=== PATIENT | female | born 1945 | race Caucasian/White ===

== ENCOUNTER 2017-05-06 14:33 | Emergency (ER) | payer MEDICARE, BC, OTHER ==
--- NOTE | 2017-05-06 14:46 | EDM.PDOC ---
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 She complains also of left ribs which she injured in the past they have left wrist and left knee pain. She has had a total knee replacement. Should not pass out or blackout and she did not strike her face but says that after she went to the ground she may have skidded her face so there is some sensitivity to the skin there. She has no facial pain no neck or back pain and no chest pain except underneath the breast on the left. Prior to this event she was in her usual state of good health and was having a normal day and had no systemic complaints of dizziness lightheadedness chest pain shortness of breath abdominal pain nausea vomiting fevers or chills. Patient denies any neurosensory changes and arrives without backboard and collar due to her lack of pain there. Patient says her last INR was 2.2. She states that she is on Coumadin currently because of a history of A. fib and because of her simple fall with anticoagulation she merited trauma alert. Review of systems: As per history of present illness and below otherwise all systems reviewed and negative. Past medical history: As per history of present illness and as reviewed below otherwise noncontributory. Surgical history: As per history of present illness and as reviewed below otherwise noncontributory. Social history: No reported history of drug or alcohol abuse. Family history: As per history of present illness and as reviewed below otherwise noncontributory. Physical exam: Gen.: Well-developed overweight female who is nontoxic and speaking clearly and easily in the ED. Vital signs were noted by me HEENT: Atraumatic, normocephalic, pupils reactive, negative for conjunctival pallor or scleral icterus, mucous membranes moist, throat clear, neck supple, nontender, trachea midline. There are no midline step-offs in his defects of the cervical spine. There is some pinkish erythema at her mid for head and left cheek area but there are no palpable bony deformities or tenderness and no discrete skin breaks. Teeth are intact. Lungs: Clear to auscultation, breath sounds equal bilaterally, chest tender at the left anterior and lateral ribs without ecchymosis crepitus defects or deformities. There is no worker breathing or sensory muscle use Heart: S1S2, regular rate and irregular rhythm no overt murmurs Abdomen: Soft, nondistended, nontender. Negative for masses or hepatosplenomegaly. Negative for costovertebral tenderness. Pelvis: Stable nontender. Genitourinary: Deferred. Rectal: Deferred. Extremities: Atraumatic appearing throughout but there is some mild tenderness at the left dorsal wrist as well as the anterior knee without defects deformities ecchymosis or gross swelling. Patient has full range of motion of all of these extremities. The legs are, negative for cords or calf pain. Neurovascular unremarkable. Neuro: Awake, alert, oriented. Cranial nerves II through XII unremarkable. Cerebellum unremarkable. Motor and sensory unremarkable throughout. Exam nonfocal. Back: There are no midline step-offs in his defects of the thoracic or lumbar spine no posterior rib or posterior pelvis tenderness. Diagnostics: X-ray of left wrist left knee and left ribs with chest CBC CMP INR EKG Therapeutics: Nebo Please note that because this is a trauma alert was called I will inform and notify Dr. Niadu our surgeon on-call of the findings if it mandates his involvement but at this point it seems to be all injuries that can be managed as an outpatient pending those testing results. All x-rays are negative for any acute findings and the patient is aware of this. She is also aware of her INR of 1.49 and she will contact [facility] where she manages her Coumadin to ask for adjustments in her dosing. I have offered the patient a wrist splint and an Everett bandage for her knee and she declines at this time. Impression: Simple fall with left wrist left knee and left chest wall contusions stable history of Coumadin use with subtherapeutic INR Definitive disposition and diagnosis as appropriate pending reevaluation and review of above. lt rib Pain Score (Numeric/FACES): 8 - Related Data Allergies Allergy/AdvReac Type Severity Reaction Status Date / Time amoxicillin Allergy Rash Verified 11/05/15 11:23 cephalexin monohydrate Allergy Rash Verified 11/05/15 11:23 [From Keflex] Penicillins Allergy Rash Verified 11/05/15 11:23 rofecoxib [From Vioxx] Allergy Rash Verified 11/05/15 11:23 tetanus toxoid, adsorbed Allergy Rash Verified 11/05/15 11:23 valacyclovir HCl Allergy Rash Verified 11/05/15 11:23 [From Valtrex] wool Allergy Rash Verified 11/05/15 11:23 Avalox Allergy Rash Uncoded 11/05/15 11:23 Bextra Allergy Rash Uncoded 11/05/15 11:23 celebrex Allergy Rash Uncoded 11/05/15 11:23 ferlacit Allergy Hypotension Uncoded 11/05/15 11:23 macrobid Allergy Rash Uncoded 11/05/15 11:23 plastic tape Allergy Rash Uncoded 11/05/15 11:23 Zofran Allergy Rash Uncoded 11/05/15 11:23 ED ROS GENERAL - Review of Systems Review Of Systems: ROS reveals no pertinent complaints other than HPI. ED EXAM, GENERAL - Physical Exam Exam: See Below (See dictation) Course - Vital Signs Last Recorded V/S: Last Vital Signs Temp 36.3 C 05/06/17 15:00 Pulse 83 05/06/17 15:00 Resp 18 05/06/17 15:00 BP 107/66 05/06/17 15:00 Pulse Ox 95 05/06/17 15:00 - Orders/Labs/Meds Orders: Active Orders 24 hr Category Date Time Status EKG Documentation Completion [RC] STAT Care 05/06/17 14:46 Active Labs: Laboratory Tests 05/06/17 05/06/17 05/06/17 Range/Units 15:10 15:10 15:10 WBC 6.79 (4.0-11.0) K/uL RBC 3.89 L (4.30-5.90) M/uL Hgb 11.7 L (12.0-16.0) g/dL Hct 36.1 (36.0-46.0) % MCV 92.8 (80.0-98.0) fL MCH 30.1 (27.0-32.0) pg MCHC 32.4 (31.0-37.0) g/dL RDW Std Deviation 44.9 (28.0-62.0) fl RDW Coeff of Radha 13 (11.0-15.0) % Plt Count 185 (150-400) K/uL MPV 10.60 (7.40-12.00) fL Neut % (Auto) 66.3 (48.0-80.0) % Lymph % (Auto) 23.7 (16.0-40.0) % [place] % (Auto) 7.4 (0.0-15.0) % Eos % (Auto) 2.2 (0.0-7.0) % Baso % (Auto) 0.4 (0.0-1.5) % Neut # (Auto) 4.5 (1.4-5.7) K/uL Lymph # (Auto) 1.6 (0.6-2.4) K/uL [place] # (Auto) 0.5 (0.0-0.8) K/uL Eos # (Auto) 0.2 (0.0-0.7) K/uL Baso # (Auto) 0.0 (0.0-0.1) K/uL Nucleated RBC % 0.0 /100WBC Nucleated RBCs # 0 K/uL INR 1.49 H (0.86-1.11) Sodium 141 (136-146) mmol/L Potassium 3.8 (3.5-5.1) mmol/L Chloride 105 (98-110) mmol/L Carbon Dioxide 26 (21-31) mmol/L BUN 28 H (6.0-23.0) mg/dL Creatinine 1.2 (0.6-1.5) mg/dL Est Cr Clr Drug Dosing 44.63 mL/min Estimated GFR (MDRD) 44.5 ml/min Glucose 123 H (60-110) mg/dL Calcium 9.2 (8.8-10.8) mg/dL Total Bilirubin 0.4 (0.1-1.5) mg/dL AST 23 (5-40) IU/L ALT 13 (8-54) IU/L Alkaline Phosphatase 72 (40-150) Total Protein 7.1 (6.0-8.0) g/dL Albumin 3.7 (3.4-4.8) g/dL Globulin 3.4 (2.0-3.5) g/dL Albumin/Globulin Ratio 1.1 L (1.3-2.8) Meds: Medications Discontinued Medications Generic Name Dose Route Start Last Admin Trade Name Freq PRN Reason Stop Dose Admin Hydrocodone Bitart/Acetaminophen 1 tab 05/06/17 15:09 Nebo 325-7.5 Mg PO 05/06/17 15:10 ONETIME ONE Ketorolac Tromethamine 60 mg 05/06/17 15:24 05/06/17 15:49 Toradol IM 05/06/17 15:25 60 mg ONETIME ONE Administration Departure - Departure Time of Disposition: 16:52 Disposition: Home, Self-Care 01 Condition: Good Clinical Impression: Subtherapeutic international normalized ratio (INR) Chest wall contusion Qualifiers: Encounter type: initial encounter Laterality: left Qualified Code(s): S20.212A - Contusion of left front wall of thorax, initial encounter Contusion of wrist, left Qualifiers: Encounter type: initial encounter Qualified Code(s): S60.212A - Contusion of left wrist, initial encounter Fall Qualifiers: Encounter type: initial encounter Qualified Code(s): W19.XXXA - Unspecified fall, initial encounter Contusion of left knee Qualifiers: Encounter type: initial encounter Qualified Code(s): S80.02XA - Contusion of left knee, initial encounter - Discharge Information Referrals: PCP,None [Ordering Only Provider] - Additional Instructions: The following information is given to patients seen in the emergency department who are being discharged to home. This information is to outline your options for follow-up care. We provide all patients seen in our emergency department with a follow-up referral. The need for follow-up, as well as the timing and circumstances, are variable depending upon the specifics of your emergency department visit. If you don't have a primary care physician on staff, we will provide you with a referral. We always advise you to contact your personal physician following an emergency department visit to inform them of the circumstance of the visit and for follow-up with them and/or the need for any referrals to a consulting specialist. The emergency department will also refer you to a specialist when appropriate. This referral assures that you have the opportunity for followup care with a specialist. All of these measure are taken in an effort to provide you with optimal care, which includes your followup. Under all circumstances we always encourage you to contact your private physician who remains a resource for coordinating your care. When calling for followup care, please make the office aware that this follow-up is from your recent emergency room visit. If for any reason you are refused follow-up, please contact the [facility] emergency department at and ask to speak to the emergency department charge nurse. [facility] Primary [facility]- [facility] Medicine [facility] [address], [place] [address] [address] Please follow-up with one of the clinic providers for further care and evaluation of today's events and return to ER as needed and as discussed. Ice and elevate all areas of discomfort and use medications [id number] for pain. - My Orders Last 24 Hours: My Active Orders 05/06/17 14:46 EKG Documentation Completion [RC] STAT - Assessment/Plan Last 24 Hours: My Active Orders 05/06/17 14:46 EKG Documentation Completion [RC] STAT
[2017-05-06] MEDS ORDERED: Acetaminophen/HYDROcodone 325-7.5 MG Tab PO ONE (15:09)
[2017-05-06] MEDS ORDERED: Ketorolac 60 MG/2 ML SDV IM ONE (15:24)
--- NOTE | 2017-05-06 16:40 | CR ---
EXAMINATION: PA chest and left RIBS HISTORY: Trauma. FINDINGS: The trachea is midline. The cardiomediastinal silhouette is within normal limits. No pulmonary infilt rates, effusions or pneumothorax. Bilateral shoulder replacement hardware noted. No definite acute appearing displaced left-sided rib f racture identified. IMPRESSION: No acute cardiopulmonary process.
--- NOTE | 2017-05-06 16:41 | CR ---
EXAMINATION: Left knee HISTORY: Pain COMPARISON: None TECHNIQUE: 3 views FINDINGS: Left total knee hardware is demonstrated in good position. Definite fracture or acute osseo us abnormality noted. There is a well-corticated ossific densities superior to the patella, likely so ft tissue calcification or old injury. There is induration of Hoffa's fat pad and likely a trace join t effusion. No mineralization appears osteopenic. IMPRESSION: 1. Left total knee hardware without a definite acute osseous abnormality. 2. Probable trace joint effusion.
--- NOTE | 2017-05-06 16:42 | CR ---
EXAMINATION: Left wrist HISTORY: Trauma COMPARISON: None TECHNIQUE: 3 views FINDINGS: There is no acute osseous abnormality, dislocation, or fracture. 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 The osseous structures appear otherwise mildly osteopenic. Mild v ascular calcifications. IMPRESSION: 1. Degenerative changes without acute findings.
== END 2017-05-06 17:45 | disposition home or self-care (01) ==
LOC: MW.ED 14:33
DX: S80.02XA Contusion of left knee, initial encounter (principal); S60.212A Contusion of left wrist, initial encounter; S20.212A Contusion of left front wall of thorax, initial encounter; R79.1 Abnormal coagulation profile; Z96.659 Presence of unspecified artificial knee joint; Z79.01 Long term (current) use of anticoagulants; Z88.0 Allergy status to penicillin; Z88.8 Allergy status to other drugs, medicaments and biological substances; Z91.048 Other nonmedicinal substance allergy status; Z88.7 Allergy status to serum and vaccine; W19.XXXA Unspecified fall, initial encounter; Y93.89 Activity, other specified
CPT/HCPCS: 36415; 71101; 73110; 73562; 80053; 85025; 85610; 93005; 96372; 99285; A9270; J1885; 99284; G0390

== ENCOUNTER 2017-07-04 07:42 | Emergency (ER) | payer MEDICARE, BC, OTHER ==
--- NOTE | 2017-07-04 10:09 | CT ---
CT of the abdomen and pelvis without contrast. HISTORY: Pain TECHNIQUE: Axial CT images were obtained of the abdomen and pelvis without contrast. Coronal and sagi ttal reconstructions obtained. FINDINGS: The lung bases are clear, no pleural effusion. The liver, spleen, adrenal glands, and pancreas appear unremarkable for noncontrast examination. Cyst ectomy. There is no bulky retroperitoneal lymphadenopathy. No abdominal ascites. Minimal nonspecific contreras mesentery appearance. There are no calcifications noted within the kidneys or along the courses of the ureters bilaterally. The large and small bowel are normal in caliber without evidence of obstruction. There is no bulky p elvic lymphadenopathy. No free fluid. No free air. The urinary bladder appears normal. Sutural calcif ications noted along the ventral abdomen. No evidence of an inguinal hernia. Degenerative changes noted within the lumbar spine. Subacute appearing lateral anterolateral rib frac tures are noted. IMPRESSION: 1. No acute findings within the abdomen or pelvis. 2. Subacute appearing anterolateral rib fractures bilaterally.
--- NOTE | 2017-07-04 10:16 | EDM.PDOC ---
ED HPI GENERAL MEDICAL PROBLEM - General Chief Complaint: Lower Extremity Injury/Pain Stated Complaint: LEFT LEG PAIN Time Seen by Provider: 07/04/17 07:50 Source of Information: Reports: Patient History Limitations: Reports: No Limitations - History of Present Illness INITIAL COMMENTS - FREE TEXT/NARRATIVE: History of present illness: [] Review of systems: As per history of present illness and below otherwise all systems reviewed and negative. Past medical history: As per history of present illness and as reviewed below otherwise noncontributory. Surgical history: As per history of present illness and as reviewed below otherwise noncontributory. Social history: No reported history of drug or alcohol abuse. Family history: As per history of present illness and as reviewed below otherwise noncontributory. Physical exam: General: Well developed, well nourished in NAD HEENT: Atraumatic, normocephalic, pupils reactive, negative for conjunctival pallor or scleral icterus, mucous membranes moist, throat clear, neck supple, nontender, trachea midline. Lungs: Clear to auscultation, breath sounds equal bilaterally, chest nontender. Heart: S1S2, regular, negative for clicks, rubs, or JVD. Abdomen: Soft, nondistended, nontender. Negative for masses or hepatosplenomegaly. Negative for costovertebral tenderness. Pelvis: Stable nontender. Genitourinary: Deferred. Rectal: Deferred. Extremities: Atraumatic, negative for cords or calf pain. Neurovascular unremarkable. Neuro: Awake, alert, oriented. Cranial nerves II through XII unremarkable. Cerebellum unremarkable. Motor and sensory unremarkable throughout. Exam nonfocal. Diagnostics: [] Therapeutics: [] Impression: [] Plan: [] Definitive disposition and diagnosis as appropriate pending reevaluation and review of above. left groin Pain Score (Numeric/FACES): 10 - Related Data Allergies Allergy/AdvReac Type Severity Reaction Status Date / Time amoxicillin Allergy Rash Verified 07/04/17 07:55 cephalexin monohydrate Allergy Rash Verified 07/04/17 07:55 [From Keflex] Penicillins Allergy Rash Verified 07/04/17 07:55 rofecoxib [From Vioxx] Allergy Rash Verified 07/04/17 07:55 tetanus toxoid, adsorbed Allergy Rash Verified 07/04/17 07:55 valacyclovir HCl Allergy Rash Verified 07/04/17 07:55 [From Valtrex] wool Allergy Rash Verified 07/04/17 07:55 Avalox Allergy Rash Uncoded 07/04/17 07:55 Bextra Allergy Rash Uncoded 07/04/17 07:55 celebrex Allergy Rash Uncoded 07/04/17 07:55 ferlacit Allergy Hypotension Uncoded 07/04/17 07:55 macrobid Allergy Rash Uncoded 07/04/17 07:55 plastic tape Allergy Rash Uncoded 07/04/17 07:55 Zofran Allergy Rash Uncoded 07/04/17 07:55 Home Meds: Home Meds Acetaminophen [Tylenol] 07/04/17 [History] Bumetanide 2 mg PO BID 07/04/17 [History] Carvedilol [Coreg] 25 mg PO BID 07/04/17 [History] Cyclobenzaprine [Flexeril] 10 mg PO BID PRN #16 tablet 07/04/17 [Rx] Gabapentin [Neurontin] 300 mg PO TID 07/04/17 [History] Metolazone 2.5 mg PO ASDIRECTED 07/04/17 [History] Naproxen Sodium [Aleve] 07/04/17 [History] Potassium Chloride 10 meq PO BID 07/04/17 [History] Warfarin [Coumadin] 0.5 tab PO DAILY 07/04/17 [History] diphenhydrAMINE [Benadryl] 50 mg PO Q4H 07/04/17 [History] rOPINIRole HCl [Requip] 3 mg PO TID 07/04/17 [History] traMADol [Ultram] 50 mg PO ONETIME PRN 07/04/17 [History] Past Medical History HEENT History: Reports: Cataract Cardiovascular History: Reports: Afib Musculoskeletal History: Reports: Other (See Below) Other Musculoskeletal History: MS - Infectious Disease History Infectious Disease History: Reports: Chicken Pox, Measles, Mumps, Shingles - Past Surgical History HEENT Surgical History: Reports: Cataract Surgery, Tonsillectomy GI Surgical History: Reports: Appendectomy, Cholecystectomy, Other (See Below) Other GI Surgeries/Procedures: gastric by pass surgery Female Surgical History: Reports: Hysterectomy, Other (See Below) Other Female Surgeries/Procedures: bladder suspension Musculoskeletal Surgical History: Reports: Knee Replacement, Shoulder Replacement Social & Family History - Family History Family Medical History: Noncontributory - Tobacco Use Smoking Status *Q: Never Smoker Second Hand Smoke Exposure: No - Caffeine Use Caffeine Use: Reports: Coffee, Soda, Tea - Recreational Drug Use Recreational Drug Use: No Review of Systems - Review of Systems Review Of Systems: See Below (See history of present illness) ED EXAM, GENERAL - Physical Exam Exam: See Below (See history of present illness) Course - Vital Signs Last Recorded V/S: Last Vital Signs Temp 97.6 F 07/04/17 07:55 Pulse 82 07/04/17 10:09 Resp 16 07/04/17 10:09 BP 113/60 07/04/17 10:09 Pulse Ox 95 07/04/17 10:09 - Orders/Labs/Meds Labs: Laboratory Tests 07/04/17 07/04/17 Range/Units 08:27 08:27 WBC 5.63 (4.0-11.0) K/uL RBC 3.58 L (4.30-5.90) M/uL Hgb 10.6 L (12.0-16.0) g/dL Hct 33.3 L (36.0-46.0) % MCV 93.0 (80.0-98.0) fL MCH 29.6 (27.0-32.0) pg MCHC 31.8 (31.0-37.0) g/dL RDW Std Deviation 46.9 (28.0-62.0) fl RDW Coeff of Radha 14 (11.0-15.0) % Plt Count 192 (150-400) K/uL MPV 10.10 (7.40-12.00) fL Neut % (Auto) 61.4 (48.0-80.0) % Lymph % (Auto) 26.1 (16.0-40.0) % [place] % (Auto) 8.0 (0.0-15.0) % Eos % (Auto) 4.1 (0.0-7.0) % Baso % (Auto) 0.4 (0.0-1.5) % Neut # (Auto) 3.5 (1.4-5.7) K/uL Lymph # (Auto) 1.5 (0.6-2.4) K/uL [place] # (Auto) 0.5 (0.0-0.8) K/uL Eos # (Auto) 0.2 (0.0-0.7) K/uL Baso # (Auto) 0.0 (0.0-0.1) K/uL Nucleated RBC % 0.0 /100WBC Nucleated RBCs # 0 K/uL INR 1.48 H (0.86-1.11) Departure - Departure Time of Disposition: 10:16 Disposition: Home, Self-Care 01 Condition: Good Clinical Impression: Strain of left inguinal muscle Qualifiers: Encounter type: initial encounter Qualified Code(s): S39.013A - Strain of muscle, fascia and tendon of pelvis, initial encounter - Discharge Information Prescriptions: Cyclobenzaprine [Flexeril] 10 mg PO BID PRN #16 tablet PRN Reason: Pain Referrals: Jen Penn DO [Primary Care Provider] - Forms: ED Department Discharge Additional Instructions: The following information is given to patients seen in the emergency department who are being discharged to home. This information is to outline your options for follow-up care. We provide all patients seen in our emergency department with a follow-up referral. The need for follow-up, as well as the timing and circumstances, are variable depending upon the specifics of your emergency department visit. If you don't have a primary care physician on staff, we will provide you with a referral. We always advise you to contact your personal physician following an emergency department visit to inform them of the circumstance of the visit and for follow-up with them and/or the need for any referrals to a consulting specialist. The emergency department will also refer you to a specialist when appropriate. This referral assures that you have the opportunity for follow-up care with a specialist. All of these measure are taken in an effort to provide you with optimal care, which includes your follow-up. Under all circumstances we always encourage you to contact your private physician who remains a resource for coordinating your care. When calling for follow-up care, please make the office aware that this follow-up is from your recent emergency room visit. If for any reason you are refused follow-up, please contact the [facility] Emergency Department at and asked to speak to the emergency department charge nurse. Flexeril, ice and heat to the area follow-up with primary care as needed return if symptoms worsen or change [facility] [address] [place] [address]
== END 2017-07-04 10:38 | disposition home or self-care (01) ==
LOC: MW.ED 07:42
DX: S39.012A Strain of muscle, fascia and tendon of lower back, initial encounter (principal); I48.91 Unspecified atrial fibrillation; Z79.01 Long term (current) use of anticoagulants; Z88.0 Allergy status to penicillin; Z88.1 Allergy status to other antibiotic agents; Z88.7 Allergy status to serum and vaccine; Z91.048 Other nonmedicinal substance allergy status; X58.XXXA Exposure to other specified factors, initial encounter; Z88.8 Allergy status to other drugs, medicaments and biological substances
CPT/HCPCS: 36415; 74176; 74176-26; 85025; 85610; 99282; 99284-25

== ENCOUNTER 2018-01-12 17:28 | Emergency (ER) | payer MEDICARE, BC, OTHER ==
[2018-01-12] MEDS ORDERED: Ketorolac 60 MG/2 ML SDV IM ONE (18:04)
--- NOTE | 2018-01-12 19:06 | EDM.PDOC ---
ED HPI GENERAL MEDICAL PROBLEM - General Chief Complaint: Back Pain or Injury Stated Complaint: BACK PAIN Time Seen by Provider: 01/12/18 17:29 Source of Information: Reports: Patient History Limitations: Reports: No Limitations - History of Present Illness INITIAL COMMENTS - FREE TEXT/NARRATIVE: HISTORY AND PHYSICAL: History of present illness: Patient is a 72-year-old male who presents to the emergency room today with complaints of low back pain without sciatica. She states she recently did drive in the car over the past few days and has been sedentary. While at work she twisted to grab something off a shelf and had immediate pain to her low back that spread across to both sides. It does not radiate down glutes or down the leg. She denies any recent injury, trauma or fall. States she has used a leftover muscle relaxer which has not seemed to help at this time. She denies any fever, chills, chest pain, shortness of breath or cough. Denies any abdominal pain, nausea, vomiting, diarrhea/constipation or dysuria. Review of systems: As per history of present illness and below otherwise all systems reviewed and negative. Past medical history: As per history of present illness and as reviewed below otherwise noncontributory. Surgical history: As per history of present illness and as reviewed below otherwise noncontributory. Social history: No reported history of drug or alcohol abuse. Family history: As per history of present illness and as reviewed below otherwise noncontributory. Physical exam: General: Well-developed and well-nourished 72-year-old female. Alert and oriented. Nontoxic appearing and in no acute distress. HEENT: Atraumatic, normocephalic, pupils equal and reactive bilaterally, negative for conjunctival pallor or scleral icterus, mucous membranes moist, throat clear, neck supple, nontender, trachea midline. No drooling or trismus noted. No meningeal signs Lungs: Clear to auscultation, breath sounds equal bilaterally, chest nontender. Heart: S1S2, regular rate and rhythm without overt murmur Abdomen: Soft, nondistended, nontender. Negative for masses or hepatosplenomegaly. Negative for costovertebral tenderness. Pelvis: Stable nontender. Genitourinary: Deferred. Rectal: Deferred. Skin: Intact, warm, dry. No lesions or rashes noted. C-spine/Back: No pinpoint vertebral tenderness upon palpation. No crepitus, step -offs or obvious deformities. Patient is ambulatory and able to walk on her heels and toes. Denies any urinary or fecal incontinence. Deep tendon reflexes intact. Denies any numbness or tingling to her distal extremities. Musculoskeletal tenderness when palpating above the area her iliac crests bilaterally Extremities: Atraumatic, moves all extremities per self without difficulty or deficits. negative for cords or calf pain. Neurovascular unremarkable. Neuro: Awake, alert, oriented. Cranial nerves II through XII unremarkable. Cerebellum unremarkable. Motor and sensory unremarkable throughout. Exam nonfocal. Notes: I will obtain a lumbar x-ray at this time. IM Toradol and Flexeril given while waiting for results. Pain does appear muscle related in nature. X-ray shows no evidence of fracture or dislocations. She does have degenerative disc disease throughout the lumbar spine. Grade 1 spondylolysis at L4-L5. This information was shared with the patient. She is aware of the limitations that x- ray provides. Since she already has Flexeril and felt that this did not help alleviate her pain, I will give her [place]. Encouraged her to not to combine this with other medications that cause sedation such as tramadol for Flexeril. We discussed following up with her primary care provider for further evaluation and management as she may need physical therapy if she continues to have discomfort. She is agreeable to plan of care. Denies any further questions or concerns at this time. Diagnostics: Lumbar Xray Therapeutics: Toradol, Norflex Impression: Lumbar Back Pain Degenerative disc disease Plan: 1. Gentle heat and stretching. Avoid in-activity as this can tighten the muscles and cause increased pain. 2. [place] is a narcotic, so do not take when driving or needing to be functioning outside the house. 3. Follow up with your primary care provider later this week. Return to the ED as needed as discuss. Definitive disposition and diagnosis as appropriate pending reevaluation and review of above. Duration: Day(s): Location: Reports: Back Back Pain Score (Numeric/FACES): 8 - Related Data Allergies Allergy/AdvReac Type Severity Reaction Status Date / Time amoxicillin Allergy Rash Verified 01/12/18 17:39 cephalexin monohydrate Allergy Rash Verified 01/12/18 17:39 [From Keflex] Penicillins Allergy Rash Verified 01/12/18 17:39 rofecoxib [From Vioxx] Allergy Rash Verified 01/12/18 17:39 tetanus toxoid, adsorbed Allergy Rash Verified 01/12/18 17:39 valacyclovir HCl Allergy Rash Verified 01/12/18 17:39 [From Valtrex] wool Allergy Rash Verified 01/12/18 17:39 Avalox Allergy Rash Uncoded 01/12/18 17:39 Bextra Allergy Rash Uncoded 01/12/18 17:39 celebrex Allergy Rash Uncoded 01/12/18 17:39 ferlacit Allergy Hypotension Uncoded 01/12/18 17:39 macrobid Allergy Rash Uncoded 01/12/18 17:39 plastic tape Allergy Rash Uncoded 01/12/18 17:39 Zofran Allergy Rash Uncoded 01/12/18 17:39 Home Meds: Home Meds Acetaminophen [Tylenol] 07/04/17 [History] Bumetanide 2 mg PO BID 07/04/17 [History] Carvedilol [Coreg] 25 mg PO BID 07/04/17 [History] Cyclobenzaprine [Flexeril] 10 mg PO BID PRN #16 tablet 07/04/17 [Rx] Gabapentin [Neurontin] 300 mg PO TID 07/04/17 [History] Metolazone 2.5 mg PO ASDIRECTED 07/04/17 [History] Naproxen Sodium [Aleve] 07/04/17 [History] Potassium Chloride 10 meq PO BID 07/04/17 [History] Warfarin [Coumadin] 0.5 tab PO DAILY 07/04/17 [History] diphenhydrAMINE [Benadryl] 50 mg PO Q4H 07/04/17 [History] rOPINIRole HCl [Requip] 3 mg PO TID 07/04/17 [History] traMADol [Ultram] 50 mg PO ONETIME PRN 07/04/17 [History] Past Medical History HEENT History: Reports: Cataract Cardiovascular History: Reports: Afib Musculoskeletal History: Reports: Other (See Below) Other Musculoskeletal History: MS - Infectious Disease History Infectious Disease History: Reports: Chicken Pox, Measles, Mumps, Shingles - Past Surgical History HEENT Surgical History: Reports: Cataract Surgery, Tonsillectomy GI Surgical History: Reports: Appendectomy, Cholecystectomy, Other (See Below) Other GI Surgeries/Procedures: gastric by pass surgery Female Surgical History: Reports: Hysterectomy, Other (See Below) Other Female Surgeries/Procedures: bladder suspension Musculoskeletal Surgical History: Reports: Knee Replacement, Shoulder Replacement Social & Family History - Family History Family Medical History: Noncontributory - Tobacco Use Smoking Status *Q: Never Smoker - Caffeine Use Caffeine Use: Reports: Coffee, Soda, Tea ED ROS GENERAL - Review of Systems Review Of Systems: ROS reveals no pertinent complaints other than HPI. ED EXAM,LOWER BACK PAIN/INJURY - Physical Exam Exam: See Below (See dictation) Course - Vital Signs Last Recorded V/S: Last Vital Signs Temp 97 F 01/12/18 17:42 Pulse 87 01/12/18 17:42 Resp 20 01/12/18 17:42 BP 123/66 01/12/18 17:42 Pulse Ox 97 01/12/18 17:42 - Orders/Labs/Meds Orders: Active Orders 24 hr Category Date Time Status Lumbar Spine 2 or 3V [CR] Stat Exams 01/12/18 18:04 Taken Meds: Medications Discontinued Medications Generic Name Dose Route Start Last Admin Trade Name Juniorq PRN Reason Stop Dose Admin Ketorolac Tromethamine 60 mg 01/12/18 18:04 01/12/18 18:25 Toradol IM 01/12/18 18:05 60 mg ONETIME ONE Administration Orphenadrine Citrate 60 mg 01/12/18 18:04 01/12/18 18:25 Norflex IM 01/12/18 18:05 60 mg NOW STA Administration Departure - Departure Time of Disposition: 19:06 Disposition: Home, Self-Care 01 Clinical Impression: Lumbar back pain Degenerative disc disease Qualifiers: Spinal region: lumbar Qualified Code(s): M51.36 - Other intervertebral disc degeneration, lumbar region - Discharge Information Referrals: PCP,None [Primary Care Provider] - Forms: ED Department Discharge Additional Instructions: The following information is given to patients seen in the emergency department who are being discharged to home. This information is to outline your options for follow-up care. We provide all patients seen in our emergency department with a follow-up referral. The need for follow-up, as well as the timing and circumstances, are variable depending upon the specifics of your emergency department visit. If you don't have a primary care physician on staff, we will provide you with a referral. We always advise you to contact your personal physician following an emergency department visit to inform them of the circumstance of the visit and for follow-up with them and/or the need for any referrals to a consulting specialist. The emergency department will also refer you to a specialist when appropriate. This referral assures that you have the opportunity for follow-up care with a specialist. All of these measure are taken in an effort to provide you with optimal care, which includes your follow-up. Under all circumstances we always encourage you to contact your private physician who remains a resource for coordinating your care. When calling for follow-up care, please make the office aware that this follow-up is from your recent emergency room visit. If for any reason you are refused follow-up, please contact the [facility] Emergency Department at and asked to speak to the emergency department charge nurse. [facility] [address] [place] [id number] 1. Gentle heat and stretching. Avoid in-activity as this can tighten the muscles and cause increased pain. 2. [place] is a narcotic, so do not take when driving or needing to be functioning outside the house. 3. Follow up with your primary care provider later this week. Return to the ED as needed as discuss. - My Orders Last 24 Hours: My Active Orders 01/12/18 18:04 Lumbar Spine 2 or 3V [CR] Stat - Assessment/Plan Last 24 Hours: My Active Orders 01/12/18 18:04 Lumbar Spine 2 or 3V [CR] Stat
--- NOTE | 2018-01-13 08:54 | CR ---
EXAM DATE: 01/12/18 PATIENT'S AGE: 72 Patient: KATYA DAILEY Facility: [place], [place] Site . Site : 1945 Study: XRay Spine Lumbar [id number]/18/2018 7:37:43 PM Ordering Physician: Doctor Beebe Final Report: INDICATION: Pain. FINDINGS: Three views of the lumbar spine were obtained. There is no acute fracture seen. There is scoliosis concave right. There is grade 1 spondylolisthesis of L4 on L5. There is marked degenerative disc disease at L4-5 can L5-S1 level as well as degenerative facet changes at L4-5 and L5-S1. There is marked degenerative disk disease in the visualized portion of the lower thoracic spine and at the T12-L1 level. There is moderate degenerative disc disease at the L1-2 level. There are vascular calcifications. The bones are osteopenic. IMPRESSION: Grade 1 spondylolysis of L4-L5. Degenerative disc disease in the lumbar spine most pronounced at the L4-5 and L5 -S1. Degenerative facet change L4-5 and L5-S1. Degenerative disk disease lower thoracic spine. No acute bone abnormality seen. Dictated by Kenyon Iglesias MD @ 01/12/2018 7:56:10 PM Dictated by: Kenyon Iglesias MD @ 01/12/2018 19:56:24 (Electronic Signature) Report Signed by Proxy. VINH
== END 2018-01-12 20:04 | disposition home or self-care (01) ==
LOC: MW.ED 17:28
DX: M51.36 Other intervertebral disc degeneration, lumbar region (principal); Z88.8 Allergy status to other drugs, medicaments and biological substances; Z79.899 Other long term (current) drug therapy; Z88.7 Allergy status to serum and vaccine; Z91.048 Other nonmedicinal substance allergy status; Z88.1 Allergy status to other antibiotic agents; Z79.01 Long term (current) use of anticoagulants
CPT/HCPCS: 72100; 96372; 99283; J1885; J2360

== ENCOUNTER 2018-04-05 15:55 | Inpatient (IN) | payer MEDICARE, BC, OTHER ==
--- NOTE | 2018-04-05 16:11 | EDM.PDOC ---
ED HPI GENERAL MEDICAL PROBLEM - General Chief Complaint: Chest Pain Stated Complaint: SHORTNESS OF BREATH Time Seen by Provider: 04/05/18 16:05 Source of Information: Reports: Patient History Limitations: Reports: No Limitations - History of Present Illness INITIAL COMMENTS - FREE TEXT/NARRATIVE: History of present illness: []Patient started having chest pain at 3 PM today. She has been having increasing leg swelling and Dr. Rush told her to take one extra diuretic pill per dose for the last week but it has not been helping. Patient has been having increasing anemia and had a colonoscopy 3 days ago in [place] which she was told just showed hemorrhoids. She has not been given the formal reading. Review of systems: As per history of present illness and below otherwise all systems reviewed and negative. Past medical history: As per history of present illness and as reviewed below otherwise noncontributory. Surgical history: As per history of present illness and as reviewed below otherwise noncontributory. Social history: No reported history of drug or alcohol abuse. Family history: As per history of present illness and as reviewed below otherwise noncontributory. Physical exam: General: Well developed, well nourished in NAD HEENT: Atraumatic, normocephalic, pupils reactive, negative for conjunctival pallor or scleral icterus, mucous membranes moist, throat clear, neck supple, nontender, trachea midline. Lungs: Clear to auscultation, breath sounds equal bilaterally, chest nontender. Heart: S1S2, regular, negative for clicks, rubs, or JVD. Abdomen: Soft, nondistended, nontender. Negative for masses or hepatosplenomegaly. Negative for costovertebral tenderness. Pelvis: Stable nontender. Genitourinary: Deferred. Rectal: Deferred. Extremities: Atraumatic, 2+ pitting edema bilateral, pulses palpable distally negative for cords or calf pain. Neurovascular unremarkable. Neuro: Awake, alert, oriented. Cranial nerves II through XII unremarkable. Cerebellum unremarkable. Motor and sensory unremarkable throughout. Exam nonfocal. Skin:warm and dry Diagnostics: EKG, CBC, chemistry, troponin, BNP, TSH, INR, chest x-ray and UA, type and screen Therapeutics: Aspirin, Lasix ED Course: Unremarkable Impression: A. fib controlled rate, anemia, chest pain Prescriptions: None Plan: Admit to Dr. Bowman for observation and rule out ME, transfuse blood. Definitive disposition and diagnosis as appropriate pending reevaluation and review of above. chest left side Pain Score (Numeric/FACES): 8 - Related Data Allergies Allergy/AdvReac Type Severity Reaction Status Date / Time amoxicillin Allergy Rash Verified 01/12/18 17:39 cephalexin monohydrate Allergy Rash Verified 01/12/18 17:39 [From Keflex] Penicillins Allergy Rash Verified 01/12/18 17:39 rofecoxib [From Vioxx] Allergy Rash Verified 01/12/18 17:39 tetanus toxoid, adsorbed Allergy Rash Verified 01/12/18 17:39 valacyclovir HCl Allergy Rash Verified 01/12/18 17:39 [From Valtrex] wool Allergy Rash Verified 01/12/18 17:39 Avalox Allergy Rash Uncoded 01/12/18 17:39 Bextra Allergy Rash Uncoded 01/12/18 17:39 celebrex Allergy Rash Uncoded 01/12/18 17:39 ferlacit Allergy Hypotension Uncoded 01/12/18 17:39 macrobid Allergy Rash Uncoded 01/12/18 17:39 plastic tape Allergy Rash Uncoded 01/12/18 17:39 Zofran Allergy Rash Uncoded 01/12/18 17:39 Home Meds: Home Meds Bumetanide 2 mg PO BID 07/04/17 [History] Gabapentin [Neurontin] 300 mg PO TID 07/04/17 [History] Naproxen Sodium [Aleve] 220 mg PO BID PRN 07/04/17 [History] Potassium Chloride 10 meq PO BIDMEALS 07/04/17 [History] Warfarin [Coumadin] 5 mg PO DAILY 07/04/17 [History] diphenhydrAMINE [Benadryl] 50 mg PO TID 07/04/17 [History] metOLazone [Metolazone] 2.5 mg PO MOWEFR 07/04/17 [History] traMADol [Ultram] 50 mg PO Q8H PRN 07/04/17 [History] Acetaminophen [Tylenol Extra Strength] 500 mg PO Q6H PRN 04/05/18 [History] Latanoprost [Xalatan] 1 drop OP BEDTIME 04/05/18 [History] Metoprolol Succinate 100 mg PO DAILY 04/05/18 [History] Nitroglycerin [Nitrostat] 0.3 mg SL Q5M PRN MDD 0.9 04/05/18 [History] rOPINIRole HCl [rOPINIRole] 3 mg PO TID 04/05/18 [History] Past Medical History HEENT History: Reports: Cataract Cardiovascular History: Reports: Afib Musculoskeletal History: Reports: Other (See Below) Other Musculoskeletal History: MS - Infectious Disease History Infectious Disease History: Reports: Chicken Pox, Measles, Mumps, Shingles - Past Surgical History HEENT Surgical History: Reports: Cataract Surgery, Tonsillectomy GI Surgical History: Reports: Appendectomy, Cholecystectomy, Other (See Below) Other GI Surgeries/Procedures: gastric by pass surgery Female Surgical History: Reports: Hysterectomy, Other (See Below) Other Female Surgeries/Procedures: bladder suspension Musculoskeletal Surgical History: Reports: Knee Replacement, Shoulder Replacement Social & Family History - Family History Family Medical History: Noncontributory - Caffeine Use Caffeine Use: Reports: Coffee, Soda, Tea ED ROS GENERAL - Review of Systems Review Of Systems: ROS reveals no pertinent complaints other than HPI. ED EXAM, GENERAL - Physical Exam Exam: See Below (See history of present illness) Course - Vital Signs Last Recorded V/S: Last Vital Signs Temp 98.2 F 04/05/18 16:04 Pulse 103 H 04/05/18 16:04 Resp 20 04/05/18 16:04 BP 117/52 L 04/05/18 16:04 Pulse Ox 97 04/05/18 16:04 - Orders/Labs/Meds Orders: Active Orders 24 hr Category Date Time Status Patient Status [ADT] Stat ADT 04/05/18 17:17 Active EKG 12 Lead [EKG Documentation Completion] [RC] STAT Care 04/05/18 16:00 Active Insert Pena Catheter [Insert Urinary Catheter] [OM.PC] Care 04/05/18 16:45 Ordered Q24H Urinary Catheter Assessment [RC] ASDIRECTED Care 04/05/18 16:37 Active Chest 1V Frontal [CR] Stat Exams 04/05/18 16:15 Taken CULTURE URINE [RM] Stat Lab 04/05/18 17:20 Ordered INR,PT,PROTHROMBIN TIME [COAG] Stat Lab 04/05/18 16:07 Received RED BLOOD CELLS LP [BBK] Stat Lab 04/05/18 16:31 Ordered TYPE AND SCREEN [BBK] Stat Lab 04/05/18 16:31 Ordered UA W/MICROSCOPIC [URIN] Stat Lab 04/05/18 16:55 Ordered Sodium Chloride 0.9% [Saline Flush] Med 04/05/18 16:14 Active 10 ml FLUSH ASDIRECTED PRN Sodium Chloride 0.9% [Saline Flush] Med 04/05/18 16:14 Active 2.5 ml FLUSH ASDIRECTED PRN Saline Lock Insert [OM.PC] Stat Ot 04/05/18 16:11 Ordered Transfuse Red Blood Cells [COMM] Stat Ot 04/05/18 17:09 Ordered Medication Orders Sodium Chloride (Saline Flush) 10 ml FLUSH ASDIRECTED PRN PRN Reason: Keep Vein Open Sodium Chloride (Saline Flush) 2.5 ml FLUSH ASDIRECTED PRN PRN Reason: Keep Vein Open Labs: Laboratory Tests 04/05/18 04/05/18 04/05/18 Range/Units 16:07 16:07 16:07 WBC 10.50 (4.0-11.0) K/uL RBC 3.07 L (4.30-5.90) M/uL Hgb 7.5 L (12.0-16.0) g/dL Hct 24.6 L (36.0-46.0) % MCV 80.1 (80.0-98.0) fL MCH 24.4 L (27.0-32.0) pg MCHC 30.5 L (31.0-37.0) g/dL RDW Std Deviation 44.3 (28.0-62.0) fl RDW Coeff of Radha 15 (11.0-15.0) % Plt Count 310 (150-400) K/uL MPV 9.10 (7.40-12.00) fL Neut % (Auto) 77.0 (48.0-80.0) % Lymph % (Auto) 14.9 L (16.0-40.0) % [place] % (Auto) 7.6 (0.0-15.0) % Eos % (Auto) 0.3 (0.0-7.0) % Baso % (Auto) 0.2 (0.0-1.5) % Neut # (Auto) 8.1 H (1.4-5.7) K/uL Lymph # (Auto) 1.6 (0.6-2.4) K/uL [place] # (Auto) 0.8 (0.0-0.8) K/uL Eos # (Auto) 0.0 (0.0-0.7) K/uL Baso # (Auto) 0.0 (0.0-0.1) K/uL Nucleated RBC % 0.0 /100WBC Nucleated RBCs # 0 K/uL Sodium 137 (136-145) mmol/L Potassium 2.8 L (3.5-5.1) mmol/L Chloride 96 L (98-107) mmol/L Carbon Dioxide 33.0 H (21.0-32.0) mmol/L BUN 27 H (7.0-18.0) mg/dL Creatinine 1.4 H (0.6-1.0) mg/dL Est Cr Clr Drug Dosing 37.72 mL/min Estimated GFR (MDRD) 37.2 ml/min Glucose 129 H (74-106) mg/dL Calcium 8.7 (8.5-10.1) mg/dL Total Bilirubin 0.4 (0.2-1.0) mg/dL AST 21 (15-37) IU/L ALT 21 (14-63) IU/L Alkaline Phosphatase 83 (46-116) U/L Troponin I < 0.050 (0.000-0.056) ng/mL B-Natriuretic Peptide 296 H (<100) PG/ML Total Protein 7.4 (6.4-8.2) g/dL Albumin 3.2 L (3.4-5.0) g/dL Globulin 4.2 H (2.0-3.5) g/dL Albumin/Globulin Ratio 0.8 L (1.3-2.8) TSH 3rd Generation 0.47 (0.36-3.74) uIU/mL Urine Color Urine Appearance Urine pH (5.0-8.0) Ur Specific [place] (1.001-1.035) Urine Protein (NEGATIVE) mg/dL Urine Glucose (UA) (NEGATIVE) mg/dL Urine Ketones (NEGATIVE) mg/dL Urine Occult Blood (NEGATIVE) Urine Nitrite (NEGATIVE) Urine Bilirubin (NEGATIVE) Urine Urobilinogen (<2.0) EU/dL Ur Leukocyte Esterase (NEGATIVE) Urine RBC (0-2/HPF) Urine WBC (0-5/HPF) Ur Epithelial Cells (NONE-FEW) Urine Bacteria (NEGATIVE) 04/05/18 Range/Units 16:55 WBC (4.0-11.0) K/uL RBC (4.30-5.90) M/uL Hgb (12.0-16.0) g/dL Hct (36.0-46.0) % MCV (80.0-98.0) fL MCH (27.0-32.0) pg MCHC (31.0-37.0) g/dL RDW Std Deviation (28.0-62.0) fl RDW Coeff of Radha (11.0-15.0) % Plt Count (150-400) K/uL MPV (7.40-12.00) fL Neut % (Auto) (48.0-80.0) % Lymph % (Auto) (16.0-40.0) % [place] % (Auto) (0.0-15.0) % Eos % (Auto) (0.0-7.0) % Baso % (Auto) (0.0-1.5) % Neut # (Auto) (1.4-5.7) K/uL Lymph # (Auto) (0.6-2.4) K/uL [place] # (Auto) (0.0-0.8) K/uL Eos # (Auto) (0.0-0.7) K/uL Baso # (Auto) (0.0-0.1) K/uL Nucleated RBC % /100WBC Nucleated RBCs # K/uL Sodium (136-145) mmol/L Potassium (3.5-5.1) mmol/L Chloride (98-107) mmol/L Carbon Dioxide (21.0-32.0) mmol/L BUN (7.0-18.0) mg/dL Creatinine (0.6-1.0) mg/dL Est Cr Clr Drug Dosing mL/min Estimated GFR (MDRD) ml/min Glucose (74-106) mg/dL Calcium (8.5-10.1) mg/dL Total Bilirubin (0.2-1.0) mg/dL AST (15-37) IU/L ALT (14-63) IU/L Alkaline Phosphatase (46-116) U/L Troponin I (0.000-0.056) ng/mL B-Natriuretic Peptide (<100) PG/ML Total Protein (6.4-8.2) g/dL Albumin (3.4-5.0) g/dL Globulin (2.0-3.5) g/dL Albumin/Globulin Ratio (1.3-2.8) TSH 3rd Generation (0.36-3.74) uIU/mL Urine Color YELLOW Urine Appearance CLEAR Urine pH 6.0 (5.0-8.0) Ur Specific [place] 1.010 (1.001-1.035) Urine Protein NEGATIVE (NEGATIVE) mg/dL Urine Glucose (UA) NEGATIVE (NEGATIVE) mg/dL Urine Ketones NEGATIVE (NEGATIVE) mg/dL Urine Occult Blood NEGATIVE (NEGATIVE) Urine Nitrite POSITIVE H (NEGATIVE) Urine Bilirubin NEGATIVE (NEGATIVE) Urine Urobilinogen 0.2 (<2.0) EU/dL Ur Leukocyte Esterase NEGATIVE (NEGATIVE) Urine RBC RARE (0-2/HPF) Urine WBC 4-6 (0-5/HPF) Ur Epithelial Cells FEW (NONE-FEW) Urine Bacteria 2+ H (NEGATIVE) Meds: Medications Generic Name Dose Route Start Last Admin Trade Name Freq PRN Reason Stop Dose Admin Sodium Chloride 10 ml 04/05/18 16:14 Saline Flush FLUSH ASDIRECTED PRN Keep Vein Open Sodium Chloride 2.5 ml 04/05/18 16:14 Saline Flush FLUSH ASDIRECTED PRN Keep Vein Open Discontinued Medications Generic Name Dose Route Start Last Admin Trade Name Freq PRN Reason Stop Dose Admin Aspirin 324 mg 04/05/18 16:16 04/05/18 16:25 Aspirin PO 04/05/18 16:17 324 mg ONETIME ONE Administration Furosemide 40 mg 04/05/18 16:15 04/05/18 16:26 Lasix IVPUSH 04/05/18 16:16 40 mg NOW ONE Administration Departure - Departure Time of Disposition: 17:23 Disposition: Home, Self-Care 01 Condition: Good Clinical Impression: Chest pain Qualifiers: Chest pain type: unspecified Qualified Code(s): R07.9 - Chest pain, unspecified Anemia Qualifiers: Anemia type: unspecified type Qualified Code(s): D64.9 - Anemia, unspecified Referrals: PCP,None [Primary Care Provider] - Forms: ED Department Discharge - My Orders Last 24 Hours: My Active Orders 04/05/18 16:00 EKG 12 Lead [EKG Documentation Completion] [RC] STAT 04/05/18 16:07 INR,PT,PROTHROMBIN TIME [COAG] Stat 04/05/18 16:11 Saline Lock Insert [OM.PC] Stat 04/05/18 16:14 Sodium Chloride 0.9% [Saline Flush] 10 ml FLUSH ASDIRECTED PRN Sodium Chloride 0.9% [Saline Flush] 2.5 ml FLUSH ASDIRECTED PRN 04/05/18 16:15 Chest 1V Frontal [CR] Stat 04/05/18 16:31 RED BLOOD CELLS LP [BBK] Stat TYPE AND SCREEN [BBK] Stat 04/05/18 16:37 Urinary Catheter Assessment [RC] ASDIRECTED 04/05/18 16:45 Insert Pena Catheter [Insert Urinary Catheter] [OM.PC] Q24H 04/05/18 16:55 UA W/MICROSCOPIC [URIN] Stat 04/05/18 17:09 Transfuse Red Blood Cells [COMM] Stat 04/05/18 17:17 Patient Status [ADT] Stat 04/05/18 17:20 CULTURE URINE [RM] Stat - Assessment/Plan Last 24 Hours: My Active Orders 04/05/18 16:00 EKG 12 Lead [EKG Documentation Completion] [RC] STAT 04/05/18 16:07 INR,PT,PROTHROMBIN TIME [COAG] Stat 04/05/18 16:11 Saline Lock Insert [OM.PC] Stat 04/05/18 16:14 Sodium Chloride 0.9% [Saline Flush] 10 ml FLUSH ASDIRECTED PRN Sodium Chloride 0.9% [Saline Flush] 2.5 ml FLUSH ASDIRECTED PRN 04/05/18 16:15 Chest 1V Frontal [CR] Stat 04/05/18 16:31 RED BLOOD CELLS LP [BBK] Stat TYPE AND SCREEN [BBK] Stat 04/05/18 16:37 Urinary Catheter Assessment [RC] ASDIRECTED 04/05/18 16:45 Insert Pena Catheter [Insert Urinary Catheter] [OM.PC] Q24H 04/05/18 16:55 UA W/MICROSCOPIC [URIN] Stat 04/05/18 17:09 Transfuse Red Blood Cells [COMM] Stat 04/05/18 17:17 Patient Status [ADT] Stat 04/05/18 17:20 CULTURE URINE [RM] Stat
[2018-04-05] MEDS ORDERED: Sodium Chloride 0.9% 10 ML Syringe FLUSH PRN (16:14)
[2018-04-05] MEDS ORDERED: Furosemide 40 MG/4 ML VIAL IVPUSH ONE ×2 (16:15→22:00)
[2018-04-05] MEDS ORDERED: Aspirin 81 MG Tab.Chew PO ONE (16:16)
[2018-04-05 16:53] LABS: CHLORIDE,CL 96 mmol/L (98-107); SODIUM,NA 137 mmol/L (136-145)
[2018-04-05] MEDS ORDERED: Potassium Chloride 20 MEQ Tab.ER PO ONE ×2 (17:39→21:00)
[2018-04-05] MEDS ORDERED: Magnesium Sulfate/Water 2 GM in Premix Bag 1 BAG IV ONE (18:17)
[2018-04-05] MEDS ORDERED: Nitroglycerin 0.4 MG Tab.SL SL PRN (18:17)
--- NOTE | 2018-04-05 18:27 | PCM.HP ---
H&P History of Present Illness - General Date of Service: 04/05/18 Admit Problem/Dx: Admission Diagnosis/Problem Admission Diagnosis/Problem Chest pain - History of Present Illness Initial Comments - Free Text/Narative: The patient is a 72-year-old female who presented to the ER today with chest pain. The patient reports she has had several episodes throughout the day of exertional chest pain that feels like a twinge with no radiation with associated shortness of breath. She has a history of angina and notes that the pain is different, so she didn't take her home nitroglycerin for it. She also noted that she's had increased swelling in her extremities bilaterally, over the past week and a half. Her PCP, Dr. Penn, directed her to take an extra diuretic pill per dose, but this is not helping. She has history of CHF, but no shortness of breath except with the exertional chest pain. In the ER she was found to be anemic with a hemoglobin of 7.5. She reports that 3 days ago in [place], she had a colonoscopy done and she was told she has hemorrhoids. She denies any bright red blood per stool or dark tarry stools. She has no history of gastric ulcers or bleeding issues. She is on warfarin for A. fib. In the ER , they did lab work, a CBC which showed a low hemoglobin and INR, which was subtherapeutic, CMP that showed a low potassium, elevated BUN and creatinine, a negative initial troponin, elevated BNP, TSH within normal limits and a UA that showed signs of a UTI. A chest x-ray showed mild atelectasis and an EKG showed A. fib. 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 chest left side Pain Score (Numeric/FACES): 8 - Related Data Allergies/Adverse Reactions: Allergies Allergy/AdvReac Type Severity Reaction Status Date / Time amoxicillin Allergy Rash Verified 01/12/18 17:39 cephalexin monohydrate Allergy Rash Verified 01/12/18 17:39 [From Keflex] Penicillins Allergy Rash Verified 01/12/18 17:39 rofecoxib [From Vioxx] Allergy Rash Verified 01/12/18 17:39 tetanus toxoid, adsorbed Allergy Rash Verified 01/12/18 17:39 valacyclovir HCl Allergy Rash Verified 01/12/18 17:39 [From Valtrex] wool Allergy Rash Verified 01/12/18 17:39 Avalox Allergy Rash Uncoded 01/12/18 17:39 Bextra Allergy Rash Uncoded 01/12/18 17:39 celebrex Allergy Rash Uncoded 01/12/18 17:39 ferlacit Allergy Hypotension Uncoded 01/12/18 17:39 macrobid Allergy Rash Uncoded 01/12/18 17:39 plastic tape Allergy Rash Uncoded 01/12/18 17:39 Zofran Allergy Rash Uncoded 01/12/18 17:39 Home Medications: Home Meds Bumetanide 2 mg PO BID 07/04/17 [History] Gabapentin [Neurontin] 300 mg PO TID 07/04/17 [History] Naproxen Sodium [Aleve] 220 mg PO BID PRN 07/04/17 [History] Potassium Chloride 10 meq PO BIDMEALS 07/04/17 [History] Warfarin [Coumadin] 5 mg PO DAILY 07/04/17 [History] diphenhydrAMINE [Benadryl] 50 mg PO TID 07/04/17 [History] metOLazone [Metolazone] 2.5 mg PO MOWEFR 07/04/17 [History] traMADol [Ultram] 50 mg PO Q8H PRN 07/04/17 [History] Acetaminophen [Tylenol Extra Strength] 500 mg PO Q6H PRN 04/05/18 [History] Latanoprost [Xalatan] 1 drop OP BEDTIME 04/05/18 [History] Metoprolol Succinate 100 mg PO DAILY 04/05/18 [History] Nitroglycerin [Nitrostat] 0.3 mg SL Q5M PRN MDD 0.9 04/05/18 [History] rOPINIRole HCl [rOPINIRole] 3 mg PO TID 04/05/18 [History] Past Medical History HEENT History: Reports: Cataract Cardiovascular History: Reports: Afib, Angina, Other (See Below) (CHF) Respiratory History: Reports: None Genitourinary History: Reports: None Musculoskeletal History: Reports: Fibromyalgia, Other (See Below) (osteopenia) Neurological History: Reports: None, MS Psychiatric History: Reports: None Endocrine/Metabolic History: Reports: None Hematologic History: Reports: None, Anticoagulation Therapy Immunologic History: Reports: None Oncologic (Cancer) History: Reports: Basal Cell Carcinoma - Infectious Disease History Infectious Disease History: Reports: Chicken Pox, Measles, Mumps, Shingles - Past Surgical History HEENT Surgical History: Reports: Cataract Surgery, Tonsillectomy GI Surgical History: Reports: Appendectomy, Cholecystectomy, Other (See Below) Other GI Surgeries/Procedures: gastric by pass surgery Female Surgical History: Reports: Hysterectomy, Other (See Below) Other Female Surgeries/Procedures: bladder suspension Musculoskeletal Surgical History: Reports: Knee Replacement, Shoulder Replacement Social & Family History - Family History Family Medical History: Noncontributory - Tobacco Use Smoking Status *Q: Never Smoker Second Hand Smoke Exposure: No - Caffeine Use Caffeine Use: Reports: Coffee, Tea - Alcohol Use Date of Last Drink: 07/21/17 - Recreational Drug Use Recreational Drug Use: No H&P Review of Systems - Review of Systems: Review Of Systems: See Below General: Reports: No Symptoms HEENT: Reports: No Symptoms Pulmonary: Reports: Shortness of Breath (with exertional chest pain, none at rest) Cardiovascular: Reports: Chest Pain, Dyspnea on Exertion, Edema. Denies: Orthopnea Gastrointestinal: Reports: No Symptoms. Denies: Abdominal Pain, Black Stool, Bloody Stool, Hematochezia, Melena Genitourinary: Reports: No Symptoms Musculoskeletal: Reports: No Symptoms Skin: Reports: No Symptoms Psychiatric: Reports: No Symptoms Neurological: Reports: No Symptoms Hematologic/Lymphatic: Reports: Anemia Immunologic: Reports: No Symptoms Exam - Exam Exam: See Below - Vital Signs Vital Signs: Last Vital Signs Temp 98.3 F 04/05/18 17:56 Pulse 95 04/05/18 17:56 Resp 18 04/05/18 17:56 BP 123/64 04/05/18 17:56 Pulse Ox 95 04/05/18 17:56 Weight: 142.428 kg - Exam General: Alert, Oriented, Cooperative HEENT: Conjunctiva Clear, EOMI, Mucosa Moist & [place], Posterior Pharynx Clear, Pupils Equal, Pupils Reactive Neck: Supple, Trachea Midline Lungs: Clear to Auscultation, Normal Respiratory Effort Cardiovascular: Regular Rate, Regular Rhythm GI/Abdominal Exam: Normal Bowel Sounds, Soft, Non-Tender, No Distention Rectal (Female) Exam: Normal Rectal Tone, Hemorrhoids (external). No: Black Stool, Bloody Stool Extremities: Pedal Edema (2+ pitting) Skin: Warm, Dry Neuro Extensive - Mental Status: Alert, Oriented x3 Psychiatric: Alert, Normal Affect, Normal Mood - Patient Data Lab Results Last 24 hrs: Laboratory Results - last 24 hr 04/05/18 04/05/18 04/05/18 Range/Units 16:07 16:07 16:07 WBC 10.50 (4.0-11.0) K/uL RBC 3.07 L (4.30-5.90) M/uL Hgb 7.5 L (12.0-16.0) g/dL Hct 24.6 L (36.0-46.0) % MCV 80.1 (80.0-98.0) fL MCH 24.4 L (27.0-32.0) pg MCHC 30.5 L (31.0-37.0) g/dL RDW Std Deviation 44.3 (28.0-62.0) fl RDW Coeff of Radha 15 (11.0-15.0) % Plt Count 310 (150-400) K/uL MPV 9.10 (7.40-12.00) fL Neut % (Auto) 77.0 (48.0-80.0) % Lymph % (Auto) 14.9 L (16.0-40.0) % [place] % (Auto) 7.6 (0.0-15.0) % Eos % (Auto) 0.3 (0.0-7.0) % Baso % (Auto) 0.2 (0.0-1.5) % Neut # (Auto) 8.1 H (1.4-5.7) K/uL Lymph # (Auto) 1.6 (0.6-2.4) K/uL [place] # (Auto) 0.8 (0.0-0.8) K/uL Eos # (Auto) 0.0 (0.0-0.7) K/uL Baso # (Auto) 0.0 (0.0-0.1) K/uL Nucleated RBC % 0.0 /100WBC Nucleated RBCs # 0 K/uL INR Sodium 137 (136-145) mmol/L Potassium 2.8 L (3.5-5.1) mmol/L Chloride 96 L (98-107) mmol/L Carbon Dioxide 33.0 H (21.0-32.0) mmol/L BUN 27 H (7.0-18.0) mg/dL Creatinine 1.4 H (0.6-1.0) mg/dL Est Cr Clr Drug Dosing 37.72 mL/min Estimated GFR (MDRD) 37.2 ml/min Glucose 129 H (74-106) mg/dL Calcium 8.7 (8.5-10.1) mg/dL Magnesium (1.8-2.4) mg/dL Total Bilirubin 0.4 (0.2-1.0) mg/dL AST 21 (15-37) IU/L ALT 21 (14-63) IU/L Alkaline Phosphatase 83 (46-116) U/L Troponin I < 0.050 (0.000-0.056) ng/mL B-Natriuretic Peptide 296 H (<100) PG/ML Total Protein 7.4 (6.4-8.2) g/dL Albumin 3.2 L (3.4-5.0) g/dL Globulin 4.2 H (2.0-3.5) g/dL Albumin/Globulin Ratio 0.8 L (1.3-2.8) TSH 3rd Generation 0.47 (0.36-3.74) uIU/mL Urine Color Urine Appearance Urine pH (5.0-8.0) Ur Specific [place] (1.001-1.035) Urine Protein (NEGATIVE) mg/dL Urine Glucose (UA) (NEGATIVE) mg/dL Urine Ketones (NEGATIVE) mg/dL Urine Occult Blood (NEGATIVE) Urine Nitrite (NEGATIVE) Urine Bilirubin (NEGATIVE) Urine Urobilinogen (<2.0) EU/dL Ur Leukocyte Esterase (NEGATIVE) Urine RBC (0-2/HPF) Urine WBC (0-5/HPF) Ur Epithelial Cells (NONE-FEW) Urine Bacteria (NEGATIVE) 04/05/18 04/05/18 04/05/18 Range/Units 16:07 16:07 16:55 WBC (4.0-11.0) K/uL RBC (4.30-5.90) M/uL Hgb (12.0-16.0) g/dL Hct (36.0-46.0) % MCV (80.0-98.0) fL MCH (27.0-32.0) pg MCHC (31.0-37.0) g/dL RDW Std Deviation (28.0-62.0) fl RDW Coeff of Radha (11.0-15.0) % Plt Count (150-400) K/uL MPV (7.40-12.00) fL Neut % (Auto) (48.0-80.0) % Lymph % (Auto) (16.0-40.0) % [place] % (Auto) (0.0-15.0) % Eos % (Auto) (0.0-7.0) % Baso % (Auto) (0.0-1.5) % Neut # (Auto) (1.4-5.7) K/uL Lymph # (Auto) (0.6-2.4) K/uL [place] # (Auto) (0.0-0.8) K/uL Eos # (Auto) (0.0-0.7) K/uL Baso # (Auto) (0.0-0.1) K/uL Nucleated RBC % /100WBC Nucleated RBCs # K/uL INR 1.12 Sodium (136-145) mmol/L Potassium (3.5-5.1) mmol/L Chloride (98-107) mmol/L Carbon Dioxide (21.0-32.0) mmol/L BUN (7.0-18.0) mg/dL Creatinine (0.6-1.0) mg/dL Est Cr Clr Drug Dosing mL/min Estimated GFR (MDRD) ml/min Glucose (74-106) mg/dL Calcium (8.5-10.1) mg/dL Magnesium 1.7 L (1.8-2.4) mg/dL Total Bilirubin (0.2-1.0) mg/dL AST (15-37) IU/L ALT (14-63) IU/L Alkaline Phosphatase (46-116) U/L Troponin I (0.000-0.056) ng/mL B-Natriuretic Peptide (<100) PG/ML Total Protein (6.4-8.2) g/dL Albumin (3.4-5.0) g/dL Globulin (2.0-3.5) g/dL Albumin/Globulin Ratio (1.3-2.8) TSH 3rd Generation (0.36-3.74) uIU/mL Urine Color YELLOW Urine Appearance CLEAR Urine pH 6.0 (5.0-8.0) Ur Specific [place] 1.010 (1.001-1.035) Urine Protein NEGATIVE (NEGATIVE) mg/dL Urine Glucose (UA) NEGATIVE (NEGATIVE) mg/dL Urine Ketones NEGATIVE (NEGATIVE) mg/dL Urine Occult Blood NEGATIVE (NEGATIVE) Urine Nitrite POSITIVE H (NEGATIVE) Urine Bilirubin NEGATIVE (NEGATIVE) Urine Urobilinogen 0.2 (<2.0) EU/dL Ur Leukocyte Esterase NEGATIVE (NEGATIVE) Urine RBC RARE (0-2/HPF) Urine WBC 4-6 (0-5/HPF) Ur Epithelial Cells FEW (NONE-FEW) Urine Bacteria 2+ H (NEGATIVE) Result Diagrams: 04/05/18 16:07 04/05/18 16:07 Problem List Initiated/Reviewed/Updated: Yes Orders Last 24hrs: Active Orders 24 hr Category Date Time Status Patient Status [ADT] Stat ADT 04/05/18 17:17 Active Insert Pena Catheter [Insert Urinary Catheter] [OM.PC] Care 04/05/18 16:45 Ordered Q24H Intake and Output Strict [RC] ASDIRECTED Care 04/05/18 18:17 Ordered Urinary Catheter Assessment [RC] ASDIRECTED Care 04/05/18 16:37 Active Vital Signs [RC] PER UNIT ROUTINE Care 04/05/18 18:17 Ordered Chest 1V Frontal [CR] Stat Exams 04/05/18 16:15 Taken Venous Doppler Lwr Ext Bi [US] Routine Exams 04/05/18 18:26 Ordered CULTURE URINE [RM] Stat Lab 04/05/18 16:55 Ordered FERRITIN [CHEM] Routine Lab 04/05/18 18:17 Ordered IRON/TIBC [CHEM] Routine Lab 04/05/18 18:17 Ordered RED BLOOD CELLS LP [BBK] Stat Lab 04/05/18 16:31 Ordered RETICULOCYTE COUNT [HEME] Routine Lab 04/05/18 18:17 Ordered TROPONIN I [CHEM] Routine Lab 04/06/18 00:00 Ordered TROPONIN I [CHEM] Routine Lab 04/06/18 08:00 Ordered TYPE AND SCREEN [BBK] Stat Lab 04/05/18 16:31 Ordered UA W/MICROSCOPIC [URIN] Stat Lab 04/05/18 16:55 Ordered Furosemide [Lasix] Med 04/05/18 22:00 Once 40 mg IVPUSH NOW ONE Magnesium Sulfate/Water [Magnesium Sulfate 2 GM in Med 04/05/18 18:17 Ordered Water 50 ML] 2 gm Premix Bag 1 bag IV ONETIME Morphine Med 04/05/18 18:17 Ordered 2 mg IVPUSH Q2H PRN Nitroglycerin [Nitrostat] Med 04/05/18 18:17 Ordered 0.4 mg SL Q5M PRN Potassium Chloride [Klor-Con M20] Med 04/05/18 21:00 Once 40 meq PO ONETIME ONE Sodium Chloride 0.9% [Saline Flush] Med 04/05/18 16:14 Active 10 ml FLUSH ASDIRECTED PRN Sodium Chloride 0.9% [Saline Flush] Med 04/05/18 16:14 Active 2.5 ml FLUSH ASDIRECTED PRN Saline Lock Insert [OM.PC] Stat Oth 04/05/18 16:11 Ordered Transfuse Red Blood Cells [COMM] Stat Oth 04/05/18 17:09 Ordered Resuscitation Status Routine Resus Stat 04/05/18 18:17 Ordered Medication Orders Furosemide (Lasix) 40 mg IVPUSH NOW ONE Stop: 04/05/18 22:01 Magnesium Sulfate 2 gm/ Premix 50 mls @ 50 mls/hr IV ONETIME ONE Stop: 04/05/18 19:16 Morphine Sulfate (Morphine) 2 mg IVPUSH Q2H PRN PRN Reason: Chest Pain Nitroglycerin (Nitrostat) 0.4 mg SL Q5M PRN PRN Reason: Chest Pain Potassium Chloride (Klor-Con M20) 40 meq PO ONETIME ONE Stop: 04/05/18 21:01 Sodium Chloride (Saline Flush) 10 ml FLUSH ASDIRECTED PRN PRN Reason: Keep Vein Open Sodium Chloride (Saline Flush) 2.5 ml FLUSH ASDIRECTED PRN PRN Reason: Keep Vein Open Assessment/Plan Comment:: 1. admit for observation 2. Code Status- full 3. Vitals per routine 4. I/Os strict 5. Diet- heart healthy 6. Chest pain-exertional- trend troponins, place on telemetry, morphine and nitro as needed for chest pain 7. Bilateral lower extremity edema likely related to CHF- This is likely related to CHF but we will get a US to rule out DVT. She received 40 mg of lasix in the ER. We will give her an additional 40 after her 1st unit of blood. 8. Anemia- will give her 2 units of blood. Started on PPi Hemoccult, iron studies, ferritin, and reticulocyte count pending 9. NISREEN- monitor, no fluids due to CHF 10. UTI- UC pending, antibiotics with macrobid 11. Hypokalemia- she was given 80 mEq in the ER, will give another 40 mEq tonight and recheck in the AM 12. Hypomagnesemia- will replace with 2 grams and recheck in the AM.
[2018-04-05] MEDS: Pantoprazole 40 MG Vial IVPUSH SCH (20:11)
[2018-04-05] MEDS: diphenhydrAMINE 50 MG Cap PO SCH (21:42)
[2018-04-05] MEDS: rOPINIRole 1 MG Tab PO SCH (21:42)
[2018-04-05] MEDS: Gabapentin 300 MG Cap PO SCH (21:42)
[2018-04-05] MEDS: Nitrofurantoin Monohydrate/Macrocrystalline 100 MG Cap PO SCH (21:42)
[2018-04-05] MEDS: Latanoprost 0.005% Ophth Soln 2.5 ML Bottle EYERT SCH (22:24)
[2018-04-06] MEDS: rOPINIRole 1 MG Tab PO SCH ×3 (06:44→21:34)
[2018-04-06] MEDS: Gabapentin 300 MG Cap PO SCH ×3 (06:44→21:33)
[2018-04-06] MEDS: diphenhydrAMINE 50 MG Cap PO SCH ×3 (06:44→21:33)
[2018-04-06] MEDS ORDERED: Ondansetron 4 MG/2 ML SDV IVPUSH PRN (08:09)
--- NOTE | 2018-04-06 08:41 | PCM.PN ---
- General Info Date of Service: 04/06/18 Subjective Update: Patient is 72 year old female admitted for chest pain, bilateral edema, and anemia. She has not had any chest pain since admission. Her troponins have been negative so far. She did receive lasix yesterday and notes improvement in her edema, she feels like they have gone down and they are softer this morning. She denies shortness of breath but does not orthopnea at baseline. She notes she has to sleep elevated or in her chair. She received 2 units of blood yesterday and developed fever and chills after the 2nd unit. She endorses some nausea this morning which is new. - Review of Systems General: Reports: Fever, Chills HEENT: Reports: No Symptoms Pulmonary: Reports: No Symptoms Cardiovascular: Reports: Orthopnea, Edema Gastrointestinal: Reports: Nausea. Denies: Abdominal Pain, Vomiting Genitourinary: Reports: No Symptoms Musculoskeletal: Reports: No Symptoms Skin: Reports: No Symptoms Neurological: Reports: No Symptoms Psychiatric: Reports: No Symptoms - Patient Data Vitals - Most Recent: Last Vital Signs Temp 98.7 F 04/06/18 07:56 Pulse 104 H 04/06/18 07:56 Resp 18 04/06/18 07:56 BP 158/77 H 04/06/18 07:56 Pulse Ox 93 L 04/06/18 07:56 Weight - Most Recent: 142.428 kg I&O - Last 24 Hours: Intake & Output 04/05/18 04/06/18 04/06/18 22:59 06:59 14:59 Intake Total 397 950 Output Total 6250 Balance 397 -5300 Lab Results Last 24 Hours: Laboratory Results - last 24 hr 04/05/18 04/05/18 04/05/18 Range/Units 16:07 16:07 16:07 WBC 10.50 (4.0-11.0) K/uL RBC 3.07 L (4.30-5.90) M/uL Hgb 7.5 L (12.0-16.0) g/dL Hct 24.6 L (36.0-46.0) % MCV 80.1 (80.0-98.0) fL MCH 24.4 L (27.0-32.0) pg MCHC 30.5 L (31.0-37.0) g/dL RDW Std Deviation 44.3 (28.0-62.0) fl RDW Coeff of Radha 15 (11.0-15.0) % Plt Count 310 (150-400) K/uL MPV 9.10 (7.40-12.00) fL Neut % (Auto) 77.0 (48.0-80.0) % Lymph % (Auto) 14.9 L (16.0-40.0) % [place] % (Auto) 7.6 (0.0-15.0) % Eos % (Auto) 0.3 (0.0-7.0) % Baso % (Auto) 0.2 (0.0-1.5) % Neut # (Auto) 8.1 H (1.4-5.7) K/uL Lymph # (Auto) 1.6 (0.6-2.4) K/uL Merrick # (Auto) 0.8 (0.0-0.8) K/uL Eos # (Auto) 0.0 (0.0-0.7) K/uL Baso # (Auto) 0.0 (0.0-0.1) K/uL Nucleated RBC % 0.0 /100WBC Nucleated RBCs # 0 K/uL Absolute Retic (20-80) K/uL Percent Retic (0.5-1.5) % Immature Retic Fraction % INR Sodium 137 (136-145) mmol/L Potassium 2.8 L (3.5-5.1) mmol/L Chloride 96 L (98-107) mmol/L Carbon Dioxide 33.0 H (21.0-32.0) mmol/L BUN 27 H (7.0-18.0) mg/dL Creatinine 1.4 H (0.6-1.0) mg/dL Est Cr Clr Drug Dosing 37.72 mL/min Estimated GFR (MDRD) 37.2 ml/min Glucose 129 H (74-106) mg/dL Calcium 8.7 (8.5-10.1) mg/dL Magnesium (1.8-2.4) mg/dL Iron (50-175) ug/dL TIBC (250-450) ug/dL % Saturation (20-55) % Ferritin (8-252) ng/mL Total Bilirubin 0.4 (0.2-1.0) mg/dL AST 21 (15-37) IU/L ALT 21 (14-63) IU/L Alkaline Phosphatase 83 (46-116) U/L Troponin I < 0.050 (0.000-0.056) ng/mL B-Natriuretic Peptide 296 H (<100) PG/ML Total Protein 7.4 (6.4-8.2) g/dL Albumin 3.2 L (3.4-5.0) g/dL Globulin 4.2 H (2.0-3.5) g/dL Albumin/Globulin Ratio 0.8 L (1.3-2.8) TSH 3rd Generation 0.47 (0.36-3.74) uIU/mL Urine Color Urine Appearance Urine pH (5.0-8.0) Ur Specific [place] (1.001-1.035) Urine Protein (NEGATIVE) mg/dL Urine Glucose (UA) (NEGATIVE) mg/dL Urine Ketones (NEGATIVE) mg/dL Urine Occult Blood (NEGATIVE) Urine Nitrite (NEGATIVE) Urine Bilirubin (NEGATIVE) Urine Urobilinogen (<2.0) EU/dL Ur Leukocyte Esterase (NEGATIVE) Urine RBC (0-2/HPF) Urine WBC (0-5/HPF) Ur Epithelial Cells (NONE-FEW) Urine Bacteria (NEGATIVE) Blood Type Antibody Screen Crossmatch 04/05/18 04/05/18 04/05/18 Range/Units 16:07 16:07 16:07 WBC (4.0-11.0) K/uL RBC 3.03 L (4.30-5.90) M/uL Hgb (12.0-16.0) g/dL Hct (36.0-46.0) % MCV (80.0-98.0) fL MCH (27.0-32.0) pg MCHC (31.0-37.0) g/dL RDW Std Deviation (28.0-62.0) fl RDW Coeff of Radha (11.0-15.0) % Plt Count (150-400) K/uL MPV (7.40-12.00) fL Neut % (Auto) (48.0-80.0) % Lymph % (Auto) (16.0-40.0) % Merrick % (Auto) (0.0-15.0) % Eos % (Auto) (0.0-7.0) % Baso % (Auto) (0.0-1.5) % Neut # (Auto) (1.4-5.7) K/uL Lymph # (Auto) (0.6-2.4) K/uL Merrick # (Auto) (0.0-0.8) K/uL Eos # (Auto) (0.0-0.7) K/uL Baso # (Auto) (0.0-0.1) K/uL Nucleated RBC % /100WBC Nucleated RBCs # K/uL Absolute Retic 66.70 (20-80) K/uL Percent Retic 2.2 H (0.5-1.5) % Immature Retic Fraction 32 % INR 1.12 Sodium (136-145) mmol/L Potassium (3.5-5.1) mmol/L Chloride (98-107) mmol/L Carbon Dioxide (21.0-32.0) mmol/L BUN (7.0-18.0) mg/dL Creatinine (0.6-1.0) mg/dL Est Cr Clr Drug Dosing mL/min Estimated GFR (MDRD) ml/min Glucose (74-106) mg/dL Calcium (8.5-10.1) mg/dL Magnesium 1.7 L (1.8-2.4) mg/dL Iron (50-175) ug/dL TIBC (250-450) ug/dL % Saturation (20-55) % Ferritin (8-252) ng/mL Total Bilirubin (0.2-1.0) mg/dL AST (15-37) IU/L ALT (14-63) IU/L Alkaline Phosphatase (46-116) U/L Troponin I (0.000-0.056) ng/mL B-Natriuretic Peptide (<100) PG/ML Total Protein (6.4-8.2) g/dL Albumin (3.4-5.0) g/dL Globulin (2.0-3.5) g/dL Albumin/Globulin Ratio (1.3-2.8) TSH 3rd Generation (0.36-3.74) uIU/mL Urine Color Urine Appearance Urine pH (5.0-8.0) Ur Specific [place] (1.001-1.035) Urine Protein (NEGATIVE) mg/dL Urine Glucose (UA) (NEGATIVE) mg/dL Urine Ketones (NEGATIVE) mg/dL Urine Occult Blood (NEGATIVE) Urine Nitrite (NEGATIVE) Urine Bilirubin (NEGATIVE) Urine Urobilinogen (<2.0) EU/dL Ur Leukocyte Esterase (NEGATIVE) Urine RBC (0-2/HPF) Urine WBC (0-5/HPF) Ur Epithelial Cells (NONE-FEW) Urine Bacteria (NEGATIVE) Blood Type Antibody Screen Crossmatch 04/05/18 04/05/18 04/05/18 Range/Units 16:07 16:42 16:55 WBC (4.0-11.0) K/uL RBC (4.30-5.90) M/uL Hgb (12.0-16.0) g/dL Hct (36.0-46.0) % MCV (80.0-98.0) fL MCH (27.0-32.0) pg MCHC (31.0-37.0) g/dL RDW Std Deviation (28.0-62.0) fl RDW Coeff of Radha (11.0-15.0) % Plt Count (150-400) K/uL MPV (7.40-12.00) fL Neut % (Auto) (48.0-80.0) % Lymph % (Auto) (16.0-40.0) % [place] % (Auto) (0.0-15.0) % Eos % (Auto) (0.0-7.0) % Baso % (Auto) (0.0-1.5) % Neut # (Auto) (1.4-5.7) K/uL Lymph # (Auto) (0.6-2.4) K/uL [place] # (Auto) (0.0-0.8) K/uL Eos # (Auto) (0.0-0.7) K/uL Baso # (Auto) (0.0-0.1) K/uL Nucleated RBC % /100WBC Nucleated RBCs # K/uL Absolute Retic (20-80) K/uL Percent Retic (0.5-1.5) % Immature Retic Fraction % INR Sodium (136-145) mmol/L Potassium (3.5-5.1) mmol/L Chloride (98-107) mmol/L Carbon Dioxide (21.0-32.0) mmol/L BUN (7.0-18.0) mg/dL Creatinine (0.6-1.0) mg/dL Est Cr Clr Drug Dosing mL/min Estimated GFR (MDRD) ml/min Glucose (74-106) mg/dL Calcium (8.5-10.1) mg/dL Magnesium (1.8-2.4) mg/dL Iron 16 L (50-175) ug/dL TIBC 466 H (250-450) ug/dL % Saturation 3.43 L (20-55) % Ferritin 27 (8-252) ng/mL Total Bilirubin (0.2-1.0) mg/dL AST (15-37) IU/L ALT (14-63) IU/L Alkaline Phosphatase (46-116) U/L Troponin I (0.000-0.056) ng/mL B-Natriuretic Peptide (<100) PG/ML Total Protein (6.4-8.2) g/dL Albumin (3.4-5.0) g/dL Globulin (2.0-3.5) g/dL Albumin/Globulin Ratio (1.3-2.8) TSH 3rd Generation (0.36-3.74) uIU/mL Urine Color YELLOW Urine Appearance CLEAR Urine pH 6.0 (5.0-8.0) Ur Specific [place] 1.010 (1.001-1.035) Urine Protein NEGATIVE (NEGATIVE) mg/dL Urine Glucose (UA) NEGATIVE (NEGATIVE) mg/dL Urine Ketones NEGATIVE (NEGATIVE) mg/dL Urine Occult Blood NEGATIVE (NEGATIVE) Urine Nitrite POSITIVE H (NEGATIVE) Urine Bilirubin NEGATIVE (NEGATIVE) Urine Urobilinogen 0.2 (<2.0) EU/dL Ur Leukocyte Esterase NEGATIVE (NEGATIVE) Urine RBC RARE (0-2/HPF) Urine WBC 4-6 (0-5/HPF) Ur Epithelial Cells FEW (NONE-FEW) Urine Bacteria 2+ H (NEGATIVE) Blood Type A POSITIVE Antibody Screen NEGATIVE Crossmatch See Detail 04/06/18 04/06/18 04/06/18 Range/Units 00:20 03:35 03:35 WBC 11.06 H (4.0-11.0) K/uL RBC 3.44 L (4.30-5.90) M/uL Hgb 8.5 L (12.0-16.0) g/dL Hct 27.5 L (36.0-46.0) % MCV 79.9 L (80.0-98.0) fL MCH 24.7 L (27.0-32.0) pg MCHC 30.9 L (31.0-37.0) g/dL RDW Std Deviation 44.3 (28.0-62.0) fl RDW Coeff of Radha 15 (11.0-15.0) % Plt Count 259 (150-400) K/uL MPV 9.10 (7.40-12.00) fL Neut % (Auto) 73.8 (48.0-80.0) % Lymph % (Auto) 15.3 L (16.0-40.0) % [place] % (Auto) 10.1 (0.0-15.0) % Eos % (Auto) 0.5 (0.0-7.0) % Baso % (Auto) 0.3 (0.0-1.5) % Neut # (Auto) 8.2 H (1.4-5.7) K/uL Lymph # (Auto) 1.7 (0.6-2.4) K/uL [place] # (Auto) 1.1 H (0.0-0.8) K/uL Eos # (Auto) 0.1 (0.0-0.7) K/uL Baso # (Auto) 0.0 (0.0-0.1) K/uL Nucleated RBC % 0.0 /100WBC Nucleated RBCs # 0 K/uL Absolute Retic (20-80) K/uL Percent Retic (0.5-1.5) % Immature Retic Fraction % INR Sodium 138 (136-145) mmol/L Potassium 3.3 L (3.5-5.1) mmol/L Chloride 97 L (98-107) mmol/L Carbon Dioxide 35.6 H (21.0-32.0) mmol/L BUN 25 H (7.0-18.0) mg/dL Creatinine 1.3 H (0.6-1.0) mg/dL Est Cr Clr Drug Dosing 40.62 mL/min Estimated GFR (MDRD) 40.5 ml/min Glucose 129 H (74-106) mg/dL Calcium 8.9 (8.5-10.1) mg/dL Magnesium (1.8-2.4) mg/dL Iron (50-175) ug/dL TIBC (250-450) ug/dL % Saturation (20-55) % Ferritin (8-252) ng/mL Total Bilirubin 1.4 H (0.2-1.0) mg/dL AST 20 (15-37) IU/L ALT 24 (14-63) IU/L Alkaline Phosphatase 79 (46-116) U/L Troponin I < 0.050 (0.000-0.056) ng/mL B-Natriuretic Peptide (<100) PG/ML Total Protein 7.3 (6.4-8.2) g/dL Albumin 3.2 L (3.4-5.0) g/dL Globulin 4.1 H (2.0-3.5) g/dL Albumin/Globulin Ratio 0.8 L (1.3-2.8) TSH 3rd Generation (0.36-3.74) uIU/mL Urine Color Urine Appearance Urine pH (5.0-8.0) Ur Specific [place] (1.001-1.035) Urine Protein (NEGATIVE) mg/dL Urine Glucose (UA) (NEGATIVE) mg/dL Urine Ketones (NEGATIVE) mg/dL Urine Occult Blood (NEGATIVE) Urine Nitrite (NEGATIVE) Urine Bilirubin (NEGATIVE) Urine Urobilinogen (<2.0) EU/dL Ur Leukocyte Esterase (NEGATIVE) Urine RBC (0-2/HPF) Urine WBC (0-5/HPF) Ur Epithelial Cells (NONE-FEW) Urine Bacteria (NEGATIVE) Blood Type Antibody Screen Crossmatch Tye Results Last 24 Hours: Microbiology 04/05/18 18:40 Stool Occult Blood (TYE) - Final Stool / Feces POSITIVE OCCULT BLOOD Med Orders - Current: Current Medications Diphenhydramine HCl (Benadryl) 50 mg PO TID [facility] Last Admin: 04/06/18 06:44 Dose: 50 mg Gabapentin (Neurontin) 300 mg PO TID [facility] Last Admin: 04/06/18 06:44 Dose: 300 mg Latanoprost (Xalatan 0.005% Ophth Soln) 0 ml EYERT BEDTIME [facility] Last Admin: 04/05/18 22:24 Dose: 1 drop Metoprolol Succinate (Toprol Xl) 100 mg PO DAILY [facility] Morphine Sulfate (Morphine) 2 mg IVPUSH Q2H PRN PRN Reason: Chest Pain Naproxen (Naproxen Sodium) 220 mg PO BID PRN PRN Reason: Pain Nitrofurantoin Macrocrystals (Macrobid) 100 mg PO BID [facility] Last Admin: 04/05/18 21:42 Dose: 100 mg Nitroglycerin (Nitrostat) 0.4 mg SL Q5M PRN PRN Reason: Chest Pain Ondansetron HCl (Zofran) 4 mg IVPUSH Q4H PRN PRN Reason: Nausea/Vomiting Pantoprazole Sodium (Protonix Iv) 40 mg IVPUSH Q24H [facility] Last Admin: 04/05/18 20:11 Dose: 40 mg Potassium Chloride (Klor-Con M20) 40 meq PO ONETIME ONE Stop: 04/06/18 09:01 Ropinirole HCl (Requip) 3 mg PO TID [facility] Last Admin: 04/06/18 06:44 Dose: 3 mg Sodium Chloride (Saline Flush) 10 ml FLUSH ASDIRECTED PRN PRN Reason: Keep Vein Open Sodium Chloride (Saline Flush) 2.5 ml FLUSH ASDIRECTED PRN PRN Reason: Keep Vein Open Discontinued Medications Aspirin (Aspirin) 324 mg PO ONETIME ONE Stop: 04/05/18 16:17 Last Admin: 04/05/18 16:25 Dose: 324 mg Furosemide (Lasix) 40 mg IVPUSH NOW ONE Stop: 04/05/18 16:16 Last Admin: 04/05/18 16:26 Dose: 40 mg Furosemide (Lasix) 40 mg IVPUSH NOW ONE Stop: 04/05/18 22:01 Last Admin: 04/05/18 22:25 Dose: 40 mg Magnesium Sulfate 2 gm/ Premix 50 mls @ 50 mls/hr IV ONETIME ONE Stop: 04/05/18 19:16 Last Admin: 04/05/18 18:55 Dose: 50 mls/hr Potassium Chloride (Klor-Con M20) 80 meq PO ONETIME ONE Stop: 04/05/18 17:40 Last Admin: 04/05/18 18:24 Dose: 80 meq Potassium Chloride (Klor-Con M20) 40 meq PO ONETIME ONE Stop: 04/05/18 21:01 Last Admin: 04/05/18 20:15 Dose: 40 meq - Exam General: Alert, Oriented, Cooperative Lungs: Clear to Auscultation, Normal Respiratory Effort Cardiovascular: Irregular Rhythm GI/Abdominal Exam: Normal Bowel Sounds, Soft, Non-Tender, No Distention Extremities: Pedal Edema (improved) Skin: Warm, Dry Neurological: No New Focal Deficit Psy/Mental Status: Alert, Normal Affect, Normal Mood - Problem List Review Problem List Initiated/Reviewed/Updated: Yes - My Orders Last 24 Hours: My Active Orders 04/05/18 18:17 Intake and Output Strict [RC] Q12H Vital Signs [RC] Q4H Morphine 2 mg IVPUSH Q2H PRN Nitroglycerin [Nitrostat] 0.4 mg SL Q5M PRN Resuscitation Status Routine 04/05/18 19:46 Naproxen Sodium 220 mg PO BID PRN 04/05/18 20:00 Pantoprazole [ProTONIX IV] 40 mg IVPUSH Q24H 04/05/18 21:00 Latanoprost [Xalatan 0.005% Ophth Soln] 0 ml EYERT BEDTIME Nitrofurantoin [place]/Macrocryst [Macrobid] 100 mg PO BID 04/05/18 22:00 Gabapentin [Neurontin] 300 mg PO TID diphenhydrAMINE [Benadryl] 50 mg PO TID rOPINIRole [Requip] 3 mg PO TID 04/06/18 Venous Doppler Lwr Ext Bi [US] Routine 04/06/18 08:09 Ondansetron [Zofran] 4 mg IVPUSH Q4H PRN 04/06/18 08:20 TROPONIN I [CHEM] Routine 04/06/18 09:00 Metoprolol Succinate [Toprol XL] 100 mg PO DAILY Potassium Chloride [Klor-Con M20] 40 meq PO ONETIME ONE 04/06/18 Breakfast Heart Healthy Diet [DIET] 04/07/18 05:11 INR,PT,PROTHROMBIN TIME [COAG] AM MAGNESIUM [CHEM] AM - Plan Plan:: 1. Chest [id number]- troponins negative x 3, and no episodes of chest pain, continue telemetry, morphine and nitro as needed for chest pain 2. Bilateral lower extremity edema likely related to CHF- improved with lasix, denies SOB. DVT ruled out with US. Will give additional dose of lasix after unit of blood today. 3. Anemia s/p 2 units of PRBCs with positive hemoccult and hemorrhoids. Patient continues to deny any blood in stool or melena. Continue on PPI. Will give additional unit of blood today. Will start ferrous sulfate today. 4. NISREEN- improved -monitor, no fluids due to CHF 5. UTI- UC pending, antibiotics switched to Levaquin due to fever, chills, and elevated WBC. Lactic acid was within normal limits. Blood cultures ordered. 6. Hypokalemia- improved but still low, will give an additional 40 mEq 7. Hypomagnesemia- resolved
[2018-04-06] MEDS ORDERED: Potassium Chloride 20 MEQ Tab.ER PO ONE (09:00)
[2018-04-06] MEDS: Metoprolol Succinate 100 MG Tab.ER PO SCH (09:13)
[2018-04-06] MEDS: Nitrofurantoin Monohydrate/Macrocrystalline 100 MG Cap PO SCH (09:14)
[2018-04-06] MEDS: Morphine 2 MG/ML Syringe IVPUSH PRN ×2 (09:18→20:37)
--- NOTE | 2018-04-06 09:35 | US ---
ULTRASOUND EXAMINATION OF the bilateral lower extremities WITH DOPPLER HISTORY: Edema FINDINGS: Examination of left and right legs were performed from the groin to the calf region. All visualized segments including common femoral, proximal greater saphenous, superficial femoral, popliteal and jose f veins appear patent with good compressibility and augmentation. There is no evidence of a deep vei n thrombosis. IMPRESSION: No evidence of a DVT.
[2018-04-06] MEDS: Levofloxacin/Dextrose 5%-Water 750 MG in Premix Bag 1 BAG IV SCH (12:10)
[2018-04-06] MEDS: Acetaminophen 500 MG Tab PO PRN (12:44)
[2018-04-06] MEDS: Ferrous Sulfate 325 MG Tab PO SCH (17:59)
[2018-04-06] MEDS: Furosemide 40 MG/4 ML VIAL IVPUSH ONE ×2 (18:10→20:57)
--- NOTE | 2018-04-06 18:48 | US ---
EXAM DATE: 04/05/18 PATIENT'S AGE: 72 Patient: KATYA DAILEY Facility: [place], [place] Site . Site : 1945 Study: XRay Chest [id number]/[id number] 5:06:47 PM Ordering Physician: Barrett Giron Final Report: INDICATION: Chest Pain, shortness of breath TECHNIQUE: Chest radiograph 1 view COMPARISON: None FINDINGS: Moderate degradation of image quality noted due to body habitus. Mediastinum: The mediastinum is normal in appearance. The heart silhouette is normal in size and morphology. Lung: Mild bibasilar subsegmental atelectasis is noted. A punctate granuloma is noted in the lateral right lung base. No sign of pleural effusion seen. No pneumothorax is identified. Musculoskeletal: Bilateral shoulder arthroplasties noted. IMPRESSION: 1. Mild bibasilar subsegmental atelectasis is noted. Dictated by: Yordy Tinsley MD @ 04/05/2018 17:21:32 (Electronic Signature) Report Signed by Proxy. [facility]
[2018-04-06] MEDS: Pantoprazole 40 MG Vial IVPUSH SCH (20:36)
[2018-04-06] MEDS: Latanoprost 0.005% Ophth Soln 2.5 ML Bottle EYERT SCH (21:32)
[2018-04-07] MEDS: Acetaminophen 500 MG Tab PO PRN ×2 (03:35→15:01)
[2018-04-07] MEDS: Morphine 2 MG/ML Syringe IVPUSH PRN ×3 (04:34→13:05)
[2018-04-07] MEDS: rOPINIRole 1 MG Tab PO SCH ×3 (05:54→21:04)
[2018-04-07] MEDS: diphenhydrAMINE 50 MG Cap PO SCH ×3 (05:54→21:03)
[2018-04-07] MEDS: Gabapentin 300 MG Cap PO SCH ×3 (05:54→21:04)
--- NOTE | 2018-04-07 08:15 | PCM.PN ---
- General Info Date of Service: 04/07/18 Subjective Update: The patient is a 72 year old female originally admitted for chest pain, anemia, and CHF. The patient has been chest pain free since admission. She received another unit of blood yesterday, totaling 3 since admission. Yesterday she was experiencing fever and shaking chills, so her antibiotics were switched to Levaquin, blood cultures were drawn and are pending, and a lactate was done which was not elevated. She reports the shaking chills have resolved. She did have a fever of 100.8 which resolved with Tylenol. She was placed on oxygen last night when her O2 dropped down to 86%. This morning she denied shortness of breath, and was trialed on RA and was satting at 92%. The edema in her legs has improved, they are less painful and the patient is able to move them at this point. She has not been ambulatory since admission. She says she has a wheelchair at home when she can't walk. She want to go home today because she is scheduled to go on a trip to [place] on . She is considering leaving [place]. - Review of Systems General: Reports: Fever, Weakness HEENT: Reports: No Symptoms Pulmonary: Reports: No Symptoms Cardiovascular: Reports: Edema. Denies: Chest Pain Gastrointestinal: Reports: No Symptoms Genitourinary: Reports: No Symptoms Musculoskeletal: Reports: Leg Pain Skin: Reports: No Symptoms Neurological: Reports: No Symptoms Psychiatric: Reports: No Symptoms - Patient Data Vitals - Most Recent: Last Vital Signs Temp 98.6 F 04/07/18 04:39 Pulse 110 H 04/07/18 03:00 Resp 16 04/07/18 03:00 BP 116/62 04/07/18 03:00 Pulse Ox 93 L 04/07/18 05:15 Weight - Most Recent: 142.428 kg I&O - Last 24 Hours: Intake & Output 04/06/18 04/07/18 04/07/18 22:59 06:59 14:59 Intake Total 1706 500 Output Total 1300 2000 Balance 406 -1500 Lab Results Last 24 Hours: Laboratory Results - last 24 hr 04/05/18 04/06/18 04/06/18 Range/Units 16:42 03:35 08:20 WBC (4.0-11.0) K/uL RBC (4.30-5.90) M/uL Hgb (12.0-16.0) g/dL Hct (36.0-46.0) % MCV (80.0-98.0) fL MCH (27.0-32.0) pg MCHC (31.0-37.0) g/dL RDW Std Deviation (28.0-62.0) fl RDW Coeff of Radha (11.0-15.0) % Plt Count (150-400) K/uL MPV (7.40-12.00) fL Neut % (Auto) (48.0-80.0) % Lymph % (Auto) (16.0-40.0) % [place] % (Auto) (0.0-15.0) % Eos % (Auto) (0.0-7.0) % Baso % (Auto) (0.0-1.5) % Neut # (Auto) (1.4-5.7) K/uL Lymph # (Auto) (0.6-2.4) K/uL [place] # (Auto) (0.0-0.8) K/uL Eos # (Auto) (0.0-0.7) K/uL Baso # (Auto) (0.0-0.1) K/uL Nucleated RBC % /100WBC Nucleated RBCs # K/uL INR Lactate (0.20-2.00) mmol/L Sodium (136-145) mmol/L Potassium (3.5-5.1) mmol/L Chloride (98-107) mmol/L Carbon Dioxide (21.0-32.0) mmol/L BUN (7.0-18.0) mg/dL Creatinine (0.6-1.0) mg/dL Est Cr Clr Drug Dosing mL/min Estimated GFR (MDRD) ml/min Glucose (74-106) mg/dL Calcium (8.5-10.1) mg/dL Magnesium (1.8-2.4) mg/dL Total Bilirubin (0.2-1.0) mg/dL AST (15-37) IU/L ALT (14-63) IU/L Alkaline Phosphatase (46-116) U/L Troponin I < 0.050 (0.000-0.056) ng/mL Total Protein (6.4-8.2) g/dL Albumin (3.4-5.0) g/dL Globulin (2.0-3.5) g/dL Albumin/Globulin Ratio (1.3-2.8) Crossmatch See Detail See Detail Tx Rx Implicated Unit 1 [id number] Unit 1 Component RBC Pre-Trans Vis Hemolysis NEGATIVE Pre-Trans Icterus NEGATIVE Post-Trans Blood Type A POSITIVE Post-Tx Visible Hemolys NEGATIVE Post-Trans Icterus NEGATIVE Post-Trans ALVARO Poly NEGATIVE Reaction Interpretation NON-HEM TRANSF RX 04/06/18 04/06/18 04/06/18 Range/Units 08:20 09:07 12:00 WBC (4.0-11.0) K/uL RBC (4.30-5.90) M/uL Hgb (12.0-16.0) g/dL Hct (36.0-46.0) % MCV (80.0-98.0) fL MCH (27.0-32.0) pg MCHC (31.0-37.0) g/dL RDW Std Deviation (28.0-62.0) fl RDW Coeff of Radha (11.0-15.0) % Plt Count (150-400) K/uL MPV (7.40-12.00) fL Neut % (Auto) (48.0-80.0) % Lymph % (Auto) (16.0-40.0) % [place] % (Auto) (0.0-15.0) % Eos % (Auto) (0.0-7.0) % Baso % (Auto) (0.0-1.5) % Neut # (Auto) (1.4-5.7) K/uL Lymph # (Auto) (0.6-2.4) K/uL [place] # (Auto) (0.0-0.8) K/uL Eos # (Auto) (0.0-0.7) K/uL Baso # (Auto) (0.0-0.1) K/uL Nucleated RBC % /100WBC Nucleated RBCs # K/uL INR 1.13 Lactate 1.0 (0.20-2.00) mmol/L Sodium (136-145) mmol/L Potassium (3.5-5.1) mmol/L Chloride (98-107) mmol/L Carbon Dioxide (21.0-32.0) mmol/L BUN (7.0-18.0) mg/dL Creatinine (0.6-1.0) mg/dL Est Cr Clr Drug Dosing mL/min Estimated GFR (MDRD) ml/min Glucose (74-106) mg/dL Calcium (8.5-10.1) mg/dL Magnesium 1.8 (1.8-2.4) mg/dL Total Bilirubin (0.2-1.0) mg/dL AST (15-37) IU/L ALT (14-63) IU/L Alkaline Phosphatase (46-116) U/L Troponin I (0.000-0.056) ng/mL Total Protein (6.4-8.2) g/dL Albumin (3.4-5.0) g/dL Globulin (2.0-3.5) g/dL Albumin/Globulin Ratio (1.3-2.8) Crossmatch Tx Rx Implicated Unit 1 Unit 1 Component Pre-Trans Vis Hemolysis Pre-Trans Icterus Post-Trans Blood Type Post-Tx Visible Hemolys Post-Trans Icterus Post-Trans ALVARO Poly Reaction Interpretation 04/06/18 04/07/18 04/07/18 Range/Units 12:15 05:05 05:05 WBC 14.55 H (4.0-11.0) K/uL RBC 3.69 L (4.30-5.90) M/uL Hgb 9.3 L 9.1 L (12.0-16.0) g/dL Hct 29.7 L 29.8 L (36.0-46.0) % MCV 80.8 (80.0-98.0) fL MCH 24.7 L (27.0-32.0) pg MCHC 30.5 L (31.0-37.0) g/dL RDW Std Deviation 44.9 (28.0-62.0) fl RDW Coeff of Radha 15 (11.0-15.0) % Plt Count 239 (150-400) K/uL MPV 9.60 (7.40-12.00) fL Neut % (Auto) 77.7 (48.0-80.0) % Lymph % (Auto) 11.6 L (16.0-40.0) % [place] % (Auto) 10.5 (0.0-15.0) % Eos % (Auto) 0.0 (0.0-7.0) % Baso % (Auto) 0.2 (0.0-1.5) % Neut # (Auto) 11.3 H (1.4-5.7) K/uL Lymph # (Auto) 1.7 (0.6-2.4) K/uL [place] # (Auto) 1.5 H (0.0-0.8) K/uL Eos # (Auto) 0.0 (0.0-0.7) K/uL Baso # (Auto) 0.0 (0.0-0.1) K/uL Nucleated RBC % 0.0 /100WBC Nucleated RBCs # 0 K/uL INR 1.23 Lactate (0.20-2.00) mmol/L Sodium (136-145) mmol/L Potassium (3.5-5.1) mmol/L Chloride (98-107) mmol/L Carbon Dioxide (21.0-32.0) mmol/L BUN (7.0-18.0) mg/dL Creatinine (0.6-1.0) mg/dL Est Cr Clr Drug Dosing mL/min Estimated GFR (MDRD) ml/min Glucose (74-106) mg/dL Calcium (8.5-10.1) mg/dL Magnesium (1.8-2.4) mg/dL Total Bilirubin (0.2-1.0) mg/dL AST (15-37) IU/L ALT (14-63) IU/L Alkaline Phosphatase (46-116) U/L Troponin I (0.000-0.056) ng/mL Total Protein (6.4-8.2) g/dL Albumin (3.4-5.0) g/dL Globulin (2.0-3.5) g/dL Albumin/Globulin Ratio (1.3-2.8) Crossmatch Tx Rx Implicated Unit 1 Unit 1 Component Pre-Trans Vis Hemolysis Pre-Trans Icterus Post-Trans Blood Type Post-Tx Visible Hemolys Post-Trans Icterus Post-Trans ALVARO Poly Reaction Interpretation 04/07/18 Range/Units 05:05 WBC (4.0-11.0) K/uL RBC (4.30-5.90) M/uL Hgb (12.0-16.0) g/dL Hct (36.0-46.0) % MCV (80.0-98.0) fL MCH (27.0-32.0) pg MCHC (31.0-37.0) g/dL RDW Std Deviation (28.0-62.0) fl RDW Coeff of Radha (11.0-15.0) % Plt Count (150-400) K/uL MPV (7.40-12.00) fL Neut % (Auto) (48.0-80.0) % Lymph % (Auto) (16.0-40.0) % [place] % (Auto) (0.0-15.0) % Eos % (Auto) (0.0-7.0) % Baso % (Auto) (0.0-1.5) % Neut # (Auto) (1.4-5.7) K/uL Lymph # (Auto) (0.6-2.4) K/uL [place] # (Auto) (0.0-0.8) K/uL Eos # (Auto) (0.0-0.7) K/uL Baso # (Auto) (0.0-0.1) K/uL Nucleated RBC % /100WBC Nucleated RBCs # K/uL INR Lactate (0.20-2.00) mmol/L Sodium 136 (136-145) mmol/L Potassium 3.6 (3.5-5.1) mmol/L Chloride 96 L (98-107) mmol/L Carbon Dioxide 36.9 H (21.0-32.0) mmol/L BUN 25 H (7.0-18.0) mg/dL Creatinine 1.5 H (0.6-1.0) mg/dL Est Cr Clr Drug Dosing 35.20 mL/min Estimated GFR (MDRD) 34.3 ml/min Glucose 136 H (74-106) mg/dL Calcium 8.6 (8.5-10.1) mg/dL Magnesium (1.8-2.4) mg/dL Total Bilirubin 1.9 H (0.2-1.0) mg/dL AST 25 (15-37) IU/L ALT 19 (14-63) IU/L Alkaline Phosphatase 84 (46-116) U/L Troponin I (0.000-0.056) ng/mL Total Protein 7.4 (6.4-8.2) g/dL Albumin 2.9 L (3.4-5.0) g/dL Globulin 4.5 H (2.0-3.5) g/dL Albumin/Globulin Ratio 0.6 L (1.3-2.8) Crossmatch Tx Rx Implicated Unit 1 Unit 1 Component Pre-Trans Vis Hemolysis Pre-Trans Icterus Post-Trans Blood Type Post-Tx Visible Hemolys Post-Trans Icterus Post-Trans ALVARO Poly Reaction Interpretation Tye Results Last 24 Hours: Microbiology 04/05/18 16:55 Urine Culture - Final Urine, Clean Catch Escherichia Coli Med Orders - Current: Current Medications Acetaminophen (Tylenol Extra Strength) 500 mg PO Q6H PRN PRN Reason: Pain Last Admin: 04/07/18 03:35 Dose: 500 mg Diphenhydramine HCl (Benadryl) 50 mg PO TID [facility] Last Admin: 04/07/18 05:54 Dose: 50 mg Ferrous Sulfate (Ferrous Sulfate) 325 mg PO BIDMEALS [facility] Last Admin: 04/06/18 17:59 Dose: 325 mg Gabapentin (Neurontin) 300 mg PO TID [facility] Last Admin: 04/07/18 05:54 Dose: 300 mg Levofloxacin/Dextrose 750 mg/ (Premix) 150 mls @ 100 mls/hr IV Q48H [facility] Last Admin: 04/06/18 12:10 Dose: 100 mls/hr Latanoprost (Xalatan 0.005% Ophth Soln) 0 ml EYERT BEDTIME [facility] Last Admin: 04/06/18 21:32 Dose: 1 drop Metoprolol Succinate (Toprol Xl) 100 mg PO DAILY [facility] Last Admin: 04/06/18 09:13 Dose: 100 mg Morphine Sulfate (Morphine) 2 mg IVPUSH Q2H PRN PRN Reason: Chest Pain Last Admin: 04/07/18 04:34 Dose: 2 mg Nitroglycerin (Nitrostat) 0.4 mg SL Q5M PRN PRN Reason: Chest Pain Ondansetron HCl (Zofran) 4 mg IVPUSH Q4H PRN PRN Reason: Nausea/Vomiting Pantoprazole Sodium (Protonix Iv) 40 mg IVPUSH Q24H [facility] Last Admin: 04/06/18 20:36 Dose: 40 mg Ropinirole HCl (Requip) 3 mg PO TID [facility] Last Admin: 04/07/18 05:54 Dose: 3 mg Sodium Chloride (Saline Flush) 10 ml FLUSH ASDIRECTED PRN PRN Reason: Keep Vein Open Sodium Chloride (Saline Flush) 2.5 ml FLUSH ASDIRECTED PRN PRN Reason: Keep Vein Open Discontinued Medications Aspirin (Aspirin) 324 mg PO ONETIME ONE Stop: 04/05/18 16:17 Last Admin: 04/05/18 16:25 Dose: 324 mg Furosemide (Lasix) 40 mg IVPUSH NOW ONE Stop: 04/05/18 16:16 Last Admin: 04/05/18 16:26 Dose: 40 mg Furosemide (Lasix) 40 mg IVPUSH NOW ONE Stop: 04/05/18 22:01 Last Admin: 04/05/18 22:25 Dose: 40 mg Furosemide (Lasix) 40 mg IVPUSH NOW ONE Stop: 04/06/18 16:01 Last Admin: 04/06/18 20:57 Dose: Not Given Magnesium Sulfate 2 gm/ Premix 50 mls @ 50 mls/hr IV ONETIME ONE Stop: 04/05/18 19:16 Last Admin: 04/05/18 18:55 Dose: 50 mls/hr Naproxen (Naproxen Sodium) 220 mg PO BID PRN PRN Reason: Pain Nitrofurantoin Macrocrystals (Macrobid) 100 mg PO BID [facility] Last Admin: 04/06/18 09:14 Dose: 100 mg Potassium Chloride (Klor-Con M20) 80 meq PO ONETIME ONE Stop: 04/05/18 17:40 Last Admin: 04/05/18 18:24 Dose: 80 meq Potassium Chloride (Klor-Con M20) 40 meq PO ONETIME ONE Stop: 04/05/18 21:01 Last Admin: 04/05/18 20:15 Dose: 40 meq Potassium Chloride (Klor-Con M20) 40 meq PO ONETIME ONE Stop: 04/06/18 09:01 Last Admin: 04/06/18 09:14 Dose: 40 meq - Exam General: Alert, Oriented, Cooperative Cardiovascular: Irregular Rhythm GI/Abdominal Exam: Normal Bowel Sounds, Soft, Non-Tender Extremities: Pedal Edema (improved) Skin: Warm, Dry Neurological: No New Focal Deficit Psy/Mental Status: Alert, Normal Affect, Normal Mood - Problem List Review Problem List Initiated/Reviewed/Updated: Yes - My Orders Last 24 Hours: My Active Orders 04/06/18 08:09 Ondansetron [Zofran] 4 mg IVPUSH Q4H PRN 04/06/18 09:00 Metoprolol Succinate [Toprol XL] 100 mg PO DAILY 04/06/18 10:31 Acetaminophen [Tylenol Extra Strength] 500 mg PO Q6H PRN 04/06/18 17:00 Ferrous Sulfate 325 mg PO BIDMEALS - Plan Plan:: Patient willing to stay one more night. Her trip to [facility] is on . 1. Chest eanf-orooaqvvkv-zdseueiq- troponins negative x 3, and no episodes of chest pain, continue telemetry, morphine and nitro as needed for chest pain 2. Bilateral lower extremity edema likely related to CHF- improved with lasix is able to lift legs now, denies SOB. DVT ruled out with US. She is not ambulating so PT consult was placed. 3. Anemia s/p 3 units of PRBCs with positive hemoccult and hemorrhoids. Hemoglobin went from 9.3 before additional unit of blood given to 9.1 post unit. We will recheck a hemoglobin this afternoon. Continue on PPI BID. Will Continue ferrous sulfate. [place] records only showed hemorrhoids on colonoscopy , no EGD was done at the time. 4. NISREEN- her BUN is stable but Cr is slightly worse at 1.5 -monitor, no fluids due to CHF 5. UTI growing Ecoli, pansensitive- continue Levaquin. Meghann's white count is up from 11 to 14.55 with fever overnight. Lactic acid was within normal limits. Blood cultures pending 6. Hypokalemia- resolved 7. Hypomagnesemia- resolved
[2018-04-07] MEDS: Metoprolol Succinate 100 MG Tab.ER PO SCH (08:54)
[2018-04-07] MEDS: Ferrous Sulfate 325 MG Tab PO SCH ×2 (08:55→16:24)
[2018-04-07] MEDS: Pantoprazole 40 MG Vial IVPUSH SCH (11:18)
[2018-04-07] MEDS: Latanoprost 0.005% Ophth Soln 2.5 ML Bottle EYERT SCH (21:00)
[2018-04-08] MEDS: Acetaminophen 500 MG Tab PO PRN ×4 (00:38→23:29)
[2018-04-08] MEDS: Pantoprazole 40 MG Vial IVPUSH SCH ×3 (01:00→22:50)
[2018-04-08] MEDS: Gabapentin 300 MG Cap PO SCH ×3 (05:42→21:11)
[2018-04-08] MEDS: diphenhydrAMINE 50 MG Cap PO SCH ×3 (05:42→21:10)
[2018-04-08] MEDS: rOPINIRole 1 MG Tab PO SCH ×3 (05:43→21:11)
--- NOTE | 2018-04-08 08:23 | PCM.PN ---
- General Info Date of Service: 04/08/18 Subjective Update: The patient is a 72 year old female who is here for anemia, CHF, NISREEN, and UTI. She was transfused another unit last night and her hemoglobin increased from 8.7 to 9.7. She denies bright red blood per rectum currently but she has not had a bowel movement in the last day so she is unsure if she has melena. Patient does have a history of Afib and yesterday she was having some tachycardia in the 110s but overnight she was rate controlled in the 90s. She has been on/off oxygen throughout her stay, she usually gets short of breath with any exertion. At rest she does not have shortness of breath, she denies chest pain or abdominal pain. - Review of Systems General: Reports: No Symptoms HEENT: Reports: No Symptoms Pulmonary: Reports: No Symptoms Cardiovascular: Reports: No Symptoms Gastrointestinal: Reports: No Symptoms Genitourinary: Reports: No Symptoms Musculoskeletal: Reports: Foot Pain Skin: Reports: No Symptoms Neurological: Reports: No Symptoms Psychiatric: Reports: No Symptoms - Patient Data Vitals - Most Recent: Last Vital Signs Temp 98.9 F 04/08/18 05:00 Pulse 96 04/08/18 05:00 Resp 18 04/08/18 05:00 BP 121/63 04/08/18 05:00 Pulse Ox 96 04/08/18 05:00 Weight - Most Recent: 143.335 kg I&O - Last 24 Hours: Intake & Output 04/07/18 04/08/18 04/08/18 22:59 06:59 14:59 Intake Total 653 587 Output Total 650 500 Balance 3 87 Lab Results Last 24 Hours: Laboratory Results - last 24 hr 04/05/18 04/06/18 04/07/18 Range/Units 16:42 03:35 17:09 WBC (4.0-11.0) K/uL RBC (4.30-5.90) M/uL Hgb 8.7 L (12.0-16.0) g/dL Hct 27.9 L (36.0-46.0) % MCV (80.0-98.0) fL MCH (27.0-32.0) pg MCHC (31.0-37.0) g/dL RDW Std Deviation (28.0-62.0) fl RDW Coeff of Radha (11.0-15.0) % Plt Count (150-400) K/uL MPV (7.40-12.00) fL Neut % (Auto) (48.0-80.0) % Lymph % (Auto) (16.0-40.0) % [place] % (Auto) (0.0-15.0) % Eos % (Auto) (0.0-7.0) % Baso % (Auto) (0.0-1.5) % Neut # (Auto) (1.4-5.7) K/uL Lymph # (Auto) (0.6-2.4) K/uL [place] # (Auto) (0.0-0.8) K/uL Eos # (Auto) (0.0-0.7) K/uL Baso # (Auto) (0.0-0.1) K/uL Nucleated RBC % /100WBC Nucleated RBCs # K/uL Sodium (136-145) mmol/L Potassium (3.5-5.1) mmol/L Chloride (98-107) mmol/L Carbon Dioxide (21.0-32.0) mmol/L BUN (7.0-18.0) mg/dL Creatinine (0.6-1.0) mg/dL Est Cr Clr Drug Dosing mL/min Estimated GFR (MDRD) ml/min Glucose (74-106) mg/dL Calcium (8.5-10.1) mg/dL Crossmatch See Detail See Detail 04/08/18 04/08/18 Range/Units 05:00 05:00 WBC 14.36 H (4.0-11.0) K/uL RBC 3.89 L (4.30-5.90) M/uL Hgb 9.7 L (12.0-16.0) g/dL Hct 31.7 L (36.0-46.0) % MCV 81.5 (80.0-98.0) fL MCH 24.9 L (27.0-32.0) pg MCHC 30.6 L (31.0-37.0) g/dL RDW Std Deviation 46.1 (28.0-62.0) fl RDW Coeff of Radha 16 H (11.0-15.0) % Plt Count 251 (150-400) K/uL MPV 10.00 (7.40-12.00) fL Neut % (Auto) 80.9 H (48.0-80.0) % Lymph % (Auto) 10.7 L (16.0-40.0) % [place] % (Auto) 8.2 (0.0-15.0) % Eos % (Auto) 0.1 (0.0-7.0) % Baso % (Auto) 0.1 (0.0-1.5) % Neut # (Auto) 11.6 H (1.4-5.7) K/uL Lymph # (Auto) 1.5 (0.6-2.4) K/uL [place] # (Auto) 1.2 H (0.0-0.8) K/uL Eos # (Auto) 0.0 (0.0-0.7) K/uL Baso # (Auto) 0.0 (0.0-0.1) K/uL Nucleated RBC % 0.0 /100WBC Nucleated RBCs # 0 K/uL Sodium 133 L (136-145) mmol/L Potassium 3.6 (3.5-5.1) mmol/L Chloride 94 L (98-107) mmol/L Carbon Dioxide 33.7 H (21.0-32.0) mmol/L BUN 29 H (7.0-18.0) mg/dL Creatinine 1.6 H (0.6-1.0) mg/dL Est Cr Clr Drug Dosing 33.00 mL/min Estimated GFR (MDRD) 31.9 ml/min Glucose 142 H (74-106) mg/dL Calcium 9.0 (8.5-10.1) mg/dL Crossmatch Tye Results Last 24 Hours: Microbiology 04/06/18 12:00 Aerobic Blood Culture - Preliminary Blood - Venous - Lab Draw NO GROWTH AFTER 1 DAY Anaerobic Blood Culture - Preliminary NO GROWTH AFTER 1 DAY 04/06/18 12:00 Aerobic Blood Culture - Preliminary Blood - Venous NO GROWTH AFTER 1 DAY Anaerobic Blood Culture - Preliminary NO GROWTH AFTER 1 DAY 04/05/18 16:55 Urine Culture - Final Urine, Clean Catch Escherichia Coli Med Orders - Current: Current Medications Acetaminophen (Tylenol Extra Strength) 500 mg PO Q6H PRN PRN Reason: Pain Last Admin: 04/08/18 06:52 Dose: 500 mg Diphenhydramine HCl (Benadryl) 50 mg PO TID [facility] Last Admin: 04/08/18 05:42 Dose: 50 mg Ferrous Sulfate (Ferrous Sulfate) 325 mg PO BIDMEALS [facility] Last Admin: 04/07/18 16:24 Dose: 325 mg Gabapentin (Neurontin) 300 mg PO TID [facility] Last Admin: 04/08/18 05:42 Dose: 300 mg Levofloxacin/Dextrose 750 mg/ (Premix) 150 mls @ 100 mls/hr IV Q48H [facility] Last Admin: 04/06/18 12:10 Dose: 100 mls/hr Latanoprost (Xalatan 0.005% Ophth Soln) 0 ml EYERT BEDTIME [facility] Last Admin: 04/07/18 21:00 Dose: 1 drop Metoprolol Succinate (Toprol Xl) 100 mg PO DAILY [facility] Last Admin: 04/07/18 08:54 Dose: 100 mg Morphine Sulfate (Morphine) 2 mg IVPUSH Q2H PRN PRN Reason: Chest Pain Last Admin: 04/07/18 13:05 Dose: 2 mg Nitroglycerin (Nitrostat) 0.4 mg SL Q5M PRN PRN Reason: Chest Pain Ondansetron HCl (Zofran) 4 mg IVPUSH Q4H PRN PRN Reason: Nausea/Vomiting Pantoprazole Sodium (Protonix Iv) 40 mg IVPUSH Q12H [facility] Last Admin: 04/08/18 01:00 Dose: 40 mg Ropinirole HCl (Requip) 3 mg PO TID [facility] Last Admin: 04/08/18 05:43 Dose: Not Given Sodium Chloride (Saline Flush) 10 ml FLUSH ASDIRECTED PRN PRN Reason: Keep Vein Open Sodium Chloride (Saline Flush) 2.5 ml FLUSH ASDIRECTED PRN PRN Reason: Keep Vein Open Discontinued Medications Aspirin (Aspirin) 324 mg PO ONETIME ONE Stop: 04/05/18 16:17 Last Admin: 04/05/18 16:25 Dose: 324 mg Furosemide (Lasix) 40 mg IVPUSH NOW ONE Stop: 04/05/18 16:16 Last Admin: 04/05/18 16:26 Dose: 40 mg Furosemide (Lasix) 40 mg IVPUSH NOW ONE Stop: 04/05/18 22:01 Last Admin: 04/05/18 22:25 Dose: 40 mg Furosemide (Lasix) 40 mg IVPUSH NOW ONE Stop: 04/06/18 16:01 Last Admin: 04/06/18 20:57 Dose: Not Given Magnesium Sulfate 2 gm/ Premix 50 mls @ 50 mls/hr IV ONETIME ONE Stop: 04/05/18 19:16 Last Admin: 04/05/18 18:55 Dose: 50 mls/hr Naproxen (Naproxen Sodium) 220 mg PO BID PRN PRN Reason: Pain Nitrofurantoin Macrocrystals (Macrobid) 100 mg PO BID [facility] Last Admin: 04/06/18 09:14 Dose: 100 mg Pantoprazole Sodium (Protonix Iv) 40 mg IVPUSH Q24H [facility] Last Admin: 04/06/18 20:36 Dose: 40 mg Potassium Chloride (Klor-Con M20) 80 meq PO ONETIME ONE Stop: 04/05/18 17:40 Last Admin: 04/05/18 18:24 Dose: 80 meq Potassium Chloride (Klor-Con M20) 40 meq PO ONETIME ONE Stop: 04/05/18 21:01 Last Admin: 04/05/18 20:15 Dose: 40 meq Potassium Chloride (Klor-Con M20) 40 meq PO ONETIME ONE Stop: 04/06/18 09:01 Last Admin: 04/06/18 09:14 Dose: 40 meq - Exam General: Alert, Oriented, Cooperative Lungs: Clear to Auscultation, Normal Respiratory Effort Cardiovascular: Irregular Rhythm GI/Abdominal Exam: Normal Bowel Sounds, Soft, Non-Tender Extremities: Pedal Edema Skin: Warm, Dry, Ecchymosis (left upper extremity) Neurological: No New Focal Deficit Psy/Mental Status: Alert, Normal Affect, Normal Mood - Problem List Review Problem List Initiated/Reviewed/Updated: Yes - My Orders Last 24 Hours: My Active Orders 04/07/18 09:01 Consult to Physical Therapy [PT Evaluation and Treatment] [CONS] Routine 04/07/18 11:33 Admission Status [Patient Status] [ADT] Routine 04/07/18 18:44 Transfuse PRBC [Transfuse Red Blood Cells] [COMM] Per Unit Routine - Plan Plan:: 1. Chest amlb-likxukqvzg-qydbbwjj- troponins negative x 3, and no episodes of chest pain, continue telemetry, morphine and nitro as needed for chest pain 2. Bilateral lower extremity edema likely related to CHF- improved. She has not been ambulating, she was ambulatory to a degree at home before admission. PT consulted and working with her. 3. Anemia s/p 4 units of PRBCs with positive hemoccult and hemorrhoids. She received an additional unit of blood last night with increase in hemoglobin from 8.7 to 9.7. Continue on PPI BID. Will Continue ferrous sulfate. [place] records only showed hemorrhoids on colonoscopy, no EGD was done at the time. Dr. Naidu of general surgery has been consulted and will see patient later today. 4. NISREEN- slightly worse, BUN from 25 to 29 and Cr from 1.5 to 1.6 -monitor, no fluids due to CHF 5. UTI growing Ecoli, pansensitive- continue Levaquin q48. Paitent's white count is stable with no fever overnight. Blood cultures pending. Will get CT ab/ pelvis w/o contrast to look for any intra-abdominal infection 6. Afib- rate controlled, currently holding warfarin for possible GI bleed.
[2018-04-08] MEDS: Ferrous Sulfate 325 MG Tab PO SCH ×2 (09:16→16:15)
[2018-04-08] MEDS: Metoprolol Succinate 100 MG Tab.ER PO SCH (09:17)
[2018-04-08] MEDS: Morphine 2 MG/ML Syringe IVPUSH PRN ×2 (11:19→13:21)
[2018-04-08] MEDS: Nystatin Topical Powder 15 GM Bottle TOP SCH ×2 (12:01→21:13)
[2018-04-08] MEDS: Sodium Chloride 0.9% 2.5 ML Syringe FLUSH PRN ×5 (12:04→13:22)
[2018-04-08] MEDS: Levofloxacin/Dextrose 5%-Water 750 MG in Premix Bag 1 BAG IV SCH (12:16)
--- NOTE | 2018-04-08 12:48 | CT ---
CT of the abdomen and pelvis without contrast. HISTORY: TECHNIQUE: Axial CT images were obtained of the abdomen and pelvis without contrast. Coronal and sagi ttal reconstructions obtained. FINDINGS: Mild interstitial prominence within the lung bases. Trace right pleural effusion. The liver, spleen, adrenal glands, and pancreas appear unremarkable for noncontrast examination. The gallbladder appears normal. There is no bulky retroperitoneal lymphadenopathy. No abdominal ascites. Mild generalized anasarca. 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 There are no calcifications noted within the kidneys or along the courses of the ureters bilaterally. Mild vascular calcifications are noted. Minimal left and mild to moderate right perirenal stranding. The large and small bowel are normal in caliber without evidence of obstruction. There is no bulky p elvic lymphadenopathy. No free fluid. No free air. There is a Pena catheter within the urinary bladd er. Degenerative changes noted within the lumbar spine. Hemangioma noted at T10. Grade 1 anterolisthesis of L4 on L5. IMPRESSION: 1. Mild to moderate right and minimal left perirenal stranding, underlying pyelonephritis is not excl uded. 2. No evidence of obstructive uropathy. 3. Mild generalized anasarca. 4. Trace right pleural effusion.
--- NOTE | 2018-04-08 15:04 | PCM.SN ---
- Free Text/Narrative Note: Pt seen, chart reviewed; pt denied hx of black tarry stool, BRBPR, hematemisis/ hemoptysis/hematuria, epigastric pain; physical exam, no abd pain; pt received 1 RBC yesterday, and h/h increased by 1 unit, from 8.7 to 9.7, no signs or symptoms of active bleeding; guaiac positive brown stool, mostly from micro bleeding from colon; and pt had a normal colonoscopy 6 days ago; pt is taking coumadin for afid, so there is a reason for anemia, although INR on admission was normal at 1.1; EGD is not indicated; colonoscopy was normal 6 days ago; agree with blood transfusion to top up to h/h > 10; strict i/o, pt would benefit from HemOnc consult; addition, pt BARRERA/SOB/chest pain/BMI of 48/CHF/ water retention, pt remarked she gain 40 lbs in couple weeks; cardiology clearance in anticipation of elective outpation endoscopy would be benefitial; will follow pt with you
[2018-04-08] MEDS: Latanoprost 0.005% Ophth Soln 2.5 ML Bottle EYERT SCH (21:14)
--- NOTE | 2018-04-09 00:46 | PCM.SN ---
- Free Text/Narrative Note: Called by nursing as they have been unable to obtain PIV access for blood administration. 18g PIV started to Rt AC, secured with tape and tegaderm. Draws and flushes with ease.
[2018-04-09] MEDS: rOPINIRole 1 MG Tab PO SCH ×2 (05:29→15:15)
[2018-04-09] MEDS: Gabapentin 300 MG Cap PO SCH ×2 (05:29→15:15)
[2018-04-09] MEDS: diphenhydrAMINE 50 MG Cap PO SCH ×2 (05:29→15:15)
--- NOTE | 2018-04-09 07:12 | PCM.PN ---
- General Info Date of Service: 04/09/18 Subjective Update: The patient is a 72 year-old female who is being worked up for her anemia. She is received a total of 5 units of blood since admission. Dr. Naidu was consulted yesterday who recommended keeping her hemoglobin above 10 and recommended outpatient EGD with cardiac clearance beforehand. Last night the patient received 1 unit of blood and her hemoglobin only increased from 9.3- 9.4. She continues to deny any bright red blood per rectum or black tarry stools. The patient also has some ambulatory dysfunction. PT is working with her. She noted that yesterday when she tried to stand on her feet, she felt like she was going to pass out. She states she can't walk. When asked how she is going to go home safely, she said that her daughter and grandson's girlfriend would take care of her, she is not open to the idea of possible swing bed at [facility]. She did spike a fever overnight to 101, was given Tylenol with resolution. This morning she reports she's eating, drinking, going to the bathroom without difficulty. She denies any chest pain, shortness of breath, or abdominal pain. Her only complaint is left foot pain. Yesterday she complained of bilateral feet pain, but her right one has improved. - Review of Systems General: Reports: Fever HEENT: Reports: No Symptoms Pulmonary: Reports: No Symptoms Cardiovascular: Reports: Edema. Denies: Chest Pain Gastrointestinal: Reports: No Symptoms Genitourinary: Reports: No Symptoms Musculoskeletal: Reports: Foot Pain (left) Neurological: Reports: No Symptoms Psychiatric: Reports: No Symptoms - Patient Data Vitals - Most Recent: Last Vital Signs Temp 97.3 F 04/09/18 05:00 Pulse 94 04/09/18 05:00 Resp 18 04/09/18 05:00 BP 112/73 04/09/18 05:00 Pulse Ox 95 04/09/18 05:00 Weight - Most Recent: 143.335 kg I&O - Last 24 Hours: Intake & Output 04/08/18 04/09/18 04/09/18 22:59 06:59 14:59 Intake Total 650 850 Output Total 750 500 Balance -100 350 Lab Results Last 24 Hours: Laboratory Results - last 24 hr 04/06/18 04/08/18 04/08/18 Range/Units 03:35 14:04 19:55 WBC (4.0-11.0) K/uL RBC (4.30-5.90) M/uL Hgb 9.3 L (12.0-16.0) g/dL Hct 30.4 L (36.0-46.0) % MCV (80.0-98.0) fL MCH (27.0-32.0) pg MCHC (31.0-37.0) g/dL RDW Std Deviation (28.0-62.0) fl RDW Coeff of Radha (11.0-15.0) % Plt Count (150-400) K/uL MPV (7.40-12.00) fL Neut % (Auto) (48.0-80.0) % Lymph % (Auto) (16.0-40.0) % [place] % (Auto) (0.0-15.0) % Eos % (Auto) (0.0-7.0) % Baso % (Auto) (0.0-1.5) % Neut # (Auto) (1.4-5.7) K/uL Lymph # (Auto) (0.6-2.4) K/uL [place] # (Auto) (0.0-0.8) K/uL Eos # (Auto) (0.0-0.7) K/uL Baso # (Auto) (0.0-0.1) K/uL Nucleated RBC % /100WBC Nucleated RBCs # K/uL Sodium (136-145) mmol/L Potassium (3.5-5.1) mmol/L Chloride (98-107) mmol/L Carbon Dioxide (21.0-32.0) mmol/L BUN (7.0-18.0) mg/dL Creatinine (0.6-1.0) mg/dL Est Cr Clr Drug Dosing mL/min Estimated GFR (MDRD) ml/min Glucose (74-106) mg/dL Calcium (8.5-10.1) mg/dL Blood Type A POSITIVE Antibody Screen NEGATIVE Crossmatch See Detail See Detail 04/09/18 04/09/18 Range/Units 05:37 05:37 WBC 12.58 H (4.0-11.0) K/uL RBC 3.72 L (4.30-5.90) M/uL Hgb 9.4 L (12.0-16.0) g/dL Hct 30.5 L (36.0-46.0) % MCV 82.0 (80.0-98.0) fL MCH 25.3 L (27.0-32.0) pg MCHC 30.8 L (31.0-37.0) g/dL RDW Std Deviation 46.5 (28.0-62.0) fl RDW Coeff of Radha 16 H (11.0-15.0) % Plt Count 204 (150-400) K/uL MPV 9.80 (7.40-12.00) fL Neut % (Auto) 80.9 H (48.0-80.0) % Lymph % (Auto) 10.2 L (16.0-40.0) % [place] % (Auto) 8.7 (0.0-15.0) % Eos % (Auto) 0.1 (0.0-7.0) % Baso % (Auto) 0.1 (0.0-1.5) % Neut # (Auto) 10.2 H (1.4-5.7) K/uL Lymph # (Auto) 1.3 (0.6-2.4) K/uL [place] # (Auto) 1.1 H (0.0-0.8) K/uL Eos # (Auto) 0.0 (0.0-0.7) K/uL Baso # (Auto) 0.0 (0.0-0.1) K/uL Nucleated RBC % 0.0 /100WBC Nucleated RBCs # 0 K/uL Sodium 136 (136-145) mmol/L Potassium 3.4 L (3.5-5.1) mmol/L Chloride 95 L (98-107) mmol/L Carbon Dioxide 35.6 H (21.0-32.0) mmol/L BUN 34 H (7.0-18.0) mg/dL Creatinine 1.6 H (0.6-1.0) mg/dL Est Cr Clr Drug Dosing 33.00 mL/min Estimated GFR (MDRD) 31.9 ml/min Glucose 149 H (74-106) mg/dL Calcium 8.7 (8.5-10.1) mg/dL Blood Type Antibody Screen Crossmatch Tye Results Last 24 Hours: Microbiology 04/06/18 12:00 Aerobic Blood Culture - Preliminary Blood - Venous - Lab Draw NO GROWTH AFTER 2 DAYS Anaerobic Blood Culture - Preliminary NO GROWTH AFTER 2 DAYS 04/06/18 12:00 Aerobic Blood Culture - Preliminary Blood - Venous NO GROWTH AFTER 2 DAYS Anaerobic Blood Culture - Preliminary NO GROWTH AFTER 2 DAYS Med Orders - Current: Current Medications Acetaminophen (Tylenol Extra Strength) 500 mg PO Q6H PRN PRN Reason: Pain Last Admin: 04/08/18 23:29 Dose: 500 mg Diphenhydramine HCl (Benadryl) 50 mg PO TID [facility] Last Admin: 04/09/18 05:29 Dose: 50 mg Ferrous Sulfate (Ferrous Sulfate) 325 mg PO BIDMEALS [facility] Last Admin: 04/08/18 16:15 Dose: 325 mg Gabapentin (Neurontin) 300 mg PO TID [facility] Last Admin: 04/09/18 05:29 Dose: 300 mg Levofloxacin/Dextrose 750 mg/ (Premix) 150 mls @ 100 mls/hr IV Q48H [facility] Last Admin: 04/08/18 12:16 Dose: 100 mls/hr Latanoprost (Xalatan 0.005% Ophth Soln) 0 ml EYERT BEDTIME [facility] Last Admin: 04/08/18 21:14 Dose: 1 drop Metoprolol Succinate (Toprol Xl) 100 mg PO DAILY [facility] Last Admin: 04/08/18 09:17 Dose: 100 mg Morphine Sulfate (Morphine) 2 mg IVPUSH Q2H PRN PRN Reason: Chest Pain Last Admin: 04/08/18 13:21 Dose: 2 mg Nitroglycerin (Nitrostat) 0.4 mg SL Q5M PRN PRN Reason: Chest Pain Nystatin (Nystop) 0 gm TOP BID [facility] Last Admin: 04/08/18 21:13 Dose: 1 applic Ondansetron HCl (Zofran) 4 mg IVPUSH Q4H PRN PRN Reason: Nausea/Vomiting Pantoprazole Sodium (Protonix Iv) 40 mg IVPUSH Q12H [facility] Last Admin: 04/08/18 22:50 Dose: 40 mg Ropinirole HCl (Requip) 3 mg PO TID [facility] Last Admin: 04/09/18 05:29 Dose: 3 mg Sodium Chloride (Saline Flush) 10 ml FLUSH ASDIRECTED PRN PRN Reason: Keep Vein Open Last Admin: 04/08/18 12:03 Dose: 10 ml Sodium Chloride (Saline Flush) 2.5 ml FLUSH ASDIRECTED PRN PRN Reason: Keep Vein Open Last Admin: 04/08/18 13:22 Dose: 2.5 ml Discontinued Medications Aspirin (Aspirin) 324 mg PO ONETIME ONE Stop: 04/05/18 16:17 Last Admin: 04/05/18 16:25 Dose: 324 mg Furosemide (Lasix) 40 mg IVPUSH NOW ONE Stop: 04/05/18 16:16 Last Admin: 04/05/18 16:26 Dose: 40 mg Furosemide (Lasix) 40 mg IVPUSH NOW ONE Stop: 04/05/18 22:01 Last Admin: 04/05/18 22:25 Dose: 40 mg Furosemide (Lasix) 40 mg IVPUSH NOW ONE Stop: 04/06/18 16:01 Last Admin: 04/06/18 20:57 Dose: Not Given Magnesium Sulfate 2 gm/ Premix 50 mls @ 50 mls/hr IV ONETIME ONE Stop: 04/05/18 19:16 Last Admin: 04/05/18 18:55 Dose: 50 mls/hr Naproxen (Naproxen Sodium) 220 mg PO BID PRN PRN Reason: Pain Nitrofurantoin Macrocrystals (Macrobid) 100 mg PO BID [facility] Last Admin: 04/06/18 09:14 Dose: 100 mg Pantoprazole Sodium (Protonix Iv) 40 mg IVPUSH Q24H [facility] Last Admin: 04/06/18 20:36 Dose: 40 mg Potassium Chloride (Klor-Con M20) 80 meq PO ONETIME ONE Stop: 04/05/18 17:40 Last Admin: 04/05/18 18:24 Dose: 80 meq Potassium Chloride (Klor-Con M20) 40 meq PO ONETIME ONE Stop: 04/05/18 21:01 Last Admin: 04/05/18 20:15 Dose: 40 meq Potassium Chloride (Klor-Con M20) 40 meq PO ONETIME ONE Stop: 04/06/18 09:01 Last Admin: 04/06/18 09:14 Dose: 40 meq - Exam General: Alert, Oriented, Cooperative, No Acute Distress Lungs: Clear to Auscultation, Normal Respiratory Effort Cardiovascular: Irregular Rhythm GI/Abdominal Exam: Normal Bowel Sounds, Soft, Non-Tender, No Distention Extremities: Pedal Edema (L>R, right improving) Skin: Warm, Dry Neurological: No New Focal Deficit Psy/Mental Status: Alert, Normal Affect, Normal Mood - Problem List Review Problem List Initiated/Reviewed/Updated: Yes - My Orders Last 24 Hours: My Active Orders 04/08/18 08:31 Consult to Physician [CONS] Routine 04/08/18 08:32 Notify Provider Consults [RC] ASDIRECTED 04/08/18 10:45 Nystatin [Nystop] See Dose Instructions TOP BID 04/08/18 19:22 Transfuse Red Blood Cells [COMM] Stat - Plan Plan:: 1. Bilateral lower extremity edema likely related to CHF- improved. She has not been ambulating, she was ambulatory to a degree at home before admission. Originally she was not open to temporary placement at [facility] but she spoke to our CM and agreed that it may be best. CM is working on [employer] application.. PT consulted and working with her. 2. Anemia s/p 5 units of PRBCs with positive hemoccult and hemorrhoids. She received an additional unit of blood last night with increase in hemoglobin from 9.3-9.4. Continue on PPI BID. Will Continue ferrous sulfate. [place] records only showed hemorrhoids on colonoscopy, no EGD was done at the time. Dr. Naidu, general surgery, was consulted yesterday and he plans to perform an EGD this afternoon. Patient will be placed NPO until after the procedure. Dr. Naidu had recommended keeping her hemoglobin above 10 so we will transfuse her another unit this morning. 3. NISREEN- no improvement, BUN from 29 to 34 and Cr stable at 1.6 -monitor, no fluids due to CHF 4. UTI growing Ecoli, pansensitive- continue Levaquin q48. Paitent's white count starting to go down. CT showed signs of stranding around the kidneys R>L suggestive of pyleonephritis. 5. Afib- rate controlled on metoprolol, currently holding warfarin for possible GI bleed. 6. Hypokalemia- will replace with 40 mEq today, recheck in the AM.
[2018-04-09] MEDS: Ferrous Sulfate 325 MG Tab PO SCH ×2 (08:25→17:28)
[2018-04-09] MEDS: Metoprolol Succinate 100 MG Tab.ER PO SCH (08:25)
--- NOTE | 2018-04-09 08:38 | CONS ---
DATE OF CONSULTATION: 04/08/2018 DATE OF : 1945 PRIMARY CARE PHYSICIAN: None PCP REASON FOR CONSULTATION: Consult called this morning for anemia. The patient is seen shortly after consult question from Dr. Bowman and Dr. Saldaña. HISTORY OF PRESENT ILLNESS: The patient is a 72-year-old lady and morbidly obese, BMI of 48.0, weight 316 pounds, complained about chest pain three days ago and the patient was admitted for further management. The patient has atrial fib, on Coumadin 7.5 mg every day and was noted to be anemic to 7.5 in the emergency room and the patient has since received a full packed cell transfusion and hemoglobin is 9.7 this morning. Currently, the patient denies any abdominal pain. The patient remarked she is regularly short of breath, almost all the time, and also have chest pain. It has been going on for years and patient also says she gained 40 pounds for the last several weeks because of fluid retention and that makes her difficult to breathe. Other than that, she says her appetite is good and she eats well, and denied black tarry stool, and denied bright red blood per rectum, and denied change in bowel habit, and denied epigastric pain, and denied hematemesis or hematuria or hemoptysis. The patient did have a colonoscopy done 6 days ago in [place] and the report is not available at the time of dictation. MEDICATIONS: Please refer to nursing note for details. ALLERGIES: Of note, the patient is allergic to amoxicillin, Keflex, and insulins, Valacyclovir, and wool, and more. I will have the nursing staff to confirm about the allergy. When the patient has more than 4 to 5 allergies, makes it difficult for doctor to care the patient. I will have the nursing staff to confirm each single one allergy and reenter the allergy. PAST MEDICAL HISTORY: Significant for atrial fib, angina, fibromyalgia, osteopenia, and basal cell carcinoma. PAST SURGICAL HISTORY: Cataract surgery, tonsil and adenoid, cholecystectomy, gastric bypass, hysterectomy, bladder suspension, total knee replacement, and shoulder replacement. FAMILY HISTORY: Noncontributory. SOCIAL HISTORY: Denied tobacco abuse or alcohol abuse. The patient is a social drinker. PHYSICAL EXAMINATION: GENERAL: A very pleasant lady with full makeup, in no acute distress. HEENT: Normocephalic and atraumatic. Sclerae anicteric. LUNGS: Clear to auscultation. HEART: Irregular and regular with skipped beat. No murmur. ABDOMEN: Soft and nondistended. No pulsating tender midline abdominal structure. Nontender. No epigastric pain. Well-healed surgical scar and upper midline surgical scar. EXTREMITIES: No extremity edema. LABORATORY DATA: Upon consultation, white count is 14, and H and H is 9.7 and 32, and platelet is 250. INR is 1.23 the last one day before, lactate is 1.0, BUN is 29, creatinine is 1.6, glucose is 142. BNP is 296 three days ago. UA three days ago has some wbc and bacteria. ASSESSMENT AND PLAN: The patient basically admitted for atrial fibrillation with chest pain exertion and anemia with acute kidney injury, congestive heart failure, hypokalemic, and hypomagnesium, and the patient is still on oxygen this morning on examination. The patient denied black tarry stool ever, and there is no hematuria, hematemesis, hemoptysis, and the patient is guaiac-positive, suggests micro- bleeding. With patient's BMI of 48, active congestive heart failure, and no hard core sign of active bleeding, EGD is unlikely. Otherwise, probably no finding on esophagogastroduodenoscopy. For the time being, she got packed cells yesterday and her H and H go from 8.7 to 9.7, suggesting there is no active bleeding. We will initiate gastrointestinal bleeding protocol, two large-bore IV access 18-gauge and above, and straight in and out, and Pena to monitor urine output as you are doing, by the way her urine output is quite lauro, and also patient is on Coumadin. Long question is that the patient has any change in the diet as Coumadin is quite sensitive to diet, although on admission, INH is 1.15, which is normal. In light of the situation, the patient's esophagogastroduodenoscopy may be low-yield, patient is likely currently in congestive heart failure, elective procedure; although, elective procedure is probably not advised. We will follow the patient with you and if there is hard core active bleeding, maybe at that time, esophagogastroduodenoscopy and colonoscopy should be repeated and for the time being, we will await the colonoscopy report from [place]. We will follow the patient with you. We will follow the patient with you. JHOAN / VIDAL /[id number]
[2018-04-09] MEDS ORDERED: oxyCODONE 5 MG Tab PO PRN (08:40)
[2018-04-09] MEDS ORDERED: Morphine 2 MG/ML Syringe IVPUSH ONE ×2 (09:08→17:26)
--- NOTE | 2018-04-09 09:14 | PCM.SURGPN ---
- General Info Date of Service: 04/09/18 - Review of Systems General: Reports: No Symptoms (no BM since admission; got 1 rbc overnight; h/h increased from 9.3 to 9.4; no abd pain) - Patient Data Vitals - Most Recent: Last Vital Signs Temp 97.3 F 04/09/18 05:00 Pulse 94 04/09/18 05:00 Resp 18 04/09/18 05:00 BP 112/73 04/09/18 05:00 Pulse Ox 95 04/09/18 05:00 Weight - Most Recent: 316 lb I&O - Last 24 Hours: Intake & Output 04/08/18 04/09/18 04/09/18 22:59 06:59 14:59 Intake Total 650 850 Output Total 750 500 Balance -100 350 Lab Results Last 24 Hrs: Laboratory Results - last 24 hr 04/06/18 04/08/18 04/08/18 Range/Units 03:35 14:04 19:55 WBC (4.0-11.0) K/uL RBC (4.30-5.90) M/uL Hgb 9.3 L (12.0-16.0) g/dL Hct 30.4 L (36.0-46.0) % MCV (80.0-98.0) fL MCH (27.0-32.0) pg MCHC (31.0-37.0) g/dL RDW Std Deviation (28.0-62.0) fl RDW Coeff of Radha (11.0-15.0) % Plt Count (150-400) K/uL MPV (7.40-12.00) fL Neut % (Auto) (48.0-80.0) % Lymph % (Auto) (16.0-40.0) % [place] % (Auto) (0.0-15.0) % Eos % (Auto) (0.0-7.0) % Baso % (Auto) (0.0-1.5) % Neut # (Auto) (1.4-5.7) K/uL Lymph # (Auto) (0.6-2.4) K/uL [place] # (Auto) (0.0-0.8) K/uL Eos # (Auto) (0.0-0.7) K/uL Baso # (Auto) (0.0-0.1) K/uL Nucleated RBC % /100WBC Nucleated RBCs # K/uL Sodium (136-145) mmol/L Potassium (3.5-5.1) mmol/L Chloride (98-107) mmol/L Carbon Dioxide (21.0-32.0) mmol/L BUN (7.0-18.0) mg/dL Creatinine (0.6-1.0) mg/dL Est Cr Clr Drug Dosing mL/min Estimated GFR (MDRD) ml/min Glucose (74-106) mg/dL Calcium (8.5-10.1) mg/dL Blood Type A POSITIVE Antibody Screen NEGATIVE Crossmatch See Detail See Detail 04/09/18 04/09/18 Range/Units 05:37 05:37 WBC 12.58 H (4.0-11.0) K/uL RBC 3.72 L (4.30-5.90) M/uL Hgb 9.4 L (12.0-16.0) g/dL Hct 30.5 L (36.0-46.0) % MCV 82.0 (80.0-98.0) fL MCH 25.3 L (27.0-32.0) pg MCHC 30.8 L (31.0-37.0) g/dL RDW Std Deviation 46.5 (28.0-62.0) fl RDW Coeff of Radha 16 H (11.0-15.0) % Plt Count 204 (150-400) K/uL MPV 9.80 (7.40-12.00) fL Neut % (Auto) 80.9 H (48.0-80.0) % Lymph % (Auto) 10.2 L (16.0-40.0) % [place] % (Auto) 8.7 (0.0-15.0) % Eos % (Auto) 0.1 (0.0-7.0) % Baso % (Auto) 0.1 (0.0-1.5) % Neut # (Auto) 10.2 H (1.4-5.7) K/uL Lymph # (Auto) 1.3 (0.6-2.4) K/uL [place] # (Auto) 1.1 H (0.0-0.8) K/uL Eos # (Auto) 0.0 (0.0-0.7) K/uL Baso # (Auto) 0.0 (0.0-0.1) K/uL Nucleated RBC % 0.0 /100WBC Nucleated RBCs # 0 K/uL Sodium 136 (136-145) mmol/L Potassium 3.4 L (3.5-5.1) mmol/L Chloride 95 L (98-107) mmol/L Carbon Dioxide 35.6 H (21.0-32.0) mmol/L BUN 34 H (7.0-18.0) mg/dL Creatinine 1.6 H (0.6-1.0) mg/dL Est Cr Clr Drug Dosing 33.00 mL/min Estimated GFR (MDRD) 31.9 ml/min Glucose 149 H (74-106) mg/dL Calcium 8.7 (8.5-10.1) mg/dL Blood Type Antibody Screen Crossmatch Tye Results Last 24 Hrs: Microbiology 04/06/18 12:00 Aerobic Blood Culture - Preliminary Blood - Venous - Lab Draw NO GROWTH AFTER 2 DAYS Anaerobic Blood Culture - Preliminary NO GROWTH AFTER 2 DAYS 04/06/18 12:00 Aerobic Blood Culture - Preliminary Blood - Venous NO GROWTH AFTER 2 DAYS Anaerobic Blood Culture - Preliminary NO GROWTH AFTER 2 DAYS Med Orders - Current: Current Medications Acetaminophen (Tylenol Extra Strength) 500 mg PO Q6H PRN PRN Reason: Pain Last Admin: 04/08/18 23:29 Dose: 500 mg Diphenhydramine HCl (Benadryl) 50 mg PO TID [facility] Last Admin: 04/09/18 05:29 Dose: 50 mg Ferrous Sulfate (Ferrous Sulfate) 325 mg PO BIDMEALS [facility] Last Admin: 04/08/18 16:15 Dose: 325 mg Gabapentin (Neurontin) 300 mg PO TID [facility] Last Admin: 04/09/18 05:29 Dose: 300 mg Levofloxacin/Dextrose 750 mg/ (Premix) 150 mls @ 100 mls/hr IV Q48H [facility] Last Admin: 04/08/18 12:16 Dose: 100 mls/hr Latanoprost (Xalatan 0.005% Ophth Soln) 0 ml EYERT BEDTIME [facility] Last Admin: 04/08/18 21:14 Dose: 1 drop Metoprolol Succinate (Toprol Xl) 100 mg PO DAILY [facility] Last Admin: 04/08/18 09:17 Dose: 100 mg Morphine Sulfate (Morphine) 2 mg IVPUSH Q2H PRN PRN Reason: Chest Pain Last Admin: 04/08/18 13:21 Dose: 2 mg Nitroglycerin (Nitrostat) 0.4 mg SL Q5M PRN PRN Reason: Chest Pain Nystatin (Nystop) 0 gm TOP BID [facility] Last Admin: 04/08/18 21:13 Dose: 1 applic Ondansetron HCl (Zofran) 4 mg IVPUSH Q4H PRN PRN Reason: Nausea/Vomiting Oxycodone HCl (Oxycodone) 5 mg PO Q8H PRN PRN Reason: Pain (severe 7-10) Pantoprazole Sodium (Protonix Iv) 40 mg IVPUSH Q12H [facility] Last Admin: 04/08/18 22:50 Dose: 40 mg Ropinirole HCl (Requip) 3 mg PO TID [facility] Last Admin: 04/09/18 05:29 Dose: 3 mg Sodium Chloride (Saline Flush) 10 ml FLUSH ASDIRECTED PRN PRN Reason: Keep Vein Open Last Admin: 04/08/18 12:03 Dose: 10 ml Sodium Chloride (Saline Flush) 2.5 ml FLUSH ASDIRECTED PRN PRN Reason: Keep Vein Open Last Admin: 04/08/18 13:22 Dose: 2.5 ml Discontinued Medications Aspirin (Aspirin) 324 mg PO ONETIME ONE Stop: 04/05/18 16:17 Last Admin: 04/05/18 16:25 Dose: 324 mg Furosemide (Lasix) 40 mg IVPUSH NOW ONE Stop: 04/05/18 16:16 Last Admin: 04/05/18 16:26 Dose: 40 mg Furosemide (Lasix) 40 mg IVPUSH NOW ONE Stop: 04/05/18 22:01 Last Admin: 04/05/18 22:25 Dose: 40 mg Furosemide (Lasix) 40 mg IVPUSH NOW ONE Stop: 04/06/18 16:01 Last Admin: 04/06/18 20:57 Dose: Not Given Magnesium Sulfate 2 gm/ Premix 50 mls @ 50 mls/hr IV ONETIME ONE Stop: 04/05/18 19:16 Last Admin: 04/05/18 18:55 Dose: 50 mls/hr Morphine Sulfate (Morphine) 2 mg IVPUSH ONETIME ONE Stop: 04/09/18 09:09 Naproxen (Naproxen Sodium) 220 mg PO BID PRN PRN Reason: Pain Nitrofurantoin Macrocrystals (Macrobid) 100 mg PO BID [facility] Last Admin: 04/06/18 09:14 Dose: 100 mg Pantoprazole Sodium (Protonix Iv) 40 mg IVPUSH Q24H [facility] Last Admin: 04/06/18 20:36 Dose: 40 mg Potassium Chloride (Klor-Con M20) 80 meq PO ONETIME ONE Stop: 04/05/18 17:40 Last Admin: 04/05/18 18:24 Dose: 80 meq Potassium Chloride (Klor-Con M20) 40 meq PO ONETIME ONE Stop: 04/05/18 21:01 Last Admin: 04/05/18 20:15 Dose: 40 meq Potassium Chloride (Klor-Con M20) 40 meq PO ONETIME ONE Stop: 04/06/18 09:01 Last Admin: 04/06/18 09:14 Dose: 40 meq - Exam General: Alert, Oriented GI/Abdominal Exam: Soft - Problem List Review Problem List Initiated/Reviewed/Updated: Yes - My Orders Last 24 Hours: Active Orders 24 hr Category Date Time Status Notify Provider Consults [RC] ASDIRECTED Care 04/08/18 08:32 Active Verify Patient Consent Obtain [RC] ASDIRECTED Care 04/09/18 08:53 Active Consult to Physician [CONS] Routine Cons 04/08/18 08:31 Active Nothing per Oral After Midnight Diet [DIET] Diet 04/09/18 Breakfast Active Nystatin [Nystop] Med 04/08/18 10:45 Active See Dose Instructions TOP BID oxyCODONE Med 04/09/18 08:40 Active 5 mg PO Q8H PRN Transfuse Red Blood Cells [COMM] Stat Oth 04/08/18 19:22 Ordered Medication Orders Acetaminophen (Tylenol Extra Strength) 500 mg PO Q6H PRN PRN Reason: Pain Last Admin: 04/08/18 23:29 Dose: 500 mg Admin: 04/08/18 16:15 Dose: 500 mg Admin: 04/08/18 06:52 Dose: 500 mg Admin: 04/08/18 00:38 Dose: 500 mg Admin: 04/07/18 15:01 Dose: 500 mg Admin: 04/07/18 03:35 Dose: 500 mg Admin: 04/06/18 12:44 Dose: 500 mg Diphenhydramine HCl (Benadryl) 50 mg PO TID [facility] Last Admin: 04/09/18 05:29 Dose: 50 mg Admin: 04/08/18 21:10 Dose: 50 mg Admin: 04/08/18 13:31 Dose: 50 mg Admin: 04/08/18 05:42 Dose: 50 mg Admin: 04/07/18 21:03 Dose: 50 mg Admin: 04/07/18 15:00 Dose: 50 mg Admin: 04/07/18 05:54 Dose: 50 mg Admin: 04/06/18 21:33 Dose: 50 mg Admin: 04/06/18 14:56 Dose: 50 mg Admin: 04/06/18 06:44 Dose: 50 mg Admin: 04/05/18 21:42 Dose: 50 mg Ferrous Sulfate (Ferrous Sulfate) 325 mg PO BIDMEALS [facility] Last Admin: 04/08/18 16:15 Dose: 325 mg Admin: 04/08/18 09:16 Dose: 325 mg Admin: 04/07/18 16:24 Dose: 325 mg Admin: 04/07/18 08:55 Dose: 325 mg Admin: 04/06/18 17:59 Dose: 325 mg Gabapentin (Neurontin) 300 mg PO TID [facility] Last Admin: 04/09/18 05:29 Dose: 300 mg Admin: 04/08/18 21:11 Dose: 300 mg Admin: 04/08/18 13:31 Dose: 300 mg Admin: 04/08/18 05:42 Dose: 300 mg Admin: 04/07/18 21:04 Dose: 300 mg Admin: 04/07/18 15:01 Dose: 300 mg Admin: 04/07/18 05:54 Dose: 300 mg Admin: 04/06/18 21:33 Dose: 300 mg Admin: 04/06/18 14:56 Dose: 300 mg Admin: 04/06/18 06:44 Dose: 300 mg Admin: 04/05/18 21:42 Dose: 300 mg Levofloxacin/Dextrose 750 mg/ (Premix) 150 mls @ 100 mls/hr IV Q48H [facility] Last Admin: 04/08/18 12:16 Dose: 100 mls/hr Infusion: 04/06/18 13:40 Dose: 100 mls/hr Admin: 04/06/18 12:10 Dose: 100 mls/hr Latanoprost (Xalatan 0.005% Ophth Soln) 0 ml EYERT BEDTIME [facility] Last Admin: 04/08/18 21:14 Dose: 1 drop Admin: 04/07/18 21:00 Dose: 1 drop Admin: 04/06/18 21:32 Dose: 1 drop Admin: 04/05/18 22:24 Dose: 1 drop Metoprolol Succinate (Toprol Xl) 100 mg PO DAILY [facility] Last Admin: 04/08/18 09:17 Dose: 100 mg Admin: 04/07/18 08:54 Dose: 100 mg Admin: 04/06/18 09:13 Dose: 100 mg Morphine Sulfate (Morphine) 2 mg IVPUSH Q2H PRN PRN Reason: Chest Pain Last Admin: 04/08/18 13:21 Dose: 2 mg Admin: 04/08/18 11:19 Dose: 2 mg Admin: 04/07/18 13:05 Dose: 2 mg Admin: 04/07/18 08:30 Dose: 2 mg Admin: 04/07/18 04:34 Dose: 2 mg Admin: 04/06/18 20:37 Dose: 2 mg Admin: 04/06/18 09:18 Dose: 2 mg Nitroglycerin (Nitrostat) 0.4 mg SL Q5M PRN PRN Reason: Chest Pain Nystatin (Nystop) 0 gm TOP BID [facility] Last Admin: 04/08/18 21:13 Dose: 1 applic Admin: 04/08/18 12:01 Dose: 1 applic Ondansetron HCl (Zofran) 4 mg IVPUSH Q4H PRN PRN Reason: Nausea/Vomiting Oxycodone HCl (Oxycodone) 5 mg PO Q8H PRN PRN Reason: Pain (severe 7-10) Pantoprazole Sodium (Protonix Iv) 40 mg IVPUSH Q12H [facility] Last Admin: 04/08/18 22:50 Dose: 40 mg Admin: 04/08/18 12:01 Dose: 40 mg Admin: 04/08/18 01:00 Dose: 40 mg Admin: 04/07/18 11:18 Dose: 40 mg Ropinirole HCl (Requip) 3 mg PO TID [facility] Last Admin: 04/09/18 05:29 Dose: 3 mg Admin: 04/08/18 21:11 Dose: 3 mg Admin: 04/08/18 13:31 Dose: 3 mg Admin: 04/08/18 05:43 Dose: Admin: 04/07/18 21:04 Dose: 3 mg Admin: 04/07/18 15:01 Dose: 3 mg Admin: 04/07/18 05:54 Dose: 3 mg Admin: 04/06/18 21:34 Dose: 3 mg Admin: 04/06/18 14:56 Dose: 3 mg Admin: 04/06/18 06:44 Dose: 3 mg Admin: 04/05/18 21:42 Dose: 3 mg Sodium Chloride (Saline Flush) 10 ml FLUSH ASDIRECTED PRN PRN Reason: Keep Vein Open Last Admin: 04/08/18 12:03 Dose: 10 ml Sodium Chloride (Saline Flush) 2.5 ml FLUSH ASDIRECTED PRN PRN Reason: Keep Vein Open Last Admin: 04/08/18 13:22 Dose: 2.5 ml Admin: 04/08/18 13:21 Dose: 2.5 ml Admin: 04/08/18 13:20 Dose: 2.5 ml Admin: 04/08/18 12:05 Dose: 2.5 ml Admin: 04/08/18 12:04 Dose: 2.5 ml - Plan Plan (Free Text/Narrative):: keep npo, tentatively scheduled egd later today, as pt had a piece of pizza toast; talked to pt, pt concurred
[2018-04-09] MEDS: Pantoprazole 40 MG Vial IVPUSH SCH (10:14)
[2018-04-09] MEDS: Nystatin Topical Powder 15 GM Bottle TOP SCH (10:20)
--- NOTE | 2018-04-09 12:15 | PCM.PREANE ---
Preanesthetic Assessment - Anesthesia/Transfusion/Family Hx Anesthesia History: Prior Anesthesia Without Reaction Family History of Anesthesia Reaction: No Intubation History: Unknown - Review of Systems General: No Symptoms Pulmonary: No Symptoms Cardiovascular: No Symptoms Gastrointestinal: No Symptoms, Other (UGI bleeding) Neurological: No Symptoms Other: Reports: None - Physical Assessment Pulse: 101 O2 Sat by Pulse Oximetry: 96 Respiratory Rate: 16 Blood Pressure: 110/68 Temperature: 37.3 C Vital Signs: Last Vital Signs Temp 37.3 C 04/09/18 11:51 Pulse 108 H 04/09/18 11:51 Resp 16 04/09/18 11:51 BP 128/74 04/09/18 11:51 Pulse Ox 96 04/09/18 11:51 Height: 1.73 m Weight: 143.335 kg ASA Class: 3 Mental Status: Alert & Oriented x3 Airway Class: Mallampati = 2 Dentition: Reports: Dentures (upper and lower) Thyro-Mental Finger Breadths: 3 Mouth Opening Finger Breadths: 2 ROM/Head Extension: Limited/Partial Lungs: Normal Respiratory Effort, Decreased Breath Sounds Cardiovascular: Regular Rate, Irregular Rhythm - Lab Values: Laboratory Last Values WBC 12.58 K/uL (4.0-11.0) H 04/09/18 05:37 RBC 3.72 M/uL (4.30-5.90) L 04/09/18 05:37 Hgb 9.4 g/dL (12.0-16.0) L 04/09/18 05:37 Hct 30.5 % (36.0-46.0) L 04/09/18 05:37 MCV 82.0 fL (80.0-98.0) 04/09/18 05:37 MCH 25.3 pg (27.0-32.0) L 04/09/18 05:37 MCHC 30.8 g/dL (31.0-37.0) L 04/09/18 05:37 RDW Std Deviation 46.5 fl (28.0-62.0) 04/09/18 05:37 RDW Coeff of Radha 16 % (11.0-15.0) H 04/09/18 05:37 Plt Count 204 K/uL (150-400) 04/09/18 05:37 MPV 9.80 fL (7.40-12.00) 04/09/18 05:37 Neut % (Auto) 80.9 % (48.0-80.0) H 04/09/18 05:37 Lymph % (Auto) 10.2 % (16.0-40.0) L 04/09/18 05:37 [place] % (Auto) 8.7 % (0.0-15.0) 04/09/18 05:37 Eos % (Auto) 0.1 % (0.0-7.0) 04/09/18 05:37 Baso % (Auto) 0.1 % (0.0-1.5) 04/09/18 05:37 Neut # (Auto) 10.2 K/uL (1.4-5.7) H 04/09/18 05:37 Lymph # (Auto) 1.3 K/uL (0.6-2.4) 04/09/18 05:37 [place] # (Auto) 1.1 K/uL (0.0-0.8) H 04/09/18 05:37 Eos # (Auto) 0.0 K/uL (0.0-0.7) 04/09/18 05:37 Baso # (Auto) 0.0 K/uL (0.0-0.1) 04/09/18 05:37 Nucleated RBC % 0.0 /100WBC 04/09/18 05:37 Nucleated RBCs # 0 K/uL 04/09/18 05:37 Absolute Retic 66.70 K/uL (20-80) 04/05/18 16:07 Percent Retic 2.2 % (0.5-1.5) H 04/05/18 16:07 Immature Retic Fraction 32 % 04/05/18 16:07 INR 1.23 04/07/18 05:05 Lactate 1.0 mmol/L (0.20-2.00) 04/06/18 12:00 Sodium 136 mmol/L (136-145) 04/09/18 05:37 Potassium 3.4 mmol/L (3.5-5.1) L 04/09/18 05:37 Chloride 95 mmol/L (98-107) L 04/09/18 05:37 Carbon Dioxide 35.6 mmol/L (21.0-32.0) H 04/09/18 05:37 BUN 34 mg/dL (7.0-18.0) H 04/09/18 05:37 Creatinine 1.6 mg/dL (0.6-1.0) H 04/09/18 05:37 Est Cr Clr Drug Dosing 33.00 mL/min 04/09/18 05:37 Estimated GFR (MDRD) 31.9 ml/min 04/09/18 05:37 Glucose 149 mg/dL (74-106) H 04/09/18 05:37 Calcium 8.7 mg/dL (8.5-10.1) 04/09/18 05:37 Magnesium 1.8 mg/dL (1.8-2.4) 04/06/18 08:20 Iron 16 ug/dL (50-175) L 04/05/18 16:07 TIBC 466 ug/dL (250-450) H 04/05/18 16:07 % Saturation 3.43 % (20-55) L 04/05/18 16:07 Ferritin 27 ng/mL (8-252) 04/05/18 16:07 Total Bilirubin 1.9 mg/dL (0.2-1.0) H 04/07/18 05:05 AST 25 IU/L (15-37) 04/07/18 05:05 ALT 19 IU/L (14-63) 04/07/18 05:05 Alkaline Phosphatase 84 U/L (46-116) 04/07/18 05:05 Troponin I < 0.050 ng/mL (0.000-0.056) 04/06/18 08:20 B-Natriuretic Peptide 296 PG/ML (<100) H 04/05/18 16:07 Total Protein 7.4 g/dL (6.4-8.2) 04/07/18 05:05 Albumin 2.9 g/dL (3.4-5.0) L 04/07/18 05:05 Globulin 4.5 g/dL (2.0-3.5) H 04/07/18 05:05 Albumin/Globulin Ratio 0.6 (1.3-2.8) L 04/07/18 05:05 TSH 3rd Generation 0.47 uIU/mL (0.36-3.74) 04/05/18 16:07 Urine Color YELLOW 04/05/18 16:55 Urine Appearance CLEAR 04/05/18 16:55 Urine pH 6.0 (5.0-8.0) 04/05/18 16:55 Ur Specific [place] 1.010 (1.001-1.035) 04/05/18 16:55 Urine Protein NEGATIVE mg/dL (NEGATIVE) 04/05/18 16:55 Urine Glucose (UA) NEGATIVE mg/dL (NEGATIVE) 04/05/18 16:55 Urine Ketones NEGATIVE mg/dL (NEGATIVE) 04/05/18 16:55 Urine Occult Blood NEGATIVE (NEGATIVE) 04/05/18 16:55 Urine Nitrite POSITIVE (NEGATIVE) H 04/05/18 16:55 Urine Bilirubin NEGATIVE (NEGATIVE) 04/05/18 16:55 Urine Urobilinogen 0.2 EU/dL (<2.0) 04/05/18 16:55 Ur Leukocyte Esterase NEGATIVE (NEGATIVE) 04/05/18 16:55 Urine RBC RARE (0-2/HPF) 04/05/18 16:55 Urine WBC 4-6 (0-5/HPF) 04/05/18 16:55 Ur Epithelial Cells FEW (NONE-FEW) 04/05/18 16:55 Urine Bacteria 2+ (NEGATIVE) H 04/05/18 16:55 Blood Type A POSITIVE 04/08/18 19:55 Antibody Screen NEGATIVE 04/08/18 19:55 Crossmatch See Detail 04/08/18 19:55 Tx Rx Implicated Unit 1 [id number] 04/06/18 03:35 Unit 1 Component RBC 04/06/18 03:35 Pre-Trans Vis Hemolysis NEGATIVE 04/06/18 03:35 Pre-Trans Icterus NEGATIVE 04/06/18 03:35 Post-Trans Blood Type A POSITIVE 04/06/18 03:35 Post-Tx Visible Hemolys NEGATIVE 04/06/18 03:35 Post-Trans Icterus NEGATIVE 04/06/18 03:35 Post-Trans ALVARO Poly NEGATIVE 04/06/18 03:35 Reaction Interpretation NON-HEM TRANSF RX 04/06/18 03:35 - Allergies Allergies/Adverse Reactions: Allergies Allergy/AdvReac Type Severity Reaction Status Date / Time amoxicillin Allergy Rash Verified 01/12/18 17:39 cephalexin monohydrate Allergy Rash Verified 01/12/18 17:39 [From Keflex] Penicillins Allergy Rash Verified 01/12/18 17:39 rofecoxib [From Vioxx] Allergy Rash Verified 01/12/18 17:39 tetanus toxoid, adsorbed Allergy Rash Verified 01/12/18 17:39 valacyclovir HCl Allergy Rash Verified 01/12/18 17:39 [From Valtrex] wool Allergy Rash Verified 01/12/18 17:39 Avalox Allergy Rash Uncoded 01/12/18 17:39 Bextra Allergy Rash Uncoded 01/12/18 17:39 celebrex Allergy Rash Uncoded 01/12/18 17:39 ferlacit Allergy Hypotension Uncoded 01/12/18 17:39 macrobid Allergy Rash Uncoded 01/12/18 17:39 plastic tape Allergy Rash Uncoded 01/12/18 17:39 Zofran Allergy Rash Uncoded 01/12/18 17:39 - Blood Blood Available: No - Anesthesia Plan Pre-Op Medication Ordered: None - Acknowledgements Anesthesia Type Planned: MAC Pt an Appropriate Candidate for the Planned Anesthesia: Yes Alternatives and Risks of Anesthesia Discussed w Pt/Guardian: Yes Pt/Guardian Understands and Agrees with Anesthesia Plan: Yes PreAnesthesia Questionnaire HEENT History: Reports: Cataract Other HEENT History: Bline to left eye Cardiovascular History: Reports: Afib, Angina (use to take 2 NTG per day in 90' s. 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 BNP 296 (CHF)) Respiratory History: Reports: SOB (on exertion) Genitourinary History: Reports: None Musculoskeletal History: Reports: Fibromyalgia, Other (See Below) (osteopenia) Other Musculoskeletal History: MS more than 50 years Neurological History: Reports: None, MS Psychiatric History: Reports: None Endocrine/Metabolic History: Reports: None Hematologic History: Reports: Anemia (Hg 9.4 after 4 units of PRBC), Anticoagulation Therapy Immunologic History: Reports: None Oncologic (Cancer) History: Reports: Basal Cell Carcinoma - Infectious Disease History Infectious Disease History: Reports: Chicken Pox, Measles, Mumps, Shingles - Past Surgical History HEENT Surgical History: Reports: Cataract Surgery, Tonsillectomy GI Surgical History: Reports: Appendectomy, Cholecystectomy, Colonoscopy ( in [place]), Other (See Below) Other GI Surgeries/Procedures: gastric by pass surgery Female Surgical History: Reports: Hysterectomy, Other (See Below) Other Female Surgeries/Procedures: bladder suspension Musculoskeletal Surgical History: Reports: Knee Replacement (bilateral knee replacement), Shoulder Replacement (bilateral shoulder replacement) - SUBSTANCE USE Smoking Status *Q: Never Smoker Tobacco Use Within Last Twelve Months: No Second Hand Smoke Exposure: No Date of Last Drink: 07/21/17 Recreational Drug Use History: No - HOME MEDS Home Medications: Home Meds Bumetanide 2 mg PO BID 07/04/17 [History] Gabapentin [Neurontin] 300 mg PO TID 07/04/17 [History] Naproxen Sodium [Aleve] 220 mg PO BID PRN 07/04/17 [History] Potassium Chloride 10 meq PO BIDMEALS 07/04/17 [History] Warfarin [Coumadin] 5 mg PO DAILY 07/04/17 [History] diphenhydrAMINE [Benadryl] 50 mg PO TID 07/04/17 [History] metOLazone [Metolazone] 2.5 mg PO MOWEFR 07/04/17 [History] traMADol [Ultram] 50 mg PO Q8H PRN 07/04/17 [History] Acetaminophen [Tylenol Extra Strength] 500 mg PO Q6H PRN 04/05/18 [History] Latanoprost [Xalatan] 1 drop OP BEDTIME 04/05/18 [History] Metoprolol Succinate 100 mg PO DAILY 04/05/18 [History] Nitroglycerin [Nitrostat] 0.3 mg SL Q5M PRN MDD 0.9 04/05/18 [History] rOPINIRole HCl [rOPINIRole] 3 mg PO TID 04/05/18 [History] - CURRENT (IN HOUSE) MEDS Current Meds: Current Medications Acetaminophen (Tylenol Extra Strength) 500 mg PO Q6H PRN PRN Reason: Pain Last Admin: 04/08/18 23:29 Dose: 500 mg Diphenhydramine HCl (Benadryl) 50 mg PO TID [facility] Last Admin: 04/09/18 05:29 Dose: 50 mg Ferrous Sulfate (Ferrous Sulfate) 325 mg PO BIDMEALS [facility] Last Admin: 04/09/18 08:25 Dose: 325 mg Gabapentin (Neurontin) 300 mg PO TID [facility] Last Admin: 04/09/18 05:29 Dose: 300 mg Levofloxacin/Dextrose 750 mg/ (Premix) 150 mls @ 100 mls/hr IV Q48H [facility] Last Admin: 04/08/18 12:16 Dose: 100 mls/hr Latanoprost (Xalatan 0.005% Ophth Soln) 0 ml EYERT BEDTIME [facility] Last Admin: 04/08/18 21:14 Dose: 1 drop Metoprolol Succinate (Toprol Xl) 100 mg PO DAILY [facility] Last Admin: 04/09/18 08:25 Dose: 100 mg Morphine Sulfate (Morphine) 2 mg IVPUSH Q2H PRN PRN Reason: Chest Pain Last Admin: 04/08/18 13:21 Dose: 2 mg Nitroglycerin (Nitrostat) 0.4 mg SL Q5M PRN PRN Reason: Chest Pain Nystatin (Nystop) 0 gm TOP BID [facility] Last Admin: 04/09/18 10:20 Dose: 1 applic Ondansetron HCl (Zofran) 4 mg IVPUSH Q4H PRN PRN Reason: Nausea/Vomiting Oxycodone HCl (Oxycodone) 5 mg PO Q8H PRN PRN Reason: Pain (severe 7-10) Pantoprazole Sodium (Protonix Iv) 40 mg IVPUSH Q12H [facility] Last Admin: 04/09/18 10:14 Dose: 40 mg Ropinirole HCl (Requip) 3 mg PO TID [facility] Last Admin: 04/09/18 05:29 Dose: 3 mg Sodium Chloride (Saline Flush) 10 ml FLUSH ASDIRECTED PRN PRN Reason: Keep Vein Open Last Admin: 04/08/18 12:03 Dose: 10 ml Sodium Chloride (Saline Flush) 2.5 ml FLUSH ASDIRECTED PRN PRN Reason: Keep Vein Open Last Admin: 04/08/18 13:22 Dose: 2.5 ml Discontinued Medications Aspirin (Aspirin) 324 mg PO ONETIME ONE Stop: 04/05/18 16:17 Last Admin: 04/05/18 16:25 Dose: 324 mg Furosemide (Lasix) 40 mg IVPUSH NOW ONE Stop: 04/05/18 16:16 Last Admin: 04/05/18 16:26 Dose: 40 mg Furosemide (Lasix) 40 mg IVPUSH NOW ONE Stop: 04/05/18 22:01 Last Admin: 04/05/18 22:25 Dose: 40 mg Furosemide (Lasix) 40 mg IVPUSH NOW ONE Stop: 04/06/18 16:01 Last Admin: 04/06/18 20:57 Dose: Not Given Magnesium Sulfate 2 gm/ Premix 50 mls @ 50 mls/hr IV ONETIME ONE Stop: 04/05/18 19:16 Last Admin: 04/05/18 18:55 Dose: 50 mls/hr Morphine Sulfate (Morphine) 2 mg IVPUSH ONETIME ONE Stop: 04/09/18 09:09 Last Admin: 04/09/18 09:21 Dose: 2 mg Naproxen (Naproxen Sodium) 220 mg PO BID PRN PRN Reason: Pain Nitrofurantoin Macrocrystals (Macrobid) 100 mg PO BID [facility] Last Admin: 04/06/18 09:14 Dose: 100 mg Pantoprazole Sodium (Protonix Iv) 40 mg IVPUSH Q24H [facility] Last Admin: 04/06/18 20:36 Dose: 40 mg Potassium Chloride (Klor-Con M20) 80 meq PO ONETIME ONE Stop: 04/05/18 17:40 Last Admin: 04/05/18 18:24 Dose: 80 meq Potassium Chloride (Klor-Con M20) 40 meq PO ONETIME ONE Stop: 04/05/18 21:01 Last Admin: 04/05/18 20:15 Dose: 40 meq Potassium Chloride (Klor-Con M20) 40 meq PO ONETIME ONE Stop: 04/06/18 09:01 Last Admin: 04/06/18 09:14 Dose: 40 meq
[2018-04-09] MEDS ORDERED: diphenhydrAMINE 50 MG/ML SDV IVPUSH ONE (13:23)
[2018-04-09] MEDS: Acetaminophen 500 MG Tab PO PRN (13:47)
[2018-04-09] MEDS ORDERED: Promethazine 25 MG/ML SDV IM ONE ×2 (14:36→16:45)
[2018-04-09] MEDS ORDERED: fentaNYL 100 MCG/2 ML SDV ONE (14:58)
[2018-04-09] MEDS ORDERED: Propofol 200 MG/20 ML SDV ONE (14:58)
--- NOTE | 2018-04-09 15:44 | PCM.SN ---
- Free Text/Narrative Note: Saw pt in preperation for scheduled EGD to r/o side of bleeding. Pt admitted with anemia and occult pos stool. Also actice CHF. Pt has received transfusions yest and today and has had what is assumed to be febrile transfusion reaction being treated with antipyretic. Pt c/o dyspnea, is diaphoretic, weak. and has rales posteriorly to mid lung rodriguez bilat. Pt is certainly not stable for an elective anesthetic for a diagnostic EGD in the absence of hematemesis or acute bleeding. Would recommend treating the fluid overload and congestive failure, prior to rescheduling the EGD. Discussed with Dr Naidu and patient and her family..
--- NOTE | 2018-04-09 15:59 | PCM.SN ---
- Free Text/Narrative Note: pt did not look like this yesterday and this morning; may have an acute event since then; egd cancelled, concerned pt would be on ventilator after egd; strict i/o, transfuse to keep h/h > 10
--- NOTE | 2018-04-09 17:42 | PCM.SN ---
- Free Text/Narrative Note: The patient was receiving her 6th unit of blood this afternoon and had a reaction. She spiked a temp to 102.5 and because nauseous. She was given tylenol, benadryl, and zofran. She was also scheduled for an EGD this afternoon but general surgery and anesthesia did not feel comfortable performing the procedure. They are afraid they would need to intubate her and inevitably be on a ventilator for a while. She also developed acute epigastric pain. There is concern for perforation so stat cxr and abdominal x-ray were ordered and did not show any free air. After discussion with care team and patient it was deemed that she requires a higher level of care and should be transferred. Spoke to Dr. Hernandez, ED provider at [facility] in [place], who accepted the patient at 1730.
--- NOTE | 2018-04-10 12:41 | CR ---
EXAM DATE: 04/07/18 PATIENT'S AGE: 72 Patient: KATYA DAILEY Facility: [place], [place] Site . Site : 1945 Study: XRay Chest [id number]/13/2018 6:42:47 PM Ordering Physician: Gracie Srivastava Final Report: Indication: Acute abdominal pain Technique: Upright frontal views chest Comparison: April 05, 2018 Findings/Impression: Stable cardiomediastinal silhouette. Clear lungs. No pneumothorax or effusion. No free air. Status post bilateral shoulder arthroplasties. Dictated by Mariella Chaves MD @ Apr 09 2018 7:08PM (Electronic Signature) Report Signed by Proxy. VINH
--- NOTE | 2018-04-10 12:42 | CR ---
EXAM DATE: 04/07/18 PATIENT'S AGE: 72 Patient: KATYA DAILEY Facility: [place], [place] Site . Site : 1945 Study: XRay Abdomen [id number]/13/2018 6:43:45 PM Ordering Physician: Gracie Srivastava Final Report: Indication: Abdominal pain Technique: KUB 2 view Comparison: None Findings/Impression: : Images are significantly limited by patient body habitus. Nonspecific bowel gas pattern. No free air identified. Degenerative changes in the spine. Consider CT abdomen pelvis for further evaluation if clinically indicated. Dictated by Mariella Chaves MD @ Apr 09 2018 7:18PM (Electronic Signature) Report Signed by Proxy. VINH
== END 2018-04-09 18:30 | DRG 313 ==
LOC: MW.ED 15:55 → MW.MS 17:17 → OBSVTOIN 04-07 11:33 → MW.MS 04-07 13:58
PROVIDERS: ADMIT Internal Medicine; ATTEND Internal Medicine
PROC: 30233N1 Transfusion of Nonautologous Red Blood Cells into Peripheral Vein, Percutaneous Approach (ICD-10-PCS; principal; 2018-04-07)
DX: R07.9 Chest pain, unspecified (principal); N17.9 Acute kidney failure, unspecified; N39.0 Urinary tract infection, site not specified; Z68.42 Body mass index [BMI] 45.0-49.9, adult; D64.9 Anemia, unspecified; Z88.8 Allergy status to other drugs, medicaments and biological substances; R60.9 Edema, unspecified; Y84.8 Other medical procedures as the cause of abnormal reaction of the patient, or of later complication, without mention of misadventure at the time of the procedure; R50.84 Febrile nonhemolytic transfusion reaction; T80.89XA Other complications following infusion, transfusion and therapeutic injection, initial encounter; E66.01 Morbid (severe) obesity due to excess calories; I50.9 Heart failure, unspecified; E87.6 Hypokalemia; E83.42 Hypomagnesemia; I48.91 Unspecified atrial fibrillation; M79.7 Fibromyalgia; Z88.0 Allergy status to penicillin; Z88.1 Allergy status to other antibiotic agents; Z88.7 Allergy status to serum and vaccine; Z79.899 Other long term (current) drug therapy; Z79.01 Long term (current) use of anticoagulants; Z85.828 Personal history of other malignant neoplasm of skin
CPT/HCPCS: 36415 ×2; 36430 ×2; 51702; 71045; 80053 ×3; 81001; 82272; 82728; 83550; 83605; 83735 ×2; 83880; 84443; 84484 ×3; 85014; 85018; 85025 ×3; 85045; 85610 ×3; 86850; 86900; 86901; 86920 ×2; 86921 ×2; 86922 ×2; 87040 ×2; 87086; 93005; 93970; 96374; 97110; 97162; 99285; A9270 ×28; C9113 ×3; J1940 ×3; J1956; J2270 ×4; J3475; P9016 ×3; 74018; 74018-26; 74176; 74176-26; 80048; 85652; 87088; 87186; 96365; 96366; 96367; 96375; 96376; 97530-GP; 99284; G0378; J1200; J2405; J2550; J2704; J3010

== ENCOUNTER 2019-04-09 15:34 | Emergency (ER) | payer MEDICARE, BC, OTHER ==
[2019-04-09] MEDS ORDERED: Sodium Chloride 0.9% 2.5 ML Syringe FLUSH PRN (15:41)
[2019-04-09] MEDS ORDERED: Sodium Chloride 0.9% 10 ML Syringe FLUSH PRN (15:41)
--- NOTE | 2019-04-09 16:11 | EDM.PDOC ---
ED HPI GENERAL MEDICAL PROBLEM - General Chief Complaint: General Stated Complaint: AMB Time Seen by Provider: 04/09/19 15:35 Source of Information: Reports: Patient History Limitations: Reports: No Limitations - History of Present Illness INITIAL COMMENTS - FREE TEXT/NARRATIVE: HISTORY AND PHYSICAL: History of present illness: Patient is a 73-year-old female presents to the ED via EMS for weakness and fever. Past medical history of atrial fibrillation and anemia. She states she broke her femur after having a fall 2 months ago in [place]. She received 2 months of rehab and returned home 2 weeks ago. She states she hasn't been doing well since then but notes over the past 2 days she has been having more weakness. She states she has been trying to get in to [place] but has not been able to. She denies chest pain, shortness of breath, nausea, vomiting, abdominal pain, dysuria, hematuria. Review of systems: As per history of present illness and below otherwise all systems reviewed and negative. Past medical history: As per history of present illness and as reviewed below otherwise noncontributory. Surgical history: As per history of present illness and as reviewed below otherwise noncontributory. Social history: No reported history of drug or alcohol abuse. Family history: As per history of present illness and as reviewed below otherwise noncontributory. Physical exam: General: Patient sitting comfortably in no acute distress and nontoxic appearing HEENT: Atraumatic, normocephalic, pupils reactive, negative for conjunctival pallor or scleral icterus, mucous membranes moist, throat clear, neck supple, nontender, trachea midline. No meningeal signs. Lungs: Clear to auscultation, breath sounds equal bilaterally, chest nontender. Heart: S1S2, regular, negative for clicks, rubs, or overt murmur. Abdomen: Soft, nondistended, nontender. Negative for masses or hepatosplenomegaly. Negative for costovertebral tenderness. No rigidity, rebound , guarding. Pelvis: Stable nontender. Genitourinary: Deferred. Rectal: Deferred. Extremities: Atraumatic, negative for cords or calf pain. Neurovascular unremarkable. Neuro: Awake, alert, oriented. Cranial nerves II through XII unremarkable. Cerebellum unremarkable. Motor and sensory unremarkable throughout. Exam nonfocal. Notes: Discussed with Dr. Manning, he does not believe patient meets criteria for admission. Patient understands and is agreeable to this. Diagnostics: CBC, CMP, UA, PT/INR, CXR, EKG Therapeutics: 10mg Diltiazem Prescriptions: Ciprofloxacin Impression: UTI, atrial fibrillation with RVR Plan: Drink plenty of fluids and take antibiotic as directed. Follow up with primary care provider Return to ED as needed as discussed Definitive disposition and diagnosis as appropriate pending reevaluation and review of above. - Related Data Allergies Allergy/AdvReac Type Severity Reaction Status Date / Time amoxicillin Allergy Rash Verified 04/09/19 15:38 cephalexin monohydrate Allergy Rash Verified 04/09/19 15:38 [From Keflex] Penicillins Allergy Rash Verified 04/09/19 15:38 rofecoxib [From Vioxx] Allergy Rash Verified 04/09/19 15:38 tetanus toxoid, adsorbed Allergy Rash Verified 04/09/19 15:38 valacyclovir HCl Allergy Rash Verified 04/09/19 15:38 [From Valtrex] wool Allergy Rash Verified 04/09/19 15:38 Avalox Allergy Rash Uncoded 04/09/19 15:38 Bextra Allergy Rash Uncoded 04/09/19 15:38 celebrex Allergy Rash Uncoded 04/09/19 15:38 ferlacit Allergy Hypotension Uncoded 04/09/19 15:38 macrobid Allergy Rash Uncoded 04/09/19 15:38 plastic tape Allergy Rash Uncoded 04/09/19 15:38 Zofran Allergy Rash Uncoded 04/09/19 15:38 Home Meds: Home Meds Bumetanide 2 mg PO BID 07/04/17 [History] Gabapentin [Neurontin] 300 mg PO TID 07/04/17 [History] Naproxen Sodium [Aleve] 220 mg PO BID PRN 07/04/17 [History] Potassium Chloride 10 meq PO BIDMEALS 07/04/17 [History] Warfarin [Coumadin] 5 mg PO DAILY 07/04/17 [History] diphenhydrAMINE [Benadryl] 50 mg PO TID 07/04/17 [History] metOLazone [Metolazone] 2.5 mg PO MOWEFR 07/04/17 [History] traMADol [Ultram] 50 mg PO Q8H PRN 07/04/17 [History] Acetaminophen [Tylenol Extra Strength] 500 mg PO Q6H PRN 04/05/18 [History] Latanoprost [Xalatan] 1 drop OP BEDTIME 04/05/18 [History] Metoprolol Succinate 100 mg PO DAILY 04/05/18 [History] Nitroglycerin [Nitrostat] 0.3 mg SL Q5M PRN MDD 0.9 04/05/18 [History] rOPINIRole HCl [rOPINIRole] 3 mg PO TID 04/05/18 [History] Ciprofloxacin HCl [Cipro] 500 mg PO BID 10 Days #20 tablet 04/09/19 [Rx] Past Medical History HEENT History: Reports: Cataract Other HEENT History: Bline to left eye Cardiovascular History: Reports: Afib, Angina, Other (See Below) Respiratory History: Reports: SOB Genitourinary History: Reports: None Musculoskeletal History: Reports: Fibromyalgia, Other (See Below) Other Musculoskeletal History: MS more than 50 years Neurological History: Reports: None, MS Psychiatric History: Reports: None Endocrine/Metabolic History: Reports: None Hematologic History: Reports: Anemia, Anticoagulation Therapy Immunologic History: Reports: None Oncologic (Cancer) History: Reports: Basal Cell Carcinoma - Infectious Disease History Infectious Disease History: Reports: Chicken Pox, Measles, Mumps, Shingles - Past Surgical History HEENT Surgical History: Reports: Cataract Surgery, Tonsillectomy GI Surgical History: Reports: Appendectomy, Cholecystectomy, Colonoscopy, Other (See Below) Other GI Surgeries/Procedures: gastric by pass surgery Female Surgical History: Reports: Hysterectomy, Other (See Below) Other Female Surgeries/Procedures: bladder suspension Musculoskeletal Surgical History: Reports: Knee Replacement, Shoulder Replacement, Other (See Below) Other Musculoskeletal Surgeries/Procedures:: left femur surgery Social & Family History - Family History Family Medical History: Noncontributory - Tobacco Use Smoking Status *Q: Never Smoker - Caffeine Use Caffeine Use: Reports: Coffee, Tea - Recreational Drug Use Recreational Drug Use: No ED ROS GENERAL - Review of Systems Review Of Systems: ROS reveals no pertinent complaints other than HPI. ED EXAM, GENERAL - Physical Exam Exam: See Below (see dictation) Course - Vital Signs Last Recorded V/S: Last Vital Signs Temp 97.4 F 04/09/19 17:03 Pulse 95 04/09/19 17:03 Resp 22 H 04/09/19 17:03 BP 147/85 H 04/09/19 17:03 Pulse Ox 96 04/09/19 17:03 - Orders/Labs/Meds Orders: Active Orders 24 hr Category Date Time Status EKG Documentation Completion [RC] STAT Care 04/09/19 15:41 Active CULTURE BLOOD [BC] Stat Lab 04/09/19 17:09 Ordered CULTURE BLOOD [BC] Stat Lab 04/09/19 17:09 Ordered CULTURE URINE [RM] Stat Lab 04/09/19 16:40 Received LACTATE WITH REFLEX [BG] Stat Lab 04/09/19 17:09 Ordered Sodium Chloride 0.9% [Normal Saline] 500 ml Med 04/09/19 16:15 Active IV STAT Sodium Chloride 0.9% [Saline Flush] Med 04/09/19 15:41 Active 10 ml FLUSH ASDIRECTED PRN Sodium Chloride 0.9% [Saline Flush] Med 04/09/19 15:41 Active 2.5 ml FLUSH ASDIRECTED PRN Blood Culture x2 Reflex Set [OM.PC] Stat Oth 04/09/19 17:09 Ordered Saline Lock Insert [OM.PC] Stat Oth 04/09/19 15:41 Ordered Medication Orders Sodium Chloride (Normal Saline) 500 mls @ 999 mls/hr IV STAT SITA Last Admin: 04/09/19 16:49 Dose: 999 mls/hr Sodium Chloride (Saline Flush) 10 ml FLUSH ASDIRECTED PRN PRN Reason: Keep Vein Open Sodium Chloride (Saline Flush) 2.5 ml FLUSH ASDIRECTED PRN PRN Reason: Keep Vein Open Labs: Laboratory Tests 04/09/19 04/09/19 04/09/19 Range/Units 16:05 16:05 16:05 WBC 13.68 H (4.0-11.0) K/uL RBC 3.42 L (4.30-5.90) M/uL Hgb 9.9 L (12.0-16.0) g/dL Hct 32.2 L (36.0-46.0) % MCV 94.2 (80.0-98.0) fL MCH 28.9 (27.0-32.0) pg MCHC 30.7 L (31.0-37.0) g/dL RDW Std Deviation 56.8 (28.0-62.0) fl RDW Coeff of Radha 17 H (11.0-15.0) % Plt Count 235 (150-400) K/uL MPV 9.50 (7.40-12.00) fL Neut % (Auto) 69.5 (48.0-80.0) % Lymph % (Auto) 20.1 (16.0-40.0) % Dickinson % (Auto) 9.9 (0.0-15.0) % Eos % (Auto) 0.4 (0.0-7.0) % Baso % (Auto) 0.1 (0.0-1.5) % Neut # (Auto) 9.5 H (1.4-5.7) K/uL Lymph # (Auto) 2.8 H (0.6-2.4) K/uL Dickinson # (Auto) 1.4 H (0.0-0.8) K/uL Eos # (Auto) 0.1 (0.0-0.7) K/uL Baso # (Auto) 0.0 (0.0-0.1) K/uL Nucleated RBC % 0.0 /100WBC Nucleated RBCs # 0 K/uL INR 0.99 Sodium 138 (136-145) mmol/L Potassium 3.9 (3.5-5.1) mmol/L Chloride 103 (98-107) mmol/L Carbon Dioxide 27.1 (21.0-32.0) mmol/L BUN 19 H (7.0-18.0) mg/dL Creatinine 2.0 H (0.6-1.0) mg/dL Est Cr Clr Drug Dosing 26.03 mL/min Estimated GFR (MDRD) 24.6 ml/min Glucose 138 H (74-106) mg/dL Calcium 9.0 (8.5-10.1) mg/dL Total Bilirubin 0.5 (0.2-1.0) mg/dL AST 15 (15-37) IU/L ALT 13 L (14-63) IU/L Alkaline Phosphatase 93 (46-116) U/L Troponin I < 0.050 (0.000-0.056) ng/mL B-Natriuretic Peptide (<100) PG/ML Total Protein 6.4 (6.4-8.2) g/dL Albumin 2.2 L (3.4-5.0) g/dL Globulin 4.2 H (2.6-4.0) g/dL Albumin/Globulin Ratio 0.5 L (0.9-1.6) Urine Color Urine Appearance Urine pH (5.0-8.0) Ur Specific [place] (1.001-1.035) Urine Protein (NEGATIVE) mg/dL Urine Glucose (UA) (NEGATIVE) mg/dL Urine Ketones (NEGATIVE) mg/dL Urine Occult Blood (NEGATIVE) Urine Nitrite (NEGATIVE) Urine Bilirubin (NEGATIVE) Urine Urobilinogen (<2.0) EU/dL Ur Leukocyte Esterase (NEGATIVE) Urine RBC (0-2/HPF) Urine WBC (0-5/HPF) Ur Epithelial Cells (NONE-FEW) Urine Bacteria (NEGATIVE) Urine Mucus (NONE-MOD) 04/09/19 04/09/19 Range/Units 16:05 16:40 WBC (4.0-11.0) K/uL RBC (4.30-5.90) M/uL Hgb (12.0-16.0) g/dL Hct (36.0-46.0) % MCV (80.0-98.0) fL MCH (27.0-32.0) pg MCHC (31.0-37.0) g/dL RDW Std Deviation (28.0-62.0) fl RDW Coeff of Radha (11.0-15.0) % Plt Count (150-400) K/uL MPV (7.40-12.00) fL Neut % (Auto) (48.0-80.0) % Lymph % (Auto) (16.0-40.0) % Dickinson % (Auto) (0.0-15.0) % Eos % (Auto) (0.0-7.0) % Baso % (Auto) (0.0-1.5) % Neut # (Auto) (1.4-5.7) K/uL Lymph # (Auto) (0.6-2.4) K/uL Dickinson # (Auto) (0.0-0.8) K/uL Eos # (Auto) (0.0-0.7) K/uL Baso # (Auto) (0.0-0.1) K/uL Nucleated RBC % /100WBC Nucleated RBCs # K/uL INR Sodium (136-145) mmol/L Potassium (3.5-5.1) mmol/L Chloride (98-107) mmol/L Carbon Dioxide (21.0-32.0) mmol/L BUN (7.0-18.0) mg/dL Creatinine (0.6-1.0) mg/dL Est Cr Clr Drug Dosing mL/min Estimated GFR (MDRD) ml/min Glucose (74-106) mg/dL Calcium (8.5-10.1) mg/dL Total Bilirubin (0.2-1.0) mg/dL AST (15-37) IU/L ALT (14-63) IU/L Alkaline Phosphatase (46-116) U/L Troponin I (0.000-0.056) ng/mL B-Natriuretic Peptide 273 H (<100) PG/ML Total Protein (6.4-8.2) g/dL Albumin (3.4-5.0) g/dL Globulin (2.6-4.0) g/dL Albumin/Globulin Ratio (0.9-1.6) Urine Color YELLOW Urine Appearance HAZY Urine pH 5.0 (5.0-8.0) Ur Specific [place] 1.025 (1.001-1.035) Urine Protein NEGATIVE (NEGATIVE) mg/dL Urine Glucose (UA) NEGATIVE (NEGATIVE) mg/dL Urine Ketones NEGATIVE (NEGATIVE) mg/dL Urine Occult Blood TRACE-INTACT H (NEGATIVE) Urine Nitrite POSITIVE H (NEGATIVE) Urine Bilirubin NEGATIVE (NEGATIVE) Urine Urobilinogen 0.2 (<2.0) EU/dL Ur Leukocyte Esterase NEGATIVE (NEGATIVE) Urine RBC 0-2 (0-2/HPF) Urine WBC 1-3 (0-5/HPF) Ur Epithelial Cells FEW (NONE-FEW) Urine Bacteria 2+ H (NEGATIVE) Urine Mucus LIGHT (NONE-MOD) Meds: Medications Generic Name Dose Route Start Last Admin Trade Name Freq PRN Reason Stop Dose Admin Sodium Chloride 500 mls @ 999 mls/hr 04/09/19 16:15 04/09/19 16:49 Normal Saline IV 999 mls/hr STAT SITA Administration Sodium Chloride 10 ml 04/09/19 15:41 Saline Flush FLUSH ASDIRECTED PRN Keep Vein Open Sodium Chloride 2.5 ml 04/09/19 15:41 Saline Flush FLUSH ASDIRECTED PRN Keep Vein Open Discontinued Medications Generic Name Dose Route Start Last Admin Trade Name Freq PRN Reason Stop Dose Admin Diltiazem HCl 10 mg 04/09/19 16:40 04/09/19 17:03 Diltiazem IVPUSH 04/09/19 16:41 10 mg ONETIME ONE Administration Departure - Departure Time of Disposition: 17:40 Disposition: Home, Self-Care 01 Condition: Good Clinical Impression: UTI (urinary tract infection), Generalized weakness - Discharge Information Referrals: PCP,Unknown [Primary Care Provider] - Forms: ED Department Discharge Additional Instructions: The following information is given to patients seen in the emergency department who are being discharged to home. This information is to outline your options for follow-up care. We provide all patients seen in our emergency department with a follow-up referral. The need for follow-up, as well as the timing and circumstances, are variable depending upon the specifics of your emergency department visit. If you don't have a primary care physician on staff, we will provide you with a referral. We always advise you to contact your personal physician following an emergency department visit to inform them of the circumstance of the visit and for follow-up with them and/or the need for any referrals to a consulting specialist. The emergency department will also refer you to a specialist when appropriate. This referral assures that you have the opportunity for follow-up care with a specialist. All of these measure are taken in an effort to provide you with optimal care, which includes your follow-up. Under all circumstances we always encourage you to contact your private physician who remains a resource for coordinating your care. When calling for follow-up care, please make the office aware that this follow-up is from your recent emergency room visit. If for any reason you are refused follow-up, please contact the [facility] Emergency Department at and asked to speak to the emergency department charge nurse. [facility] [address] [place] [id number] [address] Drink plenty of fluids and take antibiotic as directed. Follow up with primary care provider Return to ED as needed as discussed - My Orders Last 24 Hours: My Active Orders 04/09/19 15:41 EKG Documentation Completion [RC] STAT Sodium Chloride 0.9% [Saline Flush] 10 ml FLUSH ASDIRECTED PRN Sodium Chloride 0.9% [Saline Flush] 2.5 ml FLUSH ASDIRECTED PRN Saline Lock Insert [OM.PC] Stat 04/09/19 16:15 Sodium Chloride 0.9% [Normal Saline] 500 ml IV STAT 04/09/19 16:40 CULTURE URINE [RM] Stat 04/09/19 17:09 CULTURE BLOOD [BC] Stat CULTURE BLOOD [BC] Stat LACTATE WITH REFLEX [BG] Stat Blood Culture x2 Reflex Set [OM.PC] Stat - Assessment/Plan Last 24 Hours: My Active Orders 04/09/19 15:41 EKG Documentation Completion [RC] STAT Sodium Chloride 0.9% [Saline Flush] 10 ml FLUSH ASDIRECTED PRN Sodium Chloride 0.9% [Saline Flush] 2.5 ml FLUSH ASDIRECTED PRN Saline Lock Insert [OM.PC] Stat 04/09/19 16:15 Sodium Chloride 0.9% [Normal Saline] 500 ml IV STAT 04/09/19 16:40 CULTURE URINE [RM] Stat 04/09/19 17:09 CULTURE BLOOD [BC] Stat CULTURE BLOOD [BC] Stat LACTATE WITH REFLEX [BG] Stat Blood Culture x2 Reflex Set [OM.PC] Stat
[2019-04-09] MEDS ORDERED: Sodium Chloride 0.9% 500 ML IV SCH (16:15)
[2019-04-09] MEDS ORDERED: Diltiazem 25 MG/5 ML SDV IVPUSH ONE (16:40)
[2019-04-09 16:42] LABS: BLOOD UREA NITROGEN,BUN 19 mg/dL (7.0-18.0); CARBON DIOXIDE,CO2 27.1 mmol/L (21.0-32.0); CHLORIDE,CL 103 mmol/L (98-107); GLUCOSE RANDOM 138 mg/dL (74-106); POTASSIUM,K 3.9 mmol/L (3.5-5.1); SODIUM,NA 138 mmol/L (136-145)
--- NOTE | 2019-04-09 16:54 | CR ---
INDICATION: Pain and shortness of breath TECHNIQUE: Chest 1 view. COMPARISON: None FINDINGS: Cardiovascular and mediastinum: Heart size and vasculature are normal in caliber and appearance. Mediastinum is within normal limits. Lungs and pleural space: Lungs are clear. No sign of infiltrate or mass. No sign of pleural effusion. No pneumothorax. Bones and soft tissues: Bilateral shoulder arthroplasties. IMPRESSION: Unremarkable chest. Dictated by Ferdinand Nair MD @ 04/09/2019 4:52:21 PM Dictated by: Ferdinand Nair MD @ 04/09/2019 16:52:24 (Electronically Signed)
== END 2019-04-09 18:34 | disposition home or self-care (01) ==
LOC: MW.ED 15:34
DX: N39.0 Urinary tract infection, site not specified (principal); M62.81 Muscle weakness (generalized); Z88.8 Allergy status to other drugs, medicaments and biological substances; Z79.01 Long term (current) use of anticoagulants; Z79.899 Other long term (current) drug therapy; Z91.048 Other nonmedicinal substance allergy status; Z98.890 Other specified postprocedural states; Z90.49 Acquired absence of other specified parts of digestive tract; Z90.710 Acquired absence of both cervix and uterus
CPT/HCPCS: 36415; 71045; 80053; 81001; 83605; 83880; 84484; 85025; 85610; 87040; 87086; 93005; 96361; 96374; 99285; J3490; J7040; 87077; 87088; 87186

== ENCOUNTER 2019-10-19 12:43 | Emergency (ER) | payer MEDICARE, BC, OTHER ==
[2019-10-19] MEDS ORDERED: traMADol 50 MG Tab PO ONE (13:11)
--- NOTE | 2019-10-19 13:43 | EDM.PDOC ---
ED HPI GENERAL MEDICAL PROBLEM - General Chief Complaint: Lower Extremity Injury/Pain Stated Complaint: BACK/LEG PAIN Time Seen by Provider: 10/19/19 12:46 Source of Information: Reports: Patient History Limitations: Reports: No Limitations - History of Present Illness INITIAL COMMENTS - FREE TEXT/NARRATIVE: HISTORY AND PHYSICAL: History of present illness: Patient is a 74-year-old female who presents to the ED today via EMS with concern of exacerbation of low back pain. Patient states she has had chronic low back pain and has had to have multiple injections in the past. Patient states she has had issues with right sciatic nerve pain and is also had to have injections for this. Patient states that she is having the right sciatic nerve pain again today and has been having this going for the past couple days. Patient denies any trauma or injury to her back. Patient states that she is having a harder time getting around her house due to the pain. Patient states per her baseline she uses a walker and a wheelchair to get around her house and this morning was able to use the walker to get to the bathroom but had pain with doing so. Patient denies any saddle anesthesia or loss/retention of bowel/ bladder function. Patient denies fever, chills, chest pain, shortness of breath, or cough. Denies headache, neck stiff ness, change in vision, syncope, or near syncope. Denies nausea, vomiting, abdominal pain, diarrhea, constipation, or dysuria. Has not noted any blood in urine or stool. Patient has been eating and drinking appropriately. Review of systems: As per history of present illness and below otherwise all systems reviewed and negative. Past medical history: As per history of present illness and as reviewed below otherwise noncontributory. Surgical history: As per history of present illness and as reviewed below otherwise noncontributory. Social history: See social history for further information Family history: As per history of present illness and as reviewed below otherwise noncontributory. Physical exam: General: Patient is alert, oriented, and in no acute distress. Patient sitting comfortably on exam table. HEENT: Atraumatic, normocephalic, pupils equal and reactive bilaterally, negative for conjunctival pallor or scleral icterus, mucous membranes moist, TMs normal bilaterally, throat clear, neck supple, nontender, trachea midline. No drooling or trismus noted. No meningeal signs. No hot potato voice noted. Lungs: Clear to auscultation, breath sounds equal bilaterally, chest nontender. Heart: S1S2, regular rate and rhythm without overt murmur Abdomen: Soft, nondistended, nontender. Negative for masses or hepatosplenomegaly. Negative for costovertebral tenderness. Pelvis: Stable nontender. Genitourinary: Deferred. Rectal: Deferred. Skin: Intact, warm, dry. No lesions or rashes noted. Extremities: No obvious deformity of the complete spine. No step-offs, crepitus to palpation of the complete spine. Patient does have mild pain with palpation of the lumbar spine and pain with palpation over the right SI joint. SLR intact but limited due to pain. Otherwise, atraumatic, negative for cords or calf pain. Neurovascular unremarkable. Neuro: Awake, alert, oriented. Cranial nerves II through XII unremarkable. Cerebellum unremarkable. Motor and sensory unremarkable throughout. Exam nonfocal. Notes: Patient expresses improvement of symptoms today in the ED. Patient states she does have an appointment with her primary care provider this next week for her back. Patient states she does have tramadol available to her at home and will use this for pain management. Discussed the importance for follow-up with a primary care provider. Voices understanding and is agreeable to plan of care. Denies any further questions or concerns at this time. Diagnostics: Lumbar CT Therapeutics: Tramadol Prescription: None Impression: Acute on chronic low back pain Plan: 1. The medication you received today does cause drowsiness, so do not drive for the remaining day. 2. When resting please lay on a flat firm surface. Limit your mobility to prevent muscle stiffness. Get up to ambulate/move around/gentle stretching multiple times throughout the day. May alternate heat and ice to painful areas. 3. Tylenol as needed for back pain. Otherwise, take tramadol as directed. Tramadol, this medication may cause drowsiness, so do not take it while driving or needing to be functioning outside of the home. 4. Follow-up with your primary care provider as scheduled and as discussed. Return to the ED as needed and as discussed. Definitive disposition and diagnosis as appropriate pending reevaluation and review of above. - Related Data Allergies Allergy/AdvReac Type Severity Reaction Status Date / Time amoxicillin Allergy Rash Verified 10/19/19 12:50 cephalexin monohydrate Allergy Rash Verified 10/19/19 12:50 [From Keflex] Penicillins Allergy Rash Verified 10/19/19 12:50 rofecoxib [From Vioxx] Allergy Rash Verified 10/19/19 12:50 tetanus toxoid, adsorbed Allergy Rash Verified 10/19/19 12:50 valacyclovir HCl Allergy Rash Verified 10/19/19 12:50 [From Valtrex] wool Allergy Rash Verified 10/19/19 12:50 ferlacit Allergy Severe Hypotension Uncoded 10/19/19 12:50 Avalox Allergy Rash Uncoded 10/19/19 12:50 Bextra Allergy Rash Uncoded 10/19/19 12:50 celebrex Allergy Rash Uncoded 10/19/19 12:50 macrobid Allergy Rash Uncoded 10/19/19 12:50 plastic tape Allergy Rash Uncoded 10/19/19 12:50 Zofran Allergy Rash Uncoded 10/19/19 12:50 Home Meds: Home Meds Bumetanide [Bumex] 1 mg PO DAILY 04/12/19 [History] Ferrous Sulfate 325 mg PO TID 04/12/19 [History] Gabapentin [Neurontin] 300 mg PO TID 04/12/19 [History] Latanoprost/Pf [Latanoprost 0.005% Eye Drop] 7.5 ml OP DAILY 04/12/19 [History] Metoprolol Succinate 100 mg PO DAILY 04/12/19 [History] allopurinoL [Zyloprim] 150 mg PO DAILY 04/12/19 [History] Acetaminophen [Tylenol] 650 mg PO Q6H PRN tablet 04/16/19 [Rx] Potassium Chloride meq PO DAILY 10/19/19 [History] Warfarin Sodium [Coumadin] 1 mg PO ASDIRECTED 10/19/19 [History] Warfarin Sodium [Coumadin] 6 mg PO ASDIRECTED 10/19/19 [History] diphenhydrAMINE [Benadryl] 50 mg PO TID 10/19/19 [History] metOLazone [Metolazone] 2.5 mg PO ASDIRECTED 10/19/19 [History] rOPINIRole [Requip] 3 mg PO TID 10/19/19 [History] traMADol [Ultram] 100 mg PO ASDIRECTED PRN 10/19/19 [History] Past Medical History HEENT History: Reports: Cataract, Impaired Vision 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 Cardiovascular History: Reports: Afib, Angina, Heart Failure Respiratory History: Reports: Bronchitis, Recurrent, SOB Genitourinary History: Reports: Pyelonephritis, Urinary Incontinence Musculoskeletal History: Reports: Fibromyalgia, Osteoarthritis, Osteoporosis, Other (See Below) Other Musculoskeletal History: MS more than 50 years Neurological History: Reports: None, MS Psychiatric History: Reports: None Endocrine/Metabolic History: Reports: Obesity/BMI 30+ Hematologic History: Reports: Anemia Immunologic History: Reports: None Oncologic (Cancer) History: Reports: Malignant Melanoma Dermatologic History: Reports: Other (See Below) Other Dermatologic History: melanoma to top of head - Infectious Disease History Infectious Disease History: Reports: Chicken Pox, Measles, Mumps - Past Surgical History HEENT Surgical History: Reports: Cataract Surgery, Tonsillectomy Cardiovascular Surgical History: Reports: Other (See Below) Other Cardiovascular Surgeries/Procedures: angiogram without stents Respiratory Surgical History: Reports: Other (See Below) Other Respiratory Surgeries/Procedures: bronchoscopy February 2019 GI Surgical History: Reports: Appendectomy, Cholecystectomy, Colonoscopy, Other (See Below) Other GI Surgeries/Procedures: gastric bypass surgery Female Surgical History: Reports: Hysterectomy, Other (See Below) Other Female Surgeries/Procedures: bladder suspension Neurological Surgical History: Reports: None Musculoskeletal Surgical History: Reports: Knee Replacement, Shoulder Replacement, Other (See Below) Other Musculoskeletal Surgeries/Procedures:: left femur surgery Dermatological Surgical History: Reports: None Social & Family History - Family History Family Medical History: Noncontributory - Tobacco Use Smoking Status *Q: Never Smoker - Caffeine Use Caffeine Use: Reports: Tea - Recreational Drug Use Recreational Drug Use: No Review of Systems - Review of Systems Review Of Systems: Comprehensive ROS is negative, except as noted in HPI. ED EXAM, GENERAL - Physical Exam Exam: See Below (see dictation) Course - Vital Signs Last Recorded V/S: Last Vital Signs Temp 95.5 F L 10/19/19 12:50 Pulse 94 10/19/19 12:50 Resp 17 10/19/19 12:50 BP 116/72 10/19/19 12:50 Pulse Ox 98 10/19/19 12:50 - Orders/Labs/Meds Meds: Medications Discontinued Medications Generic Name Dose Route Start Last Admin Trade Name Freq PRN Reason Stop Dose Admin Tramadol HCl 50 mg 10/19/19 13:11 10/19/19 13:18 Ultram PO 10/19/19 13:12 50 mg ONETIME ONE Administration Departure - Departure Time of Disposition: 14:25 Disposition: Home, Self-Care 01 Clinical Impression: Acute exacerbation of chronic low back pain - Discharge Information Referrals: Jen Penn DO [Primary Care Provider] - Forms: ED Department Discharge Additional Instructions: The following information is given to patients seen in the emergency department who are being discharged to home. This information is to outline your options for follow-up care. We provide all patients seen in our emergency department with a follow-up referral. The need for follow-up, as well as the timing and circumstances, are variable depending upon the specifics of your emergency department visit. If you don't have a primary care physician on staff, we will provide you with a referral. We always advise you to contact your personal physician following an emergency department visit to inform them of the circumstance of the visit and for follow-up with them and/or the need for any referrals to a consulting specialist. The emergency department will also refer you to a specialist when appropriate. This referral assures that you have the opportunity for follow-up care with a specialist. All of these measure are taken in an effort to provide you with optimal care, which includes your follow-up. Under all circumstances we always encourage you to contact your private physician who remains a resource for coordinating your care. When calling for follow-up care, please make the office aware that this follow-up is from your recent emergency room visit. If for any reason you are refused follow-up, please contact the [facility] Emergency Department at and asked to speak to the emergency department charge nurse. [facility] [address] [place] [id number] [address] 1. The medication you received today does cause drowsiness, so do not drive for the remaining day. 2. When resting please lay on a flat firm surface. Limit your mobility to prevent muscle stiffness. Get up to ambulate/move around/gentle stretching multiple times throughout the day. May alternate heat and ice to painful areas. 3. Tylenol as needed for back pain. Otherwise, take tramadol as directed. Tramadol, this medication may cause drowsiness, so do not take it while driving or needing to be functioning outside of the home. 4. Follow-up with your primary care provider as scheduled and as discussed. Return to the ED as needed and as discussed. Sepsis Event Note - Evaluation Sepsis Screening Result: No Definite Risk - Focused Exam Vital Signs: Vital Signs Temp Pulse Resp BP Pulse Ox 10/19/19 12:50 95.5 F L 94 17 116/72 98 Date Exam was Performed: 10/19/19 Time Exam was Performed: 14:23
--- NOTE | 2019-10-19 14:10 | CT ---
CT lumbar spine Technique: Multiple axial sections were obtained from above the T10 vertebral body inferiorly through the L5-S1 disc. Reconstructed sagittal and coronal images were obtained. Findings: T9-10: Disc space narrowing is noted with vacuum disc phenomena. Lucent lesion is seen within the right side of T10. This is most likely due to a hemangioma. No central canal stenosis is seen. Neural foramina that are seen appear to be patent. T10-11: Mild disc space narrowing is seen. There appears to be anterior fusion of osteophytes. No central canal stenosis is seen. Neural foramina appear to be patent. T11-12: Disc space narrowing and vacuum disc phenomena is seen. Posterior disc is preserved. No central canal stenosis is seen. Mild neural foraminal stenosis is noted on the left side. Right neural foramen is patent T12-L1: Posterior disc is preserved. No central canal stenosis or neural foraminal stenosis is seen. L1-2: Posterior disc is preserved. Fairly severe degenerative apophyseal change is noted. No central canal stenosis or neural foraminal stenosis is seen. L2-3: Posterior disc maintains concave margin. No central canal stenosis is seen. Fairly severe degenerative apophyseal change is noted. Neural foramina are felt to be patent with the nerve roots exit. L3-4: Slight circumferential disc bulge is noted. Vacuum disc phenomena is seen. Severe degenerative apophyseal change is noted with thickening of the ligamentum flavum. Findings cause mild to moderate central canal stenosis. Neural foramina appear to be patent where the nerve roots exit. L4-5: Endplate concavity is noted of L5. Posterior disc space narrowing is noted. Vacuum disc phenomena is noted. Severe degenerative apophyseal change is noted. Findings cause moderate to severe central canal stenosis. Degenerative apophyseal change causes mild spondylolisthesis at L4-5 measuring about 7 mm. Neural foramina appear narrowed on both sides. L5-S1: Severe degenerative apophyseal change is noted. Mild central canal stenosis is seen. Bilateral neural foraminal stenosis is seen. No acute fracture is seen. Impression: 1. Diffuse degenerative change as noted above. Diagnostic code #3 This report was dictated in MDT
== END 2019-10-19 14:56 | disposition home or self-care (01) ==
LOC: MW.ED 12:43
DX: M54.5 Low back pain (principal); I50.9 Heart failure, unspecified; I48.91 Unspecified atrial fibrillation; M19.90 Unspecified osteoarthritis, unspecified site; E66.9 Obesity, unspecified; Z68.41 Body mass index [BMI] 40.0-44.9, adult; Z88.1 Allergy status to other antibiotic agents; Z88.8 Allergy status to other drugs, medicaments and biological substances; Z88.0 Allergy status to penicillin; Z88.7 Allergy status to serum and vaccine; Z91.048 Other nonmedicinal substance allergy status; Z79.899 Other long term (current) drug therapy
CPT/HCPCS: 72131; 99284; A9270

== ENCOUNTER 2019-12-04 15:08 | Emergency (ER) | payer MEDICARE, BC, OTHER ==
[2019-12-04] MEDS ORDERED: Sodium Chloride 0.9% 10 ML Syringe FLUSH PRN (15:25)
[2019-12-04] MEDS ORDERED: Sodium Chloride 0.9% 2.5 ML Syringe FLUSH PRN ×2 (15:25)
--- NOTE | 2019-12-04 15:29 | EDM.PDOC ---
ED HPI GENERAL MEDICAL PROBLEM - General Chief Complaint: Lower Extremity Injury/Pain Stated Complaint: LEG PAIN Time Seen by Provider: 12/04/19 15:10 - History of Present Illness INITIAL COMMENTS - FREE TEXT/NARRATIVE: History of present illness: [Patient presents with left leg swelling and pain with increased edema over the past day she denies any chest pain or shortness of breath but both legs are quite edematous and swollen. 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 Has prior history of congestive heart failure] Review of systems: As per history of present illness and below otherwise all systems reviewed and negative. Past medical history: As per history of present illness and as reviewed below otherwise noncontributory. Surgical history: As per history of present illness and as reviewed below otherwise noncontributory. Social history: No reported history of drug or alcohol abuse. Family history: As per history of present illness and as reviewed below otherwise noncontributory. Physical exam: HEENT: Atraumatic, normocephalic, pupils reactive, negative for conjunctival pallor or scleral icterus, mucous membranes moist, throat clear, neck supple, nontender, trachea midline. Lungs: Clear to auscultation, breath sounds equal bilaterally, chest nontender. Heart: S1S2, regular, negative for clicks, rubs, or JVD. Abdomen: Soft, nondistended, nontender. Negative for masses or hepatosplenomegaly. Negative for costovertebral tenderness. Pelvis: Stable nontender. Genitourinary: Deferred. Rectal: Deferred. Extremities: Atraumatic, negative for cords or calf pain. Neurovascular unremarkable. 2+ edema the legs are tense and swollen and tender the left is much worse than the right Neuro: Awake, alert, oriented. Cranial nerves II through XII unremarkable. Cerebellum unremarkable. Motor and sensory unremarkable throughout. Exam nonfocal. Diagnostics: [] Therapeutics: [] Impression: Lower extremity swelling [] Plan: Cardiovascular work-up with labs x-ray and an ultrasound of the lower extremity [] Definitive disposition and diagnosis as appropriate pending reevaluation and review of above. Left leg Pain Score (Numeric/FACES): 7 - Related Data Allergies Allergy/AdvReac Type Severity Reaction Status Date / Time amoxicillin Allergy Rash Verified 12/04/19 15:23 cephalexin monohydrate Allergy Rash Verified 12/04/19 15:23 [From Keflex] Penicillins Allergy Rash Verified 12/04/19 15:23 rofecoxib [From Vioxx] Allergy Rash Verified 12/04/19 15:23 tetanus toxoid, adsorbed Allergy Rash Verified 12/04/19 15:23 valacyclovir HCl Allergy Rash Verified 12/04/19 15:23 [From Valtrex] wool Allergy Rash Verified 12/04/19 15:23 ferlacit Allergy Severe Hypotension Uncoded 12/04/19 15:23 Avalox Allergy Rash Uncoded 12/04/19 15:23 Bextra Allergy Rash Uncoded 12/04/19 15:23 celebrex Allergy Rash Uncoded 12/04/19 15:23 macrobid Allergy Rash Uncoded 12/04/19 15:23 plastic tape Allergy Rash Uncoded 12/04/19 15:23 Zofran Allergy Rash Uncoded 12/04/19 15:23 Home Meds: Home Meds Bumetanide [Bumex] 1 mg PO DAILY 04/12/19 [History] Ferrous Sulfate 325 mg PO TID 04/12/19 [History] Gabapentin [Neurontin] 300 mg PO TID 04/12/19 [History] Latanoprost/Pf [Latanoprost 0.005% Eye Drop] 7.5 ml OP DAILY 04/12/19 [History] Metoprolol Succinate 100 mg PO DAILY 04/12/19 [History] allopurinoL [Zyloprim] 150 mg PO DAILY 04/12/19 [History] Acetaminophen [Tylenol] 650 mg PO Q6H PRN tablet 04/16/19 [Rx] Potassium Chloride 10 meq PO DAILY 10/19/19 [History] Warfarin Sodium [Coumadin] 1 mg PO ASDIRECTED 10/19/19 [History] Warfarin Sodium [Coumadin] 6 mg PO ASDIRECTED 10/19/19 [History] diphenhydrAMINE [Benadryl] 50 mg PO TID 10/19/19 [History] metOLazone [Metolazone] 2.5 mg PO ASDIRECTED 10/19/19 [History] rOPINIRole [Requip] 3 mg PO TID 03/24/20 [History] traMADol [Ultram] 100 mg PO ASDIRECTED PRN 10/19/19 [History] Past Medical History HEENT History: Reports: Cataract, Impaired Vision 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 Cardiovascular History: Reports: Afib, Angina, Heart Failure Respiratory History: Reports: Bronchitis, Recurrent, SOB Genitourinary History: Reports: Pyelonephritis, Urinary Incontinence Musculoskeletal History: Reports: Fibromyalgia, Osteoarthritis, Osteoporosis, Other (See Below) Other Musculoskeletal History: MS more than 50 years Neurological History: Reports: None, MS Psychiatric History: Reports: None Endocrine/Metabolic History: Reports: Obesity/BMI 30+ Hematologic History: Reports: Anemia Immunologic History: Reports: None Oncologic (Cancer) History: Reports: Malignant Melanoma Dermatologic History: Reports: Other (See Below) Other Dermatologic History: melanoma to top of head - Infectious Disease History Infectious Disease History: Reports: Chicken Pox, Measles, Mumps - Past Surgical History HEENT Surgical History: Reports: Cataract Surgery, Tonsillectomy Cardiovascular Surgical History: Reports: Other (See Below) Other Cardiovascular Surgeries/Procedures: angiogram without stents Respiratory Surgical History: Reports: Other (See Below) Other Respiratory Surgeries/Procedures: bronchoscopy February 2019 GI Surgical History: Reports: Appendectomy, Cholecystectomy, Colonoscopy, Other (See Below) Other GI Surgeries/Procedures: gastric bypass surgery Female Surgical History: Reports: Hysterectomy, Other (See Below) Other Female Surgeries/Procedures: bladder suspension Neurological Surgical History: Reports: None Musculoskeletal Surgical History: Reports: Knee Replacement, Shoulder Replacement, Other (See Below) Other Musculoskeletal Surgeries/Procedures:: left femur surgery Dermatological Surgical History: Reports: None Social & Family History - Family History Family Medical History: Noncontributory - Caffeine Use Caffeine Use: Reports: Tea Review of Systems - Review of Systems Review Of Systems: See Below ED EXAM, GENERAL - Physical Exam Exam: See Below Course - Vital Signs Text/Narrative:: Doppler ultrasound of the left lower extremities negative for DVT per radiology Last Recorded V/S: Last Vital Signs Temp 36.8 C 12/04/19 15:27 Pulse 99 12/04/19 15:27 Resp 18 12/04/19 15:27 BP 125/74 12/04/19 15:27 Pulse Ox 97 12/04/19 15:27 - Orders/Labs/Meds Orders: Active Orders 24 hr Category Date Time Status EKG Documentation Completion [RC] STAT Care 12/04/19 15:25 Active Sodium Chloride 0.9% [Saline Flush] Med 12/04/19 15:25 Active 10 ml FLUSH ASDIRECTED PRN Sodium Chloride 0.9% [Saline Flush] Med 12/04/19 15:25 Active 2.5 ml FLUSH ASDIRECTED PRN Sodium Chloride 0.9% [Saline Flush] Med 12/04/19 15:25 Active 2.5 ml FLUSH ASDIRECTED PRN Saline Lock Insert [OM.PC] Stat Oth 12/04/19 15:25 Ordered Medication Orders Sodium Chloride (Saline Flush) 2.5 ml FLUSH ASDIRECTED PRN PRN Reason: Keep Vein Open Sodium Chloride (Saline Flush) 10 ml FLUSH ASDIRECTED PRN PRN Reason: Keep Vein Open Sodium Chloride (Saline Flush) 2.5 ml FLUSH ASDIRECTED PRN PRN Reason: Keep Vein Open Labs: Laboratory Tests 12/04/19 12/04/19 12/04/19 Range/Units 15:37 15:37 15:37 WBC 6.59 (4.0-11.0) K/uL RBC 3.58 L (4.30-5.90) M/uL Hgb 9.0 L (12.0-16.0) g/dL Hct 30.6 L (36.0-46.0) % MCV 85.5 (80.0-98.0) fL MCH 25.1 L (27.0-32.0) pg MCHC 29.4 L (31.0-37.0) g/dL RDW Std Deviation 51.3 (28.0-62.0) fl RDW Coeff of Radha 16 H (11.0-15.0) % Plt Count 238 (150-400) K/uL MPV 10.10 (7.40-12.00) fL Neut % (Auto) 63.9 (48.0-80.0) % Lymph % (Auto) 25.6 (16.0-40.0) % Cocke % (Auto) 8.2 (0.0-15.0) % Eos % (Auto) 2.0 (0.0-7.0) % Baso % (Auto) 0.3 (0.0-1.5) % Neut # (Auto) 4.2 (1.4-5.7) K/uL Lymph # (Auto) 1.7 (0.6-2.4) K/uL Cocke # (Auto) 0.5 (0.0-0.8) K/uL Eos # (Auto) 0.1 (0.0-0.7) K/uL Baso # (Auto) 0.0 (0.0-0.1) K/uL Nucleated RBC % 0.0 /100WBC Nucleated RBCs # 0 K/uL INR 1.86 Sodium 137 (136-145) mmol/L Potassium 3.5 (3.5-5.1) mmol/L Chloride 100 (98-107) mmol/L Carbon Dioxide 28.2 (21.0-32.0) mmol/L BUN 20 H (7.0-18.0) mg/dL Creatinine 1.2 H (0.6-1.0) mg/dL Est Cr Clr Drug Dosing 41.21 mL/min Estimated GFR (MDRD) 44.2 ml/min Glucose 133 H (74-106) mg/dL Calcium 7.7 L (8.5-10.1) mg/dL Total Bilirubin 0.3 (0.2-1.0) mg/dL AST 24 (15-37) IU/L ALT 21 (14-63) IU/L Alkaline Phosphatase 124 H (46-116) U/L Troponin I < 0.050 (0.000-0.056) ng/mL B-Natriuretic Peptide (<100) PG/ML Total Protein 7.2 (6.4-8.2) g/dL Albumin 3.2 L (3.4-5.0) g/dL Globulin 4.0 (2.6-4.0) g/dL Albumin/Globulin Ratio 0.8 L (0.9-1.6) 12/04/19 Range/Units 15:37 WBC (4.0-11.0) K/uL RBC (4.30-5.90) M/uL Hgb (12.0-16.0) g/dL Hct (36.0-46.0) % MCV (80.0-98.0) fL MCH (27.0-32.0) pg MCHC (31.0-37.0) g/dL RDW Std Deviation (28.0-62.0) fl RDW Coeff of Radha (11.0-15.0) % Plt Count (150-400) K/uL MPV (7.40-12.00) fL Neut % (Auto) (48.0-80.0) % Lymph % (Auto) (16.0-40.0) % Cocke % (Auto) (0.0-15.0) % Eos % (Auto) (0.0-7.0) % Baso % (Auto) (0.0-1.5) % Neut # (Auto) (1.4-5.7) K/uL Lymph # (Auto) (0.6-2.4) K/uL Cocke # (Auto) (0.0-0.8) K/uL Eos # (Auto) (0.0-0.7) K/uL Baso # (Auto) (0.0-0.1) K/uL Nucleated RBC % /100WBC Nucleated RBCs # K/uL INR Sodium (136-145) mmol/L Potassium (3.5-5.1) mmol/L Chloride (98-107) mmol/L Carbon Dioxide (21.0-32.0) mmol/L BUN (7.0-18.0) mg/dL Creatinine (0.6-1.0) mg/dL Est Cr Clr Drug Dosing mL/min Estimated GFR (MDRD) ml/min Glucose (74-106) mg/dL Calcium (8.5-10.1) mg/dL Total Bilirubin (0.2-1.0) mg/dL AST (15-37) IU/L ALT (14-63) IU/L Alkaline Phosphatase (46-116) U/L Troponin I (0.000-0.056) ng/mL B-Natriuretic Peptide 174 H (<100) PG/ML Total Protein (6.4-8.2) g/dL Albumin (3.4-5.0) g/dL Globulin (2.6-4.0) g/dL Albumin/Globulin Ratio (0.9-1.6) Meds: Medications Generic Name Dose Route Start Last Admin Trade Name Freq PRN Reason Stop Dose Admin Sodium Chloride 2.5 ml 12/04/19 15:25 Saline Flush FLUSH ASDIRECTED PRN Keep Vein Open Sodium Chloride 10 ml 12/04/19 15:25 Saline Flush FLUSH ASDIRECTED PRN Keep Vein Open Sodium Chloride 2.5 ml 12/04/19 15:25 Saline Flush FLUSH ASDIRECTED PRN Keep Vein Open Discontinued Medications Generic Name Dose Route Start Last Admin Trade Name Marlon PRN Reason Stop Dose Admin Furosemide 40 mg 12/04/19 17:12 Lasix IVPUSH 12/04/19 17:13 NOW ONE Departure - Departure Time of Disposition: 17:29 Disposition: Home, Self-Care 01 Condition: Good Clinical Impression: Peripheral edema - Discharge Information *PRESCRIPTION DRUG MONITORING PROGRAM REVIEWED*: Not Applicable *COPY OF PRESCRIPTION DRUG MONITORING REPORT IN PATIENT FERNANDEZ: Not Applicable Instructions: Peripheral Edema Referrals: Jen Penn DO [Primary Care Provider] - Forms: ED Department Discharge Additional Instructions: The following information is given to patients seen in the emergency department who are being discharged to home. This information is to outline your options for follow-up care. We provide all patients seen in our emergency department with a follow-up referral. The need for follow-up, as well as the timing and circumstances, are variable depending upon the specifics of your emergency department visit. If you don't have a primary care physician on staff, we will provide you with a referral. We always advise you to contact your personal physician following an emergency department visit to inform them of the circumstance of the visit and for follow-up with them and/or the need for any referrals to a consulting specialist. The emergency department will also refer you to a specialist when appropriate. This referral assures that you have the opportunity for follow-up care with a specialist. All of these measure are taken in an effort to provide you with optimal care, which includes your follow-up. Under all circumstances we always encourage you to contact your private physician who remains a resource for coordinating your care. When calling for follow-up care, please make the office aware that this follow-up is from your recent emergency room visit. If for any reason you are refused follow-up, please contact the Emergency Department at and asked to speak to the emergency department charge nurse. Sepsis Event Note - Focused Exam Vital Signs: Vital Signs Temp Pulse Resp BP Pulse Ox 12/04/19 15:27 36.8 C 99 18 125/74 97 Date Exam was Performed: 12/04/19 Time Exam was Performed: 17:29 - My Orders Last 24 Hours: My Active Orders 12/04/19 15:25 EKG Documentation Completion [RC] STAT Sodium Chloride 0.9% [Saline Flush] 10 ml FLUSH ASDIRECTED PRN Sodium Chloride 0.9% [Saline Flush] 2.5 ml FLUSH ASDIRECTED PRN Sodium Chloride 0.9% [Saline Flush] 2.5 ml FLUSH ASDIRECTED PRN Saline Lock Insert [OM.PC] Stat - Assessment/Plan Last 24 Hours: My Active Orders 12/04/19 15:25 EKG Documentation Completion [RC] STAT Sodium Chloride 0.9% [Saline Flush] 10 ml FLUSH ASDIRECTED PRN Sodium Chloride 0.9% [Saline Flush] 2.5 ml FLUSH ASDIRECTED PRN Sodium Chloride 0.9% [Saline Flush] 2.5 ml FLUSH ASDIRECTED PRN Saline Lock Insert [OM.PC] Stat
[2019-12-04 16:05] LABS: BLOOD UREA NITROGEN,BUN 20 mg/dL (7.0-18.0); CARBON DIOXIDE,CO2 28.2 mmol/L (21.0-32.0); CHLORIDE,CL 100 mmol/L (98-107); GLUCOSE RANDOM 133 mg/dL (74-106); POTASSIUM,K 3.5 mmol/L (3.5-5.1); SODIUM,NA 137 mmol/L (136-145)
--- NOTE | 2019-12-04 16:06 | CR ---
Chest: Portable view of the chest was obtained. Comparison: Prior chest x-ray of 04/09/19. Heart size and mediastinum are normal. Bilateral shoulder prosthesis are seen. Lungs are clear no acute parenchymal change. Surgical clips are seen within the left upper abdomen. Impression: 1. Nothing acute is appreciated on portable chest x-ray. Diagnostic code #2 This report was dictated in MDT
--- NOTE | 2019-12-04 16:57 | US ---
Left lower extremity deep venous ultrasound: Duplex and color Doppler evaluation was obtained of the left common femoral, proximal greater saphenous, superficial femoral, popliteal, posterior tibial and peroneal veins. Comparison: Previous left lower extremity deep venous ultrasound of 04/26/19. Findings: Subcutaneous edema seen within the popliteal fossa. Lymph node is noted within the left groin believed to be within normal limits. Peroneal veins and popliteal vein are not optimally seen but show no evidence of definite venous thrombosis. Other vein show normal compression and Doppler blood flow. Impression: 1. Subcutaneous edema within the left popliteal fossa. 2. No evidence of deep venous thrombosis is seen within the left lower extremity. Diagnostic code #2 This report was dictated in MDT
[2019-12-04] MEDS ORDERED: Furosemide 40 MG/4 ML VIAL IVPUSH ONE (17:12)
== END 2019-12-04 17:56 | disposition home or self-care (01) ==
LOC: MW.ED 15:08
DX: R60.0 Localized edema (principal); I48.91 Unspecified atrial fibrillation; I50.9 Heart failure, unspecified; G35 Multiple sclerosis; M19.90 Unspecified osteoarthritis, unspecified site; E66.9 Obesity, unspecified; Z68.45 Body mass index [BMI] 70 or greater, adult; Z88.1 Allergy status to other antibiotic agents; Z88.0 Allergy status to penicillin; Z88.8 Allergy status to other drugs, medicaments and biological substances; Z91.048 Other nonmedicinal substance allergy status
CPT/HCPCS: 36415; 71045; 80053; 83880; 84484; 85025; 85610; 93005; 93971; 96374; 99284; J1940; 99283

== ENCOUNTER 2020-01-01 15:53 | Emergency (ER) | payer MEDICARE, BC, OTHER ==
--- NOTE | 2020-01-01 16:08 | EDM.PDOC ---
ED HPI GENERAL MEDICAL PROBLEM - General Chief Complaint: Trauma Stated Complaint: FELL Time Seen by Provider: 01/01/20 15:53 Source of Information: Reports: Patient History Limitations: Reports: No Limitations - History of Present Illness INITIAL COMMENTS - FREE TEXT/NARRATIVE: HISTORY AND PHYSICAL: Trauma Alert was called upon patient arrival due to fall and being on Coumadin. Dr Bonds was directly involved in this case. History of present illness: Patient is a 74-year-old female who presents to the emergency room with complaints of fall. Patient typically uses a wheelchair and had brought herself near the sink to start washing dishes. As she was scooting forward she moved too far on the seat and had fallen from a seated position onto her left hip. Her left shoulder had hit the cupboard as she fell onto her bottom. She denies hitting her head or having any loss of consciousness. She did not have any assistance to help her up so she called EMS who stated she had sat for approximately 15 to 30 minutes while they arrived on scene. Patient voices concern as approximately a year ago she did have a compound left femur fracture which did require surgery and plate placement. Patient reports that just prior to falling she had felt well and did not have any symptoms. Patient denies any fever, chills, headache, change in vision, syncope or near syncope. Denies any chest pain, back pain, shortness of breath or cough. Denies any abdominal pain, nausea, vomiting, diarrhea, constipation or dysuria. Has not noted any blood in urine or stool. Patient has been eating and drinking appropriately. Review of systems: As per history of present illness and below otherwise all systems reviewed and negative. Past medical history: As per history of present illness and as reviewed below otherwise noncontributory. Surgical history: As per history of present illness and as reviewed below otherwise noncontributory. Social history: See social history for further information Family history: As per history of present illness and as reviewed below otherwise noncontributory. Physical exam: General: Well-developed and well-nourished 74-year-old female. Alert and oriented -answering all questions appropriately. Nontoxic-appearing and in no acute distress. HEENT: No obvious injury is noted, nontender, no crepitus, normocephalic, pupils equal and reactive bilaterally, negative for conjunctival pallor or scleral icterus, mucous membranes moist, TMs normal bilaterally, throat clear, neck supple, nontender, trachea midline. No drooling or trismus noted. No meningeal signs. No hot potato voice noted. Lungs: Clear to auscultation, breath sounds equal bilaterally, chest nontender. Heart: S1S2, regular rate and rhythm without overt murmur Abdomen: Soft, nondistended, nontender. Negative for masses or hepatosplenomegaly. Negative for costovertebral tenderness. Pelvis: Stable, mild tenderness with palpation of the left hip shoots to mid thigh.. Skin: Small skin tear to left elbow. Various bruising noted to upper and lower extremities. Intact, warm, dry. No lesions or rashes noted. Extremities: Moves all extremities per self without deficits, she does have pain with range of motion of the left shoulder and at the left hip. Tender at both sites as well. No external or internal rotation is noted of the left lower extremity. Negative foot drop. Negative for cords or calf pain. Neurovascular unremarkable. C-spine/Back: No pinpoint vertebral tenderness upon palpation. No crepitus, step -offs or obvious deformities. Equal strength of bilateral lower extremities with foot push and pull. Denies any urinary or fecal incontinence. Denies any numbness, tingling or saddle paresthesia. Neuro: Awake, alert, oriented. Cranial nerves II through XII unremarkable. Cerebellum unremarkable. Motor and sensory unremarkable throughout. Exam nonfocal. Notes: Patient has known atrial fibrillation, EKG that was done at 1557 shows atrial fib with a rate of 82 and a left bundle branch block. This was compared with her previous EKG on 12/04/2019, no changes. CBC does show some chronic anemia today's hemoglobin was 8.9, a month ago it was 9.0 and hematocrit of 29.9 and a month ago 30.6. BUN and creatinine are slightly elevated, this does also appear chronic. X-ray of the left femur shows incomplete healed distal femur fracture which is held in place with plate and screws, orthopedic hardware remains in place. Knee prosthesis noted. Nothing acute is appreciated. Chest x-ray is unremarkable. X-ray of the left shoulder shows a prosthesis with components being aligned. The bony structures are intact without any obvious acute fracture. Pelvic x-ray shows osteoporosis with mild degenerative changes. No acute findings are noted. Patient continues to be alert, oriented and answering questions appropriately. She states she feels comfortable to go home. We discussed signs and symptoms that would prompt her to return to the emergency room. Patient is nontoxic in appearance and appropriate for discharge. Supportive care measures were reviewed and discussed. Voices understanding and is agreeable to plan of care. Denies any further questions or concerns at this time. Diagnostics: CBC, CMP, troponin, EKG, PT/INR, 1 view chest, left shoulder, pelvis with left hip, left femur Therapeutics: Morphine, bacitracin Prescription: None Impression: Fall Left hip injury Left shoulder injury Anemia Plan: 1. X-rays of the shoulder, pelvis, hip and femur are within normal limits, no new fractures. Rest, ice, elevate the affected extremity. 2. Tylenol and/or Ibuprofen as needed for pain management. 3. Follow up with the Orthopedic provider as we discussed. Return to the ED as needed and as discussed. Definitive disposition and diagnosis as appropriate pending reevaluation and review of above. Onset: Today Left leg Pain Score (Numeric/FACES): 7 - Related Data Allergies Allergy/AdvReac Type Severity Reaction Status Date / Time amoxicillin Allergy Rash Verified 01/01/20 16:02 cephalexin monohydrate Allergy Rash Verified 01/01/20 16:02 [From Keflex] Penicillins Allergy Rash Verified 01/01/20 16:02 rofecoxib [From Vioxx] Allergy Rash Verified 01/01/20 16:02 tetanus toxoid, adsorbed Allergy Rash Verified 01/01/20 16:02 valacyclovir HCl Allergy Rash Verified 01/01/20 16:02 [From Valtrex] wool Allergy Rash Verified 01/01/20 16:02 ferlacit Allergy Severe Hypotension Uncoded 01/01/20 16:02 Avalox Allergy Rash Uncoded 01/01/20 16:02 Bextra Allergy Rash Uncoded 01/01/20 16:02 celebrex Allergy Rash Uncoded 01/01/20 16:02 macrobid Allergy Rash Uncoded 01/01/20 16:02 plastic tape Allergy Rash Uncoded 01/01/20 16:02 Zofran Allergy Rash Uncoded 01/01/20 16:02 Home Meds: Home Meds Bumetanide [Bumex] 1 mg PO DAILY 04/12/19 [History] Ferrous Sulfate 325 mg PO TID 04/12/19 [History] Gabapentin [Neurontin] 300 mg PO TID 04/12/19 [History] Latanoprost/Pf [Latanoprost 0.005% Eye Drop] 7.5 ml OP DAILY 04/12/19 [History] Metoprolol Succinate 100 mg PO DAILY 04/12/19 [History] allopurinoL [Zyloprim] 150 mg PO DAILY 04/12/19 [History] Acetaminophen [Tylenol] 650 mg PO Q6H PRN tablet 04/16/19 [Rx] Potassium Chloride 10 meq PO DAILY 10/19/19 [History] Warfarin Sodium [Coumadin] 1 mg PO ASDIRECTED 10/19/19 [History] Warfarin Sodium [Coumadin] 6 mg PO ASDIRECTED 10/19/19 [History] diphenhydrAMINE [Benadryl] 50 mg PO TID 10/19/19 [History] metOLazone [Metolazone] 2.5 mg PO ASDIRECTED 10/19/19 [History] rOPINIRole [Requip] 3 mg PO TID 10/19/19 [History] traMADol [Ultram] 100 mg PO ASDIRECTED PRN 10/19/19 [History] Past Medical History HEENT History: Reports: Cataract, Impaired Vision 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 Cardiovascular History: Reports: Afib, Angina, Heart Failure Respiratory History: Reports: Bronchitis, Recurrent, SOB Genitourinary History: Reports: Pyelonephritis, Urinary Incontinence Musculoskeletal History: Reports: Fibromyalgia, Osteoarthritis, Osteoporosis, Other (See Below) Other Musculoskeletal History: MS more than 50 years Neurological History: Reports: None, MS Psychiatric History: Reports: None Endocrine/Metabolic History: Reports: Obesity/BMI 30+ Hematologic History: Reports: Anemia Immunologic History: Reports: None Oncologic (Cancer) History: Reports: Malignant Melanoma Dermatologic History: Reports: Other (See Below) Other Dermatologic History: melanoma to top of head - Infectious Disease History Infectious Disease History: Reports: Chicken Pox, Measles, Mumps - Past Surgical History HEENT Surgical History: Reports: Cataract Surgery, Tonsillectomy Cardiovascular Surgical History: Reports: Other (See Below) Other Cardiovascular Surgeries/Procedures: angiogram without stents Respiratory Surgical History: Reports: Other (See Below) Other Respiratory Surgeries/Procedures: bronchoscopy February 2019 GI Surgical History: Reports: Appendectomy, Cholecystectomy, Colonoscopy, Other (See Below) Other GI Surgeries/Procedures: gastric bypass surgery Female Surgical History: Reports: Hysterectomy, Other (See Below) Other Female Surgeries/Procedures: bladder suspension Neurological Surgical History: Reports: None Musculoskeletal Surgical History: Reports: Knee Replacement, Shoulder Replacement, Other (See Below) Other Musculoskeletal Surgeries/Procedures:: left femur surgery Dermatological Surgical History: Reports: None Social & Family History - Family History Family Medical History: Noncontributory - Caffeine Use Caffeine Use: Reports: Tea Review of Systems - Review of Systems Review Of Systems: Comprehensive ROS is negative, except as noted in HPI. ED EXAM, GENERAL - Physical Exam Exam: See Below (See dictation) Course - Vital Signs Last Recorded V/S: Last Vital Signs Temp 98.4 F 01/01/20 16:35 Pulse 86 01/01/20 18:13 Resp 16 01/01/20 18:13 BP 137/59 L 01/01/20 18:13 Pulse Ox 96 01/01/20 18:13 - Orders/Labs/Meds Orders: Active Orders 24 hr Category Date Time Status EKG Documentation Completion [RC] STAT Care 01/01/20 15:55 Active Labs: Laboratory Tests 01/01/20 01/01/20 01/01/20 Range/Units 16:05 16:05 16:05 WBC 5.43 (4.0-11.0) K/uL RBC 3.54 L (4.30-5.90) M/uL Hgb 8.9 L (12.0-16.0) g/dL Hct 29.9 L (36.0-46.0) % MCV 84.5 (80.0-98.0) fL MCH 25.1 L (27.0-32.0) pg MCHC 29.8 L (31.0-37.0) g/dL RDW Std Deviation 52.5 (28.0-62.0) fl RDW Coeff of Radha 17 H (11.0-15.0) % Plt Count 218 (150-400) K/uL MPV 9.70 (7.40-12.00) fL Neut % (Auto) 61.7 (48.0-80.0) % Lymph % (Auto) 25.0 (16.0-40.0) % [place] % (Auto) 10.9 (0.0-15.0) % Eos % (Auto) 2.0 (0.0-7.0) % Baso % (Auto) 0.4 (0.0-1.5) % Neut # (Auto) 3.4 (1.4-5.7) K/uL Lymph # (Auto) 1.4 (0.6-2.4) K/uL [place] # (Auto) 0.6 (0.0-0.8) K/uL Eos # (Auto) 0.1 (0.0-0.7) K/uL Baso # (Auto) 0.0 (0.0-0.1) K/uL Nucleated RBC % 0.0 /100WBC Nucleated RBCs # 0 K/uL INR 2.10 Sodium 140 (136-145) mmol/L Potassium 3.5 (3.5-5.1) mmol/L Chloride 101 (98-107) mmol/L Carbon Dioxide 27.9 (21.0-32.0) mmol/L BUN 24 H (7.0-18.0) mg/dL Creatinine 1.3 H (0.6-1.0) mg/dL Est Cr Clr Drug Dosing 39.46 mL/min Estimated GFR (MDRD) 40.3 ml/min Glucose 129 H (74-106) mg/dL Calcium 8.1 L (8.5-10.1) mg/dL Total Bilirubin 0.4 (0.2-1.0) mg/dL AST 28 (15-37) IU/L ALT 16 (14-63) IU/L Alkaline Phosphatase 122 H (46-116) U/L Troponin I (0.000-0.056) ng/mL Total Protein 7.2 (6.4-8.2) g/dL Albumin 3.2 L (3.4-5.0) g/dL Globulin 4.0 (2.6-4.0) g/dL Albumin/Globulin Ratio 0.8 L (0.9-1.6) 01/01/20 Range/Units 16:05 WBC (4.0-11.0) K/uL RBC (4.30-5.90) M/uL Hgb (12.0-16.0) g/dL Hct (36.0-46.0) % MCV (80.0-98.0) fL MCH (27.0-32.0) pg MCHC (31.0-37.0) g/dL RDW Std Deviation (28.0-62.0) fl RDW Coeff of Radha (11.0-15.0) % Plt Count (150-400) K/uL MPV (7.40-12.00) fL Neut % (Auto) (48.0-80.0) % Lymph % (Auto) (16.0-40.0) % [place] % (Auto) (0.0-15.0) % Eos % (Auto) (0.0-7.0) % Baso % (Auto) (0.0-1.5) % Neut # (Auto) (1.4-5.7) K/uL Lymph # (Auto) (0.6-2.4) K/uL [place] # (Auto) (0.0-0.8) K/uL Eos # (Auto) (0.0-0.7) K/uL Baso # (Auto) (0.0-0.1) K/uL Nucleated RBC % /100WBC Nucleated RBCs # K/uL INR Sodium (136-145) mmol/L Potassium (3.5-5.1) mmol/L Chloride (98-107) mmol/L Carbon Dioxide (21.0-32.0) mmol/L BUN (7.0-18.0) mg/dL Creatinine (0.6-1.0) mg/dL Est Cr Clr Drug Dosing mL/min Estimated GFR (MDRD) ml/min Glucose (74-106) mg/dL Calcium (8.5-10.1) mg/dL Total Bilirubin (0.2-1.0) mg/dL AST (15-37) IU/L ALT (14-63) IU/L Alkaline Phosphatase (46-116) U/L Troponin I < 0.050 (0.000-0.056) ng/mL Total Protein (6.4-8.2) g/dL Albumin (3.4-5.0) g/dL Globulin (2.6-4.0) g/dL Albumin/Globulin Ratio (0.9-1.6) Meds: Medications Discontinued Medications Generic Name Dose Route Start Last Admin Trade Name Freq PRN Reason Stop Dose Admin Bacitracin 1 dose 01/01/20 16:21 01/01/20 16:32 Bacitracin Oint 1 Gm TOP 01/01/20 16:22 1 dose ONETIME ONE Administration Morphine Sulfate 2 mg 01/01/20 16:21 01/01/20 16:33 Morphine IVPUSH 01/01/20 16:22 2 mg ONETIME ONE Administration Departure - Departure Time of Disposition: 19:02 Disposition: Home, Self-Care 01 Clinical Impression: Fall Qualifiers: Encounter type: initial encounter Qualified Code(s): W19.XXXA - Unspecified fall, initial encounter Anemia Qualifiers: Anemia type: unspecified type Qualified Code(s): D64.9 - Anemia, unspecified Injury of left shoulder Qualifiers: Encounter type: initial encounter Qualified Code(s): S49.92XA - Unspecified injury of left shoulder and upper arm, initial encounter Injury of left hip Qualifiers: Encounter type: initial encounter Qualified Code(s): S79.912A - Unspecified injury of left hip, initial encounter - Discharge Information Referrals: Jen Penn DO [Primary Care Provider] - Forms: ED Department Discharge Additional Instructions: The following information is given to patients seen in the emergency department who are being discharged to home. This information is to outline your options for follow-up care. We provide all patients seen in our emergency department with a follow-up referral. The need for follow-up, as well as the timing and circumstances, are variable depending upon the specifics of your emergency department visit. If you don't have a primary care physician on staff, we will provide you with a referral. We always advise you to contact your personal physician following an emergency department visit to inform them of the circumstance of the visit and for follow-up with them and/or the need for any referrals to a consulting specialist. The emergency department will also refer you to a specialist when appropriate. This referral assures that you have the opportunity for follow-up care with a specialist. All of these measure are taken in an effort to provide you with optimal care, which includes your follow-up. Under all circumstances we always encourage you to contact your private physician who remains a resource for coordinating your care. When calling for follow-up care, please make the office aware that this follow-up is from your recent emergency room visit. If for any reason you are refused follow-up, please contact the [facility] Emergency Department at and asked to speak to the emergency department charge nurse. [facility] [address] [place] [address] [facility] [address] [place] [id number] 1. X-rays of the shoulder, pelvis, hip and femur are within normal limits, no new fractures. Rest, ice, elevate the affected extremity. 2. Tylenol and/or Ibuprofen as needed for pain management. 3. Follow up with the Orthopedic provider as we discussed. Return to the ED as needed and as discussed. Sepsis Event Note - Focused Exam Vital Signs: Vital Signs Temp Pulse Resp BP Pulse Ox 01/01/20 18:13 86 16 137/59 L 96 01/01/20 17:35 80 16 120/67 96 01/01/20 17:05 76 15 112/60 97 01/01/20 16:35 98.4 F 80 16 116/62 98 01/01/20 16:20 81 17 112/51 L 97 01/01/20 16:05 92 17 122/72 97 01/01/20 15:53 97.6 F 89 18 127/62 98 Date Exam was Performed: 01/01/20 Time Exam was Performed: 18:59 - My Orders Last 24 Hours: My Active Orders 01/01/20 15:55 EKG Documentation Completion [RC] STAT - Assessment/Plan Last 24 Hours: My Active Orders 01/01/20 15:55 EKG Documentation Completion [RC] STAT
--- NOTE | 2020-01-01 16:11 | PCM.SN.2 ---
- Free Text/Narrative Note: Patient was presented to be by the mid-level provider. I have personally independently seen and evaluated the patient at bedside and, if available, have spoken with the with the family. I agree with the history, physical, medical decision making, and plan of treatment as documented by the mid-level provider. I have performed the medical decision making for this patient, including assessing the results of all diagnostic testing and I have instructed the mid- level provider to document the results. In brief, this is a 74-year-old female with a past medical history of atrial fibrillation on warfarin, hypertension, congestive heart failure presenting with injuries after a fall. Patient was transferring around her wheelchair when she fell onto her left side. No head impact or loss of conscious. Arrives to the ER complaining of pain to the left hip and the left proximal humerus over the lateral aspect. Has some contusions to left upper extremity. CBC shows a stable chronic anemia. INR is therapeutic. Unchanged baseline renal insufficiency. Mild alkaline phosphatase elevation at 122. Obtained x- rays of left shoulder, chest, left femur, left hip. Twelve-lead EKG is nonischemic. No wounds to repair. Imaging studies are negative. Pain is well controlled. Plan to discharge home with outpatient primary care follow-up. Refer to the nurse practitioner's note for further information about the course.
[2020-01-01] MEDS ORDERED: Bacitracin Oint 1 GM U/D Packet TOP ONE (16:21)
[2020-01-01] MEDS ORDERED: Morphine 2 MG/ML Syringe IVPUSH ONE (16:21)
[2020-01-01 16:36] LABS: CARBON DIOXIDE,CO2 27.9 mmol/L (21.0-32.0); POTASSIUM,K 3.5 mmol/L (3.5-5.1)
--- NOTE | 2020-01-01 17:43 | CR ---
Chest: Portable view of the chest was obtained. Comparison: Prior chest x-ray of 12/04/19. Bilateral shoulder prosthesis are noted. Heart size and mediastinum are normal. Lungs are clear with no acute parenchymal change. Bony structures are grossly intact. Impression: 1. Nothing acute is seen on portable chest x-ray. Diagnostic code #1 This report was dictated in MDT
--- NOTE | 2020-01-01 17:44 | CR ---
Left shoulder: 3 views left shoulder were obtained. Comparison: No prior left shoulder study is available. Left shoulder prosthesis is seen. Components are aligned. Underlying bony structures are intact. Impression: 1. Left shoulder prosthesis. 2. Nothing acute is seen on left shoulder study. Diagnostic code #2 This report was dictated in MDT
--- NOTE | 2020-01-01 17:44 | CR ---
Left femur: AP and lateral views left femur were obtained. Comparison: Prior left femur study of 12/31/19. Previous fracture within the distal femur is noted. Alignment is stable from prior study. Fracture is incompletely healed. Orthopedic hardware remains in place. Knee prosthesis is noted. Impression: 1. Incompletely healed distal femur fracture held in place with plate and screws. 2. Knee prosthesis. 3. Nothing acute is appreciated. Diagnostic code #2 This report was dictated in MDT
--- NOTE | 2020-01-01 18:31 | CR ---
Pelvis: AP view of the pelvis was obtained. Comparison: No prior pelvis exam is available. Bony structures are osteoporotic. Mild degenerative change is seen within the lumbar spine and within the sacroiliac joints. No discrete fracture or other bony abnormality is appreciated. Impression: 1. Osteoporosis and mild degenerative change. 2. Nothing acute is definitely appreciated on AP pelvis study. Diagnostic code #2 This report was dictated in MDT
== END 2020-01-01 19:23 | disposition home or self-care (01) ==
LOC: MW.ED 15:53
DX: S49.92XA Unspecified injury of left shoulder and upper arm, initial encounter (principal); S79.912A Unspecified injury of left hip, initial encounter; D64.9 Anemia, unspecified; I50.9 Heart failure, unspecified; I48.91 Unspecified atrial fibrillation; E66.9 Obesity, unspecified; Z68.41 Body mass index [BMI] 40.0-44.9, adult; Z88.0 Allergy status to penicillin; Z88.7 Allergy status to serum and vaccine; Z91.048 Other nonmedicinal substance allergy status; Z88.1 Allergy status to other antibiotic agents; Z79.899 Other long term (current) drug therapy; V00.811A Fall from moving wheelchair (powered), initial encounter
CPT/HCPCS: 36415; 71045; 72170; 73030; 73552; 80053; 84484; 85025; 85610; 93005; 96374; 99284; J2270

== ENCOUNTER 2020-01-18 03:41 | Emergency (ER) | payer MEDICARE, BC, OTHER ==
[2020-01-18] MEDS ORDERED: Sodium Chloride 0.9% 10 ML Syringe FLUSH PRN (04:08)
[2020-01-18] MEDS ORDERED: Sodium Chloride 0.9% 2.5 ML Syringe FLUSH PRN (04:08)
[2020-01-18] MEDS ORDERED: Morphine 4 MG/ML Syringe IVPUSH ONE ×2 (04:10→06:04)
--- NOTE | 2020-01-18 04:12 | EDM.PDOC ---
ED HPI GENERAL MEDICAL PROBLEM - General Chief Complaint: Lower Extremity Injury/Pain Stated Complaint: EMS ARRIVAL Time Seen by Provider: 01/18/20 04:07 Source of Information: Reports: Patient History Limitations: Reports: No Limitations - History of Present Illness INITIAL COMMENTS - FREE TEXT/NARRATIVE: 74-year-old female with history of left femur fracture, CHF, Afib on Coumadin was BIBA for worsening pain in the left lower extremity for 1 week. Pain is described as a constant, severe, burning pain from the left hip and radiates to her knee, exacerbated with weight bearing. She notes increasing bruising and swelling over the last week, she takes hydrocodone 5/325 and tramadol as needed for pain, but she did not take them for 2 days. She only took 2 tabs of tylenol for her pain yesterday. Currently her pain is rated at 10/10, she chose not to take her pain meds and decided to come in. She denies fever, chills, SOB, chest pain, abdominal pain, new falls. She uses a walker for ambulation. She was seen at the clinic yesterday, her INR = 2.6 as tested yesterday. She was told to come in for IV diuresis if her symptoms continue to worsen. ROS: A 10-point review of systems, other than pertinent positives and negatives as stated per HPI, is otherwise negative PHYSICAL EXAM General: AOx4, GCS = 15, mild distress, obese HEENT: dry mucous membrane Neck: supple, no meningismus, no Kernig or Brudzinski Cardiac: Irregular rhythm, tachycardia, HR = 118. Respiratory: CTAB, no crackles or rales, no wheezing Abdomen: Soft, nontender, no rebound or guarding, nondistended, no pulsatile mass. Back: nontender Musculoskeletal: NVI distally, left thigh with ecchymosis and swelling, tender to palpation. DP +2 bilaterally. Neuro: No focal deficits Left Leg Pain Score (Numeric/FACES): 10 - Related Data Allergies Allergy/AdvReac Type Severity Reaction Status Date / Time amoxicillin Allergy Rash Verified 01/18/20 03:50 cephalexin monohydrate Allergy Rash Verified 01/18/20 03:50 [From Keflex] Penicillins Allergy Rash Verified 01/18/20 03:50 rofecoxib [From Vioxx] Allergy Rash Verified 01/18/20 03:50 tetanus toxoid, adsorbed Allergy Rash Verified 01/18/20 03:50 valacyclovir HCl Allergy Rash Verified 01/18/20 03:50 [From Valtrex] wool Allergy Rash Verified 01/18/20 03:50 ferlacit Allergy Severe Hypotension Uncoded 01/18/20 03:50 Avalox Allergy Rash Uncoded 01/18/20 03:50 Bextra Allergy Rash Uncoded 01/18/20 03:50 celebrex Allergy Rash Uncoded 01/18/20 03:50 macrobid Allergy Rash Uncoded 01/18/20 03:50 plastic tape Allergy Rash Uncoded 01/18/20 03:50 Zofran Allergy Rash Uncoded 01/18/20 03:50 Home Meds: Home Meds Bumetanide [Bumex] 2 mg PO BID 04/12/19 [History] Gabapentin [Neurontin] 300 mg PO TID 04/12/19 [History] Latanoprost/Pf [Latanoprost 0.005% Eye Drop] 7.5 ml OP DAILY 04/12/19 [History] Metoprolol Succinate 100 mg PO DAILY 04/12/19 [History] allopurinoL [Zyloprim] 150 mg PO DAILY 04/12/19 [History] Acetaminophen [Tylenol] 650 mg PO Q6H PRN tablet 04/16/19 [Rx] Warfarin Sodium [Coumadin] 6 mg PO ASDIRECTED 10/19/19 [History] Warfarin Sodium [Coumadin] 7 mg PO ASDIRECTED 10/19/19 [History] diphenhydrAMINE [Benadryl] 50 mg PO ASDIRECTED 10/19/19 [History] metOLazone [Metolazone] 2.5 mg PO ASDIRECTED 10/19/19 [History] rOPINIRole [Requip] 3 mg PO TID PRN 10/19/19 [History] Albuterol [Proair HFA] 2 puff INH ASDIRECTED PRN 01/18/20 [History] Ciprofloxacin [Ciprofloxacin HCl] 500 mg PO BID #10 tab 01/18/20 [Rx] Cyclobenzaprine [Flexeril] 10 mg PO TID PRN 01/18/20 [History] Ferrous Sulfate [High Potency Iron] 65 mg PO DAILY 01/18/20 [History] Hydrocodone/Acetaminophen [Hydrocodone-Acetamin 5-325 mg] 1 each PO ASDIRECTED PRN 01/18/20 [History] Pot Citrate 1 tab PO DAILY 01/18/20 [History] Past Medical History HEENT History: Reports: Cataract, Impaired Vision 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 Cardiovascular History: Reports: Afib, Angina, Heart Failure Respiratory History: Reports: Bronchitis, Recurrent, SOB Genitourinary History: Reports: Pyelonephritis, Urinary Incontinence Musculoskeletal History: Reports: Fibromyalgia, Osteoarthritis, Osteoporosis, Other (See Below) Other Musculoskeletal History: MS more than 50 years Neurological History: Reports: None, MS Psychiatric History: Reports: None Endocrine/Metabolic History: Reports: Obesity/BMI 30+ Hematologic History: Reports: Anemia Immunologic History: Reports: None Oncologic (Cancer) History: Reports: Malignant Melanoma Dermatologic History: Reports: Other (See Below) Other Dermatologic History: melanoma to top of head - Infectious Disease History Infectious Disease History: Reports: Chicken Pox, Measles, Mumps - Past Surgical History HEENT Surgical History: Reports: Cataract Surgery, Tonsillectomy Cardiovascular Surgical History: Reports: Other (See Below) Other Cardiovascular Surgeries/Procedures: angiogram without stents Respiratory Surgical History: Reports: Other (See Below) Other Respiratory Surgeries/Procedures: bronchoscopy February 2019 GI Surgical History: Reports: Appendectomy, Cholecystectomy, Colonoscopy, Other (See Below) Other GI Surgeries/Procedures: gastric bypass surgery Female Surgical History: Reports: Hysterectomy, Other (See Below) Other Female Surgeries/Procedures: bladder suspension Neurological Surgical History: Reports: None Musculoskeletal Surgical History: Reports: Knee Replacement, Shoulder Replacement, Other (See Below) Other Musculoskeletal Surgeries/Procedures:: left femur surgery Dermatological Surgical History: Reports: None Social & Family History - Family History Family Medical History: Noncontributory - Caffeine Use Caffeine Use: Reports: Tea Review of Systems - Review of Systems Review Of Systems: Comprehensive ROS is negative, except as noted in HPI. ED EXAM, GENERAL - Physical Exam Exam: See Below (see dictation) EKG INTERPRETATION EKG Interpretation Comments: 110 Bpm, afib, normal QRS interval, no STEMI. EKG and rhythm strip interpreted by me at 0409 Course - Vital Signs Last Recorded V/S: Last Vital Signs Temp 97.7 F 01/18/20 03:59 Pulse 90 01/18/20 05:37 Resp 16 01/18/20 05:37 BP 126/73 01/18/20 05:37 Pulse Ox 97 01/18/20 05:37 - Orders/Labs/Meds Orders: Active Orders 24 hr Category Date Time Status EKG Documentation Completion [RC] STAT Care 01/18/20 04:09 Active Sodium Chloride 0.9% [Saline Flush] Med 01/18/20 04:08 Active 10 ml FLUSH ASDIRECTED PRN Sodium Chloride 0.9% [Saline Flush] Med 01/18/20 04:08 Active 2.5 ml FLUSH ASDIRECTED PRN Saline Lock Insert [OM.PC] Stat Oth 01/18/20 04:08 Ordered Medication Orders Sodium Chloride (Saline Flush) 10 ml FLUSH ASDIRECTED PRN PRN Reason: Keep Vein Open Sodium Chloride (Saline Flush) 2.5 ml FLUSH ASDIRECTED PRN PRN Reason: Keep Vein Open Labs: Laboratory Tests 01/18/20 01/18/20 01/18/20 Range/Units 04:35 04:35 04:35 WBC 7.39 (4.0-11.0) K/uL RBC 3.33 L (4.30-5.90) M/uL Hgb 8.3 L (12.0-16.0) g/dL Hct 28.3 L (36.0-46.0) % MCV 85.0 (80.0-98.0) fL MCH 24.9 L (27.0-32.0) pg MCHC 29.3 L (31.0-37.0) g/dL RDW Std Deviation 54.2 (28.0-62.0) fl RDW Coeff of Radha 18 H (11.0-15.0) % Plt Count 267 (150-400) K/uL MPV 9.50 (7.40-12.00) fL Neut % (Auto) 65.9 (48.0-80.0) % Lymph % (Auto) 23.1 (16.0-40.0) % [place] % (Auto) 8.1 (0.0-15.0) % Eos % (Auto) 2.6 (0.0-7.0) % Baso % (Auto) 0.3 (0.0-1.5) % Neut # (Auto) 4.9 (1.4-5.7) K/uL Lymph # (Auto) 1.7 (0.6-2.4) K/uL [place] # (Auto) 0.6 (0.0-0.8) K/uL Eos # (Auto) 0.2 (0.0-0.7) K/uL Baso # (Auto) 0.0 (0.0-0.1) K/uL Nucleated RBC % 0.0 /100WBC Nucleated RBCs # 0 K/uL INR 2.36 APTT 45.0 H (18.6-31.3) SEC Sodium 139 (136-145) mmol/L Potassium 3.7 (3.5-5.1) mmol/L Chloride 102 (98-107) mmol/L Carbon Dioxide 29.9 (21.0-32.0) mmol/L BUN 27 H (7.0-18.0) mg/dL Creatinine 1.4 H (0.6-1.0) mg/dL Est Cr Clr Drug Dosing TNP Estimated GFR (MDRD) 37.0 ml/min Glucose 119 H (74-106) mg/dL Calcium 8.5 (8.5-10.1) mg/dL Phosphorus 4.3 (2.6-4.7) mg/dL Magnesium 1.6 L (1.8-2.4) mg/dL Total Bilirubin 0.8 (0.2-1.0) mg/dL AST 27 (15-37) IU/L ALT 22 (14-63) IU/L Alkaline Phosphatase 115 (46-116) U/L Creatine Kinase 72 (26-308) U/L Troponin I <0.050 (0.000-0.056) ng/mL B-Natriuretic Peptide (<100) PG/ML Total Protein 7.1 (6.4-8.2) g/dL Albumin 3.0 L (3.4-5.0) g/dL Globulin 4.1 H (2.6-4.0) g/dL Albumin/Globulin Ratio 0.7 L (0.9-1.6) Urine Color Urine Appearance Urine pH (5.0-8.0) Ur Specific [place] (1.001-1.035) Urine Protein (NEGATIVE) mg/dL Urine Glucose (UA) (NEGATIVE) mg/dL Urine Ketones (NEGATIVE) mg/dL Urine Occult Blood (NEGATIVE) Urine Nitrite (NEGATIVE) Urine Bilirubin (NEGATIVE) Urine Urobilinogen (<2.0) EU/dL Ur Leukocyte Esterase (NEGATIVE) Urine RBC (0-2/HPF) Urine WBC (0-5/HPF) Ur Epithelial Cells (NONE-FEW) Urine Bacteria (NEGATIVE) 01/18/20 01/18/20 Range/Units 04:35 06:05 WBC (4.0-11.0) K/uL RBC (4.30-5.90) M/uL Hgb (12.0-16.0) g/dL Hct (36.0-46.0) % MCV (80.0-98.0) fL MCH (27.0-32.0) pg MCHC (31.0-37.0) g/dL RDW Std Deviation (28.0-62.0) fl RDW Coeff of Radha (11.0-15.0) % Plt Count (150-400) K/uL MPV (7.40-12.00) fL Neut % (Auto) (48.0-80.0) % Lymph % (Auto) (16.0-40.0) % [place] % (Auto) (0.0-15.0) % Eos % (Auto) (0.0-7.0) % Baso % (Auto) (0.0-1.5) % Neut # (Auto) (1.4-5.7) K/uL Lymph # (Auto) (0.6-2.4) K/uL [place] # (Auto) (0.0-0.8) K/uL Eos # (Auto) (0.0-0.7) K/uL Baso # (Auto) (0.0-0.1) K/uL Nucleated RBC % /100WBC Nucleated RBCs # K/uL INR APTT (18.6-31.3) SEC Sodium (136-145) mmol/L Potassium (3.5-5.1) mmol/L Chloride (98-107) mmol/L Carbon Dioxide (21.0-32.0) mmol/L BUN (7.0-18.0) mg/dL Creatinine (0.6-1.0) mg/dL Est Cr Clr Drug Dosing Estimated GFR (MDRD) ml/min Glucose (74-106) mg/dL Calcium (8.5-10.1) mg/dL Phosphorus (2.6-4.7) mg/dL Magnesium (1.8-2.4) mg/dL Total Bilirubin (0.2-1.0) mg/dL AST (15-37) IU/L ALT (14-63) IU/L Alkaline Phosphatase (46-116) U/L Creatine Kinase (26-308) U/L Troponin I (0.000-0.056) ng/mL B-Natriuretic Peptide 206 H (<100) PG/ML Total Protein (6.4-8.2) g/dL Albumin (3.4-5.0) g/dL Globulin (2.6-4.0) g/dL Albumin/Globulin Ratio (0.9-1.6) Urine Color YELLOW Urine Appearance CLEAR Urine pH 6.0 (5.0-8.0) Ur Specific [place] 1.020 (1.001-1.035) Urine Protein NEGATIVE (NEGATIVE) mg/dL Urine Glucose (UA) NEGATIVE (NEGATIVE) mg/dL Urine Ketones NEGATIVE (NEGATIVE) mg/dL Urine Occult Blood NEGATIVE (NEGATIVE) Urine Nitrite POSITIVE H (NEGATIVE) Urine Bilirubin NEGATIVE (NEGATIVE) Urine Urobilinogen 0.2 (<2.0) EU/dL Ur Leukocyte Esterase NEGATIVE (NEGATIVE) Urine RBC 0-2 (0-2/HPF) Urine WBC 2-4 (0-5/HPF) Ur Epithelial Cells FEW (NONE-FEW) Urine Bacteria 4+ H (NEGATIVE) Meds: Medications Generic Name Dose Route Start Last Admin Trade Name Freq PRN Reason Stop Dose Admin Sodium Chloride 10 ml 01/18/20 04:08 Saline Flush FLUSH ASDIRECTED PRN Keep Vein Open Sodium Chloride 2.5 ml 01/18/20 04:08 Saline Flush FLUSH ASDIRECTED PRN Keep Vein Open Discontinued Medications Generic Name Dose Route Start Last Admin Trade Name Freq PRN Reason Stop Dose Admin Diltiazem HCl 20 mg 01/18/20 04:36 01/18/20 04:44 Diltiazem IVPUSH 01/18/20 04:37 20 mg ONETIME ONE Administration Furosemide 20 mg 01/18/20 06:04 01/18/20 06:13 Lasix IVPUSH 01/18/20 06:05 20 mg NOW ONE Administration Morphine Sulfate 4 mg 01/18/20 04:10 01/18/20 04:44 Morphine IVPUSH 01/18/20 04:11 4 mg ONETIME ONE Administration Morphine Sulfate 4 mg 01/18/20 06:04 01/18/20 06:13 Morphine IVPUSH 01/18/20 06:05 4 mg ONETIME ONE Administration - Re-Assessments/Exams Free Text/Narrative Re-Assessment/Exam: 01/18/20 04:36 Ordered 4mg morphine for pain, and cardizem 20mg IVP for rate control. 01/18/20 06:05 Pain down to 6/10, HR down to 90s, will redose morphine 4mg IV, and diurese with IV lasix 20mg. 01/18/20 06:50 After 2nd dose of morphine, her pain is down to 4. She improved clinically and is stable for discharge. I performed a repeat examination and the patient has not demonstrated any new abnormal findings. Patient exhibits normal vital signs. I advised the patient to return to the ER for reevaluation if symptoms worsened, and to follow up with their PCP within 2-3 days. I instructed her to take her hydrocodone/acetaminophen or tramadol for pain rated greater than 7/10. MEDICAL DECISION MAKING: I reviewed the patients past medical records, lab and radiographic findings. I discussed the case with the patient. My differential diagnosis included: Intractable pain, DVT, supratherapeutic INR, A. fib with RVR. Patient presented with A. fib with RVR with her heart rate in the 120s, she rate control was achieved with 20 mg IV Cardizem. Her ultrasound on her left lower extremity did not reveal a DVT. She is therapeutic on her INR. She presented with a chief complaint of pain and swelling to her left leg, however she only took Tylenol for her pain, she did not want to take her tramadol or hydrocodone as prescribed as needed. She received IV morphine here with relief of her pain. She was comfortable to be discharged home since her pain was much improved. She did get IV Lasix for additional diuresis. Her hemoglobin was found to be 8.3 today, it was 8.9 on 01/01/2020. She denies symptoms of anemia, shortness of breath, near syncope. I do not think she needs emergent blood transfusion at this time. Her urine demonstrated a urinary tract infection, she is stable for outpatient antibiotic treatment. Departure - Departure Time of Disposition: 06:50 Disposition: Home, Self-Care 01 Condition: Good Clinical Impression: Leg pain, left, Atrial fibrillation with RVR UTI (urinary tract infection) Qualifiers: Urinary tract infection type: acute cystitis Hematuria presence: without hematuria Qualified Code(s): N30.00 - Acute cystitis without hematuria - Discharge Information *PRESCRIPTION DRUG MONITORING PROGRAM REVIEWED*: Not Applicable *COPY OF PRESCRIPTION DRUG MONITORING REPORT IN PATIENT FERNANDEZ: Not Applicable Prescriptions: Ciprofloxacin [Ciprofloxacin HCl] 500 mg PO BID #10 tab Instructions: What You Need to Know About Warfarin, Urinary Tract Infection, Adult, [id number], Pain Medicine Instructions, [id number], Atrial Fibrillation, [id number] Referrals: Jen Penn DO [Primary Care Provider] - 2 Days Forms: ED Department Discharge Additional Instructions: The following information is given to patients seen in the emergency department who are being discharged to home. This information is to outline your options for follow-up care. We provide all patients seen in our emergency department with a follow-up referral. The need for follow-up, as well as the timing and circumstances, are variable depending upon the specifics of your emergency department visit. If you don't have a primary care physician on staff, we will provide you with a referral. We always advise you to contact your personal physician following an emergency department visit to inform them of the circumstance of the visit and for follow-up with them and/or the need for any referrals to a consulting specialist. The emergency department will also refer you to a specialist when appropriate. This referral assures that you have the opportunity for follow-up care with a specialist. All of these measure are taken in an effort to provide you with optimal care, which includes your follow-up. Under all circumstances we always encourage you to contact your private physician who remains a resource for coordinating your care. When calling for follow-up care, please make the office aware that this follow-up is from your recent emergency room visit. If for any reason you are refused follow-up, please contact the [facility] Emergency Department at and asked to speak to the emergency department charge nurse. Sepsis Event Note (ED) - Evaluation Sepsis Screening Result: No Definite Risk - Focused Exam Vital Signs: Vital Signs Temp Pulse Resp BP Pulse Ox 01/18/20 05:37 90 16 126/73 97 01/18/20 05:15 89 16 126/69 95 01/18/20 05:00 103 H 16 119/72 99 01/18/20 04:45 125 H 18 134/76 99 01/18/20 04:15 116 H 18 134/80 98 01/18/20 04:00 108 H 18 133/80 97 01/18/20 03:59 97.7 F 115 H 18 135/68 98 - My Orders Last 24 Hours: My Active Orders 01/18/20 04:08 Sodium Chloride 0.9% [Saline Flush] 10 ml FLUSH ASDIRECTED PRN Sodium Chloride 0.9% [Saline Flush] 2.5 ml FLUSH ASDIRECTED PRN Saline Lock Insert [OM.PC] Stat 01/18/20 04:09 EKG Documentation Completion [RC] STAT - Assessment/Plan Last 24 Hours: My Active Orders 01/18/20 04:08 Sodium Chloride 0.9% [Saline Flush] 10 ml FLUSH ASDIRECTED PRN Sodium Chloride 0.9% [Saline Flush] 2.5 ml FLUSH ASDIRECTED PRN Saline Lock Insert [OM.PC] Stat 01/18/20 04:09 EKG Documentation Completion [RC] STAT
[2020-01-18] MEDS ORDERED: Diltiazem 25 MG/5 ML SDV IVPUSH ONE (04:36)
[2020-01-18 05:07] LABS: BLOOD UREA NITROGEN,BUN 27 mg/dL (7.0-18.0); CARBON DIOXIDE,CO2 29.9 mmol/L (21.0-32.0); CHLORIDE,CL 102 mmol/L (98-107); GLUCOSE RANDOM 119 mg/dL (74-106); POTASSIUM,K 3.7 mmol/L (3.5-5.1); SODIUM,NA 139 mmol/L (136-145)
--- NOTE | 2020-01-18 05:07 | CR ---
INDICATION: Weak TECHNIQUE: Chest 1 views COMPARISON: Chest x-ray 01/01/2020 FINDINGS: Cardiovascular and mediastinum: Normal heart size with aortic tortuosity. Lungs and pleural spaces: No pleural effusion or pneumothorax. Bilateral bronchial wall thickening. Bones and soft tissues: Bilateral shoulder replacements. Left upper quadrant surgical clips. IMPRESSION: Bilateral bronchial wall thickening which can be seen in bronchitis or reactive airways disease. Dictated by Kuldeep Winters MD @ Jan 18 2020 5:03AM Signed by Dr. Kuldeep Winters @ Jan 18 2020 5:04AM
--- NOTE | 2020-01-18 05:09 | CR ---
Indication: Weakness and pain Technique: One view Comparison: Pelvis 01/01/2020 Findings: Bones: Osteopenia without evidence of acute fracture. Joint spaces: Unremarkable. Soft tissues: Suture material overlies the lower abdomen. Dictated by Kuldeep Winters MD @ Jan 18 2020 5:05AM Signed by Dr. Kuldeep Winters @ Jan 18 2020 5:07AM
--- NOTE | 2020-01-18 05:11 | CR ---
Indication: Weak, pain Technique: Two views, 4 films Comparison: Left femur 01/01/2020 Findings: Bones: There is an old distal femoral metaphyseal fracture with posterior and medial displacement of the distal fracture fragment with bony bridging. The patient is status post lateral plate and screw fixation of the distal femur. No definite evidence of hardware fracture. No acute interval change compared to the prior exam. Joint spaces: Status post left total knee replacement without dislocation. Soft tissues: Atherosclerosis. Dictated by Kuldeep Winters MD @ Jan 18 2020 5:07AM Signed by Dr. Kuldeep Winters @ Jan 18 2020 5:10AM
--- NOTE | 2020-01-18 05:52 | US ---
INDICATION: Leg pain and swelling TECHNIQUE: Ultrasound venous duplex lower left extremity. Compression venous exam was performed using franco-scale, color Doppler, and spectral Doppler analysis. COMPARISON: Left lower extremity ultrasound 12/04/2019 FINDINGS: Sonographic imaging demonstrates the left common femoral, deep femoral, superficial femoral, popliteal, posterior tibial and greater saphenous and the contralateral right common femoral veins to be fully compressible with normal color Doppler blood flow. Minimal areas of subcutaneous edema without focal collection. IMPRESSION: No evidence of deep venous thrombosis left lower extremity. Dictated by Kuldeep Winters MD @ Jan 18 2020 5:49AM Signed by Dr. Kuldeep Winters @ Jan 18 2020 5:51AM
[2020-01-18] MEDS ORDERED: Furosemide 40 MG/4 ML VIAL IVPUSH ONE (06:04)
== END 2020-01-18 07:27 | disposition home or self-care (01) ==
LOC: MW.ED 03:41
DX: S70.12XA Contusion of left thigh, initial encounter (principal); I48.91 Unspecified atrial fibrillation; N30.00 Acute cystitis without hematuria; I11.0 Hypertensive heart disease with heart failure; E66.9 Obesity, unspecified; Z79.899 Other long term (current) drug therapy; Z88.8 Allergy status to other drugs, medicaments and biological substances; Z88.1 Allergy status to other antibiotic agents; Z88.0 Allergy status to penicillin; Z91.048 Other nonmedicinal substance allergy status; Z88.7 Allergy status to serum and vaccine; W19.XXXA Unspecified fall, initial encounter
CPT/HCPCS: 36415; 71045; 72170; 73552; 80053; 81001; 82550; 83735; 83880; 84100; 84484; 85025; 85610; 85730; 93005; 93971; 96374; 96375; 96376; 99285; J1940; J2270; J3490; 99284

== ENCOUNTER 2020-03-30 10:05 | Observation (INO) | payer MEDICARE, BC ==
[2020-03-30] MEDS ORDERED: Sodium Chloride 0.9% 2.5 ML Syringe FLUSH PRN ×2 (10:14→13:46)
[2020-03-30] MEDS ORDERED: Sodium Chloride 0.9% 10 ML Syringe FLUSH PRN (10:14)
[2020-03-30] MEDS ORDERED: Morphine 2 MG/ML SYRINGE IVPUSH ONE (10:17)
--- NOTE | 2020-03-30 10:23 | EDM.PDOC ---
ED HPI GENERAL MEDICAL PROBLEM - General Chief Complaint: Trauma Stated Complaint: FALL Time Seen by Provider: 03/30/20 10:13 Source of Information: Reports: Patient - History of Present Illness INITIAL COMMENTS - FREE TEXT/NARRATIVE: History of present illness: 74-year-old female brought by EMS as a trauma activation after a fall. Apparently the patient was walking pushing her wheelchair while trying to transfer (primarily wheelchair dependent), when she lost her balance and fell. She struck her chest on the arm of the wheelchair and is now having pain in the chest and abdomen. Denies any head or neck injury and does not have any headache. However she is on anticoagulation for atrial fibrillation. Review of systems: As per history of present illness and below otherwise all systems reviewed and negative. Past medical history: As per history of present illness and as reviewed below otherwise noncontributory. Atrial fibrillation Surgical history: As per history of present illness and as reviewed below otherwise noncontributory. Cardiac stents Social history: No reported history of drug or alcohol abuse. No tobacco Family history: As per history of present illness and as reviewed below otherwise noncontributory. Physical exam: GEN: no acute distress, well appearing HEENT: Atraumatic, normocephalic, mucous membranes moist, no facial tenderness. No skull tenderness. No hematoma or contusion seen Neck: supple, nontender, trachea midline. No midline C-spine tenderness. Lungs: No respiratory distress. Left anterior chest with ecchymosis and tenderness. No crepitus or palpable rib fractures. Right chest wall nontender. Heart: RRR Abdomen: Soft, nondistended, no ecchymosis or signs of trauma, however the patient does have diffuse abdominal tenderness without rebound or guarding. Back: nontender Extremities: Both lower extremities are erythematous, appear to have chronic venous stasis, patient does report tender to the touch but that this is a chronic issue for her. There is nonpitting edema bilaterally, 1+. She is able to lift and move both legs with out any assistance. No hip tenderness. Full range of motion of both hips. Pelvis is stable. Neurovascularly intact. Neuro: Awake, alert, oriented. Neuro Exam nonfocal. Skin: warm, dry, chronic stasis appearing erythema of both lower extremities Diagnostics: Watson scan Therapeutics: [] MDM: Impression: [] Plan: [] Definitive disposition and diagnosis as appropriate pending reevaluation and review of above. abdomen, chest, ribs, low back, right leg Pain Score (Numeric/FACES): 10 - Related Data Allergies Allergy/AdvReac Type Severity Reaction Status Date / Time amoxicillin Allergy Rash Verified 03/30/20 10:14 cephalexin monohydrate Allergy Rash Verified 03/30/20 10:14 [From Keflex] Penicillins Allergy Rash Verified 03/30/20 10:14 rofecoxib [From Vioxx] Allergy Rash Verified 03/30/20 10:14 tetanus toxoid, adsorbed Allergy Rash Verified 03/30/20 10:14 valacyclovir HCl Allergy Rash Verified 03/30/20 10:14 [From Valtrex] wool Allergy Rash Verified 03/30/20 10:14 ferlacit Allergy Severe Hypotension Uncoded 03/30/20 10:14 Avalox Allergy Rash Uncoded 03/30/20 10:14 Bextra Allergy Rash Uncoded 03/30/20 10:14 celebrex Allergy Rash Uncoded 03/30/20 10:14 macrobid Allergy Rash Uncoded 03/30/20 10:14 plastic tape Allergy Rash Uncoded 03/30/20 10:14 Zofran Allergy Rash Uncoded 03/30/20 10:14 Home Meds: Home Meds Bumetanide [Bumex] 2 mg PO BID 04/12/19 [History] Gabapentin [Neurontin] 300 mg PO TID 04/12/19 [History] Latanoprost/Pf [Latanoprost 0.005% Eye Drop] 7.5 ml OP DAILY 04/12/19 [History] Metoprolol Succinate 100 mg PO DAILY 04/12/19 [History] allopurinoL [Zyloprim] 150 mg PO DAILY 04/12/19 [History] Acetaminophen [Tylenol] 650 mg PO Q6H PRN tablet 04/16/19 [Rx] Warfarin Sodium [Coumadin] 6 mg PO ASDIRECTED 10/19/19 [History] Warfarin Sodium [Coumadin] 7 mg PO ASDIRECTED 10/19/19 [History] diphenhydrAMINE [Benadryl] 50 mg PO ASDIRECTED 10/19/19 [History] metOLazone [Metolazone] 2.5 mg PO ASDIRECTED 10/19/19 [History] rOPINIRole [Requip] 3 mg PO TID PRN 10/19/19 [History] Albuterol [Proair HFA] 2 puff INH ASDIRECTED PRN 01/18/20 [History] Ciprofloxacin [Ciprofloxacin HCl] 500 mg PO BID #10 tab 01/18/20 [Rx] Cyclobenzaprine [Flexeril] 10 mg PO TID PRN 01/18/20 [History] Ferrous Sulfate [High Potency Iron] 65 mg PO DAILY 01/18/20 [History] Hydrocodone/Acetaminophen [Hydrocodone-Acetamin 5-325 mg] 1 each PO ASDIRECTED PRN 01/18/20 [History] Pot Citrate 1 tab PO DAILY 01/18/20 [History] Past Medical History HEENT History: Reports: Cataract, Impaired Vision 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 Cardiovascular History: Reports: Afib, Angina, Heart Failure Respiratory History: Reports: Bronchitis, Recurrent, SOB Genitourinary History: Reports: Pyelonephritis, Urinary Incontinence Musculoskeletal History: Reports: Fibromyalgia, Osteoarthritis, Osteoporosis, Other (See Below) Other Musculoskeletal History: MS more than 50 years Neurological History: Reports: None, MS Psychiatric History: Reports: None Endocrine/Metabolic History: Reports: Obesity/BMI 30+ Hematologic History: Reports: Anemia Immunologic History: Reports: None Oncologic (Cancer) History: Reports: Malignant Melanoma Dermatologic History: Reports: Other (See Below) Other Dermatologic History: melanoma to top of head - Infectious Disease History Infectious Disease History: Reports: Chicken Pox, Measles, Mumps - Past Surgical History HEENT Surgical History: Reports: Cataract Surgery, Tonsillectomy Cardiovascular Surgical History: Reports: Other (See Below) Other Cardiovascular Surgeries/Procedures: angiogram without stents Respiratory Surgical History: Reports: Other (See Below) Other Respiratory Surgeries/Procedures: bronchoscopy February 2019 GI Surgical History: Reports: Appendectomy, Cholecystectomy, Colonoscopy, Other (See Below) Other GI Surgeries/Procedures: gastric bypass surgery Female Surgical History: Reports: Hysterectomy, Other (See Below) Other Female Surgeries/Procedures: bladder suspension Neurological Surgical History: Reports: None Musculoskeletal Surgical History: Reports: Knee Replacement, Shoulder Replacement, Other (See Below) Other Musculoskeletal Surgeries/Procedures:: left femur surgery Dermatological Surgical History: Reports: None Social & Family History - Family History Family Medical History: Noncontributory - Caffeine Use Caffeine Use: Reports: Tea Review of Systems - Review of Systems Review Of Systems: See Below (See HPI) ED EXAM, GENERAL - Physical Exam Exam: See Below (see HPI) Course - Vital Signs Text/Narrative:: Patient with fall on anticoagulation. No head injury. No head or neck pain. Does have chest wall pain and tenderness as well as diffuse abdominal tenderness. CT scan of the head/neck/chest/abdomen/pelvis shows questionable eighth rib fracture, no other acute traumatic injury seen. Patient does take warfarin. Her INR is elevated though no signs of active bleeding. Will hold Coumadin. As the patient had a moderate trauma with questionable rib fracture and does live alone and does not have any physical assistance at home and due to concern for adequate pain control as the patient received morphine here and has not yet had significant symptom improvement, will admit the patient. Case was discussed with trauma surgeon, who came to evaluate the patient and request admit to medicine. Case discussed with Dr. Bowman who admit accepts the patient. COVID swab negative. Last Recorded V/S: Last Vital Signs Temp 96.1 F L 03/30/20 10:10 Pulse 92 03/30/20 10:10 Resp 22 H 03/30/20 10:10 BP 113/64 03/30/20 10:10 Pulse Ox 97 03/30/20 10:10 - Orders/Labs/Meds Orders: Active Orders 24 hr Category Date Time Status Patient Status [ADT] Routine ADT 03/30/20 12:08 Active CORONAVIRUS COVID-19 PCR PHL Stat Lab 03/30/20 11:53 Ordered Sodium Chloride 0.9% [Saline Flush] Med 03/30/20 10:14 Active 10 ml FLUSH ASDIRECTED PRN Sodium Chloride 0.9% [Saline Flush] Med 03/30/20 10:14 Active 2.5 ml FLUSH ASDIRECTED PRN Saline Lock Insert [OM.PC] Stat Oth 03/30/20 10:14 Ordered Medication Orders Sodium Chloride (Saline Flush) 10 ml FLUSH ASDIRECTED PRN PRN Reason: Keep Vein Open Last Admin: 03/30/20 10:21 Dose: 10 ml Documented by: [id number] Sodium Chloride (Saline Flush) 2.5 ml FLUSH ASDIRECTED PRN PRN Reason: Keep Vein Open Last Admin: 03/30/20 10:22 Dose: 2.5 ml Documented by: [id number] Labs: Laboratory Tests 03/30/20 03/30/20 03/30/20 Range/Units 10:20 10:20 10:20 WBC 7.11 (4.0-11.0) K/uL RBC 3.31 L (4.30-5.90) M/uL Hgb 8.9 L (12.0-16.0) g/dL Hct 29.0 L (36.0-46.0) % MCV 87.6 (80.0-98.0) fL MCH 26.9 L (27.0-32.0) pg MCHC 30.7 L (31.0-37.0) g/dL RDW Std Deviation 53.4 (28.0-62.0) fl RDW Coeff of Radha 17 H (11.0-15.0) % Plt Count 227 (150-400) K/uL MPV 9.20 (7.40-12.00) fL Neut % (Auto) 69.9 (48.0-80.0) % Lymph % (Auto) 19.7 (16.0-40.0) % [place] % (Auto) 8.7 (0.0-15.0) % Eos % (Auto) 1.4 (0.0-7.0) % Baso % (Auto) 0.3 (0.0-1.5) % Neut # (Auto) 5.0 (1.4-5.7) K/uL Lymph # (Auto) 1.4 (0.6-2.4) K/uL [place] # (Auto) 0.6 (0.0-0.8) K/uL Eos # (Auto) 0.1 (0.0-0.7) K/uL Baso # (Auto) 0.0 (0.0-0.1) K/uL Nucleated RBC % 0.0 /100WBC Nucleated RBCs # 0 K/uL INR Sodium 140 (136-145) mmol/L Potassium 4.1 (3.5-5.1) mmol/L Chloride 105 (98-107) mmol/L Carbon Dioxide 25.5 (21.0-32.0) mmol/L BUN 12 (7.0-18.0) mg/dL Creatinine 1.2 H (0.6-1.0) mg/dL Est Cr Clr Drug Dosing 42.75 mL/min Estimated GFR (MDRD) 44.2 ml/min Glucose 124 H (74-106) mg/dL Calcium 9.0 (8.5-10.1) mg/dL Creatine Kinase 115 (26-308) U/L SARS Virus RNA (PCR) (NEGATIVE) 03/30/20 03/30/20 Range/Units 10:20 12:18 WBC (4.0-11.0) K/uL RBC (4.30-5.90) M/uL Hgb (12.0-16.0) g/dL Hct (36.0-46.0) % MCV (80.0-98.0) fL MCH (27.0-32.0) pg MCHC (31.0-37.0) g/dL RDW Std Deviation (28.0-62.0) fl RDW Coeff of Radha (11.0-15.0) % Plt Count (150-400) K/uL MPV (7.40-12.00) fL Neut % (Auto) (48.0-80.0) % Lymph % (Auto) (16.0-40.0) % [place] % (Auto) (0.0-15.0) % Eos % (Auto) (0.0-7.0) % Baso % (Auto) (0.0-1.5) % Neut # (Auto) (1.4-5.7) K/uL Lymph # (Auto) (0.6-2.4) K/uL Kitt[place] # (Auto) (0.0-0.8) K/uL Eos # (Auto) (0.0-0.7) K/uL Baso # (Auto) (0.0-0.1) K/uL Nucleated RBC % /100WBC Nucleated RBCs # K/uL INR 5.11 Sodium (136-145) mmol/L Potassium (3.5-5.1) mmol/L Chloride (98-107) mmol/L Carbon Dioxide (21.0-32.0) mmol/L BUN (7.0-18.0) mg/dL Creatinine (0.6-1.0) mg/dL Est Cr Clr Drug Dosing mL/min Estimated GFR (MDRD) ml/min Glucose (74-106) mg/dL Calcium (8.5-10.1) mg/dL Creatine Kinase (26-308) U/L SARS Virus RNA (PCR) NEGATIVE (NEGATIVE) Meds: Medications Generic Name Dose Route Start Last Admin Trade Name Freq PRN Reason Stop Dose Admin Sodium Chloride 10 ml 03/30/20 10:14 03/30/20 10:21 Saline Flush FLUSH 10 ml ASDIRECTED PRN Administration Keep Vein Open Sodium Chloride 2.5 ml 03/30/20 10:14 03/30/20 10:22 Saline Flush FLUSH 2.5 ml ASDIRECTED PRN Administration Keep Vein Open Discontinued Medications Generic Name Dose Route Start Last Admin Trade Name Freq PRN Reason Stop Dose Admin Acetaminophen 1,000 mg 03/30/20 11:51 03/30/20 12:19 Tylenol Extra Strength PO 03/30/20 11:52 1,000 mg ONETIME ONE Administration Lidocaine 700 mg 03/30/20 11:51 03/30/20 12:21 Lidoderm 5% TOP 03/30/20 11:52 700 mg ONETIME ONE Administration Morphine Sulfate 2 mg 03/30/20 10:17 03/30/20 10:22 Morphine IVPUSH 03/30/20 10:18 2 mg ONETIME ONE Administration - Re-Assessments/Exams Free Text/Narrative Re-Assessment/Exam: 03/30/20 11:52 Resting, no acute distress. She does report she still has some pain in the left side of her chest at the site of the fracture. Discussed recommendation for admission with the patient for monitoring, to evaluate for any delayed bleeding as she is on warfarin, and for pain control given her rib fracture. She does agree with this plan. 03/30/20 11:54 Dr. Brothers's nurse called back, she is in a case but will come to ED in 5 min. 03/30/20 12:[address] Brothers, she requests to admit the patient to medicine but she will evaluate the patient and perform trauma consultation. 03/30/20 12:08 Dr. Bowman accepts the patient for admission. Observation Departure - Departure Time of Disposition: 11:55 Disposition: Refer to Observation Clinical Impression: Elevated INR Rib fracture Qualifiers: Encounter type: initial encounter Rib fracture type: single rib Fracture type: closed Laterality: left Qualified Code(s): S22.32XA - Fracture of one rib, left side, initial encounter for closed fracture - Discharge Information Sepsis Event Note (ED) - Evaluation Sepsis Screening Result: No Definite Risk - Focused Exam Vital Signs: Vital Signs Temp Pulse Resp BP Pulse Ox 03/30/20 10:10 96.1 F L 92 22 H 113/64 97 - My Orders Last 24 Hours: My Active Orders 03/30/20 10:14 Sodium Chloride 0.9% [Saline Flush] 10 ml FLUSH ASDIRECTED PRN Sodium Chloride 0.9% [Saline Flush] 2.5 ml FLUSH ASDIRECTED PRN Saline Lock Insert [OM.PC] Stat 03/30/20 11:53 CORONAVIRUS COVID-19 PCR PHL Stat 03/30/20 12:08 Patient Status [ADT] Routine - Assessment/Plan Last 24 Hours: My Active Orders 03/30/20 10:14 Sodium Chloride 0.9% [Saline Flush] 10 ml FLUSH ASDIRECTED PRN Sodium Chloride 0.9% [Saline Flush] 2.5 ml FLUSH ASDIRECTED PRN Saline Lock Insert [OM.PC] Stat 03/30/20 11:53 CORONAVIRUS COVID-19 PCR PHL Stat 03/30/20 12:08 Patient Status [ADT] Routine
[2020-03-30 10:39] LABS: CARBON DIOXIDE,CO2 25.5 mmol/L (21.0-32.0); POTASSIUM,K 4.1 mmol/L (3.5-5.1)
--- NOTE | 2020-03-30 10:45 | CR ---
Chest: Portable view of the chest was obtained. Comparison: Prior chest x-ray of 01/18/20. Heart size and mediastinum are within normal limits for portable technique. Lungs are clear with no acute parenchymal change. Bilateral shoulder prosthesis are noted. Impression: 1. Nothing acute is appreciated on portable chest x-ray. Diagnostic code #2 This report was dictated in MDT
--- NOTE | 2020-03-30 10:58 | CT ---
Head CT Technique: Multiple axial sections through the brain were obtained. Intravenous contrast was not utilized. Comparison: No prior intracranial imaging is available. Findings: Ventricles along with basal cisterns and sulci over the convexities are mildly prominent. No abnormal parenchymal densities are seen. No evidence of intracranial hemorrhage. No midline shift or mass effect is seen. Minimal areas of diminished density are scattered within the periventricular white matter compatible with small vessel ischemic demyelination change. Bone window settings were reviewed. Visualized paranasal sinuses and visualized mastoid sinuses show nothing acute. No acute calvarial finding is seen. Impression: 1. Senescent change as noted above. 2. No acute intracranial abnormality is appreciated. Diagnostic code #2 This report was dictated in MDT
--- NOTE | 2020-03-30 11:05 | CT ---
CT abdomen and pelvis Technique: Multiple axial sections were obtained from above the dome of the diaphragm inferiorly through the pubic symphysis. Intravenous contrast was utilized. No oral contrast has been given. Reconstructed coronal and sagittal images were obtained. Comparison: No prior CT abdomen or pelvis exam is available. Findings: Visualized lung bases show nothing acute. Liver contains no focal parenchymal abnormality. Spleen appears within normal limits. Surgical clips appear to be present within the left upper abdomen. Prior gastric surgery is also noted. Adrenal glands show nothing acute. Kidneys show symmetric contrast enhancement without nothing acute. Mild cortical thinning is seen within both kidneys. Pancreas shows no discrete abnormality. Aorta shows no aneurysm. No retroperitoneal adenopathy or mesenteric abnormalities are seen. No pelvic mass or adenopathy is seen. No free fluid or inflammatory change is appreciated. Appendix is not visualized with certainty. Bone window settings were reviewed. Scattered degenerative change is noted within the spine. No acute osseous finding is appreciated. Impression: 1. Findings as noted above. 2. Nothing acute is appreciated on CT study of the abdomen and pelvis. Diagnostic code #2 This report was dictated in MDT
--- NOTE | 2020-03-30 11:10 | CT ---
CT cervical spine Technique: Multiple axial sections were obtained from above C1 inferiorly to the top in T3. Reconstructed coronal and sagittal images were reviewed. Comparison: No prior cervical spine imaging is available. Findings: Degenerative change is noted between the dens and anterior arch of C1. Diffuse degenerative change scattered throughout the apophyseal joints. Vertebral body heights and disc spaces are fairly well preserved. Artifact noted from patient's body size. Minimal right sided neural foraminal stenosis noted at C4-C5. Other neural foramina are fairly well patent. No bony central canal stenosis is seen. No fracture is appreciated. No abnormal subluxation is appreciated. Impression: 1. Osteopenia and degenerative change. 2. No acute fracture or abnormal subluxation is seen. Diagnostic code #3 This report was dictated in MDT
--- NOTE | 2020-03-30 11:19 | CT ---
CT chest Technique: Multiple axial sections through the chest were obtained. Reconstructed coronal and sagittal images were obtained. Comparison: No prior chest CT, prior chest x-ray performed earlier on the same day (10:18 AM). Findings: No pericardial thickening is seen. Aorta shows no aneurysm. Mediastinum shows no hematoma or adenopathy. Left thyroid nodule is seen measuring 3.7 cm. Lungs are clear with no acute parenchymal change. No pleural effusions are seen. No pneumothorax is identified. Bilateral shoulder prosthesis are noted. Bone window settings were reviewed. Sagittal images suggest an acute rib fracture within the left lateral eighth rib. No other acute fracture is suggested. Several old healed rib fractures are noted. Diffuse degenerative change is scattered throughout the spine. Lateral reconstructed images of the sternum appear intact. Impression: 1. Possible nondisplaced acute fracture within the lateral left eighth rib. 2. Left thyroid nodule. This is nonspecific and biopsy would be needed to determine etiology if clinically indicated. 3. No other acute abnormality is seen. Diagnostic code #3 This report was dictated in MDT
[2020-03-30] MEDS ORDERED: Lidocaine 5% 700 MG Patch TOP ONE (11:51)
[2020-03-30] MEDS ORDERED: Acetaminophen 500 MG Tab PO ONE (11:51)
--- NOTE | 2020-03-30 13:13 | PCM.CONS ---
H&P History of Present Illness - General Date of Service: 03/30/20 Admit Problem/Dx: Admission Diagnosis/Problem Admission Diagnosis/Problem Rib injury Source of Information: Patient History Limitations: Reports: No Limitations - History of Present Illness Initial Comments - Free Text/Narative: Patient is a 74 year old female who presents after a fall while transferring at home. She was using her walker and fell. She hit her left side and chest. She is not sure if she briefly loss consciousness or not. She complains of left sided chest pain with deep inspiration. She denies any pain elsewhere other than her usual chronic pain. Her vitals were stable on arrival. She had bruising over her left breast and chest wall. CT head, cervical, chest, abdomen and pelvis showed no acute injury other than a possible left lateral 8th rib fracture. The patient is on coumadin and has multiple medical problems. She does complain of lower extremity swelling, skin changes, and weeping. She was supposed to see her PCP about this today. She was told to wear compression stockings but states that she cannot tolerate them. abdomen, chest, ribs, low back, right leg Pain Score (Numeric/FACES): 10 - Related Data Allergies/Adverse Reactions: Allergies Allergy/AdvReac Type Severity Reaction Status Date / Time amoxicillin Allergy Rash Verified 03/30/20 10:14 cephalexin monohydrate Allergy Rash Verified 03/30/20 10:14 [From Keflex] Penicillins Allergy Rash Verified 03/30/20 10:14 rofecoxib [From Vioxx] Allergy Rash Verified 03/30/20 10:14 tetanus toxoid, adsorbed Allergy Rash Verified 03/30/20 10:14 valacyclovir HCl Allergy Rash Verified 03/30/20 10:14 [From Valtrex] wool Allergy Rash Verified 03/30/20 10:14 ferlacit Allergy Severe Hypotension Uncoded 03/30/20 10:14 Avalox Allergy Rash Uncoded 03/30/20 10:14 Bextra Allergy Rash Uncoded 03/30/20 10:14 celebrex Allergy Rash Uncoded 03/30/20 10:14 macrobid Allergy Rash Uncoded 03/30/20 10:14 plastic tape Allergy Rash Uncoded 03/30/20 10:14 Zofran Allergy Rash Uncoded 03/30/20 10:14 Home Medications: Home Meds Bumetanide [Bumex] 2 mg PO BID 04/12/19 [History] Gabapentin [Neurontin] 300 mg PO TID 04/12/19 [History] Latanoprost/Pf [Latanoprost 0.005% Eye Drop] 7.5 ml OP DAILY 04/12/19 [History] Metoprolol Succinate 100 mg PO DAILY 04/12/19 [History] allopurinoL [Zyloprim] 150 mg PO DAILY 04/12/19 [History] Acetaminophen [Tylenol] 650 mg PO Q6H PRN tablet 04/16/19 [Rx] Warfarin Sodium [Coumadin] 6 mg PO ASDIRECTED 10/19/19 [History] Warfarin Sodium [Coumadin] 7 mg PO ASDIRECTED 10/19/19 [History] diphenhydrAMINE [Benadryl] 50 mg PO ASDIRECTED 10/19/19 [History] metOLazone [Metolazone] 2.5 mg PO ASDIRECTED 10/19/19 [History] rOPINIRole [Requip] 3 mg PO TID PRN 10/19/19 [History] Albuterol [Proair HFA] 2 puff INH ASDIRECTED PRN 01/18/20 [History] Ciprofloxacin [Ciprofloxacin HCl] 500 mg PO BID #10 tab 01/18/20 [Rx] Cyclobenzaprine [Flexeril] 10 mg PO TID PRN 01/18/20 [History] Ferrous Sulfate [High Potency Iron] 65 mg PO DAILY 01/18/20 [History] Hydrocodone/Acetaminophen [Hydrocodone-Acetamin 5-325 mg] 1 each PO ASDIRECTED PRN 01/18/20 [History] Pot Citrate 1 tab PO DAILY 01/18/20 [History] Past Medical History HEENT History: Reports: Cataract, Impaired Vision 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 Cardiovascular History: Reports: Afib, Angina, Heart Failure Respiratory History: Reports: Bronchitis, Recurrent, SOB Genitourinary History: Reports: Pyelonephritis, Urinary Incontinence Musculoskeletal History: Reports: Fibromyalgia, Osteoarthritis, Osteoporosis, Other (See Below) Other Musculoskeletal History: MS more than 50 years Neurological History: Reports: None, MS Psychiatric History: Reports: None Endocrine/Metabolic History: Reports: Obesity/BMI 30+ Hematologic History: Reports: Anemia Immunologic History: Reports: None Oncologic (Cancer) History: Reports: Malignant Melanoma Dermatologic History: Reports: Other (See Below) Other Dermatologic History: melanoma to top of head - Infectious Disease History Infectious Disease History: Reports: Chicken Pox, Measles, Mumps - Past Surgical History HEENT Surgical History: Reports: Cataract Surgery, Tonsillectomy Cardiovascular Surgical History: Reports: Other (See Below) Other Cardiovascular Surgeries/Procedures: angiogram without stents Respiratory Surgical History: Reports: Other (See Below) Other Respiratory Surgeries/Procedures: bronchoscopy February 2019 GI Surgical History: Reports: Appendectomy, Cholecystectomy, Colonoscopy, Other (See Below) Other GI Surgeries/Procedures: gastric bypass surgery Female Surgical History: Reports: Hysterectomy, Other (See Below) Other Female Surgeries/Procedures: bladder suspension Neurological Surgical History: Reports: None Musculoskeletal Surgical History: Reports: Knee Replacement, Shoulder Replacement, Other (See Below) Other Musculoskeletal Surgeries/Procedures:: left femur surgery Dermatological Surgical History: Reports: None Social & Family History - Family History Family Medical History: Noncontributory - Tobacco Use Smoking Status *Q: Never Smoker - Caffeine Use Caffeine Use: Reports: Tea - Recreational Drug Use Recreational Drug Use: No H&P Review of Systems - Review of Systems: Review Of Systems: Comprehensive ROS is negative, except as noted in HPI. Exam - Exam Exam: See Below - Vital Signs Vital Signs: Last Vital Signs Temp 35.6 C L 03/30/20 10:10 Pulse 92 03/30/20 10:10 Resp 22 H 03/30/20 10:10 BP 113/64 03/30/20 10:10 Pulse Ox 97 03/30/20 10:10 Weight: 128.82 kg - Exam Quality Assessment: Supplemental Oxygen General: Alert, Oriented, Cooperative HEENT: Conjunctiva Clear, EACs Clear, EOMI, Hearing Intact, Mucosa Moist & Floyd, Nares Patent, Normal Nasal Septum, Posterior Pharynx Clear, Pupils Equal, Pupils Reactive Neck: Supple, Trachea Midline Lungs: Clear to Auscultation, Normal Respiratory Effort, Other (Bruising over the left breast and lateral left chest wall ) Cardiovascular: Regular Rate, Regular Rhythm GI/Abdominal Exam: Soft, Non-Tender, No Distention, No Mass. No: Guarding, Rigid, Rebound, Tender Rectal (Female) Exam: Normal Exam, Normal Rectal Tone Back Exam: Normal Inspection, Full Range of Motion Extremities: Other (The pateints bilateral lower legs show signs of venous insufficiency. She has 1+ pitting edema and areas of serous drainage. There are chronic small wounds on her anterior shins. ) Peripheral Pulses: 1+: Dorsalis Pedis (L), Dorsalis Pedis (R) Skin: Warm, Dry, Intact Neuro Extensive - Mental Status: Alert, Oriented x3 Neuro Extensive - Motor, Sensory, Reflexes: No: Motor/Sensory Deficits Psychiatric: Alert, Normal Affect, Normal Mood - Patient Data Lab Results Last 24 hrs: Laboratory Results - last 24 hr 03/30/20 03/30/20 03/30/20 Range/Units 10:20 10:20 10:20 WBC 7.11 (4.0-11.0) K/uL RBC 3.31 L (4.30-5.90) M/uL Hgb 8.9 L (12.0-16.0) g/dL Hct 29.0 L (36.0-46.0) % MCV 87.6 (80.0-98.0) fL MCH 26.9 L (27.0-32.0) pg MCHC 30.7 L (31.0-37.0) g/dL RDW Std Deviation 53.4 (28.0-62.0) fl RDW Coeff of Radha 17 H (11.0-15.0) % Plt Count 227 (150-400) K/uL MPV 9.20 (7.40-12.00) fL Neut % (Auto) 69.9 (48.0-80.0) % Lymph % (Auto) 19.7 (16.0-40.0) % Terry % (Auto) 8.7 (0.0-15.0) % Eos % (Auto) 1.4 (0.0-7.0) % Baso % (Auto) 0.3 (0.0-1.5) % Neut # (Auto) 5.0 (1.4-5.7) K/uL Lymph # (Auto) 1.4 (0.6-2.4) K/uL Terry # (Auto) 0.6 (0.0-0.8) K/uL Eos # (Auto) 0.1 (0.0-0.7) K/uL Baso # (Auto) 0.0 (0.0-0.1) K/uL Nucleated RBC % 0.0 /100WBC Nucleated RBCs # 0 K/uL INR Sodium 140 (136-145) mmol/L Potassium 4.1 (3.5-5.1) mmol/L Chloride 105 (98-107) mmol/L Carbon Dioxide 25.5 (21.0-32.0) mmol/L BUN 12 (7.0-18.0) mg/dL Creatinine 1.2 H (0.6-1.0) mg/dL Est Cr Clr Drug Dosing 42.75 mL/min Estimated GFR (MDRD) 44.2 ml/min Glucose 124 H (74-106) mg/dL Calcium 9.0 (8.5-10.1) mg/dL Creatine Kinase 115 (26-308) U/L 03/30/20 Range/Units 10:20 WBC (4.0-11.0) K/uL RBC (4.30-5.90) M/uL Hgb (12.0-16.0) g/dL Hct (36.0-46.0) % MCV (80.0-98.0) fL MCH (27.0-32.0) pg MCHC (31.0-37.0) g/dL RDW Std Deviation (28.0-62.0) fl RDW Coeff of Radha (11.0-15.0) % Plt Count (150-400) K/uL MPV (7.40-12.00) fL Neut % (Auto) (48.0-80.0) % Lymph % (Auto) (16.0-40.0) % Terry % (Auto) (0.0-15.0) % Eos % (Auto) (0.0-7.0) % Baso % (Auto) (0.0-1.5) % Neut # (Auto) (1.4-5.7) K/uL Lymph # (Auto) (0.6-2.4) K/uL Terry # (Auto) (0.0-0.8) K/uL Eos # (Auto) (0.0-0.7) K/uL Baso # (Auto) (0.0-0.1) K/uL Nucleated RBC % /100WBC Nucleated RBCs # K/uL INR 5.11 Sodium (136-145) mmol/L Potassium (3.5-5.1) mmol/L Chloride (98-107) mmol/L Carbon Dioxide (21.0-32.0) mmol/L BUN (7.0-18.0) mg/dL Creatinine (0.6-1.0) mg/dL Est Cr Clr Drug Dosing mL/min Estimated GFR (MDRD) ml/min Glucose (74-106) mg/dL Calcium (8.5-10.1) mg/dL Creatine Kinase (26-308) U/L Result Diagrams: 03/30/20 10:20 03/30/20 10:20 Sepsis Event Note - Evaluation Sepsis Screening Result: No Definite Risk - Focused Exam Vital Signs: Vital Signs Temp Pulse Resp BP Pulse Ox 03/30/20 10:10 35.6 C L 92 22 H 113/64 97 Consult PN Assessment/Plan Procedures: Procedures ASSAY OF BLOOD/URIC ACID (04/10/19) ASSAY OF CK (CPK) (01/18/20) ASSAY OF FERRITIN (04/07/18) ASSAY OF LACTIC ACID (04/10/19) ASSAY OF MAGNESIUM (01/18/20) ASSAY OF NATRIURETIC PEPTIDE (01/18/20) ASSAY OF PHOSPHORUS (01/18/20) ASSAY OF TROPONIN QUANT (01/18/20) ASSAY OF VANCOMYCIN (04/10/19) ASSAY THYROID STIM HORMONE (04/07/18) AUTOMATED RETICULOCYTE COUNT (04/07/18) BLOOD CULTURE FOR BACTERIA (04/10/19) BLOOD TRANSFUSION SERVICE (04/07/18) BLOOD TYPING SEROLOGIC ABO (04/07/18) BLOOD TYPING SEROLOGIC RH(D) (04/07/18) COMPATIBILITY TEST ANTIGLOB (04/07/18) COMPATIBILITY TEST INCUBATE (04/07/18) COMPATIBILITY TEST SPIN (04/07/18) COMPLETE CBC W/AUTO DIFF WBC (01/18/20) COMPREHEN METABOLIC PANEL (01/18/20) CT ABD & PELVIS W/O CONTRAST (04/07/18) CT LUMBAR SPINE W/O DYE (10/19/19) CULTURE AEROBIC IDENTIFY (04/10/19) ELECTROCARDIOGRAM TRACING (01/18/20) EMERGENCY DEPT VISIT (01/18/20) EMERGENCY DEPT VISIT (01/01/20) EMERGENCY DEPT VISIT (04/10/19) EMERGENCY DEPT VISIT (01/12/18) EMERGENCY DEPT VISIT (07/04/17) EMERGENCY DEPT VISIT (05/06/17) EVALUATION OF WHEEZING (11/19/17) EXTREMITY STUDY (01/18/20) EXTREMITY STUDY (04/07/18) GLUCOSE BLOOD TEST (04/10/19) HEMATOCRIT (04/07/18) HEMOGLOBIN (04/07/18) HYDRATE IV INFUSION ADD-ON (04/10/19) HYDRATION IV INFUSION INIT (04/10/19) INSERT TEMP BLADDER CATH (04/07/18) IRON BINDING TEST (04/07/18) METABOLIC PANEL TOTAL CA (04/10/19) MICROBE SUSCEPTIBLE JEFFREY (04/10/19) OCCULT BLD FECES 1-3 TESTS (04/07/18) OFFICE/OUTPATIENT VISIT EST (08/12/19) OT EVAL LOW COMPLEX 30 MIN (04/10/19) PROTHROMBIN TIME (01/18/20) PT EVAL LOW COMPLEX 20 MIN (04/10/19) PT EVAL MOD COMPLEX 30 MIN (04/07/18) PT EVALUATION (02/22/14) RBC ANTIBODY SCREEN (04/07/18) RBC SED RATE AUTOMATED (04/07/18) ROUTINE VENIPUNCTURE (01/18/20) THER/PROPH/DIAG INJ IV PUSH (01/18/20) THER/PROPH/DIAG INJ SC/IM (04/10/19) THER/PROPH/DIAG IV INF ADDON (10/19/18) THER/PROPH/DIAG IV INF INIT (10/19/18) THERAPEUTIC ACTIVITIES (04/10/19) THERAPEUTIC EXERCISES (04/10/19) THROMBOPLASTIN TIME PARTIAL (01/18/20) TX/PRO/DX INJ NEW DRUG ADDON (01/18/20) TX/PRO/DX INJ SAME DRUG WOM[employer] (01/18/20) TX/PROPH/DG ADDL SEQ IV INF (04/07/18) URINALYSIS AUTO W/SCOPE (01/18/20) URINE BACTERIA CULTURE (04/10/19) URINE CULTURE/COLONY COUNT (04/10/19) X-RAY EXAM ABDOMEN 1 VIEW (04/07/18) X-RAY EXAM CHEST 1 VIEW (01/18/20) X-RAY EXAM L-S SPINE 2/3 VWS (01/12/18) X-RAY EXAM OF FEMUR 2/> (01/18/20) X-RAY EXAM OF KNEE 3 (05/06/17) X-RAY EXAM OF PELVIS (01/18/20) X-RAY EXAM OF SHOULDER (01/01/20) X-RAY EXAM OF WRIST (05/06/17) X-RAY EXAM UNILAT RIBS/CHEST (05/06/17) (1) Chest wall contusion SNOMED Code(s): 73845582 Code(s): S20.219A - CONTUSION OF UNSPECIFIED FRONT WALL OF THORAX, INIT ENCNTR Current Visit: No Qualifiers: Encounter type: initial encounter Laterality: left Qualified Code(s): S20.212A - Contusion of left front wall of thorax, initial encounter (2) Fall SNOMED Code(s): 8760806, 340321016 Code(s): W19.XXXA - UNSPECIFIED FALL, INITIAL ENCOUNTER Current Visit: No Qualifiers: Encounter type: initial encounter Qualified Code(s): W19.XXXA - Unspecified fall, initial encounter Problem List Initiated/Reviewed/Updated: Yes Plan: Agree with monitoring patient overnight. Will order CXR for am. I reviewed her images and see no signs of hemothorax. I was unable to identify a definitive rib fracture. Ok to continue anticoagulation for now. Will re-examine patient in the morning and new imaging. If there are any changes overnight please do not hesitate to call. Appreciate my medicine [facility] assistance in caring for this patient.
[2020-03-30] MEDS ORDERED: Docusate Sodium 100 MG Cap PO PRN (13:46)
[2020-03-30] MEDS ORDERED: Acetaminophen 325 MG Tab PO PRN (13:46)
[2020-03-30] MEDS ORDERED: Ondansetron 4 MG/2 ML SDV IVPUSH PRN (13:46)
[2020-03-30] MEDS ORDERED: Morphine 2 MG/ML SYRINGE IVPUSH PRN (13:57)
--- NOTE | 2020-03-30 14:07 | PCM.HP.2 ---
H&P History of Present Illness - General Date of Service: 03/30/20 Admit Problem/Dx: Admission Diagnosis/Problem Admission Diagnosis/Problem Rib fracture, fall, supratherapeutic INR Source of Information: Patient, Old Records (PCP, Dr Penn notes reviewed) History Limitations: Reports: No Limitations - History of Present Illness Initial Comments - Free Text/Narative: This 74 year old female with pmh of chronic afib, diastolic CHF with peripheral edema and lymphedema, gout, anemia, and osteoporosis presented to the ED with complaints of a fall. She reports she got up from bed early this morning to go to the bathroom. She was using her wheelchair as a walker to steady her gait to the bathroom. She reports she felt weak all over and then stated falling. He landed on her abdomen, unsure if she struck her head or not. She was wedged between her bed and wheel chair and noted to be having l sided anterior chest pain. She managed to sit up an call 911 to come help her. She denies chest pain or overt dizziness with the event. No shortness of breath or abdominal pain. No headache, sinus congestion, sore throat or neck pain. She denies fevers of chills. No urinary concerns at home no diarrhea or constipation. No black or bloody BMs. She reports she has been following with PCP lately for peripheral edema and OT as outpatient for lymphedema. She reports she can't stand SAMIR hose. Pain currently is 3/10, with movement it definitely increases. In the ED anemia noted at 8.9, baseline 9.5. INR 5.11. Na 140, K+4.1 Cr 1.2 BUN 12, CXR negative. Head CT negative, cervical spine negative, abdomen/pelvis CT negative. Chest CT revealed left lateral 8th rib fracture and thyroid nodule. She was given Morphine and lidocaine patch for pain. Dr Brothers consulted due to trauma alert being called. COVID negative. She will be admitted observation due to fall and further monitoring secondary to anticoagulation. PCP, Dr Penn abdomen, chest, ribs, low back, right leg Pain Score (Numeric/FACES): 10 - Related Data Allergies/Adverse Reactions: Allergies Allergy/AdvReac Type Severity Reaction Status Date / Time amoxicillin Allergy Rash Verified 03/30/20 15:26 cephalexin monohydrate Allergy Rash Verified 03/30/20 15:26 [From Keflex] Penicillins Allergy Rash Verified 03/30/20 15:26 rofecoxib [From Vioxx] Allergy Rash Verified 03/30/20 15:26 tetanus toxoid, adsorbed Allergy Rash Verified 03/30/20 15:26 valacyclovir HCl Allergy Rash Verified 03/30/20 15:26 [From Valtrex] wool Allergy Rash Verified 03/30/20 15:26 ferlacit Allergy Severe Hypotension Uncoded 03/30/20 15:26 Avalox Allergy Rash Uncoded 03/30/20 15:26 Bextra Allergy Rash Uncoded 03/30/20 15:26 celebrex Allergy Rash Uncoded 03/30/20 15:26 macrobid Allergy Rash Uncoded 03/30/20 15:26 plastic tape Allergy Rash Uncoded 03/30/20 15:26 Zofran Allergy Rash Uncoded 03/30/20 15:26 Home Medications: Home Meds Bumetanide [Bumex] 2 mg PO TID 04/12/19 [History] Gabapentin [Neurontin] 300 mg PO TID 04/12/19 [History] Latanoprost/Pf [Latanoprost 0.005% Eye Drop] 7.5 ml OP DAILY 04/12/19 [History] Metoprolol Succinate 100 mg PO DAILY 04/12/19 [History] allopurinoL [Zyloprim] 150 mg PO DAILY 04/12/19 [History] Acetaminophen [Tylenol] 650 mg PO Q6H PRN tablet 04/16/19 [Rx] Warfarin Sodium [Coumadin] 6 mg PO ASDIRECTED 10/19/19 [History] Warfarin Sodium [Coumadin] 7 mg PO ASDIRECTED 10/19/19 [History] diphenhydrAMINE [Benadryl] 50 mg PO ASDIRECTED 10/19/19 [History] metOLazone [Metolazone] 2.5 mg PO ASDIRECTED 10/19/19 [History] rOPINIRole [Requip] 3 mg PO TID PRN 10/19/19 [History] Albuterol [Proair HFA] 2 puff INH ASDIRECTED PRN 01/18/20 [History] Cyclobenzaprine [Flexeril] 10 mg PO TID PRN 06/23/20 [History] Ferrous Sulfate [High Potency Iron] 65 mg PO DAILY 01/18/20 [History] Diclofenac Sodium [Diclo Gel] 1 applic TOP QID PRN 03/30/20 [History] Potassium Citrate [Potassium Citrate ER] 10 meq PO DAILY 03/30/20 [History] traMADol HCl [Tramadol HCl] 50 mg PO Q12HR PRN 03/30/20 [History] Past Medical History HEENT History: Reports: Cataract, Impaired Vision 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 Denies: Diabetes, Type II Hematologic History: Reports: Anemia Immunologic History: Reports: None Oncologic (Cancer) History: Reports: Malignant Melanoma Dermatologic History: Reports: Other (See Below) Other Dermatologic History: melanoma to top of head - Infectious Disease History Infectious Disease History: Reports: Chicken Pox, Measles, Mumps - Past Surgical History HEENT Surgical History: Reports: Cataract Surgery, Tonsillectomy Cardiovascular Surgical History: Reports: Other (See Below) Other Cardiovascular Surgeries/Procedures: angiogram without stents Respiratory Surgical History: Reports: Other (See Below) Other Respiratory Surgeries/Procedures: bronchoscopy February 2019 GI Surgical History: Reports: Appendectomy, Cholecystectomy, Colonoscopy, Other (See Below) Other GI Surgeries/Procedures: gastric bypass surgery Female Surgical History: Reports: Hysterectomy, Other (See Below) Other Female Surgeries/Procedures: bladder suspension Neurological Surgical History: Reports: None Musculoskeletal Surgical History: Reports: Knee Replacement, Shoulder Replacement, Other (See Below) Other Musculoskeletal Surgeries/Procedures:: left femur surgery Dermatological Surgical History: Reports: None Social & Family History - Family History Family Medical History: Noncontributory - Tobacco Use Smoking Status *Q: Never Smoker - Caffeine Use Caffeine Use: Reports: Tea - Recreational Drug Use Recreational Drug Use: No H&P Review of Systems - Review of Systems: Review Of Systems: See Below General: Reports: No Symptoms. Denies: Fever, Chills, Weakness HEENT: Reports: No Symptoms. Denies: Headaches, Sinus Congestion, Sore Throat, Vertigo Pulmonary: Reports: No Symptoms. Denies: Shortness of Breath, Wheezing, Cough Cardiovascular: Reports: Chest Pain (L anterior chest), Edema (significant to legs, which is actually improved.). Denies: Palpitations, Dyspnea on Exertion Gastrointestinal: Reports: No Symptoms. Denies: Abdominal Pain, Black Stool, Bloody Stool, Nausea, Vomiting Genitourinary: Reports: No Symptoms. Denies: Dysuria, Frequency, Burning Skin: Reports: Bruising (L chest and breast) Neurological: Reports: No Symptoms Hematologic/Lymphatic: Reports: No Symptoms Immunologic: Reports: No Symptoms Exam - Exam Exam: See Below - Vital Signs Vital Signs: Last Vital Signs Temp 96.1 F L 03/30/20 10:10 Pulse 92 03/30/20 10:10 Resp 22 H 03/30/20 10:10 BP 113/64 03/30/20 10:10 Pulse Ox 97 03/30/20 10:10 Weight: 128.82 kg - Exam General: Alert, Oriented, Cooperative HEENT: Conjunctiva Clear, Mucosa Moist & Vancleave, Pupils Equal Neck: Supple, Trachea Midline Lungs: Clear to Auscultation, Normal Respiratory Effort Cardiovascular: Regular Rate, Irregular Rhythm GI/Abdominal Exam: Normal Bowel Sounds, Soft, Non-Tender Extremities: Normal Inspection, Normal Range of Motion, Non-Tender, Pedal Edema (+2 pitting edema bilaterally extending distally from hips to feet) Skin: Ecchymosis (bruising to L anterior chest and breast. no crepitus noted. ) Neuro Extensive - Mental Status: Alert, Oriented x3 Neuro Extensive - Motor, Sensory, Reflexes: CN II-XII Intact, Normal Gait Psychiatric: Alert, Normal Affect, Normal Mood - Patient Data Lab Results Last 24 hrs: Laboratory Results - last 24 hr 03/30/20 03/30/20 03/30/20 Range/Units 10:20 10:20 10:20 WBC 7.11 (4.0-11.0) K/uL RBC 3.31 L (4.30-5.90) M/uL Hgb 8.9 L (12.0-16.0) g/dL Hct 29.0 L (36.0-46.0) % MCV 87.6 (80.0-98.0) fL MCH 26.9 L (27.0-32.0) pg MCHC 30.7 L (31.0-37.0) g/dL RDW Std Deviation 53.4 (28.0-62.0) fl RDW Coeff of Radha 17 H (11.0-15.0) % Plt Count 227 (150-400) K/uL MPV 9.20 (7.40-12.00) fL Neut % (Auto) 69.9 (48.0-80.0) % Lymph % (Auto) 19.7 (16.0-40.0) % [place] % (Auto) 8.7 (0.0-15.0) % Eos % (Auto) 1.4 (0.0-7.0) % Baso % (Auto) 0.3 (0.0-1.5) % Neut # (Auto) 5.0 (1.4-5.7) K/uL Lymph # (Auto) 1.4 (0.6-2.4) K/uL [place] # (Auto) 0.6 (0.0-0.8) K/uL Eos # (Auto) 0.1 (0.0-0.7) K/uL Baso # (Auto) 0.0 (0.0-0.1) K/uL Nucleated RBC % 0.0 /100WBC Nucleated RBCs # 0 K/uL INR Sodium 140 (136-145) mmol/L Potassium 4.1 (3.5-5.1) mmol/L Chloride 105 (98-107) mmol/L Carbon Dioxide 25.5 (21.0-32.0) mmol/L BUN 12 (7.0-18.0) mg/dL Creatinine 1.2 H (0.6-1.0) mg/dL Est Cr Clr Drug Dosing 42.75 mL/min Estimated GFR (MDRD) 44.2 ml/min Glucose 124 H (74-106) mg/dL Calcium 9.0 (8.5-10.1) mg/dL Creatine Kinase 115 (26-308) U/L SARS Virus RNA (PCR) (NEGATIVE) 03/30/20 03/30/20 Range/Units 10:20 12:18 WBC (4.0-11.0) K/uL RBC (4.30-5.90) M/uL Hgb (12.0-16.0) g/dL Hct (36.0-46.0) % MCV (80.0-98.0) fL MCH (27.0-32.0) pg MCHC (31.0-37.0) g/dL RDW Std Deviation (28.0-62.0) fl RDW Coeff of Radha (11.0-15.0) % Plt Count (150-400) K/uL MPV (7.40-12.00) fL Neut % (Auto) (48.0-80.0) % Lymph % (Auto) (16.0-40.0) % [place] % (Auto) (0.0-15.0) % Eos % (Auto) (0.0-7.0) % Baso % (Auto) (0.0-1.5) % Neut # (Auto) (1.4-5.7) K/uL Lymph # (Auto) (0.6-2.4) K/uL [place] # (Auto) (0.0-0.8) K/uL Eos # (Auto) (0.0-0.7) K/uL Baso # (Auto) (0.0-0.1) K/uL Nucleated RBC % /100WBC Nucleated RBCs # K/uL INR 5.11 Sodium (136-145) mmol/L Potassium (3.5-5.1) mmol/L Chloride (98-107) mmol/L Carbon Dioxide (21.0-32.0) mmol/L BUN (7.0-18.0) mg/dL Creatinine (0.6-1.0) mg/dL Est Cr Clr Drug Dosing mL/min Estimated GFR (MDRD) ml/min Glucose (74-106) mg/dL Calcium (8.5-10.1) mg/dL Creatine Kinase (26-308) U/L SARS Virus RNA (PCR) NEGATIVE (NEGATIVE) Result Diagrams: 03/30/20 10:20 03/30/20 10:20 Sepsis Event Note - Evaluation Sepsis Screening Result: No Definite Risk - Focused Exam Vital Signs: Vital Signs Temp Pulse Resp BP Pulse Ox 03/30/20 10:10 96.1 F L 92 22 H 113/64 97 - Problem List (1) Fall SNOMED Code(s): 2963593, 224718560 ICD Code: W19.XXXA - UNSPECIFIED FALL, INITIAL ENCOUNTER Status: Acute Current Visit: No Qualifiers: Encounter type: initial encounter Qualified Code(s): W19.XXXA - Unspecified fall, initial encounter (2) Rib fracture SNOMED Code(s): 56793163 ICD Code: S22.39XA - FRACTURE OF ONE RIB, UNSP SIDE, INIT FOR CLOS FX Status: Acute Current Visit: Yes Qualifiers: Encounter type: initial encounter Rib fracture type: single rib Fracture type: closed Laterality: left Qualified Code(s): S22.32XA - Fracture of one rib, left side, initial encounter for closed fracture (3) Chest wall contusion SNOMED Code(s): 12771201 ICD Code: S20.219A - CONTUSION OF UNSPECIFIED FRONT WALL OF THORAX, INIT ENCNTR Status: Acute Current Visit: No Qualifiers: Encounter type: initial encounter Laterality: left Qualified Code(s): S2 0.212A - Contusion of left front wall of thorax, initial encounter (4) Generalized weakness SNOMED Code(s): 97253526 ICD Code: R53.1 - WEAKNESS Status: Acute Current Visit: No (5) Elevated INR SNOMED Code(s): 206530697 ICD Code: R79.1 - ABNORMAL COAGULATION PROFILE Status: Acute Current Visit: Yes (6) Diastolic heart failure SNOMED Code(s): 942313863 ICD Code: I50.30 - UNSPECIFIED DIASTOLIC (CONGESTIVE) HEART FAILURE Status: Chronic Current Visit: Yes Qualifiers: Heart failure chronicity: chronic Qualified Code(s): I50.32 - Chronic diastolic (congestive) heart failure (7) Atrial fibrillation SNOMED Code(s): 70037372 ICD Code: I48.91 - UNSPECIFIED ATRIAL FIBRILLATION Status: Chronic Current Visit: Yes (8) Anticoagulated with warfarin SNOMED Code(s): 09624652 ICD Code: Z79.01 - CUT OFF MACHINE UNLOADER (CURRENT) USE OF ANTICOAGULANTS Status: Chronic Current Visit: Yes (9) Degenerative disc disease SNOMED Code(s): 16806253 ICD Code: VNL1226 - Status: Chronic Current Visit: No Qualifiers: Spinal region: lumbar Qualified Code(s): M51.36 - Other intervertebral disc degeneration, lumbar region (10) Gout SNOMED Code(s): 41265366 ICD Code: M10.9 - GOUT, UNSPECIFIED Status: Chronic Current Visit: No (11) Lumbar back pain SNOMED Code(s): 054204320 ICD Code: M54.5 - LOW BACK PAIN Status: Chronic Current Visit: No (12) Anemia SNOMED Code(s): 486885940 ICD Code: D64.9 - ANEMIA, UNSPECIFIED Status: Chronic Priority: High Current Visit: No Qualifiers: Anemia type: unspecified type Qualified Code(s): D64.9 - Anemia, unspecified (13) Venous stasis dermatitis of both lower extremities SNOMED Code(s): 88373698 ICD Code: I87.2 - VENOUS INSUFFICIENCY (CHRONIC) (PERIPHERAL) Status: Chronic Current Visit: Yes Problem List Initiated/Reviewed/Updated: Yes Orders Last 24hrs: Active Orders 24 hr Category Date Time Status Patient Status [ADT] Routine ADT 03/30/20 12:08 Active Elevate Extremity [RC] BID Care 03/30/20 13:57 Ordered Height and Weight [RC] DAILY Care 03/30/20 13:46 Ordered IS (RT) [RT Incentive Spirometry] [RC] Q1HWA Care 03/30/20 13:59 Ordered Intake and Output Strict [RC] ASDIRECTED Care 03/30/20 13:51 Ordered May Shower [RC] ASDIRECTED Care 03/30/20 13:46 Ordered Neuro Check [RC] Q4H Care 03/30/20 13:55 Ordered Oxygen Therapy [RC] PRN Care 03/30/20 13:46 Ordered Turn, Cough, Deep Breathe [RC] .PRN Care 03/30/20 13:59 Ordered Up With Assistance [RC] ASDIRECTED Care 03/30/20 13:46 Ordered VTE/DVT Education [RC] PER UNIT ROUTINE Care 03/30/20 13:46 Ordered Vital Signs [RC] Q4H Care 03/30/20 13:46 Ordered OT Evaluation and Treatment [CONS] Routine Cons 03/30/20 13:52 Ordered PT Evaluation and Treatment [CONS] Routine Cons 03/30/20 13:52 Ordered 2 Gram Sodium Diet [DIET] Diet 03/30/20 Lunch Ordered Chest 1V Frontal [CR] Timed Exams 03/31/20 07:00 Ordered BASIC METABOLIC PANEL,BMP [CHEM] AM Lab 03/31/20 05:11 Ordered CBC WITH AUTO DIFF [HEME] AM Lab 03/31/20 05:11 Ordered CORONAVIRUS COVID-19 PCR PHL Stat Lab 03/30/20 11:53 Ordered INR,PT,PROTHROMBIN TIME [COAG] AM Lab 03/31/20 05:11 Ordered Acetaminophen [TylenoL] Med 03/30/20 13:46 Ordered 650 mg PO Q4H PRN Docusate Sodium [Colace] Med 03/30/20 21:00 Ordered 100 mg PO BID Morphine Med 03/30/20 13:57 Ordered 2 mg IVPUSH Q3H PRN Ondansetron [Zofran] Med 03/30/20 13:46 Ordered 4 mg IVPUSH Q4H PRN Sodium Chloride 0.9% [Saline Flush] Med 03/30/20 13:46 Ordered 2.5 ml FLUSH ASDIRECTED PRN Saline Lock Insert [OM.PC] Routine Oth 03/30/20 13:46 Ordered Resuscitation Status Routine Resus Stat 03/30/20 13:46 Ordered Medication Orders Acetaminophen (Tylenol) 650 mg PO Q4H PRN PRN Reason: Pain (Mild 1-3)/fever Docusate Sodium (Colace) 100 mg PO BID SITA Morphine Sulfate (Morphine) 2 mg IVPUSH Q3H PRN PRN Reason: Pain Ondansetron HCl (Zofran) 4 mg IVPUSH Q4H PRN PRN Reason: Nausea Sodium Chloride (Saline Flush) 2.5 ml FLUSH ASDIRECTED PRN PRN Reason: Keep Vein Open Assessment/Plan Comment:: This 73 year old female admitted with fall, L lateral 8th rib fracture 1. Fall with rib fracture - Consult Dr Brothers for trauma - CXR in am - PT/OT to evaluate and treat - Encourage IS and CDB - Morphine for pain 2 mg IV PRN - Tramadol PRN for pain - Unsure of mechanism of fall, she doesn't remember parts, which is concerning f or syncope - ECHO - Monitor on telemetry - Obtain Orthostatic VS on admission - Check UA 2. Afib with Coumadin - INR 5.11, hold Coumadin today. Recheck INR in am - Continue home medications, Metoprolol and Diltiazem 3. Anemia, chronic - No active bleeding, baseline hgb 9.5 - Monitor daily 4. CHF Diastolic, chronic - Peripheral edema noted, but at baseline - Venous stasis dermatitis, no active infection. - Reports legs are improving from what they were previous. - Continue Bumex - Consult OT VTE prophylaxis: Coumadin Code Status: FULL CODE Dispo: 1-2 days
[2020-03-30] MEDS ORDERED: Albuterol HFA 18 Gm Inhaler INH PRN (16:39)
[2020-03-30] MEDS ORDERED: rOPINIRole 1 MG Tab PO PRN (16:39)
[2020-03-30] MEDS ORDERED: Cyclobenzaprine 10 MG Tab PO PRN (16:39)
[2020-03-30] MEDS ORDERED: DICLOFENAC SODIUM TOP PRN (16:39)
[2020-03-30] MEDS: traMADol 50 MG Tab PO PRN (19:40)
[2020-03-30] MEDS: Docusate Sodium 100 MG Cap PO SCH (20:54)
[2020-03-30] MEDS ORDERED: Levofloxacin/Dextrose 5%-Water 750 MG in Premix Bag 1 BAG IV SCH (21:00)
[2020-03-30] MEDS: Gabapentin 300 MG Cap PO SCH (21:01)
[2020-03-30] MEDS: Bumetanide 1 MG Tab PO SCH (21:01)
[2020-03-31] MEDS: traMADol 50 MG Tab PO PRN ×2 (00:28→09:46)
[2020-03-31] MEDS: Gabapentin 300 MG Cap PO SCH ×2 (06:44→14:08)
[2020-03-31] MEDS: Bumetanide 1 MG Tab PO SCH ×2 (06:44→14:09)
[2020-03-31 07:16] LABS: CARBON DIOXIDE,CO2 27.2 mmol/L (21.0-32.0); POTASSIUM,K 3.8 mmol/L (3.5-5.1)
--- NOTE | 2020-03-31 07:21 | CR ---
INDICATION: Left lateral 8th rib fracture. Follow-up TECHNIQUE: Chest 1 view Comparison: 03/30/[address] Findings: Cardiac silhouette size is within normal limits. Aorta is mildly tortuous, similar to prior. No focal lung consolidation, pleural effusion or pneumothorax. Possible nondisplaced left lateral 8th rib fracture better assessed on prior CT. Bilateral shoulder arthroplasties. Impression: No acute cardiopulmonary abnormality. Dictated by Ferdinand Moore MD @ Mar 31 2020 7:16AM Signed by Dr. Ferdinand Moore @ Mar 31 2020 7:19AM
[2020-03-31] MEDS ORDERED: Metoprolol Succinate 100 MG Tab.ER PO SCH (09:00)
[2020-03-31] MEDS ORDERED: Potassium Chloride 10 MEQ Tab.ER PO SCH (09:00)
[2020-03-31] MEDS ORDERED: Allopurinol 100 MG Tab PO SCH (09:00)
[2020-03-31] MEDS ORDERED: Ferrous Sulfate 325 MG Tab PO SCH (09:00)
[2020-03-31] MEDS ORDERED: Non-Formulary Medication 1 Each (Latanoprost/Pf [Latanoprost 0.005% Eye Drop] 7.5 ML) OP SCH (09:00)
[2020-03-31] MEDS: Docusate Sodium 100 MG Cap PO SCH (09:33)
--- NOTE | 2020-03-31 09:49 | PCM.CONSN ---
- General Info Date of Service: 03/31/20 Functional Status: Reports: Pain Controlled, Tolerating Diet, Ambulating, Urinating, Other (New bruising and pain on right breast this am ) - Review of Systems General: Reports: No Symptoms HEENT: Reports: No Symptoms Pulmonary: Reports: Other (Pain with deep breathing. Pain along breasts ) Cardiovascular: Reports: No Symptoms Gastrointestinal: Reports: No Symptoms Genitourinary: Reports: No Symptoms Musculoskeletal: Reports: No Symptoms Skin: Reports: No Symptoms Neurological: Reports: No Symptoms Psychiatric: Reports: No Symptoms - Patient Data Vitals - Most Recent: Last Vital Signs Temp 37.2 C 03/31/20 05:00 Pulse 100 03/31/20 09:34 Resp 18 03/31/20 05:00 BP 111/61 03/31/20 09:34 Pulse Ox 97 03/31/20 05:00 Orthostatic Blood Pressure [ 117/87 Standing] Orthostatic Blood Pressure [ 130/59 Sitting] Orthostatic Blood Pressure [ 116/70 Supine] Weight - Most Recent: 126.552 kg I&O - Last 24 Hours: Intake & Output 03/30/20 03/31/20 03/31/20 22:59 06:59 14:59 Intake Total 350 Output Total 2875 Balance -2525 Lab Results Last 24 Hours: Laboratory Results - last 24 hr 03/30/20 03/30/20 03/30/20 Range/Units 10:20 10:20 10:20 WBC 7.11 (4.0-11.0) K/uL RBC 3.31 L (4.30-5.90) M/uL Hgb 8.9 L (12.0-16.0) g/dL Hct 29.0 L (36.0-46.0) % MCV 87.6 (80.0-98.0) fL MCH 26.9 L (27.0-32.0) pg MCHC 30.7 L (31.0-37.0) g/dL RDW Std Deviation 53.4 (28.0-62.0) fl RDW Coeff of Radha 17 H (11.0-15.0) % Plt Count 227 (150-400) K/uL MPV 9.20 (7.40-12.00) fL Neut % (Auto) 69.9 (48.0-80.0) % Lymph % (Auto) 19.7 (16.0-40.0) % [place] % (Auto) 8.7 (0.0-15.0) % Eos % (Auto) 1.4 (0.0-7.0) % Baso % (Auto) 0.3 (0.0-1.5) % Neut # (Auto) 5.0 (1.4-5.7) K/uL Lymph # (Auto) 1.4 (0.6-2.4) K/uL [place] # (Auto) 0.6 (0.0-0.8) K/uL Eos # (Auto) 0.1 (0.0-0.7) K/uL Baso # (Auto) 0.0 (0.0-0.1) K/uL Nucleated RBC % 0.0 /100WBC Nucleated RBCs # 0 K/uL INR Sodium 140 (136-145) mmol/L Potassium 4.1 (3.5-5.1) mmol/L Chloride 105 (98-107) mmol/L Carbon Dioxide 25.5 (21.0-32.0) mmol/L BUN 12 (7.0-18.0) mg/dL Creatinine 1.2 H (0.6-1.0) mg/dL Est Cr Clr Drug Dosing 42.75 mL/min Estimated GFR (MDRD) 44.2 ml/min Glucose 124 H (74-106) mg/dL Calcium 9.0 (8.5-10.1) mg/dL Creatine Kinase 115 (26-308) U/L Urine Color Urine Appearance Urine pH (5.0-8.0) Ur Specific [place] (1.001-1.035) Urine Protein (NEGATIVE) mg/dL Urine Glucose (UA) (NEGATIVE) mg/dL Urine Ketones (NEGATIVE) mg/dL Urine Occult Blood (NEGATIVE) Urine Nitrite (NEGATIVE) Urine Bilirubin (NEGATIVE) Urine Urobilinogen (<2.0) EU/dL Ur Leukocyte Esterase (NEGATIVE) Urine RBC (0-2/HPF) Urine WBC (0-5/HPF) Ur Epithelial Cells (NONE-FEW) Urine Bacteria (NEGATIVE) SARS Virus RNA (PCR) (NEGATIVE) 03/30/20 03/30/20 03/30/20 Range/Units 10:20 12:18 19:25 WBC (4.0-11.0) K/uL RBC (4.30-5.90) M/uL Hgb (12.0-16.0) g/dL Hct (36.0-46.0) % MCV (80.0-98.0) fL MCH (27.0-32.0) pg MCHC (31.0-37.0) g/dL RDW Std Deviation (28.0-62.0) fl RDW Coeff of Radha (11.0-15.0) % Plt Count (150-400) K/uL MPV (7.40-12.00) fL Neut % (Auto) (48.0-80.0) % Lymph % (Auto) (16.0-40.0) % [place] % (Auto) (0.0-15.0) % Eos % (Auto) (0.0-7.0) % Baso % (Auto) (0.0-1.5) % Neut # (Auto) (1.4-5.7) K/uL Lymph # (Auto) (0.6-2.4) K/uL [place] # (Auto) (0.0-0.8) K/uL Eos # (Auto) (0.0-0.7) K/uL Baso # (Auto) (0.0-0.1) K/uL Nucleated RBC % /100WBC Nucleated RBCs # K/uL INR 5.11 Sodium (136-145) mmol/L Potassium (3.5-5.1) mmol/L Chloride (98-107) mmol/L Carbon Dioxide (21.0-32.0) mmol/L BUN (7.0-18.0) mg/dL Creatinine (0.6-1.0) mg/dL Est Cr Clr Drug Dosing mL/min Estimated GFR (MDRD) ml/min Glucose (74-106) mg/dL Calcium (8.5-10.1) mg/dL Creatine Kinase (26-308) U/L Urine Color YELLOW Urine Appearance CLEAR Urine pH 6.0 (5.0-8.0) Ur Specific [place] 1.010 (1.001-1.035) Urine Protein NEGATIVE (NEGATIVE) mg/dL Urine Glucose (UA) NEGATIVE (NEGATIVE) mg/dL Urine Ketones NEGATIVE (NEGATIVE) mg/dL Urine Occult Blood NEGATIVE (NEGATIVE) Urine Nitrite POSITIVE H (NEGATIVE) Urine Bilirubin NEGATIVE (NEGATIVE) Urine Urobilinogen 0.2 (<2.0) EU/dL Ur Leukocyte Esterase NEGATIVE (NEGATIVE) Urine RBC 0-1 (0-2/HPF) Urine WBC 0-1 (0-5/HPF) Ur Epithelial Cells RARE (NONE-FEW) Urine Bacteria 3+ H (NEGATIVE) SARS Virus RNA (PCR) NEGATIVE (NEGATIVE) 03/31/20 03/31/20 03/31/20 Range/Units 06:36 06:36 06:36 WBC 5.75 (4.0-11.0) K/uL RBC 3.35 L (4.30-5.90) M/uL Hgb 8.9 L (12.0-16.0) g/dL Hct 29.3 L (36.0-46.0) % MCV 87.5 (80.0-98.0) fL MCH 26.6 L (27.0-32.0) pg MCHC 30.4 L (31.0-37.0) g/dL RDW Std Deviation 53.4 (28.0-62.0) fl RDW Coeff of Radha 17 H (11.0-15.0) % Plt Count 254 (150-400) K/uL MPV 9.70 (7.40-12.00) fL Neut % (Auto) 64.5 (48.0-80.0) % Lymph % (Auto) 24.0 (16.0-40.0) % [place] % (Auto) 8.7 (0.0-15.0) % Eos % (Auto) 2.6 (0.0-7.0) % Baso % (Auto) 0.2 (0.0-1.5) % Neut # (Auto) 3.7 (1.4-5.7) K/uL Lymph # (Auto) 1.4 (0.6-2.4) K/uL [place] # (Auto) 0.5 (0.0-0.8) K/uL Eos # (Auto) 0.2 (0.0-0.7) K/uL Baso # (Auto) 0.0 (0.0-0.1) K/uL Nucleated RBC % 0.0 /100WBC Nucleated RBCs # 0 K/uL INR 4.90 Sodium 141 (136-145) mmol/L Potassium 3.8 (3.5-5.1) mmol/L Chloride 103 (98-107) mmol/L Carbon Dioxide 27.2 (21.0-32.0) mmol/L BUN 11 (7.0-18.0) mg/dL Creatinine 1.3 H (0.6-1.0) mg/dL Est Cr Clr Drug Dosing 39.46 mL/min Estimated GFR (MDRD) 40.3 ml/min Glucose 105 (74-106) mg/dL Calcium 9.0 (8.5-10.1) mg/dL Creatine Kinase (26-308) U/L Urine Color Urine Appearance Urine pH (5.0-8.0) Ur Specific [place] (1.001-1.035) Urine Protein (NEGATIVE) mg/dL Urine Glucose (UA) (NEGATIVE) mg/dL Urine Ketones (NEGATIVE) mg/dL Urine Occult Blood (NEGATIVE) Urine Nitrite (NEGATIVE) Urine Bilirubin (NEGATIVE) Urine Urobilinogen (<2.0) EU/dL Ur Leukocyte Esterase (NEGATIVE) Urine RBC (0-2/HPF) Urine WBC (0-5/HPF) Ur Epithelial Cells (NONE-FEW) Urine Bacteria (NEGATIVE) SARS Virus RNA (PCR) (NEGATIVE) Med Orders - Current: Current Medications Acetaminophen (Tylenol) 650 mg PO Q4H PRN PRN Reason: Pain (Mild 1-3)/fever Albuterol (Ventolin Hfa) 2 gm INH ASDIRECTED PRN PRN Reason: Shortness of Breath Allopurinol (Zyloprim) 150 mg PO DAILY [facility] Last Admin: 03/31/20 09:33 Dose: 150 mg Documented by: Bumetanide (Bumex) 2 mg PO TID [facility] Last Admin: 03/31/20 06:44 Dose: 2 mg Documented by: Cyclobenzaprine HCl (Flexeril) 10 mg PO TID PRN PRN Reason: Spasms Docusate Sodium (Colace) 100 mg PO BID [facility] Last Admin: 03/31/20 09:33 Dose: Not Given Documented by: Ferrous Sulfate (Ferrous Sulfate) 65 mg PO DAILY [facility] Gabapentin (Neurontin) 300 mg PO TID [facility] Last Admin: 03/31/20 06:44 Dose: 300 mg Documented by: Levofloxacin/Dextrose 750 mg/ (Premix) 150 mls @ 100 mls/hr IV Q48H [facility] Last Admin: 03/30/20 20:54 Dose: 100 mls/hr Documented by: Metoprolol Succinate (Toprol Xl) 100 mg PO DAILY [facility] Last Admin: 03/31/20 09:34 Dose: 100 mg Documented by: Morphine Sulfate (Morphine) 2 mg IVPUSH Q3H PRN PRN Reason: Pain Non-Formulary Medication (Latanoprost/Pf [Latanoprost 0.005% Eye Drop]) 7.5 ml OP DAILY [facility] Ondansetron HCl (Zofran) 4 mg IVPUSH Q4H PRN PRN Reason: Nausea Diclofenac Sodium [ (Diclo Gel] 1 Applic) 1 each TOP QID PRN PRN Reason: Pain Potassium Chloride (Klor-Con 10) 10 meq PO DAILY [facility] Last Admin: 03/31/20 09:32 Dose: 10 meq Documented by: Ropinirole HCl (Requip) 3 mg PO TID PRN PRN Reason: restless leg Last Admin: 03/30/20 21:05 Dose: 3 mg Documented by: Sodium Chloride (Saline Flush) 2.5 ml FLUSH ASDIRECTED PRN PRN Reason: Keep Vein Open Tramadol HCl (Ultram) 50 mg PO Q4H PRN PRN Reason: Pain Last Admin: 03/31/20 00:28 Dose: 50 mg Documented by: Discontinued Medications Acetaminophen (Tylenol Extra Strength) 1,000 mg PO ONETIME ONE Stop: 03/30/20 11:52 Last Admin: 03/30/20 12:19 Dose: 1,000 mg Documented by: Docusate Sodium (Colace) 100 mg PO BID PRN PRN Reason: Constipation Lidocaine (Lidoderm 5%) 700 mg TOP ONETIME ONE Stop: 03/30/20 11:52 Last Admin: 03/30/20 12:21 Dose: 700 mg Documented by: Morphine Sulfate (Morphine) 2 mg IVPUSH ONETIME ONE Stop: 03/30/20 10:18 Last Admin: 03/30/20 10:22 Dose: 2 mg Documented by: Sodium Chloride (Saline Flush) 10 ml FLUSH ASDIRECTED PRN PRN Reason: Keep Vein Open Last Admin: 03/30/20 10:21 Dose: 10 ml Documented by: Sodium Chloride (Saline Flush) 2.5 ml FLUSH ASDIRECTED PRN PRN Reason: Keep Vein Open Last Admin: 03/30/20 10:22 Dose: 2.5 ml Documented by: - Exam Quality Assessment: Supplemental Oxygen General: Alert, Oriented HEENT: Pupils Equal, Pupils Reactive Neck: Supple, Trachea Midline Lungs: Clear to Auscultation, Normal Respiratory Effort Cardiovascular: Regular Rate, Regular Rhythm GI/Abdominal Exam: Soft, Non-Tender, No Distention, No Mass Back Exam: Normal Inspection, Full Range of Motion Extremities: Other (No change. No new areas of brusing ) Skin: Ecchymosis (Large brusing over left breast. New area of bruising on the right lateral breast. ) Neurological: No New Focal Deficit Psy/Mental Status: Alert, Normal Affect, Normal Mood Sepsis Event Note - Evaluation Sepsis Screening Result: No Definite Risk - Focused Exam Vital Signs: Vital Signs Temp Pulse Pulse Resp BP BP Pulse Ox 03/31/20 09:34 100 111/61 03/31/20 05:00 37.2 C 104 H 18 122/65 97 03/31/20 00:05 35.9 C L 97 19 116/73 99 Consult PN Assessment/Plan Procedures: Procedures ASSAY OF BLOOD/URIC ACID (04/10/19) ASSAY OF CK (CPK) (01/18/20) ASSAY OF FERRITIN (04/07/18) ASSAY OF LACTIC ACID (04/10/19) ASSAY OF MAGNESIUM (01/18/20) ASSAY OF NATRIURETIC PEPTIDE (01/18/20) ASSAY OF PHOSPHORUS (01/18/20) ASSAY OF TROPONIN QUANT (01/18/20) ASSAY OF VANCOMYCIN (04/10/19) ASSAY THYROID STIM HORMONE (04/07/18) AUTOMATED RETICULOCYTE COUNT (04/07/18) BLOOD CULTURE FOR BACTERIA (04/10/19) BLOOD TRANSFUSION SERVICE (04/07/18) BLOOD TYPING SEROLOGIC ABO (04/07/18) BLOOD TYPING SEROLOGIC RH(D) (04/07/18) COMPATIBILITY TEST ANTIGLOB (04/07/18) COMPATIBILITY TEST INCUBATE (04/07/18) COMPATIBILITY TEST SPIN (04/07/18) COMPLETE CBC W/AUTO DIFF WBC (01/18/20) COMPREHEN METABOLIC PANEL (01/18/20) CT ABD & PELVIS W/O CONTRAST (04/07/18) CT LUMBAR SPINE W/O DYE (10/19/19) CULTURE AEROBIC IDENTIFY (04/10/19) ELECTROCARDIOGRAM TRACING (01/18/20) EMERGENCY DEPT VISIT (01/18/20) EMERGENCY DEPT VISIT (01/01/20) EMERGENCY DEPT VISIT (04/10/19) EMERGENCY DEPT VISIT (01/12/18) EMERGENCY DEPT VISIT (07/04/17) EMERGENCY DEPT VISIT (05/06/17) EVALUATION OF WHEEZING (11/19/17) EXTREMITY STUDY (01/18/20) EXTREMITY STUDY (04/07/18) GLUCOSE BLOOD TEST (04/10/19) HEMATOCRIT (04/07/18) HEMOGLOBIN (04/07/18) HYDRATE IV INFUSION ADD-ON (04/10/19) HYDRATION IV INFUSION INIT (04/10/19) INSERT TEMP BLADDER CATH (04/07/18) IRON BINDING TEST (04/07/18) METABOLIC PANEL TOTAL CA (04/10/19) MICROBE SUSCEPTIBLE JEFFREY (04/10/19) OCCULT BLD FECES 1-3 TESTS (04/07/18) OFFICE/OUTPATIENT VISIT EST (08/12/19) OT EVAL LOW COMPLEX 30 MIN (04/10/19) PROTHROMBIN TIME (01/18/20) PT EVAL LOW COMPLEX 20 MIN (04/10/19) PT EVAL MOD COMPLEX 30 MIN (04/07/18) PT EVALUATION (02/22/14) RBC ANTIBODY SCREEN (04/07/18) RBC SED RATE AUTOMATED (04/07/18) ROUTINE VENIPUNCTURE (01/18/20) THER/PROPH/DIAG INJ IV PUSH (01/18/20) THER/PROPH/DIAG INJ SC/IM (04/10/19) THER/PROPH/DIAG IV INF ADDON (10/19/18) THER/PROPH/DIAG IV INF INIT (10/19/18) THERAPEUTIC ACTIVITIES (04/10/19) THERAPEUTIC EXERCISES (04/10/19) THROMBOPLASTIN TIME PARTIAL (01/18/20) TX/PRO/DX INJ NEW DRUG ADDON (01/18/20) TX/PRO/DX INJ SAME DRUG LINE WALKER (01/18/20) TX/PROPH/DG ADDL SEQ IV INF (04/07/18) URINALYSIS AUTO W/SCOPE (01/18/20) URINE BACTERIA CULTURE (04/10/19) URINE CULTURE/COLONY COUNT (04/10/19) X-RAY EXAM ABDOMEN 1 VIEW (04/07/18) X-RAY EXAM CHEST 1 VIEW (01/18/20) X-RAY EXAM L-S SPINE 2/3 VWS (01/12/18) X-RAY EXAM OF FEMUR 2/> (01/18/20) X-RAY EXAM OF KNEE 3 (05/06/17) X-RAY EXAM OF PELVIS (01/18/20) X-RAY EXAM OF SHOULDER (01/01/20) X-RAY EXAM OF WRIST (05/06/17) X-RAY EXAM UNILAT RIBS/CHEST (05/06/17) (1) Chest wall contusion SNOMED Code(s): 21658752 Code(s): S20.219A - CONTUSION OF UNSPECIFIED FRONT WALL OF THORAX, INIT ENCNTR Current Visit: No Qualifiers: Encounter type: initial encounter Laterality: left Qualified Code(s): S20.212A - Contusion of left front wall of thorax, initial encounter (2) Fall SNOMED Code(s): 4075382, 125826622 Code(s): W19.XXXA - UNSPECIFIED FALL, INITIAL ENCOUNTER Current Visit: No Qualifiers: Encounter type: initial encounter Qualified Code(s): W19.XXXA - Unspecified fall, initial encounter Problem List Initiated/Reviewed/Updated: Yes Plan: CXR this am was stable. no evidence of a hemothorax or pneumothorax. The patient likely hit her right breast during her fall yesterday but due to the chest wall trauma on the left side being more significant she did not notice the pain on the right. Her chest x-ray showed no evidence of trauma to the right side of the chest.the patient is stable from a trauma standpoint. I would recommend [id number] pain medications and a lidocaine patch as needed for pain control. Follow up with PCP. Ok to discharge from a trauma standpoint. Call with any questions.
--- NOTE | 2020-03-31 12:53 | PCM.DCSUM1 ---
<Mele Abbott - Last Filed: 03/31/20 21:08> Discharge Summary - Hospital Course Free Text/Narrative:: 74 year old female with pmh of chronic afib, diastolic CHF with peripheral edema and lymphedema, gout, anemia, and osteoporosis presented to the ED with complaints of a fall. She reports she got up from bed early this morning to go to the bathroom. She was using her wheelchair as a walker to steady her gait to the bathroom. She reports she felt weak all over and then stated falling. He landed on her abdomen, unsure if she struck her head or not. She was wedged between her bed and wheel chair and noted to be having l sided anterior chest pain. She managed to sit up an call 911 to come help her. She denies chest pain or overt dizziness with the event. No shortness of breath or abdominal pain. No headache, sinus congestion, sore throat or neck pain. She denies fevers of chills. No urinary concerns at home no diarrhea or constipation. No black or bloody BMs. She reports she has been following with PCP lately for peripheral edema and OT as outpatient for lymphedema. She reports she can't stand SAMIR hose. Pain currently is 3/10, with movement it definitely increases. In the ED anemia noted at 8.9, baseline 9.5. INR 5.11. Na 140, K+4.1 Cr 1.2 BUN 12, CXR negative. Head CT negative, cervical spine negative, abdomen/pelvis CT negative. Chest CT revealed left lateral 8th rib fracture and thyroid nodule. She was given Morphine and lidocaine patch for pain. Dr Brothers consulted due to trauma alert being called. COVID negative Hospital course; admitted for concerns about fall, unwitnessed and not of unknown etiology and in a patient with supratherapeutic INR; warfarin was held; pain was controlled with morphine and PT OT evaluated patient. Except for supratherapeutic INR and positive UA; labs are otherwise reassuring. Patient was started on Levaquin initially but discharged on Ciprofloxacin for asymptomatic UTI. Advised to discontinue use of warfarin for next 2 days and restart on Friday and Friday and recheck INR on Friday. Patient requested discharge. Echocardiogram ordered and completed awaiting results. Incentive spirometry provided to patient advised to take deep breaths to avoid respiratory complications. Patient advised to discontinue tramadol use and was sent home for PRN oxycodone for pain control. Patient understood plan all questions answered. Patient discharged in stable condition - Discharge Data Discharge Date: 03/31/20 Discharge Disposition: Home, Self-Care 01 Condition: Stable - Referral to Home Health Primary Care Physician: Jen Penn DO - Patient Summary/Data Consults: Consultations 03/30/20 13:52 OT Evaluation and Treatment [CONS] Routine PT Evaluation and Treatment [CONS] Routine 03/30/20 15:29 Consult to Physician [CONS] Routine - Patient Instructions Diet: Heart Healthy Diet Driving: Do Not Drive Notify Provider of: Fever, Increased Pain, Nausea and/or Vomiting Other/Special Instructions: PLEASE HOLD OFF ON YOUR WARFARIN FOR TODAY AND TOMRROW; START AGAIN ON FRIDAY AND FRIDAY; RECHECK INR WITH YOUR OUTPATIENT PROVIDER - Discharge Plan *PRESCRIPTION DRUG MONITORING PROGRAM REVIEWED*: No *COPY OF PRESCRIPTION DRUG MONITORING REPORT IN PATIENT FERNANDEZ: No Prescriptions/Med Rec: Ciprofloxacin [Ciprofloxacin HCl] 250 mg PO BID 3 Days #6 tablet Hydrocodone/Acetaminophen [Hydrocodone-Acetamin 5-325 mg] 1 each PO TID PRN 3 Days #9 tablet PRN Reason: Pain Home Medications: Home Meds Bumetanide [Bumex] 2 mg PO TID 04/12/19 [History] Gabapentin [Neurontin] 300 mg PO TID 04/12/19 [History] Latanoprost/Pf [Latanoprost 0.005% Eye Drop] 7.5 ml OP DAILY 04/12/19 [History] Metoprolol Succinate 100 mg PO DAILY 04/12/19 [History] allopurinoL [Zyloprim] 150 mg PO DAILY 04/12/19 [History] Acetaminophen [Tylenol] 650 mg PO Q6H PRN tablet 04/16/19 [Rx] Warfarin Sodium [Coumadin] 6 mg PO ASDIRECTED 10/19/19 [History] Warfarin Sodium [Coumadin] 7 mg PO ASDIRECTED 10/19/19 [History] diphenhydrAMINE [Benadryl] 50 mg PO ASDIRECTED 10/19/19 [History] metOLazone [Metolazone] 2.5 mg PO ASDIRECTED 10/19/19 [History] rOPINIRole [Requip] 3 mg PO TID PRN 10/19/19 [History] Albuterol [Proair HFA] 2 puff INH ASDIRECTED PRN 01/18/20 [History] Cyclobenzaprine [Flexeril] 10 mg PO TID PRN 01/18/20 [History] Ferrous Sulfate [High Potency Iron] 65 mg PO DAILY 01/18/20 [History] Diclofenac Sodium [Diclo Gel] 1 applic TOP QID PRN 03/30/20 [History] Potassium Citrate [Potassium Citrate ER] 10 meq PO DAILY 03/30/20 [History] traMADol HCl [Tramadol HCl] 50 mg PO Q12HR PRN 03/30/20 [History] Acetaminophen [Tylenol] 650 mg PO Q4H PRN tablet 03/31/20 [Rx] Ciprofloxacin [Ciprofloxacin HCl] 250 mg PO BID 3 Days #6 tablet 03/31/20 [Rx] Hydrocodone/Acetaminophen [Hydrocodone-Acetamin 5-325 mg] 1 each PO TID PRN 3 Days #9 tablet 03/31/20 [Rx] Patient Handouts: Acetaminophen; Hydrocodone tablets or capsules, Nitrofurantoin tablets or capsules, Rib Fracture, [id number] Referrals: [facility] [Outside] Jen Penn DO [Primary Care Provider] - 04/07/20 10:00 am - Discharge Summary/Plan Comment DC Time >30 min.: No - Patient Data Vitals - Most Recent: Last Vital Signs Temp 99.1 F 03/31/20 09:00 Pulse 100 03/31/20 09:34 Resp 18 03/31/20 09:00 BP 111/61 03/31/20 09:34 Pulse Ox 96 03/31/20 09:00 Orthostatic Blood Pressure [ 117/87 Standing] Orthostatic Blood Pressure [ 130/59 Sitting] Orthostatic Blood Pressure [ 116/70 Supine] Weight - Most Recent: 126.552 kg I&O - Last 24 hours: Intake & Output 03/30/20 03/31/20 03/31/20 22:59 06:59 14:59 Intake Total 350 Output Total 2875 Balance -9055 Lab Results - Last 24 hrs: Laboratory Results - last 24 hr 03/30/20 03/30/20 03/31/20 Range/Units 12:18 19:25 06:36 WBC 5.75 (4.0-11.0) K/uL RBC 3.35 L (4.30-5.90) M/uL Hgb 8.9 L (12.0-16.0) g/dL Hct 29.3 L (36.0-46.0) % MCV 87.5 (80.0-98.0) fL MCH 26.6 L (27.0-32.0) pg MCHC 30.4 L (31.0-37.0) g/dL RDW Std Deviation 53.4 (28.0-62.0) fl RDW Coeff of Radha 17 H (11.0-15.0) % Plt Count 254 (150-400) K/uL MPV 9.70 (7.40-12.00) fL Neut % (Auto) 64.5 (48.0-80.0) % Lymph % (Auto) 24.0 (16.0-40.0) % Clay % (Auto) 8.7 (0.0-15.0) % Eos % (Auto) 2.6 (0.0-7.0) % Baso % (Auto) 0.2 (0.0-1.5) % Neut # (Auto) 3.7 (1.4-5.7) K/uL Lymph # (Auto) 1.4 (0.6-2.4) K/uL Clay # (Auto) 0.5 (0.0-0.8) K/uL Eos # (Auto) 0.2 (0.0-0.7) K/uL Baso # (Auto) 0.0 (0.0-0.1) K/uL Nucleated RBC % 0.0 /100WBC Nucleated RBCs # 0 K/uL INR Sodium (136-145) mmol/L Potassium (3.5-5.1) mmol/L Chloride (98-107) mmol/L Carbon Dioxide (21.0-32.0) mmol/L BUN (7.0-18.0) mg/dL Creatinine (0.6-1.0) mg/dL Est Cr Clr Drug Dosing mL/min Estimated GFR (MDRD) ml/min Glucose (74-106) mg/dL Calcium (8.5-10.1) mg/dL Urine Color YELLOW Urine Appearance CLEAR Urine pH 6.0 (5.0-8.0) Ur Specific [place] 1.010 (1.001-1.035) Urine Protein NEGATIVE (NEGATIVE) mg/dL Urine Glucose (UA) NEGATIVE (NEGATIVE) mg/dL Urine Ketones NEGATIVE (NEGATIVE) mg/dL Urine Occult Blood NEGATIVE (NEGATIVE) Urine Nitrite POSITIVE H (NEGATIVE) Urine Bilirubin NEGATIVE (NEGATIVE) Urine Urobilinogen 0.2 (<2.0) EU/dL Ur Leukocyte Esterase NEGATIVE (NEGATIVE) Urine RBC 0-1 (0-2/HPF) Urine WBC 0-1 (0-5/HPF) Ur Epithelial Cells RARE (NONE-FEW) Urine Bacteria 3+ H (NEGATIVE) SARS Virus RNA (PCR) NEGATIVE (NEGATIVE) 03/31/20 03/31/20 Range/Units 06:36 06:36 WBC (4.0-11.0) K/uL RBC (4.30-5.90) M/uL Hgb (12.0-16.0) g/dL Hct (36.0-46.0) % MCV (80.0-98.0) fL MCH (27.0-32.0) pg MCHC (31.0-37.0) g/dL RDW Std Deviation (28.0-62.0) fl RDW Coeff of Radha (11.0-15.0) % Plt Count (150-400) K/uL MPV (7.40-12.00) fL Neut % (Auto) (48.0-80.0) % Lymph % (Auto) (16.0-40.0) % Clay % (Auto) (0.0-15.0) % Eos % (Auto) (0.0-7.0) % Baso % (Auto) (0.0-1.5) % Neut # (Auto) (1.4-5.7) K/uL Lymph # (Auto) (0.6-2.4) K/uL Clay # (Auto) (0.0-0.8) K/uL Eos # (Auto) (0.0-0.7) K/uL Baso # (Auto) (0.0-0.1) K/uL Nucleated RBC % /100WBC Nucleated RBCs # K/uL INR 4.90 Sodium 141 (136-145) mmol/L Potassium 3.8 (3.5-5.1) mmol/L Chloride 103 (98-107) mmol/L Carbon Dioxide 27.2 (21.0-32.0) mmol/L BUN 11 (7.0-18.0) mg/dL Creatinine 1.3 H (0.6-1.0) mg/dL Est Cr Clr Drug Dosing 39.46 mL/min Estimated GFR (MDRD) 40.3 ml/min Glucose 105 (74-106) mg/dL Calcium 9.0 (8.5-10.1) mg/dL Urine Color Urine Appearance Urine pH (5.0-8.0) Ur Specific [place] (1.001-1.035) Urine Protein (NEGATIVE) mg/dL Urine Glucose (UA) (NEGATIVE) mg/dL Urine Ketones (NEGATIVE) mg/dL Urine Occult Blood (NEGATIVE) Urine Nitrite (NEGATIVE) Urine Bilirubin (NEGATIVE) Urine Urobilinogen (<2.0) EU/dL Ur Leukocyte Esterase (NEGATIVE) Urine RBC (0-2/HPF) Urine WBC (0-5/HPF) Ur Epithelial Cells (NONE-FEW) Urine Bacteria (NEGATIVE) SARS Virus RNA (PCR) (NEGATIVE) Med Orders - Current: Current Medications Acetaminophen (Tylenol) 650 mg PO Q4H PRN PRN Reason: Pain (Mild 1-3)/fever Albuterol (Ventolin Hfa) 2 gm INH ASDIRECTED PRN PRN Reason: Shortness of Breath Allopurinol (Zyloprim) 150 mg PO DAILY [facility] Last Admin: 03/31/20 09:33 Dose: 150 mg Documented by: Bumetanide (Bumex) 2 mg PO TID [facility] Last Admin: 03/31/20 06:44 Dose: 2 mg Documented by: Cyclobenzaprine HCl (Flexeril) 10 mg PO TID PRN PRN Reason: Spasms Docusate Sodium (Colace) 100 mg PO BID [facility] Last Admin: 03/31/20 09:33 Dose: Not Given Documented by: Gabapentin (Neurontin) 300 mg PO TID [facility] Last Admin: 03/31/20 06:44 Dose: 300 mg Documented by: Levofloxacin/Dextrose 750 mg/ (Premix) 150 mls @ 100 mls/hr IV Q48H [facility] Last Admin: 03/30/20 20:54 Dose: 100 mls/hr Documented by: Metoprolol Succinate (Toprol Xl) 100 mg PO DAILY [facility] Last Admin: 03/31/20 09:34 Dose: 100 mg Documented by: Morphine Sulfate (Morphine) 2 mg IVPUSH Q3H PRN PRN Reason: Pain Non-Formulary Medication (Latanoprost/Pf [Latanoprost 0.005% Eye Drop]) 7.5 ml OP DAILY [facility] Ondansetron HCl (Zofran) 4 mg IVPUSH Q4H PRN PRN Reason: Nausea Diclofenac Sodium [ (Diclo Gel] 1 Applic) 1 each TOP QID PRN PRN Reason: Pain Ferrous Sulfate 65mg 1 each PO DAILY [facility] Potassium Chloride (Klor-Con 10) 10 meq PO DAILY [facility] Last Admin: 03/31/20 09:32 Dose: 10 meq Documented by: Ropinirole HCl (Requip) 3 mg PO TID PRN PRN Reason: restless leg Last Admin: 03/30/20 21:05 Dose: 3 mg Documented by: Sodium Chloride (Saline Flush) 2.5 ml FLUSH ASDIRECTED PRN PRN Reason: Keep Vein Open Tramadol HCl (Ultram) 50 mg PO Q4H PRN PRN Reason: Pain Last Admin: 03/31/20 09:46 Dose: 50 mg Documented by: Discontinued Medications Acetaminophen (Tylenol Extra Strength) 1,000 mg PO ONETIME ONE Stop: 03/30/20 11:52 Last Admin: 03/30/20 12:19 Dose: 1,000 mg Documented by: Docusate Sodium (Colace) 100 mg PO BID PRN PRN Reason: Constipation Ferrous Sulfate (Ferrous Sulfate) 65 mg PO DAILY [facility] Lidocaine (Lidoderm 5%) 700 mg TOP ONETIME ONE Stop: 03/30/20 11:52 Last Admin: 03/30/20 12:21 Dose: 700 mg Documented by: Morphine Sulfate (Morphine) 2 mg IVPUSH ONETIME ONE Stop: 03/30/20 10:18 Last Admin: 03/30/20 10:22 Dose: 2 mg Documented by: Sodium Chloride (Saline Flush) 10 ml FLUSH ASDIRECTED PRN PRN Reason: Keep Vein Open Last Admin: 03/30/20 10:21 Dose: 10 ml Documented by: Sodium Chloride (Saline Flush) 2.5 ml FLUSH ASDIRECTED PRN PRN Reason: Keep Vein Open Last Admin: 03/30/20 10:22 Dose: 2.5 ml Documented by: <Katie Hedrick - Last Filed: 04/03/20 11:33> Discharge Summary - Hospital Course Free Text/Narrative:: I have seen and evaluated the patient and agree with the residents note unless specified in my note - Referral to Home Health Primary Care Physician: Jen Penn DO - Patient Summary/Data Consults: Consultations 03/30/20 13:52 OT Evaluation and Treatment [CONS] Routine PT Evaluation and Treatment [CONS] Routine 03/30/20 15:29 Consult to Physician [CONS] Routine - Patient Data Vitals - Most Recent: Last Vital Signs Temp 37.3 C 03/31/20 09:00 Pulse 100 03/31/20 09:34 Resp 18 03/31/20 09:00 BP 111/61 03/31/20 09:34 Pulse Ox 96 03/31/20 09:00 Orthostatic Blood Pressure [ 117/87 Standing] Orthostatic Blood Pressure [ 130/59 Sitting] Orthostatic Blood Pressure [ 116/70 Supine] Med Orders - Current: Current Medications Discontinued Medications Acetaminophen (Tylenol Extra Strength) 1,000 mg PO ONETIME ONE Stop: 03/30/20 11:52 Last Admin: 03/30/20 12:19 Dose: 1,000 mg Documented by: Acetaminophen (Tylenol) 650 mg PO Q4H PRN PRN Reason: Pain (Mild 1-3)/fever Albuterol (Ventolin Hfa) 2 gm INH ASDIRECTED PRN PRN Reason: Shortness of Breath Allopurinol (Zyloprim) 150 mg PO DAILY [facility] Last Admin: 03/31/20 09:33 Dose: 150 mg Documented by: Bumetanide (Bumex) 2 mg PO TID [facility] Last Admin: 03/31/20 14:09 Dose: Not Given Documented by: Cyclobenzaprine HCl (Flexeril) 10 mg PO TID PRN PRN Reason: Spasms Docusate Sodium (Colace) 100 mg PO BID PRN PRN Reason: Constipation Docusate Sodium (Colace) 100 mg PO BID [facility] Last Admin: 03/31/20 09:33 Dose: Not Given Documented by: Ferrous Sulfate (Ferrous Sulfate) 65 mg PO DAILY [facility] Gabapentin (Neurontin) 300 mg PO TID [facility] Last Admin: 03/31/20 14:08 Dose: 300 mg Documented by: Levofloxacin/Dextrose 750 mg/ (Premix) 150 mls @ 100 mls/hr IV Q48H [facility] Last Admin: 03/30/20 20:54 Dose: 100 mls/hr Documented by: Lidocaine (Lidoderm 5%) 700 mg TOP ONETIME ONE Stop: 03/30/20 11:52 Last Admin: 03/30/20 12:21 Dose: 700 mg Documented by: Metoprolol Succinate (Toprol Xl) 100 mg PO DAILY [facility] Last Admin: 03/31/20 09:34 Dose: 100 mg Documented by: Morphine Sulfate (Morphine) 2 mg IVPUSH ONETIME ONE Stop: 03/30/20 10:18 Last Admin: 03/30/20 10:22 Dose: 2 mg Documented by: Morphine Sulfate (Morphine) 2 mg IVPUSH Q3H PRN PRN Reason: Pain Non-Formulary Medication (Latanoprost/Pf [Latanoprost 0.005% Eye Drop]) 7.5 ml OP DAILY [facility] Ondansetron HCl (Zofran) 4 mg IVPUSH Q4H PRN PRN Reason: Nausea Diclofenac Sodium [ (Diclo Gel] 1 Applic) 1 each TOP QID PRN PRN Reason: Pain Ferrous Sulfate 65mg 1 each PO DAILY [facility] Potassium Chloride (Klor-Con 10) 10 meq PO DAILY [facility] Last Admin: 03/31/20 09:32 Dose: 10 meq Documented by: Ropinirole HCl (Requip) 3 mg PO TID PRN PRN Reason: restless leg Last Admin: 03/30/20 21:05 Dose: 3 mg Documented by: Sodium Chloride (Saline Flush) 10 ml FLUSH ASDIRECTED PRN PRN Reason: Keep Vein Open Last Admin: 03/30/20 10:21 Dose: 10 ml Documented by: Sodium Chloride (Saline Flush) 2.5 ml FLUSH ASDIRECTED PRN PRN Reason: Keep Vein Open Last Admin: 03/30/20 10:22 Dose: 2.5 ml Documented by: Sodium Chloride (Saline Flush) 2.5 ml FLUSH ASDIRECTED PRN PRN Reason: Keep Vein Open Tramadol HCl (Ultram) 50 mg PO Q4H PRN PRN Reason: Pain Last Admin: 03/31/20 09:46 Dose: 50 mg Documented by:
== END 2020-03-31 14:30 | disposition home or self-care (01) ==
LOC: MW.ED 10:05 → MW.MS 12:32
PROVIDERS: ADMIT Internal Medicine; ATTEND Internal Medicine
DX: S22.32XA Fracture of one rib, left side, initial encounter for closed fracture (principal); E04.1 Nontoxic single thyroid nodule; R79.1 Abnormal coagulation profile; E66.9 Obesity, unspecified; I48.20 Chronic atrial fibrillation, unspecified; I50.30 Unspecified diastolic (congestive) heart failure; D64.9 Anemia, unspecified; M81.0 Age-related osteoporosis without current pathological fracture; Z20.828 Contact with and (suspected) exposure to other viral communicable diseases; Z88.0 Allergy status to penicillin; Z88.1 Allergy status to other antibiotic agents; Z88.7 Allergy status to serum and vaccine; Z88.8 Allergy status to other drugs, medicaments and biological substances; Z79.01 Long term (current) use of anticoagulants; Z79.899 Other long term (current) drug therapy; V00.811A Fall from moving wheelchair (powered), initial encounter; Y92.009 Unspecified place in unspecified non-institutional (private) residence as the place of occurrence of the external cause; Z68.41 Body mass index [BMI] 40.0-44.9, adult
CPT/HCPCS: 36415; 70450; 71045; 71260; 72125; 74177; 80048; 81001; 82550; 85025; 85610; 87086; 87088; 87186; 93306; 96374; 97161; 97168; 99285; A9270; J1956; J2270; U0002

== ENCOUNTER 2020-04-12 23:16 | Observation (INO) | payer MEDICARE, BC ==
--- NOTE | 2020-04-12 23:30 | EDM.PDOC ---
ED HPI GENERAL MEDICAL PROBLEM - General Chief Complaint: Lower Extremity Injury/Pain Stated Complaint: WEAKNESS Time Seen by Provider: 04/12/20 23:30 Source of Information: Reports: Patient, EMS History Limitations: Reports: No Limitations - History of Present Illness INITIAL COMMENTS - FREE TEXT/NARRATIVE: 74F PMHx Afib on warfarin,lumbar back pain, DJD, CHF on lasix, chronic lymphedema, wheelchair bound at baseline, frequent falls presents for falls, generalized weakness, inability to walk. Patient lives alone at home. Typically gets around mostly in wheelchair but does get up to use bathroom, transfer, etc. Lately has been very weak and unable to get up. Fell on 03/30 and was here diagnosed with rib fracture. Has had a few falls out of wheelchair since then with latest fall this morning. She called for lift assist. This evening she feels that she's unable to get up on her own or care for herself. left leg Pain Score (Numeric/FACES): 5 - Related Data Allergies Allergy/AdvReac Type Severity Reaction Status Date / Time amoxicillin Allergy Rash Verified 04/12/20 23:25 cephalexin monohydrate Allergy Rash Verified 04/13/20 02:29 [From Keflex] Penicillins Allergy Rash Verified 04/12/20 23:25 rofecoxib [From Vioxx] Allergy Rash Verified 04/12/20 23:25 tetanus toxoid, adsorbed Allergy Rash Verified 04/12/20 23:25 valacyclovir HCl Allergy Rash Verified 04/12/20 23:25 [From Valtrex] wool Allergy Rash Verified 04/12/20 23:25 ferlacit Allergy Severe Hypotension Uncoded 04/12/20 23:25 Avalox Allergy Rash Uncoded 04/12/20 23:25 Bextra Allergy Rash Uncoded 04/12/20 23:25 celebrex Allergy Rash Uncoded 04/12/20 23:25 macrobid Allergy Rash Uncoded 04/12/20 23:25 plastic tape Allergy Rash Uncoded 04/12/20 23:25 Zofran Allergy Rash Uncoded 04/12/20 23:25 Home Meds: Home Meds Bumetanide [Bumex] 2 mg PO TID 04/12/19 [History] Gabapentin [Neurontin] 300 mg PO TID 04/12/19 [History] Latanoprost/Pf [Latanoprost 0.005% Eye Drop] 7.5 ml OP DAILY 04/12/19 [History] Metoprolol Succinate 100 mg PO DAILY 04/12/19 [History] allopurinoL [Zyloprim] 150 mg PO DAILY 04/12/19 [History] Acetaminophen [Tylenol] 650 mg PO Q6H PRN tablet 04/16/19 [Rx] Warfarin Sodium [Coumadin] 6 mg PO ASDIRECTED 10/19/19 [History] Warfarin Sodium [Coumadin] 7 mg PO ASDIRECTED 10/19/19 [History] diphenhydrAMINE [Benadryl] 50 mg PO ASDIRECTED 10/19/19 [History] metOLazone [Metolazone] 2.5 mg PO ASDIRECTED 10/19/19 [History] rOPINIRole [Requip] 3 mg PO TID PRN 10/19/19 [History] Albuterol [Proair HFA] 2 puff INH ASDIRECTED PRN 01/18/20 [History] Cyclobenzaprine [Flexeril] 10 mg PO TID PRN 01/18/20 [History] Ferrous Sulfate [High Potency Iron] 65 mg PO DAILY 01/18/20 [History] Diclofenac Sodium [Diclo Gel] 1 applic TOP QID PRN 03/30/20 [History] Potassium Citrate [Potassium Citrate ER] 10 meq PO DAILY 03/30/20 [History] traMADol HCl [Tramadol HCl] 50 mg PO Q12HR PRN 03/30/20 [History] Acetaminophen [Tylenol] 650 mg PO Q4H PRN tablet 03/31/20 [Rx] Hydrocodone/Acetaminophen [Hydrocodone-Acetamin 5-325 mg] 1 each PO TID PRN 3 D ays #9 tablet 03/31/20 [Rx] Past Medical History HEENT History: Reports: Cataract, Impaired Vision 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 Cardiovascular History: Reports: Afib, Angina, Heart Failure Respiratory History: Reports: Bronchitis, Recurrent, SOB Genitourinary History: Reports: Pyelonephritis, Urinary Incontinence [employer] History: Reports: Musculoskeletal History: Reports: Fibromyalgia, Osteoarthritis, Osteoporosis, Other (See Below) Other Musculoskeletal History: MS more than 50 years Neurological History: Reports: MS Psychiatric History: Reports: None Endocrine/Metabolic History: Reports: Obesity/BMI 30+ Hematologic History: Reports: Anemia Immunologic History: Reports: None Oncologic (Cancer) History: Reports: Malignant Melanoma Dermatologic History: Reports: Other (See Below) Other Dermatologic History: melanoma to top of head - Infectious Disease History Infectious Disease History: Reports: Chicken Pox, Measles, Mumps - Past Surgical History HEENT Surgical History: Reports: Cataract Surgery, Tonsillectomy Cardiovascular Surgical History: Reports: Other (See Below) Other Cardiovascular Surgeries/Procedures: angiogram without stents Respiratory Surgical History: Reports: Other (See Below) Other Respiratory Surgeries/Procedures: bronchoscopy February 2019 GI Surgical History: Reports: Appendectomy, Cholecystectomy, Colonoscopy, Other (See Below) Other GI Surgeries/Procedures: gastric bypass surgery Female Surgical History: Reports: Hysterectomy, Other (See Below) Other Female Surgeries/Procedures: bladder suspension Neurological Surgical History: Reports: None Musculoskeletal Surgical History: Reports: Knee Replacement, Shoulder Replacement, Other (See Below) Other Musculoskeletal Surgeries/Procedures:: left femur surgery Dermatological Surgical History: Reports: None Social & Family History - Family History Family Medical History: Noncontributory - Tobacco Use Smoking Status *Q: Never Smoker - Caffeine Use Caffeine Use: Reports: Tea - Recreational Drug Use Recreational Drug Use: No Review of Systems - Review of Systems Review Of Systems: Comprehensive ROS is negative, except as noted in HPI. ED EXAM, GENERAL - Physical Exam Exam: See Below Exam Limited By: No Limitations General Appearance: Alert, WD/WN, No Apparent Distress Eye Exam: Bilateral Eye: EOMI, PERRL Ears: Normal External Exam Nose: Normal Inspection Throat/Mouth: Normal Inspection, Normal Voice, No Airway Compromise Head: Atraumatic, Normocephalic Neck: Normal Inspection, Non-Tender, Full Range of Motion. No: Tender Lateral, Tender Midline Respiratory/Chest: No Respiratory Distress, Lungs Clear, Normal Breath Sounds, No Accessory Muscle Use, Chest Non-Tender Cardiovascular: Normal Peripheral Pulses, Other (significant b/l pitting edema of LE) GI/Abdominal: Soft, Non-Tender Extremities: Normal Inspection, Non-Tender Neurological: Alert Psychiatric: Normal Affect, Normal Mood Skin Exam: Warm, Dry, Intact Course - Vital Signs Last Recorded V/S: Last Vital Signs Temp 98.2 F 04/12/20 23:21 Pulse 108 H 04/12/20 23:21 Resp 20 04/12/20 23:21 BP 113/67 04/12/20 23:21 Pulse Ox 98 04/12/20 23:21 - Orders/Labs/Meds Orders: Active Orders 24 hr Category Date Time Status Cardiac Monitoring [RC] . DIRECTED Care 04/12/20 23:31 Active EKG Documentation Completion [RC] STAT Care 04/12/20 23:31 Active Pulse Oximetry [RC] ASDIRECTED Care 04/12/20 23:31 Active Urinary Catheter Assessment [RC] ASDIRECTED Care 04/12/20 23:33 Active Urinary Catheter Insertion [Insert Urinary Catheter] [ Care 04/12/20 23:45 Ordered OM.PC] Q24H CORONAVIRUS COVID-19 PCR PHL Stat Lab 04/13/20 00:13 Received Sodium Chloride 0.9% [Saline Flush] Med 04/12/20 23:31 Active 10 ml FLUSH ASDIRECTED PRN Sodium Chloride 0.9% [Saline Flush] Med 04/12/20 23:31 Active 2.5 ml FLUSH ASDIRECTED PRN Saline Lock Insert [OM.PC] Stat Oth 04/12/20 23:31 Ordered Medication Orders Sodium Chloride (Saline Flush) 10 ml FLUSH ASDIRECTED PRN PRN Reason: Keep Vein Open Sodium Chloride (Saline Flush) 2.5 ml FLUSH ASDIRECTED PRN PRN Reason: Keep Vein Open Labs: Laboratory Tests 04/12/20 04/12/20 04/12/20 Range/Units 23:40 23:40 23:40 WBC 10.35 (4.0-11.0) K/uL RBC 3.69 L (4.30-5.90) M/uL Hgb 9.9 L (12.0-16.0) g/dL Hct 31.8 L (36.0-46.0) % MCV 86.2 (80.0-98.0) fL MCH 26.8 L (27.0-32.0) pg MCHC 31.1 (31.0-37.0) g/dL RDW Std Deviation 51.0 (28.0-62.0) fl RDW Coeff of Radha 16 H (11.0-15.0) % Plt Count 265 (150-400) K/uL MPV 10.00 (7.40-12.00) fL Neut % (Auto) 80.7 H (48.0-80.0) % Lymph % (Auto) 11.4 L (16.0-40.0) % [place] % (Auto) 7.1 (0.0-15.0) % Eos % (Auto) 0.6 (0.0-7.0) % Baso % (Auto) 0.2 (0.0-1.5) % Neut # (Auto) 8.4 H (1.4-5.7) K/uL Lymph # (Auto) 1.2 (0.6-2.4) K/uL [place] # (Auto) 0.7 (0.0-0.8) K/uL Eos # (Auto) 0.1 (0.0-0.7) K/uL Baso # (Auto) 0.0 (0.0-0.1) K/uL Nucleated RBC % 0.0 /100WBC Nucleated RBCs # 0 K/uL INR 2.70 APTT 35.4 H (18.6-31.3) SEC Lactate 1.4 (0.20-2.00) mmol/L Sodium (136-145) mmol/L Potassium (3.5-5.1) mmol/L Chloride (98-107) mmol/L Carbon Dioxide (21.0-32.0) mmol/L BUN (7.0-18.0) mg/dL Creatinine (0.6-1.0) mg/dL Est Cr Clr Drug Dosing mL/min Estimated GFR (MDRD) ml/min Glucose (74-106) mg/dL Calcium (8.5-10.1) mg/dL Magnesium (1.8-2.4) mg/dL Total Bilirubin (0.2-1.0) mg/dL AST (15-37) IU/L ALT (14-63) IU/L Alkaline Phosphatase (46-116) U/L Troponin I (0.000-0.056) ng/mL B-Natriuretic Peptide (<100) PG/ML Total Protein (6.4-8.2) g/dL Albumin (3.4-5.0) g/dL Globulin (2.6-4.0) g/dL Albumin/Globulin Ratio (0.9-1.6) Urine Color Urine Appearance Urine pH (5.0-8.0) Ur Specific [place] (1.001-1.035) Urine Protein (NEGATIVE) mg/dL Urine Glucose (UA) (NEGATIVE) mg/dL Urine Ketones (NEGATIVE) mg/dL Urine Occult Blood (NEGATIVE) Urine Nitrite (NEGATIVE) Urine Bilirubin (NEGATIVE) Urine Urobilinogen (<2.0) EU/dL Ur Leukocyte Esterase (NEGATIVE) Urine RBC (0-2/HPF) Urine WBC (0-5/HPF) Ur Epithelial Cells (NONE-FEW) Urine Bacteria (NEGATIVE) Urine Mucus (NONE-MOD) SARS CoV-2 RNA Rapid AGUILA (NEGATIVE) 04/12/20 04/12/20 04/13/20 Range/Units 23:40 23:40 00:00 WBC (4.0-11.0) K/uL RBC (4.30-5.90) M/uL Hgb (12.0-16.0) g/dL Hct (36.0-46.0) % MCV (80.0-98.0) fL MCH (27.0-32.0) pg MCHC (31.0-37.0) g/dL RDW Std Deviation (28.0-62.0) fl RDW Coeff of Radha (11.0-15.0) % Plt Count (150-400) K/uL MPV (7.40-12.00) fL Neut % (Auto) (48.0-80.0) % Lymph % (Auto) (16.0-40.0) % [place] % (Auto) (0.0-15.0) % Eos % (Auto) (0.0-7.0) % Baso % (Auto) (0.0-1.5) % Neut # (Auto) (1.4-5.7) K/uL Lymph # (Auto) (0.6-2.4) K/uL [place] # (Auto) (0.0-0.8) K/uL Eos # (Auto) (0.0-0.7) K/uL Baso # (Auto) (0.0-0.1) K/uL Nucleated RBC % /100WBC Nucleated RBCs # K/uL INR APTT (18.6-31.3) SEC Lactate (0.20-2.00) mmol/L Sodium 140 (136-145) mmol/L Potassium 4.0 (3.5-5.1) mmol/L Chloride 103 (98-107) mmol/L Carbon Dioxide 22.6 (21.0-32.0) mmol/L BUN 21 H (7.0-18.0) mg/dL Creatinine 1.3 H (0.6-1.0) mg/dL Est Cr Clr Drug Dosing 40.88 mL/min Estimated GFR (MDRD) 40.3 ml/min Glucose 120 H (74-106) mg/dL Calcium 8.8 (8.5-10.1) mg/dL Magnesium 2.0 (1.8-2.4) mg/dL Total Bilirubin 0.9 (0.2-1.0) mg/dL AST 64 H (15-37) IU/L ALT 33 (14-63) IU/L Alkaline Phosphatase 139 H (46-116) U/L Troponin I < 0.050 (0.000-0.056) ng/mL B-Natriuretic Peptide 186 H (<100) PG/ML Total Protein 7.4 (6.4-8.2) g/dL Albumin 3.4 (3.4-5.0) g/dL Globulin 4.0 (2.6-4.0) g/dL Albumin/Globulin Ratio 0.9 (0.9-1.6) Urine Color YELLOW Urine Appearance SLT CLOUDY Urine pH 5.5 (5.0-8.0) Ur Specific [place] 1.020 (1.001-1.035) Urine Protein NEGATIVE (NEGATIVE) mg/dL Urine Glucose (UA) NEGATIVE (NEGATIVE) mg/dL Urine Ketones TRACE H (NEGATIVE) mg/dL Urine Occult Blood TRACE-INTACT H (NEGATIVE) Urine Nitrite POSITIVE H (NEGATIVE) Urine Bilirubin NEGATIVE (NEGATIVE) Urine Urobilinogen 0.2 (<2.0) EU/dL Ur Leukocyte Esterase NEGATIVE (NEGATIVE) Urine RBC 0-2 (0-2/HPF) Urine WBC 0-2 (0-5/HPF) Ur Epithelial Cells FEW (NONE-FEW) Urine Bacteria 3+ H (NEGATIVE) Urine Mucus LIGHT (NONE-MOD) SARS CoV-2 RNA Rapid AGUILA (NEGATIVE) 04/13/20 Range/Units 00:05 WBC (4.0-11.0) K/uL RBC (4.30-5.90) M/uL Hgb (12.0-16.0) g/dL Hct (36.0-46.0) % MCV (80.0-98.0) fL MCH (27.0-32.0) pg MCHC (31.0-37.0) g/dL RDW Std Deviation (28.0-62.0) fl RDW Coeff of Radha (11.0-15.0) % Plt Count (150-400) K/uL MPV (7.40-12.00) fL Neut % (Auto) (48.0-80.0) % Lymph % (Auto) (16.0-40.0) % [place] % (Auto) (0.0-15.0) % Eos % (Auto) (0.0-7.0) % Baso % (Auto) (0.0-1.5) % Neut # (Auto) (1.4-5.7) K/uL Lymph # (Auto) (0.6-2.4) K/uL [place] # (Auto) (0.0-0.8) K/uL Eos # (Auto) (0.0-0.7) K/uL Baso # (Auto) (0.0-0.1) K/uL Nucleated RBC % /100WBC Nucleated RBCs # K/uL INR APTT (18.6-31.3) SEC Lactate (0.20-2.00) mmol/L Sodium (136-145) mmol/L Potassium (3.5-5.1) mmol/L Chloride (98-107) mmol/L Carbon Dioxide (21.0-32.0) mmol/L BUN (7.0-18.0) mg/dL Creatinine (0.6-1.0) mg/dL Est Cr Clr Drug Dosing mL/min Estimated GFR (MDRD) ml/min Glucose (74-106) mg/dL Calcium (8.5-10.1) mg/dL Magnesium (1.8-2.4) mg/dL Total Bilirubin (0.2-1.0) mg/dL AST (15-37) IU/L ALT (14-63) IU/L Alkaline Phosphatase (46-116) U/L Troponin I (0.000-0.056) ng/mL B-Natriuretic Peptide (<100) PG/ML Total Protein (6.4-8.2) g/dL Albumin (3.4-5.0) g/dL Globulin (2.6-4.0) g/dL Albumin/Globulin Ratio (0.9-1.6) Urine Color Urine Appearance Urine pH (5.0-8.0) Ur Specific [place] (1.001-1.035) Urine Protein (NEGATIVE) mg/dL Urine Glucose (UA) (NEGATIVE) mg/dL Urine Ketones (NEGATIVE) mg/dL Urine Occult Blood (NEGATIVE) Urine Nitrite (NEGATIVE) Urine Bilirubin (NEGATIVE) Urine Urobilinogen (<2.0) EU/dL Ur Leukocyte Esterase (NEGATIVE) Urine RBC (0-2/HPF) Urine WBC (0-5/HPF) Ur Epithelial Cells (NONE-FEW) Urine Bacteria (NEGATIVE) Urine Mucus (NONE-MOD) SARS CoV-2 RNA Rapid AGUILA NEGATIVE (NEGATIVE) Meds: Medications Generic Name Dose Route Start Last Admin Trade Name Marlon PRN Reason Stop Dose Admin Sodium Chloride 10 ml 04/12/20 23:31 Saline Flush FLUSH ASDIRECTED PRN Keep Vein Open Sodium Chloride 2.5 ml 04/12/20 23:31 Saline Flush FLUSH ASDIRECTED PRN Keep Vein Open Discontinued Medications Generic Name Dose Route Start Last Admin Trade Name Marlon PRN Reason Stop Dose Admin Sodium Chloride 500 mls @ 999 mls/hr 04/12/20 23:47 04/13/20 00:19 Normal Saline IV 04/13/20 00:17 999 mls/hr .BOLUS ONE Administration Ceftriaxone Sodium 1 gm/ 50 mls @ 200 mls/hr 04/13/20 00:34 04/13/20 01:07 Sodium Chloride IV 04/13/20 00:48 Not Given ONETIME ONE Ceftriaxone Sodium/Dextrose Confirm 04/13/20 00:52 04/13/20 01:07 Rocephin In Dextrose,Iso-Osm 1 Gm/50 Ml Administered 04/13/20 00:53 Not Given Dose 50 mls @ as directed .ROUTE .STK-MED ONE Ceftriaxone Sodium/Dextrose 1 50 mls @ 100 mls/hr 04/13/20 01:29 04/13/20 01:00 gm/ Premix IV 04/13/20 01:58 100 mls/hr ONETIME ONE Administration - Re-Assessments/Exams Free Text/Narrative Re-Assessment/Exam: 04/12/20 23:47 Will get extensive labs/imaging. Anticipate admit 04/13/20 02:46 Imaging unremarkable; will admit patient for further workup/management of UTI/frequent falls. 04/13/20 02:56 Dr. Hedrick agrees to accept patient for observation admission Departure - Departure Time of Disposition: 02:56 Disposition: Admitted As Inpatient 68 Condition: Good Clinical Impression: UTI (urinary tract infection) Qualifiers: Urinary tract infection type: acute cystitis Hematuria presence: without hematuria Qualified Code(s): N30.00 - Acute cystitis without hematuria - Discharge Information Referrals: Jen Penn DO [Primary Care Provider] - Forms: ED Department Discharge Sepsis Event Note (ED) - Evaluation Sepsis Screening Result: No Definite Risk - Focused Exam Vital Signs: Vital Signs Temp Pulse Resp BP Pulse Ox 04/12/20 23:21 98.2 F 108 H 20 113/67 98 - My Orders Last 24 Hours: My Active Orders 04/12/20 23:31 Cardiac Monitoring [RC] . DIRECTED EKG Documentation Completion [RC] STAT Pulse Oximetry [RC] ASDIRECTED Sodium Chloride 0.9% [Saline Flush] 10 ml FLUSH ASDIRECTED PRN Sodium Chloride 0.9% [Saline Flush] 2.5 ml FLUSH ASDIRECTED PRN Saline Lock Insert [OM.PC] Stat 04/12/20 23:33 Urinary Catheter Assessment [RC] ASDIRECTED 04/12/20 23:45 Urinary Catheter Insertion [Insert Urinary Catheter] [OM.PC] Q24H 04/13/20 00:13 CORONAVIRUS COVID-19 PCR PHL Stat - Assessment/Plan Last 24 Hours: My Active Orders 04/12/20 23:31 Cardiac Monitoring [RC] . DIRECTED EKG Documentation Completion [RC] STAT Pulse Oximetry [RC] ASDIRECTED Sodium Chloride 0.9% [Saline Flush] 10 ml FLUSH ASDIRECTED PRN Sodium Chloride 0.9% [Saline Flush] 2.5 ml FLUSH ASDIRECTED PRN Saline Lock Insert [OM.PC] Stat 04/12/20 23:33 Urinary Catheter Assessment [RC] ASDIRECTED 04/12/20 23:45 Urinary Catheter Insertion [Insert Urinary Catheter] [OM.PC] Q24H 04/13/20 00:13 CORONAVIRUS COVID-19 PCR PHL Stat
[2020-04-12] MEDS ORDERED: Sodium Chloride 0.9% 2.5 ML Syringe FLUSH PRN (23:31)
[2020-04-12] MEDS ORDERED: Sodium Chloride 0.9% 10 ML Syringe FLUSH PRN (23:31)
[2020-04-12] MEDS ORDERED: Sodium Chloride 0.9% 500 ML IV ONE (23:47)
[2020-04-13] MEDS ORDERED: cefTRIAXone 1 GM in Sodium Chloride 0.9% 50 ML IV ONE (00:34)
[2020-04-13 00:55] LABS: BLOOD UREA NITROGEN,BUN 21 mg/dL (7.0-18.0); CARBON DIOXIDE,CO2 22.6 mmol/L (21.0-32.0); CHLORIDE,CL 103 mmol/L (98-107); GLUCOSE RANDOM 120 mg/dL (74-106); SODIUM,NA 140 mmol/L (136-145)
[2020-04-13] MEDS ORDERED: cefTRIAXone 1 GM in Premix Bag 1 BAG IV ONE (01:29)
--- NOTE | 2020-04-13 02:41 | CT ---
HISTORY: Fall. TECHNIQUE: Noncontrast CT cervical spine. COMPARISON: 03/30/2020. FINDINGS: There is no acute cervical fracture or acute cervical malalignment. Degenerative disc and joint disease is present within the cervical spine. - At C1-C2, there is severe arthrosis of the articulation of the lateral masses of C1 and C2 with chronic bony erosion. At C2-C3, no central canal or foraminal stenosis. At C3-C4, no central canal or foraminal stenosis. At C4-C5, no central canal or foraminal stenosis. At C5-C6, no central canal or foraminal stenosis. At C6-C7, no central canal or foraminal stenosis. At C7-T1, no central canal or foraminal stenosis. IMPRESSION: No acute cervical fracture. Dictated by Barrera Emerson MD @ 04/13/2020 2:39:55 AM Please note that all CT scans at this facility use dose modulation, iterative reconstruction, and/or weight-based dosing when appropriate to reduce radiation dose to as low as reasonably achievable. Dictated by: Barrera Emerson MD @ 04/13/2020 02:39:59 (Electronically Signed)
--- NOTE | 2020-04-13 02:43 | CR ---
HISTORY: Fall. TECHNIQUE: One view pelvis. COMPARISON: 01/18/2020. FINDINGS: Examination is mildly limited by patient body habitus. No definite acute pelvic fracture. No hip joint space narrowing. Degenerative changes within the lumbar spine. There are likely degenerative changes of the sacroiliac joints. There are a few prominent gas-filled small bowel loops within the left abdomen. IMPRESSION: 1. Examination is mildly limited by patient body habitus. 2. No acute fracture. Dictated by Barrera Emerson MD @ 04/13/2020 2:42:11 AM Dictated by: Barrera Emerson MD @ 04/13/2020 02:42:18 (Electronically Signed)
--- NOTE | 2020-04-13 02:45 | CT ---
HISTORY: Fall. TECHNIQUE: Noncontrast head CT. COMPARISON: 03/30/2020. FINDINGS: There is no acute intracranial hemorrhage. There is a area of encephalomalacia involving the right occipital lobe which is unchanged and likely relates to remote infarction. Areas of white matter low attenuation are nonspecific but likely reflect sequelae of chronic small vessel ischemic changes. No mass effect or midline shift. No hydrocephalus. No extra-axial collection or hematoma. The mastoid air cells are clear. Paranasal sinuses are clear. No acute skull fracture. IMPRESSION: 1. No acute intracranial injury or acute intracranial disease. 2. 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 3. Chronic small vessel ischemic changes. Dictated by Barrera Emerson MD @ 04/13/2020 2:44:40 AM Please note that all CT scans at this facility use dose modulation, iterative reconstruction, and/or weight-based dosing when appropriate to reduce radiation dose to as low as reasonably achievable. Dictated by: Barrera Emerson MD @ 04/13/2020 02:44:44 (Electronically Signed)
--- NOTE | 2020-04-13 02:47 | CR ---
HISTORY: Fall. TECHNIQUE: One view of the chest. COMPARISON: 03/31/2020. FINDINGS: No focal lung infiltrate or pulmonary edema. No pneumothorax or pleural effusion. Cardiac size is upper limits of normal accounting for technique. Prior bilateral shoulder replacements. IMPRESSION: No acute disease. Dictated by Barrera Emerson MD @ 04/13/2020 2:45:59 AM Dictated by: Barrera Emerson MD @ 04/13/2020 02:46:04 (Electronically Signed)
[2020-04-13] MEDS ORDERED: Acetaminophen 325 MG Tab PO PRN (04:06)
[2020-04-13] MEDS ORDERED: Albuterol/Ipratropium 3.0-0.5 MG/3 ML Neb Soln NEB PRN (04:07)
--- NOTE | 2020-04-13 08:08 | PCM.HP.2 ---
<Mele Abbott - Last Filed: 04/13/20 15:20> H&P History of Present Illness - General Date of Service: 04/13/20 Admit Problem/Dx: Admission Diagnosis/Problem Admission Diagnosis/Problem UTI (urinary tract infection) due to urinary indwelling catheter Source of Information: Patient History Limitations: Reports: No Limitations - History of Present Illness Initial Comments - Free Text/Narative: 74F PMHx Afib on warfarin,lumbar back pain, DJD, CHF on lasix, chronic lymphedema, wheelchair bound at baseline, frequent falls: presenting today after slipping out of her wheelchair. Patient lives alone at home. Typically gets around mostly in wheelchair but does get up to use bathroom, transfer, etc. Lately has been very weak and unable to get up. Fell on 03/30 and was here diagnosed with rib fracture. Has had a few falls out of wheelchair since then with latest fall this morning. She called for lift assist. This evening she feels that she's unable to get up on her own or care for herself. ED course : +UTI Imaging unremarkable Given IV fluids +CTX Bedside: pt is tired but endorses increase frequency of falls (last admission was fall resulting in trauma alert with broken ribs); mentions she would like to not be placed in a residential. left leg Pain Score (Numeric/FACES): 5 - Related Data Allergies/Adverse Reactions: Allergies Allergy/AdvReac Type Severity Reaction Status Date / Time amoxicillin Allergy Rash Verified 04/13/20 05:00 cephalexin monohydrate Allergy Rash Verified 04/13/20 05:00 [From Keflex] Penicillins Allergy Rash Verified 04/13/20 05:00 rofecoxib [From Vioxx] Allergy Rash Verified 04/13/20 05:00 tetanus toxoid, adsorbed Allergy Rash Verified 04/13/20 05:00 valacyclovir HCl Allergy Rash Verified 04/13/20 05:00 [From Valtrex] wool Allergy Rash Verified 04/13/20 05:00 ferlacit Allergy Severe Hypotension Uncoded 04/13/20 05:00 Avalox Allergy Rash Uncoded 04/13/20 05:00 Bextra Allergy Rash Uncoded 04/13/20 05:00 celebrex Allergy Rash Uncoded 04/13/20 05:00 macrobid Allergy Rash Uncoded 04/13/20 05:00 plastic tape Allergy Rash Uncoded 04/13/20 05:00 Zofran Allergy Rash Uncoded 04/13/20 05:00 Home Medications: Home Meds Bumetanide [Bumex] 2 mg PO TID 04/12/19 [History] Gabapentin [Neurontin] 300 mg PO TID 04/12/19 [History] Latanoprost/Pf [Latanoprost 0.005% Eye Drop] 1 drop EYERT DAILY 04/12/19 [History] Metoprolol Succinate 100 mg PO DAILY 04/12/19 [History] allopurinoL [Zyloprim] 150 mg PO DAILY 04/12/19 [History] Warfarin Sodium [Coumadin] 6 mg PO TUTHSA 10/19/19 [History] Warfarin Sodium [Coumadin] 7 mg PO SUMOWEFR 10/19/19 [History] metOLazone [Metolazone] 2.5 mg PO MOWEFR 10/19/19 [History] rOPINIRole [Requip] 3 mg PO TID PRN 10/19/19 [History] Albuterol [Proair HFA] 2 puff INH ASDIRECTED PRN 01/18/20 [History] Cyclobenzaprine [Flexeril] 10 mg PO TID PRN 01/18/20 [History] Ferrous Sulfate [High Potency Iron] 65 mg PO DAILY 01/18/20 [History] Diclofenac Sodium [Diclo Gel] 1 applic TOP QID PRN 03/30/20 [History] Potassium Citrate [Potassium Citrate ER] 10 meq PO DAILY 03/30/20 [History] traMADol HCl [Tramadol HCl] 50 mg PO Q12HR PRN 03/30/20 [History] Acetaminophen [Tylenol] 650 mg PO Q4H PRN tablet 03/31/20 [Rx] Hydrocodone/Acetaminophen [Hydrocodone-Acetamin 5-325 mg] 1 each PO TID PRN 3 Days #9 tablet 03/31/20 [Rx] Acetaminophen [Tylenol] 650 mg PO Q6H PRN tablet 04/15/20 [Rx] Levofloxacin [Levaquin] 500 mg PO DAILY 5 Days #5 tablet 04/15/20 [Rx] Past Medical History HEENT History: Reports: Cataract, Impaired Vision 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 Cardiovascular History: Reports: Afib, Angina, Heart Failure Respiratory History: Reports: Bronchitis, Recurrent, SOB Genitourinary History: Reports: Pyelonephritis, Urinary Incontinence, UTI, Recurrent [employer] History: Reports: Musculoskeletal History: Reports: Fibromyalgia, Osteoarthritis, Osteoporosis, Other (See Below) Other Musculoskeletal History: MS more than 50 years Neurological History: Reports: MS Psychiatric History: Reports: None Endocrine/Metabolic History: Reports: Obesity/BMI 30+ Hematologic History: Reports: Anemia Immunologic History: Reports: None Oncologic (Cancer) History: Reports: Malignant Melanoma Dermatologic History: Reports: Other (See Below) Other Dermatologic History: melanoma to top of head - Infectious Disease History Infectious Disease History: Reports: Chicken Pox, Measles, Mumps - Past Surgical History HEENT Surgical History: Reports: Cataract Surgery, Tonsillectomy Cardiovascular Surgical History: Reports: Other (See Below) Other Cardiovascular Surgeries/Procedures: angiogram without stents Respiratory Surgical History: Reports: Other (See Below) Other Respiratory Surgeries/Procedures: bronchoscopy February 2019 GI Surgical History: Reports: Appendectomy, Bariatric Procedure, Cholecystectomy, Colonoscopy, Other (See Below) Other GI Surgeries/Procedures: gastric bypass surgery Female Surgical History: Reports: Hysterectomy, Other (See Below) Other Female Surgeries/Procedures: bladder suspension Neurological Surgical History: Reports: None Musculoskeletal Surgical History: Reports: Knee Replacement, Shoulder Replacement, Other (See Below) Other Musculoskeletal Surgeries/Procedures:: left femur surgery Dermatological Surgical History: Reports: None Social & Family History - Family History Family Medical History: Noncontributory - Tobacco Use Smoking Status *Q: Unknown Ever Smoked Second Hand Smoke Exposure: Yes - Caffeine Use Caffeine Use: Reports: Coffee, Tea - Recreational Drug Use Recreational Drug Use: No H&P Review of Systems - Review of Systems: Review Of Systems: See Below General: Reports: Weakness, Fatigue. Denies: Fever, Chills HEENT: Reports: No Symptoms Pulmonary: Reports: No Symptoms Cardiovascular: Reports: No Symptoms Gastrointestinal: Reports: Diarrhea. Denies: Constipation Genitourinary: Reports: Dysuria, Burning Musculoskeletal: Reports: No Symptoms Skin: Reports: No Symptoms Psychiatric: Reports: No Symptoms Neurological: Reports: No Symptoms Hematologic/Lymphatic: Reports: Easy Bleeding Exam - Exam Exam: See Below - Vital Signs Vital Signs: Last Vital Signs Temp 98.8 F 04/13/20 05:44 Pulse 95 04/13/20 05:44 Resp 18 04/13/20 04:15 BP 121/60 04/13/20 05:44 Pulse Ox 97 04/13/20 05:44 Weight: 128.82 kg - Exam General: Alert, Oriented, Cooperative HEENT: EOMI Neck: Supple, Trachea Midline Lungs: Clear to Auscultation, Normal Respiratory Effort Cardiovascular: Regular Rate, Irregular Rhythm GI/Abdominal Exam: Soft, Non-Tender Extremities: Other (+ower extremity lymphedema ) Skin: Warm Neuro Extensive - Mental Status: Alert, Oriented x3 Neuro Extensive - Motor, Sensory, Reflexes: CN II-XII Intact Psychiatric: Alert - Patient Data Lab Results Last 24 hrs: Laboratory Results - last 24 hr 04/12/20 04/12/20 04/12/20 Range/Units 23:40 23:40 23:40 WBC 10.35 (4.0-11.0) K/uL RBC 3.69 L (4.30-5.90) M/uL Hgb 9.9 L (12.0-16.0) g/dL Hct 31.8 L (36.0-46.0) % MCV 86.2 (80.0-98.0) fL MCH 26.8 L (27.0-32.0) pg MCHC 31.1 (31.0-37.0) g/dL RDW Std Deviation 51.0 (28.0-62.0) fl RDW Coeff of Radha 16 H (11.0-15.0) % Plt Count 265 (150-400) K/uL MPV 10.00 (7.40-12.00) fL Neut % (Auto) 80.7 H (48.0-80.0) % Lymph % (Auto) 11.4 L (16.0-40.0) % Aiken % (Auto) 7.1 (0.0-15.0) % Eos % (Auto) 0.6 (0.0-7.0) % Baso % (Auto) 0.2 (0.0-1.5) % Neut # (Auto) 8.4 H (1.4-5.7) K/uL Lymph # (Auto) 1.2 (0.6-2.4) K/uL Aiken # (Auto) 0.7 (0.0-0.8) K/uL Eos # (Auto) 0.1 (0.0-0.7) K/uL Baso # (Auto) 0.0 (0.0-0.1) K/uL Nucleated RBC % 0.0 /100WBC Nucleated RBCs # 0 K/uL INR 2.70 APTT 35.4 H (18.6-31.3) SEC Lactate 1.4 (0.20-2.00) mmol/L Sodium (136-145) mmol/L Potassium (3.5-5.1) mmol/L Chloride (98-107) mmol/L Carbon Dioxide (21.0-32.0) mmol/L BUN (7.0-18.0) mg/dL Creatinine (0.6-1.0) mg/dL Est Cr Clr Drug Dosing mL/min Estimated GFR (MDRD) ml/min Glucose (74-106) mg/dL Calcium (8.5-10.1) mg/dL Magnesium (1.8-2.4) mg/dL Total Bilirubin (0.2-1.0) mg/dL AST (15-37) IU/L ALT (14-63) IU/L Alkaline Phosphatase (46-116) U/L Troponin I (0.000-0.056) ng/mL B-Natriuretic Peptide (<100) PG/ML Total Protein (6.4-8.2) g/dL Albumin (3.4-5.0) g/dL Globulin (2.6-4.0) g/dL Albumin/Globulin Ratio (0.9-1.6) Urine Color Urine Appearance Urine pH (5.0-8.0) Ur Specific [place] (1.001-1.035) Urine Protein (NEGATIVE) mg/dL Urine Glucose (UA) (NEGATIVE) mg/dL Urine Ketones (NEGATIVE) mg/dL Urine Occult Blood (NEGATIVE) Urine Nitrite (NEGATIVE) Urine Bilirubin (NEGATIVE) Urine Urobilinogen (<2.0) EU/dL Ur Leukocyte Esterase (NEGATIVE) Urine RBC (0-2/HPF) Urine WBC (0-5/HPF) Ur Epithelial Cells (NONE-FEW) Urine Bacteria (NEGATIVE) Urine Mucus (NONE-MOD) SARS CoV-2 RNA Rapid AGUILA (NEGATIVE) 04/12/20 04/12/20 04/13/20 Range/Units 23:40 23:40 00:00 WBC (4.0-11.0) K/uL RBC (4.30-5.90) M/uL Hgb (12.0-16.0) g/dL Hct (36.0-46.0) % MCV (80.0-98.0) fL MCH (27.0-32.0) pg MCHC (31.0-37.0) g/dL RDW Std Deviation (28.0-62.0) fl RDW Coeff of Radha (11.0-15.0) % Plt Count (150-400) K/uL MPV (7.40-12.00) fL Neut % (Auto) (48.0-80.0) % Lymph % (Auto) (16.0-40.0) % Aiken % (Auto) (0.0-15.0) % Eos % (Auto) (0.0-7.0) % Baso % (Auto) (0.0-1.5) % Neut # (Auto) (1.4-5.7) K/uL Lymph # (Auto) (0.6-2.4) K/uL Aiken # (Auto) (0.0-0.8) K/uL Eos # (Auto) (0.0-0.7) K/uL Baso # (Auto) (0.0-0.1) K/uL Nucleated RBC % /100WBC Nucleated RBCs # K/uL INR APTT (18.6-31.3) SEC Lactate (0.20-2.00) mmol/L Sodium 140 (136-145) mmol/L Potassium 4.0 (3.5-5.1) mmol/L Chloride 103 (98-107) mmol/L Carbon Dioxide 22.6 (21.0-32.0) mmol/L BUN 21 H (7.0-18.0) mg/dL Creatinine 1.3 H (0.6-1.0) mg/dL Est Cr Clr Drug Dosing 40.88 mL/min Estimated GFR (MDRD) 40.3 ml/min Glucose 120 H (74-106) mg/dL Calcium 8.8 (8.5-10.1) mg/dL Magnesium 2.0 (1.8-2.4) mg/dL Total Bilirubin 0.9 (0.2-1.0) mg/dL AST 64 H (15-37) IU/L ALT 33 (14-63) IU/L Alkaline Phosphatase 139 H (46-116) U/L Troponin I < 0.050 (0.000-0.056) ng/mL B-Natriuretic Peptide 186 H (<100) PG/ML Total Protein 7.4 (6.4-8.2) g/dL Albumin 3.4 (3.4-5.0) g/dL Globulin 4.0 (2.6-4.0) g/dL Albumin/Globulin Ratio 0.9 (0.9-1.6) Urine Color YELLOW Urine Appearance SLT CLOUDY Urine pH 5.5 (5.0-8.0) Ur Specific [place] 1.020 (1.001-1.035) Urine Protein NEGATIVE (NEGATIVE) mg/dL Urine Glucose (UA) NEGATIVE (NEGATIVE) mg/dL Urine Ketones TRACE H (NEGATIVE) mg/dL Urine Occult Blood TRACE-INTACT H (NEGATIVE) Urine Nitrite POSITIVE H (NEGATIVE) Urine Bilirubin NEGATIVE (NEGATIVE) Urine Urobilinogen 0.2 (<2.0) EU/dL Ur Leukocyte Esterase NEGATIVE (NEGATIVE) Urine RBC 0-2 (0-2/HPF) Urine WBC 0-2 (0-5/HPF) Ur Epithelial Cells FEW (NONE-FEW) Urine Bacteria 3+ H (NEGATIVE) Urine Mucus LIGHT (NONE-MOD) SARS CoV-2 RNA Rapid AGUILA (NEGATIVE) 04/13/20 Range/Units 00:05 WBC (4.0-11.0) K/uL RBC (4.30-5.90) M/uL Hgb (12.0-16.0) g/dL Hct (36.0-46.0) % MCV (80.0-98.0) fL MCH (27.0-32.0) pg MCHC (31.0-37.0) g/dL RDW Std Deviation (28.0-62.0) fl RDW Coeff of Radha (11.0-15.0) % Plt Count (150-400) K/uL MPV (7.40-12.00) fL Neut % (Auto) (48.0-80.0) % Lymph % (Auto) (16.0-40.0) % Aiken % (Auto) (0.0-15.0) % Eos % (Auto) (0.0-7.0) % Baso % (Auto) (0.0-1.5) % Neut # (Auto) (1.4-5.7) K/uL Lymph # (Auto) (0.6-2.4) K/uL Aiken # (Auto) (0.0-0.8) K/uL Eos # (Auto) (0.0-0.7) K/uL Baso # (Auto) (0.0-0.1) K/uL Nucleated RBC % /100WBC Nucleated RBCs # K/uL INR APTT (18.6-31.3) SEC Lactate (0.20-2.00) mmol/L Sodium (136-145) mmol/L Potassium (3.5-5.1) mmol/L Chloride (98-107) mmol/L Carbon Dioxide (21.0-32.0) mmol/L BUN (7.0-18.0) mg/dL Creatinine (0.6-1.0) mg/dL Est Cr Clr Drug Dosing mL/min Estimated GFR (MDRD) ml/min Glucose (74-106) mg/dL Calcium (8.5-10.1) mg/dL Magnesium (1.8-2.4) mg/dL Total Bilirubin (0.2-1.0) mg/dL AST (15-37) IU/L ALT (14-63) IU/L Alkaline Phosphatase (46-116) U/L Troponin I (0.000-0.056) ng/mL B-Natriuretic Peptide (<100) PG/ML Total Protein (6.4-8.2) g/dL Albumin (3.4-5.0) g/dL Globulin (2.6-4.0) g/dL Albumin/Globulin Ratio (0.9-1.6) Urine Color Urine Appearance Urine pH (5.0-8.0) Ur Specific [place] (1.001-1.035) Urine Protein (NEGATIVE) mg/dL Urine Glucose (UA) (NEGATIVE) mg/dL Urine Ketones (NEGATIVE) mg/dL Urine Occult Blood (NEGATIVE) Urine Nitrite (NEGATIVE) Urine Bilirubin (NEGATIVE) Urine Urobilinogen (<2.0) EU/dL Ur Leukocyte Esterase (NEGATIVE) Urine RBC (0-2/HPF) Urine WBC (0-5/HPF) Ur Epithelial Cells (NONE-FEW) Urine Bacteria (NEGATIVE) Urine Mucus (NONE-MOD) SARS CoV-2 RNA Rapid AGUILA NEGATIVE (NEGATIVE) Result Diagrams: 04/13/20 08:45 04/12/20 23:40 Sepsis Event Note - Evaluation Sepsis Screening Result: No Definite Risk - Focused Exam Vital Signs: Vital Signs Temp Pulse Resp BP Pulse Ox 04/13/20 05:44 98.8 F 95 121/60 97 04/13/20 04:15 103 H 18 129/78 95 04/13/20 03:00 105 H 16 136/71 96 04/13/20 02:00 102 H 16 132/77 95 04/12/20 23:21 98.2 F 108 H 20 113/67 98 Problem List Initiated/Reviewed/Updated: Yes Orders Last 24hrs: Active Orders 24 hr Category Date Time Status Patient Status [ADT] Routine ADT 04/13/20 03:08 Active Ambulate [RC] ASDIRECTED Care 04/13/20 04:02 Active Antiembolic Devices [RC] PER UNIT ROUTINE Care 04/13/20 04:07 Active Cardiac Monitoring [RC] . DIRECTED Care 04/12/20 23:31 Active EKG Documentation Completion [RC] STAT Care 04/12/20 23:31 Active Oxygen Therapy Adult [Oxygen Therapy] [RC] ASDIRECTED Care 04/13/20 04:04 Active Pulse Oximetry [RC] ASDIRECTED Care 04/12/20 23:31 Active RT Aerosol Therapy [RC] ASDIRECTED Care 04/13/20 04:08 Active Urinary Catheter Assessment [RC] ASDIRECTED Care 04/12/20 23:33 Active Urinary Catheter Insertion [Insert Urinary Catheter] [ Care 04/12/20 23:45 Ordered OM.PC] Q24H Vital Signs [RC] Q4H Care 04/13/20 04:00 Active Heart Healthy Diet [DIET] Diet 04/13/20 Breakfast Active CORONAVIRUS COVID-19 PCR PHL Stat Lab 04/13/20 00:13 Received Acetaminophen [TylenoL] Med 04/13/20 04:06 Active 650 mg PO Q6H PRN Albuterol/Ipratropium [DuoNeb 3.0-0.5 MG/3 ML] Med 04/13/20 04:07 Active 3 ml NEB Q4HRRT PRN Sodium Chloride 0.9% [Saline Flush] Med 04/12/20 23:31 Active 10 ml FLUSH ASDIRECTED PRN Sodium Chloride 0.9% [Saline Flush] Med 04/12/20 23:31 Active 2.5 ml FLUSH ASDIRECTED PRN cefTRIAXone [Rocephin in Dextrose,Iso-Osm 1 GM/50 ML] 1 Med 04/13/20 09:00 Active gm Premix Bag 1 bag IV Q24H SCD [Sequential Compression Device] [OM.PC] Routine Oth 04/13/20 04:07 Ordered Saline Lock Insert [OM.PC] Stat Oth 04/12/20 23:31 Ordered Medication Orders Acetaminophen (Tylenol) 650 mg PO Q6H PRN PRN Reason: Pain Albuterol/Ipratropium (Duoneb 3.0-0.5 Mg/3 Ml) 3 ml NEB Q4HRRT PRN PRN Reason: Shortness of Breath Ceftriaxone Sodium/Dextrose 1 (gm/ Premix) 50 mls @ 100 mls/hr IV Q24H SITA Sodium Chloride (Saline Flush) 10 ml FLUSH ASDIRECTED PRN PRN Reason: Keep Vein Open Sodium Chloride (Saline Flush) 2.5 ml FLUSH ASDIRECTED PRN PRN Reason: Keep Vein Open Assessment/Plan Comment:: Assessment: 1. Frequent Falls w. UTI 2. Recurrent UTI 3. Normocytic Anemia 4. NISREEN 5. COVID negative Plan Admit to observation. Full code. I/O's per routine Vitals per routine 1. UTI: continue CTX daily unitl Cx+sensitivities return Frequent UTI + falls in past ; continue to monitor; PT/OT consult placed to assess balance/transfers etc. 2. HTN: hold BP meds for now until perfusion is r.o as part of her reason for increasing falls/lethargy Continue home pain meds + warfarin regimen; INR checked and adjusted accordingly <Katie Hedrick - Last Filed: 04/15/20 13:35> H&P History of Present Illness - General Admit Problem/Dx: Admission Diagnosis/Problem Admission Diagnosis/Problem UTI (urinary tract infection) due to urinary indwelling catheter Exam - Vital Signs Vital Signs: Last Vital Signs Temp 36.3 C 04/15/20 11:59 Pulse 85 04/15/20 11:59 Resp 18 04/15/20 11:59 BP 111/63 04/15/20 11:59 Pulse Ox 96 04/15/20 11:59 - Patient Data Lab Results Last 24 hrs: Laboratory Results - last 24 hr 04/13/20 04/15/20 04/15/20 Range/Units 00:13 06:07 06:07 WBC 6.72 (4.0-11.0) K/uL RBC 3.29 L (4.30-5.90) M/uL Hgb 8.8 L (12.0-16.0) g/dL Hct 28.6 L (36.0-46.0) % MCV 86.9 (80.0-98.0) fL MCH 26.7 L (27.0-32.0) pg MCHC 30.8 L (31.0-37.0) g/dL RDW Std Deviation 52.6 (28.0-62.0) fl RDW Coeff of Radha 17 H (11.0-15.0) % Plt Count 200 (150-400) K/uL MPV 9.40 (7.40-12.00) fL Neut % (Auto) 67.3 (48.0-80.0) % Lymph % (Auto) 19.6 (16.0-40.0) % [place] % (Auto) 8.0 (0.0-15.0) % Eos % (Auto) 4.8 (0.0-7.0) % Baso % (Auto) 0.3 (0.0-1.5) % Neut # (Auto) 4.5 (1.4-5.7) K/uL Lymph # (Auto) 1.3 (0.6-2.4) K/uL [place] # (Auto) 0.5 (0.0-0.8) K/uL Eos # (Auto) 0.3 (0.0-0.7) K/uL Baso # (Auto) 0.0 (0.0-0.1) K/uL Nucleated RBC % 0.0 /100WBC Nucleated RBCs # 0 K/uL INR Sodium 140 (136-145) mmol/L Potassium 3.6 (3.5-5.1) mmol/L Chloride 106 (98-107) mmol/L Carbon Dioxide 25.0 (21.0-32.0) mmol/L BUN 14 (7.0-18.0) mg/dL Creatinine 1.0 (0.6-1.0) mg/dL Est Cr Clr Drug Dosing 51.30 mL/min Estimated GFR (MDRD) 54.5 ml/min Glucose 119 H (74-106) mg/dL Calcium 8.3 L (8.5-10.1) mg/dL SARS-CoV-2 (PCR) NOT DETECTED (NOT DETECT) 04/15/20 Range/Units 06:07 WBC (4.0-11.0) K/uL RBC (4.30-5.90) M/uL Hgb (12.0-16.0) g/dL Hct (36.0-46.0) % MCV (80.0-98.0) fL MCH (27.0-32.0) pg MCHC (31.0-37.0) g/dL RDW Std Deviation (28.0-62.0) fl RDW Coeff of Radha (11.0-15.0) % Plt Count (150-400) K/uL MPV (7.40-12.00) fL Neut % (Auto) (48.0-80.0) % Lymph % (Auto) (16.0-40.0) % [place] % (Auto) (0.0-15.0) % Eos % (Auto) (0.0-7.0) % Baso % (Auto) (0.0-1.5) % Neut # (Auto) (1.4-5.7) K/uL Lymph # (Auto) (0.6-2.4) K/uL [place] # (Auto) (0.0-0.8) K/uL Eos # (Auto) (0.0-0.7) K/uL Baso # (Auto) (0.0-0.1) K/uL Nucleated RBC % /100WBC Nucleated RBCs # K/uL INR 2.57 Sodium (136-145) mmol/L Potassium (3.5-5.1) mmol/L Chloride (98-107) mmol/L Carbon Dioxide (21.0-32.0) mmol/L BUN (7.0-18.0) mg/dL Creatinine (0.6-1.0) mg/dL Est Cr Clr Drug Dosing mL/min Estimated GFR (MDRD) ml/min Glucose (74-106) mg/dL Calcium (8.5-10.1) mg/dL SARS-CoV-2 (PCR) (NOT DETECT) Result Diagrams: 04/15/20 06:07 04/15/20 06:07 Tye Results Last 24 hrs: Microbiology 04/15/20 12:30 Stool Occult Blood (TYE) - Final Stool / Feces 04/13/20 00:00 Urine Culture - Final Urine, Catheterized Klebsiella Pneumoniae Sepsis Event Note - Focused Exam Vital Signs: Vital Signs Temp Pulse Pulse Resp BP BP Pulse Ox 04/15/20 11:59 36.3 C 85 18 111/63 96 04/15/20 09:25 102 H 116/58 L 04/15/20 08:02 37.2 C 102 H 16 116/58 L 95 04/15/20 03:00 37.0 C 95 18 117/68 96 Orders Last 24hrs: Active Orders 24 hr Category Date Time Status Ready for Discharge [RC] PER UNIT ROUTINE Care 04/15/20 11:37 Active BASIC METABOLIC PANEL,BMP [CHEM] AM Lab 04/16/20 05:11 Ordered CBC WITH AUTO DIFF [HEME] AM Lab 04/16/20 05:11 Ordered INR,PT,PROTHROMBIN TIME [COAG] DAILY Lab 04/16/20 05:00 Ordered INR,PT,PROTHROMBIN TIME [COAG] DAILY Lab 04/17/20 05:00 Ordered INR,PT,PROTHROMBIN TIME [COAG] DAILY Lab 04/18/20 05:00 Ordered Medication Orders Acetaminophen (Tylenol) 650 mg PO Q6H PRN PRN Reason: Pain Hydrocodone Bitart/Acetaminophen (Douglas 325-5 Mg) 1 tab PO TID PRN PRN Reason: Pain Last Admin: 04/14/20 17:11 Dose: 1 tab Documented by: Admin: 04/14/20 00:36 Dose: 1 tab Documented by: MAGDALENA Albuterol/Ipratropium (Duoneb 3.0-0.5 Mg/3 Ml) 3 ml NEB Q4HRRT PRN PRN Reason: Shortness of Breath Allopurinol (Zyloprim) 150 mg PO DAILY SITA Last Admin: 04/15/20 09:24 Dose: 150 mg Documented by: Admin: 04/14/20 09:05 Dose: 150 mg Documented by: SONIDO Cosigned by: HYUN Admin: 04/13/20 15:21 Dose: 150 mg Documented by: ALTAGRACIA Gabapentin (Neurontin) 300 mg PO TID [facility] Last Admin: 04/15/20 06:32 Dose: 300 mg Documented by: Admin: 04/14/20 23:31 Dose: 300 mg Documented by: Admin: 04/14/20 13:18 Dose: 300 mg Documented by: Admin: 04/14/20 06:11 Dose: 300 mg Documented by: Admin: 04/13/20 22:59 Dose: 300 mg Documented by: Admin: 04/13/20 15:25 Dose: 300 mg Documented by: ALTAGRACIA Ceftriaxone Sodium/Dextrose 1 (gm/ Premix) 50 mls @ 100 mls/hr IV Q24H [facility] Last Admin: 04/15/20 01:45 Dose: 100 mls/hr Documented by: Infusion: 04/14/20 01:09 Dose: 100 mls/hr Documented by: Admin: 04/14/20 00:39 Dose: 100 mls/hr Documented by: MAGDALENA Metoprolol Succinate (Toprol Xl) 100 mg PO DAILY [facility] Admin: 04/15/20 09:25 Dose: 100 mg Documented by: Admin: 04/14/20 09:02 Dose: 100 mg Documented by: SONIDO Cosigned by: HYUN Admin: 04/13/20 15:22 Dose: 100 mg Documented by: ALTAGRACIA Ropinirole HCl (Requip) 3 mg PO TID PRN PRN Reason: restless leg Last Admin: 04/15/20 03:10 Dose: 3 mg Documented by: Admin: 04/14/20 02:23 Dose: 3 mg Documented by: MAGDALENA Sodium Chloride (Saline Flush) 10 ml FLUSH ASDIRECTED PRN PRN Reason: Keep Vein Open Sodium Chloride (Saline Flush) 2.5 ml FLUSH ASDIRECTED PRN PRN Reason: Keep Vein Open Warfarin Sodium (Coumadin Sliding Scale) 0 each PO DAILY@1400 SITA Last Admin: 04/14/20 15:05 Dose: Not Given Documented by: KIZZY Assessment/Plan Comment:: I performed a history and physical exam of the patient and discussed management with resident. I have reviewed the residents note and agree with documented findings and plan unless otherwise specified in my note.
[2020-04-13] MEDS ORDERED: WARFARIN SODIUM 6 MG PO SCH (08:15)
[2020-04-13] MEDS ORDERED: cefTRIAXone 1 GM in Premix Bag 1 BAG IV SCH (09:00)
[2020-04-13] MEDS ORDERED: Sodium Chloride 0.9% 1,000 ML IV SCH (11:45)
[2020-04-13] MEDS ORDERED: Warfarin 2 MG Tab PO SCH (14:00)
[2020-04-13] MEDS ORDERED: Warfarin 2.5 MG Tab PO SCH ×2 (14:00→15:35)
[2020-04-13] MEDS: Allopurinol 100 MG Tab PO SCH (15:21)
[2020-04-13] MEDS: Metoprolol Succinate 100 MG Tab.ER PO SCH (15:22)
[2020-04-13] MEDS: Gabapentin 100 MG Cap PO SCH ×2 (15:25→22:59)
[2020-04-13] MEDS ORDERED: Sodium Chloride 0.9% 1,000 ML IV ONE (22:00)
[2020-04-14] MEDS: Acetaminophen/HYDROcodone 325-5 MG Tab PO PRN ×2 (00:36→17:11)
[2020-04-14] MEDS: cefTRIAXone 1 GM in Premix Bag 1 BAG IV SCH (00:39)
[2020-04-14] MEDS: rOPINIRole 1 MG Tab PO PRN (02:23)
[2020-04-14] MEDS: Gabapentin 100 MG Cap PO SCH ×3 (06:11→23:31)
[2020-04-14 06:48] LABS: CARBON DIOXIDE,CO2 24.1 mmol/L (21.0-32.0); POTASSIUM,K 3.4 mmol/L (3.5-5.1)
[2020-04-14] MEDS ORDERED: Potassium Chloride 20 MEQ Tab.ER PO ONE (07:48)
[2020-04-14] MEDS: Metoprolol Succinate 100 MG Tab.ER PO SCH (09:02)
[2020-04-14] MEDS: Allopurinol 100 MG Tab PO SCH (09:05)
--- NOTE | 2020-04-14 11:37 | PCM.PN ---
<Mele Abbott - Last Filed: 04/14/20 11:33> - General Info Date of Service: 04/14/20 Subjective Update: Bedside: less lethargic and no acute complaints. mentions to me in past taking Benadryl with her antibiotics Functional Status: Reports: Pain Controlled - Review of Systems General: Reports: No Symptoms HEENT: Reports: No Symptoms Pulmonary: Reports: No Symptoms Cardiovascular: Reports: No Symptoms Gastrointestinal: Reports: No Symptoms Genitourinary: Reports: No Symptoms Musculoskeletal: Reports: No Symptoms, Other (recent rib fracture; mild discomfort w. deep inspiration ) Skin: Reports: No Symptoms Neurological: Reports: No Symptoms - Patient Data Vitals - Most Recent: Last Vital Signs Temp 98.8 F 04/14/20 07:06 Pulse 111 H 04/14/20 09:02 Resp 16 04/14/20 07:06 BP 113/64 04/14/20 09:02 Pulse Ox 96 04/14/20 07:06 Weight - Most Recent: 117.662 kg I&O - Last 24 Hours: Intake & Output 04/13/20 04/14/20 04/14/20 22:59 06:59 14:59 Intake Total 500 370 Balance 500 370 Lab Results Last 24 Hours: Laboratory Results - last 24 hr 04/14/20 04/14/20 04/14/20 Range/Units 05:25 05:25 05:25 WBC 8.10 (4.0-11.0) K/uL RBC 3.29 L (4.30-5.90) M/uL Hgb 8.8 L (12.0-16.0) g/dL Hct 28.6 L (36.0-46.0) % MCV 86.9 (80.0-98.0) fL MCH 26.7 L (27.0-32.0) pg MCHC 30.8 L (31.0-37.0) g/dL RDW Std Deviation 52.7 (28.0-62.0) fl RDW Coeff of Radha 17 H (11.0-15.0) % Plt Count 213 (150-400) K/uL MPV 10.30 (7.40-12.00) fL Neut % (Auto) 69.0 (48.0-80.0) % Lymph % (Auto) 19.1 (16.0-40.0) % [place] % (Auto) 8.1 (0.0-15.0) % Eos % (Auto) 3.6 (0.0-7.0) % Baso % (Auto) 0.2 (0.0-1.5) % Neut # (Auto) 5.6 (1.4-5.7) K/uL Lymph # (Auto) 1.6 (0.6-2.4) K/uL [place] # (Auto) 0.7 (0.0-0.8) K/uL Eos # (Auto) 0.3 (0.0-0.7) K/uL Baso # (Auto) 0.0 (0.0-0.1) K/uL Nucleated RBC % 0.0 /100WBC Nucleated RBCs # 0 K/uL INR 3.96 Sodium 140 (136-145) mmol/L Potassium 3.4 L (3.5-5.1) mmol/L Chloride 105 (98-107) mmol/L Carbon Dioxide 24.1 (21.0-32.0) mmol/L BUN 15 (7.0-18.0) mg/dL Creatinine 1.1 H (0.6-1.0) mg/dL Est Cr Clr Drug Dosing 46.63 mL/min Estimated GFR (MDRD) 48.8 ml/min Glucose 113 H (74-106) mg/dL Calcium 8.2 L (8.5-10.1) mg/dL Med Orders - Current: Current Medications Acetaminophen (Tylenol) 650 mg PO Q6H PRN PRN Reason: Pain Hydrocodone Bitart/Acetaminophen (Doyline 325-5 Mg) 1 tab PO TID PRN PRN Reason: Pain Last Admin: 04/14/20 00:36 Dose: 1 tab Documented by: Albuterol/Ipratropium (Duoneb 3.0-0.5 Mg/3 Ml) 3 ml NEB Q4HRRT PRN PRN Reason: Shortness of Breath Allopurinol (Zyloprim) 150 mg PO DAILY [facility] Last Admin: 04/14/20 09:05 Dose: 150 mg Documented by: Gabapentin (Neurontin) 300 mg PO TID [facility] Last Admin: 04/14/20 06:11 Dose: 300 mg Documented by: Ceftriaxone Sodium/Dextrose 1 (gm/ Premix) 50 mls @ 100 mls/hr IV Q24H [facility] Last Admin: 04/14/20 00:39 Dose: 100 mls/hr Documented by: Metoprolol Succinate (Toprol Xl) 100 mg PO DAILY [facility] Last Admin: 04/14/20 09:02 Dose: 100 mg Documented by: Ropinirole HCl (Requip) 3 mg PO TID PRN PRN Reason: restless leg Last Admin: 04/14/20 02:23 Dose: 3 mg Documented by: Sodium Chloride (Saline Flush) 10 ml FLUSH ASDIRECTED PRN PRN Reason: Keep Vein Open Sodium Chloride (Saline Flush) 2.5 ml FLUSH ASDIRECTED PRN PRN Reason: Keep Vein Open Warfarin Sodium (Coumadin Sliding Scale) 0 each PO DAILY@1400 [facility] Discontinued Medications Sodium Chloride (Normal Saline) 500 mls @ 999 mls/hr IV .BOLUS ONE Stop: 04/13/20 00:17 Last Admin: 04/13/20 00:19 Dose: 999 mls/hr Documented by: Ceftriaxone Sodium 1 gm/ (Sodium Chloride) 50 mls @ 200 mls/hr IV ONETIME ONE Stop: 04/13/20 00:48 Last Admin: 04/13/20 01:07 Dose: Not Given Documented by: Ceftriaxone Sodium/Dextrose (Rocephin In Dextrose,Iso-Osm 1 Gm/50 Ml) Confirm Administered Dose 50 mls @ as directed .ROUTE .STK-MED ONE Stop: 04/13/20 00:53 Last Admin: 04/13/20 01:07 Dose: Not Given Documented by: Ceftriaxone Sodium/Dextrose 1 (gm/ Premix) 50 mls @ 100 mls/hr IV ONETIME ONE Stop: 04/13/20 01:58 Last Admin: 04/13/20 01:00 Dose: 100 mls/hr Documented by: Ceftriaxone Sodium/Dextrose 1 (gm/ Premix) 50 mls @ 100 mls/hr IV Q24H [facility] Sodium Chloride (Normal Saline) 1,000 mls @ 125 mls/hr IV Q8H [facility] Stop: 04/13/20 19:44 Last Admin: 04/13/20 13:36 Dose: 125 mls/hr Documented by: Sodium Chloride (Normal Saline) 1,000 mls @ 125 mls/hr IV ONETIME ONE Stop: 04/14/20 05:59 Last Admin: 04/13/20 22:00 Dose: 125 mls/hr Documented by: Potassium Chloride (Klor-Con M20) 40 meq PO ONETIME ONE Stop: 04/14/20 07:49 Last Admin: 04/14/20 09:05 Dose: 40 meq Documented by: Warfarin Sodium (Coumadin) 2.5 mg PO 04/13/20@1400 [facility] Stop: 04/13/20 14:01 Last Admin: 04/13/20 16:08 Dose: 2.5 mg Documented by: Warfarin Sodium (Coumadin) 2.5 mg PO 04/13/20@1535 [facility] Stop: 04/13/20 15:36 Last Admin: 04/13/20 16:08 Dose: Not Given Documented by: - Exam Quality Assessment: No: Supplemental Oxygen General: Alert, Oriented HEENT: EOMI, Mucous Membr. Moist/[place] Neck: Supple Lungs: Other (decreased bs; possibly do to body habitus; bracing due to rib fracture/contusion ) Cardiovascular: Other (mildly tachycardi at times ) GI/Abdominal Exam: Soft, Non-Tender Back Exam: Normal Inspection Extremities: Other (+1-2 pitting edema of l/e b.l ) Skin: Warm Wound/Incisions: Healing Well Neurological: No New Focal Deficit Psy/Mental Status: Alert, Normal Affect, Normal Mood Sepsis Event Note - Evaluation Sepsis Screening Result: No Definite Risk - Focused Exam Vital Signs: Vital Signs Temp Pulse Pulse Resp BP BP Pulse Ox 04/14/20 09:02 111 H 113/64 04/14/20 07:06 98.8 F 101 H 16 111/60 96 04/14/20 04:00 98.9 F 103 H 17 105/55 L 95 04/14/20 00:19 96.5 F L 96 20 115/60 98 - Problem List Review Problem List Initiated/Reviewed/Updated: Yes - My Orders Last 24 Hours: My Active Orders 04/13/20 14:00 Gabapentin [Neurontin] 300 mg PO TID Metoprolol Succinate [Toprol XL] 100 mg PO DAILY Warfarin Sliding Scale [Coumadin Sliding Scale] 0 each PO DAILY@1400 allopurinoL [Zyloprim] 150 mg PO DAILY 04/13/20 14:05 Acetaminophen/HYDROcodone [Doyline 325-5 MG] 1 tab PO TID PRN 04/14/20 07:51 Hemoccult [OCCULT BLOOD DIAGNOSTIC] [OP] Routine 04/15/20 05:11 BASIC METABOLIC PANEL,BMP [CHEM] AM CBC WITH AUTO DIFF [HEME] AM 04/16/20 05:11 BASIC METABOLIC PANEL,BMP [CHEM] AM CBC WITH AUTO DIFF [HEME] AM - Plan Plan:: Assessment: 1. Frequent Falls w. UTI 2. Recurrent UTI 3. Normocytic Anemia 4. NISREEN 5. COVID negative Plan Admit to observation. Full code. I/O's per routine Vitals per routine 1. UTI: continue CTX daily unitl Cx+sensitivities return Frequent UTI + falls in past ; continue to monitor; PT/OT consult placed to assess balance/transfers etc. Falls could also be attributed to patients liberal use of Benadryl to possible reactions to antibiotics (concners about penicillin allergy); has not had any reactions here in inpatient 2. HTN: continue home meds for HTN/Rate control Continue home pain meds + warfarin regimen; INR checked and adjusted accordingly <Katie Hedrick - Last Filed: 04/15/20 14:08> - General Info Subjective Update: I have seen and evaluated the patient and agree with the residents note unless specified in my note - Patient Data Vitals - Most Recent: Last Vital Signs Temp 36.3 C 04/15/20 11:59 Pulse 85 04/15/20 11:59 Resp 18 04/15/20 11:59 BP 111/63 04/15/20 11:59 Pulse Ox 96 04/15/20 11:59 I&O - Last 24 Hours: Intake & Output 04/14/20 04/15/20 04/15/20 22:59 06:59 14:59 Intake Total 500 360 Output Total 350 601 Balance 150 -241 Lab Results Last 24 Hours: Laboratory Results - last 24 hr 04/13/20 04/15/20 04/15/20 Range/Units 00:13 06:07 06:07 WBC 6.72 (4.0-11.0) K/uL RBC 3.29 L (4.30-5.90) M/uL Hgb 8.8 L (12.0-16.0) g/dL Hct 28.6 L (36.0-46.0) % MCV 86.9 (80.0-98.0) fL MCH 26.7 L (27.0-32.0) pg MCHC 30.8 L (31.0-37.0) g/dL RDW Std Deviation 52.6 (28.0-62.0) fl RDW Coeff of Radha 17 H (11.0-15.0) % Plt Count 200 (150-400) K/uL MPV 9.40 (7.40-12.00) fL Neut % (Auto) 67.3 (48.0-80.0) % Lymph % (Auto) 19.6 (16.0-40.0) % [place] % (Auto) 8.0 (0.0-15.0) % Eos % (Auto) 4.8 (0.0-7.0) % Baso % (Auto) 0.3 (0.0-1.5) % Neut # (Auto) 4.5 (1.4-5.7) K/uL Lymph # (Auto) 1.3 (0.6-2.4) K/uL [place] # (Auto) 0.5 (0.0-0.8) K/uL Eos # (Auto) 0.3 (0.0-0.7) K/uL Baso # (Auto) 0.0 (0.0-0.1) K/uL Nucleated RBC % 0.0 /100WBC Nucleated RBCs # 0 K/uL INR Sodium 140 (136-145) mmol/L Potassium 3.6 (3.5-5.1) mmol/L Chloride 106 (98-107) mmol/L Carbon Dioxide 25.0 (21.0-32.0) mmol/L BUN 14 (7.0-18.0) mg/dL Creatinine 1.0 (0.6-1.0) mg/dL Est Cr Clr Drug Dosing 51.30 mL/min Estimated GFR (MDRD) 54.5 ml/min Glucose 119 H (74-106) mg/dL Calcium 8.3 L (8.5-10.1) mg/dL SARS-CoV-2 (PCR) NOT DETECTED (NOT DETECT) 04/15/20 Range/Units 06:07 WBC (4.0-11.0) K/uL RBC (4.30-5.90) M/uL Hgb (12.0-16.0) g/dL Hct (36.0-46.0) % MCV (80.0-98.0) fL MCH (27.0-32.0) pg MCHC (31.0-37.0) g/dL RDW Std Deviation (28.0-62.0) fl RDW Coeff of Radha (11.0-15.0) % Plt Count (150-400) K/uL MPV (7.40-12.00) fL Neut % (Auto) (48.0-80.0) % Lymph % (Auto) (16.0-40.0) % [place] % (Auto) (0.0-15.0) % Eos % (Auto) (0.0-7.0) % Baso % (Auto) (0.0-1.5) % Neut # (Auto) (1.4-5.7) K/uL Lymph # (Auto) (0.6-2.4) K/uL [place] # (Auto) (0.0-0.8) K/uL Eos # (Auto) (0.0-0.7) K/uL Baso # (Auto) (0.0-0.1) K/uL Nucleated RBC % /100WBC Nucleated RBCs # K/uL INR 2.57 Sodium (136-145) mmol/L Potassium (3.5-5.1) mmol/L Chloride (98-107) mmol/L Carbon Dioxide (21.0-32.0) mmol/L BUN (7.0-18.0) mg/dL Creatinine (0.6-1.0) mg/dL Est Cr Clr Drug Dosing mL/min Estimated GFR (MDRD) ml/min Glucose (74-106) mg/dL Calcium (8.5-10.1) mg/dL SARS-CoV-2 (PCR) (NOT DETECT) [place] Results Last 24 Hours: Microbiology 04/15/20 12:30 Stool Occult Blood (TYE) - Final Stool / Feces 04/13/20 00:00 Urine Culture - Final Urine, Catheterized Klebsiella Pneumoniae Med Orders - Current: Current Medications Acetaminophen (Tylenol) 650 mg PO Q6H PRN PRN Reason: Pain Hydrocodone Bitart/Acetaminophen (Doyline 325-5 Mg) 1 tab PO TID PRN PRN Reason: Pain Last Admin: 04/14/20 17:11 Dose: 1 tab Documented by: Albuterol/Ipratropium (Duoneb 3.0-0.5 Mg/3 Ml) 3 ml NEB Q4HRRT PRN PRN Reason: Shortness of Breath Allopurinol (Zyloprim) 150 mg PO DAILY [facility] Last Admin: 04/15/20 09:24 Dose: 150 mg Documented by: Gabapentin (Neurontin) 300 mg PO TID [facility] Last Admin: 04/15/20 06:32 Dose: 300 mg Documented by: Ceftriaxone Sodium/Dextrose 1 (gm/ Premix) 50 mls @ 100 mls/hr IV Q24H [facility] Last Admin: 04/15/20 01:45 Dose: 100 mls/hr Documented by: Metoprolol Succinate (Toprol Xl) 100 mg PO DAILY [facility] Last Admin: 04/15/20 09:25 Dose: 100 mg Documented by: Ropinirole HCl (Requip) 3 mg PO TID PRN PRN Reason: restless leg Last Admin: 04/15/20 03:10 Dose: 3 mg Documented by: Sodium Chloride (Saline Flush) 10 ml FLUSH ASDIRECTED PRN PRN Reason: Keep Vein Open Sodium Chloride (Saline Flush) 2.5 ml FLUSH ASDIRECTED PRN PRN Reason: Keep Vein Open Warfarin Sodium (Coumadin Sliding Scale) 0 each PO DAILY@1400 [facility] Last Admin: 04/14/20 15:05 Dose: Not Given Documented by: Discontinued Medications Sodium Chloride (Normal Saline) 500 mls @ 999 mls/hr IV .BOLUS ONE Stop: 04/13/20 00:17 Last Admin: 04/13/20 00:19 Dose: 999 mls/hr Documented by: Ceftriaxone Sodium 1 gm/ (Sodium Chloride) 50 mls @ 200 mls/hr IV ONETIME ONE Stop: 04/13/20 00:48 Last Admin: 04/13/20 01:07 Dose: Not Given Documented by: Ceftriaxone Sodium/Dextrose (Rocephin In Dextrose,Iso-Osm 1 Gm/50 Ml) Confirm Administered Dose 50 mls @ as directed .ROUTE .STK-MED ONE Stop: 04/13/20 00:53 Last Admin: 04/13/20 01:07 Dose: Not Given Documented by: Ceftriaxone Sodium/Dextrose 1 (gm/ Premix) 50 mls @ 100 mls/hr IV ONETIME ONE Stop: 04/13/20 01:58 Last Admin: 04/13/20 01:00 Dose: 100 mls/hr Documented by: Ceftriaxone Sodium/Dextrose 1 (gm/ Premix) 50 mls @ 100 mls/hr IV Q24H [facility] Sodium Chloride (Normal Saline) 1,000 mls @ 125 mls/hr IV Q8H [facility] Stop: 04/13/20 19:44 Last Admin: 04/13/20 13:36 Dose: 125 mls/hr Documented by: Sodium Chloride (Normal Saline) 1,000 mls @ 125 mls/hr IV ONETIME ONE Stop: 04/14/20 05:59 Last Admin: 04/13/20 22:00 Dose: 125 mls/hr Documented by: Potassium Chloride (Klor-Con M20) 40 meq PO ONETIME ONE Stop: 04/14/20 07:49 Last Admin: 04/14/20 09:05 Dose: 40 meq Documented by: Warfarin Sodium (Coumadin) 2.5 mg PO 04/13/20@1400 [facility] Stop: 04/13/20 14:01 Last Admin: 04/13/20 16:08 Dose: 2.5 mg Documented by: Warfarin Sodium (Coumadin) 2.5 mg PO 04/13/20@1535 [facility] Stop: 04/13/20 15:36 Last Admin: 04/13/20 16:08 Dose: Not Given Documented by: Sepsis Event Note - Focused Exam Vital Signs: Vital Signs Temp Pulse Pulse Resp BP BP Pulse Ox 04/15/20 11:59 36.3 C 85 18 111/63 96 04/15/20 09:25 102 H 116/58 L 04/15/20 08:02 37.2 C 102 H 16 116/58 L 95 04/15/20 03:00 37.0 C 95 18 117/68 96 - My Orders Last 24 Hours: My Active Orders 04/16/20 05:00 INR,PT,PROTHROMBIN TIME [COAG] DAILY 04/17/20 05:00 INR,PT,PROTHROMBIN TIME [COAG] DAILY 04/18/20 05:00 INR,PT,PROTHROMBIN TIME [COAG] DAILY
[2020-04-14] MEDS: Warfarin Sliding Scale PO SCH (15:05)
[2020-04-15] MEDS: cefTRIAXone 1 GM in Premix Bag 1 BAG IV SCH (01:45)
[2020-04-15] MEDS: rOPINIRole 1 MG Tab PO PRN (03:10)
[2020-04-15] MEDS: Gabapentin 100 MG Cap PO SCH ×2 (06:32→14:40)
[2020-04-15 06:40] LABS: POTASSIUM,K 3.6 mmol/L (3.5-5.1)
[2020-04-15] MEDS: Allopurinol 100 MG Tab PO SCH (09:24)
[2020-04-15] MEDS: Metoprolol Succinate 100 MG Tab.ER PO SCH (09:25)
--- NOTE | 2020-04-15 11:38 | PCM.DCSUM1 ---
Discharge Summary - Hospital Course Free Text/Narrative:: 74F PMHx Afib on warfarin,lumbar back pain, DJD, CHF on lasix, chronic lymphedema, wheelchair bound at baseline, frequent falls: presenting today after slipping out of her wheelchair. Patient lives alone at home. Typically gets around mostly in wheelchair but does get up to use bathroom, transfer, etc. Lately has been very weak and unable to get up. Fell on 03/30 and was here diagnosed with rib fracture. Has had a few falls out of wheelchair since then with latest fall this morning. She called for lift assist. This evening she feels that she's unable to get up on her own or care for herself. ED course : +UTI Imaging unremarkable Given IV fluids +CTX Hospital Course: Discovered UTI on UA; + of klebsiella pneumoniae : sent home on Ciprofloxacin; pt was able to ambulate with PT at baseline on day of discharge ; concerns about slipping out of chair were discussed with patient; home health with OT ordered; anti-slip covers for the wheelchair will be ordered to prevent falling out of chair; found to be sleeping in chair while leaning forward; concners about etiology of falls Hemoccult negative Advised to follow up with outpatient PCP - Discharge Data Discharge Date: 04/15/20 Discharge Disposition: Home, Self-Care 01 Condition: Fair - Referral to Home Health Primary Care Physician: Jen Penn DO - Patient Summary/Data Consults: Consultations 04/13/20 08:17 Consult to Physical Therapy [PT Evaluation and Treatment] [CONS] Routine - Patient Instructions Diet: Heart Healthy Diet Notify Provider of: Fever, Increased Pain, Nausea and/or Vomiting - Discharge Plan *PRESCRIPTION DRUG MONITORING PROGRAM REVIEWED*: No *COPY OF PRESCRIPTION DRUG MONITORING REPORT IN PATIENT FERNANDEZ: No Prescriptions/Med Rec: Levofloxacin [Levaquin] 500 mg PO DAILY 5 Days #5 tablet Home Medications: Home Meds Bumetanide [Bumex] 2 mg PO TID 04/12/19 [History] Gabapentin [Neurontin] 300 mg PO TID 04/12/19 [History] Latanoprost/Pf [Latanoprost 0.005% Eye Drop] 1 drop EYERT DAILY 04/12/19 [History] Metoprolol Succinate 100 mg PO DAILY 04/12/19 [History] allopurinoL [Zyloprim] 150 mg PO DAILY 04/12/19 [History] Warfarin Sodium [Coumadin] 6 mg PO TUTHSA 10/19/19 [History] Warfarin Sodium [Coumadin] 7 mg PO SUMOWEFR 10/19/19 [History] metOLazone [Metolazone] 2.5 mg PO MOWEFR 10/19/19 [History] rOPINIRole [Requip] 3 mg PO TID PRN 10/19/19 [History] Albuterol [Proair HFA] 2 puff INH ASDIRECTED PRN 01/18/20 [History] Cyclobenzaprine [Flexeril] 10 mg PO TID PRN 01/18/20 [History] Ferrous Sulfate [High Potency Iron] 65 mg PO DAILY 01/18/20 [History] Diclofenac Sodium [Diclo Gel] 1 applic TOP QID PRN 03/30/20 [History] Potassium Citrate [Potassium Citrate ER] 10 meq PO DAILY 03/30/20 [History] traMADol HCl [Tramadol HCl] 50 mg PO Q12HR PRN 03/30/20 [History] Acetaminophen [Tylenol] 650 mg PO Q4H PRN tablet 03/31/20 [Rx] Hydrocodone/Acetaminophen [Hydrocodone-Acetamin 5-325 mg] 1 each PO TID PRN 3 Days #9 tablet 03/31/20 [Rx] Acetaminophen [Tylenol] 650 mg PO Q6H PRN tablet 04/15/20 [Rx] Levofloxacin [Levaquin] 500 mg PO DAILY 5 Days #5 tablet 04/15/20 [Rx] Patient Handouts: Urinary Tract Infection, Adult, Levofloxacin tablets Referrals: Jen Penn DO [Primary Care Provider] - 04/26/20 8:00 am - Discharge Summary/Plan Comment DC Time >30 min.: No - Patient Data Vitals - Most Recent: Last Vital Signs Temp 99.0 F 04/15/20 08:02 Pulse 102 H 04/15/20 09:25 Resp 16 04/15/20 08:02 BP 116/58 L 04/15/20 09:25 Pulse Ox 95 04/15/20 08:02 Weight - Most Recent: 117.662 kg I&O - Last 24 hours: Intake & Output 04/14/20 04/15/20 04/15/20 22:59 06:59 14:59 Intake Total 500 360 Output Total 350 601 Balance 150 -241 Lab Results - Last 24 hrs: Laboratory Results - last 24 hr 04/13/20 04/15/20 04/15/20 Range/Units 00:13 06:07 06:07 WBC 6.72 (4.0-11.0) K/uL RBC 3.29 L (4.30-5.90) M/uL Hgb 8.8 L (12.0-16.0) g/dL Hct 28.6 L (36.0-46.0) % MCV 86.9 (80.0-98.0) fL MCH 26.7 L (27.0-32.0) pg MCHC 30.8 L (31.0-37.0) g/dL RDW Std Deviation 52.6 (28.0-62.0) fl RDW Coeff of Radha 17 H (11.0-15.0) % Plt Count 200 (150-400) K/uL MPV 9.40 (7.40-12.00) fL Neut % (Auto) 67.3 (48.0-80.0) % Lymph % (Auto) 19.6 (16.0-40.0) % [place] % (Auto) 8.0 (0.0-15.0) % Eos % (Auto) 4.8 (0.0-7.0) % Baso % (Auto) 0.3 (0.0-1.5) % Neut # (Auto) 4.5 (1.4-5.7) K/uL Lymph # (Auto) 1.3 (0.6-2.4) K/uL [place] # (Auto) 0.5 (0.0-0.8) K/uL Eos # (Auto) 0.3 (0.0-0.7) K/uL Baso # (Auto) 0.0 (0.0-0.1) K/uL Nucleated RBC % 0.0 /100WBC Nucleated RBCs # 0 K/uL INR Sodium 140 (136-145) mmol/L Potassium 3.6 (3.5-5.1) mmol/L Chloride 106 (98-107) mmol/L Carbon Dioxide 25.0 (21.0-32.0) mmol/L BUN 14 (7.0-18.0) mg/dL Creatinine 1.0 (0.6-1.0) mg/dL Est Cr Clr Drug Dosing 51.30 mL/min Estimated GFR (MDRD) 54.5 ml/min Glucose 119 H (74-106) mg/dL Calcium 8.3 L (8.5-10.1) mg/dL SARS-CoV-2 (PCR) NOT DETECTED (NOT DETECT) 04/15/20 Range/Units 06:07 WBC (4.0-11.0) K/uL RBC (4.30-5.90) M/uL Hgb (12.0-16.0) g/dL Hct (36.0-46.0) % MCV (80.0-98.0) fL MCH (27.0-32.0) pg MCHC (31.0-37.0) g/dL RDW Std Deviation (28.0-62.0) fl RDW Coeff of Radha (11.0-15.0) % Plt Count (150-400) K/uL MPV (7.40-12.00) fL Neut % (Auto) (48.0-80.0) % Lymph % (Auto) (16.0-40.0) % [place] % (Auto) (0.0-15.0) % Eos % (Auto) (0.0-7.0) % Baso % (Auto) (0.0-1.5) % Neut # (Auto) (1.4-5.7) K/uL Lymph # (Auto) (0.6-2.4) K/uL [place] # (Auto) (0.0-0.8) K/uL Eos # (Auto) (0.0-0.7) K/uL Baso # (Auto) (0.0-0.1) K/uL Nucleated RBC % /100WBC Nucleated RBCs # K/uL INR 2.57 Sodium (136-145) mmol/L Potassium (3.5-5.1) mmol/L Chloride (98-107) mmol/L Carbon Dioxide (21.0-32.0) mmol/L BUN (7.0-18.0) mg/dL Creatinine (0.6-1.0) mg/dL Est Cr Clr Drug Dosing mL/min Estimated GFR (MDRD) ml/min Glucose (74-106) mg/dL Calcium (8.5-10.1) mg/dL SARS-CoV-2 (PCR) (NOT DETECT) JEFFREY Results - Last 24 hrs: Microbiology 04/13/20 00:00 Urine Culture - Final Urine, Catheterized Klebsiella Pneumoniae Med Orders - Current: Current Medications Acetaminophen (Tylenol) 650 mg PO Q6H PRN PRN Reason: Pain Hydrocodone Bitart/Acetaminophen ([place] 325-5 Mg) 1 tab PO TID PRN PRN Reason: Pain Last Admin: 04/14/20 17:11 Dose: 1 tab Documented by: Albuterol/Ipratropium (Duoneb 3.0-0.5 Mg/3 Ml) 3 ml NEB Q4HRRT PRN PRN Reason: Shortness of Breath Allopurinol (Zyloprim) 150 mg PO DAILY [facility] Last Admin: 04/15/20 09:24 Dose: 150 mg Documented by: Gabapentin (Neurontin) 300 mg PO TID [facility] Last Admin: 04/15/20 06:32 Dose: 300 mg Documented by: Ceftriaxone Sodium/Dextrose 1 (gm/ Premix) 50 mls @ 100 mls/hr IV Q24H [facility] Last Admin: 04/15/20 01:45 Dose: 100 mls/hr Documented by: Metoprolol Succinate (Toprol Xl) 100 mg PO DAILY [facility] Last Admin: 04/15/20 09:25 Dose: 100 mg Documented by: Ropinirole HCl (Requip) 3 mg PO TID PRN PRN Reason: restless leg Last Admin: 04/15/20 03:10 Dose: 3 mg Documented by: Sodium Chloride (Saline Flush) 10 ml FLUSH ASDIRECTED PRN PRN Reason: Keep Vein Open Sodium Chloride (Saline Flush) 2.5 ml FLUSH ASDIRECTED PRN PRN Reason: Keep Vein Open Warfarin Sodium (Coumadin Sliding Scale) 0 each PO DAILY@1400 [facility] Last Admin: 04/14/20 15:05 Dose: Not Given Documented by: Discontinued Medications Sodium Chloride (Normal Saline) 500 mls @ 999 mls/hr IV .BOLUS ONE Stop: 04/13/20 00:17 Last Admin: 04/13/20 00:19 Dose: 999 mls/hr Documented by: Ceftriaxone Sodium 1 gm/ (Sodium Chloride) 50 mls @ 200 mls/hr IV ONETIME ONE Stop: 04/13/20 00:48 Last Admin: 04/13/20 01:07 Dose: Not Given Documented by: Ceftriaxone Sodium/Dextrose (Rocephin In Dextrose,Iso-Osm 1 Gm/50 Ml) Confirm Administered Dose 50 mls @ as directed .ROUTE .STK-MED ONE Stop: 04/13/20 00:53 Last Admin: 04/13/20 01:07 Dose: Not Given Documented by: Ceftriaxone Sodium/Dextrose 1 (gm/ Premix) 50 mls @ 100 mls/hr IV ONETIME ONE Stop: 04/13/20 01:58 Last Admin: 04/13/20 01:00 Dose: 100 mls/hr Documented by: Ceftriaxone Sodium/Dextrose 1 (gm/ Premix) 50 mls @ 100 mls/hr IV Q24H [facility] Sodium Chloride (Normal Saline) 1,000 mls @ 125 mls/hr IV Q8H [facility] Stop: 04/13/20 19:44 Last Admin: 04/13/20 13:36 Dose: 125 mls/hr Documented by: Sodium Chloride (Normal Saline) 1,000 mls @ 125 mls/hr IV ONETIME ONE Stop: 04/14/20 05:59 Last Admin: 04/13/20 22:00 Dose: 125 mls/hr Documented by: Potassium Chloride (Klor-Con M20) 40 meq PO ONETIME ONE Stop: 04/14/20 07:49 Last Admin: 04/14/20 09:05 Dose: 40 meq Documented by: Warfarin Sodium (Coumadin) 2.5 mg PO 04/13/20@1400 [facility] Stop: 04/13/20 14:01 Last Admin: 04/13/20 16:08 Dose: 2.5 mg Documented by: Warfarin Sodium (Coumadin) 2.5 mg PO 04/13/20@1535 [facility] Stop: 04/13/20 15:36 Last Admin: 04/13/20 16:08 Dose: Not Given Documented by:
[2020-04-15] MEDS ORDERED: Warfarin 2 MG Tab PO ONE (14:15)
[2020-04-15] MEDS: Warfarin Sliding Scale PO SCH (14:40)
== END 2020-04-15 17:54 | disposition home or self-care (01) ==
LOC: MW.ED 23:16 → MW.MS 04-13 03:08
PROVIDERS: ADMIT Student in an Organized Health Care Education/Training Program; ATTEND Student in an Organized Health Care Education/Training Program
DX: N30.00 Acute cystitis without hematuria (principal); I50.9 Heart failure, unspecified; E66.9 Obesity, unspecified; R29.6 Repeated falls; D64.9 Anemia, unspecified; I89.0 Lymphedema, not elsewhere classified; B96.1 Klebsiella pneumoniae [K. pneumoniae] as the cause of diseases classified elsewhere; Z20.828 Contact with and (suspected) exposure to other viral communicable diseases; M47.816 Spondylosis without myelopathy or radiculopathy, lumbar region; N17.9 Acute kidney failure, unspecified; I48.91 Unspecified atrial fibrillation; Z79.899 Other long term (current) drug therapy; Z68.41 Body mass index [BMI] 40.0-44.9, adult; Z88.0 Allergy status to penicillin; Z88.1 Allergy status to other antibiotic agents; Z88.7 Allergy status to serum and vaccine; Z88.8 Allergy status to other drugs, medicaments and biological substances; Z79.01 Long term (current) use of anticoagulants; W05.0XXA Fall from non-moving wheelchair, initial encounter; Y92.009 Unspecified place in unspecified non-institutional (private) residence as the place of occurrence of the external cause
CPT/HCPCS: 36415; 51702; 70450; 71045; 72125; 72170; 80048; 80053; 81001; 82272; 83605; 83735; 83880; 84484; 85025; 85610; 85730; 87086; 87088; 87186; 93005; 96365; 97161; 97530; 99285; A9270; J0696; J7030; U0002; 96361

== ENCOUNTER 2020-04-23 19:27 | Inpatient (IN) | payer MEDICARE, BC, OTHER ==
--- NOTE | 2020-04-23 19:38 | EDM.PDOC ---
ED HPI GENERAL MEDICAL PROBLEM - General Chief Complaint: Neuro Symptoms/Deficits Stated Complaint: CHEST PAIN Time Seen by Provider: 04/23/20 19:32 - History of Present Illness INITIAL COMMENTS - FREE TEXT/NARRATIVE: History of present illness: [] The patient was too weak to get up. She denies syncope. She has residual chest pain from her prior rib fracture. She fell 03/30/2020 and was evaluated for rib fracture. She was too weak to get up on 04/12/2020 and was admitted for 3 nights. She says rehab and physical therapy evaluation did not happen then and she went home by herself but has her daughter in and out at times. She was working for 5 hours this morning to try to get up off the floor and she called EMS and they put her back in her wheelchair. She decided today that she is no longer able to get up and get to the bathroom and take care of her self. She is wheelchair-bound but usually ambulates to the bathroom. She says she has been evaluated 3 or 4 times for weakness and inability to take care of her self at home during the last couple of months. Says she has been fairly weak since she broke her hip in 2018. At that time her daughter moved here and takes care of her. She has had several visits in the last month but says that she is not much worse than she has been but her daughter is been in residential for a month so she is by herself. Review of systems: As per history of present illness and below otherwise all systems reviewed and negative. Past medical history: As per history of present illness and as reviewed below otherwise noncontributory. Admission 12 April for nights for weakness and inability to get up safely was reviewed. Surgical history: As per history of present illness and as reviewed below otherwise noncontributory. Social history: No reported history of drug or alcohol abuse. Family history: As per history of present illness and as reviewed below otherwise noncontributory. Physical exam: Constitutional - well developed, well-nourished and in no acute distress HEENT - normocephalic, no evidence of trauma - external nose and mouth normal - no mass in neck and no JVD - mucosae moist EYES - full EOM, PERRL, no icterus - no evidence of inflammation, injection, or drainage Respiratory - no respiratory distress, equal bilateral expansion, lungs clear to auscultation and no abnormal lung sounds Cardiovascular - Regular Rhythm with S1 and S2 appreciated and no murmur, gallop or rub. GI - abdomen soft without distension or organomegaly - normal bowel sounds - no guard or rebound Musculoskeletal no gross deformity of long bones or joints - no tenderness, swelling or edema Neurologic - Alert and oriented times four - CN II-XII grossly intact - motor sensory and coordination symmetrically normal Psychiatric - appropriate mood and affect with normal thought content Hematologic - No petechiae or purpura - mucosa appropriate color and sclera not pale - normal nail bed color and refill Integument - no rash or evidence of trauma - normal turgor Diagnostics: [] Therapeutics: [] Impression: [] Plan: [] Definitive disposition and diagnosis as appropriate pending reevaluation and review of above. - Related Data Allergies Allergy/AdvReac Type Severity Reaction Status Date / Time amoxicillin Allergy Rash Verified 04/23/20 19:42 cephalexin monohydrate Allergy Rash Verified 04/23/20 19:42 [From Keflex] Penicillins Allergy Rash Verified 04/23/20 19:42 rofecoxib [From Vioxx] Allergy Rash Verified 04/23/20 19:42 tetanus toxoid, adsorbed Allergy Rash Verified 04/23/20 19:42 valacyclovir HCl Allergy Rash Verified 04/23/20 19:42 [From Valtrex] wool Allergy Rash Verified 04/23/20 19:42 ferlacit Allergy Severe Hypotension Uncoded 04/23/20 19:42 Avalox Allergy Rash Uncoded 04/23/20 19:42 Bextra Allergy Rash Uncoded 04/23/20 19:42 celebrex Allergy Rash Uncoded 04/23/20 19:42 macrobid Allergy Rash Uncoded 04/23/20 19:42 plastic tape Allergy Rash Uncoded 04/23/20 19:42 Zofran Allergy Rash Uncoded 04/23/20 19:42 Home Meds: Home Meds Bumetanide [Bumex] 2 mg PO TID 04/12/19 [History] Gabapentin [Neurontin] 300 mg PO TID 04/12/19 [History] Latanoprost/Pf [Latanoprost 0.005% Eye Drop] 1 drop EYERT DAILY 04/12/19 [History] Metoprolol Succinate 100 mg PO DAILY 04/12/19 [History] allopurinoL [Zyloprim] 150 mg PO DAILY 04/12/19 [History] Warfarin Sodium [Coumadin] 6 mg PO TUTHSA 10/19/19 [History] Warfarin Sodium [Coumadin] 7 mg PO SUMOWEFR 10/19/19 [History] metOLazone [Metolazone] 2.5 mg PO MOWEFR 10/19/19 [History] rOPINIRole [Requip] 3 mg PO TID PRN 10/19/19 [History] Albuterol [Proair HFA] 2 puff INH ASDIRECTED PRN 01/18/20 [History] Cyclobenzaprine [Flexeril] 10 mg PO TID PRN 01/18/20 [History] Ferrous Sulfate [High Potency Iron] 65 mg PO DAILY 01/18/20 [History] Diclofenac Sodium [Diclo Gel] 1 applic TOP QID PRN 03/30/20 [History] Potassium Citrate [Potassium Citrate ER] 10 meq PO DAILY 03/30/20 [History] traMADol HCl [Tramadol HCl] 50 mg PO Q12HR PRN 03/30/20 [History] Acetaminophen [Tylenol] 650 mg PO Q4H PRN tablet 03/31/20 [Rx] Hydrocodone/Acetaminophen [Hydrocodone-Acetamin 5-325 mg] 1 each PO TID PRN 3 Days #9 tablet 03/31/20 [Rx] Acetaminophen [Tylenol] 650 mg PO Q6H PRN tablet 04/15/20 [Rx] Levofloxacin [Levaquin] 500 mg PO DAILY 5 Days #5 tablet 04/15/20 [Rx] Past Medical History HEENT History: Reports: Cataract, Impaired Vision 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 Cardiovascular History: Reports: Afib, Angina, Heart Failure Respiratory History: Reports: Bronchitis, Recurrent, SOB Genitourinary History: Reports: Pyelonephritis, Urinary Incontinence, UTI, Recurrent TIRE CURER History: Reports: Musculoskeletal History: Reports: Fibromyalgia, Osteoarthritis, Osteoporosis, Other (See Below) Other Musculoskeletal History: MS more than 50 years Neurological History: Reports: MS Psychiatric History: Reports: None Endocrine/Metabolic History: Reports: Obesity/BMI 30+ Hematologic History: Reports: Anemia Immunologic History: Reports: None Oncologic (Cancer) History: Reports: Malignant Melanoma Dermatologic History: Reports: Other (See Below) Other Dermatologic History: melanoma to top of head - Infectious Disease History Infectious Disease History: Reports: Chicken Pox, Measles, Mumps - Past Surgical History HEENT Surgical History: Reports: Cataract Surgery, Tonsillectomy Cardiovascular Surgical History: Reports: Other (See Below) Other Cardiovascular Surgeries/Procedures: angiogram without stents Respiratory Surgical History: Reports: Other (See Below) Other Respiratory Surgeries/Procedures: bronchoscopy February 2019 GI Surgical History: Reports: Appendectomy, Bariatric Procedure, Cholecystectomy, Colonoscopy, Other (See Below) Other GI Surgeries/Procedures: gastric bypass surgery Female Surgical History: Reports: Hysterectomy, Other (See Below) Other Female Surgeries/Procedures: bladder suspension Neurological Surgical History: Reports: None Musculoskeletal Surgical History: Reports: Knee Replacement, Shoulder Replacement, Other (See Below) Other Musculoskeletal Surgeries/Procedures:: left femur surgery Dermatological Surgical History: Reports: None Social & Family History - Family History Family Medical History: Noncontributory - Caffeine Use Caffeine Use: Reports: Coffee, Tea ED ROS GENERAL - Review of Systems Review Of Systems: Comprehensive ROS is negative, except as noted in HPI. ED EXAM, GENERAL - Physical Exam Exam: See Below Free Text/Narrative:: My physical exam as in the HPI EKG INTERPRETATION EKG Date: 04/23/20 Rhythm: A-Fib P-Wave: Absent QRS: Other (There is no significant R wave throughout the precordium. There is virtually no significant R wave in the inferior leads this is compared to prior no change) Comparison: No Change EKG Interpretation Comments: Impression is no acute injury Course - Vital Signs Text/Narrative:: Patient was dehydrated and unable to void in the emergency department. Case was discussed with Dr. Gracie Haro. Patient has elevated CPK and possible rhabdomyolysis. The patient was admitted to observation status pending social service and rehab evaluation for home care or placement. Last Recorded V/S: Last Vital Signs Temp 96.6 F L 04/23/20 19:36 Pulse 106 H 04/23/20 19:36 Resp 18 04/23/20 19:36 BP 134/74 04/23/20 19:36 Pulse Ox 95 04/23/20 19:36 - Orders/Labs/Meds Orders: Active Orders 24 hr Category Date Time Status Admission Status [Patient Status] [ADT] Stat ADT 04/23/20 20:39 Ordered EKG Documentation Completion [RC] AM Care 04/23/20 19:43 Active UA RFX JEFFREY AND CULT IF INDIC [URIN] Stat Lab 04/23/20 19:45 Ordered Sodium Chloride 0.9% [Saline Flush] Med 04/23/20 19:43 Active 10 ml FLUSH ASDIRECTED PRN Sodium Chloride 0.9% [Saline Flush] Med 04/23/20 19:43 Active 2.5 ml FLUSH ASDIRECTED PRN Saline Lock Insert [OM.PC] Stat Oth 04/23/20 19:43 Ordered Medication Orders Sodium Chloride (Saline Flush) 10 ml FLUSH ASDIRECTED PRN PRN Reason: Keep Vein Open Sodium Chloride (Saline Flush) 2.5 ml FLUSH ASDIRECTED PRN PRN Reason: Keep Vein Open Labs: Laboratory Tests 04/23/20 04/23/20 04/23/20 Range/Units 19:30 19:30 19:30 WBC 11.21 H (4.0-11.0) K/uL RBC 3.49 L (4.30-5.90) M/uL Hgb 9.4 L (12.0-16.0) g/dL Hct 29.6 L (36.0-46.0) % MCV 84.8 (80.0-98.0) fL MCH 26.9 L (27.0-32.0) pg MCHC 31.8 (31.0-37.0) g/dL RDW Std Deviation 49.7 (28.0-62.0) fl RDW Coeff of Radha 16 H (11.0-15.0) % Plt Count 231 (150-400) K/uL MPV 9.80 (7.40-12.00) fL Neut % (Auto) 75.6 (48.0-80.0) % Lymph % (Auto) 10.7 L (16.0-40.0) % Day % (Auto) 12.9 (0.0-15.0) % Eos % (Auto) 0.5 (0.0-7.0) % Baso % (Auto) 0.3 (0.0-1.5) % Neut # (Auto) 8.5 H (1.4-5.7) K/uL Lymph # (Auto) 1.2 (0.6-2.4) K/uL Day # (Auto) 1.5 H (0.0-0.8) K/uL Eos # (Auto) 0.1 (0.0-0.7) K/uL Baso # (Auto) 0.0 (0.0-0.1) K/uL Nucleated RBC % 0.0 /100WBC Nucleated RBCs # 0 K/uL INR 2.17 Sodium 136 (136-145) mmol/L Potassium 3.9 (3.5-5.1) mmol/L Chloride 102 (98-107) mmol/L Carbon Dioxide 21.2 (21.0-32.0) mmol/L BUN 12 (7.0-18.0) mg/dL Creatinine 1.2 H (0.6-1.0) mg/dL Est Cr Clr Drug Dosing 42.75 mL/min Estimated GFR (MDRD) 44.2 ml/min Glucose 120 H (74-106) mg/dL Calcium 9.0 (8.5-10.1) mg/dL Magnesium 1.9 (1.8-2.4) mg/dL Total Bilirubin 1.0 (0.2-1.0) mg/dL AST 38 H (15-37) IU/L ALT 25 (14-63) IU/L Alkaline Phosphatase 140 H (46-116) U/L Creatine Kinase (26-308) U/L Troponin I < 0.050 (0.000-0.056) ng/mL Total Protein 7.5 (6.4-8.2) g/dL Albumin 3.3 L (3.4-5.0) g/dL Globulin 4.2 H (2.6-4.0) g/dL Albumin/Globulin Ratio 0.8 L (0.9-1.6) 04/23/20 Range/Units 19:30 WBC (4.0-11.0) K/uL RBC (4.30-5.90) M/uL Hgb (12.0-16.0) g/dL Hct (36.0-46.0) % MCV (80.0-98.0) fL MCH (27.0-32.0) pg MCHC (31.0-37.0) g/dL RDW Std Deviation (28.0-62.0) fl RDW Coeff of Radha (11.0-15.0) % Plt Count (150-400) K/uL MPV (7.40-12.00) fL Neut % (Auto) (48.0-80.0) % Lymph % (Auto) (16.0-40.0) % Day % (Auto) (0.0-15.0) % Eos % (Auto) (0.0-7.0) % Baso % (Auto) (0.0-1.5) % Neut # (Auto) (1.4-5.7) K/uL Lymph # (Auto) (0.6-2.4) K/uL Day # (Auto) (0.0-0.8) K/uL Eos # (Auto) (0.0-0.7) K/uL Baso # (Auto) (0.0-0.1) K/uL Nucleated RBC % /100WBC Nucleated RBCs # K/uL INR Sodium (136-145) mmol/L Potassium (3.5-5.1) mmol/L Chloride (98-107) mmol/L Carbon Dioxide (21.0-32.0) mmol/L BUN (7.0-18.0) mg/dL Creatinine (0.6-1.0) mg/dL Est Cr Clr Drug Dosing mL/min Estimated GFR (MDRD) ml/min Glucose (74-106) mg/dL Calcium (8.5-10.1) mg/dL Magnesium (1.8-2.4) mg/dL Total Bilirubin (0.2-1.0) mg/dL AST (15-37) IU/L ALT (14-63) IU/L Alkaline Phosphatase (46-116) U/L Creatine Kinase 518 H (26-308) U/L Troponin I (0.000-0.056) ng/mL Total Protein (6.4-8.2) g/dL Albumin (3.4-5.0) g/dL Globulin (2.6-4.0) g/dL Albumin/Globulin Ratio (0.9-1.6) Meds: Medications Generic Name Dose Route Start Last Admin Trade Name Freq PRN Reason Stop Dose Admin Sodium Chloride 10 ml 04/23/20 19:43 Saline Flush FLUSH ASDIRECTED PRN Keep Vein Open Sodium Chloride 2.5 ml 04/23/20 19:43 Saline Flush FLUSH ASDIRECTED PRN Keep Vein Open Departure - Departure Time of Disposition: 20:42 Disposition: Refer to Observation Condition: Good Clinical Impression: Weakness, Dehydration, Rhabdomyolysis, Failure to thrive - Discharge Information [facility] - Forms: ED Department Discharge Sepsis Event Note (ED) - Focused Exam Vital Signs: Vital Signs Temp Pulse Resp BP Pulse Ox 04/23/20 19:36 96.6 F L 106 H 18 134/74 95 - My Orders Last 24 Hours: My Active Orders 04/23/20 19:43 EKG Documentation Completion [RC] AM Sodium Chloride 0.9% [Saline Flush] 10 ml FLUSH ASDIRECTED PRN Sodium Chloride 0.9% [Saline Flush] 2.5 ml FLUSH ASDIRECTED PRN Saline Lock Insert [OM.PC] Stat 04/23/20 19:45 UA RFX JEFFREY AND CULT IF INDIC [URIN] Stat 04/23/20 20:39 Admission Status [Patient Status] [ADT] Stat - Assessment/Plan Last 24 Hours: My Active Orders 04/23/20 19:43 EKG Documentation Completion [RC] AM Sodium Chloride 0.9% [Saline Flush] 10 ml FLUSH ASDIRECTED PRN Sodium Chloride 0.9% [Saline Flush] 2.5 ml FLUSH ASDIRECTED PRN Saline Lock Insert [OM.PC] Stat 04/23/20 19:45 UA RFX JEFFREY AND CULT IF INDIC [URIN] Stat 04/23/20 20:39 Admission Status [Patient Status] [ADT] Stat
[2020-04-23] MEDS ORDERED: Sodium Chloride 0.9% 2.5 ML Syringe FLUSH PRN (19:43)
[2020-04-23] MEDS ORDERED: Sodium Chloride 0.9% 10 ML Syringe FLUSH PRN (19:43)
[2020-04-23 20:01] LABS: BLOOD UREA NITROGEN,BUN 12 mg/dL (7.0-18.0); CARBON DIOXIDE,CO2 21.2 mmol/L (21.0-32.0); CHLORIDE,CL 102 mmol/L (98-107); GLUCOSE RANDOM 120 mg/dL (74-106); POTASSIUM,K 3.9 mmol/L (3.5-5.1); SODIUM,NA 136 mmol/L (136-145)
--- NOTE | 2020-04-23 20:14 | CR ---
Chest: Frontal view of the chest was obtained. Comparison: Previous chest CT of 03/30/20. Findings: Heart felt to be slightly enlarged. Tortuous thoracic aorta is noted. Mild increased density is seen within the upper right lung. Lungs otherwise are clear. Surgical clips are seen within the left upper abdomen. Bilateral shoulder prosthesis are noted. Impression: 1. Slight increased density within the right upper chest. This is either due to atelectasis or small area of pneumonia. 2. Slight cardiomegaly. 3. Other findings as noted above which are nonacute. Diagnostic code #3 This report was dictated in MDT
--- NOTE | 2020-04-23 22:14 | PCM.PRNOTE ---
- Free Text/Narrative Note: Anes Note I was called to ER to provide IV access for this patient. I was not able to place an IV in the left or right arm after 6 attempts. Time with patient [id number] Augie Peoples [employer]
[2020-04-23] MEDS ORDERED: Acetaminophen 325 MG Tab PO PRN (22:54)
[2020-04-23] MEDS ORDERED: traMADol 50 MG Tab PO PRN (22:54)
[2020-04-23] MEDS ORDERED: Warfarin Sliding Scale PO SCH (23:00)
--- NOTE | 2020-04-23 23:00 | PCM.HP.2 ---
H&P History of Present Illness - General Date of Service: 04/23/20 Admit Problem/Dx: Admission Diagnosis/Problem Admission Diagnosis/Problem Rhabdomyolysis - History of Present Illness Initial Comments - Free Text/Narative: 74 yo female with pmh of CHF, a.fib who was hospitalized twice this month for falls with rib fracture and recurrent UTI. She presented to the ED after slipping out of her wheelchair. She was unable to get up. Patient reports generalized weakness. She denies any fevers, shortness of breath or chest pain. - Related Data Allergies/Adverse Reactions: Allergies Allergy/AdvReac Type Severity Reaction Status Date / Time amoxicillin Allergy Rash Verified 04/24/20 01:30 cephalexin monohydrate Allergy Rash Verified 04/24/20 01:30 [From Keflex] Penicillins Allergy Rash Verified 04/24/20 01:30 rofecoxib [From Vioxx] Allergy Rash Verified 04/24/20 01:30 tetanus toxoid, adsorbed Allergy Rash Verified 04/24/20 01:30 valacyclovir HCl Allergy Rash Verified 04/24/20 01:30 [From Valtrex] wool Allergy Rash Verified 04/24/20 01:30 ferlacit Allergy Severe Hypotension Uncoded 04/24/20 01:30 Avalox Allergy Rash Uncoded 04/24/20 01:30 Bextra Allergy Rash Uncoded 04/24/20 01:30 celebrex Allergy Rash Uncoded 04/24/20 01:30 macrobid Allergy Rash Uncoded 04/24/20 01:30 plastic tape Allergy Rash Uncoded 04/24/20 01:30 Zofran Allergy Rash Uncoded 04/24/20 01:30 Home Medications: Home Meds Bumetanide [Bumex] 2 mg PO TID 04/12/19 [History] Gabapentin [Neurontin] 300 mg PO TID 04/12/19 [History] Latanoprost/Pf [Latanoprost 0.005% Eye Drop] 1 drop EYERT BEDTIME 04/12/19 [History] Metoprolol Succinate 100 mg PO DAILY 04/12/19 [History] allopurinoL [Zyloprim] 150 mg PO DAILY 04/12/19 [History] Warfarin Sodium [Coumadin] 6 mg PO TUTHSA 10/19/19 [History] Warfarin Sodium [Coumadin] 7 mg PO SUMOWEFR 10/19/19 [History] metOLazone [Metolazone] 2.5 mg PO MOWEFR 10/19/19 [History] rOPINIRole [Requip] 3 mg PO TID PRN 10/19/19 [History] Albuterol [Proair HFA] 2 puff INH Q4H PRN 01/18/20 [History] Cyclobenzaprine [Flexeril] 10 mg PO TID PRN 01/18/20 [History] Ferrous Sulfate [High Potency Iron] 325 mg PO DAILY 01/18/20 [History] Diclofenac Sodium [Diclo Gel] 1 applic TOP QID PRN 03/30/20 [History] Potassium Citrate [Potassium Citrate ER] 10 meq PO DAILY 03/30/20 [History] traMADol HCl [Tramadol HCl] 50 mg PO Q12HR PRN 03/30/20 [History] Acetaminophen [Tylenol] 650 mg PO Q4H PRN tablet 03/31/20 [Rx] Hydrocodone/Acetaminophen [Hydrocodone-Acetamin 5-325 mg] 1 each PO TID PRN 3 Days #9 tablet 03/31/20 [Rx] Acetaminophen [Tylenol] 650 mg PO Q6H PRN tablet 04/15/20 [Rx] Past Medical History HEENT History: Reports: Cataract, Impaired Vision 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 Cardiovascular History: Reports: Afib, Angina, Heart Failure Respiratory History: Reports: Bronchitis, Recurrent, SOB Genitourinary History: Reports: Pyelonephritis, Urinary Incontinence, UTI, Recurrent [employer] COOKING History: Reports: Musculoskeletal History: Reports: Fibromyalgia, Osteoarthritis, Osteoporosis, Other (See Below) Other Musculoskeletal History: MS more than 50 years Neurological History: Reports: MS Psychiatric History: Reports: None Endocrine/Metabolic History: Reports: Obesity/BMI 30+ Hematologic History: Reports: Anemia Immunologic History: Reports: None Oncologic (Cancer) History: Reports: Malignant Melanoma Dermatologic History: Reports: Other (See Below) Other Dermatologic History: melanoma to top of head - Infectious Disease History Infectious Disease History: Reports: Chicken Pox, Measles, Mumps - Past Surgical History HEENT Surgical History: Reports: Cataract Surgery, Tonsillectomy Cardiovascular Surgical History: Reports: Other (See Below) Other Cardiovascular Surgeries/Procedures: angiogram without stents Respiratory Surgical History: Reports: Other (See Below) Other Respiratory Surgeries/Procedures: bronchoscopy February 2019 GI Surgical History: Reports: Appendectomy, Bariatric Procedure, Cholecystectomy, Colonoscopy, Other (See Below) Other GI Surgeries/Procedures: gastric bypass surgery Female Surgical History: Reports: Hysterectomy, Other (See Below) Other Female Surgeries/Procedures: bladder suspension Neurological Surgical History: Reports: None Musculoskeletal Surgical History: Reports: Knee Replacement, Shoulder Replacement, Other (See Below) Other Musculoskeletal Surgeries/Procedures:: left femur surgery Dermatological Surgical History: Reports: None Social & Family History - Family History Family Medical History: Noncontributory - Tobacco Use Smoking Status *Q: Never Smoker Second Hand Smoke Exposure: No - Caffeine Use Caffeine Use: Reports: Coffee, Tea - Recreational Drug Use Recreational Drug Use: No H&P Review of Systems - Review of Systems: Review Of Systems: Comprehensive ROS is negative, except as noted in HPI. Exam - Exam Exam: See Below - Vital Signs Vital Signs: Last Vital Signs Temp 35.9 C L 04/23/20 19:36 Pulse 110 H 04/23/20 20:30 Resp 20 04/23/20 20:30 BP 143/80 H 04/23/20 20:30 Pulse Ox 98 04/23/20 20:30 Weight: 128.82 kg - Exam General: Alert, Oriented HEENT: Mucosa Moist & Mcloud Neck: Supple Lungs: Clear to Auscultation, Normal Respiratory Effort Cardiovascular: Regular Rate, Regular Rhythm GI/Abdominal Exam: Soft, Non-Tender Extremities: Non-Tender, No Pedal Edema Skin: Warm, Dry, Intact Neurological: Cranial Nerves Intact. No: Focal Deficit - Patient Data Lab Results Last 24 hrs: Laboratory Results - last 24 hr 04/23/20 04/23/20 04/23/20 Range/Units 19:30 19:30 19:30 WBC 11.21 H (4.0-11.0) K/uL RBC 3.49 L (4.30-5.90) M/uL Hgb 9.4 L (12.0-16.0) g/dL Hct 29.6 L (36.0-46.0) % MCV 84.8 (80.0-98.0) fL MCH 26.9 L (27.0-32.0) pg MCHC 31.8 (31.0-37.0) g/dL RDW Std Deviation 49.7 (28.0-62.0) fl RDW Coeff of Radha 16 H (11.0-15.0) % Plt Count 231 (150-400) K/uL MPV 9.80 (7.40-12.00) fL Neut % (Auto) 75.6 (48.0-80.0) % Lymph % (Auto) 10.7 L (16.0-40.0) % [place] % (Auto) 12.9 (0.0-15.0) % Eos % (Auto) 0.5 (0.0-7.0) % Baso % (Auto) 0.3 (0.0-1.5) % Neut # (Auto) 8.5 H (1.4-5.7) K/uL Lymph # (Auto) 1.2 (0.6-2.4) K/uL [place] # (Auto) 1.5 H (0.0-0.8) K/uL Eos # (Auto) 0.1 (0.0-0.7) K/uL Baso # (Auto) 0.0 (0.0-0.1) K/uL Nucleated RBC % 0.0 /100WBC Nucleated RBCs # 0 K/uL INR 2.17 Sodium 136 (136-145) mmol/L Potassium 3.9 (3.5-5.1) mmol/L Chloride 102 (98-107) mmol/L Carbon Dioxide 21.2 (21.0-32.0) mmol/L BUN 12 (7.0-18.0) mg/dL Creatinine 1.2 H (0.6-1.0) mg/dL Est Cr Clr Drug Dosing 42.75 mL/min Estimated GFR (MDRD) 44.2 ml/min Glucose 120 H (74-106) mg/dL Calcium 9.0 (8.5-10.1) mg/dL Magnesium 1.9 (1.8-2.4) mg/dL Total Bilirubin 1.0 (0.2-1.0) mg/dL AST 38 H (15-37) IU/L ALT 25 (14-63) IU/L Alkaline Phosphatase 140 H (46-116) U/L Creatine Kinase (26-308) U/L Troponin I < 0.050 (0.000-0.056) ng/mL Total Protein 7.5 (6.4-8.2) g/dL Albumin 3.3 L (3.4-5.0) g/dL Globulin 4.2 H (2.6-4.0) g/dL Albumin/Globulin Ratio 0.8 L (0.9-1.6) Urine Color Urine Appearance Urine pH (5.0-8.0) Ur Specific Graham (1.001-1.035) Urine Protein (NEGATIVE) mg/dL Urine Glucose (UA) (NEGATIVE) mg/dL Urine Ketones (NEGATIVE) mg/dL Urine Occult Blood (NEGATIVE) Urine Nitrite (NEGATIVE) Urine Bilirubin (NEGATIVE) Urine Urobilinogen (<2.0) EU/dL Ur Leukocyte Esterase (NEGATIVE) 04/23/20 04/23/20 Range/Units 19:30 22:30 WBC (4.0-11.0) K/uL RBC (4.30-5.90) M/uL Hgb (12.0-16.0) g/dL Hct (36.0-46.0) % MCV (80.0-98.0) fL MCH (27.0-32.0) pg MCHC (31.0-37.0) g/dL RDW Std Deviation (28.0-62.0) fl RDW Coeff of Radha (11.0-15.0) % Plt Count (150-400) K/uL MPV (7.40-12.00) fL Neut % (Auto) (48.0-80.0) % Lymph % (Auto) (16.0-40.0) % [place] % (Auto) (0.0-15.0) % Eos % (Auto) (0.0-7.0) % Baso % (Auto) (0.0-1.5) % Neut # (Auto) (1.4-5.7) K/uL Lymph # (Auto) (0.6-2.4) K/uL [place] # (Auto) (0.0-0.8) K/uL Eos # (Auto) (0.0-0.7) K/uL Baso # (Auto) (0.0-0.1) K/uL Nucleated RBC % /100WBC Nucleated RBCs # K/uL INR Sodium (136-145) mmol/L Potassium (3.5-5.1) mmol/L Chloride (98-107) mmol/L Carbon Dioxide (21.0-32.0) mmol/L BUN (7.0-18.0) mg/dL Creatinine (0.6-1.0) mg/dL Est Cr Clr Drug Dosing mL/min Estimated GFR (MDRD) ml/min Glucose (74-106) mg/dL Calcium (8.5-10.1) mg/dL Magnesium (1.8-2.4) mg/dL Total Bilirubin (0.2-1.0) mg/dL AST (15-37) IU/L ALT (14-63) IU/L Alkaline Phosphatase (46-116) U/L Creatine Kinase 518 H (26-308) U/L Troponin I (0.000-0.056) ng/mL Total Protein (6.4-8.2) g/dL Albumin (3.4-5.0) g/dL Globulin (2.6-4.0) g/dL Albumin/Globulin Ratio (0.9-1.6) Urine Color YELLOW Urine Appearance CLEAR Urine pH 5.5 (5.0-8.0) Ur Specific [place] 1.020 (1.001-1.035) Urine Protein NEGATIVE (NEGATIVE) mg/dL Urine Glucose (UA) NEGATIVE (NEGATIVE) mg/dL Urine Ketones TRACE H (NEGATIVE) mg/dL Urine Occult Blood NEGATIVE (NEGATIVE) Urine Nitrite NEGATIVE (NEGATIVE) Urine Bilirubin NEGATIVE (NEGATIVE) Urine Urobilinogen 0.2 (<2.0) EU/dL Ur Leukocyte Esterase NEGATIVE (NEGATIVE) Result Diagrams: 04/25/20 05:23 04/25/20 05:23 Sepsis Event Note - Evaluation Sepsis Screening Result: No Definite Risk - Focused Exam Vital Signs: Vital Signs Temp Pulse Resp BP Pulse Ox 04/23/20 20:30 110 H 20 143/80 H 98 04/23/20 20:00 117 H 20 135/72 96 04/23/20 19:36 35.9 C L 106 H 18 134/74 95 Problem List Initiated/Reviewed/Updated: Yes Orders Last 24hrs: Active Orders 24 hr Category Date Time Status Admission Status [Patient Status] [ADT] Stat ADT 04/23/20 20:39 Active Antiembolic Devices [RC] PER UNIT ROUTINE Care 04/23/20 22:56 Ordered EKG Documentation Completion [RC] AM Care 04/23/20 19:43 Active Oxygen Therapy [RC] PRN Care 04/23/20 22:55 Ordered Up ad Flor[place]ma [RC] ASDIRECTED Care 04/23/20 22:55 Ordered VTE/DVT Education [RC] PER UNIT ROUTINE Care 04/23/20 22:55 Ordered Vital Signs [RC] Q4H Care 04/23/20 22:55 Ordered Consult to Case Management/Header Setup Operator [CONS] Cons 04/23/20 22:55 Ordered Routine PT Evaluation and Treatment [CONS] Routine Cons 04/23/20 22:55 Ordered Regular Diet [DIET] Diet 04/23/20 Breakfast Ordered BASIC METABOLIC PANEL,BMP [CHEM] AM Lab 04/24/20 05:11 Ordered CBC WITH AUTO DIFF [HEME] AM Lab 04/24/20 05:11 Ordered CREATINE KINASE,CK [CHEM] AM Lab 04/24/20 05:11 Ordered INR,PT,PROTHROMBIN TIME [COAG] AM Lab 04/24/20 05:11 Ordered Acetaminophen [TylenoL] Med 04/23/20 22:54 Ordered 650 mg PO Q6H PRN Acetaminophen/HYDROcodone Med 04/23/20 22:54 Ordered 1 each PO TID PRN Diclofenac Sodium [Diclo Gel] Med 04/23/20 22:54 Ordered 1 applic TOP QID PRN Gabapentin [Neurontin] Med 04/24/20 06:00 Ordered 300 mg PO TID Latanoprost/Pf [Latanoprost 0.005% Eye Drop] Med 04/24/20 09:00 Ordered 1 drop EYERT DAILY Metoprolol Succinate [Toprol XL] Med 04/24/20 09:00 Ordered 100 mg PO DAILY Sodium Chloride 0.9% [Saline Flush] Med 04/23/20 19:43 Active 10 ml FLUSH ASDIRECTED PRN Sodium Chloride 0.9% [Saline Flush] Med 04/23/20 19:43 Active 2.5 ml FLUSH ASDIRECTED PRN Warfarin Sliding Scale [Coumadin Sliding Scale] Med 04/23/20 23:00 Ordered 7 mg PO SUMOWEFR Warfarin Sodium [Coumadin] Med 04/25/20 22:54 Ordered 6 mg PO TUTHSA rOPINIRole [Requip] Med 04/23/20 22:54 Ordered 3 mg PO TID PRN traMADol [Ultram] Med 04/23/20 22:54 Ordered 50 mg PO Q12HR PRN Saline Lock Insert [OM.PC] Stat Oth 04/23/20 19:43 Ordered Sequential Compression Device [OM.PC] Per Unit Routine Oth 04/23/20 22:56 Ordered Resuscitation Status Routine Resus Stat 04/23/20 22:55 Ordered Medication Orders Acetaminophen (Tylenol) 650 mg PO Q6H PRN PRN Reason: Pain Gabapentin (Neurontin) 300 mg PO TID SITA Metoprolol Succinate (Toprol Xl) 100 mg PO DAILY [facility] Non-Formulary Medication (Diclofenac Sodium [Diclo Gel]) 1 applic TOP QID PRN PRN Reason: Pain Non-Formulary Medication (Latanoprost/Pf [Latanoprost 0.005% Eye Drop]) 1 drop EYERT DAILY [facility] Non-Formulary Medication (Warfarin Sodium [Coumadin]) 6 mg PO TUTHSA [facility] Non-Formulary Medication (Acetaminophen/Hydrocodone) 1 each PO TID PRN PRN Reason: Pain Ropinirole HCl (Requip) 3 mg PO TID PRN PRN Reason: restless leg Sodium Chloride (Saline Flush) 10 ml FLUSH ASDIRECTED PRN PRN Reason: Keep Vein Open Sodium Chloride (Saline Flush) 2.5 ml FLUSH ASDIRECTED PRN PRN Reason: Keep Vein Open Tramadol HCl (Ultram) 50 mg PO Q12HR PRN PRN Reason: Pain Warfarin Sodium (Coumadin Sliding Scale) each PO SUMOWEFR [facility] Assessment/Plan Comment:: 74 yo female admitted for generalized weakness. Will observe overnight. Will consult case management in the morning. Will consult PT.
[2020-04-24] MEDS ORDERED: Sodium Chloride 0.9% 1,000 ML IV SCH (02:30)
[2020-04-24 07:07] LABS: CARBON DIOXIDE,CO2 23.4 mmol/L (21.0-32.0); POTASSIUM,K 3.7 mmol/L (3.5-5.1)
[2020-04-24] MEDS ORDERED: DICLOFENAC SODIUM TOP PRN (07:49)
[2020-04-24] MEDS ORDERED: rOPINIRole 1 MG Tab PO PRN (07:52)
[2020-04-24] MEDS: Gabapentin 300 MG Cap PO SCH ×3 (08:27→22:15)
[2020-04-24] MEDS: Acetaminophen/HYDROcodone 325-5 MG Tab PO PRN (09:02)
[2020-04-24] MEDS: Metoprolol Succinate 100 MG Tab.ER PO SCH (09:03)
--- NOTE | 2020-04-24 11:25 | PCM.PN ---
- General Info Date of Service: 04/24/20 - Review of Systems Systems Review Comment:: patient still feels weak, denies any fevers - Patient Data Vitals - Most Recent: Last Vital Signs Temp 36.7 C 04/24/20 07:20 Pulse 125 H 04/24/20 09:03 Resp 18 04/24/20 07:20 BP 117/61 04/24/20 09:03 Pulse Ox 95 04/24/20 07:20 Weight - Most Recent: 128.82 kg I&O - Last 24 Hours: Intake & Output 04/23/20 04/24/20 04/24/20 22:59 06:59 14:59 Intake Total 400 Output Total 600 Balance -200 Lab Results Last 24 Hours: Laboratory Results - last 24 hr 04/23/20 04/23/20 04/23/20 Range/Units 19:30 19:30 19:30 WBC 11.21 H (4.0-11.0) K/uL RBC 3.49 L (4.30-5.90) M/uL Hgb 9.4 L (12.0-16.0) g/dL Hct 29.6 L (36.0-46.0) % MCV 84.8 (80.0-98.0) fL MCH 26.9 L (27.0-32.0) pg MCHC 31.8 (31.0-37.0) g/dL RDW Std Deviation 49.7 (28.0-62.0) fl RDW Coeff of Radha 16 H (11.0-15.0) % Plt Count 231 (150-400) K/uL MPV 9.80 (7.40-12.00) fL Neut % (Auto) 75.6 (48.0-80.0) % Lymph % (Auto) 10.7 L (16.0-40.0) % Rice % (Auto) 12.9 (0.0-15.0) % Eos % (Auto) 0.5 (0.0-7.0) % Baso % (Auto) 0.3 (0.0-1.5) % Neut # (Auto) 8.5 H (1.4-5.7) K/uL Lymph # (Auto) 1.2 (0.6-2.4) K/uL Rice # (Auto) 1.5 H (0.0-0.8) K/uL Eos # (Auto) 0.1 (0.0-0.7) K/uL Baso # (Auto) 0.0 (0.0-0.1) K/uL Nucleated RBC % 0.0 /100WBC Nucleated RBCs # 0 K/uL INR 2.17 Sodium 136 (136-145) mmol/L Potassium 3.9 (3.5-5.1) mmol/L Chloride 102 (98-107) mmol/L Carbon Dioxide 21.2 (21.0-32.0) mmol/L BUN 12 (7.0-18.0) mg/dL Creatinine 1.2 H (0.6-1.0) mg/dL Est Cr Clr Drug Dosing 42.75 mL/min Estimated GFR (MDRD) 44.2 ml/min Glucose 120 H (74-106) mg/dL Calcium 9.0 (8.5-10.1) mg/dL Magnesium 1.9 (1.8-2.4) mg/dL Total Bilirubin 1.0 (0.2-1.0) mg/dL AST 38 H (15-37) IU/L ALT 25 (14-63) IU/L Alkaline Phosphatase 140 H (46-116) U/L Creatine Kinase (26-308) U/L Troponin I < 0.050 (0.000-0.056) ng/mL Total Protein 7.5 (6.4-8.2) g/dL Albumin 3.3 L (3.4-5.0) g/dL Globulin 4.2 H (2.6-4.0) g/dL Albumin/Globulin Ratio 0.8 L (0.9-1.6) Urine Color Urine Appearance Urine pH (5.0-8.0) Ur Specific [place] (1.001-1.035) Urine Protein (NEGATIVE) mg/dL Urine Glucose (UA) (NEGATIVE) mg/dL Urine Ketones (NEGATIVE) mg/dL Urine Occult Blood (NEGATIVE) Urine Nitrite (NEGATIVE) Urine Bilirubin (NEGATIVE) Urine Urobilinogen (<2.0) EU/dL Ur Leukocyte Esterase (NEGATIVE) SARS-CoV-2 RNA (AGUILA) (NEGATIVE) 04/23/20 04/23/20 04/23/20 Range/Units 19:30 22:30 23:00 WBC (4.0-11.0) K/uL RBC (4.30-5.90) M/uL Hgb (12.0-16.0) g/dL Hct (36.0-46.0) % MCV (80.0-98.0) fL MCH (27.0-32.0) pg MCHC (31.0-37.0) g/dL RDW Std Deviation (28.0-62.0) fl RDW Coeff of Radha (11.0-15.0) % Plt Count (150-400) K/uL MPV (7.40-12.00) fL Neut % (Auto) (48.0-80.0) % Lymph % (Auto) (16.0-40.0) % Rice % (Auto) (0.0-15.0) % Eos % (Auto) (0.0-7.0) % Baso % (Auto) (0.0-1.5) % Neut # (Auto) (1.4-5.7) K/uL Lymph # (Auto) (0.6-2.4) K/uL [place] # (Auto) (0.0-0.8) K/uL Eos # (Auto) (0.0-0.7) K/uL Baso # (Auto) (0.0-0.1) K/uL Nucleated RBC % /100WBC Nucleated RBCs # K/uL INR Sodium (136-145) mmol/L Potassium (3.5-5.1) mmol/L Chloride (98-107) mmol/L Carbon Dioxide (21.0-32.0) mmol/L BUN (7.0-18.0) mg/dL Creatinine (0.6-1.0) mg/dL Est Cr Clr Drug Dosing mL/min Estimated GFR (MDRD) ml/min Glucose (74-106) mg/dL Calcium (8.5-10.1) mg/dL Magnesium (1.8-2.4) mg/dL Total Bilirubin (0.2-1.0) mg/dL AST (15-37) IU/L ALT (14-63) IU/L Alkaline Phosphatase (46-116) U/L Creatine Kinase 518 H (26-308) U/L Troponin I (0.000-0.056) ng/mL Total Protein (6.4-8.2) g/dL Albumin (3.4-5.0) g/dL Globulin (2.6-4.0) g/dL Albumin/Globulin Ratio (0.9-1.6) Urine Color YELLOW Urine Appearance CLEAR Urine pH 5.5 (5.0-8.0) Ur Specific [place] 1.020 (1.001-1.035) Urine Protein NEGATIVE (NEGATIVE) mg/dL Urine Glucose (UA) NEGATIVE (NEGATIVE) mg/dL Urine Ketones TRACE H (NEGATIVE) mg/dL Urine Occult Blood NEGATIVE (NEGATIVE) Urine Nitrite NEGATIVE (NEGATIVE) Urine Bilirubin NEGATIVE (NEGATIVE) Urine Urobilinogen 0.2 (<2.0) EU/dL Ur Leukocyte Esterase NEGATIVE (NEGATIVE) SARS-CoV-2 RNA (AGUILA) NEGATIVE (NEGATIVE) 04/24/20 04/24/20 04/24/20 Range/Units 06:25 06:25 06:25 WBC 8.59 (4.0-11.0) K/uL RBC 3.31 L (4.30-5.90) M/uL Hgb 8.9 L (12.0-16.0) g/dL Hct 28.4 L (36.0-46.0) % MCV 85.8 (80.0-98.0) fL MCH 26.9 L (27.0-32.0) pg MCHC 31.3 (31.0-37.0) g/dL RDW Std Deviation 51.0 (28.0-62.0) fl RDW Coeff of Radha 16 H (11.0-15.0) % Plt Count 221 (150-400) K/uL MPV 9.70 (7.40-12.00) fL Neut % (Auto) 65.6 (48.0-80.0) % Lymph % (Auto) 21.4 (16.0-40.0) % Rice % (Auto) 12.0 (0.0-15.0) % Eos % (Auto) 0.9 (0.0-7.0) % Baso % (Auto) 0.1 (0.0-1.5) % Neut # (Auto) 5.6 (1.4-5.7) K/uL Lymph # (Auto) 1.8 (0.6-2.4) K/uL Rice # (Auto) 1.0 H (0.0-0.8) K/uL Eos # (Auto) 0.1 (0.0-0.7) K/uL Baso # (Auto) 0.0 (0.0-0.1) K/uL Nucleated RBC % 0.0 /100WBC Nucleated RBCs # 0 K/uL INR 2.25 Sodium 140 (136-145) mmol/L Potassium 3.7 (3.5-5.1) mmol/L Chloride 105 (98-107) mmol/L Carbon Dioxide 23.4 (21.0-32.0) mmol/L BUN 10 (7.0-18.0) mg/dL Creatinine 1.1 H (0.6-1.0) mg/dL Est Cr Clr Drug Dosing 46.63 mL/min Estimated GFR (MDRD) 48.8 ml/min Glucose 116 H (74-106) mg/dL Calcium 8.1 L (8.5-10.1) mg/dL Magnesium (1.8-2.4) mg/dL Total Bilirubin (0.2-1.0) mg/dL AST (15-37) IU/L ALT (14-63) IU/L Alkaline Phosphatase (46-116) U/L Creatine Kinase 359 H (26-308) U/L Troponin I (0.000-0.056) ng/mL Total Protein (6.4-8.2) g/dL Albumin (3.4-5.0) g/dL Globulin (2.6-4.0) g/dL Albumin/Globulin Ratio (0.9-1.6) Urine Color Urine Appearance Urine pH (5.0-8.0) Ur Specific [place] (1.001-1.035) Urine Protein (NEGATIVE) mg/dL Urine Glucose (UA) (NEGATIVE) mg/dL Urine Ketones (NEGATIVE) mg/dL Urine Occult Blood (NEGATIVE) Urine Nitrite (NEGATIVE) Urine Bilirubin (NEGATIVE) Urine Urobilinogen (<2.0) EU/dL Ur Leukocyte Esterase (NEGATIVE) SARS-CoV-2 RNA (AGUILA) (NEGATIVE) Med Orders - Current: Current Medications Acetaminophen (Tylenol) 650 mg PO Q6H PRN PRN Reason: Pain Hydrocodone Bitart/Acetaminophen ([place] 325-5 Mg) 1 tab PO TID PRN PRN Reason: pain Last Admin: 04/24/20 09:02 Dose: 1 tab Documented by: Gabapentin (Neurontin) 300 mg PO TID [facility] Last Admin: 04/24/20 08:27 Dose: 300 mg Documented by: Sodium Chloride (Normal Saline) 1,000 mls @ 100 mls/hr IV ASDIRECTED [facility] Last Admin: 04/24/20 02:40 Dose: 100 mls/hr Documented by: Metoprolol Succinate (Toprol Xl) 100 mg PO DAILY [facility] Last Admin: 04/24/20 09:03 Dose: 100 mg Documented by: Diclofenac Sodium [ (Diclo Gel]) 1 each TOP QID PRN PRN Reason: Pain Latanoprost 0.005% (Eye Drop) 1 each EYERT BEDTIME SITA Ropinirole HCl (Requip) 3 mg PO TID PRN PRN Reason: restless leg Sodium Chloride (Saline Flush) 10 ml FLUSH ASDIRECTED PRN PRN Reason: Keep Vein Open Sodium Chloride (Saline Flush) 2.5 ml FLUSH ASDIRECTED PRN PRN Reason: Keep Vein Open Tramadol HCl (Ultram) 50 mg PO Q12H PRN PRN Reason: Pain Warfarin Sodium 5 mg/ Warfarin (Sodium 2 mg) 7 mg PO 04/24/20@1400 [facility] Stop: 04/24/20 14:01 Warfarin Sodium (Coumadin Ask) 1 each PO DAILY@1400 [facility] - Exam General: Alert, Oriented Neck: Supple Lungs: Clear to Auscultation, Normal Respiratory Effort Cardiovascular: Regular Rate, Regular Rhythm GI/Abdominal Exam: Soft, Non-Tender, No Distention Extremities: Non-Tender, No Pedal Edema Skin: Warm, Dry, Intact Neurological: No New Focal Deficit Sepsis Event Note - Evaluation Sepsis Screening Result: No Definite Risk - Focused Exam Vital Signs: Vital Signs Temp Pulse Pulse Resp BP BP BP 04/24/20 09:03 125 H 117/61 04/24/20 07:20 36.7 C 103 H 18 105/63 04/24/20 03:52 36.7 C 118 H 19 115/58 L 04/24/20 00:45 36.8 C 110 H 20 131/67 04/23/20 23:30 108 H 20 139/76 Pulse Ox 04/24/20 09:03 04/24/20 07:20 95 04/24/20 03:52 94 L 04/24/20 00:45 97 04/23/20 23:30 95 - Problem List Review Problem List Initiated/Reviewed/Updated: Yes - My Orders Last 24 Hours: My Active Orders 04/23/20 22:54 Acetaminophen [TylenoL] 650 mg PO Q6H PRN traMADol [Ultram] 50 mg PO Q12H PRN 04/23/20 22:55 Oxygen Therapy [RC] PRN Up ad [place] [RC] ASDIRECTED VTE/DVT Education [RC] PER UNIT ROUTINE Vital Signs [RC] Q4H Consult to Case Management/Turf Manager [CONS] Routine PT Evaluation and Treatment [CONS] Routine Resuscitation Status Routine 04/23/20 22:56 Antiembolic Devices [RC] PER UNIT ROUTINE Sequential Compression Device [OM.PC] Per Unit Routine 04/24/20 02:24 Telemetry Monitoring [Cardiac Monitoring] [RC] Q8H 04/24/20 02:30 Sodium Chloride 0.9% [Normal Saline] 1,000 ml IV ASDIRECTED 04/24/20 07:49 Patient's Own Medication [Ptom] 1 each TOP QID PRN 04/24/20 07:51 Acetaminophen/HYDROcodone [[place] 325-5 MG] 1 tab PO TID PRN 04/24/20 07:52 rOPINIRole [Requip] 3 mg PO TID PRN 04/24/20 08:00 Gabapentin [Neurontin] 300 mg PO TID 04/24/20 09:00 Metoprolol Succinate [Toprol XL] 100 mg PO DAILY 04/24/20 14:00 Warfarin Dosing [Coumadin Ask] 1 each PO DAILY@1400 Warfarin [Coumadin] 7 mg PO 04/24/20@1400 04/24/20 21:00 Patient's Own Medication [Ptom] 1 each EYERT BEDTIME 04/25/20 05:11 BASIC METABOLIC PANEL,BMP [CHEM] AM CBC WITH AUTO DIFF [HEME] AM CPK [CREATINE KINASE,CK] [CHEM] AM - Plan Plan:: 74 yo female admitted for generalized weakness and mild rhabdomyolyses, dehydration. Case management consulted. PT consulted
[2020-04-25] MEDS: Gabapentin 300 MG Cap PO SCH ×3 (05:23→21:56)
[2020-04-25 06:10] LABS: CARBON DIOXIDE,CO2 24.4 mmol/L (21.0-32.0); POTASSIUM,K 3.6 mmol/L (3.5-5.1)
[2020-04-25] MEDS: Acetaminophen/HYDROcodone 325-5 MG Tab PO PRN (09:52)
[2020-04-25] MEDS: Metoprolol Succinate 100 MG Tab.ER PO SCH (09:54)
--- NOTE | 2020-04-25 13:52 | PCM.PN ---
- General Info Date of Service: 04/25/20 - Review of Systems Systems Review Comment:: feeling stronger, able to get to bathroom today - Patient Data Vitals - Most Recent: Last Vital Signs Temp 36.2 C 04/25/20 11:43 Pulse 103 H 04/25/20 11:43 Resp 17 04/25/20 11:43 BP 109/60 04/25/20 11:43 Pulse Ox 96 04/25/20 11:43 Weight - Most Recent: 128.82 kg I&O - Last 24 Hours: Intake & Output 04/24/20 04/25/20 04/25/20 22:59 06:59 14:59 Intake Total 1831 Output Total 500 Balance 1331 Lab Results Last 24 Hours: Laboratory Results - last 24 hr 04/24/20 04/25/20 04/25/20 Range/Units 17:19 05:23 05:23 WBC 9.41 (4.0-11.0) K/uL RBC 3.45 L (4.30-5.90) M/uL Hgb 9.3 L (12.0-16.0) g/dL Hct 30.2 L (36.0-46.0) % MCV 87.5 (80.0-98.0) fL MCH 27.0 (27.0-32.0) pg MCHC 30.8 L (31.0-37.0) g/dL RDW Std Deviation 52.9 (28.0-62.0) fl RDW Coeff of Radha 17 H (11.0-15.0) % Plt Count 229 (150-400) K/uL MPV 10.60 (7.40-12.00) fL Neut % (Auto) 72.1 (48.0-80.0) % Lymph % (Auto) 17.4 (16.0-40.0) % [place] % (Auto) 8.0 (0.0-15.0) % Eos % (Auto) 2.3 (0.0-7.0) % Baso % (Auto) 0.2 (0.0-1.5) % Neut # (Auto) 6.8 H (1.4-5.7) K/uL Lymph # (Auto) 1.6 (0.6-2.4) K/uL [place] # (Auto) 0.8 (0.0-0.8) K/uL Eos # (Auto) 0.2 (0.0-0.7) K/uL Baso # (Auto) 0.0 (0.0-0.1) K/uL Nucleated RBC % 0.0 /100WBC Nucleated RBCs # 0 K/uL INR Sodium 140 (136-145) mmol/L Potassium 3.6 (3.5-5.1) mmol/L Chloride 105 (98-107) mmol/L Carbon Dioxide 24.4 (21.0-32.0) mmol/L BUN 12 (7.0-18.0) mg/dL Creatinine 1.0 (0.6-1.0) mg/dL Est Cr Clr Drug Dosing 51.30 mL/min Estimated GFR (MDRD) 54.5 ml/min Glucose 134 H (74-106) mg/dL POC Glucose 129 H (60-110) mg/dL Calcium 8.5 (8.5-10.1) mg/dL Creatine Kinase 243 (26-308) U/L 04/25/20 Range/Units 08:18 WBC (4.0-11.0) K/uL RBC (4.30-5.90) M/uL Hgb (12.0-16.0) g/dL Hct (36.0-46.0) % MCV (80.0-98.0) fL MCH (27.0-32.0) pg MCHC (31.0-37.0) g/dL RDW Std Deviation (28.0-62.0) fl RDW Coeff of Radha (11.0-15.0) % Plt Count (150-400) K/uL MPV (7.40-12.00) fL Neut % (Auto) (48.0-80.0) % Lymph % (Auto) (16.0-40.0) % [place] % (Auto) (0.0-15.0) % Eos % (Auto) (0.0-7.0) % Baso % (Auto) (0.0-1.5) % Neut # (Auto) (1.4-5.7) K/uL Lymph # (Auto) (0.6-2.4) K/uL Wilson # (Auto) (0.0-0.8) K/uL Eos # (Auto) (0.0-0.7) K/uL Baso # (Auto) (0.0-0.1) K/uL Nucleated RBC % /100WBC Nucleated RBCs # K/uL INR 2.37 Sodium (136-145) mmol/L Potassium (3.5-5.1) mmol/L Chloride (98-107) mmol/L Carbon Dioxide (21.0-32.0) mmol/L BUN (7.0-18.0) mg/dL Creatinine (0.6-1.0) mg/dL Est Cr Clr Drug Dosing mL/min Estimated GFR (MDRD) ml/min Glucose (74-106) mg/dL POC Glucose (60-110) mg/dL Calcium (8.5-10.1) mg/dL Creatine Kinase (26-308) U/L Med Orders - Current: Current Medications Acetaminophen (Tylenol) 650 mg PO Q6H PRN PRN Reason: Pain Hydrocodone Bitart/Acetaminophen ([place] 325-5 Mg) 1 tab PO TID PRN PRN Reason: pain Last Admin: 04/25/20 09:52 Dose: 1 tab Documented by: Gabapentin (Neurontin) 300 mg PO TID [facility] Last Admin: 04/25/20 05:23 Dose: 300 mg Documented by: Metoprolol Succinate (Toprol Xl) 100 mg PO DAILY [facility] Last Admin: 04/25/20 09:54 Dose: 100 mg Documented by: Diclofenac Sodium [ (Diclo Gel]) 1 each TOP QID PRN PRN Reason: Pain Latanoprost 0.005% (Eye Drop) 1 each EYERT BEDTIME [facility] Last Admin: 04/24/20 22:17 Dose: Not Given Documented by: Ropinirole HCl (Requip) 3 mg PO TID PRN PRN Reason: restless leg Sodium Chloride (Saline Flush) 10 ml FLUSH ASDIRECTED PRN PRN Reason: Keep Vein Open Sodium Chloride (Saline Flush) 2.5 ml FLUSH ASDIRECTED PRN PRN Reason: Keep Vein Open Tramadol HCl (Ultram) 50 mg PO Q12H PRN PRN Reason: Pain Warfarin Sodium (Coumadin Ask) 1 each PO DAILY@1400 [facility] Last Admin: 04/24/20 14:05 Dose: Not Given Documented by: Discontinued Medications Sodium Chloride (Normal Saline) 1,000 mls @ 100 mls/hr IV ASDIRECTED [facility] Last Admin: 04/24/20 02:40 Dose: 100 mls/hr Documented by: Warfarin Sodium 5 mg/ Warfarin (Sodium 2 mg) 7 mg PO 04/24/20@1400 [facility] Stop: 04/24/20 14:01 Last Admin: 04/24/20 14:04 Dose: 7 mg Documented by: - Exam General: Alert, Oriented Neck: Supple Lungs: Clear to Auscultation, Normal Respiratory Effort Cardiovascular: Regular Rate, Regular Rhythm GI/Abdominal Exam: Soft, Non-Tender, No Distention Extremities: Non-Tender, No Pedal Edema Skin: Warm, Dry, Intact Neurological: No New Focal Deficit Sepsis Event Note - Evaluation Sepsis Screening Result: No Definite Risk - Focused Exam Vital Signs: Vital Signs Temp Pulse Pulse Resp BP BP Pulse Ox 04/25/20 11:43 36.2 C 103 H 17 109/60 96 04/25/20 09:54 110 H 113/57 L 04/25/20 07:08 36.4 C 114 H 20 122/70 95 04/25/20 04:30 36.8 C 78 16 126/78 94 L - Problem List Review Problem List Initiated/Reviewed/Updated: Yes - My Orders Last 24 Hours: My Active Orders 04/24/20 14:00 Warfarin Dosing [Coumadin Ask] 1 each PO DAILY@1400 04/24/20 21:00 Patient's Own Medication [Ptom] 1 each EYERT BEDTIME 04/25/20 09:50 Communication Order [RC] ROUTINE 04/26/20 05:11 BASIC METABOLIC PANEL,BMP [CHEM] AM CBC WITH AUTO DIFF [HEME] AM 04/26/20 08:02 INR,PT,PROTHROMBIN TIME [COAG] DAILY 04/27/20 08:02 INR,PT,PROTHROMBIN TIME [COAG] DAILY 04/28/20 08:02 INR,PT,PROTHROMBIN TIME [COAG] DAILY 04/29/20 08:02 INR,PT,PROTHROMBIN TIME [COAG] DAILY - Plan Plan:: 74 yo female admitted for generalized weakness and debility. Continue PT, Anticipate discharge to SNF on .
[2020-04-25] MEDS ORDERED: Warfarin 2 MG Tab PO ONE (14:15)
[2020-04-25] MEDS ORDERED: WARFARIN SODIUM 6 MG PO SCH (22:54)
[2020-04-26 05:46] LABS: CARBON DIOXIDE,CO2 23.9 mmol/L (21.0-32.0); POTASSIUM,K 3.7 mmol/L (3.5-5.1)
[2020-04-26] MEDS: Gabapentin 300 MG Cap PO SCH ×3 (05:48→21:07)
[2020-04-26] MEDS: Metoprolol Succinate 100 MG Tab.ER PO SCH (09:39)
--- NOTE | 2020-04-26 10:50 | PCM.PN ---
- General Info Date of Service: 04/26/20 - Review of Systems Systems Review Comment:: feeling well - Patient Data Vitals - Most Recent: Last Vital Signs Temp 37.5 C 04/26/20 07:00 Pulse 108 H 04/26/20 09:39 Resp 16 04/26/20 07:00 BP 105/57 L 04/26/20 09:39 Pulse Ox 96 04/26/20 07:00 Weight - Most Recent: 128.82 kg I&O - Last 24 Hours: Intake & Output 04/25/20 04/26/20 04/26/20 22:59 06:59 14:59 Intake Total 680 Output Total 1100 Balance -420 Lab Results Last 24 Hours: Laboratory Results - last 24 hr 04/26/20 04/26/20 04/26/20 Range/Units 05:22 05:22 08:11 WBC 8.53 (4.0-11.0) K/uL RBC 3.13 L (4.30-5.90) M/uL Hgb 8.6 L (12.0-16.0) g/dL Hct 27.5 L (36.0-46.0) % MCV 87.9 (80.0-98.0) fL MCH 27.5 (27.0-32.0) pg MCHC 31.3 (31.0-37.0) g/dL RDW Std Deviation 54.1 (28.0-62.0) fl RDW Coeff of Radha 17 H (11.0-15.0) % Plt Count 227 (150-400) K/uL MPV 9.40 (7.40-12.00) fL Neut % (Auto) 68.6 (48.0-80.0) % Lymph % (Auto) 19.6 (16.0-40.0) % [place] % (Auto) 8.0 (0.0-15.0) % Eos % (Auto) 3.6 (0.0-7.0) % Baso % (Auto) 0.2 (0.0-1.5) % Neut # (Auto) 5.9 H (1.4-5.7) K/uL Lymph # (Auto) 1.7 (0.6-2.4) K/uL [place] # (Auto) 0.7 (0.0-0.8) K/uL Eos # (Auto) 0.3 (0.0-0.7) K/uL Baso # (Auto) 0.0 (0.0-0.1) K/uL Nucleated RBC % 0.0 /100WBC Nucleated RBCs # 0 K/uL INR 2.46 Sodium 140 (136-145) mmol/L Potassium 3.7 (3.5-5.1) mmol/L Chloride 106 (98-107) mmol/L Carbon Dioxide 23.9 (21.0-32.0) mmol/L BUN 14 (7.0-18.0) mg/dL Creatinine 1.1 H (0.6-1.0) mg/dL Est Cr Clr Drug Dosing 46.63 mL/min Estimated GFR (MDRD) 48.8 ml/min Glucose 115 H (74-106) mg/dL Calcium 7.9 L (8.5-10.1) mg/dL Med Orders - Current: Current Medications Acetaminophen (Tylenol) 650 mg PO Q6H PRN PRN Reason: Pain Hydrocodone Bitart/Acetaminophen ([place] 325-5 Mg) 1 tab PO TID PRN PRN Reason: pain Last Admin: 04/25/20 09:52 Dose: 1 tab Documented by: Gabapentin (Neurontin) 300 mg PO TID [facility] Last Admin: 04/26/20 05:48 Dose: 300 mg Documented by: Metoprolol Succinate (Toprol Xl) 100 mg PO DAILY [facility] Last Admin: 04/26/20 09:39 Dose: 100 mg Documented by: Diclofenac Sodium [ (Diclo Gel]) 1 each TOP QID PRN PRN Reason: Pain Latanoprost 0.005% (Eye Drop) 1 each EYERT BEDTIME [facility] Last Admin: 04/25/20 20:29 Dose: Not Given Documented by: Ropinirole HCl (Requip) 3 mg PO TID PRN PRN Reason: restless leg Sodium Chloride (Saline Flush) 10 ml FLUSH ASDIRECTED PRN PRN Reason: Keep Vein Open Sodium Chloride (Saline Flush) 2.5 ml FLUSH ASDIRECTED PRN PRN Reason: Keep Vein Open Tramadol HCl (Ultram) 50 mg PO Q12H PRN PRN Reason: Pain Warfarin Sodium (Coumadin Ask) 1 each PO DAILY@1400 [facility] Last Admin: 04/25/20 14:22 Dose: Not Given Documented by: Warfarin Sodium (Coumadin) 5 mg PO DAILY@1400 [facility] Stop: 04/26/20 14:01 Warfarin Sodium (Coumadin) 2 mg PO DAILY@1400 [facility] Stop: 04/26/20 14:01 Discontinued Medications Sodium Chloride (Normal Saline) 1,000 mls @ 100 mls/hr IV ASDIRECTED [facility] Last Admin: 04/24/20 02:40 Dose: 100 mls/hr Documented by: Warfarin Sodium 5 mg/ Warfarin (Sodium 2 mg) 7 mg PO 04/24/20@1400 [facility] Stop: 04/24/20 14:01 Last Admin: 04/24/20 14:04 Dose: 7 mg Documented by: Warfarin Sodium (Coumadin) 6 mg PO DAILY@1415 [facility] Stop: 04/25/20 14:16 Last Admin: 04/25/20 14:22 Dose: 6 mg Documented by: - Exam General: Alert, Oriented Neck: Supple Lungs: Clear to Auscultation, Normal Respiratory Effort Cardiovascular: Regular Rate, Regular Rhythm GI/Abdominal Exam: Soft, Non-Tender, No Distention Extremities: Non-Tender, No Pedal Edema Skin: Warm, Dry, Intact Neurological: No New Focal Deficit Sepsis Event Note - Evaluation Sepsis Screening Result: No Definite Risk - Focused Exam Vital Signs: Vital Signs Temp Pulse Pulse Resp BP BP Pulse Ox 04/26/20 09:39 108 H 105/57 L 04/26/20 07:00 37.5 C 108 H 16 105/57 L 96 04/26/20 03:45 37.7 C 97 17 112/57 L 97 - Problem List Review Problem List Initiated/Reviewed/Updated: Yes - My Orders Last 24 Hours: My Active Orders 04/26/20 14:00 Warfarin [Coumadin] 2 mg PO DAILY@1400 [facility] Warfarin [Coumadin] 5 mg PO DAILY@1400 [facility] 04/27/20 08:02 INR,PT,PROTHROMBIN TIME [COAG] DAILY 04/28/20 08:02 INR,PT,PROTHROMBIN TIME [COAG] DAILY 04/29/20 08:02 INR,PT,PROTHROMBIN TIME [COAG] DAILY - Plan Plan:: 74 yo female admitted for generalized weakness and debility. Continue PT, Anticipate discharge to SNF on .
[2020-04-26] MEDS ORDERED: Warfarin 5 MG Tab PO ONE (14:00)
[2020-04-26] MEDS ORDERED: Warfarin 2 MG Tab PO ONE (14:00)
[2020-04-26] MEDS: Acetaminophen/HYDROcodone 325-5 MG Tab PO PRN (21:07)
[2020-04-27] MEDS: Gabapentin 300 MG Cap PO SCH ×2 (06:29→13:19)
[2020-04-27] MEDS: Acetaminophen/HYDROcodone 325-5 MG Tab PO PRN (08:24)
[2020-04-27] MEDS: Metoprolol Succinate 100 MG Tab.ER PO SCH (08:26)
[2020-04-27] MEDS ORDERED: Warfarin 5 MG Tab PO ONE (14:00)
--- NOTE | 2020-04-27 14:56 | PCM.DCSUM1 ---
Discharge Summary - Hospital Course Brief History: 74 yo female with pmh of CHF, a.fib who was hospitalized twice this month for falls with rib fracture and recurrent UTI. She presented to the ED after slipping out of her wheelchair. She was unable to get up. Patient reports generalized weakness. She denies any fevers, shortness of breath or chest pain. Diagnosis: Stroke: No - Discharge Data Discharge Date: 04/27/20 Discharge Disposition: DC/Tfer to SNF 03 Condition: Good - Referral to Home Health Primary Care Physician: Jen Penn DO - Discharge Diagnosis/Problem(s) (1) Dehydration SNOMED Code(s): 18946538 ICD Code: E86.0 - DEHYDRATION Status: Acute Current Visit: Yes (2) Generalized weakness SNOMED Code(s): 82642181 ICD Code: R53.1 - WEAKNESS Status: Acute Current Visit: Yes (3) Acute exacerbation of chronic low back pain SNOMED Code(s): 038675228 ICD Code: M54.5 - LOW BACK PAIN; G89.29 - OTHER CHRONIC PAIN Status: Acute Current Visit: No (4) Peripheral edema SNOMED Code(s): 175006315 ICD Code: R60.9 - EDEMA, UNSPECIFIED Status: Acute Current Visit: No (5) Anemia SNOMED Code(s): 218030111 ICD Code: D64.9 - ANEMIA, UNSPECIFIED Status: Chronic Priority: High Current Visit: No Qualifiers: Anemia type: unspecified type Qualified Code(s): D64.9 - Anemia, unspecified (6) Anticoagulated with warfarin SNOMED Code(s): 01404888 ICD Code: Z79.01 - Status: Chronic Current Visit: No (7) Atrial fibrillation SNOMED Code(s): 11027051 ICD Code: I48.91 - UNSPECIFIED ATRIAL FIBRILLATION Status: Chronic Current Visit: No (8) Degenerative disc disease SNOMED Code(s): 13575478 ICD Code: OVA6021 - Status: Chronic Current Visit: No Qualifiers: Spinal region: lumbar Qualified Code(s): M51.36 - Other intervertebral disc degeneration, lumbar region (9) Diastolic heart failure SNOMED Code(s): 573259746 ICD Code: I50.30 - UNSPECIFIED DIASTOLIC (CONGESTIVE) HEART FAILURE Status: Chronic Current Visit: No Qualifiers: Heart failure chronicity: chronic Qualified Code(s): I50.32 - Chronic diastolic (congestive) heart failure (10) Gout SNOMED Code(s): 48147523 ICD Code: M10.9 - GOUT, UNSPECIFIED Status: Chronic Current Visit: No (11) Lumbar back pain SNOMED Code(s): 227416757 ICD Code: M54.5 - LOW BACK PAIN Status: Chronic Current Visit: No (12) Venous stasis dermatitis of both lower extremities SNOMED Code(s): 27880831 ICD Code: I87.2 - VENOUS INSUFFICIENCY (CHRONIC) (PERIPHERAL) Status: Chronic Current Visit: No - Patient Summary/Data Consults: Consultations 04/23/20 22:55 Consult to Case Management/Tooth Inspector [CONS] Routine PT Evaluation and Treatment [CONS] Routine Hospital Course: Admitting Diagnoses: Falls Debility Self care deficit Discharge Diagnoses: Falls Debility Self care deficit Other PMH: Diastolic CHF Lymphedema recurrent UTIs Anticoagulated on Warfarin Afib Gout Osteoporosis Ewa was admitted and evaluated by PT. She was feeling much better after ge tting moving, but understands she is a very high fall risk and needs aggressive physical therapy within a SNF to help keep her at home and independent. Today she is doing well. No chest pain and recently returned to her room from a shower. She is to resume all home medications and INR has been stable on home dosing. She is to return to the ED or clinic if concerns should arise. I spoke with Dr Cooley regarding transfer to [facility], he has accepted care upon discharge. - Patient Instructions Diet: Heart Healthy Diet Fluid Restriction: 2000 mL Activity: As Tolerated, No Strenuous Activities Driving: Do Not Drive Showering/Bathing: May Shower Notify Provider of: Fever, Increased Pain, Swelling and Redness, Drainage, Nausea and/or Vomiting Other/Special Instructions: Monitor daily weights. PT/OT to evaluate and treat - Discharge Plan *PRESCRIPTION DRUG MONITORING PROGRAM REVIEWED*: Not Applicable *COPY OF PRESCRIPTION DRUG MONITORING REPORT IN PATIENT FERNANDEZ: Not Applicable Prescriptions/Med Rec: Hydrocodone/Acetaminophen [Hydrocodone-Acetamin 5-325 mg] 1 each PO TID PRN 3 Days #15 tablet PRN Reason: Pain traMADol HCl [Tramadol HCl] 50 mg PO Q12HR PRN #15 PRN Reason: Pain Home Medications: Home Meds Bumetanide [Bumex] 2 mg PO TID 04/12/19 [History] Gabapentin [Neurontin] 300 mg PO TID 04/12/19 [History] Latanoprost/Pf [Latanoprost 0.005% Eye Drop] 1 drop EYERT BEDTIME 04/12/19 [History] Metoprolol Succinate 100 mg PO DAILY 04/12/19 [History] allopurinoL [Zyloprim] 150 mg PO DAILY 04/12/19 [History] Warfarin Sodium [Coumadin] 6 mg PO TUTHSA 10/19/19 [History] Warfarin Sodium [Coumadin] 7 mg PO SUMOWEFR 10/19/19 [History] metOLazone [Metolazone] 2.5 mg PO MOWEFR 10/19/19 [History] rOPINIRole [Requip] 3 mg PO TID PRN 10/19/19 [History] Albuterol [Proair HFA] 2 puff INH Q4H PRN 01/18/20 [History] Cyclobenzaprine [Flexeril] 10 mg PO TID PRN 01/18/20 [History] Ferrous Sulfate [High Potency Iron] 325 mg PO DAILY 01/18/20 [History] Diclofenac Sodium [Diclo Gel] 1 applic TOP QID PRN 03/30/20 [History] Potassium Citrate [Potassium Citrate ER] 10 meq PO DAILY 03/30/20 [History] Acetaminophen [Tylenol] 650 mg PO Q4H PRN tablet 03/31/20 [Rx] Hydrocodone/Acetaminophen [Hydrocodone-Acetamin 5-325 mg] 1 each PO TID PRN 3 Days #15 tablet 04/27/20 [Rx] traMADol HCl [Tramadol HCl] 50 mg PO Q12HR PRN #15 04/27/20 [Rx] Oxygen Therapy Mode: Room Air Referrals: Margie Saldaña DO [Ordering Only Provider] - 05/02/20 12:30 pm (Please arrive 15 minutes early with your identification, insurance and your own facemask.) Jen Penn DO [Primary Care Provider] - () - Discharge Summary/Plan Comment DC Time >30 min.: No - Patient Data Vitals - Most Recent: Last Vital Signs Temp 94.8 F L 04/27/20 11:27 Pulse 88 04/27/20 11:27 Resp 20 04/27/20 11:27 BP 123/57 L 04/27/20 11:27 Pulse Ox 97 04/27/20 11:27 Weight - Most Recent: 128.82 kg I&O - Last 24 hours: Intake & Output 04/26/20 04/27/20 04/27/20 22:59 06:59 14:59 Intake Total 500 480 580 Output Total 860 Balance 500 -380 580 Lab Results - Last 24 hrs: Laboratory Results - last 24 hr 04/27/20 04/27/20 Range/Units 08:05 11:45 INR 2.76 SARS-CoV-2 RNA ([place]) NEGATIVE (NEGATIVE) Med Orders - Current: Current Medications Acetaminophen (Tylenol) 650 mg PO Q6H PRN PRN Reason: Pain Hydrocodone Bitart/Acetaminophen ([place] 325-5 Mg) 1 tab PO TID PRN PRN Reason: pain Last Admin: 04/27/20 08:24 Dose: 1 tab Documented by: Gabapentin (Neurontin) 300 mg PO TID [facility] Last Admin: 04/27/20 13:19 Dose: 300 mg Documented by: Metoprolol Succinate (Toprol Xl) 100 mg PO DAILY [facility] Last Admin: 04/27/20 08:26 Dose: 100 mg Documented by: Diclofenac Sodium [ (Diclo Gel]) 1 each TOP QID PRN PRN Reason: Pain Latanoprost 0.005% (Eye Drop) 1 each EYERT BEDTIME [facility] Last Admin: 04/26/20 21:13 Dose: Not Given Documented by: Ropinirole HCl (Requip) 3 mg PO TID PRN PRN Reason: restless leg Sodium Chloride (Saline Flush) 10 ml FLUSH ASDIRECTED PRN PRN Reason: Keep Vein Open Sodium Chloride (Saline Flush) 2.5 ml FLUSH ASDIRECTED PRN PRN Reason: Keep Vein Open Tramadol HCl (Ultram) 50 mg PO Q12H PRN PRN Reason: Pain Warfarin Sodium (Coumadin Ask) 1 each PO DAILY@1400 [facility] Last Admin: 04/27/20 13:19 Dose: Not Given Documented by: Discontinued Medications Sodium Chloride (Normal Saline) 1,000 mls @ 100 mls/hr IV ASDIRECTED [facility] Last Admin: 04/24/20 02:40 Dose: 100 mls/hr Documented by: Warfarin Sodium 5 mg/ Warfarin (Sodium 2 mg) 7 mg PO 04/24/20@1400 [facility] Stop: 04/24/20 14:01 Last Admin: 04/24/20 14:04 Dose: 7 mg Documented by: Warfarin Sodium (Coumadin) 6 mg PO DAILY@1415 [facility] Stop: 04/25/20 14:16 Last Admin: 04/25/20 14:22 Dose: 6 mg Documented by: Warfarin Sodium (Coumadin) 5 mg PO DAILY@1400 [facility] Stop: 04/26/20 14:01 Last Admin: 04/26/20 14:05 Dose: 5 mg Documented by: Warfarin Sodium (Coumadin) 2 mg PO DAILY@1400 [facility] Stop: 04/26/20 14:01 Last Admin: 04/26/20 14:05 Dose: 2 mg Documented by: Warfarin Sodium (Coumadin) 5 mg PO DAILY@1400 [facility] Stop: 04/27/20 14:01 Last Admin: 04/27/20 13:19 Dose: 5 mg Documented by:
== END 2020-04-27 14:10 | DRG 558 ==
LOC: MW.ED 19:27 → MW.MS 20:39 → OBSVTOIN 04-24 11:52 → MW.MS 04-24 15:05
PROVIDERS: ADMIT Internal Medicine; ATTEND Internal Medicine
DX: R53.1 Weakness (principal); M62.82 Rhabdomyolysis; I48.20 Chronic atrial fibrillation, unspecified; I50.9 Heart failure, unspecified; I48.91 Unspecified atrial fibrillation; R29.6 Repeated falls; I50.32 Chronic diastolic (congestive) heart failure; W19.XXXD Unspecified fall, subsequent encounter; Z91.81 History of falling; Z99.3 Dependence on wheelchair; H54.40 Blindness, one eye, unspecified eye; R32 Unspecified urinary incontinence; Z87.440 Personal history of urinary (tract) infections; M19.90 Unspecified osteoarthritis, unspecified site; Z68.41 Body mass index [BMI] 40.0-44.9, adult; M79.7 Fibromyalgia; G35 Multiple sclerosis; R53.81 Other malaise; E86.0 Dehydration; Z85.820 Personal history of malignant melanoma of skin; Z98.49 Cataract extraction status, unspecified eye; Z98.62 Peripheral vascular angioplasty status; M54.5 Low back pain; Z98.84 Bariatric surgery status; G89.29 Other chronic pain; D64.9 Anemia, unspecified; Z20.828 Contact with and (suspected) exposure to other viral communicable diseases; M51.36 Other intervertebral disc degeneration, lumbar region; Z98.890 Other specified postprocedural states; M10.9 Gout, unspecified; Z88.7 Allergy status to serum and vaccine; I87.2 Venous insufficiency (chronic) (peripheral); Z91.048 Other nonmedicinal substance allergy status; E66.9 Obesity, unspecified; M81.0 Age-related osteoporosis without current pathological fracture; Z96.659 Presence of unspecified artificial knee joint; Z96.619 Presence of unspecified artificial shoulder joint; R62.7 Adult failure to thrive; Z79.01 Long term (current) use of anticoagulants; Z88.0 Allergy status to penicillin; Z88.1 Allergy status to other antibiotic agents; Z88.8 Allergy status to other drugs, medicaments and biological substances; Z91.09 Other allergy status, other than to drugs and biological substances; Z79.899 Other long term (current) drug therapy; Z90.49 Acquired absence of other specified parts of digestive tract; Z90.710 Acquired absence of both cervix and uterus; S22.39XD Fracture of one rib, unspecified side, subsequent encounter for fracture with routine healing
CPT/HCPCS: 36415 ×2; 71045; 80048; 80053; 81003; 82550 ×2; 83735; 84484; 85025 ×2; 85610 ×2; 93005; 99285; A9270 ×3; G0378 ×2; J7030; U0002; 36410; 82962; 97110-GP; 97161-GP; 97530-GP; 99218; 99231; 99238; 99284

== ENCOUNTER 2020-04-30 00:17 | Emergency (ER) | payer MEDICARE, BC ==
[2020-04-30 01:32] LABS: BLOOD UREA NITROGEN,BUN 17 mg/dL (7.0-18.0); CARBON DIOXIDE,CO2 35.4 mmol/L (21.0-32.0); CHLORIDE,CL 98 mmol/L (98-107); GLUCOSE RANDOM 119 mg/dL (74-106); POTASSIUM,K 3.5 mmol/L (3.5-5.1); SODIUM,NA 140 mmol/L (136-145)
--- NOTE | 2020-04-30 03:47 | EDM.PDOC ---
ED HPI GENERAL MEDICAL PROBLEM - General Chief Complaint: General Stated Complaint: SOB Time Seen by Provider: 04/30/20 00:39 - History of Present Illness INITIAL COMMENTS - FREE TEXT/NARRATIVE: CHIEF COMPLAINT(S): Sent in from care home HISTORY OF PRESENT ILLNESS: This is a 74-year-old woman with a past medical history of atrial fibrillation and heart failure who comes to the emergency department with a chief complaint of sent in from care home. The patient states that she was sent in from care home because they recorded a fever. She states that she has not had any chills, chest pain, shortness of breath, abd ominal pain, nausea or vomiting. She denies any dysuria or hematuria. She denies any cough. She denies any known contact with anybody with coronavirus. She states that she has had some increased urinary output however she just started Bumex. This was reiterated by the care home. REVIEW OF SYSTEMS: Constitutional: Positive for fever Eyes: Denies eye pain Ears, Nose, Mouth, & Throat: Denies earache Cardiovascular: Denies chest pain Respiratory: Denies shortness of breath Gastrointestinal: Denies Nausea, vomiting, diarrhea, hematochezia. Genitourinary: Positive for polyuria. Denies hematuria, dysuria Skin:Denies a rash Neurological: Denies blurred vision Psychiatric: Denies depression PAST MEDICAL HISTORY: As per history of present illness and as reviewed below otherwise noncontributory. SURGICAL HISTORY: As per history of present illness and as reviewed below otherwise noncontributory. LMP: Menopausal SOCIAL HISTORY: As per history of present illness and as reviewed below otherwise noncontributory. FAMILY HISTORY: As per history of present illness and as reviewed below otherwise noncontributory. EXAMINATION OF ORGAN SYSTEMS/BODY AREAS: Constitutional: Blood pressure was 110/54, heart rate 117, respiratory rate 16 with an oxygen saturation of 95% on room air. Temperature 37.7 orally. General: Overall well-appearing woman who is in no acute distress. Psychiatric: Appropriate mood and affect. Eyes: No scleral icterus or conjunctival erythema ENMT: Moist mucous membranes. No pharyngeal erythema Cardiovascular: Regular, rate, and rhythym. No gallops, murmurs, or rubs. Bilateral upper extremity pulses symmetric and intact. No peripheral edema. No JVD. Respiratory: Lungs clear to auscultation bilaterally. No wheezes, rales, or rhonchi. Gastrointestinal: Soft, non-tender, non-distended. Normoactive bowel sounds Genitourinary: No suprapubic tenderness Musculoskeletal: Normal range of motion. Skin: No lesions or abrasions. Neurological: Alert, GCS 15 MEDICAL DECISION MAKING AND COURSE IN THE ED WITH INTERPRETATION/REVIEW OF DIAGNOSTIC STUDIES: This is a 74-year-old woman with a past medical history of CHF and atrial fibrillation who comes to the emergency department with an concern for fever and polyuria who is mildly tachycardic but overall appears well. There is no evidence of any abnormality on examination. Given the patient was recently started on Bumex I do believe her increased urinary output is secondary to this medication. Patient is afebrile here without any antipyretic administration therefore I do not believe the temperature was accurate at the care home. We did repeat the temperature here multiple times. Given the patient was recently admitted we will obtain laboratory analysis to evaluate for any change. Will obtain CBC and CMP. Laboratory: CBC reveals hemoglobin of 10.2 and hematocrit of 32.3 which is increased from recently. CMP reveals elevated creatinine of 1.3 which is up from prior at 1.1 otherwise it is unremarkable. Given the elevation in her creatinine I did contact Dr. Hedrick to discuss possible observation admission. I do believe the patient is experiencing dehydration secondary to Bumex administration and increased urinary output. She recommended obtaining a urinalysis to evaluate for any signs of infection given the fever recording at the care home. If the urinalysis is negative the patient should be stable for discharge and will be encouraged to maintain adequate p.o. intake. Urinaylysis was a clean catch and was negative for leukocyte esterase, negative for nitrites, and negative for blood. WBC count 0-1. Interpretation: negative. On reevaluation, the patient continued to remain stable. I did discuss that at this time she be stable for discharge. On my evaluation, the patient was no longer tachycardic without any intervention, was not tachypneic, and had a oxygen saturation of 96% on room air. DISPOSITION: The patient was discharged home in stable condition. The patient will follow up with PCP as needed CONDITION: Fair PROCEDURES: None FINAL IMPRESSION(S)/DIAGNOSES: 1. Acute dehydration likely secondary to polyuria secondary to Bumex admi nistration Simeon Patiño M.D. - Related Data Allergies Allergy/AdvReac Type Severity Reaction Status Date / Time amoxicillin Allergy Rash Verified 04/30/20 00:39 cephalexin monohydrate Allergy Rash Verified 04/30/20 00:39 [From Keflex] Penicillins Allergy Rash Verified 04/30/20 00:39 rofecoxib [From Vioxx] Allergy Rash Verified 04/30/20 00:39 tetanus toxoid, adsorbed Allergy Rash Verified 04/30/20 00:39 valacyclovir HCl Allergy Rash Verified 04/30/20 00:39 [From Valtrex] wool Allergy Rash Verified 04/30/20 00:39 ferlacit Allergy Severe Hypotension Uncoded 04/30/20 00:39 Avalox Allergy Rash Uncoded 04/30/20 00:39 Bextra Allergy Rash Uncoded 04/30/20 00:39 celebrex Allergy Rash Uncoded 04/30/20 00:39 macrobid Allergy Rash Uncoded 04/30/20 00:39 plastic tape Allergy Rash Uncoded 04/30/20 00:39 Zofran Allergy Rash Uncoded 04/30/20 00:39 Home Meds: Home Meds Bumetanide [Bumex] 2 mg PO TID 04/12/19 [History] Gabapentin [Neurontin] 300 mg PO TID 04/12/19 [History] Latanoprost/Pf [Latanoprost 0.005% Eye Drop] 1 drop EYERT BEDTIME 04/12/19 [History] Metoprolol Succinate 100 mg PO DAILY 04/12/19 [History] allopurinoL [Zyloprim] 150 mg PO DAILY 04/12/19 [History] Warfarin Sodium [Coumadin] 6 mg PO TUTHSA 10/19/19 [History] Warfarin Sodium [Coumadin] 7 mg PO SUMOWEFR 10/19/19 [History] metOLazone [Metolazone] 2.5 mg PO MOWEFR 10/19/19 [History] rOPINIRole [Requip] 3 mg PO TID PRN 10/19/19 [History] Albuterol [Proair HFA] 2 puff INH Q4H PRN 01/18/20 [History] Cyclobenzaprine [Flexeril] 10 mg PO TID PRN 01/18/20 [History] Ferrous Sulfate [High Potency Iron] 325 mg PO DAILY 01/18/20 [History] Diclofenac Sodium [Diclo Gel] 1 applic TOP QID PRN 03/30/20 [History] Potassium Citrate [Potassium Citrate ER] 10 meq PO DAILY 03/30/20 [History] Acetaminophen [Tylenol] 650 mg PO Q4H PRN tablet 03/31/20 [Rx] Hydrocodone/Acetaminophen [Hydrocodone-Acetamin 5-325 mg] 1 each PO TID PRN 3 Days #15 tablet 04/27/20 [Rx] traMADol HCl [Tramadol HCl] 50 mg PO Q12HR PRN #15 04/27/20 [Rx] Past Medical History HEENT History: Reports: Cataract, Impaired Vision 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 Cardiovascular History: Reports: Afib, Angina, Heart Failure Respiratory History: Reports: Bronchitis, Recurrent, SOB Genitourinary History: Reports: Pyelonephritis, Urinary Incontinence, UTI, Recurrent [employer] History: Reports: Musculoskeletal History: Reports: Fibromyalgia, Osteoarthritis, Osteoporosis, Other (See Below) Other Musculoskeletal History: MS more than 50 years Neurological History: Reports: MS Psychiatric History: Reports: None Endocrine/Metabolic History: Reports: Obesity/BMI 30+ Hematologic History: Reports: Anemia Immunologic History: Reports: None Oncologic (Cancer) History: Reports: Malignant Melanoma Dermatologic History: Reports: Other (See Below) Other Dermatologic History: melanoma to top of head - Infectious Disease History Infectious Disease History: Reports: Chicken Pox, Measles, Mumps - Past Surgical History HEENT Surgical History: Reports: Cataract Surgery, Tonsillectomy Cardiovascular Surgical History: Reports: Other (See Below) Other Cardiovascular Surgeries/Procedures: angiogram without stents Respiratory Surgical History: Reports: Other (See Below) Other Respiratory Surgeries/Procedures: bronchoscopy February 2019 GI Surgical History: Reports: Appendectomy, Bariatric Procedure, Cholecystectomy, Colonoscopy, Other (See Below) Other GI Surgeries/Procedures: gastric bypass surgery Female Surgical History: Reports: Hysterectomy, Other (See Below) Other Female Surgeries/Procedures: bladder suspension Neurological Surgical History: Reports: None Musculoskeletal Surgical History: Reports: Knee Replacement, Shoulder Replacement, Other (See Below) Other Musculoskeletal Surgeries/Procedures:: left femur surgery Dermatological Surgical History: Reports: None Social & Family History - Family History Family Medical History: Noncontributory - Caffeine Use Caffeine Use: Reports: Coffee, Tea ED ROS GENERAL - Review of Systems Review Of Systems: See Below ED EXAM, GENERAL - Physical Exam Exam: See Below Course - Vital Signs Last Recorded V/S: Last Vital Signs Temp 37.7 C 04/30/20 00:31 Pulse 78 04/30/20 04:17 Resp 20 04/30/20 04:17 BP 117/78 04/30/20 04:17 Pulse Ox 93 L 04/30/20 04:17 - Orders/Labs/Meds Labs: Laboratory Tests 04/30/20 04/30/20 04/30/20 Range/Units 00:58 00:58 02:36 WBC 9.09 (4.0-11.0) K/uL RBC 3.73 L (4.30-5.90) M/uL Hgb 10.2 L (12.0-16.0) g/dL Hct 32.3 L (36.0-46.0) % MCV 86.6 (80.0-98.0) fL MCH 27.3 (27.0-32.0) pg MCHC 31.6 (31.0-37.0) g/dL RDW Std Deviation 53.6 (28.0-62.0) fl RDW Coeff of Radha 18 H (11.0-15.0) % Plt Count 267 (150-400) K/uL MPV 9.30 (7.40-12.00) fL Neut % (Auto) 62.1 (48.0-80.0) % Lymph % (Auto) 24.8 (16.0-40.0) % [place] % (Auto) 10.8 (0.0-15.0) % Eos % (Auto) 2.0 (0.0-7.0) % Baso % (Auto) 0.3 (0.0-1.5) % Neut # (Auto) 5.7 (1.4-5.7) K/uL Lymph # (Auto) 2.3 (0.6-2.4) K/uL [place] # (Auto) 1.0 H (0.0-0.8) K/uL Eos # (Auto) 0.2 (0.0-0.7) K/uL Baso # (Auto) 0.0 (0.0-0.1) K/uL Sodium 140 (136-145) mmol/L Potassium 3.5 (3.5-5.1) mmol/L Chloride 98 (98-107) mmol/L Carbon Dioxide 35.4 H (21.0-32.0) mmol/L BUN 17 (7.0-18.0) mg/dL Creatinine 1.3 H (0.6-1.0) mg/dL Est Cr Clr Drug Dosing TNP Estimated GFR (MDRD) 40.3 ml/min Glucose 119 H (74-106) mg/dL Calcium 8.1 L (8.5-10.1) mg/dL Total Bilirubin 0.5 (0.2-1.0) mg/dL AST 21 (15-37) IU/L ALT 22 (14-63) IU/L Alkaline Phosphatase 118 H (46-116) U/L Total Protein 7.2 (6.4-8.2) g/dL Albumin 3.0 L (3.4-5.0) g/dL Globulin 4.2 H (2.6-4.0) g/dL Albumin/Globulin Ratio 0.7 L (0.9-1.6) Urine Color YELLOW Urine Appearance CLEAR Urine pH 6.0 (5.0-8.0) Ur Specific [place] 1.010 (1.001-1.035) Urine Protein NEGATIVE (NEGATIVE) mg/dL Urine Glucose (UA) NEGATIVE (NEGATIVE) mg/dL Urine Ketones NEGATIVE (NEGATIVE) mg/dL Urine Occult Blood NEGATIVE (NEGATIVE) Urine Nitrite NEGATIVE (NEGATIVE) Urine Bilirubin NEGATIVE (NEGATIVE) Urine Urobilinogen 0.2 (<2.0) EU/dL Ur Leukocyte Esterase NEGATIVE (NEGATIVE) Urine RBC 0-1 (0-2/HPF) Urine WBC 0-1 (0-5/HPF) Ur Epithelial Cells RARE (NONE-FEW) Urine Bacteria RARE (NEGATIVE) Departure - Departure Time of Disposition: 03:46 Disposition: DC/Tfer to Other 70 Condition: Good Clinical Impression: Dehydration - Discharge Information *PRESCRIPTION DRUG MONITORING PROGRAM REVIEWED*: No *COPY OF PRESCRIPTION DRUG MONITORING REPORT IN PATIENT FERNANDEZ: No Instructions: Dehydration, Elderly, [id number] Referrals: PCP,None [Primary Care Provider] - Forms: ED Department Discharge Additional Instructions: The patient is informed of any results of their evaluation and diagnostic workup and all questions are answered. They are given discharge instructions and return precautions. The patient is stable for discharge. The patient states they understand and agree with the plan and that they will return if their symptoms get worse or if they have any new concerns. The following information is given to patients seen in the emergency department who are being discharged to home. This information is to outline your options for follow-up care. We provide all patients seen in our emergency department with a follow-up referral. The need for follow-up, as well as the timing and circumstances, are variable depending upon the specifics of your emergency department visit. If you don't have a primary care physician on staff, we will provide you with a referral. We always advise you to contact your personal physician following an emergency department visit to inform them of the circumstance of the visit and for follow-up with them and/or the need for any referrals to a consulting specia list. The emergency department will also refer you to a specialist when appropriate. This referral assures that you have the opportunity for follow-up care with a specialist. All of these measure are taken in an effort to provide you with optimal care, which includes your follow-up. Under all circumstances we always encourage you to contact your private physician who remains a resource for coordinating your care. When calling for follow-up care, please make the office aware that this follow-up is from your recent emergency room visit. If for any reason you are refused follow-up, please contact the [facility] Emergency Department at and asked to speak to the emergency department charge nurse. [facility] [address] [place] [id number] [facility] [address] [place] [id number] Sepsis Event Note (ED) - Evaluation Sepsis Screening Result: No Definite Risk - Focused Exam Vital Signs: Vital Signs Temp Pulse Resp BP Pulse Ox 04/30/20 04:17 78 20 117/78 93 L 04/30/20 00:31 37.7 C 117 H 16 110/54 L 95
== END 2020-04-30 04:20 | disposition other institution (70) ==
LOC: MW.ED 00:17
DX: E86.0 Dehydration (principal); I50.9 Heart failure, unspecified; I48.91 Unspecified atrial fibrillation; E66.9 Obesity, unspecified; Z88.1 Allergy status to other antibiotic agents; Z88.0 Allergy status to penicillin; Z88.7 Allergy status to serum and vaccine; Z91.09 Other allergy status, other than to drugs and biological substances; Z88.8 Allergy status to other drugs, medicaments and biological substances; Z91.048 Other nonmedicinal substance allergy status; Z79.899 Other long term (current) drug therapy; Z90.49 Acquired absence of other specified parts of digestive tract; Z90.710 Acquired absence of both cervix and uterus
CPT/HCPCS: 36415; 80053; 81001; 85025; 99283

== ENCOUNTER 2020-05-06 00:18 | Emergency (ER) | payer MEDICARE, BC ==
[2020-05-06] MEDS ORDERED: Sodium Chloride 0.9% 10 ML Syringe FLUSH PRN (00:28)
[2020-05-06] MEDS ORDERED: Sodium Chloride 0.9% 2.5 ML Syringe FLUSH PRN (00:28)
--- NOTE | 2020-05-06 00:32 | EDM.PDOC ---
ED HPI GENERAL MEDICAL PROBLEM - General Stated Complaint: FALL Time Seen by Provider: 05/06/20 00:27 - History of Present Illness INITIAL COMMENTS - FREE TEXT/NARRATIVE: History of present illness: [] The patient had a fall and hit her head. She is on warfarin. She had an INR over 8 a day ago and was 4 yesterday. She says she got a [place] for pain in her legs which is chronic. She got up quickly and fell forward on her head. She remembers it. She had no loss of consciousness. Patient has no other complaint other than her original leg pain which was there prior to the fall and her pain in the right forehead from the fall. It is mild and tolerable. Nothing makes it better or worse. Review of systems: As per history of present illness and below otherwise all systems reviewed and negative. Past medical history: As per history of present illness and as reviewed below otherwise noncontributory. Surgical history: As per history of present illness and as reviewed below otherwise noncontributory. Social history: No reported history of drug or alcohol abuse. Family history: As per history of present illness and as reviewed below otherwise noncontributory. Physical exam: Constitutional - well developed, well-nourished and in no acute distress HEENT -hematoma and abrasions above the right brow to the hairline and the right forehead. Was normocephalic, no evidence of trauma - external nose and mouth normal - no mass in neck and no JVD - mucosae moist EYES - full EOM, PERRL, no icterus - no evidence of inflammation, injection, or drainage Respiratory - no respiratory distress, equal bilateral expansion, lungs clear to auscultation and no abnormal lung sounds Cardiovascular - Regular Rhythm with S1 and S2 appreciated and no murmur, gallop or rub. GI - abdomen soft without distension or organomegaly - normal bowel sounds - no guard or rebound Musculoskeletal no gross deformity of long bones or joints - no tenderness, but there is edema that is market below the knees in both lower extremities left greater than right. Neurologic - Alert and oriented times four - CN II-XII grossly intact - motor sensory and coordination symmetrically normal Psychiatric - appropriate mood and affect with normal thought content Hematologic - No petechiae or purpura - mucosa appropriate color and sclera not pale - normal nail bed color and refill Integument -redness below the upper third of the legs. Otherwise no rash or evidence of trauma - normal turgor Diagnostics: [] Therapeutics: [] Impression: [] Plan: [] Definitive disposition and diagnosis as appropriate pending reevaluation and review of above. Right Head Pain Score (Numeric/FACES): 10 - Related Data Allergies Allergy/AdvReac Type Severity Reaction Status Date / Time amoxicillin Allergy Rash Verified 05/06/20 01:06 cephalexin monohydrate Allergy Rash Verified 05/06/20 01:06 [From Keflex] Penicillins Allergy Rash Verified 05/06/20 01:06 rofecoxib [From Vioxx] Allergy Rash Verified 05/06/20 01:06 tetanus toxoid, adsorbed Allergy Rash Verified 05/06/20 01:06 valacyclovir HCl Allergy Rash Verified 05/06/20 01:06 [From Valtrex] wool Allergy Rash Verified 05/06/20 01:06 ferlacit Allergy Severe Hypotension Uncoded 05/06/20 01:06 Avalox Allergy Rash Uncoded 05/06/20 01:06 Bextra Allergy Rash Uncoded 05/06/20 01:06 celebrex Allergy Rash Uncoded 05/06/20 01:06 macrobid Allergy Rash Uncoded 05/06/20 01:06 plastic tape Allergy Rash Uncoded 05/06/20 01:06 Zofran Allergy Rash Uncoded 05/06/20 01:06 Home Meds: Home Meds Bumetanide [Bumex] 2 mg PO TID 04/12/19 [History] Gabapentin [Neurontin] 300 mg PO TID 04/12/19 [History] Latanoprost/Pf [Latanoprost 0.005% Eye Drop] 1 drop EYERT BEDTIME 04/12/19 [History] Metoprolol Succinate 100 mg PO DAILY 04/12/19 [History] allopurinoL [Zyloprim] 150 mg PO DAILY 04/12/19 [History] Warfarin Sodium [Coumadin] 6 mg PO TUTHSA 10/19/19 [History] Warfarin Sodium [Coumadin] 7 mg PO SUMOWEFR 10/19/19 [History] metOLazone [Metolazone] 2.5 mg PO MOWEFR 10/19/19 [History] rOPINIRole [Requip] 3 mg PO TID PRN 10/19/19 [History] Albuterol [Proair HFA] 2 puff INH Q4H PRN 01/18/20 [History] Cyclobenzaprine [Flexeril] 10 mg PO TID PRN 01/18/20 [History] Ferrous Sulfate [High Potency Iron] 325 mg PO DAILY 01/18/20 [History] Diclofenac Sodium [Diclo Gel] 1 applic TOP QID PRN 03/30/20 [History] Potassium Citrate [Potassium Citrate ER] 10 meq PO DAILY 03/30/20 [History] Acetaminophen [Tylenol] 650 mg PO Q4H PRN tablet 03/31/20 [Rx] Hydrocodone/Acetaminophen [Hydrocodone-Acetamin 5-325 mg] 1 each PO TID PRN 3 Days #15 tablet 04/27/20 [Rx] traMADol HCl [Tramadol HCl] 50 mg PO Q12HR PRN #15 04/27/20 [Rx] Past Medical History HEENT History: Reports: Cataract, Impaired Vision 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 Cardiovascular History: Reports: Afib, Angina, Heart Failure Respiratory History: Reports: Bronchitis, Recurrent, SOB Genitourinary History: Reports: Pyelonephritis, Urinary Incontinence, UTI, R ecurrent [employer] History: Reports: Musculoskeletal History: Reports: Fibromyalgia, Osteoarthritis, Osteoporosis, Other (See Below) Other Musculoskeletal History: MS more than 50 years Neurological History: Reports: MS Psychiatric History: Reports: None Endocrine/Metabolic History: Reports: Obesity/BMI 30+ Hematologic History: Reports: Anemia Immunologic History: Reports: None Oncologic (Cancer) History: Reports: Malignant Melanoma Dermatologic History: Reports: Other (See Below) Other Dermatologic History: melanoma to top of head - Infectious Disease History Infectious Disease History: Reports: Chicken Pox, Measles, Mumps - Past Surgical History HEENT Surgical History: Reports: Cataract Surgery, Tonsillectomy Cardiovascular Surgical History: Reports: Other (See Below) Other Cardiovascular Surgeries/Procedures: angiogram without stents Respiratory Surgical History: Reports: Other (See Below) Other Respiratory Surgeries/Procedures: bronchoscopy February 2019 GI Surgical History: Reports: Appendectomy, Bariatric Procedure, Cholecystectomy, Colonoscopy, Other (See Below) Other GI Surgeries/Procedures: gastric bypass surgery Female Surgical History: Reports: Hysterectomy, Other (See Below) Other Female Surgeries/Procedures: bladder suspension Neurological Surgical History: Reports: None Musculoskeletal Surgical History: Reports: Knee Replacement, Shoulder Replacement, Other (See Below) Other Musculoskeletal Surgeries/Procedures:: left femur surgery Dermatological Surgical History: Reports: None Social & Family History - Family History Family Medical History: Noncontributory - Caffeine Use Caffeine Use: Reports: Coffee, Tea ED ROS GENERAL - Review of Systems Review Of Systems: Comprehensive ROS is negative, except as noted in HPI. ED EXAM, GENERAL - Physical Exam Exam: See Below Free Text/Narrative:: My physical exam as in the HPI EKG INTERPRETATION EKG Interpretation Comments: EKG performed 05/06/2028 1241 and read at 12:50 AM Rhythm atrial fibrillation heart rate 97 IA there is no P wave QT 527 axis -40 is left bundle branch block pattern. The ST and T waves are difficult to discern because there is a lot of baseline wander in his EKG in which the patient was not able to lie still. When compared to 04/23/2020 there is no obvious change. Impression no obvious acute injury or rhythm disturbance causing her fall. Course - Vital Signs Last Recorded V/S: Last Vital Signs Temp 98.2 F 05/06/20 00:18 Pulse 91 05/06/20 00:18 Resp 18 05/06/20 00:18 BP 88/55 L 05/06/20 00:18 Pulse Ox 94 L 05/06/20 00:18 - Orders/Labs/Meds Orders: Active Orders 24 hr Category Date Time Status EKG Documentation Completion [RC] AM Care 05/06/20 00:28 Active Sodium Chloride 0.9% [Saline Flush] Med 05/06/20 00:28 Active 10 ml FLUSH ASDIRECTED PRN Sodium Chloride 0.9% [Saline Flush] Med 05/06/20 00:28 Active 2.5 ml FLUSH ASDIRECTED PRN Saline Lock Insert [OM.PC] Stat Oth 05/06/20 00:28 Ordered Medication Orders Sodium Chloride (Saline Flush) 10 ml FLUSH ASDIRECTED PRN PRN Reason: Keep Vein Open Sodium Chloride (Saline Flush) 2.5 ml FLUSH ASDIRECTED PRN PRN Reason: Keep Vein Open Labs: Laboratory Tests 05/06/20 05/06/20 05/06/20 Range/Units 00:19 00:19 00:19 WBC 10.48 (4.0-11.0) K/uL RBC 4.28 L (4.30-5.90) M/uL Hgb 11.7 L (12.0-16.0) g/dL Hct 37.0 (36.0-46.0) % MCV 86.4 (80.0-98.0) fL MCH 27.3 (27.0-32.0) pg MCHC 31.6 (31.0-37.0) g/dL RDW Std Deviation 53.5 (28.0-62.0) fl RDW Coeff of Radha 17 H (11.0-15.0) % Plt Count 253 (150-400) K/uL MPV 10.30 (7.40-12.00) fL Neut % (Auto) 74.4 (48.0-80.0) % Lymph % (Auto) 15.2 L (16.0-40.0) % Steele % (Auto) 9.1 (0.0-15.0) % Eos % (Auto) 1.1 (0.0-7.0) % Baso % (Auto) 0.2 (0.0-1.5) % Neut # (Auto) 7.8 H (1.4-5.7) K/uL Lymph # (Auto) 1.6 (0.6-2.4) K/uL Steele # (Auto) 1.0 H (0.0-0.8) K/uL Eos # (Auto) 0.1 (0.0-0.7) K/uL Baso # (Auto) 0.0 (0.0-0.1) K/uL INR 3.89 Sodium 134 L (136-145) mmol/L Potassium 2.7 L (3.5-5.1) mmol/L Chloride 88 L (98-107) mmol/L Carbon Dioxide 37.2 H (21.0-32.0) mmol/L BUN 51 H (7.0-18.0) mg/dL Creatinine 1.7 H (0.6-1.0) mg/dL Est Cr Clr Drug Dosing TNP Estimated GFR (MDRD) 29.5 ml/min Glucose 162 H (74-106) mg/dL Calcium 8.7 (8.5-10.1) mg/dL Total Bilirubin 0.8 (0.2-1.0) mg/dL AST 38 H (15-37) IU/L ALT 24 (14-63) IU/L Alkaline Phosphatase 125 H (46-116) U/L Total Protein 7.8 (6.4-8.2) g/dL Albumin 3.2 L (3.4-5.0) g/dL Globulin 4.6 H (2.6-4.0) g/dL Albumin/Globulin Ratio 0.7 L (0.9-1.6) Meds: Medications Generic Name Dose Route Start Last Admin Trade Name Freq PRN Reason Stop Dose Admin Sodium Chloride 10 ml 05/06/20 00:28 Saline Flush FLUSH ASDIRECTED PRN Keep Vein Open Sodium Chloride 2.5 ml 05/06/20 00:28 Saline Flush FLUSH ASDIRECTED PRN Keep Vein Open Departure - Departure Time of Disposition: 01:31 Disposition: DC/Tfer to SNF 03 Condition: Good Clinical Impression: Contusion of face - Discharge Information Instructions: Facial or Scalp Contusion Additional Instructions: There is no acute fracture or intracranial injury on the CT but there was a thyroid nodule discovered and that if it is not been investigated in the past and needs to be reported to the primary attending responsible for this patient. [facility] - Primary Care [address] [place] [address] [place] [address] The following information is given to patients seen in the emergency department who are being discharged to home. This information is to outline your options for follow-up care. We provide all patients seen in our emergency department with a follow-up referral. The need for follow-up, as well as the timing and circumstances, are variable depending upon the specifics of your emergency department visit. If you don't have a primary care physician on staff, we will provide you with a referral. We always advise you to contact your personal physician following an emergency department visit to inform them of the circumstance of the visit and for follow-up with them and/or the need for any referrals to a consulting specialist. The emergency department will also refer you to a specialist when appropriate. This referral assures that you have the opportunity for follow-up care with a specialist. All of these measure are taken in an effort to provide you with optimal care, which includes your follow-up. Under all circumstances we always encourage you to contact your private physician who remains a resource for coordinating your care. When calling for follow-up care, please make the office aware that this follow-up is from your recent emergency room visit. If for any reason you are refused follow-up, please contact the [facility] Emergency Department at and asked to speak to the emergency department charge nurse. Sepsis Event Note (ED) - Focused Exam Vital Signs: Vital Signs Temp Pulse Resp BP Pulse Ox 05/06/20 00:18 98.2 F 91 18 88/55 L 94 L - My Orders Last 24 Hours: My Active Orders 05/06/20 00:28 EKG Documentation Completion [RC] AM Sodium Chloride 0.9% [Saline Flush] 10 ml FLUSH ASDIRECTED PRN Sodium Chloride 0.9% [Saline Flush] 2.5 ml FLUSH ASDIRECTED PRN Saline Lock Insert [OM.PC] Stat - Assessment/Plan Last 24 Hours: My Active Orders 05/06/20 00:28 EKG Documentation Completion [RC] AM Sodium Chloride 0.9% [Saline Flush] 10 ml FLUSH ASDIRECTED PRN Sodium Chloride 0.9% [Saline Flush] 2.5 ml FLUSH ASDIRECTED PRN Saline Lock Insert [OM.PC] Stat
[2020-05-06 00:46] LABS: BLOOD UREA NITROGEN,BUN 51 mg/dL (7.0-18.0); CARBON DIOXIDE,CO2 37.2 mmol/L (21.0-32.0); CHLORIDE,CL 88 mmol/L (98-107); GLUCOSE RANDOM 162 mg/dL (74-106); POTASSIUM,K 2.7 mmol/L (3.5-5.1); SODIUM,NA 134 mmol/L (136-145)
--- NOTE | 2020-05-06 00:54 | CT ---
INDICATION: Fall and hit head and on blood thinners TECHNIQUE: CT Head without i.v. contrast. COMPARISON: 04/13/2020 FINDINGS: CSF space: Unremarkable for age. Brain: No evidence of mass, acute infarction or hemorrhage is seen. No mass-effect or midline shift is seen. Mild diffuse cortical atrophy is noted. Small weakening encephalomalacia is present medial right occipital lobe without interval change. Calvarium: The visualized paranasal sinuses are well aerated. The mastoid air cells are clear. The patient is status post bilateral cataract removal. The calvarium is unremarkable in appearance with no fractures identified. A small scalp hematoma is present the right frontal region. IMPRESSION: 1. No evidence of acute infarction, intracranial hemorrhage, or mass-effect seen. Dictated by Yordy Tinsley MD @ 05/06/2020 12:53:52 AM Prelim Report By Dr. Yordy Tinsley @ 05/06/2020 12:54:01 AM Please note that all CT scans at this facility use dose modulation, iterative reconstruction, and/or weight-based dosing when appropriate to reduce radiation dose to as low as reasonably achievable. Dictated by: MD @ 05/06/2020 00:54:27 (Electronically Signed)
--- NOTE | 2020-05-06 01:01 | CT ---
Indication: Fall, Trauma Technique: Nonenhanced axial CT imaging through the cervical spine. Sagittal and coronal reconstructions are provided. Comparison: CT cervical spine without contrast 04/13/2020 Findings: The cervical vertebral bodies are normal in height. No fracture is demonstrated. There is normal spinal alignment. The atlantoaxial and atlantooccipital relationships are maintained. There is no prevertebral edema. Again demonstrated are multilevel degenerative changes, most pronounced at the left C1-2 articulation, not significantly changed from prior. There is an heterogeneous enlargement of the left thyroid lobe with an underlying 4 x 3 cm nodule. Impression: 1. No acute fracture or traumatic malalignment. Stable degenerative changes. 2. Left thyroid nodule. Follow-up thyroid ultrasound is recommended as an outpatient, if not previously performed. Please note that all CT scans at this facility use dose modulation, iterative reconstruction, and/or weight-based dosing when appropriate to reduce radiation dose to as low as reasonably achievable. Dictated by Beatriz Adorno MD @ May 06 2020 12:54AM Signed by Dr. Beatriz Adorno @ May 06 2020 1:00AM
--- NOTE | 2020-05-06 01:24 | CR ---
INDICATION: Pelvis injury from fall and trauma TECHNIQUE: Pelvis radiograph 1 view on 2 films COMPARISON: None FINDINGS: Severe degradation of image quality noted due to body habitus. Bone: No acute fractures or aggressive bone lesions are identified. Diffuse osteopenia is present. Metallic plate fixation of the left proximal femur is partially visualized. Joint: The hip joint is unremarkable. The visualized sacroiliac joints are unremarkable in appearance. The pubic symphysis is normal in appearance. Soft tissue: Unremarkable. The visualized bowel gas pattern of the pelvis is unremarkable in appearance. No radiopaque foreign bodies are seen. IMPRESSION: 1. No acute osseous injuries or abnormalities are noted. 2. If there is pain or tenderness over the hips, dedicated views of the hips are recommended. Dictated by Yordy Tinsley MD @ 05/06/2020 1:23:20 AM Dictated by: Yordy Tinsley MD @ 05/06/2020 01:23:24 (Electronically Signed)
--- NOTE | 2020-05-06 01:24 | CR ---
INDICATION: Trauma, fall TECHNIQUE: Portable semiupright AP view of the chest COMPARISON: AP chest radiograph 04/23/2020 FINDINGS: The lungs are clear. There is no sizable pleural effusion or pneumothorax. The cardiomediastinal silhouette is normal. Bilateral shoulder arthroplasties are noted. IMPRESSION: No acute intrathoracic process. Dictated by Beatriz Adorno MD @ May 06 2020 1:22AM Signed by Dr. Beatriz Adorno @ May 06 2020 1:23AM
== END 2020-05-06 02:25 ==
LOC: MW.ED 00:18
DX: S00.83XA Contusion of other part of head, initial encounter (principal); I48.91 Unspecified atrial fibrillation; I50.9 Heart failure, unspecified; G35 Multiple sclerosis; M19.90 Unspecified osteoarthritis, unspecified site; E66.9 Obesity, unspecified; Z68.37 Body mass index [BMI] 37.0-37.9, adult; Z79.01 Long term (current) use of anticoagulants; Z88.1 Allergy status to other antibiotic agents; Z88.0 Allergy status to penicillin; Z88.8 Allergy status to other drugs, medicaments and biological substances; Z88.7 Allergy status to serum and vaccine; Z91.048 Other nonmedicinal substance allergy status; Z79.899 Other long term (current) drug therapy; W06.XXXA Fall from bed, initial encounter
CPT/HCPCS: 36415; 70450; 70450-26; 71045; 71045-26; 72125; 72125-26; 72170; 72170-26; 80053; 85025; 85610; 93005; 99284-25

== ENCOUNTER 2020-07-20 21:58 | Emergency (ER) | payer MEDICARE, BC ==
--- NOTE | 2020-07-20 22:17 | EDM.PDOC ---
ED HPI GENERAL MEDICAL PROBLEM - General Chief Complaint: General Stated Complaint: LOWER BACK PAIN Time Seen by Provider: 07/20/20 22:00 Source of Information: Reports: Longterm Records History Limitations: Reports: No Limitations - History of Present Illness INITIAL COMMENTS - FREE TEXT/NARRATIVE: 75-year-old female past medical history sciatica presents for right lower back pain radiating down her leg consistent with history of sciatica. States that she had not had problems with her sciatica in several years, used to get back injections but has not had them in several years. Symptoms of the last 2-week that symptoms seem to be worsening. She saw her primary care physician was given Percocet and Flexeril. This helped initially but the pain came back. She has not had an MRI in a long time. She denies muscle paralysis, urinary symptoms, fevers. Right Leg Pain Score (Numeric/FACES): 10 - Related Data Allergies Allergy/AdvReac Type Severity Reaction Status Date / Time amoxicillin Allergy Rash Verified 05/06/20 01:06 cephalexin monohydrate Allergy Rash Verified 05/06/20 01:06 [From Keflex] Penicillins Allergy Rash Verified 05/06/20 01:06 rofecoxib [From Vioxx] Allergy Rash Verified 05/06/20 01:06 tetanus toxoid, adsorbed Allergy Rash Verified 05/06/20 01:06 valacyclovir HCl Allergy Rash Verified 05/06/20 01:06 [From Valtrex] wool Allergy Rash Verified 05/06/20 01:06 ferlacit Allergy Severe Hypotension Uncoded 05/06/20 01:06 Avalox Allergy Rash Uncoded 05/06/20 01:06 Bextra Allergy Rash Uncoded 05/06/20 01:06 celebrex Allergy Rash Uncoded 05/06/20 01:06 macrobid Allergy Rash Uncoded 05/06/20 01:06 plastic tape Allergy Rash Uncoded 05/06/20 01:06 Zofran Allergy Rash Uncoded 05/06/20 01:06 Home Meds: Home Meds Bumetanide [Bumex] 2 mg PO TID 04/12/19 [History] Gabapentin [Neurontin] 300 mg PO TID 04/12/19 [History] Latanoprost/Pf [Latanoprost 0.005% Eye Drop] 1 drop EYERT BEDTIME 04/12/19 [History] Metoprolol Succinate 100 mg PO DAILY 04/12/19 [History] allopurinoL [Zyloprim] 150 mg PO DAILY 04/12/19 [History] Warfarin Sodium [Coumadin] 6 mg PO TUTHSA 10/19/19 [History] Warfarin Sodium [Coumadin] 7 mg PO SUMOWEFR 10/19/19 [History] metOLazone [Metolazone] 2.5 mg PO MOWEFR 10/19/19 [History] rOPINIRole [Requip] 3 mg PO TID PRN 10/19/19 [History] Albuterol [Proair HFA] 2 puff INH Q4H PRN 01/18/20 [History] Cyclobenzaprine [Flexeril] 10 mg PO TID PRN 01/18/20 [History] Ferrous Sulfate [High Potency Iron] 325 mg PO DAILY 01/18/20 [History] Diclofenac Sodium [Diclo Gel] 1 applic TOP QID PRN 03/30/20 [History] Potassium Citrate [Potassium Citrate ER] 10 meq PO DAILY 03/30/20 [History] Acetaminophen [Tylenol] 650 mg PO Q4H PRN tablet 03/31/20 [Rx] Hydrocodone/Acetaminophen [Hydrocodone-Acetamin 5-325 mg] 1 each PO TID PRN 3 Days #15 tablet 04/27/20 [Rx] traMADol HCl [Tramadol HCl] 50 mg PO Q12HR PRN #15 04/27/20 [Rx] oxyCODONE HCl/Acetaminophen [Percocet 5-325 mg Tablet] 1 each PO Q4H PRN 3 Days #18 tablet 07/20/20 [Rx] Past Medical History HEENT History: Reports: Cataract, Impaired Vision 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 Cardiovascular History: Reports: Afib, Angina, Heart Failure Respiratory History: Reports: Bronchitis, Recurrent, SOB Genitourinary History: Reports: Pyelonephritis, Urinary Incontinence, UTI, Recurrent 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: Musculoskeletal History: Reports: Fibromyalgia, Osteoarthritis, Osteoporosis, Other (See Below) Other Musculoskeletal History: MS more than 50 years Neurological History: Reports: MS Psychiatric History: Reports: None Endocrine/Metabolic History: Reports: Obesity/BMI 30+ Hematologic History: Reports: Anemia Immunologic History: Reports: None Oncologic (Cancer) History: Reports: Malignant Melanoma Dermatologic History: Reports: Other (See Below) Other Dermatologic History: melanoma to top of head - Infectious Disease History Infectious Disease History: Reports: Chicken Pox, Measles, Mumps - Past Surgical History HEENT Surgical History: Reports: Cataract Surgery, Tonsillectomy Cardiovascular Surgical History: Reports: Other (See Below) Other Cardiovascular Surgeries/Procedures: angiogram without stents Respiratory Surgical History: Reports: Other (See Below) Other Respiratory Surgeries/Procedures: bronchoscopy February 2019 GI Surgical History: Reports: Appendectomy, Bariatric Procedure, Cholecystectomy, Colonoscopy, Other (See Below) Other GI Surgeries/Procedures: gastric bypass surgery Female Surgical History: Reports: Hysterectomy, Other (See Below) Other Female Surgeries/Procedures: bladder suspension Neurological Surgical History: Reports: None Musculoskeletal Surgical History: Reports: Knee Replacement, Shoulder Replacement, Other (See Below) Other Musculoskeletal Surgeries/Procedures:: left femur surgery Dermatological Surgical History: Reports: None Social & Family History - Family History Family Medical History: No Pertinent Family History - Caffeine Use Caffeine Use: Reports: Coffee, Tea ED ROS GENERAL - Review of Systems Review Of Systems: Comprehensive ROS is negative, except as noted in HPI. ED EXAM, GENERAL - Physical Exam Exam: See Below Exam Limited By: No Limitations General Appearance: Alert, WD/WN, No Apparent Distress Throat/Mouth: Normal Voice, No Airway Compromise Head: Atraumatic, Normocephalic Neck: Normal Inspection Respiratory/Chest: No Respiratory Distress, Lungs Clear, Normal Breath Sounds, No Accessory Muscle Use Cardiovascular: Normal Peripheral Pulses, Regular Rate, Rhythm Back Exam: Normal Inspection, Other (R paraspinal lumbar musculature TTP w/ radiation down R buttocks/leg, R gluteal musclature TTP) Neurological: Alert Psychiatric: Normal Affect, Normal Mood Skin Exam: Warm, Dry, Intact, Normal Color Course - Vital Signs Last Recorded V/S: Last Vital Signs Temp 97.5 F 07/20/20 22:13 Pulse 81 07/20/20 22:13 Resp 18 07/20/20 22:13 BP 131/67 07/20/20 22:13 Pulse Ox 94 L 07/20/20 22:13 - Orders/Labs/Meds Meds: Medications Discontinued Medications Generic Name Dose Route Start Last Admin Trade Name Freq PRN Reason Stop Dose Admin Dexamethasone 10 mg 07/20/20 22:21 07/20/20 22:29 Decadron IM 07/20/20 22:22 10 mg ONETIME ONE Administration Ketorolac Tromethamine 30 mg 07/20/20 22:22 07/20/20 22:29 Toradol IM 07/20/20 22:23 30 mg ONETIME ONE Administration Oxycodone/Acetaminophen 1 tab 07/20/20 22:21 07/20/20 22:28 Percocet 325-10 Mg PO 07/20/20 22:22 1 tab ONETIME ONE Administration - Re-Assessments/Exams Free Text/Narrative Re-Assessment/Exam: 07/20/20 22:28 Recommended the patient follow-up with a specialist. He would likely benefit from repeat MRI and spinal injections. Patient does not have diabetes so we will give systemic steroids, analgesia. We will follow-up reassessment and disposition accordingly. 07/20/20 23:05 Will d/c with spine f/u Departure - Departure Time of Disposition: 23:06 Disposition: Home, Self-Care 01 Condition: Good Clinical Impression: Sciatic nerve pain Qualifiers: Laterality: right Qualified Code(s): M54.31 - Sciatica, right side - Discharge Information Prescriptions: oxyCODONE HCl/Acetaminophen [Percocet 5-325 mg Tablet] 1 each PO Q4H PRN 3 Days #18 tablet PRN Reason: Pain Instructions: Sciatica, [id number] Referrals: Jen Penn DO [Primary Care Provider] - Forms: ED Department Discharge Additional Instructions: The following information is given to patients seen in the emergency department who are being discharged to home. This information is to outline your options for follow-up care. We provide all patients seen in our emergency department with a follow-up referral. The need for follow-up, as well as the timing and circumstances, are variable depending upon the specifics of your emergency department visit. If you don't have a primary care physician on staff, we will provide you with a referral. We always advise you to contact your personal physician following an emergency department visit to inform them of the circumstance of the visit and for follow-up with them and/or the need for any referrals to a consulting specialist. The emergency department will also refer you to a specialist when appropriate. This referral assures that you have the opportunity for follow-up care with a specialist. All of these measure are taken in an effort to provide you with optimal care, which includes your follow-up. Under all circumstances we always encourage you to contact your private physician who remains a resource for coordinating your care. When calling for follow-up care, please make the office aware that this follow-up is from your recent emergency room visit. If for any reason you are refused follow-up, please contact the [facility] Emergency Department at and asked to speak to the emergency department charge nurse. Please follow up with your primary care physician. If you do not have a primary care physician, see below: [facility] [address] [place] [id number] [facility] [address] [place] [address] Call and see if the orthopedists locally deal with sciatic pain: [facility] [address] [place] [address], [address] [place] [address] If they don't, you can follow-up with neurosurgery in [place]: [address] [place] [address] Sepsis Event Note (ED) - Focused Exam Vital Signs: Vital Signs Temp Pulse Resp BP Pulse Ox 07/20/20 22:13 97.5 F 81 18 131/67 94 L
[2020-07-20] MEDS ORDERED: Acetaminophen/oxyCODONE 325-10 MG Tab PO ONE (22:21)
[2020-07-20] MEDS ORDERED: Dexamethasone 10 MG/ML SDV IM ONE (22:21)
[2020-07-20] MEDS ORDERED: Ketorolac 30 MG/ML SDV IM ONE (22:22)
== END 2020-07-20 23:30 | disposition home or self-care (01) ==
LOC: MW.ED 21:58
DX: M54.41 Lumbago with sciatica, right side (principal); I50.9 Heart failure, unspecified; I48.91 Unspecified atrial fibrillation; E66.9 Obesity, unspecified; Z88.0 Allergy status to penicillin; Z88.7 Allergy status to serum and vaccine; Z88.8 Allergy status to other drugs, medicaments and biological substances; Z91.09 Other allergy status, other than to drugs and biological substances; Z79.01 Long term (current) use of anticoagulants; Z79.899 Other long term (current) drug therapy; Z68.36 Body mass index [BMI] 36.0-36.9, adult
CPT/HCPCS: 96372; 99283; A9270; J1100; J1885

== ENCOUNTER 2020-08-05 08:58 | Emergency (ER) | payer MEDICARE, BC ==
--- NOTE | 2020-08-05 09:22 | EDM.PDOC ---
ED HPI GENERAL MEDICAL PROBLEM - General Chief Complaint: Back Pain or Injury Stated Complaint: BACK PAIN Time Seen by Provider: 08/05/20 09:10 Source of Information: Reports: Patient History Limitations: Reports: No Limitations - History of Present Illness INITIAL COMMENTS - FREE TEXT/NARRATIVE: 75-year-old female presents today for back pain. Patient that she has had back pain for the past few years been taking tramadol and hydrocodone for pain. Patient is scheduled see her pain specialist on the and have a injection for back pain. Patient presents today because she ran of her medication and cannot take the back pain. Patient denies any urinary incontinence saddle anesthesia or other symptoms. Patient has any injuries to her back. Patient denies any nausea vomiting. Patient drove her soft here today and is able to ambulate with a walker. Patient also states she had MRI a few days ago did show arthritis changes. Patient has no other complaints - Related Data Allergies Allergy/AdvReac Type Severity Reaction Status Date / Time amoxicillin Allergy Rash Verified 08/05/20 09:19 cephalexin monohydrate Allergy Rash Verified 08/05/20 09:19 [From Keflex] Penicillins Allergy Rash Verified 08/05/20 09:19 rofecoxib [From Vioxx] Allergy Rash Verified 08/05/20 09:19 tetanus toxoid, adsorbed Allergy Rash Verified 08/05/20 09:19 valacyclovir HCl Allergy Rash Verified 08/05/20 09:19 [From Valtrex] wool Allergy Rash Verified 08/05/20 09:19 ferlacit Allergy Severe Hypotension Uncoded 08/05/20 09:19 Avalox Allergy Rash Uncoded 08/05/20 09:19 Bextra Allergy Rash Uncoded 08/05/20 09:19 celebrex Allergy Rash Uncoded 05/06/20 01:06 macrobid Allergy Rash Uncoded 08/05/20 09:19 plastic tape Allergy Rash Uncoded 08/05/20 09:19 Zofran Allergy Rash Uncoded 08/05/20 09:19 Home Meds: Home Meds Bumetanide [Bumex] 2 mg PO TID 04/12/19 [History] Gabapentin [Neurontin] 300 mg PO TID 04/12/19 [History] Latanoprost/Pf [Latanoprost 0.005% Eye Drop] 1 drop EYERT BEDTIME 04/12/19 [History] Metoprolol Succinate 100 mg PO DAILY 04/12/19 [History] allopurinoL [Zyloprim] 150 mg PO DAILY 04/12/19 [History] Warfarin Sodium [Coumadin] 6 mg PO TUTHSA 10/19/19 [History] Warfarin Sodium [Coumadin] 7 mg PO SUMOWEFR 10/19/19 [History] metOLazone [Metolazone] 2.5 mg PO MOWEFR 10/19/19 [History] rOPINIRole [Requip] 3 mg PO TID PRN 10/19/19 [History] Albuterol [Proair HFA] 2 puff INH Q4H PRN 01/18/20 [History] Cyclobenzaprine [Flexeril] 10 mg PO TID PRN 01/18/20 [History] Ferrous Sulfate [High Potency Iron] 325 mg PO DAILY 01/18/20 [History] Diclofenac Sodium [Diclo Gel] 1 applic TOP QID PRN 03/30/20 [History] Potassium Citrate [Potassium Citrate ER] 10 meq PO DAILY 03/30/20 [History] Acetaminophen [Tylenol] 650 mg PO Q4H PRN tablet 03/31/20 [Rx] Hydrocodone/Acetaminophen [Hydrocodone-Acetamin 5-325 mg] 1 each PO TID PRN 3 Days #15 tablet 04/27/20 [Rx] traMADol HCl [Tramadol HCl] 50 mg PO Q12HR PRN #15 04/27/20 [Rx] oxyCODONE HCl/Acetaminophen [Percocet 5-325 mg Tablet] 1 each PO Q4H PRN 3 Days #18 tablet 07/20/20 [Rx] Acetaminophen/oxyCODONE [Percocet 325-5 MG] 1 each PO Q8HR 5 Days #20 tab 08/05/20 [Rx] Past Medical History HEENT History: Reports: Cataract, Impaired Vision 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 Cardiovascular History: Reports: Afib, Angina, Heart Failure Respiratory History: Reports: Bronchitis, Recurrent, SOB Genitourinary History: Reports: Pyelonephritis, Urinary Incontinence, UTI, Recurrent 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: Musculoskeletal History: Reports: Fibromyalgia, Osteoarthritis, Osteoporosis, Other (See Below) Other Musculoskeletal History: MS more than 50 years Neurological History: Reports: MS Psychiatric History: Reports: None Endocrine/Metabolic History: Reports: Obesity/BMI 30+ Hematologic History: Reports: Anemia Immunologic History: Reports: None Oncologic (Cancer) History: Reports: Malignant Melanoma Dermatologic History: Reports: Other (See Below) Other Dermatologic History: melanoma to top of head - Infectious Disease History Infectious Disease History: Reports: Chicken Pox, Measles, Mumps - Past Surgical History HEENT Surgical History: Reports: Cataract Surgery, Tonsillectomy Cardiovascular Surgical History: Reports: Other (See Below) Other Cardiovascular Surgeries/Procedures: angiogram without stents Respiratory Surgical History: Reports: Other (See Below) Other Respiratory Surgeries/Procedures: bronchoscopy February 2019 GI Surgical History: Reports: Appendectomy, Bariatric Procedure, Cholecystectomy, Colonoscopy, Other (See Below) Other GI Surgeries/Procedures: gastric bypass surgery Female Surgical History: Reports: Hysterectomy, Other (See Below) Other Female Surgeries/Procedures: bladder suspension Neurological Surgical History: Reports: None Musculoskeletal Surgical History: Reports: Knee Replacement, Shoulder Replacement, Other (See Below) Other Musculoskeletal Surgeries/Procedures:: left femur surgery Dermatological Surgical History: Reports: None Social & Family History - Family History Family Medical History: No Pertinent Family History - Caffeine Use Caffeine Use: Reports: None ED ROS GENERAL - Review of Systems Review Of Systems: See Below Constitutional: Reports: No Symptoms HEENT: Reports: No Symptoms Respiratory: Reports: No Symptoms Cardiovascular: Reports: No Symptoms Endocrine: Reports: No Symptoms GI/Abdominal: Reports: No Symptoms : Reports: No Symptoms Musculoskeletal: Reports: Back Pain Skin: Reports: No Symptoms Neurological: Reports: No Symptoms Psychiatric: Reports: No Symptoms Hematologic/Lymphatic: Reports: No Symptoms Immunologic: Reports: No Symptoms ED EXAM, GENERAL - Physical Exam Exam: See Below Exam Limited By: No Limitations General Appearance: Alert, WD/WN Respiratory/Chest: No Respiratory Distress, Lungs Clear Cardiovascular: Regular Rate, Rhythm GI/Abdominal: Normal Bowel Sounds, Soft, Non-Tender Back Exam: Normal Inspection, Paraspinal Tenderness. No: CVA Tenderness (L), CVA Tenderness (R), Muscle Spasm, Vertebral Tenderness Neurological: Alert, Oriented, CN II-XII Intact, Normal Cognition, Memory Loss Remote Events Departure - Departure Time of Disposition: 09:20 Disposition: Home, Self-Care 01 Condition: Good Clinical Impression: Lumbago - Discharge Information *PRESCRIPTION DRUG MONITORING PROGRAM REVIEWED*: Not Applicable *COPY OF PRESCRIPTION DRUG MONITORING REPORT IN PATIENT FERNANDEZ: Not Applicable Instructions: Back Exercises, [id number], Chronic Back Pain Referrals: Jen Penn DO [Primary Care Provider] - Additional Instructions: The following information is given to patients seen in the emergency department who are being discharged to home. This information is to outline your options for follow-up care. We provide all patients seen in our emergency department with a follow-up referral. The need for follow-up, as well as the timing and circumstances, are variable depending upon the specifics of your emergency department visit. If you don't have a primary care physician on staff, we will provide you with a referral. We always advise you to contact your personal physician following an emergency department visit to inform them of the circumstance of the visit and for follow-up with them and/or the need for any referrals to a consulting specialist. The emergency department will also refer you to a specialist when appropriate. This referral assures that you have the opportunity for follow-up care with a specialist. All of these measure are taken in an effort to provide you with optimal care, which includes your follow-up. Under all circumstances we always encourage you to contact your private physician who remains a resource for coordinating your care. When calling for follow-up care, please make the office aware that this follow-up is from your recent emergency room visit. If for any reason you are refused follow-up, please contact the [facility] Emergency Department at and asked to speak to the emergency department charge nurse. Please follow up with your primary care physician. If you do not have a primary care physician, see below: [facility] [address] [place] [id number] [facility] [address] [place] [phone] Continue to follow-up with your pain specialist on the . If you have any loss control of your bladder numbness or tailbone area or difficulty walking please return to the ED immediately. - Assessment/Plan Assessment:: Is a 75-year-old female presents today for back pain. Patient recent MRI that showed fatty changes. Patient has no concerning findings on examination. Patient scheduled your pain specialist on the . Patient just needs pain control. Patient has been on narcotics in the past. Will attempt to control patient's pain and sent home with a 3-day course of pain medication.
== END 2020-08-05 09:58 | disposition home or self-care (01) ==
LOC: MW.ED 08:58
DX: M54.5 Low back pain (principal); I50.9 Heart failure, unspecified; I48.91 Unspecified atrial fibrillation; E66.9 Obesity, unspecified; Z88.0 Allergy status to penicillin; Z88.1 Allergy status to other antibiotic agents; Z88.7 Allergy status to serum and vaccine; Z88.8 Allergy status to other drugs, medicaments and biological substances; Z79.01 Long term (current) use of anticoagulants; Z79.899 Other long term (current) drug therapy
CPT/HCPCS: 99282; 99283

== ENCOUNTER 2021-09-17 13:12 | Emergency (ER) | payer MEDICARE, BC ==
[2021-09-17] MEDS: Dexamethasone 10 MG/ML SDV IM ONE (13:53)
== END 2021-09-17 15:10 | disposition home or self-care (01) ==
LOC: MW.ED 13:12
DX: M54.2 Cervicalgia (principal); I48.91 Unspecified atrial fibrillation; I50.9 Heart failure, unspecified; E66.9 Obesity, unspecified; Z68.41 Body mass index [BMI] 40.0-44.9, adult; Z88.0 Allergy status to penicillin; Z88.1 Allergy status to other antibiotic agents; Z88.8 Allergy status to other drugs, medicaments and biological substances; Z79.01 Long term (current) use of anticoagulants; Z79.899 Other long term (current) drug therapy
CPT/HCPCS: 70450; 72125; 96372; 99283; J1100

== ENCOUNTER 2021-11-03 12:05 | Inpatient (IN) | payer MEDICARE, BC, OTHER ==
[2021-11-03] MEDS ORDERED: Sodium Chloride 0.9% 1,000 ML IV ONE ×3 (13:51→17:27)
[2021-11-03] MEDS ORDERED: Sodium Chloride 0.9% 2.5 ML Syringe FLUSH PRN (13:51)
[2021-11-03] MEDS ORDERED: Ondansetron 4 MG/2 ML SDV IVPUSH ONE (13:51)
[2021-11-03] MEDS ORDERED: Sodium Chloride 0.9% 10 ML Syringe FLUSH PRN (13:51)
[2021-11-03] MEDS ORDERED: Acetaminophen 500 MG Tab PO ONE (13:53)
[2021-11-03 15:06] LABS: CARBON DIOXIDE,CO2 30.1 mmol/L (21.0-32.0); POTASSIUM,K 2.8 mmol/L (3.5-5.1)
[2021-11-03 15:21] LABS: CORONAVIRUS COVID-19 NAA NEGATIVE (NEGATIVE); INFLUENZA A NAA NEGATIVE (NEGATIVE); INFLUENZA B NAA NEGATIVE (NEGATIVE)
[2021-11-03] MEDS ORDERED: Levofloxacin/Dextrose 5%-Water 500 MG in Premix Bag 1 BAG IV ONE (15:33)
[2021-11-03] MEDS ORDERED: metroNIDAZOLE/Normal Saline 500 MG in Premix Bag 1 BAG IV ONE (15:35)
[2021-11-03] MEDS ORDERED: Potassium Chloride Riders 40 MEQ in Premix Bag 1 BAG IV ONE (15:35)
[2021-11-03] MEDS ORDERED: Sodium Chloride 0.9% 500 ML IV SCH (16:30)
[2021-11-03] MEDS ORDERED: methylPREDNISolone Sodium Succinate 125 MG/2 ML SDV IVPUSH ONE (16:34)
[2021-11-03] MEDS ORDERED: Famotidine 20 MG/2 ML SDV IVPUSH ONE (16:34)
[2021-11-03] MEDS ORDERED: Enoxaparin 150 MG/1 ML Syringe SUBCUT ONE (16:34)
[2021-11-03] MEDS ORDERED: Iopamidol 755 MG/ML 500 ML Multipack Bottle IVPUSH ONE (18:20)
[2021-11-03] MEDS ORDERED: Morphine 2 MG/ML SYRINGE IVPUSH PRN (19:31)
[2021-11-03] MEDS ORDERED: Ondansetron 4 MG/2 ML SDV IVPUSH PRN (19:31)
[2021-11-03] MEDS ORDERED: Acetaminophen 325 MG Tab PO PRN (19:31)
[2021-11-03] MEDS ORDERED: Albuterol/Ipratropium 3.0-0.5 MG/3 ML Neb Soln NEB PRN (19:31)
[2021-11-03] MEDS: Pantoprazole 40 MG in Sodium Chloride 0.9% 10 ML IVPUSH SCH (20:31)
[2021-11-03] MEDS: Lactated Ringers 1,000 ML IV SCH (21:13)
[2021-11-04] MEDS: Lactated Ringers 1,000 ML IV SCH (04:55)
[2021-11-04 06:58] LABS: CARBON DIOXIDE,CO2 27.6 mmol/L (21.0-32.0); POTASSIUM,K 3.3 mmol/L (3.5-5.1)
[2021-11-04] MEDS: rOPINIRole 1 MG Tab PO PRN ×2 (09:18→22:19)
[2021-11-04] MEDS: Heparin Sodium 5,000 Units/ML Vial SUBCUT SCH ×2 (09:19→17:17)
[2021-11-04] MEDS: Pantoprazole 40 MG in Sodium Chloride 0.9% 10 ML IVPUSH SCH (09:19)
[2021-11-04] MEDS ORDERED: Lactated Ringers 1,000 ML IV SCH ×2 (09:36→21:45)
[2021-11-04] MEDS ORDERED: Potassium Chloride 20 MEQ Tab.ER PO ONE (11:10)
[2021-11-04] MEDS: Gabapentin 100 MG Cap PO SCH ×2 (11:56→21:31)
[2021-11-04] MEDS ORDERED: Lactated Ringers 500 ML IV ONE (17:35)
[2021-11-04] MEDS ORDERED: Lactated Ringers 500 ML IV SCH (17:37)
[2021-11-04] MEDS: Latanoprost 0.005% Ophth Soln 2.5 ML Bottle EYERT SCH (22:15)
[2021-11-05] MEDS: Heparin Sodium 5,000 Units/ML Vial SUBCUT SCH ×3 (00:06→16:10)
[2021-11-05] MEDS: Lactated Ringers 1,000 ML IV SCH ×2 (03:55→21:18)
[2021-11-05] MEDS: Gabapentin 100 MG Cap PO SCH ×3 (05:12→21:19)
[2021-11-05] MEDS: rOPINIRole 1 MG Tab PO PRN ×2 (06:25→21:26)
[2021-11-05 06:35] LABS: CARBON DIOXIDE,CO2 27.4 mmol/L (21.0-32.0); POTASSIUM,K 3.3 mmol/L (3.5-5.1)
[2021-11-05] MEDS: Pantoprazole 40 MG in Sodium Chloride 0.9% 10 ML IVPUSH SCH (08:00)
[2021-11-05] MEDS ORDERED: Cyclobenzaprine 10 MG Tab PO PRN (10:05)
[2021-11-05] MEDS ORDERED: Potassium Chloride Riders 40 MEQ in Premix Bag 1 BAG IV ONE (10:06)
[2021-11-05] MEDS ORDERED: Magnesium Oxide 400 MG Tab PO ONE (10:07)
[2021-11-05] MEDS: Metoprolol Tartrate 25 MG Tab PO SCH ×2 (10:31→21:18)
[2021-11-05] MEDS ORDERED: Levofloxacin/Dextrose 5%-Water 750 MG in Premix Bag 1 BAG IV SCH (16:00)
[2021-11-05] MEDS ORDERED: Levofloxacin/Dextrose 5%-Water 500 MG in Premix Bag 1 BAG IV SCH (19:45)
[2021-11-05] MEDS: Latanoprost 0.005% Ophth Soln 2.5 ML Bottle EYERT SCH (21:19)
[2021-11-06] MEDS: Heparin Sodium 5,000 Units/ML Vial SUBCUT SCH ×2 (00:45→09:59)
[2021-11-06] MEDS: Gabapentin 100 MG Cap PO SCH ×2 (05:56→13:50)
[2021-11-06 06:26] LABS: CARBON DIOXIDE,CO2 26.8 mmol/L (21.0-32.0); POTASSIUM,K 3.8 mmol/L (3.5-5.1)
[2021-11-06] MEDS: Lactated Ringers 1,000 ML IV SCH (07:37)
[2021-11-06] MEDS ORDERED: Metoprolol Tartrate 50 MG Tab PO SCH (09:30)
[2021-11-06] MEDS: Pantoprazole 40 MG in Sodium Chloride 0.9% 10 ML IVPUSH SCH (09:48)
[2021-11-06] MEDS ORDERED: Cefdinir 300 MG Cap PO SCH (13:30)
[2021-11-06] MEDS ORDERED: Famotidine 20 MG/2 ML SDV IVPUSH PRN (13:44)
[2021-11-06] MEDS ORDERED: diphenhydrAMINE 50 MG/ML SDV IVPUSH PRN (13:45)
== END 2021-11-06 15:05 | disposition home health service (06) | DRG 871 ==
LOC: MW.ED 12:05 → MW.ICU 18:19 → MW.MS 11-05 11:26
PROVIDERS: ADMIT Student in an Organized Health Care Education/Training Program; ATTEND Student in an Organized Health Care Education/Training Program
DX: A41.9 Sepsis, unspecified organism (principal); N12 Tubulo-interstitial nephritis, not specified as acute or chronic; H54.7 Unspecified visual loss; I48.91 Unspecified atrial fibrillation; I50.9 Heart failure, unspecified; A41.51 Sepsis due to Escherichia coli [E. coli]; N17.0 Acute kidney failure with tubular necrosis; N10 Acute pyelonephritis; I50.32 Chronic diastolic (congestive) heart failure; Z68.41 Body mass index [BMI] 40.0-44.9, adult; E66.9 Obesity, unspecified; M19.90 Unspecified osteoarthritis, unspecified site; M81.0 Age-related osteoporosis without current pathological fracture; D64.9 Anemia, unspecified; R32 Unspecified urinary incontinence; M79.7 Fibromyalgia; H54.40 Blindness, one eye, unspecified eye; R77.8 Other specified abnormalities of plasma proteins; E87.6 Hypokalemia; G35 Multiple sclerosis; I95.9 Hypotension, unspecified; R41.0 Disorientation, unspecified; T42.6X5A Adverse effect of other antiepileptic and sedative-hypnotic drugs, initial encounter; Z20.822 Contact with and (suspected) exposure to COVID-19; R65.20 Severe sepsis without septic shock; Z88.0 Allergy status to penicillin; Z88.1 Allergy status to other antibiotic agents; Z88.8 Allergy status to other drugs, medicaments and biological substances; Z88.7 Allergy status to serum and vaccine; Z79.01 Long term (current) use of anticoagulants; Z79.899 Other long term (current) drug therapy; Z79.52 Long term (current) use of systemic steroids; Z85.820 Personal history of malignant melanoma of skin; Z90.710 Acquired absence of both cervix and uterus; Z90.49 Acquired absence of other specified parts of digestive tract; Z98.84 Bariatric surgery status; Z87.440 Personal history of urinary (tract) infections; Z91.048 Other nonmedicinal substance allergy status
CPT/HCPCS: 0240U; 36415; 51702; 51798; 71045; 74177; 80048; 80053; 81001; 82436; 82570; 82947; 83605; 83690; 83735; 84100; 84133; 84300; 84484; 85025; 85730; 87040; 87086; 87088; 87186; 93005; 93970; 96365; 96366; 96368; 96372; 96375; 99285; 93010; 99284; A9270-GY; C9113; J1644; J1650; J1956; J2405; J2930; J3480; J3490; J7030; J7040; J7120; Q9967

== ENCOUNTER 2022-02-02 05:43 | Inpatient (IN) | payer MEDICARE, BC ==
[2022-02-02] MEDS ORDERED: Sodium Chloride 0.9% 2.5 ML Syringe FLUSH PRN (06:01)
[2022-02-02] MEDS ORDERED: Sodium Chloride 0.9% 1,000 ML IV ONE (06:01)
[2022-02-02] MEDS ORDERED: Sodium Chloride 0.9% 10 ML Syringe FLUSH PRN (06:01)
[2022-02-02] MEDS ORDERED: Acetaminophen 325 MG Tab PO ONE (08:23)
[2022-02-02] MEDS ORDERED: Potassium Chloride 20 MEQ in Premix Bag 1 BAG IV ONE (08:34)
[2022-02-02] MEDS ORDERED: Sodium Chloride 0.9% 500 ML IV ONE (09:30)
[2022-02-02] MEDS ORDERED: Meropenem 1 GM in Sodium Chloride 0.9% 100 ML IV ONE ×2 (10:01→10:30)
[2022-02-02] MEDS ORDERED: Morphine 2 MG/ML SYRINGE IVPUSH ONE (10:11)
[2022-02-02] MEDS ORDERED: Sodium Chloride 0.9% 1,000 ML IV SCH (14:00)
[2022-02-02] MEDS: rOPINIRole 1 MG Tab PO SCH ×2 (14:48→21:34)
[2022-02-02] MEDS: Heparin Sodium 5,000 Units/ML Vial SUBCUT SCH ×2 (14:49→21:33)
[2022-02-02] MEDS: Gabapentin 300 MG Cap PO SCH ×2 (14:49→21:34)
[2022-02-02] MEDS: Acetaminophen/HYDROcodone 325-5 MG Tab PO PRN (14:49)
[2022-02-02] MEDS: Acetaminophen 325 MG Tab PO PRN ×2 (19:04→21:59)
[2022-02-02] MEDS ORDERED: Meropenem 1 GM in Sodium Chloride 0.9% 100 ML IV SCH (21:00)
[2022-02-02] MEDS: Meropenem 1 GM in Sodium Chloride 0.9% 100 ML IV SCH (21:35)
[2022-02-03] MEDS: Acetaminophen/HYDROcodone 325-5 MG Tab PO PRN ×2 (02:15→14:37)
[2022-02-03] MEDS: rOPINIRole 1 MG Tab PO SCH ×3 (05:46→21:17)
[2022-02-03] MEDS: Gabapentin 300 MG Cap PO SCH ×3 (05:47→21:17)
[2022-02-03] MEDS: Heparin Sodium 5,000 Units/ML Vial SUBCUT SCH ×3 (05:48→21:17)
[2022-02-03] MEDS: Acetaminophen 325 MG Tab PO PRN ×2 (06:10→21:17)
[2022-02-03 07:36] LABS: CARBON DIOXIDE,CO2 31.5 mmol/L (21.0-32.0); POTASSIUM,K 3.1 mmol/L (3.5-5.1)
[2022-02-03] MEDS ORDERED: Potassium Chloride 20 MEQ Tab.ER PO ONE (09:00)
[2022-02-03] MEDS: Allopurinol 100 MG Tab PO SCH (09:22)
[2022-02-03] MEDS: Metoprolol Succinate 100 MG Tab.ER PO SCH (09:22)
[2022-02-03] MEDS: Meropenem 1 GM in Sodium Chloride 0.9% 100 ML IV SCH ×2 (09:23→21:16)
[2022-02-03] MEDS ORDERED: Calcium Gluconate 10% 1 GM/10 ML SDV IVPUSH ONE (23:16)
[2022-02-03] MEDS ORDERED: Lactated Ringers 1,000 ML IV SCH (23:30)
[2022-02-04] MEDS: Acetaminophen/HYDROcodone 325-5 MG Tab PO PRN ×3 (02:43→21:10)
[2022-02-04] MEDS: Gabapentin 300 MG Cap PO SCH ×3 (05:15→21:09)
[2022-02-04] MEDS: Heparin Sodium 5,000 Units/ML Vial SUBCUT SCH ×3 (05:15→21:11)
[2022-02-04] MEDS: rOPINIRole 1 MG Tab PO SCH ×3 (05:15→21:09)
[2022-02-04 07:16] LABS: CARBON DIOXIDE,CO2 27.8 mmol/L (21.0-32.0); POTASSIUM,K 3.3 mmol/L (3.5-5.1)
[2022-02-04] MEDS ORDERED: Magnesium Sulfate/Water 2 GM in Premix Bag 1 BAG IV ONE (08:15)
[2022-02-04] MEDS ORDERED: Potassium Chloride 20 MEQ Tab.ER PO ONE (08:15)
[2022-02-04] MEDS ORDERED: Calcium Gluconate 10% 1 GM/10 ML SDV IVPUSH ONE (10:02)
[2022-02-04] MEDS: Allopurinol 100 MG Tab PO SCH (10:15)
[2022-02-04] MEDS: Metoprolol Succinate 100 MG Tab.ER PO SCH (10:18)
[2022-02-04] MEDS: Meropenem 1 GM in Sodium Chloride 0.9% 100 ML IV SCH ×2 (10:57→21:53)
[2022-02-04] MEDS: Latanoprost 0.005% Ophth Soln 2.5 ML Bottle EYEBOTH SCH (23:09)
[2022-02-05] MEDS: Acetaminophen/HYDROcodone 325-5 MG Tab PO PRN ×2 (03:55→21:05)
[2022-02-05] MEDS: Heparin Sodium 5,000 Units/ML Vial SUBCUT SCH ×3 (06:27→21:04)
[2022-02-05] MEDS: Gabapentin 300 MG Cap PO SCH ×3 (06:27→21:04)
[2022-02-05] MEDS: rOPINIRole 1 MG Tab PO SCH ×3 (06:27→21:04)
[2022-02-05 06:40] LABS: CARBON DIOXIDE,CO2 28.6 mmol/L (21.0-32.0); POTASSIUM,K 3.6 mmol/L (3.5-5.1)
[2022-02-05] MEDS: Meropenem Premix 1 GM in Premix Bag 1 BAG IV SCH ×2 (09:21→21:05)
[2022-02-05] MEDS: Allopurinol 100 MG Tab PO SCH (09:22)
[2022-02-05] MEDS: Metoprolol Succinate 100 MG Tab.ER PO SCH (09:23)
[2022-02-05] MEDS ORDERED: Calcium Gluconate 10% 1 GM/10 ML SDV IVPUSH ONE (09:34)
[2022-02-05] MEDS ORDERED: Calcium Gluconate 2 GM in Sodium Chloride 0.9% 100 ML IV ONE (10:00)
[2022-02-05] MEDS: Calcium Carbonate 500 MG Tab.Chew PO SCH ×2 (13:37→21:04)
[2022-02-05] MEDS: Latanoprost 0.005% Ophth Soln 2.5 ML Bottle EYEBOTH SCH (21:05)
[2022-02-06] MEDS: Calcium Carbonate 500 MG Tab.Chew PO SCH ×2 (05:55→14:24)
[2022-02-06] MEDS: rOPINIRole 1 MG Tab PO SCH ×2 (05:55→14:23)
[2022-02-06] MEDS: Acetaminophen/HYDROcodone 325-5 MG Tab PO PRN ×2 (05:55→16:18)
[2022-02-06] MEDS: Gabapentin 300 MG Cap PO SCH ×2 (05:55→14:23)
[2022-02-06] MEDS: Heparin Sodium 5,000 Units/ML Vial SUBCUT SCH ×2 (05:55→14:23)
[2022-02-06 08:14] LABS: CARBON DIOXIDE,CO2 26.2 mmol/L (21.0-32.0); POTASSIUM,K 3.5 mmol/L (3.5-5.1)
[2022-02-06] MEDS ORDERED: Cholecalciferol (Vitamin D3) 25 MCG Tab PO SCH (09:00)
[2022-02-06] MEDS: Meropenem Premix 1 GM in Premix Bag 1 BAG IV SCH (09:35)
[2022-02-06] MEDS: Metoprolol Succinate 100 MG Tab.ER PO SCH (10:05)
[2022-02-06] MEDS: Allopurinol 100 MG Tab PO SCH (10:07)
[2022-02-06] MEDS ORDERED: Meropenem Premix 1 GM in Premix Bag 1 BAG IV ONE (17:00)
== END 2022-02-06 18:00 | disposition home health service (06) | DRG 683 ==
LOC: MW.ED 05:43 → MW.MS 10:02 → UNDOADMIN 11:32 → UNDODISIN 02-06 18:00
PROVIDERS: ADMIT Internal Medicine; ATTEND Internal Medicine
PROC: XW033N5 Introduction of Meropenem-vaborbactam Anti-infective into Peripheral Vein, Percutaneous Approach, New Technology Group 5 (ICD-10-PCS; principal; 2022-02-02)
DX: N17.9 Acute kidney failure, unspecified (principal); I48.11 Longstanding persistent atrial fibrillation; N30.00 Acute cystitis without hematuria; I50.32 Chronic diastolic (congestive) heart failure; E87.6 Hypokalemia; I48.91 Unspecified atrial fibrillation; I50.9 Heart failure, unspecified; S92.505A Nondisplaced unspecified fracture of left lesser toe(s), initial encounter for closed fracture; Z20.822 Contact with and (suspected) exposure to COVID-19; M10.9 Gout, unspecified; B96.20 Unspecified Escherichia coli [E. coli] as the cause of diseases classified elsewhere; S00.03XA Contusion of scalp, initial encounter; S92.422A Displaced fracture of distal phalanx of left great toe, initial encounter for closed fracture; R32 Unspecified urinary incontinence; M79.7 Fibromyalgia; G35 Multiple sclerosis; M19.90 Unspecified osteoarthritis, unspecified site; M91.0 Juvenile osteochondrosis of pelvis; D64.9 Anemia, unspecified; I11.0 Hypertensive heart disease with heart failure; J44.9 Chronic obstructive pulmonary disease, unspecified; Z88.1 Allergy status to other antibiotic agents; Z88.0 Allergy status to penicillin; Z88.7 Allergy status to serum and vaccine; Z88.8 Allergy status to other drugs, medicaments and biological substances; Z91.048 Other nonmedicinal substance allergy status; Z79.899 Other long term (current) drug therapy; W18.30XA Fall on same level, unspecified, initial encounter
CPT/HCPCS: 36415; 70450; 71045; 72125; 73630; 80053; 81001; 83605; 83735; 84484; 85025; 87086; 87088; 87186; 93005; 96361; 96365; 96367; 96375; 99285; A9270; J2185; J2270; J3480; J3490; J7030; J7040; U0002; 80048; 82306; 82330; 83970; 84100; 93010; 97110-GP; 97116-GP; 97163-GP; 97530-GP; 99222; 99232; 99238; J0610; J1644; J3475

== ENCOUNTER 2022-02-20 14:47 | Observation (INO) | payer MEDICARE, BC, OTHER ==
[2022-02-20] MEDS ORDERED: Lactated Ringers 1,000 ML IV ONE (15:16)
[2022-02-20 16:13] LABS: CARBON DIOXIDE,CO2 27.9 mmol/L (21.0-32.0); POTASSIUM,K 3.2 mmol/L (3.5-5.1)
[2022-02-20] MEDS ORDERED: Ondansetron 4 MG/2 ML SDV IVPUSH PRN (18:50)
[2022-02-20] MEDS ORDERED: Acetaminophen 325 MG Tab PO PRN (18:50)
[2022-02-20] MEDS ORDERED: Albuterol/Ipratropium 3.0-0.5 MG/3 ML Neb Soln NEB PRN (18:50)
[2022-02-20] MEDS ORDERED: Potassium Chloride 20 MEQ Tab.ER PO ONE (19:06)
[2022-02-20] MEDS: Lactated Ringers 1,000 ML IV SCH (19:45)
[2022-02-20] MEDS: Pantoprazole 40 MG in Sodium Chloride 0.9% 10 ML IVPUSH SCH (19:46)
[2022-02-20] MEDS ORDERED: Potassium Chloride 20 MEQ Tab.ER ONE (21:38)
[2022-02-20] MEDS: rOPINIRole 1 MG Tab PO SCH (22:52)
[2022-02-20] MEDS ORDERED: Gabapentin 100 MG Cap PO ONE (23:00)
[2022-02-21] MEDS ORDERED: cefTRIAXone 1 GM in Sodium Chloride 0.9% 50 ML IV SCH ×2 (00:15→21:00)
[2022-02-21] MEDS: cefTRIAXone 1 GM in Sodium Chloride 0.9% 50 ML IV SCH (02:16)
[2022-02-21] MEDS: Lactated Ringers 1,000 ML IV SCH ×3 (02:53→20:47)
[2022-02-21] MEDS: rOPINIRole 1 MG Tab PO SCH ×3 (05:48→21:56)
[2022-02-21 06:48] LABS: CARBON DIOXIDE,CO2 29.7 mmol/L (21.0-32.0); POTASSIUM,K 3.3 mmol/L (3.5-5.1)
[2022-02-21] MEDS: Metoprolol Succinate 100 MG Tab.ER PO SCH (08:30)
[2022-02-21] MEDS ORDERED: Potassium Chloride 20 MEQ Tab.ER PO ONE (15:15)
[2022-02-21] MEDS ORDERED: Acetaminophen/HYDROcodone 325-5 MG Tab PO PRN (15:39)
[2022-02-21] MEDS: Pantoprazole 40 MG in Sodium Chloride 0.9% 10 ML IVPUSH SCH (18:22)
[2022-02-21] MEDS ORDERED: Latanoprost 0.005% Ophth Soln 2.5 ML Bottle EYEBOTH SCH (21:00)
[2022-02-21] MEDS: Gabapentin 100 MG Cap PO SCH (21:57)
[2022-02-22] MEDS: cefTRIAXone 1 GM in Sodium Chloride 0.9% 50 ML IV SCH (02:10)
[2022-02-22] MEDS ORDERED: diphenhydrAMINE 50 MG Cap PO PRN (03:41)
[2022-02-22] MEDS: rOPINIRole 1 MG Tab PO SCH ×2 (06:04→14:34)
[2022-02-22] MEDS: Gabapentin 100 MG Cap PO SCH ×2 (06:04→14:34)
[2022-02-22] MEDS: Lactated Ringers 1,000 ML IV SCH (07:34)
[2022-02-22 07:41] LABS: CARBON DIOXIDE,CO2 29.3 mmol/L (21.0-32.0); POTASSIUM,K 3.2 mmol/L (3.5-5.1)
[2022-02-22] MEDS: Metoprolol Succinate 100 MG Tab.ER PO SCH (08:55)
[2022-02-22] MEDS ORDERED: Sulfamethoxazole/Trimethoprim 800-160 MG Tab PO ONE (10:23)
== END 2022-02-22 15:55 | disposition home or self-care (01) ==
LOC: MW.ED 14:47 → MW.MS 17:07
PROVIDERS: ADMIT Student in an Organized Health Care Education/Training Program; ATTEND Student in an Organized Health Care Education/Training Program
DX: N17.9 Acute kidney failure, unspecified (principal); N18.9 Chronic kidney disease, unspecified; I13.0 Hypertensive heart and chronic kidney disease with heart failure and stage 1 through stage 4 chronic kidney disease, or unspecified chronic kidney disease; I50.9 Heart failure, unspecified; E87.6 Hypokalemia; M81.0 Age-related osteoporosis without current pathological fracture; M79.7 Fibromyalgia; E66.9 Obesity, unspecified; I48.11 Longstanding persistent atrial fibrillation; M10.9 Gout, unspecified; I87.2 Venous insufficiency (chronic) (peripheral); Z20.822 Contact with and (suspected) exposure to COVID-19; Z88.1 Allergy status to other antibiotic agents; Z88.0 Allergy status to penicillin; Z88.7 Allergy status to serum and vaccine; Z98.890 Other specified postprocedural states; Z88.8 Allergy status to other drugs, medicaments and biological substances; Z91.048 Other nonmedicinal substance allergy status; Z79.899 Other long term (current) drug therapy; Z68.41 Body mass index [BMI] 40.0-44.9, adult
CPT/HCPCS: 36415; 80048; 81001; 82550; 83735; 84100; 85025; 87086; 87088; 87186; 96361; 96365; 96375; 96376; 99284; A9270; C9113; G0378; J0696; J3490; J7120; U0002; 96374

== ENCOUNTER 2022-03-10 09:38 | Emergency (ER) | payer MEDICARE, BC, OTHER ==
[2022-03-10] MEDS ORDERED: Sodium Chloride 0.9% 1,000 ML IV ONE (10:39)
[2022-03-10] MEDS ORDERED: Sodium Chloride 0.9% 10 ML Syringe FLUSH PRN (10:39)
[2022-03-10] MEDS ORDERED: Sodium Chloride 0.9% 2.5 ML Syringe FLUSH PRN (10:39)
[2022-03-10 11:32] LABS: CARBON DIOXIDE,CO2 31.9 mmol/L (21.0-32.0); POTASSIUM,K 3.4 mmol/L (3.5-5.1)
[2022-03-10 13:34] LABS: CORONAVIRUS COVID-19 NAA NEGATIVE (NEGATIVE); INFLUENZA A NAA NEGATIVE (NEGATIVE); INFLUENZA B NAA NEGATIVE (NEGATIVE)
== END 2022-03-10 15:53 | disposition home or self-care (01) ==
LOC: MW.ED 09:38
DX: S09.90XA Unspecified injury of head, initial encounter (principal); S49.92XA Unspecified injury of left shoulder and upper arm, initial encounter; S79.912A Unspecified injury of left hip, initial encounter; S99.922A Unspecified injury of left foot, initial encounter; S89.92XA Unspecified injury of left lower leg, initial encounter; N18.9 Chronic kidney disease, unspecified; D63.1 Anemia in chronic kidney disease; I48.91 Unspecified atrial fibrillation; E66.9 Obesity, unspecified; Z20.822 Contact with and (suspected) exposure to COVID-19; Z79.899 Other long term (current) drug therapy; Z88.0 Allergy status to penicillin; Z88.1 Allergy status to other antibiotic agents; Z88.8 Allergy status to other drugs, medicaments and biological substances; Z68.41 Body mass index [BMI] 40.0-44.9, adult; Z91.048 Other nonmedicinal substance allergy status; W18.09XA Striking against other object with subsequent fall, initial encounter
CPT/HCPCS: 0240U; 36415; 70450; 71045; 72125; 73030; 73502; 73562; 73620; 80053; 81001; 83605; 84484; 85025; 87086; 87088; 87186; 93005; 96360; 99285; J3490; J7030; 93010

== ENCOUNTER 2022-07-25 08:49 | Emergency (ER) | payer MEDICARE, BC ==
[2022-07-25] MEDS ORDERED: Sodium Chloride 0.9% 10 ML Syringe FLUSH PRN (09:43)
[2022-07-25] MEDS ORDERED: Sodium Chloride 0.9% 2.5 ML Syringe FLUSH PRN (09:43)
[2022-07-25 10:53] LABS: CORONAVIRUS COVID-19 NAA NEGATIVE (NEGATIVE); INFLUENZA A NAA NEGATIVE (NEGATIVE); INFLUENZA B NAA NEGATIVE (NEGATIVE); RESPIRATORY SYNCYTIAL VIR NAA NEGATIVE (NEGATIVE)
[2022-07-25 10:57] LABS: CARBON DIOXIDE,CO2 31.3 mmol/L (21.0-32.0); POTASSIUM,K 3.8 mmol/L (3.5-5.1)
[2022-07-25] MEDS ORDERED: Furosemide 40 MG/4 ML VIAL IVPUSH ONE (12:46)
== END 2022-07-25 13:12 | disposition home or self-care (01) ==
LOC: MW.ED 08:49
DX: I11.0 Hypertensive heart disease with heart failure (principal); I50.9 Heart failure, unspecified; I48.91 Unspecified atrial fibrillation; M19.90 Unspecified osteoarthritis, unspecified site; D64.9 Anemia, unspecified; E66.9 Obesity, unspecified; Z68.41 Body mass index [BMI] 40.0-44.9, adult; Z88.8 Allergy status to other drugs, medicaments and biological substances; Z88.5 Allergy status to narcotic agent; Z91.048 Other nonmedicinal substance allergy status; Z88.0 Allergy status to penicillin; Z88.1 Allergy status to other antibiotic agents; Z88.7 Allergy status to serum and vaccine; Z79.899 Other long term (current) drug therapy; Z20.822 Contact with and (suspected) exposure to COVID-19
CPT/HCPCS: 0241U; 36415; 71045; 80053; 83880; 84484; 85025; 93005; 96374; 99285; J1940; J3490

== ENCOUNTER 2022-08-30 17:02 | Emergency (ER) | payer MEDICARE, BC, OTHER ==
[2022-08-30] MEDS ORDERED: Acetaminophen/HYDROcodone 325-5 MG Tab PO ONE (18:11)
[2022-08-30 19:47] LABS: CARBON DIOXIDE,CO2 29.5 mmol/L (21.0-32.0)
== END 2022-08-30 20:29 | disposition home or self-care (01) ==
LOC: MW.ED 17:02
DX: M79.89 Other specified soft tissue disorders (principal); E66.9 Obesity, unspecified; Z68.41 Body mass index [BMI] 40.0-44.9, adult; Z88.0 Allergy status to penicillin; Z88.1 Allergy status to other antibiotic agents; Z88.7 Allergy status to serum and vaccine; Z88.8 Allergy status to other drugs, medicaments and biological substances; Z91.048 Other nonmedicinal substance allergy status
CPT/HCPCS: 36415; 80053; 85025; 85379; 93971; 99284; A9270; 99283

== ENCOUNTER 2022-10-13 11:31 | Emergency (ER) | payer MEDICARE, BC ==
[2022-10-13] MEDS ORDERED: Sodium Chloride 0.9% 1,000 ML IV ONE (11:33)
[2022-10-13] MEDS ORDERED: Acetaminophen 500 MG Tab PO ONE (11:40)
[2022-10-13 12:11] LABS: CARBON DIOXIDE,CO2 27.2 mmol/L (21.0-32.0); POTASSIUM,K 3.1 mmol/L (3.5-5.1)
[2022-10-13] MEDS ORDERED: Potassium Chloride 20 MEQ Tab.ER PO ONE (12:14)
[2022-10-13] MEDS ORDERED: Magnesium Oxide 400 MG Tab PO ONE (12:14)
[2022-10-13 12:27] LABS: CORONAVIRUS COVID-19 NAA NEGATIVE (NEGATIVE); INFLUENZA A NAA NEGATIVE (NEGATIVE); INFLUENZA B NAA NEGATIVE (NEGATIVE)
[2022-10-13] MEDS ORDERED: Sulfamethoxazole/Trimethoprim 800-160 MG Tab PO ONE (15:08)
== END 2022-10-13 15:33 | disposition home or self-care (01) ==
LOC: MW.ED 11:31
DX: N30.00 Acute cystitis without hematuria (principal); I48.91 Unspecified atrial fibrillation; E66.9 Obesity, unspecified; Z68.41 Body mass index [BMI] 40.0-44.9, adult; Z88.0 Allergy status to penicillin; Z88.1 Allergy status to other antibiotic agents; Z88.7 Allergy status to serum and vaccine; Z91.048 Other nonmedicinal substance allergy status; Z88.8 Allergy status to other drugs, medicaments and biological substances; Z79.899 Other long term (current) drug therapy; Z20.822 Contact with and (suspected) exposure to COVID-19
CPT/HCPCS: 0240U; 36415; 51701; 71045; 80053; 81001; 82803; 83605; 83690; 83735; 83880; 84484; 85025; 87040; 93005; 96360; 99284; A9270; J7030; 93010; 99283

== ENCOUNTER 2022-10-17 09:02 | Emergency (ER) | payer MEDICARE, BC ==
[2022-10-17 10:57] LABS: POTASSIUM,K 3.5 mmol/L (3.5-5.1)
[2022-10-17 10:58] LABS: CARBON DIOXIDE,CO2 31.3 mmol/L (21.0-32.0)
[2022-10-17] MEDS: Acetaminophen 325 MG Tab PO ONE (14:13)
[2022-10-17] MEDS: Sodium Chloride 0.9% 500 ML IV SCH (15:26)
== END 2022-10-17 18:43 | disposition home or self-care (01) ==
LOC: MW.ED 09:02
DX: M25.512 Pain in left shoulder (principal); I48.91 Unspecified atrial fibrillation; Z88.0 Allergy status to penicillin; Z88.1 Allergy status to other antibiotic agents; Z88.7 Allergy status to serum and vaccine; Z91.048 Other nonmedicinal substance allergy status; Z88.8 Allergy status to other drugs, medicaments and biological substances; W18.30XA Fall on same level, unspecified, initial encounter; Y92.009 Unspecified place in unspecified non-institutional (private) residence as the place of occurrence of the external cause
CPT/HCPCS: 36415; 70450; 73030; 73120; 80053; 81001; 85025; 87086; 93005; 96360; 99284; A9270; J7040; 93010; 99283

== ENCOUNTER 2023-03-31 07:12 | Emergency (ER) | payer MEDICARE, BC ==
[2023-03-31 07:33] LABS: BASOPHILS PERCENT AUTO 0.3 % (0.0-1.5); EOSINOPHILS ABSOLUTE AUTO 0.3 K/uL (0.0-0.7); EOSINOPHILS PERCENT AUTO 3.9 % (0.0-7.0); HEMOGLOBIN 10.8 g/dL (12.0-16.0); LYMPHOCYTES ABSOLUTE AUTO 2.3 K/uL (0.6-2.4); LYMPHOCYTES PERCENT AUTO 35.9 % (16.0-40.0); MEAN CORPUSCULAR HEMOGLOBIN 31.2 pg (27.0-32.0); MEAN CORPUSCULAR HGB CONC 31.8 g/dL (31.0-37.0); MEAN CORPUSCULAR VOLUME 98.3 fL (80.0-98.0); MONOCYTES ABSOLUTE AUTO 0.6 K/uL (0.0-0.8); MONOCYTES PERCENT AUTO 8.9 % (0.0-15.0); NEUTROPHILS ABSOLUTE AUTO 3.3 K/uL (1.4-5.7); NRBC ABSOLUTE 0 K/uL; PLATELET COUNT,PLT 165 K/uL (150-400); RED BLOOD CELL COUNT 3.46 M/uL (4.30-5.90); WHITE BLOOD CELL COUNT,WBC 6.44 K/uL (4.0-11.0)
[2023-03-31 07:52] LABS: A/G RATIO 0.8 (0.9-1.6); BILIRUBIN TOTAL 0.3 mg/dL (0.2-1.0); CALCIUM 8.9 mg/dL (8.5-10.1); CARBON DIOXIDE,CO2 29.8 mmol/L (21.0-32.0); CREATININE 2.1 mg/dL (0.6-1.0); EST CRCL DRUG DOSING (CG) 24.19 mL/min; MAGNESIUM 1.8 mg/dL (1.8-2.4); POTASSIUM,K 3.5 mmol/L (3.5-5.1); PROTEIN TOTAL,TP 6.7 g/dL (6.4-8.2)
[2023-03-31 09:02] LABS: APPEARANCE,URINE CLOUDY; BILIRUBIN,URINE NEGATIVE (NEGATIVE); COLOR,URINE YELLOW; GLUCOSE,URINE NEGATIVE (NEGATIVE); KETONES,URINE NEGATIVE (NEGATIVE); LEUKOCYTE ESTERASE,URINE LARGE (NEGATIVE); NITRITE,URINE POSITIVE (NEGATIVE); OCCULT BLOOD,URINE TRACE-INTACT (NEGATIVE); PROTEIN,URINE NEGATIVE (NEGATIVE); UROBILINOGEN,URINE 0.2 EU/dL (<2.0)
[2023-03-31] MEDS ORDERED: Lidocaine 4% 1 each Patch TOP STA (09:07)
[2023-03-31] MEDS ORDERED: Acetaminophen 325 MG Tab PO ONE (09:07)
[2023-03-31 09:09] LABS: BACTERIA,URINE 4+ (NEGATIVE); EPITHELIAL CELLS,URINE FEW (NONE-FEW); WBC,URINE 40-50 (0-5/HPF)
[2023-03-31] MEDS ORDERED: cefTRIAXone 1 GM in Sodium Chloride 0.9% 50 ML IV ONE (09:23)
== END 2023-03-31 11:45 | disposition home or self-care (01) ==
LOC: MW.ED 07:12
DX: S00.81XA Abrasion of other part of head, initial encounter (principal); R51.9 Headache, unspecified; M25.512 Pain in left shoulder; M79.642 Pain in left hand; M25.552 Pain in left hip; M25.562 Pain in left knee; I48.91 Unspecified atrial fibrillation; I11.0 Hypertensive heart disease with heart failure; I50.9 Heart failure, unspecified; E66.9 Obesity, unspecified; Z68.39 Body mass index [BMI] 39.0-39.9, adult; Z88.0 Allergy status to penicillin; Z88.1 Allergy status to other antibiotic agents; Z88.7 Allergy status to serum and vaccine; Z88.8 Allergy status to other drugs, medicaments and biological substances; Z91.048 Other nonmedicinal substance allergy status; Z79.899 Other long term (current) drug therapy; W18.30XA Fall on same level, unspecified, initial encounter
CPT/HCPCS: 36415; 70450; 72125; 73030; 73120; 73502; 73560; 80053; 81001; 82550; 83735; 84484; 85025; 87086; 93005; 96365; 99284; A9270; J0696; J3490; 93010

== ENCOUNTER 2023-07-10 19:49 | Emergency (ER) | payer MEDICARE, BC ==
[2023-07-10] MEDS ORDERED: Sodium Chloride 0.9% 2.5 ML Syringe FLUSH PRN (19:51)
[2023-07-10] MEDS ORDERED: Sodium Chloride 0.9% 10 ML Syringe FLUSH PRN (19:51)
[2023-07-10] MEDS ORDERED: Etomidate 2 MG/ML 10 ML SDV IVPUSH ONE (19:55)
[2023-07-10] MEDS ORDERED: Rocuronium 50 MG/5 ML Vial IV ONE (19:56)
[2023-07-10 19:59] LABS: BASOPHILS ABSOLUTE AUTO 0.02 K/uL (0.00-0.20); BASOPHILS PERCENT AUTO 0.2 % (0.0-1.0); EOSINOPHILS ABSOLUTE AUTO 0.02 K/uL (0.00-0.45); EOSINOPHILS PERCENT AUTO 0.2 % (0.0-6.0); HEMATOCRIT 34.2 % (37.0-47.0); HEMOGLOBIN 11.1 g/dL (12.0-16.0); IMMATURE GRAN ABSOLUTE AUTO 0.04 K/uL (0.00-0.05); IMMATURE GRAN PERCENT AUTO 0.3 % (0.0-0.4); LYMPHOCYTES ABSOLUTE AUTO 1.12 K/uL (1.00-4.80); LYMPHOCYTES PERCENT AUTO 8.4 % (24.0-44.0); MEAN CORPUSCULAR HEMOGLOBIN 31.7 pg (28.0-32.0); MEAN CORPUSCULAR HGB CONC 32.5 g/dL (32.0-36.0); MEAN CORPUSCULAR VOLUME 97.7 fL (83.0-99.0); MEAN PLATELET VOLUME 10.3 fL (9.4-12.3); MONOCYTES ABSOLUTE AUTO 0.25 K/uL (0.00-0.80); MONOCYTES PERCENT AUTO 1.9 % (0.0-8.0); NEUTROPHILS ABSOLUTE AUTO 11.84 K/uL (1.80-7.70); PLATELET COUNT,PLT 176 K/uL (150-400); WHITE BLOOD CELL COUNT,WBC 13.29 K/uL (3.9-11.3)
[2023-07-10] MEDS: propofoL 100 ML IV SCH (20:00)
[2023-07-10 20:12] LABS: INR 0.96 (0.86-1.11); PTT,PARTIAL THROMBOPLSTIN TIME 22.3 SEC (23.9-30.7)
[2023-07-10 20:29] LABS: A/G RATIO 0.8 (0.9-1.6); ALANINE AMINOTRANSFERASE,ALT 46 IU/L (14-63); ALBUMIN 3.3 g/dL (3.4-5.0); ALKALINE PHOSPHATASE 109 U/L (46-116); ASPARTATE AMNIOTRANSFERASE,AST 53 IU/L (15-37); BILIRUBIN TOTAL 0.3 mg/dL (0.2-1.0); BLOOD UREA NITROGEN,BUN 48 mg/dL (7.0-18.0); CALCIUM 6.9 mg/dL (8.5-10.1); CARBON DIOXIDE,CO2 29.9 mmol/L (21.0-32.0); CHLORIDE,CL 102 mmol/L (98-107); CREATINE KINASE,CK 110 U/L (26-308); CREATININE 2.2 mg/dL (0.6-1.0); EST CRCL DRUG DOSING (CG) 22.73 mL/min; ETHANOL BLOOD MEDICAL <3 mg/dL; GLUCOSE RANDOM 240 mg/dL (74-106); POTASSIUM,K 4.2 mmol/L (3.5-5.1); PROTEIN TOTAL,TP 7.6 g/dL (6.4-8.2); SODIUM,NA 140 mmol/L (136-145)
[2023-07-10 20:30] LABS: ESTIMATED GFR 23 mL/min (>60)
[2023-07-10] MEDS ORDERED: Iopamidol 755 MG/ML 500 ML Multipack Bottle IVPUSH ONE (20:32)
[2023-07-10] MEDS ORDERED: Tenecteplase 50 MG Kit IVPUSH ONE (21:07)
[2023-07-10] MEDS ORDERED: fentaNYL 100 MCG/2 ML SDV IVPUSH ONE (21:12)
[2023-07-10] MEDS ORDERED: Sodium Chloride 0.9% 500 ML IV SCH (21:30)
[2023-07-10 21:37] LABS: APPEARANCE,URINE CLOUDY; BILIRUBIN,URINE NEGATIVE (NEGATIVE); COLOR,URINE YELLOW; GLUCOSE,URINE NEGATIVE (NEGATIVE); KETONES,URINE NEGATIVE (NEGATIVE); LEUKOCYTE ESTERASE,URINE MODERATE (NEGATIVE); NITRITE,URINE POSITIVE (NEGATIVE); OCCULT BLOOD,URINE TRACE-INTACT (NEGATIVE); PROTEIN,URINE NEGATIVE (NEGATIVE); UROBILINOGEN,URINE 0.2 EU/dL (<2.0)
[2023-07-10 21:47] LABS: MUCUS,URINE LIGHT (NONE-MOD); SQUAMOUS EPITHELIAL CELLS,UR FEW; WBC,URINE >100 (0-5/HPF)
[2023-07-10 21:54] LABS: AMPHETAMINES SCREEN, URINE NEGATIVE (CUTOFF=500); BARBITURATE SCREEN,URINE NEGATIVE (CUTOFF=200); BENZODIAZEPINES SCREEN,URINE NEGATIVE (CUTOFF=150); BUPRENORPHINE SCREEN,URINE NEGATIVE (CUTOFF=10); METHADONE SCREEN, URINE NEGATIVE (CUTOFF=200); METHAMPHETAMINES SCREEN, URINE NEGATIVE (CUTOFF=500); OXYCODONE SCREEN,URINE PRESUMPTIVE POSITIVE (CUT0FF=100); PCP SCREEN,URINE NEGATIVE (CUTOFF=25); THC SCREEN,URINE 20 NG/ML NEGATIVE (CUTOFF=50)
[2023-07-11] MEDS: propofoL 100 ML IV SCH (00:05)
== END 2023-07-11 01:30 ==
LOC: MW.ED 19:49
DX: I63.9 Cerebral infarction, unspecified (principal); I50.9 Heart failure, unspecified; I48.91 Unspecified atrial fibrillation; E66.9 Obesity, unspecified; Z90.49 Acquired absence of other specified parts of digestive tract; Z90.710 Acquired absence of both cervix and uterus; Z79.899 Other long term (current) drug therapy; Z88.1 Allergy status to other antibiotic agents; Z88.0 Allergy status to penicillin; Z88.8 Allergy status to other drugs, medicaments and biological substances; Z88.5 Allergy status to narcotic agent; Z91.048 Other nonmedicinal substance allergy status; Z88.6 Allergy status to analgesic agent; Z88.7 Allergy status to serum and vaccine
CPT/HCPCS: 31500; 36415; 70450; 71045; 80053; 80305; 80307; 81001; 82550; 84484; 85025; 85610; 85730; 86850; 86900; 86901; 87086; 92977; 96374; 99291; 99292; J2704; J3010; J3101; J3490; J7040; 87088; 87186; 93010

== ENCOUNTER 2023-09-18 08:11 | Emergency (ER) | payer MEDICARE, BC, OTHER | END 2023-09-18 11:27 | disposition home or self-care (01) | LOC: MW.ED 08:11 | DX: S70.12XA Contusion of left thigh, initial encounter (principal); I48.91 Unspecified atrial fibrillation; I50.9 Heart failure, unspecified; E66.9 Obesity, unspecified; Z79.01 Long term (current) use of anticoagulants; Z79.899 Other long term (current) drug therapy; Z88.8 Allergy status to other drugs, medicaments and biological substances; Z88.0 Allergy status to penicillin; Z88.1 Allergy status to other antibiotic agents; Z88.7 Allergy status to serum and vaccine; Z91.048 Other nonmedicinal substance allergy status; Z68.42 Body mass index [BMI] 45.0-49.9, adult; X50.1XXA Overexertion from prolonged static or awkward postures, initial encounter | CPT/HCPCS: 72170; 72170-26; 73552-50; 735525026; 735602650; 73560-50; 735902650; 73590-50; 736002650; 73600-50; 736202650; 73620-50; 99283 ==

== ENCOUNTER 2024-01-14 16:11 | Inpatient (IN) | payer MEDICARE, BC ==
[2024-01-14] MEDS ORDERED: Sodium Chloride 0.9% 20 ML SDV IV PRN (16:57)
[2024-01-14] MEDS ORDERED: Sodium Chloride 0.9% 2.5 ML Syringe FLUSH PRN (16:57)
[2024-01-14] MEDS ORDERED: Sodium Chloride 0.9% 10 ML Syringe FLUSH PRN (16:57)
[2024-01-14 17:12] LABS: BASE EXCESS VENOUS 3.6 (-2.0-3.0); BICARBONATE,VENOUS 30 mEQ/mL (22-28); PCO2 VENOUS 56 mmHG (41-51); PH,VENOUS 7.34 (7.31-7.41)
[2024-01-14 17:14] LABS: BASOPHILS ABSOLUTE AUTO 0.02 K/uL (0.00-0.20); BASOPHILS PERCENT AUTO 0.2 % (0.0-1.0); EOSINOPHILS ABSOLUTE AUTO 0.16 K/uL (0.00-0.45); EOSINOPHILS PERCENT AUTO 1.9 % (0.0-6.0); HEMATOCRIT 30.4 % (37.0-47.0); HEMOGLOBIN 9.4 g/dL (12.0-16.0); IMMATURE GRAN ABSOLUTE AUTO 0.02 K/uL (0.00-0.05); IMMATURE GRAN PERCENT AUTO 0.2 % (0.0-0.4); LYMPHOCYTES ABSOLUTE AUTO 1.37 K/uL (1.00-4.80); LYMPHOCYTES PERCENT AUTO 16.5 % (24.0-44.0); MEAN CORPUSCULAR HEMOGLOBIN 28.9 pg (28.0-32.0); MEAN CORPUSCULAR HGB CONC 30.9 g/dL (32.0-36.0); MEAN CORPUSCULAR VOLUME 93.5 fL (83.0-99.0); MEAN PLATELET VOLUME 10.1 fL (9.4-12.3); MONOCYTES ABSOLUTE AUTO 0.58 K/uL (0.00-0.80); NEUTROPHILS ABSOLUTE AUTO 6.17 K/uL (1.80-7.70); NEUTROPHILS PERCENT AUTO 74.2 % (41.0-71.0); PLATELET COUNT,PLT 165 K/uL (150-400); PO2 VENOUS < 30 mmHG (35-45); RED BLOOD CELL COUNT 3.25 M/uL (4.10-5.30); WHITE BLOOD CELL COUNT,WBC 8.32 K/uL (3.9-11.3)
[2024-01-14 17:54] LABS: A/G RATIO 0.6 (0.9-1.6); ALBUMIN 2.9 g/dL (3.4-5.0); BILIRUBIN TOTAL 0.4 mg/dL (0.2-1.0); CALCIUM 6.3 mg/dL (8.5-10.1); CARBON DIOXIDE,CO2 28.7 mmol/L (21.0-32.0); CREATININE 1.9 mg/dL (0.6-1.0); EST CRCL DRUG DOSING (CG) 25.41 mL/min; MAGNESIUM 2.3 mg/dL (1.8-2.4); POTASSIUM,K 3.1 mmol/L (3.5-5.1); PROTEIN TOTAL,TP 7.5 g/dL (6.4-8.2)
[2024-01-14] MEDS: Ondansetron 4 MG/2 ML SDV IVPUSH ONE (18:01)
[2024-01-14] MEDS: Morphine 2 MG/ML SYRINGE IVPUSH ONE (18:02)
[2024-01-14] MEDS: Albuterol/Ipratropium 3.0-0.5 MG/3 ML Neb Soln NEB ONE (18:22)
[2024-01-14 19:07] LABS: INR 1.5 (0.86-1.11)
[2024-01-14] MEDS: Potassium Chloride 10% 20 MEQ/15 ML Soln 15 ML UD Cup PO ONE (19:19)
[2024-01-14] MEDS: Clindamycin Phosphate in D5W 600 MG in Premix Bag 1 BAG IV ONE (19:19)
[2024-01-14 21:03] LABS: APPEARANCE,URINE CLEAR; BILIRUBIN,URINE NEGATIVE (NEGATIVE); COLOR,URINE YELLOW; GLUCOSE,URINE NEGATIVE (NEGATIVE); KETONES,URINE NEGATIVE (NEGATIVE); LEUKOCYTE ESTERASE,URINE SMALL (NEGATIVE); NITRITE,URINE POSITIVE (NEGATIVE); OCCULT BLOOD,URINE TRACE-INTACT (NEGATIVE); PROTEIN,URINE NEGATIVE (NEGATIVE); UROBILINOGEN,URINE 0.2 EU/dL (<2.0)
[2024-01-14 21:22] LABS: BACTERIA,URINE 2+ (NEGATIVE); EPITHELIAL CELLS,URINE RARE (NONE-FEW)
[2024-01-14] MEDS: Levofloxacin/Dextrose 5%-Water 750 MG in Premix Bag 1 BAG IV SCH (23:30)
[2024-01-15 00:18] LABS: CALCIUM 6.1 mg/dL (8.5-10.1); CARBON DIOXIDE,CO2 30.6 mmol/L (21.0-32.0); CREATININE 1.8 mg/dL (0.6-1.0); EST CRCL DRUG DOSING (CG) 24.18 mL/min; POTASSIUM,K 3.6 mmol/L (3.5-5.1)
[2024-01-15 00:19] LABS: INR 1.54 (0.86-1.11)
[2024-01-15] MEDS: Clindamycin HCl 150 MG Cap PO SCH (00:57)
[2024-01-15] MEDS: Warfarin 5 MG Tab PO ONE ×2 (00:57→15:03)
[2024-01-15] MEDS ORDERED: Naloxone 0.4 MG/ML SDV IVPUSH PRN (03:02)
[2024-01-15] MEDS ORDERED: Ondansetron 4 MG/2 ML SDV IVPUSH PRN (03:04)
[2024-01-15] MEDS: Morphine 2 MG/ML SYRINGE IVPUSH PRN (03:38)
[2024-01-15 06:01] LABS: BASOPHILS ABSOLUTE AUTO 0.01 K/uL (0.00-0.20); BASOPHILS PERCENT AUTO 0.2 % (0.0-1.0); EOSINOPHILS ABSOLUTE AUTO 0.11 K/uL (0.00-0.45); EOSINOPHILS PERCENT AUTO 1.9 % (0.0-6.0); HEMATOCRIT 27.5 % (37.0-47.0); HEMOGLOBIN 8.4 g/dL (12.0-16.0); IMMATURE GRAN ABSOLUTE AUTO 0.03 K/uL (0.00-0.05); IMMATURE GRAN PERCENT AUTO 0.5 % (0.0-0.4); LYMPHOCYTES ABSOLUTE AUTO 1.06 K/uL (1.00-4.80); LYMPHOCYTES PERCENT AUTO 17.8 % (24.0-44.0); MEAN CORPUSCULAR HEMOGLOBIN 29.3 pg (28.0-32.0); MEAN CORPUSCULAR HGB CONC 30.5 g/dL (32.0-36.0); MEAN CORPUSCULAR VOLUME 95.8 fL (83.0-99.0); MEAN PLATELET VOLUME 10.4 fL (9.4-12.3); MONOCYTES PERCENT AUTO 8.4 % (0.0-8.0); NEUTROPHILS ABSOLUTE AUTO 4.23 K/uL (1.80-7.70); NEUTROPHILS PERCENT AUTO 71.2 % (41.0-71.0); PLATELET COUNT,PLT 141 K/uL (150-400); RED BLOOD CELL COUNT 2.87 M/uL (4.10-5.30); WHITE BLOOD CELL COUNT,WBC 5.94 K/uL (3.9-11.3)
[2024-01-15 06:20] LABS: CALCIUM 5.8 mg/dL (8.5-10.1); CARBON DIOXIDE,CO2 29.7 mmol/L (21.0-32.0); CREATININE 1.8 mg/dL (0.6-1.0); EST CRCL DRUG DOSING (CG) 24.18 mL/min; POTASSIUM,K 3.7 mmol/L (3.5-5.1)
[2024-01-15] MEDS: Metoprolol Succinate 100 MG Tab.ER PO SCH (08:48)
[2024-01-15] MEDS: Potassium Chloride 20 MEQ Tab.ER PO ONE ×2 (09:49→12:55)
[2024-01-15] MEDS: Furosemide 40 MG/4 ML VIAL IVPUSH SCH (10:06)
[2024-01-15] MEDS ORDERED: Sodium Chloride 0.9% 2.5 ML Syringe FLUSH PRN (10:22)
[2024-01-15] MEDS ORDERED: Sodium Chloride 0.9% 10 ML Syringe FLUSH PRN (10:22)
[2024-01-15] MEDS: Acetaminophen 325 MG Tab PO PRN (12:59)
[2024-01-15] MEDS: Warfarin 5 MG Tab PO SCH (13:07)
[2024-01-15] MEDS ORDERED: Cyclobenzaprine 10 MG Tab PO PRN (14:41)
[2024-01-15] MEDS: rOPINIRole 1 MG Tab PO SCH (15:03)
[2024-01-15] MEDS: Gabapentin 100 MG Cap PO SCH (15:04)
[2024-01-15] MEDS: Warfarin Sliding Scale PO SCH (15:05)
[2024-01-15] MEDS: Latanoprost 0.005% Ophth Soln 2.5 ML Bottle EYERT SCH (21:58)
[2024-01-15] MEDS: atorvaSTATin 20 MG Tab PO SCH (21:58)
[2024-01-15] MEDS: traMADol 50 MG Tab PO SCH (21:59)
[2024-01-16 06:14] LABS: BASOPHILS ABSOLUTE AUTO 0.01 K/uL (0.00-0.20); BASOPHILS PERCENT AUTO 0.1 % (0.0-1.0); EOSINOPHILS ABSOLUTE AUTO 0.13 K/uL (0.00-0.45); EOSINOPHILS PERCENT AUTO 1.8 % (0.0-6.0); HEMATOCRIT 26.3 % (37.0-47.0); HEMOGLOBIN 8.2 g/dL (12.0-16.0); IMMATURE GRAN ABSOLUTE AUTO 0.01 K/uL (0.00-0.05); IMMATURE GRAN PERCENT AUTO 0.1 % (0.0-0.4); LYMPHOCYTES PERCENT AUTO 17.6 % (24.0-44.0); MEAN CORPUSCULAR HEMOGLOBIN 29.4 pg (28.0-32.0); MEAN CORPUSCULAR HGB CONC 31.2 g/dL (32.0-36.0); MEAN CORPUSCULAR VOLUME 94.3 fL (83.0-99.0); MEAN PLATELET VOLUME 10.2 fL (9.4-12.3); MONOCYTES ABSOLUTE AUTO 0.53 K/uL (0.00-0.80); MONOCYTES PERCENT AUTO 7.2 % (0.0-8.0); NEUTROPHILS ABSOLUTE AUTO 5.39 K/uL (1.80-7.70); NEUTROPHILS PERCENT AUTO 73.2 % (41.0-71.0); PLATELET COUNT,PLT 146 K/uL (150-400); RED BLOOD CELL COUNT 2.79 M/uL (4.10-5.30); WHITE BLOOD CELL COUNT,WBC 7.37 K/uL (3.9-11.3)
[2024-01-16 06:32] LABS: INR 2.23 (0.86-1.11)
[2024-01-16 06:43] LABS: CALCIUM 5.8 mg/dL (8.5-10.1); CARBON DIOXIDE,CO2 29.3 mmol/L (21.0-32.0); CREATININE 2.2 mg/dL (0.6-1.0); EST CRCL DRUG DOSING (CG) 19.86 mL/min; MAGNESIUM 1.9 mg/dL (1.8-2.4); POTASSIUM,K 3.6 mmol/L (3.5-5.1)
[2024-01-16] MEDS: Empagliflozin 10 MG Tab PO SCH (08:53)
[2024-01-16] MEDS: Cholecalciferol (Vitamin D3) 25 MCG Tab PO SCH (08:54)
[2024-01-16] MEDS: Allopurinol 100 MG Tab PO SCH (08:55)
[2024-01-16] MEDS: Potassium Chloride 20 MEQ Tab.ER PO SCH (08:56)
[2024-01-16] MEDS ORDERED: Gabapentin 300 MG Cap PO SCH (14:00)
== END 2024-01-16 13:30 | disposition home or self-care (01) | DRG 602 ==
LOC: MW.ED 16:11 → MW.MS 19:25 → OBSVTOIN 01-15 10:23 → MW.MS 01-16 08:52
PROVIDERS: ADMIT Internal Medicine; ATTEND Internal Medicine
DX: L03.116 Cellulitis of left lower limb (principal); I50.33 Acute on chronic diastolic (congestive) heart failure; I48.11 Longstanding persistent atrial fibrillation; I13.0 Hypertensive heart and chronic kidney disease with heart failure and stage 1 through stage 4 chronic kidney disease, or unspecified chronic kidney disease; I50.9 Heart failure, unspecified; N18.9 Chronic kidney disease, unspecified; N30.00 Acute cystitis without hematuria; Z68.41 Body mass index [BMI] 40.0-44.9, adult; I87.2 Venous insufficiency (chronic) (peripheral); L03.115 Cellulitis of right lower limb; Z91.041 Radiographic dye allergy status; Z91.048 Other nonmedicinal substance allergy status; E66.9 Obesity, unspecified; M81.0 Age-related osteoporosis without current pathological fracture; M19.90 Unspecified osteoarthritis, unspecified site; E87.6 Hypokalemia; N18.30 Chronic kidney disease, stage 3 unspecified; Z88.0 Allergy status to penicillin; Z88.1 Allergy status to other antibiotic agents; Z88.2 Allergy status to sulfonamides; Z88.7 Allergy status to serum and vaccine; Z88.8 Allergy status to other drugs, medicaments and biological substances; Z79.01 Long term (current) use of anticoagulants; Z90.49 Acquired absence of other specified parts of digestive tract; Z90.710 Acquired absence of both cervix and uterus; Z98.890 Other specified postprocedural states; Z96.619 Presence of unspecified artificial shoulder joint; Z79.899 Other long term (current) drug therapy; Z98.84 Bariatric surgery status
CPT/HCPCS: 36415 ×2; 71045; 80048 ×2; 80053; 81001; 82803; 83735; 85025 ×2; 85610 ×2; 87086; 93306; 96374; 96375; 99285; A9270 ×6; J0736; J1940; J1956; J2270 ×2; J2405; 87088; 87186; 93005; 96365; 96367; 96376; G0378; J7620-GY

== ENCOUNTER 2024-02-24 14:36 | Emergency (ER) | payer MEDICARE, BC ==
[2024-02-24 14:55] LABS: BASOPHILS ABSOLUTE AUTO 0.02 K/uL (0.00-0.20); BASOPHILS PERCENT AUTO 0.3 % (0.0-1.0); EOSINOPHILS ABSOLUTE AUTO 0.15 K/uL (0.00-0.45); HEMATOCRIT 32.3 % (37.0-47.0); HEMOGLOBIN 10.1 g/dL (12.0-16.0); IMMATURE GRAN ABSOLUTE AUTO 0.03 K/uL (0.00-0.05); IMMATURE GRAN PERCENT AUTO 0.4 % (0.0-0.4); LYMPHOCYTES ABSOLUTE AUTO 1.86 K/uL (1.00-4.80); LYMPHOCYTES PERCENT AUTO 24.5 % (24.0-44.0); MEAN CORPUSCULAR HEMOGLOBIN 27.8 pg (28.0-32.0); MEAN CORPUSCULAR HGB CONC 31.3 g/dL (32.0-36.0); MEAN PLATELET VOLUME 10.1 fL (9.4-12.3); MONOCYTES ABSOLUTE AUTO 0.42 K/uL (0.00-0.80); MONOCYTES PERCENT AUTO 5.5 % (0.0-8.0); NEUTROPHILS ABSOLUTE AUTO 5.12 K/uL (1.80-7.70); NEUTROPHILS PERCENT AUTO 67.3 % (41.0-71.0); PLATELET COUNT,PLT 215 K/uL (150-400); RED BLOOD CELL COUNT 3.63 M/uL (4.10-5.30)
[2024-02-24] MEDS: Morphine 4 MG/ML Syringe IVPUSH ONE (14:59)
[2024-02-24 15:11] LABS: INR 1.22 (0.86-1.11)
[2024-02-24 15:22] LABS: CALCIUM 7.2 mg/dL (8.5-10.1); CARBON DIOXIDE,CO2 32.3 mmol/L (21.0-32.0); CREATININE 1.9 mg/dL (0.6-1.0); EST CRCL DRUG DOSING (CG) 25.41 mL/min
[2024-02-24] MEDS: Potassium Chloride 20 MEQ Tab.ER PO ONE (15:35)
[2024-02-24] MEDS: Acetaminophen/HYDROcodone 325-5 MG Tab PO ONE (16:04)
== END 2024-02-24 16:18 | disposition home or self-care (01) ==
LOC: MW.ED 14:36
DX: R52 Pain, unspecified (principal); I48.91 Unspecified atrial fibrillation; I50.9 Heart failure, unspecified; J44.9 Chronic obstructive pulmonary disease, unspecified; E66.9 Obesity, unspecified; Z90.49 Acquired absence of other specified parts of digestive tract; Z90.710 Acquired absence of both cervix and uterus; Z79.01 Long term (current) use of anticoagulants; Z79.899 Other long term (current) drug therapy; Z88.0 Allergy status to penicillin; Z88.2 Allergy status to sulfonamides; Z88.7 Allergy status to serum and vaccine; Z91.041 Radiographic dye allergy status; Z91.048 Other nonmedicinal substance allergy status; Z88.8 Allergy status to other drugs, medicaments and biological substances; Z88.1 Allergy status to other antibiotic agents; Z68.41 Body mass index [BMI] 40.0-44.9, adult; W19.XXXA Unspecified fall, initial encounter; Y92.002 Bathroom of unspecified non-institutional (private) residence as the place of occurrence of the external cause
CPT/HCPCS: 36415; 80048; 82550; 85025; 85610; 96374; 99283; A9270; J2270

== ENCOUNTER 2024-06-18 12:24 | Emergency (ER) | payer MEDICARE, BC ==
[2024-06-18 13:34] LABS: INR 1.94 (0.86-1.11)
== END 2024-06-18 16:25 | disposition home or self-care (01) ==
LOC: MW.ED 12:24
DX: S09.90XA Unspecified injury of head, initial encounter (principal); I48.91 Unspecified atrial fibrillation; J44.9 Chronic obstructive pulmonary disease, unspecified; I50.9 Heart failure, unspecified; E66.9 Obesity, unspecified; I83.12 Varicose veins of left lower extremity with inflammation; I83.11 Varicose veins of right lower extremity with inflammation; Z90.49 Acquired absence of other specified parts of digestive tract; Z79.01 Long term (current) use of anticoagulants; Z79.899 Other long term (current) drug therapy; Z88.0 Allergy status to penicillin; Z88.1 Allergy status to other antibiotic agents; Z88.2 Allergy status to sulfonamides; Z88.8 Allergy status to other drugs, medicaments and biological substances; Z88.5 Allergy status to narcotic agent; Z91.048 Other nonmedicinal substance allergy status; Z91.041 Radiographic dye allergy status; W18.12XA Fall from or off toilet with subsequent striking against object, initial encounter; Y92.002 Bathroom of unspecified non-institutional (private) residence as the place of occurrence of the external cause; Z75.8 Other problems related to medical facilities and other health care; Z68.43 Body mass index [BMI] 50.0-59.9, adult
CPT/HCPCS: 36415; 70450; 70450-26; 70486; 70486-26; 73030-26-LT; 73030-LT; 85610; 99283; 99284

== ENCOUNTER 2024-06-25 18:47 | Emergency (ER) | payer MEDICARE, BC ==
[2024-06-25 19:27] LABS: BASOPHILS ABSOLUTE AUTO 0.03 K/uL (0.00-0.20); BASOPHILS PERCENT AUTO 0.3 % (0.0-1.0); EOSINOPHILS ABSOLUTE AUTO 0.25 K/uL (0.00-0.45); EOSINOPHILS PERCENT AUTO 2.9 % (0.0-6.0); HEMATOCRIT 30.7 % (37.0-47.0); HEMOGLOBIN 9.6 g/dL (12.0-16.0); IMMATURE GRAN ABSOLUTE AUTO 0.02 K/uL (0.00-0.05); IMMATURE GRAN PERCENT AUTO 0.2 % (0.0-0.4); LYMPHOCYTES ABSOLUTE AUTO 1.22 K/uL (1.00-4.80); LYMPHOCYTES PERCENT AUTO 13.9 % (24.0-44.0); MEAN CORPUSCULAR HEMOGLOBIN 29.1 pg (28.0-32.0); MEAN CORPUSCULAR HGB CONC 31.3 g/dL (32.0-36.0); MEAN PLATELET VOLUME 9.2 fL (9.4-12.3); MONOCYTES PERCENT AUTO 6.9 % (0.0-8.0); NEUTROPHILS ABSOLUTE AUTO 6.63 K/uL (1.80-7.70); NEUTROPHILS PERCENT AUTO 75.8 % (41.0-71.0); PLATELET COUNT,PLT 172 K/uL (150-400); WHITE BLOOD CELL COUNT,WBC 8.75 K/uL (3.9-11.3)
[2024-06-25] MEDS: Furosemide 40 MG/4 ML VIAL IVPUSH ONE (19:28)
[2024-06-25 19:43] LABS: BLOOD UREA NITROGEN,BUN 48 mg/dL (7.0-18.0); CALCIUM 9.2 mg/dL (8.5-10.1); CARBON DIOXIDE,CO2 34.8 mmol/L (21.0-32.0); CHLORIDE,CL 101 mmol/L (98-107); CREATININE 2.5 mg/dL (0.6-1.0); ESTIMATED GFR 19 mL/min (>60); GLUCOSE RANDOM 117 mg/dL (74-106); POTASSIUM,K 2.9 mmol/L (3.5-5.1); SODIUM,NA 142 mmol/L (136-145)
[2024-06-25] MEDS: Potassium Chloride 20 MEQ Tab.ER PO ONE (20:04)
[2024-06-25] MEDS: Potassium Chloride 20 MEQ in Premix Bag 1 BAG IV ONE (20:16)
== END 2024-06-25 22:24 | disposition home or self-care (01) ==
LOC: MW.ED 18:47
DX: I83.12 Varicose veins of left lower extremity with inflammation (principal); I83.11 Varicose veins of right lower extremity with inflammation; E87.6 Hypokalemia; D64.9 Anemia, unspecified; I48.91 Unspecified atrial fibrillation; I50.9 Heart failure, unspecified; E66.9 Obesity, unspecified; Z79.899 Other long term (current) drug therapy; Z88.1 Allergy status to other antibiotic agents; Z88.0 Allergy status to penicillin; Z88.2 Allergy status to sulfonamides; Z88.5 Allergy status to narcotic agent; Z88.7 Allergy status to serum and vaccine; Z91.041 Radiographic dye allergy status; Z91.048 Other nonmedicinal substance allergy status
CPT/HCPCS: 36415; 80048; 85025; 96365; 96366; 96375; 99283; A9270; J1940; J3480

== ENCOUNTER 2024-07-09 04:33 | Emergency (ER) | payer MEDICARE, BC ==
[2024-07-09] MEDS ORDERED: Sodium Chloride 0.9% 10 ML Syringe FLUSH PRN (04:44)
[2024-07-09] MEDS ORDERED: Sodium Chloride 0.9% 2.5 ML Syringe FLUSH PRN (04:44)
[2024-07-09 04:50] LABS: BASOPHILS ABSOLUTE AUTO 0.03 K/uL (0.00-0.20); BASOPHILS PERCENT AUTO 0.4 % (0.0-1.0); EOSINOPHILS ABSOLUTE AUTO 0.16 K/uL (0.00-0.45); EOSINOPHILS PERCENT AUTO 1.9 % (0.0-6.0); HEMOGLOBIN 9.5 g/dL (12.0-16.0); IMMATURE GRAN ABSOLUTE AUTO 0.02 K/uL (0.00-0.05); IMMATURE GRAN PERCENT AUTO 0.2 % (0.0-0.4); LYMPHOCYTES ABSOLUTE AUTO 1.75 K/uL (1.00-4.80); LYMPHOCYTES PERCENT AUTO 21.2 % (24.0-44.0); MEAN CORPUSCULAR HEMOGLOBIN 29.1 pg (28.0-32.0); MEAN CORPUSCULAR HGB CONC 31.7 g/dL (32.0-36.0); MEAN PLATELET VOLUME 9.6 fL (9.4-12.3); MONOCYTES ABSOLUTE AUTO 0.59 K/uL (0.00-0.80); MONOCYTES PERCENT AUTO 7.1 % (0.0-8.0); NEUTROPHILS ABSOLUTE AUTO 5.72 K/uL (1.80-7.70); NEUTROPHILS PERCENT AUTO 69.2 % (41.0-71.0); PLATELET COUNT,PLT 277 K/uL (150-400); RED BLOOD CELL COUNT 3.26 M/uL (4.10-5.30); WHITE BLOOD CELL COUNT,WBC 8.27 K/uL (3.9-11.3)
[2024-07-09 04:59] LABS: INR 3.64 (0.86-1.11)
[2024-07-09 05:17] LABS: A/G RATIO 0.7 (0.9-1.6); BILIRUBIN TOTAL 0.4 mg/dL (0.2-1.0); CARBON DIOXIDE,CO2 33.1 mmol/L (21.0-32.0); CREATININE 2.5 mg/dL (0.6-1.0); EST CRCL DRUG DOSING (CG) 16.87 mL/min; POTASSIUM,K 3.1 mmol/L (3.5-5.1); PROTEIN TOTAL,TP 7.5 g/dL (6.4-8.2)
[2024-07-09] MEDS: Iopamidol 755 MG/ML 500 ML Multipack Bottle IVPUSH ONE (05:41)
[2024-07-09] MEDS ORDERED: Naloxone 0.4 MG/ML SDV IVPUSH PRN (06:03)
[2024-07-09] MEDS: Morphine 2 MG/ML SYRINGE IVPUSH ONE (06:10)
[2024-07-09 06:38] LABS: BILIRUBIN,URINE NEGATIVE (NEGATIVE); COLOR,URINE YELLOW; GLUCOSE,URINE NEGATIVE (NEGATIVE); KETONES,URINE NEGATIVE (NEGATIVE); LEUKOCYTE ESTERASE,URINE NEGATIVE (NEGATIVE); NITRITE,URINE NEGATIVE (NEGATIVE); OCCULT BLOOD,URINE NEGATIVE (NEGATIVE); PROTEIN,URINE NEGATIVE (NEGATIVE); UROBILINOGEN,URINE 0.2 EU/dL (<2.0)
[2024-07-09 06:47] LABS: APPEARANCE,URINE HAZY; BACTERIA,URINE FEW (NEGATIVE); EPITHELIAL CELLS,URINE FEW (NONE-FEW); RBC,URINE 0-2 (0-2/HPF)
== END 2024-07-09 06:20 | disposition home or self-care (01) ==
LOC: MW.ED 04:33
DX: R07.89 Other chest pain (principal); I48.91 Unspecified atrial fibrillation; J44.9 Chronic obstructive pulmonary disease, unspecified; I50.9 Heart failure, unspecified; E66.9 Obesity, unspecified; Z68.41 Body mass index [BMI] 40.0-44.9, adult; Z79.01 Long term (current) use of anticoagulants; Z79.899 Other long term (current) drug therapy; Z88.0 Allergy status to penicillin; Z88.1 Allergy status to other antibiotic agents; Z88.2 Allergy status to sulfonamides; Z88.5 Allergy status to narcotic agent; Z88.6 Allergy status to analgesic agent; Z88.7 Allergy status to serum and vaccine; Z88.8 Allergy status to other drugs, medicaments and biological substances; Z91.041 Radiographic dye allergy status; Z91.048 Other nonmedicinal substance allergy status; W01.198A Fall on same level from slipping, tripping and stumbling with subsequent striking against other object, initial encounter
CPT/HCPCS: 36415; 70450; 70486; 71260; 72125; 74177; 80053; 81001; 82550; 83690; 83735; 84484; 85025; 85610; 93005; 96374; 99284; J2270; Q9967

== ENCOUNTER 2024-08-11 15:15 | Emergency (ER) | payer MEDICARE, BC ==
[2024-08-11 16:25] LABS: APPEARANCE,URINE CLEAR; BILIRUBIN,URINE NEGATIVE (NEGATIVE); COLOR,URINE YELLOW; GLUCOSE,URINE NEGATIVE (NEGATIVE); KETONES,URINE NEGATIVE (NEGATIVE); LEUKOCYTE ESTERASE,URINE LARGE (NEGATIVE); NITRITE,URINE POSITIVE (NEGATIVE); OCCULT BLOOD,URINE MODERATE (NEGATIVE); PROTEIN,URINE 30 mg/dL (NEGATIVE); UROBILINOGEN,URINE 0.2 EU/dL (<2.0)
[2024-08-11 16:33] LABS: BACTERIA,URINE MANY (NEGATIVE); EPITHELIAL CELLS,URINE FEW (NONE-FEW); WBC,URINE TOO NUMEROUS TO CT (0-5/HPF)
== END 2024-08-11 17:44 | disposition home or self-care (01) ==
LOC: MW.ED 15:15
DX: S49.91XA Unspecified injury of right shoulder and upper arm, initial encounter (principal); N30.00 Acute cystitis without hematuria; I48.91 Unspecified atrial fibrillation; Z75.8 Other problems related to medical facilities and other health care; Z88.0 Allergy status to penicillin; Z88.1 Allergy status to other antibiotic agents; Z88.2 Allergy status to sulfonamides; Z91.041 Radiographic dye allergy status; Z91.048 Other nonmedicinal substance allergy status; Z88.8 Allergy status to other drugs, medicaments and biological substances; Z79.899 Other long term (current) drug therapy; Z79.01 Long term (current) use of anticoagulants; Z90.49 Acquired absence of other specified parts of digestive tract; Z90.710 Acquired absence of both cervix and uterus; W06.XXXA Fall from bed, initial encounter
CPT/HCPCS: 72131; 72131-26; 73030-26-RT; 73030-RT; 81001; 87086; 87088; 87186; 99284

== ENCOUNTER 2024-08-13 19:23 | Emergency (ER) | payer MEDICARE, BC ==
[2024-08-13 20:07] LABS: BASOPHILS ABSOLUTE AUTO 0.03 K/uL (0.00-0.20); BASOPHILS PERCENT AUTO 0.4 % (0.0-1.0); EOSINOPHILS ABSOLUTE AUTO 0.13 K/uL (0.00-0.45); EOSINOPHILS PERCENT AUTO 1.6 % (0.0-6.0); HEMATOCRIT 24.4 % (37.0-47.0); HEMOGLOBIN 7.6 g/dL (12.0-16.0); IMMATURE GRAN ABSOLUTE AUTO 0.02 K/uL (0.00-0.05); IMMATURE GRAN PERCENT AUTO 0.2 % (0.0-0.4); LYMPHOCYTES ABSOLUTE AUTO 1.76 K/uL (1.00-4.80); LYMPHOCYTES PERCENT AUTO 21.3 % (24.0-44.0); MEAN CORPUSCULAR HEMOGLOBIN 28.4 pg (28.0-32.0); MEAN CORPUSCULAR HGB CONC 31.1 g/dL (32.0-36.0); MEAN PLATELET VOLUME 10.4 fL (9.4-12.3); MONOCYTES ABSOLUTE AUTO 0.67 K/uL (0.00-0.80); MONOCYTES PERCENT AUTO 8.1 % (0.0-8.0); NEUTROPHILS ABSOLUTE AUTO 5.64 K/uL (1.80-7.70); NEUTROPHILS PERCENT AUTO 68.4 % (41.0-71.0); PLATELET COUNT,PLT 195 K/uL (150-400); RED BLOOD CELL COUNT 2.68 M/uL (4.10-5.30); WHITE BLOOD CELL COUNT,WBC 8.25 K/uL (3.9-11.3)
[2024-08-13 20:33] LABS: INR 2.11 (0.86-1.11); PTT,PARTIAL THROMBOPLSTIN TIME 41.7 SEC (23.9-30.7)
[2024-08-13 20:42] LABS: A/G RATIO 0.6 (0.9-1.6); ALBUMIN 2.6 g/dL (3.4-5.0); BILIRUBIN TOTAL 0.5 mg/dL (0.2-1.0); CALCIUM 6.4 mg/dL (8.5-10.1); CARBON DIOXIDE,CO2 28.2 mmol/L (21.0-32.0); CREATININE 2.3 mg/dL (0.6-1.0); EST CRCL DRUG DOSING (CG) 19.18 mL/min; POTASSIUM,K 3.5 mmol/L (3.5-5.1); PROTEIN TOTAL,TP 6.7 g/dL (6.4-8.2)
[2024-08-13] MEDS: FACTOR IX COMPLEX HUMAN IV ONE (22:18)
[2024-08-13] MEDS: HUM PROTHROMBIN CPLX IV ONE (22:18)
[2024-08-13] MEDS: [UNRECOGNIZED DRUG - OTHER] IV ONE (22:18)
[2024-08-13] MEDS: Phytonadione 10 MG in Sodium Chloride 0.9% 50 ML IV ONE (22:27)
[2024-08-13] MEDS: Iopamidol 755 MG/ML 500 ML Multipack Bottle IVPUSH ONE (23:04)
[2024-08-13] MEDS: Pantoprazole 80 MG in Sodium Chloride 0.9% 10 ML IVPUSH ONE (23:16)
== END 2024-08-14 00:30 ==
LOC: MW.ED 19:23
DX: K62.5 Hemorrhage of anus and rectum (principal); E66.9 Obesity, unspecified; Z88.0 Allergy status to penicillin; Z88.2 Allergy status to sulfonamides; Z88.7 Allergy status to serum and vaccine; Z88.8 Allergy status to other drugs, medicaments and biological substances; Z91.041 Radiographic dye allergy status; Z91.048 Other nonmedicinal substance allergy status; Z91.09 Other allergy status, other than to drugs and biological substances; Z79.01 Long term (current) use of anticoagulants; Z79.899 Other long term (current) drug therapy; Z90.49 Acquired absence of other specified parts of digestive tract; Z90.710 Acquired absence of both cervix and uterus; Z68.42 Body mass index [BMI] 45.0-49.9, adult
CPT/HCPCS: 36415; 36430; 51702; 74174; 80053; 83605; 85025; 85610; 85730; 86850; 86900; 86901; 86920; 96365; 96375; 99285; J2470; J3430; J3490; J7168; P9016; Q9967

== ENCOUNTER 2024-09-19 22:53 | Emergency (ER) | payer MEDICARE, BC | END 2024-09-20 01:40 | disposition home or self-care (01) | LOC: MW.ED 22:53 | DX: S16.1XXA Strain of muscle, fascia and tendon at neck level, initial encounter (principal); S00.03XA Contusion of scalp, initial encounter; I48.91 Unspecified atrial fibrillation; J44.9 Chronic obstructive pulmonary disease, unspecified; E66.9 Obesity, unspecified; Z68.42 Body mass index [BMI] 45.0-49.9, adult; Z98.84 Bariatric surgery status; Z90.49 Acquired absence of other specified parts of digestive tract; Z90.710 Acquired absence of both cervix and uterus; Z88.0 Allergy status to penicillin; Z88.1 Allergy status to other antibiotic agents; Z88.8 Allergy status to other drugs, medicaments and biological substances; Z88.7 Allergy status to serum and vaccine; Z91.041 Radiographic dye allergy status; Z91.048 Other nonmedicinal substance allergy status; Z79.01 Long term (current) use of anticoagulants; Z79.899 Other long term (current) drug therapy; W06.XXXA Fall from bed, initial encounter | CPT/HCPCS: 70450; 70450-26; 72125; 72125-26; 99284 ==

== ENCOUNTER 2024-09-22 07:29 | Inpatient (IN) | payer MEDICARE, BC ==
[2024-09-22] MEDS ORDERED: Sodium Chloride 0.9% 10 ML Syringe FLUSH PRN (07:47)
[2024-09-22 07:50] LABS: BASOPHILS ABSOLUTE AUTO 0.03 K/uL (0.00-0.20); BASOPHILS PERCENT AUTO 0.4 % (0.0-1.0); EOSINOPHILS ABSOLUTE AUTO 0.14 K/uL (0.00-0.45); EOSINOPHILS PERCENT AUTO 1.7 % (0.0-6.0); HEMATOCRIT 27.4 % (37.0-47.0); HEMOGLOBIN 8.4 g/dL (12.0-16.0); IMMATURE GRAN ABSOLUTE AUTO 0.12 K/uL (0.00-0.05); IMMATURE GRAN PERCENT AUTO 1.4 % (0.0-0.4); LYMPHOCYTES ABSOLUTE AUTO 1.49 K/uL (1.00-4.80); LYMPHOCYTES PERCENT AUTO 17.8 % (24.0-44.0); MEAN CORPUSCULAR HEMOGLOBIN 26.8 pg (28.0-32.0); MEAN CORPUSCULAR HGB CONC 30.7 g/dL (32.0-36.0); MEAN CORPUSCULAR VOLUME 87.3 fL (83.0-99.0); MEAN PLATELET VOLUME 10.5 fL (9.4-12.3); MONOCYTES ABSOLUTE AUTO 0.69 K/uL (0.00-0.80); MONOCYTES PERCENT AUTO 8.3 % (0.0-8.0); NEUTROPHILS ABSOLUTE AUTO 5.88 K/uL (1.80-7.70); NEUTROPHILS PERCENT AUTO 70.4 % (41.0-71.0); PLATELET COUNT,PLT 228 K/uL (150-400); RED BLOOD CELL COUNT 3.14 M/uL (4.10-5.30); WHITE BLOOD CELL COUNT,WBC 8.35 K/uL (3.9-11.3)
[2024-09-22 08:13] LABS: A/G RATIO 0.7 (0.9-1.6); ALANINE AMINOTRANSFERASE,ALT 12 IU/L (14-63); ALBUMIN 2.9 g/dL (3.4-5.0); ALKALINE PHOSPHATASE 82 U/L (46-116); ASPARTATE AMNIOTRANSFERASE,AST 27 IU/L (15-37); BILIRUBIN TOTAL 0.8 mg/dL (0.2-1.0); BLOOD UREA NITROGEN,BUN 22 mg/dL (7.0-18.0); CALCIUM 6.5 mg/dL (8.5-10.1); CARBON DIOXIDE,CO2 26.2 mmol/L (21.0-32.0); CHLORIDE,CL 103 mmol/L (98-107); CREATININE 2.1 mg/dL (0.6-1.0); GLUCOSE RANDOM 119 mg/dL (74-106); LIPASE 28 U/L (16-77); POTASSIUM,K 4.2 mmol/L (3.5-5.1); SODIUM,NA 141 mmol/L (136-145)
[2024-09-22 08:15] LABS: ESTIMATED GFR 24 mL/min (>60)
[2024-09-22 08:23] LABS: PRO B-TYPE NATRIUR PEPT,BNPPRO 6373 pg/mL (0-450)
[2024-09-22 08:28] LABS: INR 1.19 (0.86-1.11)
[2024-09-22 11:28] LABS: APPEARANCE,URINE CLEAR; BILIRUBIN,URINE NEGATIVE (NEGATIVE); COLOR,URINE YELLOW; GLUCOSE,URINE NEGATIVE (NEGATIVE); KETONES,URINE NEGATIVE (NEGATIVE); LEUKOCYTE ESTERASE,URINE NEGATIVE (NEGATIVE); NITRITE,URINE POSITIVE (NEGATIVE); OCCULT BLOOD,URINE NEGATIVE (NEGATIVE); PH,URINE 5.5 (5.0-8.0); PROTEIN,URINE NEGATIVE (NEGATIVE); UROBILINOGEN,URINE 0.2 EU/dL (<2.0)
[2024-09-22 12:06] LABS: BACTERIA,URINE 2+ (NEGATIVE); EPITHELIAL CELLS,URINE RARE (NONE-FEW); RBC,URINE 0-1 (0-2/HPF); WBC,URINE 0-1 (0-5/HPF)
[2024-09-22] MEDS: methylPREDNISolone Sodium Succinate 125 MG/2 ML SDV IVPUSH ONE (13:16)
[2024-09-22] MEDS: Ciprofloxacin in D5W 400 MG in Premix Bag 1 BAG IV SCH (13:19)
[2024-09-22] MEDS ORDERED: Polyethylene Glycol 3350 Powder 17 GM Packet PO PRN (14:42)
[2024-09-22] MEDS ORDERED: Docusate Sodium 100 MG Cap PO PRN (14:42)
[2024-09-22] MEDS ORDERED: Albuterol 0.083% 2.5 MG/3 ML Neb Soln NEB PRN (14:42)
[2024-09-22] MEDS ORDERED: Ondansetron 4 MG/2 ML SDV IVPUSH PRN (14:42)
[2024-09-22 14:49] LABS: LACTIC ACID 1.5 mmol/L (0.4-2.0)
[2024-09-22] MEDS ORDERED: Lidocaine 4% Patch TOP PRN (16:08)
[2024-09-22] MEDS: Warfarin 5 MG Tab PO ONE (17:51)
[2024-09-22] MEDS: cefTRIAXone 1 GM in Sodium Chloride 0.9% 50 ML IV SCH (17:52)
[2024-09-22] MEDS: Warfarin Sliding Scale PO SCH (17:52)
[2024-09-22] MEDS: Potassium Chloride 20 MEQ Tab.ER PO SCH (21:31)
[2024-09-22] MEDS: rOPINIRole 1 MG Tab PO SCH (21:32)
[2024-09-22] MEDS: atorvaSTATin 20 MG Tab PO SCH (21:32)
[2024-09-22] MEDS: Gabapentin 100 MG Cap PO SCH (21:32)
[2024-09-22] MEDS: Latanoprost 0.005% Ophth Soln 2.5 ML Bottle EYEBOTH SCH (21:33)
[2024-09-22] MEDS ORDERED: Ciprofloxacin in D5W 400 MG in Premix Bag 1 BAG IV SCH (23:00)
[2024-09-22] MEDS: Acetaminophen 325 MG Tab PO PRN (23:48)
[2024-09-23 06:06] LABS: HEMATOCRIT 25.4 % (37.0-47.0); HEMOGLOBIN 8.2 g/dL (12.0-16.0); IMMATURE GRAN ABSOLUTE AUTO 0.02 K/uL (0.00-0.05); IMMATURE GRAN PERCENT AUTO 0.4 % (0.0-0.4); LYMPHOCYTES ABSOLUTE AUTO 0.53 K/uL (1.00-4.80); LYMPHOCYTES PERCENT AUTO 10.9 % (24.0-44.0); MEAN CORPUSCULAR HEMOGLOBIN 27.6 pg (28.0-32.0); MEAN CORPUSCULAR HGB CONC 32.3 g/dL (32.0-36.0); MEAN CORPUSCULAR VOLUME 85.5 fL (83.0-99.0); MEAN PLATELET VOLUME 9.9 fL (9.4-12.3); MONOCYTES ABSOLUTE AUTO 0.12 K/uL (0.00-0.80); MONOCYTES PERCENT AUTO 2.5 % (0.0-8.0); NEUTROPHILS ABSOLUTE AUTO 4.18 K/uL (1.80-7.70); NEUTROPHILS PERCENT AUTO 86.2 % (41.0-71.0); PLATELET COUNT,PLT 215 K/uL (150-400); RED BLOOD CELL COUNT 2.97 M/uL (4.10-5.30); WHITE BLOOD CELL COUNT,WBC 4.85 K/uL (3.9-11.3)
[2024-09-23 06:32] LABS: CALCIUM 6.4 mg/dL (8.5-10.1); CARBON DIOXIDE,CO2 24.4 mmol/L (21.0-32.0); CREATININE 1.9 mg/dL (0.6-1.0); EST CRCL DRUG DOSING (CG) 25.01 mL/min; INR 1.19 (0.86-1.11); MAGNESIUM 1.5 mg/dL (1.8-2.4); POTASSIUM,K 4.4 mmol/L (3.5-5.1)
[2024-09-23] MEDS: Ferrous Sulfate 325 MG Tab PO SCH (09:38)
[2024-09-23] MEDS: Cholecalciferol (Vitamin D3) 25 MCG Tab PO SCH (09:38)
[2024-09-23] MEDS: Metoprolol Succinate 100 MG Tab.ER PO SCH (09:39)
[2024-09-23] MEDS: Magnesium Sulf/Wat 2 GM/50 mL 2 GM in Premix Bag 1 BAG IV ONE (09:41)
[2024-09-23] MEDS: Bumetanide 1 MG Tab PO SCH (12:22)
[2024-09-23] MEDS: Warfarin 5 MG, Warfarin 2.5 MG PO ONE (14:10)
[2024-09-24 06:07] LABS: BASOPHILS ABSOLUTE AUTO 0.01 K/uL (0.00-0.20); BASOPHILS PERCENT AUTO 0.1 % (0.0-1.0); EOSINOPHILS ABSOLUTE AUTO 0.05 K/uL (0.00-0.45); EOSINOPHILS PERCENT AUTO 0.7 % (0.0-6.0); HEMATOCRIT 25.6 % (37.0-47.0); HEMOGLOBIN 7.9 g/dL (12.0-16.0); IMMATURE GRAN ABSOLUTE AUTO 0.02 K/uL (0.00-0.05); IMMATURE GRAN PERCENT AUTO 0.3 % (0.0-0.4); LYMPHOCYTES ABSOLUTE AUTO 1.33 K/uL (1.00-4.80); LYMPHOCYTES PERCENT AUTO 17.7 % (24.0-44.0); MEAN CORPUSCULAR HEMOGLOBIN 26.8 pg (28.0-32.0); MEAN CORPUSCULAR HGB CONC 30.9 g/dL (32.0-36.0); MEAN CORPUSCULAR VOLUME 86.8 fL (83.0-99.0); MEAN PLATELET VOLUME 10.2 fL (9.4-12.3); MONOCYTES ABSOLUTE AUTO 0.51 K/uL (0.00-0.80); MONOCYTES PERCENT AUTO 6.8 % (0.0-8.0); NEUTROPHILS ABSOLUTE AUTO 5.58 K/uL (1.80-7.70); NEUTROPHILS PERCENT AUTO 74.4 % (41.0-71.0); PLATELET COUNT,PLT 198 K/uL (150-400); RED BLOOD CELL COUNT 2.95 M/uL (4.10-5.30)
[2024-09-24 06:18] LABS: INR 1.33 (0.86-1.11)
[2024-09-24 06:35] LABS: A/G RATIO 0.7 (0.9-1.6); ALBUMIN 2.7 g/dL (3.4-5.0); BILIRUBIN TOTAL 0.4 mg/dL (0.2-1.0); CALCIUM 6.3 mg/dL (8.5-10.1); CARBON DIOXIDE,CO2 26.4 mmol/L (21.0-32.0); CREATININE 1.9 mg/dL (0.6-1.0); EST CRCL DRUG DOSING (CG) 25.01 mL/min; POTASSIUM,K 4.1 mmol/L (3.5-5.1); PROTEIN TOTAL,TP 6.7 g/dL (6.4-8.2)
[2024-09-24] MEDS: Metolazone 5 MG Tab PO SCH (09:02)
[2024-09-24] MEDS: Allopurinol 100 MG Tab PO SCH (09:03)
[2024-09-24 11:01] LABS: HEMOGLOBIN A1C 6.4 %
[2024-09-24] MEDS: Warfarin 5 MG, Warfarin 2.5 MG PO ONE (16:55)
[2024-09-25 06:56] LABS: BASOPHILS ABSOLUTE AUTO 0.03 K/uL (0.00-0.20); BASOPHILS PERCENT AUTO 0.4 % (0.0-1.0); EOSINOPHILS PERCENT AUTO 1.4 % (0.0-6.0); HEMOGLOBIN 8.5 g/dL (12.0-16.0); IMMATURE GRAN ABSOLUTE AUTO 0.03 K/uL (0.00-0.05); IMMATURE GRAN PERCENT AUTO 0.4 % (0.0-0.4); LYMPHOCYTES PERCENT AUTO 15.4 % (24.0-44.0); MEAN CORPUSCULAR HGB CONC 30.4 g/dL (32.0-36.0); MEAN CORPUSCULAR VOLUME 88.9 fL (83.0-99.0); MEAN PLATELET VOLUME 9.9 fL (9.4-12.3); MONOCYTES ABSOLUTE AUTO 0.51 K/uL (0.00-0.80); MONOCYTES PERCENT AUTO 7.1 % (0.0-8.0); NEUTROPHILS ABSOLUTE AUTO 5.39 K/uL (1.80-7.70); NEUTROPHILS PERCENT AUTO 75.3 % (41.0-71.0); PLATELET COUNT,PLT 227 K/uL (150-400); RED BLOOD CELL COUNT 3.15 M/uL (4.10-5.30); WHITE BLOOD CELL COUNT,WBC 7.16 K/uL (3.9-11.3)
[2024-09-25 07:08] LABS: INR 1.56 (0.86-1.11)
[2024-09-25 07:27] LABS: A/G RATIO 0.7 (0.9-1.6); ALBUMIN 2.7 g/dL (3.4-5.0); BILIRUBIN TOTAL 0.4 mg/dL (0.2-1.0); CALCIUM 6.2 mg/dL (8.5-10.1); CARBON DIOXIDE,CO2 28.2 mmol/L (21.0-32.0); CREATININE 1.7 mg/dL (0.6-1.0); EST CRCL DRUG DOSING (CG) 27.96 mL/min; MAGNESIUM 1.8 mg/dL (1.8-2.4); POTASSIUM,K 3.6 mmol/L (3.5-5.1); PROTEIN TOTAL,TP 6.8 g/dL (6.4-8.2)
[2024-09-25] MEDS: Warfarin 5 MG, Warfarin 2.5 MG PO ONE (14:23)
== END 2024-09-25 17:11 | disposition home or self-care (01) | DRG 690 ==
LOC: MW.ED 07:29 → MW.MS 14:33
PROVIDERS: ADMIT Internal Medicine; ATTEND Internal Medicine
DX: N39.0 Urinary tract infection, site not specified (principal); I50.32 Chronic diastolic (congestive) heart failure; R53.1 Weakness; I50.9 Heart failure, unspecified; I48.91 Unspecified atrial fibrillation; I48.11 Longstanding persistent atrial fibrillation; Z68.41 Body mass index [BMI] 40.0-44.9, adult; H26.9 Unspecified cataract; H54.7 Unspecified visual loss; J44.9 Chronic obstructive pulmonary disease, unspecified; M19.90 Unspecified osteoarthritis, unspecified site; E86.0 Dehydration; M81.0 Age-related osteoporosis without current pathological fracture; Z88.2 Allergy status to sulfonamides; E66.9 Obesity, unspecified; Z88.7 Allergy status to serum and vaccine; Z91.041 Radiographic dye allergy status; Z96.659 Presence of unspecified artificial knee joint; Z96.619 Presence of unspecified artificial shoulder joint; F15.90 Other stimulant use, unspecified, uncomplicated; N18.30 Chronic kidney disease, stage 3 unspecified; R29.6 Repeated falls; M51.369 Other intervertebral disc degeneration, lumbar region without mention of lumbar back pain or lower extremity pain; M79.7 Fibromyalgia; G35 Multiple sclerosis; I87.2 Venous insufficiency (chronic) (peripheral); E83.42 Hypomagnesemia; Z79.01 Long term (current) use of anticoagulants; Z85.038 Personal history of other malignant neoplasm of large intestine; Z90.49 Acquired absence of other specified parts of digestive tract; Z98.890 Other specified postprocedural states; Z88.1 Allergy status to other antibiotic agents; Z88.0 Allergy status to penicillin; Z88.8 Allergy status to other drugs, medicaments and biological substances; Z91.048 Other nonmedicinal substance allergy status; Z88.6 Allergy status to analgesic agent; Z91.018 Allergy to other foods; Z91.09 Other allergy status, other than to drugs and biological substances; Z98.49 Cataract extraction status, unspecified eye; Z90.89 Acquired absence of other organs; Z98.84 Bariatric surgery status; Z90.710 Acquired absence of both cervix and uterus; Z87.81 Personal history of (healed) traumatic fracture; Z79.02 Long term (current) use of antithrombotics/antiplatelets; Z79.899 Other long term (current) drug therapy
CPT/HCPCS: 36415; 71045; 74176; 80053; 81001; 83605; 83690; 83880; 84484; 85025; 85610; 87086; 93005 ×3; 96365; 96375; 99285; J0744; J2919; 51798; 80048; 83036; 83735; 93010; 97162-GP; 97530-GP; 99284; A9270-GY; J0696; J3475; J3490

== ENCOUNTER 2024-10-12 12:27 | Inpatient (IN) | payer MEDICARE, BC ==
[2024-10-12] MEDS ORDERED: Sodium Chloride 0.9% 10 ML Syringe FLUSH PRN ×2 (12:32→15:55)
[2024-10-12] MEDS ORDERED: Sodium Chloride 0.9% 2.5 ML Syringe FLUSH PRN ×2 (12:32→15:55)
[2024-10-12 12:57] LABS: BASOPHILS ABSOLUTE AUTO 0.02 K/uL (0.00-0.20); BASOPHILS PERCENT AUTO 0.4 % (0.0-1.0); EOSINOPHILS ABSOLUTE AUTO 0.16 K/uL (0.00-0.45); EOSINOPHILS PERCENT AUTO 2.9 % (0.0-6.0); HEMATOCRIT 25.8 % (37.0-47.0); HEMOGLOBIN 7.7 g/dL (12.0-16.0); IMMATURE GRAN ABSOLUTE AUTO 0.02 K/uL (0.00-0.05); IMMATURE GRAN PERCENT AUTO 0.4 % (0.0-0.4); LYMPHOCYTES ABSOLUTE AUTO 0.89 K/uL (1.00-4.80); LYMPHOCYTES PERCENT AUTO 16.2 % (24.0-44.0); MEAN CORPUSCULAR HGB CONC 29.8 g/dL (32.0-36.0); MEAN CORPUSCULAR VOLUME 87.2 fL (83.0-99.0); MEAN PLATELET VOLUME 10.3 fL (9.4-12.3); MONOCYTES ABSOLUTE AUTO 0.43 K/uL (0.00-0.80); MONOCYTES PERCENT AUTO 7.8 % (0.0-8.0); NEUTROPHILS ABSOLUTE AUTO 3.97 K/uL (1.80-7.70); NEUTROPHILS PERCENT AUTO 72.3 % (41.0-71.0); PLATELET COUNT,PLT 188 K/uL (150-400); RED BLOOD CELL COUNT 2.96 M/uL (4.10-5.30); WHITE BLOOD CELL COUNT,WBC 5.49 K/uL (3.9-11.3)
[2024-10-12] MEDS: Sodium Chloride 0.9% 1,000 ML IV ONE (13:06)
[2024-10-12 13:11] LABS: INR 2.05 (0.86-1.11)
[2024-10-12 13:16] LABS: BILIRUBIN,URINE NEGATIVE (NEGATIVE); COLOR,URINE YELLOW; GLUCOSE,URINE NEGATIVE (NEGATIVE); KETONES,URINE NEGATIVE (NEGATIVE); LEUKOCYTE ESTERASE,URINE SMALL (NEGATIVE); NITRITE,URINE NEGATIVE (NEGATIVE); OCCULT BLOOD,URINE NEGATIVE (NEGATIVE); PH,URINE 5.5 (5.0-8.0); PROTEIN,URINE NEGATIVE (NEGATIVE); UROBILINOGEN,URINE 0.2 EU/dL (<2.0)
[2024-10-12 13:31] LABS: LACTIC ACID 1.6 mmol/L (0.4-2.0)
[2024-10-12 13:38] LABS: A/G RATIO 0.7 (0.9-1.6); ALBUMIN 2.8 g/dL (3.4-5.0); BILIRUBIN TOTAL 0.4 mg/dL (0.2-1.0); CALCIUM 7.7 mg/dL (8.5-10.1); CARBON DIOXIDE,CO2 25.8 mmol/L (21.0-32.0); CREATININE 2.1 mg/dL (0.6-1.0); MAGNESIUM 1.8 mg/dL (1.8-2.4); PROTEIN TOTAL,TP 6.7 g/dL (6.4-8.2); TSH ULTRASENSITIVE 1.29 uIU/mL (0.36-3.74)
[2024-10-12 13:57] LABS: APPEARANCE,URINE HAZY; BACTERIA,URINE 1+ (NEGATIVE); EPITHELIAL CELLS,URINE FEW (NONE-FEW); RBC,URINE 0-1 (0-2/HPF)
[2024-10-12] MEDS: cefTRIAXone 1 GM in Sodium Chloride 0.9% 50 ML IV ONE (15:37)
[2024-10-12] MEDS ORDERED: Docusate Sodium 100 MG Cap PO PRN (15:55)
[2024-10-12] MEDS ORDERED: Melatonin 3 MG Tab PO PRN (15:55)
[2024-10-12] MEDS ORDERED: Polyethylene Glycol 3350 Powder 17 GM Packet PO PRN (15:55)
[2024-10-12] MEDS ORDERED: Ondansetron 4 MG/2 ML SDV IVPUSH PRN (15:55)
[2024-10-12 16:02] LABS: PERCENT FE SATURATION 3.32 % (20-55); TRANSFERRIN 252.7
[2024-10-12] MEDS ORDERED: Lidocaine 4% Patch TOP PRN (16:03)
[2024-10-12 16:08] LABS: RED BLOOD CELL COUNT 2.99 M/uL (4.10-5.30); RETICULOCYTE COUNT PERCENT 1.33 % (0.5-2.0)
[2024-10-12 16:30] LABS: FOLIC ACID 6.9 ng/mL (8.60-58.90)
[2024-10-12] MEDS: Sodium Ferric Gluconate Cmplex 250 MG in Sodium Chloride 0.9% 100 ML IV ONE (16:47)
[2024-10-12] MEDS: Gabapentin 100 MG Cap PO SCH (21:58)
[2024-10-12] MEDS: Latanoprost 0.005% Ophth Soln 2.5 ML Bottle EYERT SCH (21:58)
[2024-10-12] MEDS: rOPINIRole 1 MG Tab PO SCH (21:58)
[2024-10-12] MEDS: atorvaSTATin 20 MG Tab PO SCH (21:58)
[2024-10-13 05:51] LABS: BASOPHILS ABSOLUTE AUTO 0.02 K/uL (0.00-0.20); BASOPHILS PERCENT AUTO 0.4 % (0.0-1.0); EOSINOPHILS ABSOLUTE AUTO 0.14 K/uL (0.00-0.45); EOSINOPHILS PERCENT AUTO 3.1 % (0.0-6.0); HEMATOCRIT 30.7 % (37.0-47.0); HEMOGLOBIN 9.1 g/dL (12.0-16.0); IMMATURE GRAN ABSOLUTE AUTO 0.01 K/uL (0.00-0.05); IMMATURE GRAN PERCENT AUTO 0.2 % (0.0-0.4); LYMPHOCYTES PERCENT AUTO 22.2 % (24.0-44.0); MEAN CORPUSCULAR HEMOGLOBIN 25.9 pg (28.0-32.0); MEAN CORPUSCULAR HGB CONC 29.6 g/dL (32.0-36.0); MEAN CORPUSCULAR VOLUME 87.5 fL (83.0-99.0); MONOCYTES ABSOLUTE AUTO 0.29 K/uL (0.00-0.80); MONOCYTES PERCENT AUTO 6.4 % (0.0-8.0); NEUTROPHILS ABSOLUTE AUTO 3.04 K/uL (1.80-7.70); NEUTROPHILS PERCENT AUTO 67.7 % (41.0-71.0); PLATELET COUNT,PLT 175 K/uL (150-400); RED BLOOD CELL COUNT 3.51 M/uL (4.10-5.30)
[2024-10-13 06:09] LABS: INR 2.45 (0.86-1.11)
[2024-10-13 06:14] LABS: CALCIUM 7.7 mg/dL (8.5-10.1); CARBON DIOXIDE,CO2 23.4 mmol/L (21.0-32.0); CREATININE 1.9 mg/dL (0.6-1.0); EST CRCL DRUG DOSING (CG) 23.21 mL/min; POTASSIUM,K 3.7 mmol/L (3.5-5.1)
[2024-10-13] MEDS: Cholecalciferol (Vitamin D3) 25 MCG Tab PO SCH (08:27)
[2024-10-13] MEDS: Metoprolol Succinate 100 MG Tab.ER PO SCH (08:28)
[2024-10-13] MEDS: Nystatin Topical Powder 15 GM Bottle TOP SCH (09:59)
[2024-10-13] MEDS: Acetaminophen 325 MG Tab PO PRN (10:03)
[2024-10-13] MEDS: Sodium Ferric Gluconate Cmplex 250 MG in Sodium Chloride 0.9% 100 ML IV ONE (10:08)
[2024-10-13] MEDS: Warfarin 5 MG Tab PO SCH (14:24)
[2024-10-13] MEDS: Warfarin Sliding Scale SCH (14:25)
[2024-10-13] MEDS ORDERED: cefTRIAXone 1 GM in Sodium Chloride 0.9% 50 ML IV SCH (16:00)
[2024-10-14 05:46] LABS: BASOPHILS ABSOLUTE AUTO 0.02 K/uL (0.00-0.20); BASOPHILS PERCENT AUTO 0.4 % (0.0-1.0); EOSINOPHILS ABSOLUTE AUTO 0.11 K/uL (0.00-0.45); EOSINOPHILS PERCENT AUTO 2.1 % (0.0-6.0); HEMATOCRIT 28.9 % (37.0-47.0); HEMOGLOBIN 8.7 g/dL (12.0-16.0); IMMATURE GRAN ABSOLUTE AUTO 0.01 K/uL (0.00-0.05); IMMATURE GRAN PERCENT AUTO 0.2 % (0.0-0.4); LYMPHOCYTES ABSOLUTE AUTO 1.14 K/uL (1.00-4.80); LYMPHOCYTES PERCENT AUTO 22.2 % (24.0-44.0); MEAN CORPUSCULAR HGB CONC 30.1 g/dL (32.0-36.0); MEAN CORPUSCULAR VOLUME 86.5 fL (83.0-99.0); MEAN PLATELET VOLUME 9.9 fL (9.4-12.3); MONOCYTES ABSOLUTE AUTO 0.41 K/uL (0.00-0.80); NEUTROPHILS ABSOLUTE AUTO 3.44 K/uL (1.80-7.70); NEUTROPHILS PERCENT AUTO 67.1 % (41.0-71.0); PLATELET COUNT,PLT 218 K/uL (150-400); RED BLOOD CELL COUNT 3.34 M/uL (4.10-5.30); WHITE BLOOD CELL COUNT,WBC 5.13 K/uL (3.9-11.3)
[2024-10-14 06:05] LABS: CALCIUM 7.5 mg/dL (8.5-10.1); CARBON DIOXIDE,CO2 23.7 mmol/L (21.0-32.0); CREATININE 1.9 mg/dL (0.6-1.0); EST CRCL DRUG DOSING (CG) 23.21 mL/min; MAGNESIUM 1.9 mg/dL (1.8-2.4); POTASSIUM,K 3.7 mmol/L (3.5-5.1)
[2024-10-14 06:09] LABS: INR 2.65 (0.86-1.11)
[2024-10-14] MEDS: Allopurinol 100 MG Tab PO SCH (09:29)
[2024-10-14] MEDS: Bumetanide 1 MG Tab PO SCH (09:32)
[2024-10-14] MEDS: Iron Polysaccharides Complex 150 MG Cap PO SCH (12:34)
[2024-10-14] MEDS: Warfarin 2.5 MG Tab PO SCH (17:03)
[2024-10-15 05:54] LABS: BASOPHILS ABSOLUTE AUTO 0.02 K/uL (0.00-0.20); BASOPHILS PERCENT AUTO 0.4 % (0.0-1.0); EOSINOPHILS PERCENT AUTO 2.1 % (0.0-6.0); HEMATOCRIT 28.4 % (37.0-47.0); HEMOGLOBIN 8.6 g/dL (12.0-16.0); IMMATURE GRAN ABSOLUTE AUTO 0.01 K/uL (0.00-0.05); IMMATURE GRAN PERCENT AUTO 0.2 % (0.0-0.4); LYMPHOCYTES ABSOLUTE AUTO 1.48 K/uL (1.00-4.80); LYMPHOCYTES PERCENT AUTO 30.4 % (24.0-44.0); MEAN CORPUSCULAR HEMOGLOBIN 26.4 pg (28.0-32.0); MEAN CORPUSCULAR HGB CONC 30.3 g/dL (32.0-36.0); MEAN CORPUSCULAR VOLUME 87.1 fL (83.0-99.0); MEAN PLATELET VOLUME 10.6 fL (9.4-12.3); MONOCYTES ABSOLUTE AUTO 0.35 K/uL (0.00-0.80); MONOCYTES PERCENT AUTO 7.2 % (0.0-8.0); NEUTROPHILS ABSOLUTE AUTO 2.91 K/uL (1.80-7.70); NEUTROPHILS PERCENT AUTO 59.7 % (41.0-71.0); PLATELET COUNT,PLT 215 K/uL (150-400); RED BLOOD CELL COUNT 3.26 M/uL (4.10-5.30); WHITE BLOOD CELL COUNT,WBC 4.87 K/uL (3.9-11.3)
[2024-10-15 06:17] LABS: CALCIUM 7.4 mg/dL (8.5-10.1); CARBON DIOXIDE,CO2 25.9 mmol/L (21.0-32.0); CREATININE 1.7 mg/dL (0.6-1.0); EST CRCL DRUG DOSING (CG) 25.94 mL/min; MAGNESIUM 1.7 mg/dL (1.8-2.4); POTASSIUM,K 3.5 mmol/L (3.5-5.1)
[2024-10-15 06:19] LABS: INR 2.45 (0.86-1.11)
[2024-10-15] MEDS: Magnesium Sulf/Wat 2 GM/50 mL 2 GM in Premix Bag 1 BAG IV ONE (08:45)
[2024-10-15] MEDS: Warfarin 5 MG Tab PO SCH (13:07)
[2024-10-16 06:09] LABS: BASOPHILS ABSOLUTE AUTO 0.02 K/uL (0.00-0.20); BASOPHILS PERCENT AUTO 0.4 % (0.0-1.0); EOSINOPHILS ABSOLUTE AUTO 0.15 K/uL (0.00-0.45); HEMATOCRIT 28.2 % (37.0-47.0); HEMOGLOBIN 8.7 g/dL (12.0-16.0); IMMATURE GRAN ABSOLUTE AUTO 0.01 K/uL (0.00-0.05); IMMATURE GRAN PERCENT AUTO 0.2 % (0.0-0.4); LYMPHOCYTES ABSOLUTE AUTO 1.42 K/uL (1.00-4.80); MEAN CORPUSCULAR HEMOGLOBIN 26.4 pg (28.0-32.0); MEAN CORPUSCULAR HGB CONC 30.9 g/dL (32.0-36.0); MEAN CORPUSCULAR VOLUME 85.7 fL (83.0-99.0); MEAN PLATELET VOLUME 10.4 fL (9.4-12.3); MONOCYTES ABSOLUTE AUTO 0.44 K/uL (0.00-0.80); MONOCYTES PERCENT AUTO 8.7 % (0.0-8.0); NEUTROPHILS ABSOLUTE AUTO 3.04 K/uL (1.80-7.70); NEUTROPHILS PERCENT AUTO 59.7 % (41.0-71.0); PLATELET COUNT,PLT 209 K/uL (150-400); RED BLOOD CELL COUNT 3.29 M/uL (4.10-5.30); WHITE BLOOD CELL COUNT,WBC 5.08 K/uL (3.9-11.3)
[2024-10-16 06:22] LABS: INR 2.61 (0.86-1.11)
[2024-10-16 06:30] LABS: CALCIUM 7.6 mg/dL (8.5-10.1); CARBON DIOXIDE,CO2 26.5 mmol/L (21.0-32.0); CREATININE 1.6 mg/dL (0.6-1.0); EST CRCL DRUG DOSING (CG) 27.56 mL/min; POTASSIUM,K 3.3 mmol/L (3.5-5.1)
[2024-10-16] MEDS ORDERED: Potassium Chloride 20 MEQ Tab.ER PO ONE (08:50)
[2024-10-16] MEDS: Potassium Chloride 20 MEQ Tab.ER PO ONE (11:44)
[2024-10-16] MEDS: Warfarin 2.5 MG Tab PO SCH (13:33)
[2024-10-16] MEDS: Cyclobenzaprine 10 MG Tab PO PRN (20:38)
[2024-10-17 06:12] LABS: BASOPHILS ABSOLUTE AUTO 0.02 K/uL (0.00-0.20); BASOPHILS PERCENT AUTO 0.4 % (0.0-1.0); EOSINOPHILS ABSOLUTE AUTO 0.19 K/uL (0.00-0.45); EOSINOPHILS PERCENT AUTO 3.6 % (0.0-6.0); HEMATOCRIT 28.1 % (37.0-47.0); HEMOGLOBIN 8.7 g/dL (12.0-16.0); IMMATURE GRAN ABSOLUTE AUTO 0.02 K/uL (0.00-0.05); IMMATURE GRAN PERCENT AUTO 0.4 % (0.0-0.4); LYMPHOCYTES ABSOLUTE AUTO 1.64 K/uL (1.00-4.80); LYMPHOCYTES PERCENT AUTO 31.2 % (24.0-44.0); MEAN CORPUSCULAR HEMOGLOBIN 26.5 pg (28.0-32.0); MEAN CORPUSCULAR VOLUME 85.7 fL (83.0-99.0); MONOCYTES ABSOLUTE AUTO 0.41 K/uL (0.00-0.80); MONOCYTES PERCENT AUTO 7.8 % (0.0-8.0); NEUTROPHILS ABSOLUTE AUTO 2.97 K/uL (1.80-7.70); NEUTROPHILS PERCENT AUTO 56.6 % (41.0-71.0); PLATELET COUNT,PLT 208 K/uL (150-400); RED BLOOD CELL COUNT 3.28 M/uL (4.10-5.30); WHITE BLOOD CELL COUNT,WBC 5.25 K/uL (3.9-11.3)
[2024-10-17 06:24] LABS: INR 2.96 (0.86-1.11)
[2024-10-17 06:29] LABS: CALCIUM 7.5 mg/dL (8.5-10.1); CARBON DIOXIDE,CO2 28.7 mmol/L (21.0-32.0); CREATININE 1.6 mg/dL (0.6-1.0); EST CRCL DRUG DOSING (CG) 27.56 mL/min; POTASSIUM,K 3.5 mmol/L (3.5-5.1)
[2024-10-17] MEDS: Warfarin 2.5 MG Tab PO SCH (13:05)
[2024-10-17] MEDS: rOPINIRole 0.5 MG Tab PO SCH (13:05)
[2024-10-18 05:54] LABS: BASOPHILS ABSOLUTE AUTO 0.02 K/uL (0.00-0.20); BASOPHILS PERCENT AUTO 0.4 % (0.0-1.0); EOSINOPHILS ABSOLUTE AUTO 0.18 K/uL (0.00-0.45); EOSINOPHILS PERCENT AUTO 3.5 % (0.0-6.0); HEMATOCRIT 29.7 % (37.0-47.0); IMMATURE GRAN ABSOLUTE AUTO 0.02 K/uL (0.00-0.05); IMMATURE GRAN PERCENT AUTO 0.4 % (0.0-0.4); LYMPHOCYTES ABSOLUTE AUTO 1.34 K/uL (1.00-4.80); MEAN CORPUSCULAR HEMOGLOBIN 26.1 pg (28.0-32.0); MEAN CORPUSCULAR HGB CONC 30.3 g/dL (32.0-36.0); MEAN CORPUSCULAR VOLUME 86.1 fL (83.0-99.0); MEAN PLATELET VOLUME 10.3 fL (9.4-12.3); MONOCYTES ABSOLUTE AUTO 0.42 K/uL (0.00-0.80); MONOCYTES PERCENT AUTO 8.2 % (0.0-8.0); NEUTROPHILS ABSOLUTE AUTO 3.17 K/uL (1.80-7.70); NEUTROPHILS PERCENT AUTO 61.5 % (41.0-71.0); PLATELET COUNT,PLT 196 K/uL (150-400); RED BLOOD CELL COUNT 3.45 M/uL (4.10-5.30); WHITE BLOOD CELL COUNT,WBC 5.15 K/uL (3.9-11.3)
[2024-10-18 06:32] LABS: CALCIUM 7.5 mg/dL (8.5-10.1); CARBON DIOXIDE,CO2 28.9 mmol/L (21.0-32.0); CREATININE 1.6 mg/dL (0.6-1.0); EST CRCL DRUG DOSING (CG) 27.56 mL/min; MAGNESIUM 1.6 mg/dL (1.8-2.4); POTASSIUM,K 3.1 mmol/L (3.5-5.1)
[2024-10-18] MEDS: Potassium Chloride 20 MEQ Tab.ER PO ONE (08:58)
[2024-10-18] MEDS: Magnesium Oxide 400 MG Tab PO ONE (09:46)
== END 2024-10-18 13:30 | disposition home health service (06) | DRG 812 ==
LOC: MW.ED 12:27 → MW.MS 15:32
PROVIDERS: ADMIT Family Medicine; ATTEND Family Medicine
PROC: 30233N1 Transfusion of Nonautologous Red Blood Cells into Peripheral Vein, Percutaneous Approach (ICD-10-PCS; principal; 2024-10-12)
DX: I50.33 Acute on chronic diastolic (congestive) heart failure (principal); D50.0 Iron deficiency anemia secondary to blood loss (chronic); N30.00 Acute cystitis without hematuria; I48.91 Unspecified atrial fibrillation; I50.32 Chronic diastolic (congestive) heart failure; Z98.84 Bariatric surgery status; Z68.43 Body mass index [BMI] 50.0-59.9, adult; N12 Tubulo-interstitial nephritis, not specified as acute or chronic; Z88.1 Allergy status to other antibiotic agents; Z88.5 Allergy status to narcotic agent; N17.9 Acute kidney failure, unspecified; Z91.041 Radiographic dye allergy status; Z91.048 Other nonmedicinal substance allergy status; I48.11 Longstanding persistent atrial fibrillation; E86.0 Dehydration; Z75.8 Other problems related to medical facilities and other health care; R53.1 Weakness; M79.7 Fibromyalgia; H54.7 Unspecified visual loss; J44.9 Chronic obstructive pulmonary disease, unspecified; M19.90 Unspecified osteoarthritis, unspecified site; M81.0 Age-related osteoporosis without current pathological fracture; G35 Multiple sclerosis; R29.6 Repeated falls; N18.30 Chronic kidney disease, stage 3 unspecified; E66.9 Obesity, unspecified; I87.2 Venous insufficiency (chronic) (peripheral); Z85.820 Personal history of malignant melanoma of skin; Z90.49 Acquired absence of other specified parts of digestive tract; Z90.710 Acquired absence of both cervix and uterus; Z96.659 Presence of unspecified artificial knee joint; Z98.49 Cataract extraction status, unspecified eye; Z96.619 Presence of unspecified artificial shoulder joint; Z88.0 Allergy status to penicillin; Z88.8 Allergy status to other drugs, medicaments and biological substances; Z79.899 Other long term (current) drug therapy; Z79.01 Long term (current) use of anticoagulants; Z98.890 Other specified postprocedural states
CPT/HCPCS: 36415; 71045; 74176; 80053; 81001; 82607; 82746; 83550; 83605; 83735; 83880; 84443; 85025; 85045; 85610; 87040 ×2; 87086; 87428; 93005 ×2; 96360; 99285; J7030; 36430; 80048; 86850; 86900; 86901; 86920; 97110-GO; 97110-GP; 97140-GO; 97162-GP; 97165-GO; 97530-GP; 99284; A9270-GY; J0696; J2916; J3475; P9016

== ENCOUNTER 2024-11-09 20:55 | Inpatient (IN) | payer MEDICARE, BC ==
[2024-11-09] MEDS ORDERED: Sodium Chloride 0.9% 2.5 ML Syringe FLUSH PRN (21:43)
[2024-11-09] MEDS ORDERED: Sodium Chloride 0.9% 20 ML SDV IV PRN (21:43)
[2024-11-09] MEDS ORDERED: Sodium Chloride 0.9% 10 ML Syringe FLUSH PRN (21:43)
[2024-11-09 21:48] LABS: BASOPHILS ABSOLUTE AUTO 0.02 K/uL (0.00-0.20); BASOPHILS PERCENT AUTO 0.5 % (0.0-1.0); EOSINOPHILS ABSOLUTE AUTO 0.17 K/uL (0.00-0.45); EOSINOPHILS PERCENT AUTO 4.2 % (0.0-6.0); HEMATOCRIT 34.2 % (37.0-47.0); HEMOGLOBIN 10.3 g/dL (12.0-16.0); IMMATURE GRAN ABSOLUTE AUTO 0.01 K/uL (0.00-0.05); IMMATURE GRAN PERCENT AUTO 0.2 % (0.0-0.4); LYMPHOCYTES ABSOLUTE AUTO 1.22 K/uL (1.00-4.80); LYMPHOCYTES PERCENT AUTO 29.9 % (24.0-44.0); MEAN CORPUSCULAR HEMOGLOBIN 26.7 pg (28.0-32.0); MEAN CORPUSCULAR HGB CONC 30.1 g/dL (32.0-36.0); MEAN CORPUSCULAR VOLUME 88.6 fL (83.0-99.0); MEAN PLATELET VOLUME 10.6 fL (9.4-12.3); MONOCYTES ABSOLUTE AUTO 0.35 K/uL (0.00-0.80); MONOCYTES PERCENT AUTO 8.6 % (0.0-8.0); NEUTROPHILS ABSOLUTE AUTO 2.31 K/uL (1.80-7.70); NEUTROPHILS PERCENT AUTO 56.6 % (41.0-71.0); PLATELET COUNT,PLT 164 K/uL (150-400); RED BLOOD CELL COUNT 3.86 M/uL (4.10-5.30); WHITE BLOOD CELL COUNT,WBC 4.08 K/uL (3.9-11.3)
[2024-11-09 21:52] LABS: LACTIC ACID 0.9 mmol/L (0.4-2.0)
[2024-11-09 21:58] LABS: INR 1.86 (0.86-1.11); PTT,PARTIAL THROMBOPLSTIN TIME 34.8 SEC (23.9-30.7)
[2024-11-09 22:09] LABS: A/G RATIO 0.7 (0.9-1.6); ALBUMIN 3.2 g/dL (3.4-5.0); BILIRUBIN TOTAL 0.5 mg/dL (0.2-1.0); CALCIUM 8.7 mg/dL (8.5-10.1); CREATININE 1.9 mg/dL (0.6-1.0); EST CRCL DRUG DOSING (CG) 25.01 mL/min; MAGNESIUM 1.8 mg/dL (1.8-2.4); POTASSIUM,K 3.3 mmol/L (3.5-5.1); PROTEIN TOTAL,TP 7.5 g/dL (6.4-8.2)
[2024-11-10] MEDS: Potassium Chloride 20 MEQ Tab.ER PO ONE (02:24)
[2024-11-10 07:18] LABS: APPEARANCE,URINE CLOUDY; BILIRUBIN,URINE NEGATIVE (NEGATIVE); COLOR,URINE YELLOW; GLUCOSE,URINE NEGATIVE (NEGATIVE); KETONES,URINE NEGATIVE (NEGATIVE); LEUKOCYTE ESTERASE,URINE MODERATE (NEGATIVE); NITRITE,URINE POSITIVE (NEGATIVE); OCCULT BLOOD,URINE TRACE-INTACT (NEGATIVE); PH,URINE 5.5 (5.0-8.0); PROTEIN,URINE NEGATIVE (NEGATIVE); UROBILINOGEN,URINE 0.2 EU/dL (<2.0)
[2024-11-10 07:44] LABS: BACTERIA,URINE 4+ (NEGATIVE); EPITHELIAL CELLS,URINE OCCASIONAL (NONE-FEW); WBC,URINE 40-50 (0-5/HPF)
[2024-11-10] MEDS ORDERED: Sodium Chloride 0.9% 10 ML Syringe FLUSH PRN (08:24)
[2024-11-10] MEDS ORDERED: Ondansetron 4 MG/2 ML SDV IVPUSH PRN (08:24)
[2024-11-10] MEDS ORDERED: Sodium Chloride 0.9% 2.5 ML Syringe FLUSH PRN (08:24)
[2024-11-10] MEDS ORDERED: Polyethylene Glycol 3350 Powder 17 GM Packet PO PRN (09:00)
[2024-11-10] MEDS ORDERED: Docusate Sodium 100 MG Cap PO PRN (09:00)
[2024-11-10] MEDS: Gabapentin 100 MG Cap PO SCH ×2 (09:46→22:10)
[2024-11-10] MEDS: rOPINIRole 1 MG Tab PO SCH (09:46)
[2024-11-10] MEDS: Allopurinol 100 MG Tab PO SCH (09:47)
[2024-11-10] MEDS: Metoprolol Succinate 100 MG Tab.ER PO SCH (09:47)
[2024-11-10] MEDS: Ferrous Sulfate 325 MG Tab PO SCH (09:47)
[2024-11-10] MEDS: cefTRIAXone 1 GM in Water For Injection, Sterile 10 ML IVPUSH SCH (09:47)
[2024-11-10 09:54] LABS: BASOPHILS ABSOLUTE AUTO 0.02 K/uL (0.00-0.20); BASOPHILS PERCENT AUTO 0.4 % (0.0-1.0); EOSINOPHILS ABSOLUTE AUTO 0.17 K/uL (0.00-0.45); EOSINOPHILS PERCENT AUTO 3.7 % (0.0-6.0); HEMATOCRIT 33.8 % (37.0-47.0); HEMOGLOBIN 10.3 g/dL (12.0-16.0); IMMATURE GRAN ABSOLUTE AUTO 0.01 K/uL (0.00-0.05); IMMATURE GRAN PERCENT AUTO 0.2 % (0.0-0.4); LYMPHOCYTES ABSOLUTE AUTO 1.26 K/uL (1.00-4.80); LYMPHOCYTES PERCENT AUTO 27.3 % (24.0-44.0); MEAN CORPUSCULAR HGB CONC 30.5 g/dL (32.0-36.0); MEAN CORPUSCULAR VOLUME 88.7 fL (83.0-99.0); MEAN PLATELET VOLUME 10.3 fL (9.4-12.3); MONOCYTES ABSOLUTE AUTO 0.33 K/uL (0.00-0.80); MONOCYTES PERCENT AUTO 7.1 % (0.0-8.0); NEUTROPHILS ABSOLUTE AUTO 2.83 K/uL (1.80-7.70); NEUTROPHILS PERCENT AUTO 61.3 % (41.0-71.0); PLATELET COUNT,PLT 172 K/uL (150-400); RED BLOOD CELL COUNT 3.81 M/uL (4.10-5.30); WHITE BLOOD CELL COUNT,WBC 4.62 K/uL (3.9-11.3)
[2024-11-10 10:14] LABS: INR 1.94 (0.86-1.11)
[2024-11-10 10:21] LABS: CALCIUM 8.6 mg/dL (8.5-10.1); CARBON DIOXIDE,CO2 30.8 mmol/L (21.0-32.0); CREATININE 1.9 mg/dL (0.6-1.0); EST CRCL DRUG DOSING (CG) 25.01 mL/min; MAGNESIUM 1.8 mg/dL (1.8-2.4); POTASSIUM,K 3.6 mmol/L (3.5-5.1)
[2024-11-10] MEDS: traMADol 50 MG Tab PO PRN (14:25)
[2024-11-10] MEDS: Bumetanide 1 MG Tab PO SCH (14:28)
[2024-11-10] MEDS: Warfarin 2.5 MG Tab PO SCH (14:28)
[2024-11-10] MEDS: Warfarin Sliding Scale SCH (14:28)
[2024-11-10] MEDS: atorvaSTATin 20 MG Tab PO SCH (22:11)
[2024-11-10] MEDS: Ciprofloxacin 500 MG Tab PO SCH (22:11)
[2024-11-10] MEDS: Latanoprost 0.005% Ophth Soln 2.5 ML Bottle EYERT SCH (22:11)
[2024-11-11 05:32] LABS: BASOPHILS ABSOLUTE AUTO 0.02 K/uL (0.00-0.20); BASOPHILS PERCENT AUTO 0.5 % (0.0-1.0); EOSINOPHILS ABSOLUTE AUTO 0.13 K/uL (0.00-0.45); EOSINOPHILS PERCENT AUTO 2.9 % (0.0-6.0); HEMATOCRIT 29.7 % (37.0-47.0); HEMOGLOBIN 9.2 g/dL (12.0-16.0); IMMATURE GRAN ABSOLUTE AUTO 0.01 K/uL (0.00-0.05); IMMATURE GRAN PERCENT AUTO 0.2 % (0.0-0.4); LYMPHOCYTES ABSOLUTE AUTO 1.42 K/uL (1.00-4.80); LYMPHOCYTES PERCENT AUTO 32.1 % (24.0-44.0); MEAN CORPUSCULAR HEMOGLOBIN 26.7 pg (28.0-32.0); MEAN CORPUSCULAR VOLUME 86.3 fL (83.0-99.0); MEAN PLATELET VOLUME 10.8 fL (9.4-12.3); MONOCYTES ABSOLUTE AUTO 0.41 K/uL (0.00-0.80); MONOCYTES PERCENT AUTO 9.3 % (0.0-8.0); NEUTROPHILS ABSOLUTE AUTO 2.43 K/uL (1.80-7.70); PLATELET COUNT,PLT 154 K/uL (150-400); RED BLOOD CELL COUNT 3.44 M/uL (4.10-5.30); WHITE BLOOD CELL COUNT,WBC 4.42 K/uL (3.9-11.3)
[2024-11-11 05:41] LABS: INR 2.02 (0.86-1.11)
[2024-11-11 06:11] LABS: CALCIUM 8.8 mg/dL (8.5-10.1); CREATININE 1.9 mg/dL (0.6-1.0); EST CRCL DRUG DOSING (CG) 25.01 mL/min; POTASSIUM,K 3.4 mmol/L (3.5-5.1)
[2024-11-11] MEDS: Metolazone 5 MG Tab PO SCH (08:27)
[2024-11-11] MEDS: Bumetanide 1 MG Tab PO SCH (08:29)
[2024-11-11] MEDS: Nystatin Topical Powder 15 GM Bottle TOP SCH (12:20)
[2024-11-11] MEDS: Mupirocin Oint 22 GM Tube TOP SCH (12:21)
[2024-11-11] MEDS: Warfarin 5 MG Tab PO SCH (15:33)
[2024-11-12 06:18] LABS: BASOPHILS ABSOLUTE AUTO 0.02 K/uL (0.00-0.20); BASOPHILS PERCENT AUTO 0.4 % (0.0-1.0); EOSINOPHILS ABSOLUTE AUTO 0.12 K/uL (0.00-0.45); EOSINOPHILS PERCENT AUTO 2.5 % (0.0-6.0); HEMATOCRIT 29.7 % (37.0-47.0); HEMOGLOBIN 9.2 g/dL (12.0-16.0); IMMATURE GRAN ABSOLUTE AUTO 0.01 K/uL (0.00-0.05); IMMATURE GRAN PERCENT AUTO 0.2 % (0.0-0.4); LYMPHOCYTES ABSOLUTE AUTO 1.55 K/uL (1.00-4.80); LYMPHOCYTES PERCENT AUTO 32.7 % (24.0-44.0); MEAN CORPUSCULAR HEMOGLOBIN 27.1 pg (28.0-32.0); MEAN CORPUSCULAR VOLUME 87.4 fL (83.0-99.0); MEAN PLATELET VOLUME 10.4 fL (9.4-12.3); MONOCYTES ABSOLUTE AUTO 0.42 K/uL (0.00-0.80); MONOCYTES PERCENT AUTO 8.9 % (0.0-8.0); NEUTROPHILS ABSOLUTE AUTO 2.62 K/uL (1.80-7.70); NEUTROPHILS PERCENT AUTO 55.3 % (41.0-71.0); PLATELET COUNT,PLT 149 K/uL (150-400); WHITE BLOOD CELL COUNT,WBC 4.74 K/uL (3.9-11.3)
[2024-11-12 06:36] LABS: CALCIUM 8.5 mg/dL (8.5-10.1); CARBON DIOXIDE,CO2 32.7 mmol/L (21.0-32.0); EST CRCL DRUG DOSING (CG) 23.76 mL/min; MAGNESIUM 1.5 mg/dL (1.8-2.4); POTASSIUM,K 3.3 mmol/L (3.5-5.1)
[2024-11-12] MEDS: Magnesium Sulf/Wat 2 GM/50 mL 2 GM in Premix Bag 1 BAG IV ONE (08:20)
[2024-11-12] MEDS: Potassium Chloride 20 MEQ Tab.ER PO SCH (08:20)
[2024-11-12 08:35] LABS: INR 1.94 (0.86-1.11)
[2024-11-12] MEDS: Warfarin 2.5 MG Tab PO SCH (13:04)
[2024-11-13] MEDS: Acetaminophen 325 MG Tab PO PRN (02:01)
[2024-11-13 06:18] LABS: BASOPHILS ABSOLUTE AUTO 0.02 K/uL (0.00-0.20); BASOPHILS PERCENT AUTO 0.4 % (0.0-1.0); EOSINOPHILS ABSOLUTE AUTO 0.16 K/uL (0.00-0.45); HEMATOCRIT 30.1 % (37.0-47.0); HEMOGLOBIN 9.4 g/dL (12.0-16.0); IMMATURE GRAN ABSOLUTE AUTO 0.01 K/uL (0.00-0.05); IMMATURE GRAN PERCENT AUTO 0.2 % (0.0-0.4); LYMPHOCYTES ABSOLUTE AUTO 1.64 K/uL (1.00-4.80); LYMPHOCYTES PERCENT AUTO 30.7 % (24.0-44.0); MEAN CORPUSCULAR HGB CONC 31.2 g/dL (32.0-36.0); MEAN CORPUSCULAR VOLUME 86.5 fL (83.0-99.0); MEAN PLATELET VOLUME 10.6 fL (9.4-12.3); MONOCYTES ABSOLUTE AUTO 0.55 K/uL (0.00-0.80); MONOCYTES PERCENT AUTO 10.3 % (0.0-8.0); NEUTROPHILS ABSOLUTE AUTO 2.96 K/uL (1.80-7.70); NEUTROPHILS PERCENT AUTO 55.4 % (41.0-71.0); PLATELET COUNT,PLT 152 K/uL (150-400); RED BLOOD CELL COUNT 3.48 M/uL (4.10-5.30); WHITE BLOOD CELL COUNT,WBC 5.34 K/uL (3.9-11.3)
[2024-11-13 06:37] LABS: INR 1.92 (0.86-1.11)
[2024-11-13 06:38] LABS: CALCIUM 8.5 mg/dL (8.5-10.1); EST CRCL DRUG DOSING (CG) 23.76 mL/min; MAGNESIUM 1.7 mg/dL (1.8-2.4); POTASSIUM,K 3.7 mmol/L (3.5-5.1)
[2024-11-13] MEDS ORDERED: diphenhydrAMINE/Zinc Acetate 2% Crm 28.4 GM Tube TOP PRN (08:04)
[2024-11-13] MEDS: Magnesium Oxide 400 MG Tab PO ONE ×2 (12:21→21:26)
[2024-11-13] MEDS: Warfarin 5 MG Tab PO SCH (13:00)
[2024-11-14 06:50] LABS: INR 1.82 (0.86-1.11)
[2024-11-14] MEDS: Cyclobenzaprine 10 MG Tab PO PRN (06:52)
[2024-11-14 07:07] LABS: CALCIUM 8.8 mg/dL (8.5-10.1); CARBON DIOXIDE,CO2 34.1 mmol/L (21.0-32.0); CREATININE 1.9 mg/dL (0.6-1.0); EST CRCL DRUG DOSING (CG) 25.01 mL/min; MAGNESIUM 1.7 mg/dL (1.8-2.4)
[2024-11-14] MEDS: Magnesium Sulf/Wat 2 GM/50 mL 2 GM in Premix Bag 1 BAG IV ONE (11:34)
[2024-11-14] MEDS: Warfarin 5 MG, Warfarin 2.5 MG PO SCH (13:08)
[2024-11-14] MEDS: Melatonin 3 MG Tab PO SCH (22:01)
[2024-11-15 06:00] LABS: INR 2.14 (0.86-1.11)
[2024-11-15] MEDS: Warfarin 2.5 MG Tab PO SCH (14:52)
[2024-11-16 06:10] LABS: INR 2.91 (0.86-1.11)
[2024-11-16] MEDS: Warfarin 2.5 MG Tab PO SCH (13:53)
[2024-11-17 05:59] LABS: BASOPHILS ABSOLUTE AUTO 0.04 K/uL (0.00-0.20); BASOPHILS PERCENT AUTO 0.7 % (0.0-1.0); EOSINOPHILS ABSOLUTE AUTO 0.31 K/uL (0.00-0.45); EOSINOPHILS PERCENT AUTO 5.7 % (0.0-6.0); HEMATOCRIT 34.8 % (37.0-47.0); HEMOGLOBIN 10.5 g/dL (12.0-16.0); IMMATURE GRAN ABSOLUTE AUTO 0.01 K/uL (0.00-0.05); IMMATURE GRAN PERCENT AUTO 0.2 % (0.0-0.4); LYMPHOCYTES ABSOLUTE AUTO 1.66 K/uL (1.00-4.80); LYMPHOCYTES PERCENT AUTO 30.5 % (24.0-44.0); MEAN CORPUSCULAR HEMOGLOBIN 26.5 pg (28.0-32.0); MEAN CORPUSCULAR HGB CONC 30.2 g/dL (32.0-36.0); MEAN CORPUSCULAR VOLUME 87.9 fL (83.0-99.0); MEAN PLATELET VOLUME 11.3 fL (9.4-12.3); MONOCYTES ABSOLUTE AUTO 0.58 K/uL (0.00-0.80); MONOCYTES PERCENT AUTO 10.6 % (0.0-8.0); NEUTROPHILS ABSOLUTE AUTO 2.85 K/uL (1.80-7.70); NEUTROPHILS PERCENT AUTO 52.3 % (41.0-71.0); PLATELET COUNT,PLT 128 K/uL (150-400); RED BLOOD CELL COUNT 3.96 M/uL (4.10-5.30); WHITE BLOOD CELL COUNT,WBC 5.45 K/uL (3.9-11.3)
[2024-11-17 06:26] LABS: CALCIUM 8.9 mg/dL (8.5-10.1); CARBON DIOXIDE,CO2 34.3 mmol/L (21.0-32.0); CREATININE 2.3 mg/dL (0.6-1.0); EST CRCL DRUG DOSING (CG) 20.66 mL/min; POTASSIUM,K 4.3 mmol/L (3.5-5.1)
[2024-11-17] MEDS: Warfarin 2.5 MG Tab PO ONE (13:57)
[2024-11-18 06:15] LABS: BASOPHILS ABSOLUTE AUTO 0.03 K/uL (0.00-0.20); BASOPHILS PERCENT AUTO 0.5 % (0.0-1.0); EOSINOPHILS ABSOLUTE AUTO 0.23 K/uL (0.00-0.45); EOSINOPHILS PERCENT AUTO 3.8 % (0.0-6.0); HEMATOCRIT 35.5 % (37.0-47.0); HEMOGLOBIN 10.7 g/dL (12.0-16.0); IMMATURE GRAN ABSOLUTE AUTO 0.02 K/uL (0.00-0.05); IMMATURE GRAN PERCENT AUTO 0.3 % (0.0-0.4); LYMPHOCYTES ABSOLUTE AUTO 1.58 K/uL (1.00-4.80); LYMPHOCYTES PERCENT AUTO 26.2 % (24.0-44.0); MEAN CORPUSCULAR HEMOGLOBIN 26.5 pg (28.0-32.0); MEAN CORPUSCULAR HGB CONC 30.1 g/dL (32.0-36.0); MEAN CORPUSCULAR VOLUME 87.9 fL (83.0-99.0); MEAN PLATELET VOLUME 10.1 fL (9.4-12.3); MONOCYTES ABSOLUTE AUTO 0.48 K/uL (0.00-0.80); NEUTROPHILS ABSOLUTE AUTO 3.69 K/uL (1.80-7.70); NEUTROPHILS PERCENT AUTO 61.2 % (41.0-71.0); PLATELET COUNT,PLT 137 K/uL (150-400); RED BLOOD CELL COUNT 4.04 M/uL (4.10-5.30); WHITE BLOOD CELL COUNT,WBC 6.03 K/uL (3.9-11.3)
[2024-11-18 06:31] LABS: INR 2.33 (0.86-1.11)
[2024-11-18 07:44] LABS: CALCIUM 8.8 mg/dL (8.5-10.1); CARBON DIOXIDE,CO2 33.7 mmol/L (21.0-32.0); CREATININE 2.3 mg/dL (0.6-1.0); EST CRCL DRUG DOSING (CG) 20.66 mL/min; MAGNESIUM 1.8 mg/dL (1.8-2.4); POTASSIUM,K 3.8 mmol/L (3.5-5.1)
[2024-11-18] MEDS: Bumetanide 1 MG Tab PO SCH (09:45)
[2024-11-18] MEDS ORDERED: Warfarin 5 MG Tab PO SCH (14:00)
[2024-11-19] MEDS ORDERED: Metolazone 5 MG Tab PO SCH (09:00)
== END 2024-11-18 13:15 | DRG 690 ==
LOC: MW.ED 20:55 → MW.MS 11-10 04:27 → OBSVTOIN 11-10 09:48
PROVIDERS: ADMIT Family Medicine; ATTEND Family Medicine
DX: N30.00 Acute cystitis without hematuria (principal); I48.11 Longstanding persistent atrial fibrillation; I50.32 Chronic diastolic (congestive) heart failure; C19 Malignant neoplasm of rectosigmoid junction; Z16.19 Resistance to other specified beta lactam antibiotics; R62.7 Adult failure to thrive; L89.152 Pressure ulcer of sacral region, stage 2; J44.9 Chronic obstructive pulmonary disease, unspecified; M79.7 Fibromyalgia; M19.90 Unspecified osteoarthritis, unspecified site; M81.0 Age-related osteoporosis without current pathological fracture; G35 Multiple sclerosis; E66.9 Obesity, unspecified; H54.7 Unspecified visual loss; Z96.659 Presence of unspecified artificial knee joint; Z96.619 Presence of unspecified artificial shoulder joint; D50.0 Iron deficiency anemia secondary to blood loss (chronic); N18.30 Chronic kidney disease, stage 3 unspecified; I87.2 Venous insufficiency (chronic) (peripheral); M51.369 Other intervertebral disc degeneration, lumbar region without mention of lumbar back pain or lower extremity pain; D63.1 Anemia in chronic kidney disease; L01.00 Impetigo, unspecified; M10.9 Gout, unspecified; R29.6 Repeated falls; B96.89 Other specified bacterial agents as the cause of diseases classified elsewhere; Z98.890 Other specified postprocedural states; Z79.01 Long term (current) use of anticoagulants; Z88.0 Allergy status to penicillin; Z88.8 Allergy status to other drugs, medicaments and biological substances; Z88.2 Allergy status to sulfonamides; Z88.1 Allergy status to other antibiotic agents; Z91.048 Other nonmedicinal substance allergy status; Z79.899 Other long term (current) drug therapy; Z68.35 Body mass index [BMI] 35.0-35.9, adult; Z85.79 Personal history of other malignant neoplasms of lymphoid, hematopoietic and related tissues; Z86.16 Personal history of COVID-19; Z90.89 Acquired absence of other organs; Z98.49 Cataract extraction status, unspecified eye; Z98.84 Bariatric surgery status; Z90.49 Acquired absence of other specified parts of digestive tract; Z90.710 Acquired absence of both cervix and uterus
CPT/HCPCS: 36415 ×2; 70450; 71250; 72125; 72128; 72131; 73501; 73552; 74176; 80053; 81001; 82550; 83605; 83735; 83880; 84484; 85025; 85610; 85730; 87040 ×2; 87086; 87088; 87186; 93005 ×2; 93970; 99285; A9270 ×6; G0378 ×2; J0696; 80048; 97110-GP; 97163-GP; 97530-GP; 99222; 99231; 99232; 99239; 99284; J3475

== ENCOUNTER 2024-12-31 12:18 | Inpatient (IN) | payer MEDICARE, BC ==
[2024-12-31 13:17] LABS: BASOPHILS ABSOLUTE AUTO 0.02 K/uL (0.00-0.20); BASOPHILS PERCENT AUTO 0.3 % (0.0-1.0); EOSINOPHILS PERCENT AUTO 1.3 % (0.0-6.0); HEMATOCRIT 28.9 % (37.0-47.0); HEMOGLOBIN 9.2 g/dL (12.0-16.0); IMMATURE GRAN ABSOLUTE AUTO 0.02 K/uL (0.00-0.05); IMMATURE GRAN PERCENT AUTO 0.3 % (0.0-0.4); LYMPHOCYTES ABSOLUTE AUTO 1.63 K/uL (1.00-4.80); LYMPHOCYTES PERCENT AUTO 21.5 % (24.0-44.0); MEAN CORPUSCULAR HEMOGLOBIN 28.7 pg (28.0-32.0); MEAN CORPUSCULAR HGB CONC 31.8 g/dL (32.0-36.0); MEAN PLATELET VOLUME 9.3 fL (9.4-12.3); MONOCYTES ABSOLUTE AUTO 0.67 K/uL (0.00-0.80); MONOCYTES PERCENT AUTO 8.8 % (0.0-8.0); NEUTROPHILS ABSOLUTE AUTO 5.14 K/uL (1.80-7.70); NEUTROPHILS PERCENT AUTO 67.8 % (41.0-71.0); PLATELET COUNT,PLT 188 K/uL (150-400); RED BLOOD CELL COUNT 3.21 M/uL (4.10-5.30); WHITE BLOOD CELL COUNT,WBC 7.58 K/uL (3.9-11.3)
[2024-12-31 13:31] LABS: INR 1.8 (0.86-1.11)
[2024-12-31 13:42] LABS: BILIRUBIN,URINE NEGATIVE (NEGATIVE); COLOR,URINE YELLOW; GLUCOSE,URINE NEGATIVE (NEGATIVE); KETONES,URINE NEGATIVE (NEGATIVE); LEUKOCYTE ESTERASE,URINE MODERATE (NEGATIVE); NITRITE,URINE NEGATIVE (NEGATIVE); OCCULT BLOOD,URINE TRACE-LYSED (NEGATIVE); PROTEIN,URINE TRACE mg/dL (NEGATIVE); UROBILINOGEN,URINE 0.2 EU/dL (<2.0)
[2024-12-31 13:42] LABS: A/G RATIO 0.6 (0.9-1.6); ALBUMIN 2.6 g/dL (3.4-5.0); BILIRUBIN TOTAL 0.8 mg/dL (0.2-1.0); CALCIUM 8.6 mg/dL (8.5-10.1); CARBON DIOXIDE,CO2 32.8 mmol/L (21.0-32.0); CREATININE 2.8 mg/dL (0.6-1.0); EST CRCL DRUG DOSING (CG) 16.97 mL/min; POTASSIUM,K 3.3 mmol/L (3.5-5.1); PROTEIN TOTAL,TP 7.1 g/dL (6.4-8.2)
[2024-12-31 13:46] LABS: ACETAMINOPHEN <2.0 ug/mL; SALICYLATE 0.9 mg/dL (0.0-20.0)
[2024-12-31 13:52] LABS: APPEARANCE,URINE CLOUDY
[2024-12-31 13:53] LABS: AMPHETAMINES SCREEN, URINE NEGATIVE (CUTOFF=500); BARBITURATE SCREEN,URINE NEGATIVE (CUTOFF=200); BENZODIAZEPINES SCREEN,URINE NEGATIVE (CUTOFF=150); BUPRENORPHINE SCREEN,URINE NEGATIVE (CUTOFF=10); METHADONE SCREEN, URINE NEGATIVE (CUTOFF=200); METHAMPHETAMINES SCREEN, URINE NEGATIVE (CUTOFF=500); OXYCODONE SCREEN,URINE NEGATIVE (CUT0FF=100); PCP SCREEN,URINE NEGATIVE (CUTOFF=25); THC SCREEN,URINE 20 NG/ML NEGATIVE (CUTOFF=50)
[2024-12-31 14:20] LABS: BACTERIA,URINE 4+ (NEGATIVE); EPITHELIAL CELLS,URINE RARE (NONE-FEW); RBC,URINE 0-1 (0-2/HPF); WBC,URINE 21-26 (0-5/HPF)
[2024-12-31] MEDS: cefTRIAXone 2 GM in Water For Injection, Sterile 20 ML IVPUSH ONE (15:29)
[2024-12-31] MEDS ORDERED: Sodium Chloride 0.9% 10 ML Syringe FLUSH PRN (15:33)
[2024-12-31] MEDS ORDERED: Sodium Chloride 0.9% 2.5 ML Syringe FLUSH PRN (15:33)
[2024-12-31] MEDS ORDERED: Ondansetron 4 MG/2 ML SDV IVPUSH PRN (15:33)
[2024-12-31] MEDS ORDERED: Acetaminophen 325 MG Tab PO PRN (15:33)
[2024-12-31] MEDS: Potassium Chloride 20 MEQ Tab.ER PO ONE (16:14)
[2024-12-31] MEDS: traMADol 50 MG Tab PO SCH (16:14)
[2024-12-31] MEDS: Sodium Chloride 0.9% 1,000 ML IV SCH (16:15)
[2024-12-31] MEDS: Warfarin 5 MG Tab PO ONE (16:18)
[2024-12-31] MEDS: Warfarin Sliding Scale PO SCH (17:36)
[2024-12-31] MEDS: Latanoprost 0.005% Ophth Soln 2.5 ML Bottle EYERT SCH (21:29)
[2024-12-31] MEDS: rOPINIRole 1 MG Tab PO SCH (21:30)
[2024-12-31] MEDS: Gabapentin 100 MG Cap PO SCH (21:30)
[2024-12-31] MEDS: atorvaSTATin 20 MG Tab PO SCH (21:31)
[2025-01-01 06:01] LABS: BASOPHILS ABSOLUTE AUTO 0.02 K/uL (0.00-0.20); BASOPHILS PERCENT AUTO 0.4 % (0.0-1.0); EOSINOPHILS ABSOLUTE AUTO 0.12 K/uL (0.00-0.45); EOSINOPHILS PERCENT AUTO 2.2 % (0.0-6.0); HEMATOCRIT 25.8 % (37.0-47.0); HEMOGLOBIN 8.2 g/dL (12.0-16.0); IMMATURE GRAN ABSOLUTE AUTO 0.02 K/uL (0.00-0.05); IMMATURE GRAN PERCENT AUTO 0.4 % (0.0-0.4); LYMPHOCYTES PERCENT AUTO 28.7 % (24.0-44.0); MEAN CORPUSCULAR HEMOGLOBIN 28.6 pg (28.0-32.0); MEAN CORPUSCULAR HGB CONC 31.8 g/dL (32.0-36.0); MEAN CORPUSCULAR VOLUME 89.9 fL (83.0-99.0); MEAN PLATELET VOLUME 9.7 fL (9.4-12.3); MONOCYTES ABSOLUTE AUTO 0.48 K/uL (0.00-0.80); MONOCYTES PERCENT AUTO 8.6 % (0.0-8.0); NEUTROPHILS ABSOLUTE AUTO 3.33 K/uL (1.80-7.70); NEUTROPHILS PERCENT AUTO 59.7 % (41.0-71.0); PLATELET COUNT,PLT 147 K/uL (150-400); RED BLOOD CELL COUNT 2.87 M/uL (4.10-5.30); WHITE BLOOD CELL COUNT,WBC 5.57 K/uL (3.9-11.3)
[2025-01-01 06:17] LABS: INR 1.84 (0.86-1.11)
[2025-01-01 06:25] LABS: CALCIUM 8.4 mg/dL (8.5-10.1); CARBON DIOXIDE,CO2 33.1 mmol/L (21.0-32.0); CREATININE 2.5 mg/dL (0.6-1.0); EST CRCL DRUG DOSING (CG) 19.01 mL/min; POTASSIUM,K 3.8 mmol/L (3.5-5.1)
[2025-01-01] MEDS: Ferrous Sulfate 325 MG Tab PO SCH (08:48)
[2025-01-01] MEDS: Cholecalciferol (Vitamin D3) 25 MCG Tab PO SCH (08:48)
[2025-01-01] MEDS: Gabapentin 100 MG Cap PO SCH (08:48)
[2025-01-01] MEDS: Metoprolol Succinate 100 MG Tab.ER PO SCH (09:22)
[2025-01-01] MEDS: Warfarin 5 MG Tab PO ONE (14:24)
[2025-01-01] MEDS: cefTRIAXone 2 GM in Water For Injection, Sterile 20 ML IVPUSH SCH (15:52)
[2025-01-02 06:22] LABS: BASOPHILS ABSOLUTE AUTO 0.02 K/uL (0.00-0.20); BASOPHILS PERCENT AUTO 0.4 % (0.0-1.0); EOSINOPHILS ABSOLUTE AUTO 0.13 K/uL (0.00-0.45); EOSINOPHILS PERCENT AUTO 2.3 % (0.0-6.0); HEMOGLOBIN 8.2 g/dL (12.0-16.0); IMMATURE GRAN ABSOLUTE AUTO 0.01 K/uL (0.00-0.05); IMMATURE GRAN PERCENT AUTO 0.2 % (0.0-0.4); LYMPHOCYTES ABSOLUTE AUTO 1.63 K/uL (1.00-4.80); LYMPHOCYTES PERCENT AUTO 28.7 % (24.0-44.0); MEAN CORPUSCULAR HEMOGLOBIN 28.4 pg (28.0-32.0); MEAN CORPUSCULAR HGB CONC 31.5 g/dL (32.0-36.0); MEAN PLATELET VOLUME 9.8 fL (9.4-12.3); MONOCYTES ABSOLUTE AUTO 0.45 K/uL (0.00-0.80); MONOCYTES PERCENT AUTO 7.9 % (0.0-8.0); NEUTROPHILS ABSOLUTE AUTO 3.43 K/uL (1.80-7.70); NEUTROPHILS PERCENT AUTO 60.5 % (41.0-71.0); PLATELET COUNT,PLT 152 K/uL (150-400); RED BLOOD CELL COUNT 2.89 M/uL (4.10-5.30); WHITE BLOOD CELL COUNT,WBC 5.67 K/uL (3.9-11.3)
[2025-01-02 06:43] LABS: CALCIUM 8.2 mg/dL (8.5-10.1); CARBON DIOXIDE,CO2 28.5 mmol/L (21.0-32.0); CREATININE 2.3 mg/dL (0.6-1.0); EST CRCL DRUG DOSING (CG) 20.66 mL/min; POTASSIUM,K 3.6 mmol/L (3.5-5.1)
[2025-01-02 06:45] LABS: INR 2.33 (0.86-1.11)
[2025-01-02] MEDS: Allopurinol 100 MG Tab PO SCH (09:02)
[2025-01-02] MEDS: Warfarin 5 MG Tab PO ONE (13:31)
[2025-01-03 06:04] LABS: BASOPHILS ABSOLUTE AUTO 0.02 K/uL (0.00-0.20); BASOPHILS PERCENT AUTO 0.4 % (0.0-1.0); EOSINOPHILS ABSOLUTE AUTO 0.18 K/uL (0.00-0.45); EOSINOPHILS PERCENT AUTO 3.2 % (0.0-6.0); HEMATOCRIT 26.2 % (37.0-47.0); HEMOGLOBIN 8.3 g/dL (12.0-16.0); IMMATURE GRAN ABSOLUTE AUTO 0.01 K/uL (0.00-0.05); IMMATURE GRAN PERCENT AUTO 0.2 % (0.0-0.4); LYMPHOCYTES ABSOLUTE AUTO 1.46 K/uL (1.00-4.80); LYMPHOCYTES PERCENT AUTO 25.9 % (24.0-44.0); MEAN CORPUSCULAR HEMOGLOBIN 28.7 pg (28.0-32.0); MEAN CORPUSCULAR HGB CONC 31.7 g/dL (32.0-36.0); MEAN CORPUSCULAR VOLUME 90.7 fL (83.0-99.0); MEAN PLATELET VOLUME 9.5 fL (9.4-12.3); MONOCYTES ABSOLUTE AUTO 0.44 K/uL (0.00-0.80); MONOCYTES PERCENT AUTO 7.8 % (0.0-8.0); NEUTROPHILS ABSOLUTE AUTO 3.52 K/uL (1.80-7.70); NEUTROPHILS PERCENT AUTO 62.5 % (41.0-71.0); PLATELET COUNT,PLT 146 K/uL (150-400); RED BLOOD CELL COUNT 2.89 M/uL (4.10-5.30); WHITE BLOOD CELL COUNT,WBC 5.63 K/uL (3.9-11.3)
[2025-01-03 06:13] LABS: INR 2.85 (0.86-1.11)
[2025-01-03 06:24] LABS: CALCIUM 8.7 mg/dL (8.5-10.1); CARBON DIOXIDE,CO2 32.3 mmol/L (21.0-32.0); CREATININE 2.1 mg/dL (0.6-1.0); EST CRCL DRUG DOSING (CG) 22.63 mL/min; POTASSIUM,K 3.6 mmol/L (3.5-5.1)
[2025-01-03] MEDS: Polyethylene Glycol 3350 Powder 17 GM Packet PO SCH (10:10)
[2025-01-03] MEDS: Docusate Sodium 100 MG Cap PO SCH (10:10)
[2025-01-03] MEDS: cefTRIAXone 2 GM in Water For Injection, Sterile 20 ML IVPUSH SCH (13:09)
[2025-01-03] MEDS: Warfarin 2.5 MG Tab PO ONE (13:10)
[2025-01-03] MEDS: Bumetanide 1 MG Tab PO SCH (16:19)
[2025-01-04 06:55] LABS: INR 3.43 (0.86-1.11)
[2025-01-04] MEDS ORDERED: Bumetanide 1 MG Tab PO SCH (08:00)
== END 2025-01-04 13:45 | disposition home or self-care (01) | DRG 689 ==
LOC: MW.ED 12:18 → MW.MS 14:23 → OBSVTOIN 15:33 → MW.MS 16:27
PROVIDERS: ADMIT Internal Medicine; ATTEND Internal Medicine
DX: N30.00 Acute cystitis without hematuria (principal); L89.512 Pressure ulcer of right ankle, stage 2; J15.0 Pneumonia due to Klebsiella pneumoniae; I50.9 Heart failure, unspecified; N17.9 Acute kidney failure, unspecified; I48.11 Longstanding persistent atrial fibrillation; I50.32 Chronic diastolic (congestive) heart failure; H54.7 Unspecified visual loss; J44.9 Chronic obstructive pulmonary disease, unspecified; M79.7 Fibromyalgia; Z91.018 Allergy to other foods; Z91.048 Other nonmedicinal substance allergy status; Z88.2 Allergy status to sulfonamides; Z88.5 Allergy status to narcotic agent; Z88.1 Allergy status to other antibiotic agents; M19.90 Unspecified osteoarthritis, unspecified site; M81.0 Age-related osteoporosis without current pathological fracture; G35 Multiple sclerosis; E66.9 Obesity, unspecified; D64.9 Anemia, unspecified; R41.82 Altered mental status, unspecified; L89.152 Pressure ulcer of sacral region, stage 2; E87.6 Hypokalemia; N18.30 Chronic kidney disease, stage 3 unspecified; I87.2 Venous insufficiency (chronic) (peripheral); M51.369 Other intervertebral disc degeneration, lumbar region without mention of lumbar back pain or lower extremity pain; Z85.038 Personal history of other malignant neoplasm of large intestine; Z88.8 Allergy status to other drugs, medicaments and biological substances; Z79.01 Long term (current) use of anticoagulants; Z88.0 Allergy status to penicillin; Z85.820 Personal history of malignant melanoma of skin; Z68.38 Body mass index [BMI] 38.0-38.9, adult; Z98.890 Other specified postprocedural states; Z90.49 Acquired absence of other specified parts of digestive tract; Z90.710 Acquired absence of both cervix and uterus; Z86.16 Personal history of COVID-19; Z98.49 Cataract extraction status, unspecified eye; Z86.718 Personal history of other venous thrombosis and embolism; Z79.899 Other long term (current) drug therapy; Z96.619 Presence of unspecified artificial shoulder joint; Z96.659 Presence of unspecified artificial knee joint
CPT/HCPCS: 36415; 70450; 71045; 74176; 80053; 80143; 80179; 80305; 81001; 83605; 83690; 83880; 84484; 85025; 85610; 85730; 87040 ×2; 87086; 87088; 87186; 93005; 96374; 99285; J0696; 80048; 93010; 97165-GO; A9270-GY; J7030

== ENCOUNTER 2025-01-13 21:11 | Emergency (ER) | payer MEDICARE, BC ==
[2025-01-13 22:20] LABS: BASOPHILS ABSOLUTE AUTO 0.03 K/uL (0.00-0.20); BASOPHILS PERCENT AUTO 0.4 % (0.0-1.0); EOSINOPHILS ABSOLUTE AUTO 0.17 K/uL (0.00-0.45); EOSINOPHILS PERCENT AUTO 2.3 % (0.0-6.0); HEMATOCRIT 26.8 % (37.0-47.0); HEMOGLOBIN 8.4 g/dL (12.0-16.0); IMMATURE GRAN ABSOLUTE AUTO 0.02 K/uL (0.00-0.05); IMMATURE GRAN PERCENT AUTO 0.3 % (0.0-0.4); LYMPHOCYTES ABSOLUTE AUTO 1.17 K/uL (1.00-4.80); LYMPHOCYTES PERCENT AUTO 15.6 % (24.0-44.0); MEAN CORPUSCULAR HEMOGLOBIN 29.3 pg (28.0-32.0); MEAN CORPUSCULAR HGB CONC 31.3 g/dL (32.0-36.0); MEAN CORPUSCULAR VOLUME 93.4 fL (83.0-99.0); MEAN PLATELET VOLUME 9.7 fL (9.4-12.3); MONOCYTES ABSOLUTE AUTO 0.54 K/uL (0.00-0.80); MONOCYTES PERCENT AUTO 7.2 % (0.0-8.0); NEUTROPHILS ABSOLUTE AUTO 5.55 K/uL (1.80-7.70); NEUTROPHILS PERCENT AUTO 74.2 % (41.0-71.0); PLATELET COUNT,PLT 162 K/uL (150-400); RED BLOOD CELL COUNT 2.87 M/uL (4.10-5.30); WHITE BLOOD CELL COUNT,WBC 7.48 K/uL (3.9-11.3)
[2025-01-13 22:41] LABS: A/G RATIO 0.5 (0.9-1.6); ALBUMIN 2.2 g/dL (3.4-5.0); BILIRUBIN TOTAL 0.5 mg/dL (0.2-1.0); C-REACTIVE PROTEIN 4.9 mg/dL (<0.3); CALCIUM 8.2 mg/dL (8.5-10.1); CARBON DIOXIDE,CO2 28.6 mmol/L (21.0-32.0); CREATININE 2.1 mg/dL (0.6-1.0); EST CRCL DRUG DOSING (CG) 20.19 mL/min; POTASSIUM,K 3.7 mmol/L (3.5-5.1); PROTEIN TOTAL,TP 6.4 g/dL (6.4-8.2)
[2025-01-14] MEDS: Zinc Oxide 13% Crm 56 GM Tube TOP ONE (01:26)
== END 2025-01-14 01:52 | disposition home or self-care (01) ==
LOC: MW.ED 21:11
DX: L89.159 Pressure ulcer of sacral region, unspecified stage (principal); S30.810A Abrasion of lower back and pelvis, initial encounter; N18.30 Chronic kidney disease, stage 3 unspecified; D64.9 Anemia, unspecified; I48.91 Unspecified atrial fibrillation; I50.9 Heart failure, unspecified; Z88.0 Allergy status to penicillin; Z88.1 Allergy status to other antibiotic agents; Z88.8 Allergy status to other drugs, medicaments and biological substances; Z88.2 Allergy status to sulfonamides; Z91.048 Other nonmedicinal substance allergy status; Z79.899 Other long term (current) drug therapy; Z79.01 Long term (current) use of anticoagulants; Z90.49 Acquired absence of other specified parts of digestive tract; X58.XXXA Exposure to other specified factors, initial encounter
CPT/HCPCS: 36415; 80053; 83605; 85025; 85652; 86140; 87040; 99283

== ENCOUNTER 2025-01-16 16:52 | Emergency (ER) | payer MEDICARE, BC ==
[2025-01-16] MEDS ORDERED: Sodium Chloride 0.9% 20 ML SDV IV PRN (18:08)
[2025-01-16] MEDS ORDERED: Sodium Chloride 0.9% 2.5 ML Syringe FLUSH PRN (18:08)
[2025-01-16] MEDS ORDERED: Sodium Chloride 0.9% 10 ML Syringe FLUSH PRN (18:08)
[2025-01-16 18:38] LABS: BASOPHILS ABSOLUTE AUTO 0.02 K/uL (0.00-0.20); BASOPHILS PERCENT AUTO 0.3 % (0.0-1.0); EOSINOPHILS ABSOLUTE AUTO 0.09 K/uL (0.00-0.45); EOSINOPHILS PERCENT AUTO 1.2 % (0.0-6.0); HEMATOCRIT 26.7 % (37.0-47.0); HEMOGLOBIN 8.4 g/dL (12.0-16.0); IMMATURE GRAN ABSOLUTE AUTO 0.02 K/uL (0.00-0.05); IMMATURE GRAN PERCENT AUTO 0.3 % (0.0-0.4); LYMPHOCYTES ABSOLUTE AUTO 1.44 K/uL (1.00-4.80); LYMPHOCYTES PERCENT AUTO 19.6 % (24.0-44.0); MEAN CORPUSCULAR HEMOGLOBIN 29.6 pg (28.0-32.0); MEAN CORPUSCULAR HGB CONC 31.5 g/dL (32.0-36.0); MEAN PLATELET VOLUME 9.5 fL (9.4-12.3); MONOCYTES ABSOLUTE AUTO 0.56 K/uL (0.00-0.80); MONOCYTES PERCENT AUTO 7.6 % (0.0-8.0); PLATELET COUNT,PLT 178 K/uL (150-400); RED BLOOD CELL COUNT 2.84 M/uL (4.10-5.30); WHITE BLOOD CELL COUNT,WBC 7.33 K/uL (3.9-11.3)
[2025-01-16 18:49] LABS: INR 1.8 (0.86-1.11)
[2025-01-16 19:05] LABS: A/G RATIO 0.5 (0.9-1.6); ALBUMIN 2.3 g/dL (3.4-5.0); BILIRUBIN TOTAL 0.6 mg/dL (0.2-1.0); CALCIUM 8.2 mg/dL (8.5-10.1); CARBON DIOXIDE,CO2 30.3 mmol/L (21.0-32.0); CREATININE 1.8 mg/dL (0.6-1.0); EST CRCL DRUG DOSING (CG) 26.4 mL/min; MAGNESIUM 1.6 mg/dL (1.8-2.4); POTASSIUM,K 4.3 mmol/L (3.5-5.1); PROTEIN TOTAL,TP 6.7 g/dL (6.4-8.2)
[2025-01-16] MEDS: Pantoprazole 80 MG in Sodium Chloride 0.9% 10 ML IVPUSH ONE (19:53)
== END 2025-01-16 23:51 ==
LOC: MW.ED 16:52
DX: K92.2 Gastrointestinal hemorrhage, unspecified (principal); I48.91 Unspecified atrial fibrillation; I50.9 Heart failure, unspecified; E66.9 Obesity, unspecified; J44.9 Chronic obstructive pulmonary disease, unspecified; Z90.49 Acquired absence of other specified parts of digestive tract; Z90.710 Acquired absence of both cervix and uterus; Z79.01 Long term (current) use of anticoagulants; Z79.899 Other long term (current) drug therapy; Z88.8 Allergy status to other drugs, medicaments and biological substances; Z91.041 Radiographic dye allergy status; Z91.048 Other nonmedicinal substance allergy status; Z88.2 Allergy status to sulfonamides; Z88.0 Allergy status to penicillin; Z88.1 Allergy status to other antibiotic agents; Z68.37 Body mass index [BMI] 37.0-37.9, adult
CPT/HCPCS: 36415; 80053; 83735; 85025; 85610; 86850; 86900; 86901; 96374; 99285; J2470; 99284

== ENCOUNTER 2025-02-03 14:45 | Emergency (ER) | payer MEDICARE, BC | END 2025-02-03 17:24 | disposition home or self-care (01) | LOC: MW.ED 14:45 | DX: S70.01XA Contusion of right hip, initial encounter (principal); S70.02XA Contusion of left hip, initial encounter; X50.1XXA Overexertion from prolonged static or awkward postures, initial encounter; S80.02XA Contusion of left knee, initial encounter; S80.01XA Contusion of right knee, initial encounter; I50.9 Heart failure, unspecified; I48.91 Unspecified atrial fibrillation; E66.9 Obesity, unspecified; J44.9 Chronic obstructive pulmonary disease, unspecified; Z88.1 Allergy status to other antibiotic agents; Z88.0 Allergy status to penicillin; Z88.8 Allergy status to other drugs, medicaments and biological substances; Z91.048 Other nonmedicinal substance allergy status; Z91.041 Radiographic dye allergy status; Z79.899 Other long term (current) drug therapy; Z79.01 Long term (current) use of anticoagulants; Z90.49 Acquired absence of other specified parts of digestive tract; Z90.710 Acquired absence of both cervix and uterus; Z68.39 Body mass index [BMI] 39.0-39.9, adult | CPT/HCPCS: 72170; 72170-26; 735602650; 73560-50; 99282; 99283 ==

== ENCOUNTER 2025-02-11 01:57 | Emergency (ER) | payer MEDICARE, BC ==
[2025-02-11 02:29] LABS: BASOPHILS ABSOLUTE AUTO 0.03 K/uL (0.00-0.20); BASOPHILS PERCENT AUTO 0.4 % (0.0-1.0); EOSINOPHILS ABSOLUTE AUTO 0.15 K/uL (0.00-0.45); EOSINOPHILS PERCENT AUTO 2.0 % (0.0-6.0); IMMATURE GRAN ABSOLUTE AUTO 0.02 K/uL (0.00-0.05); IMMATURE GRAN PERCENT AUTO 0.3 % (0.0-0.4); LYMPHOCYTES ABSOLUTE AUTO 1.04 K/uL (1.00-4.80); LYMPHOCYTES PERCENT AUTO 13.9 % (24.0-44.0); MEAN PLATELET VOLUME 9.5 fL (9.4-12.3); MONOCYTES ABSOLUTE AUTO 0.58 K/uL (0.00-0.80); MONOCYTES PERCENT AUTO 7.7 % (0.0-8.0); NEUTROPHILS ABSOLUTE AUTO 5.68 K/uL (1.80-7.70); NEUTROPHILS PERCENT AUTO 75.7 % (41.0-71.0); NRBC ABSOLUTE 0.00 K/uL (0.00-0.02); NRBC PERCENT 0.0 /100WBC (0.0-0.2); PLATELET COUNT,PLT 177 K/uL (150-400); RED BLOOD CELL COUNT 2.79 M/uL (4.10-5.30); WHITE BLOOD CELL COUNT,WBC 7.50 K/uL (3.9-11.3)
[2025-02-11 03:00] LABS: A/G RATIO 0.5 (0.9-1.6); ALANINE AMINOTRANSFERASE,ALT 15 IU/L (14-63); ASPARTATE AMNIOTRANSFERASE,AST 22 IU/L (15-37); BILIRUBIN TOTAL 0.5 mg/dL (0.2-1.0); BLOOD UREA NITROGEN,BUN 24 mg/dL (7.0-18.0); CARBON DIOXIDE,CO2 25.8 mmol/L (21.0-32.0); CHLORIDE,CL 105 mmol/L (98-107); CREATININE 1.8 mg/dL (0.6-1.0); GLUCOSE RANDOM 132 mg/dL (74-106); POTASSIUM,K 4.0 mmol/L (3.5-5.1); PRO B-TYPE NATRIUR PEPT,BNPPRO 5766 pg/mL (0-450); PROTEIN TOTAL,TP 6.7 g/dL (6.4-8.2); SODIUM,NA 139 mmol/L (136-145)
[2025-02-11 03:01] LABS: ESTIMATED GFR 29 mL/min (>60)
[2025-02-11] MEDS: fentaNYL 50 MCG/ML SDV IVPUSH ONE (06:14)
== END 2025-02-11 06:30 | disposition home or self-care (01) ==
LOC: MW.ED 01:57
DX: I87.2 Venous insufficiency (chronic) (peripheral) (principal); M25.551 Pain in right hip; M25.552 Pain in left hip; I48.91 Unspecified atrial fibrillation; I50.9 Heart failure, unspecified; Z90.49 Acquired absence of other specified parts of digestive tract; Z88.0 Allergy status to penicillin; Z88.8 Allergy status to other drugs, medicaments and biological substances; Z88.1 Allergy status to other antibiotic agents; Z79.899 Other long term (current) drug therapy; Z88.2 Allergy status to sulfonamides; Z91.048 Other nonmedicinal substance allergy status; Z91.041 Radiographic dye allergy status; Z79.01 Long term (current) use of anticoagulants
CPT/HCPCS: 36415; 80053; 83880; 84484; 85025; 93005; 99283; 99284

== ENCOUNTER 2025-02-16 06:40 | Emergency (ER) | payer MEDICARE, BC ==
[2025-02-16 06:52] LABS: BASOPHILS ABSOLUTE AUTO 0.03 K/uL (0.00-0.20); BASOPHILS PERCENT AUTO 0.4 % (0.0-1.0); EOSINOPHILS ABSOLUTE AUTO 0.12 K/uL (0.00-0.45); EOSINOPHILS PERCENT AUTO 1.4 % (0.0-6.0); IMMATURE GRAN ABSOLUTE AUTO 0.03 K/uL (0.00-0.05); IMMATURE GRAN PERCENT AUTO 0.4 % (0.0-0.4); LYMPHOCYTES ABSOLUTE AUTO 1.74 K/uL (1.00-4.80); LYMPHOCYTES PERCENT AUTO 20.5 % (24.0-44.0); MEAN PLATELET VOLUME 9.4 fL (9.4-12.3); MONOCYTES ABSOLUTE AUTO 0.53 K/uL (0.00-0.80); MONOCYTES PERCENT AUTO 6.3 % (0.0-8.0); NEUTROPHILS ABSOLUTE AUTO 6.02 K/uL (1.80-7.70); NEUTROPHILS PERCENT AUTO 71.0 % (41.0-71.0); NRBC ABSOLUTE 0.00 K/uL (0.00-0.02); NRBC PERCENT 0.0 /100WBC (0.0-0.2); PLATELET COUNT,PLT 219 K/uL (150-400); RED BLOOD CELL COUNT 2.65 M/uL (4.10-5.30); WHITE BLOOD CELL COUNT,WBC 8.47 K/uL (3.9-11.3)
[2025-02-16 07:04] LABS: PTT,PARTIAL THROMBOPLSTIN TIME 65.7 SEC (23.9-30.7)
[2025-02-16 07:08] LABS: INR 6.33 (0.86-1.11)
[2025-02-16 07:11] LABS: A/G RATIO 0.6 (0.9-1.6); ALANINE AMINOTRANSFERASE,ALT 17.0 IU/L (14-63); ASPARTATE AMNIOTRANSFERASE,AST 23.0 IU/L (15-37); BILIRUBIN TOTAL 0.7 mg/dL (0.2-1.0); BLOOD UREA NITROGEN,BUN 33.0 mg/dL (7.0-18.0); CARBON DIOXIDE,CO2 26.0 mmol/L (21.0-32.0); CHLORIDE,CL 108.0 mmol/L (98-107); CREATININE 2.1 mg/dL (0.6-1.0); EST CRCL DRUG DOSING (CG) 21.82 mL/min; GLUCOSE RANDOM 121.0 mg/dL (74-106); POTASSIUM,K 3.8 mmol/L (3.5-5.1); PROTEIN TOTAL,TP 6.9 g/dL (6.4-8.2); SODIUM,NA 143.0 mmol/L (136-145)
[2025-02-16 07:13] LABS: ESTIMATED GFR 24.0 mL/min (>60)
[2025-02-16] MEDS: Acetaminophen/oxyCODONE 325-5 MG Tab PO ONE (09:57)
== END 2025-02-16 10:05 | disposition home or self-care (01) ==
LOC: MW.ED 06:40
DX: L89.159 Pressure ulcer of sacral region, unspecified stage (principal); G89.4 Chronic pain syndrome; N18.30 Chronic kidney disease, stage 3 unspecified; Z88.8 Allergy status to other drugs, medicaments and biological substances; Z88.1 Allergy status to other antibiotic agents; Z88.0 Allergy status to penicillin; Z91.041 Radiographic dye allergy status; Z79.899 Other long term (current) drug therapy
CPT/HCPCS: 36415; 80053; 83735; 85025; 85610; 85652; 85730; 86140; 99283; A9270

== ENCOUNTER 2025-03-31 21:00 | Emergency (ER) | payer MEDICARE, BC, OTHER ==
[2025-03-31] MEDS ORDERED: Sodium Chloride 0.9% 10 ML Syringe FLUSH PRN (21:07)
[2025-03-31] MEDS ORDERED: Sodium Chloride 0.9% 2.5 ML Syringe FLUSH PRN (21:07)
[2025-03-31 21:11] LABS: BASOPHILS ABSOLUTE AUTO 0.02 K/uL (0.00-0.20); BASOPHILS PERCENT AUTO 0.3 % (0.0-1.0); EOSINOPHILS ABSOLUTE AUTO 0.11 K/uL (0.00-0.45); EOSINOPHILS PERCENT AUTO 1.5 % (0.0-6.0); IMMATURE GRAN ABSOLUTE AUTO 0.03 K/uL (0.00-0.05); IMMATURE GRAN PERCENT AUTO 0.4 % (0.0-0.4); LYMPHOCYTES ABSOLUTE AUTO 1.07 K/uL (1.00-4.80); LYMPHOCYTES PERCENT AUTO 14.4 % (24.0-44.0); MEAN PLATELET VOLUME 10.1 fL (9.4-12.3); MONOCYTES ABSOLUTE AUTO 0.57 K/uL (0.00-0.80); MONOCYTES PERCENT AUTO 7.7 % (0.0-8.0); NEUTROPHILS ABSOLUTE AUTO 5.63 K/uL (1.80-7.70); NEUTROPHILS PERCENT AUTO 75.7 % (41.0-71.0); NRBC ABSOLUTE 0.00 K/uL (0.00-0.02); NRBC PERCENT 0.0 /100WBC (0.0-0.2); PLATELET COUNT,PLT 161 K/uL (150-400); RED BLOOD CELL COUNT 2.94 M/uL (4.10-5.30); WHITE BLOOD CELL COUNT,WBC 7.43 K/uL (3.9-11.3)
[2025-03-31 21:33] LABS: INR 3.55 (0.86-1.11)
[2025-03-31 21:46] LABS: A/G RATIO 0.6 (0.9-1.6); ALANINE AMINOTRANSFERASE,ALT 30 IU/L (14-63); ASPARTATE AMNIOTRANSFERASE,AST 38 IU/L (15-37); BILIRUBIN TOTAL 0.4 mg/dL (0.2-1.0); BLOOD UREA NITROGEN,BUN 38 mg/dL (7.0-18.0); CARBON DIOXIDE,CO2 25.9 mmol/L (21.0-32.0); CHLORIDE,CL 103 mmol/L (98-107); CREATININE 2.1 mg/dL (0.6-1.0); GLUCOSE RANDOM 107 mg/dL (74-106); POTASSIUM,K 3.4 mmol/L (3.5-5.1); PRO B-TYPE NATRIUR PEPT,BNPPRO 7246 pg/mL (0-450); PROTEIN TOTAL,TP 7.0 g/dL (6.4-8.2); SODIUM,NA 138 mmol/L (136-145)
[2025-03-31 21:47] LABS: ESTIMATED GFR 24 mL/min (>60)
== END 2025-04-01 00:20 | disposition home or self-care (01) ==
LOC: MW.ED 21:00
DX: S00.03XA Contusion of scalp, initial encounter (principal); E83.51 Hypocalcemia; R76.8 Other specified abnormal immunological findings in serum; R79.89 Other specified abnormal findings of blood chemistry; I48.91 Unspecified atrial fibrillation; I50.9 Heart failure, unspecified; Z90.710 Acquired absence of both cervix and uterus; Z79.01 Long term (current) use of anticoagulants; Z79.899 Other long term (current) drug therapy; Z88.0 Allergy status to penicillin; Z88.1 Allergy status to other antibiotic agents; Z88.2 Allergy status to sulfonamides; Z88.5 Allergy status to narcotic agent; Z88.8 Allergy status to other drugs, medicaments and biological substances; Z91.048 Other nonmedicinal substance allergy status; Z91.018 Allergy to other foods; Z88.7 Allergy status to serum and vaccine; W01.198A Fall on same level from slipping, tripping and stumbling with subsequent striking against other object, initial encounter
CPT/HCPCS: 36415; 70450; 72125; 80053; 83735; 83880; 84484; 85025; 85610; 93005; 99284; A9270; 93010; 99283

== ENCOUNTER 2025-04-05 16:16 | Emergency (ER) | payer MEDICARE, BC ==
[2025-04-05] MEDS ORDERED: Sodium Chloride 0.9% 2.5 ML Syringe FLUSH PRN (17:46)
[2025-04-05 18:31] LABS: BASOPHILS ABSOLUTE AUTO 0.03 K/uL (0.00-0.20); BASOPHILS PERCENT AUTO 0.4 % (0.0-1.0); EOSINOPHILS ABSOLUTE AUTO 0.13 K/uL (0.00-0.45); EOSINOPHILS PERCENT AUTO 1.8 % (0.0-6.0); IMMATURE GRAN ABSOLUTE AUTO 0.02 K/uL (0.00-0.05); IMMATURE GRAN PERCENT AUTO 0.3 % (0.0-0.4); LYMPHOCYTES ABSOLUTE AUTO 1.38 K/uL (1.00-4.80); LYMPHOCYTES PERCENT AUTO 18.6 % (24.0-44.0); MEAN PLATELET VOLUME 10.3 fL (9.4-12.3); MONOCYTES ABSOLUTE AUTO 0.54 K/uL (0.00-0.80); MONOCYTES PERCENT AUTO 7.3 % (0.0-8.0); NEUTROPHILS ABSOLUTE AUTO 5.32 K/uL (1.80-7.70); NEUTROPHILS PERCENT AUTO 71.6 % (41.0-71.0); NRBC ABSOLUTE 0.00 K/uL (0.00-0.02); NRBC PERCENT 0.0 /100WBC (0.0-0.2); PLATELET COUNT,PLT 183 K/uL (150-400); RED BLOOD CELL COUNT 2.72 M/uL (4.10-5.30); WHITE BLOOD CELL COUNT,WBC 7.42 K/uL (3.9-11.3)
[2025-04-05 19:04] LABS: A/G RATIO 0.6 (0.9-1.6); ALANINE AMINOTRANSFERASE,ALT 18.0 IU/L (14-63); ASPARTATE AMNIOTRANSFERASE,AST 33.0 IU/L (15-37); BILIRUBIN TOTAL 0.7 mg/dL (0.2-1.0); BLOOD UREA NITROGEN,BUN 41.0 mg/dL (7.0-18.0); CARBON DIOXIDE,CO2 23.1 mmol/L (21.0-32.0); CHLORIDE,CL 99.0 mmol/L (98-107); CREATININE 2.4 mg/dL (0.6-1.0); EST CRCL DRUG DOSING (CG) 19.09 mL/min; GLUCOSE RANDOM 103.0 mg/dL (74-106); POTASSIUM,K 3.4 mmol/L (3.5-5.1); PROTEIN TOTAL,TP 7.3 g/dL (6.4-8.2); SODIUM,NA 135.0 mmol/L (136-145)
[2025-04-05 19:07] LABS: ESTIMATED GFR 20.0 mL/min (>60)
[2025-04-05] MEDS: cefTRIAXone 2 GM in Water For Injection, Sterile 20 ML IVPUSH ONE (19:22)
[2025-04-05] MEDS: Sodium Chloride 0.9% 10 ML Syringe FLUSH PRN (19:24)
[2025-04-05] MEDS: VANCOmycin 2 GM/400 ML 2 GM in Premix Bag 1 BAG IV ONE (19:25)
[2025-04-05 20:01] LABS: INR 3.96 (0.86-1.11)
[2025-04-05 20:24] LABS: LACTIC ACID 1.6 mmol/L (0.4-2.0)
== END 2025-04-05 22:25 | disposition home or self-care (01) ==
LOC: MW.ED 16:16
DX: L03.115 Cellulitis of right lower limb (principal); L03.116 Cellulitis of left lower limb; I48.91 Unspecified atrial fibrillation; I50.9 Heart failure, unspecified; Z88.0 Allergy status to penicillin; Z91.048 Other nonmedicinal substance allergy status; Z88.8 Allergy status to other drugs, medicaments and biological substances; Z79.899 Other long term (current) drug therapy; Z79.01 Long term (current) use of anticoagulants; Z90.49 Acquired absence of other specified parts of digestive tract; Z88.7 Allergy status to serum and vaccine
CPT/HCPCS: 36415; 80053; 83605; 83690; 83735; 85025; 85610; 87040; 87070; 87077; 87186; 87205; 96365; 96366; 96375; 99283; A4216; J0696; J3375; J7030

== ENCOUNTER 2025-04-10 02:43 | Inpatient (IN) | payer MEDICARE, BC ==
[2025-04-10] MEDS ORDERED: Sodium Chloride 0.9% 10 ML Syringe FLUSH PRN ×2 (03:13→11:15)
[2025-04-10] MEDS ORDERED: Sodium Chloride 0.9% 2.5 ML Syringe FLUSH PRN ×2 (03:13→11:15)
[2025-04-10 03:19] LABS: BASOPHILS ABSOLUTE AUTO 0.03 K/uL (0.00-0.20); BASOPHILS PERCENT AUTO 0.4 % (0.0-1.0); EOSINOPHILS ABSOLUTE AUTO 0.10 K/uL (0.00-0.45); EOSINOPHILS PERCENT AUTO 1.3 % (0.0-6.0); IMMATURE GRAN ABSOLUTE AUTO 0.03 K/uL (0.00-0.05); IMMATURE GRAN PERCENT AUTO 0.4 % (0.0-0.4); LYMPHOCYTES ABSOLUTE AUTO 1.50 K/uL (1.00-4.80); LYMPHOCYTES PERCENT AUTO 19.8 % (24.0-44.0); MEAN PLATELET VOLUME 9.9 fL (9.4-12.3); MONOCYTES ABSOLUTE AUTO 0.60 K/uL (0.00-0.80); MONOCYTES PERCENT AUTO 7.9 % (0.0-8.0); NEUTROPHILS ABSOLUTE AUTO 5.32 K/uL (1.80-7.70); NEUTROPHILS PERCENT AUTO 70.2 % (41.0-71.0); NRBC ABSOLUTE 0.00 K/uL (0.00-0.02); NRBC PERCENT 0.0 /100WBC (0.0-0.2); PLATELET COUNT,PLT 169 K/uL (150-400); RED BLOOD CELL COUNT 2.65 M/uL (4.10-5.30); WHITE BLOOD CELL COUNT,WBC 7.58 K/uL (3.9-11.3)
[2025-04-10 03:36] LABS: LACTIC ACID 1.3 mmol/L (0.4-2.0)
[2025-04-10 03:39] LABS: A/G RATIO 0.6 (0.9-1.6); ALANINE AMINOTRANSFERASE,ALT 15.0 IU/L (14-63); ASPARTATE AMNIOTRANSFERASE,AST 25.0 IU/L (15-37); BILIRUBIN TOTAL 0.5 mg/dL (0.2-1.0); BLOOD UREA NITROGEN,BUN 37.0 mg/dL (7.0-18.0); CARBON DIOXIDE,CO2 22.9 mmol/L (21.0-32.0); CHLORIDE,CL 99.0 mmol/L (98-107); CREATININE 2.7 mg/dL (0.6-1.0); EST CRCL DRUG DOSING (CG) 16.97 mL/min; GLUCOSE RANDOM 98.0 mg/dL (74-106); POTASSIUM,K 2.5 mmol/L (3.5-5.1); PRO B-TYPE NATRIUR PEPT,BNPPRO 8870.0 pg/mL (0-450); PROTEIN TOTAL,TP 6.2 g/dL (6.4-8.2); SODIUM,NA 137.0 mmol/L (136-145)
[2025-04-10 03:46] LABS: ESTIMATED GFR 18.0 mL/min (>60)
[2025-04-10] MEDS: Magnesium Sulfate 2 GM/50 mL 2 GM in Premix Bag 1 BAG IV ONE (04:23)
[2025-04-10] MEDS: Potassium Chloride 20 MEQ in Premix Bag 1 BAG IV ONE (04:24)
[2025-04-10] MEDS: Norepinephrine Bit/D5W Premix 250 ML IV SCH (05:32)
[2025-04-10 06:17] LABS: BASOPHILS ABSOLUTE AUTO 0.03 K/uL (0.00-0.20); BASOPHILS PERCENT AUTO 0.4 % (0.0-1.0); EOSINOPHILS ABSOLUTE AUTO 0.10 K/uL (0.00-0.45); EOSINOPHILS PERCENT AUTO 1.4 % (0.0-6.0); IMMATURE GRAN ABSOLUTE AUTO 0.01 K/uL (0.00-0.05); IMMATURE GRAN PERCENT AUTO 0.1 % (0.0-0.4); LYMPHOCYTES ABSOLUTE AUTO 1.46 K/uL (1.00-4.80); LYMPHOCYTES PERCENT AUTO 21.0 % (24.0-44.0); MEAN PLATELET VOLUME 10.1 fL (9.4-12.3); MONOCYTES ABSOLUTE AUTO 0.46 K/uL (0.00-0.80); MONOCYTES PERCENT AUTO 6.6 % (0.0-8.0); NEUTROPHILS ABSOLUTE AUTO 4.89 K/uL (1.80-7.70); NEUTROPHILS PERCENT AUTO 70.5 % (41.0-71.0); NRBC ABSOLUTE 0.00 K/uL (0.00-0.02); NRBC PERCENT 0.0 /100WBC (0.0-0.2); PLATELET COUNT,PLT 155 K/uL (150-400); RED BLOOD CELL COUNT 2.72 M/uL (4.10-5.30); WHITE BLOOD CELL COUNT,WBC 6.95 K/uL (3.9-11.3)
[2025-04-10 06:20] LABS: INR 2.49 (0.86-1.11); PTT,PARTIAL THROMBOPLSTIN TIME 46.3 SEC (23.9-30.7)
[2025-04-10] MEDS: Potassium Chloride 20 MEQ Tab.ER PO ONE ×2 (06:42→08:19)
[2025-04-10 06:44] LABS: GLUCOSE,URINE NEGATIVE (NEGATIVE); OCCULT BLOOD,URINE NEGATIVE (NEGATIVE)
[2025-04-10 06:44] LABS: BLOOD UREA NITROGEN,BUN 40.0 mg/dL (7.0-18.0); CARBON DIOXIDE,CO2 24.0 mmol/L (21.0-32.0); CHLORIDE,CL 101.0 mmol/L (98-107); CREATININE 2.6 mg/dL (0.6-1.0); EST CRCL DRUG DOSING (CG) 17.62 mL/min; GLUCOSE RANDOM 107.0 mg/dL (74-106); POTASSIUM,K 2.6 mmol/L (3.5-5.1); SODIUM,NA 135.0 mmol/L (136-145)
[2025-04-10 06:48] LABS: ESTIMATED GFR 18.0 mL/min (>60)
[2025-04-10 06:49] LABS: APPEARANCE,URINE HAZY
[2025-04-10 06:53] LABS: EPITHELIAL CELLS,URINE RARE (NONE-FEW)
[2025-04-10] MEDS: Calcium Gluconate 10% 1 GM/10 ML SDV IV STA (08:19)
[2025-04-10] MEDS ORDERED: Ondansetron 4 MG/2 ML SDV IVPUSH PRN (11:15)
[2025-04-10] MEDS ORDERED: Ondansetron 4 MG Tab.DIS PO PRN (11:15)
[2025-04-10 14:36] LABS: INR 2.45 (0.86-1.11); PTT,PARTIAL THROMBOPLSTIN TIME 43.7 SEC (23.9-30.7)
[2025-04-10 14:39] LABS: BLOOD UREA NITROGEN,BUN 36.0 mg/dL (7.0-18.0); CARBON DIOXIDE,CO2 23.1 mmol/L (21.0-32.0); CHLORIDE,CL 101.0 mmol/L (98-107); CREATININE 2.4 mg/dL (0.6-1.0); EST CRCL DRUG DOSING (CG) 19.09 mL/min; GLUCOSE RANDOM 122.0 mg/dL (74-106); POTASSIUM,K 3.3 mmol/L (3.5-5.1); SODIUM,NA 136.0 mmol/L (136-145)
[2025-04-10 14:41] LABS: ESTIMATED GFR 20.0 mL/min (>60)
[2025-04-10] MEDS: Warfarin Sliding Scale PO SCH (17:22)
[2025-04-10 21:03] LABS: BLOOD UREA NITROGEN,BUN 37.0 mg/dL (7.0-18.0); CARBON DIOXIDE,CO2 23.9 mmol/L (21.0-32.0); CHLORIDE,CL 101.0 mmol/L (98-107); CREATININE 2.5 mg/dL (0.6-1.0); EST CRCL DRUG DOSING (CG) 18.33 mL/min; ESTIMATED GFR 19.0 mL/min (>60); GLUCOSE RANDOM 158.0 mg/dL (74-106); PHOSPHORUS 3.8 mg/dL (2.6-4.7); POTASSIUM,K 3.6 mmol/L (3.5-5.1); SODIUM,NA 135.0 mmol/L (136-145)
[2025-04-10] MEDS: Potassium Chloride 20 MEQ Tab.ER PO SCH (21:28)
[2025-04-10] MEDS: Calcium Gluc in NaCl, ISO-OSM 1,000 MG in Premix Bag 1 BAG IV SCH (21:29)
[2025-04-10] MEDS: Magnesium Sulfate 4 GM/100 mL 4 GM in Premix Bag 1 BAG IV ONE (21:30)
[2025-04-11 06:08] LABS: BASOPHILS ABSOLUTE AUTO 0.02 K/uL (0.00-0.20); BASOPHILS PERCENT AUTO 0.2 % (0.0-1.0); EOSINOPHILS ABSOLUTE AUTO 0.10 K/uL (0.00-0.45); EOSINOPHILS PERCENT AUTO 1.2 % (0.0-6.0); IMMATURE GRAN ABSOLUTE AUTO 0.01 K/uL (0.00-0.05); IMMATURE GRAN PERCENT AUTO 0.1 % (0.0-0.4); LYMPHOCYTES ABSOLUTE AUTO 1.48 K/uL (1.00-4.80); LYMPHOCYTES PERCENT AUTO 17.6 % (24.0-44.0); MEAN PLATELET VOLUME 9.3 fL (9.4-12.3); MONOCYTES ABSOLUTE AUTO 0.52 K/uL (0.00-0.80); MONOCYTES PERCENT AUTO 6.2 % (0.0-8.0); NEUTROPHILS ABSOLUTE AUTO 6.28 K/uL (1.80-7.70); NEUTROPHILS PERCENT AUTO 74.7 % (41.0-71.0); NRBC ABSOLUTE 0.00 K/uL (0.00-0.02); NRBC PERCENT 0.0 /100WBC (0.0-0.2); PLATELET COUNT,PLT 170 K/uL (150-400); RED BLOOD CELL COUNT 2.75 M/uL (4.10-5.30); WHITE BLOOD CELL COUNT,WBC 8.41 K/uL (3.9-11.3)
[2025-04-11 06:24] LABS: INR 2.45 (0.86-1.11)
[2025-04-11 06:32] LABS: BLOOD UREA NITROGEN,BUN 35.0 mg/dL (7.0-18.0); CARBON DIOXIDE,CO2 25.2 mmol/L (21.0-32.0); CHLORIDE,CL 102.0 mmol/L (98-107); CREATININE 2.4 mg/dL (0.6-1.0); EST CRCL DRUG DOSING (CG) 19.09 mL/min; ESTIMATED GFR 20.0 mL/min (>60); GLUCOSE RANDOM 124.0 mg/dL (74-106); POTASSIUM,K 3.9 mmol/L (3.5-5.1); SODIUM,NA 136.0 mmol/L (136-145)
[2025-04-11] MEDS: Cholecalciferol (Vitamin D3) 25 MCG Tab PO SCH (08:07)
[2025-04-11] MEDS: Benzocaine/Cetylpyridinium/Menthol Lozenge MUCMEM PRN (08:35)
[2025-04-11] MEDS ORDERED: Nystatin Topical Powder 15 GM Bottle TOP PRN (09:04)
[2025-04-11] MEDS: Nystatin Topical Powder 15 GM Bottle TOP PRN (09:30)
[2025-04-11] MEDS ORDERED: Hydrocolloid Dressing 4x4 Bandage TOP ONE (09:53)
[2025-04-11] MEDS ORDERED: Hydrocolloid Dressing 4x4 Bandage TOP SCH (10:00)
[2025-04-11] MEDS: Hydrocolloid Dressing 4x4 Bandage TOP SCH (10:33)
[2025-04-11] MEDS ORDERED: Calcium Gluconate 11 GM in Sodium Chloride 0.9% 1,000 ML IV SCH (16:00)
[2025-04-11] MEDS: VITAMIN D2 50000 UNIT PO ONE (17:46)
[2025-04-11] MEDS: CALCIUM GLUCONATE IV SCH (17:47)
[2025-04-11] MEDS: SODIUM CHLORIDE 0.9% IV SCH (17:47)
[2025-04-12 06:03] LABS: BASOPHILS ABSOLUTE AUTO 0.03 K/uL (0.00-0.20); BASOPHILS PERCENT AUTO 0.5 % (0.0-1.0); EOSINOPHILS ABSOLUTE AUTO 0.16 K/uL (0.00-0.45); EOSINOPHILS PERCENT AUTO 2.4 % (0.0-6.0); IMMATURE GRAN ABSOLUTE AUTO 0.02 K/uL (0.00-0.05); IMMATURE GRAN PERCENT AUTO 0.3 % (0.0-0.4); LYMPHOCYTES ABSOLUTE AUTO 1.61 K/uL (1.00-4.80); LYMPHOCYTES PERCENT AUTO 24.2 % (24.0-44.0); MEAN PLATELET VOLUME 9.2 fL (9.4-12.3); MONOCYTES ABSOLUTE AUTO 0.44 K/uL (0.00-0.80); MONOCYTES PERCENT AUTO 6.6 % (0.0-8.0); NEUTROPHILS ABSOLUTE AUTO 4.39 K/uL (1.80-7.70); NEUTROPHILS PERCENT AUTO 66.0 % (41.0-71.0); NRBC ABSOLUTE 0.00 K/uL (0.00-0.02); NRBC PERCENT 0.0 /100WBC (0.0-0.2); PLATELET COUNT,PLT 164 K/uL (150-400); RED BLOOD CELL COUNT 2.65 M/uL (4.10-5.30); WHITE BLOOD CELL COUNT,WBC 6.65 K/uL (3.9-11.3)
[2025-04-12 06:36] LABS: INR 2.38 (0.86-1.11)
[2025-04-12 07:19] LABS: A/G RATIO 0.5 (0.9-1.6); ALANINE AMINOTRANSFERASE,ALT 11.0 IU/L (14-63); ASPARTATE AMNIOTRANSFERASE,AST 23.0 IU/L (15-37); BILIRUBIN TOTAL 0.5 mg/dL (0.2-1.0); BLOOD UREA NITROGEN,BUN 29.0 mg/dL (7.0-18.0); CARBON DIOXIDE,CO2 24.6 mmol/L (21.0-32.0); CHLORIDE,CL 104.0 mmol/L (98-107); CREATININE 2.0 mg/dL (0.6-1.0); EST CRCL DRUG DOSING (CG) 22.91 mL/min; GLUCOSE RANDOM 111.0 mg/dL (74-106); POTASSIUM,K 3.8 mmol/L (3.5-5.1); PROTEIN TOTAL,TP 6.0 g/dL (6.4-8.2); SODIUM,NA 136.0 mmol/L (136-145)
[2025-04-12 07:33] LABS: ESTIMATED GFR 25.0 mL/min (>60)
[2025-04-12] MEDS: Metoprolol Succinate 100 MG Tab.ER PO SCH (09:49)
[2025-04-13 06:18] LABS: BASOPHILS ABSOLUTE AUTO 0.03 K/uL (0.00-0.20); BASOPHILS PERCENT AUTO 0.4 % (0.0-1.0); EOSINOPHILS ABSOLUTE AUTO 0.20 K/uL (0.00-0.45); EOSINOPHILS PERCENT AUTO 3.0 % (0.0-6.0); IMMATURE GRAN ABSOLUTE AUTO 0.01 K/uL (0.00-0.05); IMMATURE GRAN PERCENT AUTO 0.1 % (0.0-0.4); LYMPHOCYTES ABSOLUTE AUTO 1.50 K/uL (1.00-4.80); LYMPHOCYTES PERCENT AUTO 22.4 % (24.0-44.0); MEAN PLATELET VOLUME 9.5 fL (9.4-12.3); MONOCYTES ABSOLUTE AUTO 0.46 K/uL (0.00-0.80); MONOCYTES PERCENT AUTO 6.9 % (0.0-8.0); NEUTROPHILS ABSOLUTE AUTO 4.49 K/uL (1.80-7.70); NEUTROPHILS PERCENT AUTO 67.2 % (41.0-71.0); NRBC ABSOLUTE 0.00 K/uL (0.00-0.02); NRBC PERCENT 0.0 /100WBC (0.0-0.2); PLATELET COUNT,PLT 167 K/uL (150-400); RED BLOOD CELL COUNT 2.71 M/uL (4.10-5.30); WHITE BLOOD CELL COUNT,WBC 6.69 K/uL (3.9-11.3)
[2025-04-13 06:32] LABS: INR 2.43 (0.86-1.11)
[2025-04-13 06:42] LABS: A/G RATIO 0.5 (0.9-1.6); ALANINE AMINOTRANSFERASE,ALT 9.0 IU/L (14-63); ASPARTATE AMNIOTRANSFERASE,AST 19.0 IU/L (15-37); BILIRUBIN TOTAL 0.7 mg/dL (0.2-1.0); BLOOD UREA NITROGEN,BUN 23.0 mg/dL (7.0-18.0); CARBON DIOXIDE,CO2 24.7 mmol/L (21.0-32.0); CHLORIDE,CL 104.0 mmol/L (98-107); CREATININE 1.8 mg/dL (0.6-1.0); EST CRCL DRUG DOSING (CG) 25.45 mL/min; GLUCOSE RANDOM 127.0 mg/dL (74-106); POTASSIUM,K 3.8 mmol/L (3.5-5.1); PROTEIN TOTAL,TP 6.1 g/dL (6.4-8.2); SODIUM,NA 136.0 mmol/L (136-145)
[2025-04-13 06:54] LABS: ESTIMATED GFR 29.0 mL/min (>60)
[2025-04-15 05:03] LABS: INTACT PTH 549.0 pg/mL (15-65)
== END 2025-04-13 16:50 | disposition home or self-care (01) | DRG 641 ==
LOC: MW.ED 02:43 → MW.ICU 09:40 → MW.MS 04-12 12:27
PROVIDERS: ADMIT Family Medicine; ATTEND Family Medicine
PROC: 05HN33Z Insertion of Infusion Device into Left Internal Jugular Vein, Percutaneous Approach (ICD-10-PCS; principal; 2025-04-10)
DX: M54.50 Low back pain, unspecified (principal); E87.6 Hypokalemia; I11.0 Hypertensive heart disease with heart failure; L03.115 Cellulitis of right lower limb; N17.9 Acute kidney failure, unspecified; L03.116 Cellulitis of left lower limb; I95.9 Hypotension, unspecified; Z91.048 Other nonmedicinal substance allergy status; E83.51 Hypocalcemia; S30.810A Abrasion of lower back and pelvis, initial encounter; G89.29 Other chronic pain; W19.XXXA Unspecified fall, initial encounter; M54.9 Dorsalgia, unspecified; R26.2 Difficulty in walking, not elsewhere classified; D64.9 Anemia, unspecified; E86.0 Dehydration; H54.7 Unspecified visual loss; I48.91 Unspecified atrial fibrillation; I50.9 Heart failure, unspecified; J44.9 Chronic obstructive pulmonary disease, unspecified; M79.7 Fibromyalgia; M19.90 Unspecified osteoarthritis, unspecified site; M81.0 Age-related osteoporosis without current pathological fracture; E66.9 Obesity, unspecified; Z96.619 Presence of unspecified artificial shoulder joint; Z96.659 Presence of unspecified artificial knee joint; Z68.39 Body mass index [BMI] 39.0-39.9, adult; Z85.820 Personal history of malignant melanoma of skin; Z88.0 Allergy status to penicillin; Z88.8 Allergy status to other drugs, medicaments and biological substances; Z98.49 Cataract extraction status, unspecified eye; Z90.49 Acquired absence of other specified parts of digestive tract; Z79.01 Long term (current) use of anticoagulants; Z86.718 Personal history of other venous thrombosis and embolism; Z79.899 Other long term (current) drug therapy; Z98.890 Other specified postprocedural states; Z90.710 Acquired absence of both cervix and uterus
CPT/HCPCS: 36415; 51702; 70450; 71250; 72125; 72128; 72131; 74176; 80048; 80053; 81001; 83605; 83735; 83880; 84484; 85025 ×2; 85610; 85730; 86850; 86900; 86901; 87040 ×2; 87086; 93005; 96365; 96366; 96367; 96368; 96376; 99285; A9270 ×2; J0612; J3475; J3480 ×2; J7040 ×2; 36556; 77001; 77001-26; 82306; 82310; 82330; 83970; 84100; 97110-GP; 97163-GP; 97530-GP; 99100; 99284; J0613; J7030